=== PATIENT | female | born 1950 | race Caucasian/White ===

== ENCOUNTER 2018-04-20 19:47 | Emergency (ER) | payer MEDICARE, OTHER ==
[2018-04-20 20:04] VITALS: BP 164/94; PULSE 72; RESP 20; TEMP 98.4; O2SAT 98
[2018-04-20 20:28] LABS: SQUAMOUS EPITHIAL 1 /hpf (0-5); URINE BACTERIA MANY (<OCC); URINE BILIRUBIN NEGATIVE (NEGATIVE); URINE BLOOD 3+ (NEGATIVE); URINE CLARITY Hazy (Clear); URINE COLOR Yellow (YELLOW); URINE GLUCOSE (UA) NORMAL (Normal); URINE LEUKOCYTE ESTERASE 3+ Leu/uL (Negative); URINE PROTEIN 2+ mg/dL (NEGATIVE); URINE UROBILINOGEN NORMAL mg/dL (0.2-1.0); WBC CLUMPS MOD /hpf
--- NOTE | 2018-04-20 20:50 | C.PDOC ---
History Of Present Illness 67 year old female presents to ED complaining of dysuria associated with mid suprapubic pressure since yesterday. Patient reports she was recently treated UTI with Vantin that was completed 2 weeks ago. Patient states she felt better until yesterday. Denies back pain, fever, vomiting hematuria. Time Seen by Provider: 04/20/18 20:10 Chief Complaint (Nursing): Female Genitourinary History Per: Patient History/Exam Limitations: no limitations Onset/Duration Of Symptoms: Days Current Symptoms Are (Timing): Still Present Past Medical History Reviewed: Historical Data, Nursing Documentation, Vital Signs Vital Signs: Last Vital Signs Temp 98.4 F 04/20/18 19:58 Pulse 72 04/20/18 19:58 Resp 20 04/20/18 19:58 BP 164/94 H 04/20/18 19:58 Pulse Ox 98 04/20/18 21:25 - Medical History PMH: Arthritis, HTN Denies: Chronic Kidney Disease Surgical History: No Surg Hx Family History: States: No Known Family Hx - Social History Hx Alcohol Use: No Hx Substance Use: No Review Of Systems Except As Marked, All Systems Reviewed And Found Negative. Constitutional: Negative for: Fever Gastrointestinal: Positive for: Other (mid suprapubic pressure). Negative for: Vomiting Genitourinary: Positive for: Dysuria. Negative for: Hematuria Musculoskeletal: Negative for: Back Pain Physical Exam - Physical Exam Appears: Non-toxic, No Acute Distress Skin: Warm, Dry Head: Atraumatic, Normacephalic Eye(s): bilateral: Normal Inspection Gastrointestinal/Abdominal: Soft, No Tenderness Back: No CVA Tenderness Neurological/Psych: Oriented x3, Normal Speech, Normal Cognition ED Course And Treatment O2 Sat by Pulse Oximetry: 98 (RA) Pulse Ox Interpretation: Normal Progress Note: UA indicated UTI. Pyridium ordered. Urine culture was sent. Patient refusing RX for cipro- states it causes severe nausea. Pt also refused amoxicillin - states has taken same in the past for Uti without relief. Pt will be d/c on macrobid- first dose given. Pt remained stable showing no signs of distress.Advised PMD follwo up in 2 days. Disposition Counseled Patient/Family Regarding: Diagnosis, Need For Followup - Disposition Referrals: Kristen Waters [[employer]] - Disposition: HOME/ ROUTINE Disposition Time: 20:50 Condition: STABLE Additional Instructions: Increase PO fluids Take meds as directed Return to ER if worse Prescriptions: Nitrofurantoin Macrocrystals [Macrobid] 100 mg PO BID #14 cap Phenazopyridine HCl [Pyridium] 100 mg PO TID #6 tab Instructions: Urinary Tract Infection, Adult (DC) Forms: MOGL (Polish) - Clinical Impression Clinical Impression: UTI (urinary tract infection) - PA / BODY LINER / Resident Statement MD/DO has reviewed & agrees with the documentation as recorded. - Scribe Statement The provider has reviewed the documentation as recorded by the Darrynibe Ashutosh Rico All medical record entries made by the Kristin were at my direction and personally dictated by me. I have reviewed the chart and agree that the record accurately reflects my personal performance of the history, physical exam, medical decision making, and the department course for this patient. I have also personally directed, reviewed, and agree with the discharge instructions and disposition.
== END 2018-04-20 21:29 | disposition home or self-care (01) ==
LOC: C.ER 19:47
DX: N39.0 Urinary tract infection, site not specified (principal); I10 Essential (primary) hypertension

== ENCOUNTER 2018-04-23 07:38 | Inpatient (IN) | payer MEDICARE, OTHER ==
[2018-04-23 07:44] VITALS: BMI 29.0
[2018-04-23 09:12] LABS: BASO # 1.4 K/uL (0.0-0.2); LYMPH % 4.3 % (20.0-40.0); MEAN PLATELET VOLUME 10.8 fL (7.2-11.7)
[2018-04-23] MEDS: Sodium Chloride 0.9% 1,000 ML IV SCH (09:13)
[2018-04-23 09:18] LABS: BASO % 3.1 % (0.0-2.0); EOS # 1.1 K/uL (0.0-0.7); EOS % 2.5 % (0.0-4.0); HEMOGLOBIN 11.1 g/dL (11.0-16.0); MEAN CELL VOLUME 89.8 fL (81.0-99.0); MEAN CORPUSCULAR HEMOGLOBIN 28.9 pg (27.0-31.0); MEAN CORPUSCULAR HGB CONC 32.2 g/dL (33.0-37.0); MONO % 8.8 % (0.0-10.0); NEUT # 37.5 K/uL (1.8-7.0); NEUT % 81.3 % (50.0-75.0); NRBC % 0.1 % (0.0-2.0); RBC 3.86 Mil/uL (3.80-5.20); RED CELL DISTRIBUTION WIDTH 19.1 % (11.5-14.5)
[2018-04-23 09:19] LABS: PLATELET COUNT 120 K/uL (130-400)
[2018-04-23 09:23] LABS: ALBUMIN 2.7 g/dL (3.5-5.0); CALCIUM 6.2 mg/dl (8.6-10.4)
--- NOTE | 2018-04-23 10:03 | C.PDOC ---
History Of Present Illness 67 year old female, whose PMHx includes myelofibrosis and renal insufficiency, presents to the ED for evaluation of right flank pain which began last night. Patient reports she had nausea and several episodes of vomiting today. Patient states over the past month, patient was admitted at [facility] ([facility] for pyelonephritis and given antibiotics. Patient was evaluated in this ED on 04/20 for dysuria. Patient denies fever, chills, abdominal pain. Time Seen by Provider: 04/23/18 07:52 Chief Complaint (Nursing): Back Pain History Per: Patient History/Exam Limitations: no limitations Onset/Duration Of Symptoms: Hrs Current Symptoms Are (Timing): Still Present Quality Of Discomfort: "Pain" Additional History Per: Patient Past Medical History Reviewed: Historical Data, Nursing Documentation, Vital Signs Vital Signs: Last Vital Signs Temp 100.6 F H 04/25/18 00:00 Pulse 89 04/25/18 00:00 Resp 20 04/25/18 00:00 BP 108/63 04/25/18 00:00 Pulse Ox 97 04/25/18 09:40 - Medical History PMH: Arthritis, HTN Denies: Chronic Kidney Disease Surgical History: No Surg Hx Family History: States: Unknown Family Hx - Social History Hx Alcohol Use: No Hx Substance Use: No - Immunization History Hx Influenza Vaccination: No Hx Pneumococcal Vaccination: No Review Of Systems Constitutional: Negative for: Fever, Chills Cardiovascular: Negative for: Chest Pain, Light Headedness Respiratory: Negative for: Cough, Shortness of Breath Gastrointestinal: Positive for: Nausea, Vomiting. Negative for: Abdominal Pain Musculoskeletal: Positive for: Other (right flank pain ) Skin: Negative for: Rash Neurological: Negative for: Weakness, Numbness Physical Exam - Physical Exam Appears: Non-toxic, No Acute Distress Skin: Normal Color, Warm, Dry Head: Atraumatic, Normacephalic Eye(s): bilateral: Normal Inspection Oral Mucosa: Dry Neck: Supple Chest: Symmetrical, No Deformity, No Tenderness Cardiovascular: Rhythm Regular, No Murmur Respiratory: Normal Breath Sounds, No Rales, No Rhonchi, No Wheezing Gastrointestinal/Abdominal: Soft, No Tenderness, No Guarding, No Rebound Back: CVA Tenderness (right-sided ) Extremity: Normal ROM, Capillary Refill (less than 2 seconds ) Neurological/Psych: Oriented x3, Normal Speech, Normal Cognition ED Course And Treatment - Laboratory Results Result Diagrams: 04/25/18 08:02 04/25/18 06:53 O2 Sat by Pulse Oximetry: 97 (on RA) Pulse Ox Interpretation: Normal - CT Scan/US CT A/P Other Rad Studies (CT/US): Read By Radiologist, Radiology Report Reviewed CT/US Interpretation: PROCEDURE: CT Abdomen and Pelvis without intravenous contrast. HISTORY: right flank pain, recurrent uti. COMPARISON: None. TECHNIQUE: Helical CT of the abdomen and pelvis was performed without oral or intravenous contrast as per referring physician request. Contrast dose: None. Radiation dose: Total exam DLP = 856.39 mGy-cm. This CT exam was performed using one or more of the following dose reduction techniques: Automated exposure control, adjustment of the mA and/or kV according to patient size, and/ or use of iterative reconstruction technique. FINDINGS: LOWER THORAX: Cardiomegaly is identified. No pleural or pericardial effusion. Small hiatal hernia is apparent. LIVER: No focal mass is seen throughout the unenhanced liver. The carrie hepatis appears prominent. Further, extensive varices identified at the gastro panic ligament as well as the bilateral renal distribution in the upper anterior bowel mesentery in a pattern suspicious for hepatofugal blood flow. Clinically correlate further. Liver surface is not appear prominently nodular however and sclerosis is not clearly identified although it may be cryptogenic type. GALLBLADDER AND BILE DUCTS: A large calculus is identified calcified within the lumen measuring at least 2.9 cm with the gallbladder otherwise unremarkable appearing. PANCREAS: Unremarkable. No gross lesion or ductal dilatation. SPLEEN: Splenomegaly is identified up to 14.8 cm without obvious mass this may be a function of hepatofugal blood flow. ADRENALS: Unremarkable. No mass. KIDNEYS AND URETERS : The left kidney appears unremarkable unenhanced. The right kidney is hydronephrotic to [id number] severity with prominent perinephric reaction. Hydroureter appears [id number] severity as well, due to either a lucent calculus, expelled calculus or distal right ureteral stricture. No radiodense urolithiasis is identified bilaterally including within the urinary bladder. VASCULATURE: Atherosclerotic aorta. No aortic aneurysm. BOWEL: Unremarkable. No obstruction. No gross mural thickening. APPENDIX: Unremarkable. Normal appendix. PERITONEUM: Unremarkable. No free fluid. No free air. LYMPH NODES: Unremarkable. No enlarged lymph nodes. BLADDER: Unremarkable. REPRODUCTIVE: Unremarkable. BONES: No acute fracture. OTHER FINDINGS: None. IMPRESSION: 1. Right perinephric reaction is appreciated with mild to moderate right hydroureteronephrosis potentially on the basis of distal right ureteral stricture, lucent calculus or expelled calculus. No radiodense urolithiasis identified bilaterally including urinary bladder. Left kidney appears unremarkable. 2. Prominent carrie hepatis with extensive upper abdominal varices and splenomegaly suspicious for pattern blood flow. No gross pattern of hepatic cirrhosis. Cryptogenic cirrhosis is a possibility. Clinically correlate further. 3. Large calculus within the gallbladder with the gallbladder otherwise unremarkable appearing. Medical Decision Making Medical Decision Making: Impression: 67 year old female with right flank pain Plan: * bloodwork * urinalysis * CT A/P * Rocephin IVP * Tylenol PO * Zofran IVP * IV Fluids * reassess and disposition Progress: Bloodwork, urinalysis, CT Abdomen/Pelvis ordered and reviewed. Rocephin IVP, Tylenol PO, Zofran IVP, IV Fluids given. pt with recurrent uti and pyelo, recent admit to [facility] [place] and seen here in ed 3 days ago, on macrobid, with flank pain. ct shows inflammation right kidney. discussed with Dr Keyanna Gutiérrez, will admit to him per pt's pmd Dr Alber Mcbride. with requests for hem/onc (Olena Mcbride) and urology consults. pt started on rocephin based on urine culture results from ed visit 04/[address] Ria Gutiérrez Doctor Will See Patient In The: Hospital - Disposition Disposition: HOSPITALIZED Disposition Time: 11:54 Condition: GOOD - Clinical Impression Clinical Impression: Pyelonephritis due to Escherichia coli, Leucocytosis - PA / ASSISTANT DRAFTER / Resident Statement MD/DO has reviewed & agrees with the documentation as recorded. - Scribe Statement The provider has reviewed the documentation as recorded by the Scribe (Suzanne Gutiérrez) All medical record entries made by the Scribe were at my direction and personally dictated by me. I have reviewed the chart and agree that the record accurately reflects my personal performance of the history, physical exam, medical decision making, and the department course for this patient. I have also personally directed, reviewed, and agree with the discharge instructions and disposition.
[2018-04-23 10:04] LABS: ANISOCYTOSIS SLIGHT; BANDS 14 % (0-2); EOSINOPHIL 3 % (0-4); LYMPHOCYTE 6 % (20-40); MICROCYTOSIS SLIGHT; MONOCYTE 12 % (0-10); MYELOCYTE 3 % (0-0); NEUTROPHIL 62 % (50-75); NUCLEATED RED BLOOD CELL 1 % (0-0); PLATELET ESTIMATE SLIGHTLY DECREASED (NORMAL); POIKILOCYTOSIS SLIGHT; TOTAL CELLS COUNTED 100
[2018-04-23 10:05] LABS: HYPOCHROMIC SLIGHT; OVALOCYTES SLIGHT; POLYCHROMIC SLIGHT; TEARDROP CELLS SLIGHT
[2018-04-23 10:06] LABS: LARGE PLATELETS PRESENT
[2018-04-23 10:17] LABS: SQUAMOUS EPITHIAL 3 /hpf (0-5); URINE BACTERIA OCC (<OCC); URINE BILIRUBIN NEGATIVE (NEGATIVE); URINE BLOOD 3+ (NEGATIVE); URINE CLARITY Hazy (Clear); URINE COLOR Amber (YELLOW); URINE GLUCOSE (UA) NORMAL (Normal); URINE LEUKOCYTE ESTERASE 1+ Leu/uL (Negative); URINE PROTEIN 2+ mg/dL (NEGATIVE); URINE UROBILINOGEN NORMAL mg/dL (0.2-1.0)
[2018-04-23 10:23] LABS: VENOUS BLOOD GAS BASE EXCESS -6.1 mmol/L (0.0-2.0); VENOUS BLOOD GAS PCO2 42 mmHg (40-60); VENOUS BLOOD GAS PO2 30 mm/Hg (30-55); VENOUS BLOOD PH 7.29 (7.32-7.43)
[2018-04-23] MEDS ORDERED: cefTRIAXone IV 1 gm in Dextros 1 GM in Dextrose 5% In Water 50 ML IVPB STA (10:24)
[2018-04-23] MEDS ORDERED: cefTRIAXone 1 gm 1 GM/100 ML BAG IVPB ONE (10:49)
--- NOTE | 2018-04-23 10:50 | CT ---
Date of service: 04/23/2018 PROCEDURE: CT Abdomen and Pelvis without intravenous contrast HISTORY: right flank pain, recurrent uti COMPARISON: None. TECHNIQUE: Helical CT of the abdomen and pelvis was performed without oral or intravenous contrast as per referring physician request. Contrast dose: None Radiation dose: Total exam DLP = 856.39 mGy-cm. This CT exam was performed using one or more of the following dose reduction techniques: Automated exposure control, adjustment of the mA and/or kV according to patient size, and/or use of iterative reconstruction technique. FINDINGS: LOWER THORAX: Cardiomegaly is identified. No pleural or pericardial effusion. Small hiatal hernia is apparent. LIVER: No focal mass is seen throughout the unenhanced liver. The carrie hepatis appears prominent. Further, extensive varices identified at the gastro panic ligament as well as the bilateral renal distribution in the upper anterior bowel mesentery in a pattern suspicious for hepatofugal blood flow. Clinically correlate further. Liver surface is not appear prominently nodular however and sclerosis is not clearly identified although it may be cryptogenic type. GALLBLADDER AND BILE DUCTS: A large calculus is identified calcified within the lumen measuring at least 2.9 cm with the gallbladder otherwise unremarkable appearing. PANCREAS: Unremarkable. No gross lesion or ductal dilatation. SPLEEN: Splenomegaly is identified up to 14.8 cm without obvious mass this may be a function of hepatofugal blood flow. ADRENALS: Unremarkable. No mass. KIDNEYS AND URETERS: The left kidney appears unremarkable unenhanced. The right kidney is hydronephrotic to [id number] severity with prominent perinephric reaction. Hydroureter appears [id number] severity as well, due to either a lucent calculus, expelled calculus or distal right ureteral stricture. No radiodense urolithiasis is identified bilaterally including within the urinary bladder. VASCULATURE: Atherosclerotic aorta. No aortic aneurysm. BOWEL: Unremarkable. No obstruction. No gross mural thickening. APPENDIX: Unremarkable. Normal appendix. PERITONEUM: Unremarkable. No free fluid. No free air. LYMPH NODES: Unremarkable. No enlarged lymph nodes. BLADDER: Unremarkable. REPRODUCTIVE: Unremarkable. BONES: No acute fracture. OTHER FINDINGS: None. IMPRESSION: 1. Right perinephric reaction is appreciated with mild to moderate right hydroureteronephrosis potentially on the basis of distal right ureteral stricture, lucent calculus or expelled calculus. No radiodense urolithiasis identified bilaterally including urinary bladder. Left kidney appears unremarkable. 2. Prominent carrie hepatis with extensive upper abdominal varices and splenomegaly suspicious for pattern blood flow. No gross pattern of hepatic cirrhosis. Cryptogenic cirrhosis is a possibility. Clinically correlate further. 3. Large calculus within the gallbladder with the gallbladder otherwise unremarkable appearing.
--- NOTE | 2018-04-23 21:44 | CP.PCM.HP ---
History of Present Illness - History of Present Illness History of Present Illness: 67-year-old female with PMH of arthritis, HTN, renal insufficiency, myelofibrosis comes to ED with complaints of right flank pain since last night. Pain is associated with nausea and several episodes of vomiting today. She was admitted to [facility] [place] for pyelonephritis and given antibiotics over last month, was evaluated in ED on 04/20 for dysuria. Denies fever, chills, abdominal pain, nausea, vomiting. Past Patient History - Infectious Disease Hx of Infectious Diseases: None - Past Medical History & Family History Past Medical History?: Yes - Past Social History Smoking Status: Never Smoked - CARDIAC Hx Hypertension: Yes - PULMONARY Hx Respiratory Disorders: No - NEUROLOGICAL Hx Neurological Disorder: No - RENAL Hx Chronic Kidney Disease: No - ENDOCRINE/METABOLIC Hx Endocrine Disorders: No - HEMATOLOGICAL/ONCOLOGICAL Other/Comment: Myelofibrosis - INTEGUMENTARY Hx Dermatological Problems: No - MUSCULOSKELETAL/RHEUMATOLOGICAL Hx Arthritis: Yes - GASTROINTESTINAL Hx Gastrointestinal Disorders: No - GENITOURINARY/GYNECOLOGICAL Hx Genitourinary Disorders: No - PSYCHIATRIC Hx Substance Use: No - SURGICAL HISTORY Hx Surgeries: No - ANESTHESIA Hx Anesthesia: No Meds Allergies/Adverse Reactions: Allergies Allergy/AdvReac Type Severity Reaction Status Date / Time No Known Allergies Allergy Verified 04/23/18 07:41 Physical Exam - Constitutional Appears: Well - Head Exam Head Exam: ATRAUMATIC, NORMAL INSPECTION, NORMOCEPHALIC - Eye Exam Eye Exam: EOMI, Normal appearance, PERRL Pupil Exam: NORMAL ACCOMODATION, PERRL - ENT Exam ENT Exam: Mucous Membranes Moist, Normal Exam - Neck Exam Neck exam: Positive for: Normal Inspection - Respiratory Exam Respiratory Exam: Decreased Breath Sounds - Cardiovascular Exam Cardiovascular Exam: REGULAR RHYTHM, +S1, +S2 - GI/Abdominal Exam GI & Abdominal Exam: Diminished Bowel Sounds, Soft - Rectal Exam Rectal Exam: Deferred Results - Vital Signs Recent Vital Signs: Last Vital Signs Temp 97.9 F 04/23/18 16:00 Pulse 67 04/23/18 16:00 Resp 20 04/23/18 16:00 BP 148/79 04/23/18 16:00 Pulse Ox 98 04/23/18 20:26 - Labs Result Diagrams: 04/24/18 07:31 04/24/18 07:31 Labs: Laboratory Results - last 24 hr 04/23/18 04/23/18 04/23/18 09:06 09:06 10:03 WBC 46.0 H* RBC 3.86 Hgb 11.1 Hct 34.7 MCV 89.8 MCH 28.9 MCHC 32.2 L RDW 19.1 H Plt Count 120 L MPV 10.8 Neut % (Auto) 81.3 H Lymph % (Auto) 4.3 L Iron % (Auto) 8.8 Eos % (Auto) 2.5 Baso % (Auto) 3.1 H Neut # (Auto) 37.5 H Lymph # (Auto) 2.0 Iron # (Auto) 4.0 H Eos # (Auto) 1.1 H Baso # (Auto) 1.4 H Neutrophils % (Manual) 62 Band Neutrophils % 14 H* Lymphocytes % (Manual) 6 L Monocytes % (Manual) 12 H Eosinophils % (Manual) 3 Myelocytes % 3 H Nucleated RBC % 1 H Platelet Estimate Slightly decreased L Large Platelets Present Polychromasia Slight Hypochromasia (manual) Slight Poikilocytosis (manual Slight Anisocytosis (manual) Slight Microcytosis (manual) Slight Macrocytosis (manual) Slight Tear Drop Cells Slight Ovalocytes Slight Smear Path Review pO2 VBG pH VBG pCO2 VBG HCO3 VBG Total CO2 VBG O2 Sat (Calc) VBG Base Excess VBG Potassium Glucose Lactate Sodium 138 Potassium 3.6 Chloride 117 H Carbon Dioxide 15 L Anion Gap 10 BUN 36 H Creatinine 1.8 H Est GFR ( Amer) 34 Est GFR (Non-Af Amer) 28 Random Glucose 92 Calcium 6.2 L Total Bilirubin 0.4 AST 12 L ALT 22 Alkaline Phosphatase 33 L Total Protein 5.3 L Albumin 2.7 L Globulin 2.6 Albumin/Globulin Ratio 1.0 Lipase 128 Venous Blood Potassium Urine Color Mahnaz Urine Clarity Hazy Urine pH 5.0 Ur Specific [place] 1.009 Urine Protein 2+ H Urine Glucose (UA) Normal Urine Ketones Negative Urine Blood 3+ H Urine Nitrate Positive H Urine Bilirubin Negative Urine Urobilinogen Normal Ur Leukocyte Esterase 1+ H Urine WBC (Auto) 97 H Urine RBC (Auto) 104 H Ur Squamous Epith Cells 3 Urine Bacteria Occ H 04/23/18 10:20 WBC RBC Hgb Hct MCV MCH MCHC RDW Plt Count MPV Neut % (Auto) Lymph % (Auto) Iron % (Auto) Eos % (Auto) Baso % (Auto) Neut # (Auto) Lymph # (Auto) Iron # (Auto) Eos # (Auto) Baso # (Auto) Neutrophils % (Manual) Band Neutrophils % Lymphocytes % (Manual) Monocytes % (Manual) Eosinophils % (Manual) Myelocytes % Nucleated RBC % Platelet Estimate Large Platelets Polychromasia Hypochromasia (manual) Poikilocytosis (manual Anisocytosis (manual) Microcytosis (manual) Macrocytosis (manual) Tear Drop Cells Ovalocytes Smear Path Review pO2 30 VBG pH 7.29 L VBG pCO2 42 VBG HCO3 18.8 VBG Total CO2 21.5 L VBG O2 Sat (Calc) 56.4 VBG Base Excess -6.1 L VBG Potassium 5.0 Glucose 106 H Lactate 1.0 Sodium 138.0 Potassium Chloride 109.0 H Carbon Dioxide Anion Gap BUN Creatinine Est GFR ( Amer) Est GFR (Non-Af Amer) Random Glucose Calcium Total Bilirubin AST ALT Alkaline Phosphatase Total Protein Albumin Globulin Albumin/Globulin Ratio Lipase Venous Blood Potassium 5.0 Urine Color Urine Clarity Urine pH Ur Specific [place] Urine Protein Urine Glucose (UA) Urine Ketones Urine Blood Urine Nitrate Urine Bilirubin Urine Urobilinogen Ur Leukocyte Esterase Urine WBC (Auto) Urine RBC (Auto) Ur Squamous Epith Cells Urine Bacteria
--- NOTE | 2018-04-23 23:01 | CP.PCM.CON ---
History of Present Illness - History of Present Illness History of Present Illness: Chief complaint: Right flank pain HPI: 67-year-old female with a history of hypertension, myelofibrosis, chronic leukocytosis on treatment for myelofibrosis by oncologist came to the emergency room with right flank pain. Patient over the course of 6 weeks was complaining of frequent episodes of urinary tract infection, hospitalized one time. She was also taking multiple medications. 6 weeks ago patient was seen by oncologist, in the office patient had a urinary analysis, showing evidence of E. coli, and was given ciprofloxacin. At that time the organism was insensitive. As the symptoms did not improve patient went to the hospital, hospitalized at [facility], and she stayed there for 5 days, and IV antibiotic, at that time had a CAT scan of the abdomen and pelvis. Patient was sent home with p.o. antibiotic noted again patient had another episode of urinary infection, and was prescribed Macrodantin, with any resolution. Patient came to the emergency room with the sudden onset of worsening right flank pain, associate with the nausea and vomiting. In the emergency room patient was admitted because of the suspected pyelonephritis. Now patient is still having some pain in the right flank, received morphine, some improvement noted. No burning urination noted, no blood in the urine. Patient has no fever or chills. Past medical history: Myelofibrosis. Hypertension. Allergies no known drug allergy Personal history: Non-smoker nonalcoholic functional capacity is good Family history noncontributory Review of system: Patient has no headache, no visual symptoms no chest pain or shortness of breath , occasional shaking noted, right flank pain on and off noted, suprapubic pain also noted On examination: Vital signs are stable. Afebrile. But low-grade temperature noted. Chest good air entry bilaterally regular heart sound, abdomen nontender, but the right flank tenderness noted, and suprapubic minimal tenderness noted. Patient's labs reviewed Elevated WBC noted, associated with the bands CAT scan of the abdomen showing evidence of changes in the liver. Also there is a hydronephrosis mild to moderate. And hydroureter. Involving the right side. Peripheral fat stranding noted Assessment: 67-year-old female came to the emergency room with acute pyelonephritis likely, and urinary tract infection. Possible radiolucent stone obstructing the right hydroureter. Also possible stricture cannot be ruled out. Recurrent urinary tract infection, not resolved with the medications now. In my opinion patient may need intervention. Neurological, infectious disease evaluation called in. I also spoke to the oncologist. Will hold of the cancer treatment for now. Primaxin IV intravenous IV fluid and will follow the patient. I spoke to the patient's daughter in detail Past Patient History - Infectious Disease Hx of Infectious Diseases: None - Past Medical History & Family History Past Medical History?: Yes - Past Social History Smoking Status: Never Smoked - CARDIAC Hx Hypertension: Yes - PULMONARY Hx Respiratory Disorders: No - NEUROLOGICAL Hx Neurological Disorder: No - RENAL Hx Chronic Kidney Disease: No - ENDOCRINE/METABOLIC Hx Endocrine Disorders: No - HEMATOLOGICAL/ONCOLOGICAL Other/Comment: Myelofibrosis - INTEGUMENTARY Hx Dermatological Problems: No - MUSCULOSKELETAL/RHEUMATOLOGICAL Hx Arthritis: Yes - GASTROINTESTINAL Hx Gastrointestinal Disorders: No - GENITOURINARY/GYNECOLOGICAL Hx Genitourinary Disorders: No - PSYCHIATRIC Hx Substance Use: No - SURGICAL HISTORY Hx Surgeries: No - ANESTHESIA Hx Anesthesia: No Meds Allergies/Adverse Reactions: Allergies Allergy/AdvReac Type Severity Reaction Status Date / Time No Known Allergies Allergy Verified 04/23/18 07:41 - Medications Medications: Current Medications Atenolol (Tenormin) 100 mg PO DAILY NAN Famotidine (Pepcid) 20 mg IVP DAILY NAN Sodium Chloride (Sodium Chloride 0.9%) 1,000 mls @ 100 mls/hr IV .Q10H [facility] Last Admin: 04/23/18 09:13 Dose: 100 mls/hr Ceftriaxone Sodium 1 gm/ (Sodium Chloride) 100 mls @ 100 mls/hr IVPB DAILY NAN PRN Reason: Protocol Imipenem/Cilastatin Sodium 500 (mg/ Sodium Chloride) 100 mls @ 100 mls/hr IVPB Q8 NAN PRN Reason: Protocol Last Admin: 04/23/18 22:17 Dose: 100 mls/hr Morphine Sulfate (Morphine) 2 mg IVP Q6H PRN PRN Reason: Pain Last Admin: 04/23/18 17:32 Dose: 2 mg Pneumococcal Polyvalent Vaccine (Pneumovax 23 Vaccine) 0.5 ml IM .ONCE ONE Stop: 04/26/18 08:01 Results - Vital Signs Recent Vital Signs: Last Vital Signs Temp 97.9 F 04/23/18 16:00 Pulse 67 04/23/18 16:00 Resp 20 04/23/18 16:00 BP 148/79 04/23/18 16:00 Pulse Ox 98 04/23/18 20:26 - Labs Result Diagrams: 04/24/18 07:31 04/24/18 07:31 Labs: Laboratory Results - last 24 hr 04/23/18 04/23/18 04/23/18 09:06 09:06 10:03 WBC 46.0 H* RBC 3.86 Hgb 11.1 Hct 34.7 MCV 89.8 MCH 28.9 MCHC 32.2 L RDW 19.1 H Plt Count 120 L MPV 10.8 Neut % (Auto) 81.3 H Lymph % (Auto) 4.3 L [place] % (Auto) 8.8 Eos % (Auto) 2.5 Baso % (Auto) 3.1 H Neut # (Auto) 37.5 H Lymph # (Auto) 2.0 [place] # (Auto) 4.0 H Eos # (Auto) 1.1 H Baso # (Auto) 1.4 H Neutrophils % (Manual) 62 Band Neutrophils % 14 H* Lymphocytes % (Manual) 6 L Monocytes % (Manual) 12 H Eosinophils % (Manual) 3 Myelocytes % 3 H Nucleated RBC % 1 H Platelet Estimate Slightly decreased L Large Platelets Present Polychromasia Slight Hypochromasia (manual) Slight Poikilocytosis (manual Slight Anisocytosis (manual) Slight Microcytosis (manual) Slight Macrocytosis (manual) Slight Tear Drop Cells Slight Ovalocytes Slight Smear Path Review pO2 VBG pH VBG pCO2 VBG HCO3 VBG Total CO2 VBG O2 Sat (Calc) VBG Base Excess VBG Potassium Glucose Lactate Sodium 138 Potassium 3.6 Chloride 117 H Carbon Dioxide 15 L Anion Gap 10 BUN 36 H Creatinine 1.8 H Est GFR ( Amer) 34 Est GFR (Non-Af Amer) 28 Random Glucose 92 Calcium 6.2 L Total Bilirubin 0.4 AST 12 L ALT 22 Alkaline Phosphatase 33 L Total Protein 5.3 L Albumin 2.7 L Globulin 2.6 Albumin/Globulin Ratio 1.0 Lipase 128 Venous Blood Potassium Urine Color [place] Urine Clarity Hazy Urine pH 5.0 Ur Specific [place] 1.009 Urine Protein 2+ H Urine Glucose (UA) Normal Urine Ketones Negative Urine Blood 3+ H Urine Nitrate Positive H Urine Bilirubin Negative Urine Urobilinogen Normal Ur Leukocyte Esterase 1+ H Urine WBC (Auto) 97 H Urine RBC (Auto) 104 H Ur Squamous Epith Cells 3 Urine Bacteria Occ H 04/23/18 10:20 WBC RBC Hgb Hct MCV MCH MCHC RDW Plt Count MPV Neut % (Auto) Lymph % (Auto) [place] % (Auto) Eos % (Auto) Baso % (Auto) Neut # (Auto) Lymph # (Auto) [place] # (Auto) Eos # (Auto) Baso # (Auto) Neutrophils % (Manual) Band Neutrophils % Lymphocytes % (Manual) Monocytes % (Manual) Eosinophils % (Manual) Myelocytes % Nucleated RBC % Platelet Estimate Large Platelets Polychromasia Hypochromasia (manual) Poikilocytosis (manual Anisocytosis (manual) Microcytosis (manual) Macrocytosis (manual) Tear Drop Cells Ovalocytes Smear Path Review pO2 30 VBG pH 7.29 L VBG pCO2 42 VBG HCO3 18.8 VBG Total CO2 21.5 L VBG O2 Sat (Calc) 56.4 VBG Base Excess -6.1 L VBG Potassium 5.0 Glucose 106 H Lactate 1.0 Sodium 138.0 Potassium Chloride 109.0 H Carbon Dioxide Anion Gap BUN Creatinine Est GFR ( Amer) Est GFR (Non-Af Amer) Random Glucose Calcium Total Bilirubin AST ALT Alkaline Phosphatase Total Protein Albumin Globulin Albumin/Globulin Ratio Lipase Venous Blood Potassium 5.0 Urine Color Urine Clarity Urine pH Ur Specific [place] Urine Protein Urine Glucose (UA) Urine Ketones Urine Blood Urine Nitrate Urine Bilirubin Urine Urobilinogen Ur Leukocyte Esterase Urine WBC (Auto) Urine RBC (Auto) Ur Squamous Epith Cells Urine Bacteria
[2018-04-23 23:07] LABS: INR 1.3; PROTHROMBIN TIME 14.2 SECONDS (9.7-12.2)
[2018-04-24] MEDS: Sodium Chloride 0.9% 1,000 ML IV SCH ×2 (05:46→15:15)
[2018-04-24 07:43] LABS: EOS # 0.5 K/uL (0.0-0.7); EOS % 1.9 % (0.0-4.0); HEMOGLOBIN 10.1 g/dL (11.0-16.0); MEAN CORPUSCULAR HGB CONC 32.9 g/dL (33.0-37.0); WHITE BLOOD COUNT 27.6 K/uL (4.8-10.8)
[2018-04-24 07:53] LABS: BASO # 0.4 K/uL (0.0-0.2); BASO % 1.5 % (0.0-2.0); LYMPH # 0.9 K/uL (1.0-4.3); LYMPH % 3.3 % (20.0-40.0); MEAN CELL VOLUME 88.6 fL (81.0-99.0); MEAN CORPUSCULAR HEMOGLOBIN 29.2 pg (27.0-31.0); MEAN PLATELET VOLUME 11.4 fL (7.2-11.7); MONO # 2.4 K/uL (0.0-0.8); MONO % 8.5 % (0.0-10.0); NEUT # 23.4 K/uL (1.8-7.0); NEUT % 84.8 % (50.0-75.0); NRBC % 0.3 % (0.0-2.0); RBC 3.46 Mil/uL (3.80-5.20); RED CELL DISTRIBUTION WIDTH 18.3 % (11.5-14.5)
[2018-04-24 07:55] LABS: PLATELET COUNT 88 K/uL (130-400)
[2018-04-24 08:22] LABS: ALB/GLOB RATIO 1.2 (1.0-2.1); ALBUMIN 3.5 g/dL (3.5-5.0)
[2018-04-24 09:31] LABS: BANDS 4 % (0-2); LYMPHOCYTE 4 % (20-40); MONOCYTE 8 % (0-10); MYELOCYTE 4 % (0-0); NEUTROPHIL 80 % (50-75); NUCLEATED RED BLOOD CELL 1 % (0-0); TOTAL CELLS COUNTED 100
[2018-04-24 09:37] LABS: ANISOCYTOSIS SLIGHT; HYPOCHROMIC SLIGHT; PLATELET ESTIMATE DECREASED (NORMAL); POIKILOCYTOSIS SLIGHT
[2018-04-24 09:38] LABS: OVALOCYTES SLIGHT; TEARDROP CELLS SLIGHT
[2018-04-24 09:39] LABS: LARGE PLATELETS PRESENT
[2018-04-24] MEDS ORDERED: RUXOLITINIB PHOSPHATE 10 MG PO SCH (10:00)
--- NOTE | 2018-04-24 13:03 | CP.PCM.CON ---
History of Present Illness - History of Present Illness History of Present Illness: 67 year old female with a history of myelofibrosis on Jakafi and Hydrea, presenting with right flank/abdominal pain and admitted with pyelonephritis/ UTI. The patient was diagnosed with a UTI about 6 weeks ago and prescribed oral antibiotics which failed to improve her symptoms. She was instructed to go to the ER for further work up and inpatient IV antibiotic treatment. She underwent several days of antibiotics and was discharged on PO antibiotics. Shortly after completing her antibiotic course, she began having burning with urination which progressed to flank pain associated with N/V. A CT A/P showed right hydroureteronephrosis with possible ureteral stricture. Also noted, hepatosplenomegaly with upper abdominal varices. Past medical history: Myelofibrosis, recurrent UTI Past surgical history: Denies Family history: Denies hematologic and oncologic problems Social history: Denies tobacco, alcohol, and illicit drug use Allergies: NKA Review of systems: All remaining review of systems including HEENT, cardiovascular, respiratory, gastrointestinal, genitourinary, musculoskeletal, dermatologic, neurologic, and psychiatric are negative unless mentioned in the HPI. Past Patient History - Infectious Disease Hx of Infectious Diseases: None - Past Medical History & Family History Past Medical History?: Yes - Past Social History Smoking Status: Never Smoked - CARDIAC Hx Hypertension: Yes - PULMONARY Hx Respiratory Disorders: No - NEUROLOGICAL Hx Neurological Disorder: No - RENAL Hx Chronic Kidney Disease: No - ENDOCRINE/METABOLIC Hx Endocrine Disorders: No - HEMATOLOGICAL/ONCOLOGICAL Other/Comment: Myelofibrosis - INTEGUMENTARY Hx Dermatological Problems: No - MUSCULOSKELETAL/RHEUMATOLOGICAL Hx Arthritis: Yes - GASTROINTESTINAL Hx Gastrointestinal Disorders: No - GENITOURINARY/GYNECOLOGICAL Hx Genitourinary Disorders: No - PSYCHIATRIC Hx Substance Use: No - SURGICAL HISTORY Hx Surgeries: No - ANESTHESIA Hx Anesthesia: No Meds Allergies/Adverse Reactions: Allergies Allergy/AdvReac Type Severity Reaction Status Date / Time No Known Allergies Allergy Verified 04/23/18 07:41 - Medications Medications: Current Medications Atenolol (Tenormin) 100 mg PO DAILY [facility] Last Admin: 04/24/18 11:15 Dose: 100 mg Famotidine (Pepcid) 20 mg IVP DAILY NAN Last Admin: 04/24/18 11:14 Dose: 20 mg Sodium Chloride (Sodium Chloride 0.9%) 1,000 mls @ 100 mls/hr IV .Q10H NAN Last Admin: 04/24/18 05:46 Dose: Not Given Ceftriaxone Sodium 1 gm/ (Sodium Chloride) 100 mls @ 100 mls/hr IVPB DAILY NAN PRN Reason: Protocol Last Admin: 04/24/18 11:15 Dose: 100 mls/hr Imipenem/Cilastatin Sodium 500 (mg/ Sodium Chloride) 100 mls @ 100 mls/hr IVPB Q8 NAN PRN Reason: Protocol Last Admin: 04/24/18 05:45 Dose: 100 mls/hr Morphine Sulfate (Morphine) 2 mg IVP Q6H PRN PRN Reason: Pain Last Admin: 04/24/18 11:14 Dose: 2 mg Ondansetron HCl (Zofran Inj) 4 mg IVP Q6 PRN PRN Reason: Nausea/Vomiting Last Admin: 04/24/18 12:32 Dose: 4 mg Pneumococcal Polyvalent Vaccine (Pneumovax 23 Vaccine) 0.5 ml IM .ONCE ONE Stop: 04/26/18 08:01 Physical Exam - Head Exam Head Exam: ATRAUMATIC - Eye Exam Eye Exam: Normal appearance - ENT Exam ENT Exam: Mucous Membranes Dry - Respiratory Exam Respiratory Exam: NORMAL BREATHING PATTERN - Cardiovascular Exam Cardiovascular Exam: +S1, +S2 - GI/Abdominal Exam GI & Abdominal Exam: Normal Bowel Sounds Results - Vital Signs Recent Vital Signs: Last Vital Signs Temp 100.3 F H 04/24/18 08:31 Pulse 84 04/24/18 08:31 Resp 20 04/24/18 08:31 BP 129/70 04/24/18 08:31 Pulse Ox 95 04/24/18 08:31 - Labs Result Diagrams: 04/24/18 07:31 04/24/18 07:31 Labs: Laboratory Results - last 24 hr 04/23/18 04/23/18 04/24/18 09:06 22:59 07:31 WBC 27.6 H RBC 3.46 L Hgb 10.1 L Hct 30.7 L MCV 88.6 MCH 29.2 MCHC 32.9 L RDW 18.3 H Plt Count 88 L D MPV 11.4 Neut % (Auto) 84.8 H Lymph % (Auto) 3.3 L [place] % (Auto) 8.5 Eos % (Auto) 1.9 Baso % (Auto) 1.5 Neut # (Auto) 23.4 H Lymph # (Auto) 0.9 L [place] # (Auto) 2.4 H Eos # (Auto) 0.5 Baso # (Auto) 0.4 H Neutrophils % (Manual) 80 H Band Neutrophils % 4 H Lymphocytes % (Manual) 4 L Monocytes % (Manual) 8 Myelocytes % 4 H Nucleated RBC % 1 H Platelet Estimate Decreased L Large Platelets Present Hypochromasia (manual) Slight Poikilocytosis (manual Slight Anisocytosis (manual) Slight Macrocytosis (manual) Slight Tear Drop Cells Slight Ovalocytes Slight Smear Path Review PT 14.2 H INR 1.3 APTT 33 Sodium Potassium Chloride Carbon Dioxide Anion Gap BUN Creatinine Est GFR ( Amer) Est GFR (Non-Af Amer) Random Glucose Calcium Phosphorus Magnesium Total Bilirubin AST ALT Alkaline Phosphatase Total Protein Albumin Globulin Albumin/Globulin Ratio 04/24/18 07:31 WBC RBC Hgb Hct MCV MCH MCHC RDW Plt Count MPV Neut % (Auto) Lymph % (Auto) [place] % (Auto) Eos % (Auto) Baso % (Auto) Neut # (Auto) Lymph # (Auto) [place] # (Auto) Eos # (Auto) Baso # (Auto) Neutrophils % (Manual) Band Neutrophils % Lymphocytes % (Manual) Monocytes % (Manual) Myelocytes % Nucleated RBC % Platelet Estimate Large Platelets Hypochromasia (manual) Poikilocytosis (manual Anisocytosis (manual) Macrocytosis (manual) Tear Drop Cells Ovalocytes Smear Path Review PT INR APTT Sodium 139 Potassium 4.9 Chloride 111 H Carbon Dioxide 18 L Anion Gap 15 BUN 36 H Creatinine 2.0 H Est GFR ( Amer) 30 Est GFR (Non-Af Amer) 25 Random Glucose 111 H Calcium 8.0 L Phosphorus 3.7 Magnesium 1.6 Total Bilirubin 0.5 AST 11 L ALT 23 Alkaline Phosphatase 42 Total Protein 6.3 Albumin 3.5 D Globulin 2.9 Albumin/Globulin Ratio 1.2 Assessment & Plan (1) Leucocytosis Assessment and Plan: secondary to infection and myelofibrosis improving with antibiotics Status: Acute (2) Thrombocytopenia Assessment and Plan: element of splenic sequestration from splenomegaly ? 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 Status: Acute
--- NOTE | 2018-04-24 15:32 | CP.PCM.PN ---
Subjective - Date & Time of Evaluation Date of Evaluation: 04/24/18 Time of Evaluation: 08:30 - Subjective Subjective: clinically same Objective - Vital Signs/Intake and Output Vital Signs (last 24 hours): Temp Pulse Resp BP Pulse Ox 100.3 F H 84 20 129/70 95 04/24/18 08:31 04/24/18 08:31 04/24/18 08:31 04/24/18 08:31 04/24/18 12:00 - Medications Medications: Current Medications Atenolol (Tenormin) 100 mg PO DAILY [facility] Last Admin: 04/24/18 11:15 Dose: 100 mg Famotidine (Pepcid) 20 mg IVP DAILY [facility] Last Admin: 04/24/18 11:14 Dose: 20 mg Sodium Chloride (Sodium Chloride 0.9%) 1,000 mls @ 100 mls/hr IV .Q10H [facility] Last Admin: 04/24/18 05:46 Dose: Not Given Ceftriaxone Sodium 1 gm/ (Sodium Chloride) 100 mls @ 100 mls/hr IVPB DAILY [facility] PRN Reason: Protocol Last Admin: 04/24/18 11:15 Dose: 100 mls/hr Imipenem/Cilastatin Sodium 500 (mg/ Sodium Chloride) 100 mls @ 100 mls/hr IVPB Q8 NAN PRN Reason: Protocol Last Admin: 04/24/18 13:46 Dose: 100 mls/hr Morphine Sulfate (Morphine) 2 mg IVP Q6H PRN PRN Reason: Pain Last Admin: 04/24/18 11:14 Dose: 2 mg Ondansetron HCl (Zofran Inj) 4 mg IVP Q6 PRN PRN Reason: Nausea/Vomiting Last Admin: 04/24/18 12:32 Dose: 4 mg Pneumococcal Polyvalent Vaccine (Pneumovax 23 Vaccine) 0.5 ml IM .ONCE ONE Stop: 04/26/18 08:01 - Labs Labs: 04/24/18 07:31 04/24/18 07:31 PT 14.2 SECONDS (9.7-12.2) H 04/23/18 22:59 INR 1.3 04/23/18 22:59 APTT 33 SECONDS (21-34) 04/23/18 22:59
--- NOTE | 2018-04-24 15:51 | CARD ---
APPROVED REPORT Date of service: 04/24/2018 EXAM: Two-dimensional and M-mode echocardiogram with Doppler and color Doppler. Other Information Quality : GoodRhythm : INDICATION Infection:Rule out subacute bacterial endocarditis RISK FACTORS Hypertension 2D DIMENSIONS IVSd0.9 (0.7-1.1cm)LVDd4.8 (3.9-5.9cm) PWd0.9 (0.7-1.1cm)LVDs2.7 (2.5-4.0cm) FS (%) 42.9 %LVEF (%)73.9 (>50%) M-Mode DIMENSIONS Left Atrium (MM)4.63 (2.5-4.0cm)IVSd1.23 (0.7-1.1cm) Aortic Root3.37 (2.2-3.7cm)LVDd4.86 (4.0-5.6cm) Aortic Cusp Exc.2.32 (1.5-2.0cm)PWd0.90 (0.7-1.1cm) FS (%) 41 %LVDs2.85 (2.0-3.8cm) LVEF (%)72 (>50%) Mitral Valve MV E [id number]/sMV A Tgdneaty35.6cm/sE/A ratio1.0 TDI E/Lateral E'0.0E/Medial E'0.0 Tricuspid Valve TR Peak [id number]/sTR Peak [id number] LEFT VENTRICLE The left ventricle is normal size. There is normal left ventricular wall thickness. Left ventricle systolic function is normal. The Ejection Fraction is 65-70%. There is normal LV segmental wall motion. Transmitral Doppler flow pattern is Grade I-abnormal relaxation pattern. There is no ventricular septal defect visualized. RIGHT VENTRICLE The right ventricle is normal size. The right ventricular systolic function is normal. ATRIA The left atrium is mildly dilated. The right atrium size is normal. AORTIC VALVE The aortic valve is mildly sclerotic. The aortic valve is tri-cuspid. There is trace aortic regurgitation. There is no aortic valvular stenosis. MITRAL VALVE The mitral valve is normal in structure. There is no evidence of mitral valve prolapse. There is no mitral valve regurgitation noted. TRICUSPID VALVE The tricuspid valve is normal in structure. There is trace to mild tricuspid regurgitation. Right ventricular systolic pressure is estimated at 40-50 mmHg. There is moderate pulmonary hypertension. PULMONIC VALVE The pulmonary valve is normal in structure. There is trace pulmonic valvular regurgitation. GREAT VESSELS The aortic root is normal in size. The ascending aorta is normal in size. The IVC is normal in size and collapses >50% with inspiration. PERICARDIAL EFFUSION There is no pericardial effusion. <Conclusion> Left ventricle systolic function is normal. The Ejection Fraction is 65-70%. Transmitral Doppler flow pattern is Grade I-abnormal relaxation pattern. There is trace aortic regurgitation. There is moderate pulmonary hypertension.
--- NOTE | 2018-04-24 18:14 | CT ---
Date of service: 04/24/2018 PROCEDURE: CT Abdomen and Pelvis without intravenous contrast HISTORY: reevaluate the rt hydronephrosis COMPARISON: 04/23/2018. TECHNIQUE: CT scan of the abdomen and pelvis was performed without administration of intravenous contrast. Oral contrast was not administered. Coronal and sagittal reformatted images were obtained. . Radiation dose: Total exam DLP = 1036.63 mGy-cm. This CT exam was performed using one or more of the following dose reduction techniques: Automated exposure control, adjustment of the mA and/or kV according to patient size, and/or use of iterative reconstruction technique. FINDINGS: LOWER THORAX: Again seen is severe cardiomegaly. There is a small sliding hiatal hernia. Minimal dependent atelectasis in the lung bases. LIVER: The liver is markedly enlarged with right hepatic and caudate lobe hypertrophy. This left hepatic lobe is small in size. GALLBLADDER AND BILE DUCTS: There is a solitary large calcified gallstone. PANCREAS: Normal in size. No ductal dilatation. SPLEEN: Markedly enlarged spleen. ADRENALS: Normal in size. No discrete nodule. KIDNEYS AND URETERS: Both kidneys are normal in size. There is redemonstration of mild right hydronephrosis and mild diffuse dilatation of the right ureteral. The left kidney is normal in size without hydronephrosis or nephrolithiasis. VASCULATURE: No aortic aneurysm. There is redemonstration of an enlarged portal vein. The splenic vein is not visualized. There are extensive perisplenic, splenorenal, short gastric and esophageal varices. BOWEL: The small bowel loops are normal in caliber. The colon is normal in size. No bowel dilatation or wall thickening. No bowel obstruction. APPENDIX: Normal appendix. PERITONEUM: No free fluid. No free air. LYMPH NODES: No enlarged lymph nodes. BLADDER: The urinary bladder is partially distended. There is apparent moderate circumferential mural thickening of the bladder wall. There are also inflammatory changes in the periurethral fat the REPRODUCTIVE: The uterus is normal in size BONES: No acute fracture. There is diffuse bone demineralization and multilevel degenerative changes in the spine. OTHER FINDINGS: None. IMPRESSION: 1. 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 2. Persistent mild right hydronephrosis and mild diffuse dilatation of the right ureteral with surrounding inflammatory changes without evidence for obstructing stones. Pyelonephritis/distal ureteral stricture is a consideration. Apparent mild mural thickening of the urinary bladder wall could also be related to cystitis. Please correlate with urine analysis. 3. No other significant interval change.
--- NOTE | 2018-04-24 19:29 | CP.PCM.CON ---
History of Present Illness - History of Present Illness History of Present Illness: 67-year-old female with a history of hypertension, myelofibrosis, chronic leukocytosis on treatment for myelofibrosis by oncologist came to the emergency room with right flank pain. Was recently treated for UTI at [facility] and released on Macrobid Patient came to the emergency room with the sudden onset of worsening right flank pain, associate with the nausea and vomiting. In the emergency room patient was admitted because of the suspected pyelonephritis. Past medical history: Myelofibrosis. Hypertension. Allergies no known drug allergy SH Non-smoker nonalcoholic FH noncontributory Review of Systems - Review of Systems All systems: reviewed and no additional remarkable complaints except - Constitutional Constitutional: As Per HPI - EENT Eyes: absent: As Per HPI, Blind Spots, Blurred Vision, Change in Vision, Decreased Night Vision, Diplopia, Discharge, Dry Eye, Exophthalmos, Floaters, Irritation, Itchy Eyes, Loss of Peripheral Vision, Pain, Photophobia, Requires Corrective Lenses, Sees Flashes, Spots in Vision, Tunnel Vision, Other Visual Disturbances, Loss of Vision, Other Ears: absent: As Per HPI, Decreased Hearing, Ear Discharge, Ear Pain, Tinnitus, Abnormal Hearing, Disequilibrium, Dizziness, Other Nose/Mouth/Throat: absent: As Per HPI, Epistaxis, Nasal Congestion, Nasal Discharge, Nasal Obstruction, Nasal Trauma, Nose Pain, Post Nasal Drip, Sinus Pain, Sinus Pressure, Bleeding Gums, Change in Voice, Dental Pain, Dry Mouth, Dysphagia, Halitosis, Hoarsness, Lip Swelling, Mouth Lesions, Mouth Pain, Odynophagia, Sore Throat, Throat Swelling, Tongue Swelling, Facial Pain, Neck Pain, Neck Mass, Other - Breasts Breasts: absent: As Per HPI, Change in Shape, Mass, Pain, Nipple Discharge, Nipple Inversion, Skin Changes, Swelling, Other - Cardiovascular Cardiovascular: absent: As Per HPI, Acrocyanosis, Chest Pain, Chest Pain at Rest , Chest Pain with Activity, Claudication, Diaphoresis, Dyspnea, Dyspnea on Exertion, Edema, Irregular Heart Rhythm, Pain Radiating to Arm/Neck/Jaw, Leg Edema, Leg Ulcers, Lightheadedness, Orthopnea, Palpitations, Paroxysmal Nocturnal Dyspnea, Pedal Edema, Radiating Pain, Rapid Heart Rate, Slow Heart Rate, Syncope, Other - Respiratory Respiratory: absent: As Per HPI, Cough, Dyspnea, Hemoptysis, Dyspnea on Exertion , Wheezing, Snoring, Stridor, Pain on Inspiration, Chest Congestion, Excessive Mucous Production, Change in Mucous Color, Pain with Coughing, Other - Gastrointestinal Gastrointestinal: As Per HPI - Genitourinary Genitourinary: As Per HPI - Reproductive: Female Reproductive:Female: absent: As Per HPI, Amenorrhea, Amenorrhea/ Control, Currently Menstual, Cycle <21 Days, Cycle >35 Days, Cycle Variable, Menses 1-7 Days, Menses >/= 8 Days, Menses Variable, Cycle > 4 Weeks Between, No Menses for 6 Months, Heavy Menses, Light Menses, Normal Menses, Spotting Between Cycles , S/P Hysterectomy, Menopausal, Post Menopausal, Premenarche, Abnormal Vaginal Bleeding, Dysmenorrhea, Dyspareunia, Genital Lesions, Genital Pruritis, Pelvic Pain, Prolapse Symptoms, Sexual Dysfunction, Vaginal Discharge, Vaginal Dryness , Vaginal Odor, Vaginal Pruritis, Other - Menstruation Menstruation: absent: As Per HPI, Amenorrhea, Amenorrhea/ Control, Currently Menstual, Cycle <21 Days, Cycle >35 Days, Cycle Variable, Menses 1-7 Days, Menses >/= 8 Days, Menses Variable, Cycle > 4 Weeks Between, No Menses for 6 Months, Heavy Menses, Light Menses, Normal Menses, Spotting Between Cycles , S/P Hysterectomy, Menopausal, Post Menopausal, Premenarche, Abnormal Vaginal Bleeding, Dysmenorrhea, Other - Musculoskeletal Musculoskeletal: absent: As Per HPI, Abnormal Gait, Arthralgias, Atrophy, Back Pain, Deformity, Joint Swelling, Limited Range of Motion, Loss of Height, Muscle Cramps, Muscle Weakness, Myalgias, Neck Pain, Numbness, Radiating Pain into Limb, Stiffness, Tingling, Other - Integumentary Integumentary: absent: As Per HPI, Acne, Alopecia, Bleeding Lesions, Change in Hair, Change in Nails, Change in Pigmentation, Changing Lesions, Dry Skin, Erythema, Furuncle, Hirsutism, Lesions, New Lesions, Non-Healing Lesions, Photosensitivity, Pruritus, Rash, Skin Pain, Skin Ulcer, Sores, Striae, Swelling , Unusual Bruising, Wounds, Jaundice, Other - Neurological Neurological: absent: As Per HPI, Abnormal Gait, Abnormal Hearing, Abnormal Movements, Abnormal Speech, Behavioral Changes, Burning Sensations, Confusion, Convulsions, Disequilibrium, Dizziness, Numbness, Focal Weakness, Frequent Falls , Headaches, Lack of Coordination, Loss of Vision, Memory Loss, Paresthesias, Radicular Pain, Restless Legs, Sensory Deficit, Syncope, Tingling, Tremor, Vertigo, Weakness, Other Visual Disturbances, Other - Psychiatric Psychiatric: absent: As Per HPI, Abnormal Sleep Pattern, Anhedonia, Anxiety, Auditory Hallucinations, Behavioral Changes, Change in Appetite, Change in Libido, Confusion, Depression, Difficulty Concentrating, Hallucinations, Homicidal Ideation, Hopelessness, Irritability, Memory Loss, Mood Swings, Panic Attacks, Paranoia, Suicidal Ideation, Visual Hallucinations, Tactile Hallucinations, Other - Endocrine Endocrine: absent: As Per HPI, Change in Body Appearance, Change in Libido, Cold Intolorance, Deepening of Voice, Excessive Sweating, Fatigue, Flushing, Heat Intolorance, Increase in Ring/Shoe/Hat Size, Palpitations, Polydipsia, Polyphagia, Polyuria, Other - Hematologic/Lymphatic Hematologic: absent: As Per HPI, Easy Bleeding, Easy Bruising, Lymphadenopathy, Other Past Patient History - Infectious Disease Hx of Infectious Diseases: None - Past Medical History & Family History Past Medical History?: Yes - Past Social History Smoking Status: Never Smoked - CARDIAC Hx Hypertension: Yes - PULMONARY Hx Respiratory Disorders: No - NEUROLOGICAL Hx Neurological Disorder: No - RENAL Hx Chronic Kidney Disease: No - ENDOCRINE/METABOLIC Hx Endocrine Disorders: No - HEMATOLOGICAL/ONCOLOGICAL Other/Comment: Myelofibrosis - INTEGUMENTARY Hx Dermatological Problems: No - MUSCULOSKELETAL/RHEUMATOLOGICAL Hx Arthritis: Yes - GASTROINTESTINAL Hx Gastrointestinal Disorders: No - GENITOURINARY/GYNECOLOGICAL Hx Genitourinary Disorders: No - PSYCHIATRIC Hx Substance Use: No - SURGICAL HISTORY Hx Surgeries: No - ANESTHESIA Hx Anesthesia: No Meds Allergies/Adverse Reactions: Allergies Allergy/AdvReac Type Severity Reaction Status Date / Time No Known Allergies Allergy Verified 04/23/18 07:41 - Medications Medications: Current Medications Atenolol (Tenormin) 100 mg PO DAILY [facility] Last Admin: 04/24/18 11:15 Dose: 100 mg Famotidine (Pepcid) 20 mg IVP DAILY [facility] Last Admin: 04/24/18 11:14 Dose: 20 mg Sodium Chloride (Sodium Chloride 0.9%) 1,000 mls @ 100 mls/hr IV .Q10H NAN Last Admin: 04/24/18 05:46 Dose: Not Given Imipenem/Cilastatin Sodium 500 (mg/ Sodium Chloride) 100 mls @ 100 mls/hr IVPB Q8 NAN PRN Reason: Protocol Last Admin: 04/24/18 13:46 Dose: 100 mls/hr Morphine Sulfate (Morphine) 2 mg IVP Q6H PRN PRN Reason: Pain Last Admin: 04/24/18 17:18 Dose: 2 mg Ondansetron HCl (Zofran Inj) 4 mg IVP Q6 PRN PRN Reason: Nausea/Vomiting Last Admin: 04/24/18 12:32 Dose: 4 mg Pneumococcal Polyvalent Vaccine (Pneumovax 23 Vaccine) 0.5 ml IM .ONCE ONE Stop: 04/26/18 08:01 Physical Exam - Constitutional Appears: Non-toxic, Chronically Ill - Head Exam Head Exam: NORMOCEPHALIC - Eye Exam Eye Exam: absent: Scleral icterus - ENT Exam ENT Exam: Mucous Membranes Dry, Normal External Ear Exam - Neck Exam Neck exam: Negative for: Lymphadenopathy - Respiratory Exam Respiratory Exam: Decreased Breath Sounds - Cardiovascular Exam Cardiovascular Exam: REGULAR RHYTHM, +S1, +S2 - GI/Abdominal Exam GI & Abdominal Exam: Diminished Bowel Sounds, Soft. absent: Tenderness - Rectal Exam Rectal Exam: Deferred - Exam Exam: NORMAL INSPECTION - Extremities Exam Extremities exam: Positive for: pedal pulses present. Negative for: calf tenderness, pedal edema, tenderness - Back Exam Back exam: absent: CVA tenderness (L), CVA tenderness (R), paraspinal tenderness - Neurological Exam Neurological exam: Alert, CN II-XII Intact, Oriented x3, Reflexes Normal - Psychiatric Exam Psychiatric exam: Normal Affect, Normal Mood - Skin Skin Exam: Dry, Intact Results - Vital Signs Recent Vital Signs: Last Vital Signs Temp 100.7 F H 04/24/18 16:00 Pulse 83 04/24/18 16:00 Resp 20 04/24/18 16:00 BP 143/84 04/24/18 16:00 Pulse Ox 96 04/24/18 16:00 - Labs Result Diagrams: 04/24/18 07:31 04/24/18 07:31 Labs: Laboratory Results - last 24 hr 09/01/0304/24/18 04/24/18 22:59 07:31 07:31 WBC 27.6 H RBC 3.46 L Hgb 10.1 L Hct 30.7 L MCV 88.6 MCH 29.2 MCHC 32.9 L RDW 18.3 H Plt Count 88 L D MPV 11.4 Neut % (Auto) 84.8 H Lymph % (Auto) 3.3 L [place] % (Auto) 8.5 Eos % (Auto) 1.9 Baso % (Auto) 1.5 Neut # (Auto) 23.4 H Lymph # (Auto) 0.9 L [place] # (Auto) 2.4 H Eos # (Auto) 0.5 Baso # (Auto) 0.4 H Neutrophils % (Manual) 80 H Band Neutrophils % 4 H Lymphocytes % (Manual) 4 L Monocytes % (Manual) 8 Myelocytes % 4 H Nucleated RBC % 1 H Platelet Estimate Decreased L Large Platelets Present Hypochromasia (manual) Slight Poikilocytosis (manual Slight Anisocytosis (manual) Slight Macrocytosis (manual) Slight Tear Drop Cells Slight Ovalocytes Slight PT 14.2 H INR 1.3 APTT 33 Sodium 139 Potassium 4.9 Chloride 111 H Carbon Dioxide 18 L Anion Gap 15 BUN 36 H Creatinine 2.0 H Est GFR ( Amer) 30 Est GFR (Non-Af Amer) 25 Random Glucose 111 H Calcium 8.0 L Phosphorus 3.7 Magnesium 1.6 Total Bilirubin 0.5 AST 11 L ALT 23 Alkaline Phosphatase 42 Total Protein 6.3 Albumin 3.5 D Globulin 2.9 Albumin/Globulin Ratio 1.2 Assessment & Plan (1) Leucocytosis Status: Acute (2) Pyelonephritis due to Escherichia coli Status: Acute (3) UTI (urinary tract infection) Status: Acute - Assessment and Plan (Free Text) Assessment: failed out pt IV rx for Pyelo cultures from [facility] [place] not available cont merrem may need 3 weeks IV rx consider eval
--- NOTE | 2018-04-24 20:38 | CP.PCM.CON ---
History of Present Illness - History of Present Illness History of Present Illness: INFECTIOUS DISEASE CONSULTATION- REQUESTED BY DR EGAN LAST NIGHT EMPRICI ORDERS GIVEN VIA PMD JANY PATTERSON MD, FACP 3T [id number] 04/24/2018 CHART REVIEWED PT EXAMINED CASE DISCUSSED Chief complaint: Right flank pain HPI: 67-year-old female with a history of hypertension, myelofibrosis, chronic leukocytosis on treatment for myelofibrosis by oncologist, C/C: came to the emergency room with right flank pain. Patient over the course of 6 weeks was complaining of frequent episodes of urinary tract infection, hospitalized one time, AT [facility] [place]. She was also taking multiple medications. 6 weeks ago patient was seen by oncologist, in the office patient had a urinary analysis, showing evidence of E. coli, and was given ciprofloxacin. At that time the organism was insensitive. As the symptoms did not improve patient, THE PATIENT went to the hospital, AT [facility], WHERE she stayed there for 5 days, and IV antibioticS ADMINISTERED, at that time SHE had a CAT scan of the abdomen and pelvis. Patient was sent home with p.o. antibioticS AND again SHE NOTED THAT SHE had another episode of A urinary TRACT infection, and was prescribed Macrodantin; THE Patient came to the emergency room, HERE AT with the sudden onset of worsening right flank pain, associate with the nausea and vomiting. In the emergency room patient was admitted because of the suspected pyelonephritis. Now patient is still having some pain in the right flank, received morphine, WITH some improvement noted. No burning urination noted, no blood in the urine. Patient has no fever or chills. Past medical history: Myelofibrosis. Hypertension. Allergies no known drug allergy Personal history: Non-smoker, nonalcoholic, WITH A REASONABLE functional capacity. Family history noncontributory Review of system: Patient has no headache, no visual symptoms no chest pain or shortness of breath, occasional shaking noted, right flank pain on and off noted, suprapubic pain also noted On examination: Vital signs are stable. Afebrile. But low-grade temperature noted. Chest good air entry bilaterally regular heart sound, abdomen nontender, but the right flank tenderness noted, and suprapubic minimal tenderness noted. Patient's labs reviewed Elevated WBC noted, associated with the bands-47,00 WITH 14% BANDS OR SO! CAT scan of the abdomen showing evidence of changes in the liver. Also there is a hydronephrosis mild to moderate. And hydroureter. Involving the right side. Peripheral fat stranding noted Assessment: 67-year-old female came to the emergency room with acute pyelonephritis likely, and urinary tract infection. Possible radiolucent stone obstructing the right hydroureter. Also possible stricture cannot be ruled out. Recurrent urinary tract infection, not resolved with the medications now. In my opinion patient may need intervention. AN INFECTIOUS DISEASE CONSULTATION REQUESTED DUE TO EXTREME LEUKOCYTOSIS AND BANDEMIA, THAT FAILED PREVIOUS HOSPITALIZATION AND OUTPTATIENT TREATMENTS! Primaxin 500MG IV intravenous Q 8 HOURS FOR 24 HOURS GIVEN, PRESENTLY CHANGED TO 500MG IVPB Q 12HRS, IV fluidS and will follow the patient. Past Patient History - Infectious Disease Hx of Infectious Diseases: None - Past Medical History & Family History Past Medical History?: Yes - Past Social History Smoking Status: Never Smoked - CARDIAC Hx Hypertension: Yes - PULMONARY Hx Respiratory Disorders: No - NEUROLOGICAL Hx Neurological Disorder: No - RENAL Hx Chronic Kidney Disease: No - ENDOCRINE/METABOLIC Hx Endocrine Disorders: No - HEMATOLOGICAL/ONCOLOGICAL Other/Comment: Myelofibrosis - INTEGUMENTARY Hx Dermatological Problems: No - MUSCULOSKELETAL/RHEUMATOLOGICAL Hx Arthritis: Yes - GASTROINTESTINAL Hx Gastrointestinal Disorders: No - GENITOURINARY/GYNECOLOGICAL Hx Genitourinary Disorders: No - PSYCHIATRIC Hx Substance Use: No - SURGICAL HISTORY Hx Surgeries: No - ANESTHESIA Hx Anesthesia: No Meds Allergies/Adverse Reactions: Allergies Allergy/AdvReac Type Severity Reaction Status Date / Time No Known Allergies Allergy Verified 04/23/18 07:41 - Medications Medications: Current Medications Atenolol (Tenormin) 100 mg PO DAILY NAN Famotidine (Pepcid) 20 mg IVP DAILY [facility] Sodium Chloride (Sodium Chloride 0.9%) 1,000 mls @ 100 mls/hr IV .Q10H NAN Last Admin: 04/23/18 09:13 Dose: 100 mls/hr Ceftriaxone Sodium 1 gm/ (Sodium Chloride) 100 mls @ 100 mls/hr IVPB DAILY NAN PRN Reason: Protocol Imipenem/Cilastatin Sodium 500 (mg/ Sodium Chloride) 100 mls @ 100 mls/hr IVPB Q8 NAN PRN Reason: Protocol Last Admin: 04/23/18 22:17 Dose: 100 mls/hr Morphine Sulfate (Morphine) 2 mg IVP Q6H PRN PRN Reason: Pain Last Admin: 04/23/18 17:32 Dose: 2 mg Pneumococcal Polyvalent Vaccine (Pneumovax 23 Vaccine) 0.5 ml IM .ONCE ONE Stop: 04/26/18 08:01 Results - Vital Signs Recent Vital Signs: Last Vital Signs Temp 97.9 F 04/23/18 16:00 Pulse 67 04/23/18 16:00 Resp 20 04/23/18 16:00 BP 148/79 04/23/18 16:00 Pulse Ox 98 04/23/18 20:26 - Labs Result Diagrams: 04/24/18 07:31 04/24/18 07:31 Labs: Laboratory Results - last 24 hr 04/23/18 04/23/18 04/23/18 09:06 09:06 10:03 WBC 46.0 H* RBC 3.86 Hgb 11.1 Hct 34.7 MCV 89.8 MCH 28.9 MCHC 32.2 L RDW 19.1 H Plt Count 120 L MPV 10.8 Neut % (Auto) 81.3 H Lymph % (Auto) 4.3 L [place] % (Auto) 8.8 Eos % (Auto) 2.5 Baso % (Auto) 3.1 H Neut # (Auto) 37.5 H Lymph # (Auto) 2.0 [place] # (Auto) 4.0 H Eos # (Auto) 1.1 H Baso # (Auto) 1.4 H Neutrophils % (Manual) 62 Band Neutrophils % 14 H* Lymphocytes % (Manual) 6 L Monocytes % (Manual) 12 H Eosinophils % (Manual) 3 Myelocytes % 3 H Nucleated RBC % 1 H Platelet Estimate Slightly decreased L Large Platelets Present Polychromasia Slight Hypochromasia (manual) Slight Poikilocytosis (manual Slight Anisocytosis (manual) Slight Microcytosis (manual) Slight Macrocytosis (manual) Slight Tear Drop Cells Slight Ovalocytes Slight Smear Path Review pO2 VBG pH VBG pCO2 VBG HCO3 VBG Total CO2 VBG O2 Sat (Calc) VBG Base Excess VBG Potassium Glucose Lactate Sodium 138 Potassium 3.6 Chloride 117 H Carbon Dioxide 15 L Anion Gap 10 BUN 36 H Creatinine 1.8 H Est GFR ( Amer) 34 Est GFR (Non-Af Amer) 28 Random Glucose 92 Calcium 6.2 L Total Bilirubin 0.4 AST 12 L ALT 22 Alkaline Phosphatase 33 L Total Protein 5.3 L Albumin 2.7 L Globulin 2.6 Albumin/Globulin Ratio 1.0 Lipase 128 Venous Blood Potassium Urine Color [place] Urine Clarity Hazy Urine pH 5.0 Ur Specific [place] 1.009 Urine Protein 2+ H Urine Glucose (UA) Normal Urine Ketones Negative Urine Blood 3+ H Urine Nitrate Positive H Urine Bilirubin Negative Urine Urobilinogen Normal Ur Leukocyte Esterase 1+ H Urine WBC (Auto) 97 H Urine RBC (Auto) 104 H Ur Squamous Epith Cells 3 Urine Bacteria Occ H 04/23/18 10:20 WBC RBC Hgb Hct MCV MCH MCHC RDW Plt Count MPV Neut % (Auto) Lymph % (Auto) [place] % (Auto) Eos % (Auto) Baso % (Auto) Neut # (Auto) Lymph # (Auto) [place] # (Auto) Eos # (Auto) Baso # (Auto) Neutrophils % (Manual) Band Neutrophils % Lymphocytes % (Manual) Monocytes % (Manual) Eosinophils % (Manual) Myelocytes % Nucleated RBC % Platelet Estimate Large Platelets Polychromasia Hypochromasia (manual) Poikilocytosis (manual Anisocytosis (manual) Microcytosis (manual) Macrocytosis (manual) Tear Drop Cells Ovalocytes Smear Path Review pO2 30 VBG pH 7.29 L VBG pCO2 42 VBG HCO3 18.8 VBG Total CO2 21.5 L VBG O2 Sat (Calc) 56.4 VBG Base Excess -6.1 L VBG Potassium 5.0 Glucose 106 H Lactate 1.0 Sodium 138.0 Potassium Chloride 109.0 H Carbon Dioxide Anion Gap BUN Creatinine Est GFR ( Amer) Est GFR (Non-Af Amer) Random Glucose Calcium Total Bilirubin AST ALT Alkaline Phosphatase Total Protein Albumin Globulin Albumin/Globulin Ratio Lipase Venous Blood Potassium 5.0 Urine Color Urine Clarity Urine pH Ur Specific [place] Urine Protein Urine Glucose (UA) Urine Ketones Urine Blood Urine Nitrate Urine Bilirubin Urine Urobilinogen Ur Leukocyte Esterase Urine WBC (Auto) Urine RBC (Auto) Ur Squamous Epith Cells Urine Bacteria Past Patient History - Infectious Disease Hx of Infectious Diseases: None - Past Medical History & Family History Past Medical History?: Yes - Past Social History Smoking Status: Never Smoked - CARDIAC Hx Hypertension: Yes - PULMONARY Hx Respiratory Disorders: No - NEUROLOGICAL Hx Neurological Disorder: No - RENAL Hx Chronic Kidney Disease: No - ENDOCRINE/METABOLIC Hx Endocrine Disorders: No - HEMATOLOGICAL/ONCOLOGICAL Other/Comment: Myelofibrosis - INTEGUMENTARY Hx Dermatological Problems: No - MUSCULOSKELETAL/RHEUMATOLOGICAL Hx Arthritis: Yes - GASTROINTESTINAL Hx Gastrointestinal Disorders: No - GENITOURINARY/GYNECOLOGICAL Hx Genitourinary Disorders: No - PSYCHIATRIC Hx Substance Use: No - SURGICAL HISTORY Hx Surgeries: No - ANESTHESIA Hx Anesthesia: No Meds Allergies/Adverse Reactions: Allergies Allergy/AdvReac Type Severity Reaction Status Date / Time No Known Allergies Allergy Verified 04/23/18 07:41 - Medications Medications: Current Medications Atenolol (Tenormin) 100 mg PO DAILY [facility] Last Admin: 04/24/18 11:15 Dose: 100 mg Famotidine (Pepcid) 20 mg IVP DAILY [facility] Last Admin: 04/24/18 11:14 Dose: 20 mg Sodium Chloride (Sodium Chloride 0.9%) 1,000 mls @ 100 mls/hr IV .Q10H [facility] Last Admin: 04/24/18 05:46 Dose: Not Given Imipenem/Cilastatin Sodium 500 (mg/ Sodium Chloride) 100 mls @ 100 mls/hr IVPB Q12H NAN PRN Reason: Protocol Morphine Sulfate (Morphine) 2 mg IVP Q6H PRN PRN Reason: Pain Last Admin: 04/24/18 17:18 Dose: 2 mg Ondansetron HCl (Zofran Inj) 4 mg IVP Q6 PRN PRN Reason: Nausea/Vomiting Last Admin: 04/24/18 12:32 Dose: 4 mg Pneumococcal Polyvalent Vaccine (Pneumovax 23 Vaccine) 0.5 ml IM .ONCE ONE Stop: 04/26/18 08:01 Results - Vital Signs Recent Vital Signs: Last Vital Signs Temp 100.7 F H 04/24/18 16:00 Pulse 83 04/24/18 16:00 Resp 20 04/24/18 16:00 BP 143/84 04/24/18 16:00 Pulse Ox 96 04/24/18 16:00 - Labs Result Diagrams: 04/24/18 07:31 04/24/18 07:31 Labs: Laboratory Results - last 24 hr 04/23/18 04/24/18 04/24/18 22:59 07:31 07:31 WBC 27.6 H RBC 3.46 L Hgb 10.1 L Hct 30.7 L MCV 88.6 MCH 29.2 MCHC 32.9 L RDW 18.3 H Plt Count 88 L D MPV 11.4 Neut % (Auto) 84.8 H Lymph % (Auto) 3.3 L [place] % (Auto) 8.5 Eos % (Auto) 1.9 Baso % (Auto) 1.5 Neut # (Auto) 23.4 H Lymph # (Auto) 0.9 L [place] # (Auto) 2.4 H Eos # (Auto) 0.5 Baso # (Auto) 0.4 H Neutrophils % (Manual) 80 H Band Neutrophils % 4 H Lymphocytes % (Manual) 4 L Monocytes % (Manual) 8 Myelocytes % 4 H Nucleated RBC % 1 H Platelet Estimate Decreased L Large Platelets Present Hypochromasia (manual) Slight Poikilocytosis (manual Slight Anisocytosis (manual) Slight Macrocytosis (manual) Slight Tear Drop Cells Slight Ovalocytes Slight PT 14.2 H INR 1.3 APTT 33 Sodium 139 Potassium 4.9 Chloride 111 H Carbon Dioxide 18 L Anion Gap 15 BUN 36 H Creatinine 2.0 H Est GFR ( Amer) 30 Est GFR (Non-Af Amer) 25 Random Glucose 111 H Calcium 8.0 L Phosphorus 3.7 Magnesium 1.6 Total Bilirubin 0.5 AST 11 L ALT 23 Alkaline Phosphatase 42 Total Protein 6.3 Albumin 3.5 D Globulin 2.9 Albumin/Globulin Ratio 1.2
[2018-04-25 08:17] LABS: BASO # 0.2 K/uL (0.0-0.2); BASO % 0.9 % (0.0-2.0); EOS # 0.4 K/uL (0.0-0.7); EOS % 1.9 % (0.0-4.0); HEMOGLOBIN 8.9 g/dL (11.0-16.0); LYMPH # 0.5 K/uL (1.0-4.3); LYMPH % 2.4 % (20.0-40.0); MEAN CELL VOLUME 89.7 fL (81.0-99.0); MEAN CORPUSCULAR HEMOGLOBIN 29.4 pg (27.0-31.0); MEAN CORPUSCULAR HGB CONC 32.8 g/dL (33.0-37.0); MEAN PLATELET VOLUME 11.5 fL (7.2-11.7); MONO # 2.5 K/uL (0.0-0.8); MONO % 11.1 % (0.0-10.0); NEUT # 18.6 K/uL (1.8-7.0); NEUT % 83.7 % (50.0-75.0); NRBC % 0.1 % (0.0-2.0); RBC 3.02 Mil/uL (3.80-5.20); RED CELL DISTRIBUTION WIDTH 18.8 % (11.5-14.5); WHITE BLOOD COUNT 22.3 K/uL (4.8-10.8)
[2018-04-25 08:18] LABS: PLATELET COUNT 59 K/uL (130-400)
[2018-04-25 08:24] LABS: FOLATE 10.4 ng/mL
[2018-04-25 09:07] LABS: BANDS 4 % (0-2); EOSINOPHIL 2 % (0-4); LYMPHOCYTE 2 % (20-40); MONOCYTE 10 % (0-10); MYELOCYTE 3 % (0-0); NEUTROPHIL 79 % (50-75); NUCLEATED RED BLOOD CELL 1 % (0-0); TOTAL CELLS COUNTED 100
[2018-04-25 09:08] LABS: ANISOCYTOSIS SLIGHT; HYPOCHROMIC SLIGHT; OVALOCYTES SLIGHT; PLATELET ESTIMATE DECREASED (NORMAL); POLYCHROMIC SLIGHT; TEARDROP CELLS SLIGHT
--- NOTE | 2018-04-25 09:42 | CP.PCM.PN ---
Subjective - Date & Time of Evaluation Date of Evaluation: 04/25/18 Time of Evaluation: 08:30 - Subjective Subjective: clinically same Objective - Vital Signs/Intake and Output Vital Signs (last 24 hours): Temp Pulse Resp BP Pulse Ox 100.6 F H 89 20 108/63 97 04/25/18 00:00 04/25/18 00:00 04/25/18 00:00 04/25/18 00:00 04/25/18 09:40 Intake and Output: 04/25/18 04/25/18 06:59 18:59 Intake Total 1000 Balance 1000 - Medications Medications: Current Medications Atenolol (Tenormin) 100 mg PO DAILY [facility] Last Admin: 04/24/18 11:15 Dose: 100 mg Famotidine (Pepcid) 20 mg IVP DAILY [facility] Last Admin: 04/24/18 11:14 Dose: 20 mg Sodium Chloride (Sodium Chloride 0.9%) 1,000 mls @ 100 mls/hr IV .Q10H [facility] Last Admin: 04/24/18 15:15 Dose: Not Given Imipenem/Cilastatin Sodium 500 (mg/ Sodium Chloride) 100 mls @ 100 mls/hr IVPB Q12H NAN PRN Reason: Protocol Last Admin: 04/25/18 08:40 Dose: 100 mls/hr Morphine Sulfate (Morphine) 2 mg IVP Q6H PRN PRN Reason: Pain Last Admin: 04/24/18 17:18 Dose: 2 mg Ondansetron HCl (Zofran Inj) 4 mg IVP Q6 PRN PRN Reason: Nausea/Vomiting Last Admin: 04/24/18 12:32 Dose: 4 mg Pneumococcal Polyvalent Vaccine (Pneumovax 23 Vaccine) 0.5 ml IM .ONCE ONE Stop: 04/26/18 08:01 - Labs Labs: 04/25/18 08:02 PT 14.2 SECONDS (9.7-12.2) H 04/23/18 22:59 INR 1.3 04/23/18 22:59 APTT 33 SECONDS (21-34) 04/23/18 22:59 - Constitutional Appears: Well - Head Exam Head Exam: ATRAUMATIC, NORMAL INSPECTION, NORMOCEPHALIC - Eye Exam Eye Exam: EOMI, Normal appearance, PERRL Pupil Exam: NORMAL ACCOMODATION, PERRL - ENT Exam ENT Exam: Mucous Membranes Moist, Normal Exam - Neck Exam Neck Exam: Full ROM, Normal Inspection. absent: Lymphadenopathy - Respiratory Exam Respiratory Exam: Decreased Breath Sounds - Cardiovascular Exam Cardiovascular Exam: REGULAR RHYTHM, +S1, +S2 - GI/Abdominal Exam GI & Abdominal Exam: Soft, Diminished Bowel Sounds - Rectal Exam Rectal Exam: Deferred
[2018-04-25 09:43] LABS: ALBUMIN 2.8 g/dL (3.5-5.0); CALCIUM 7.4 mg/dl (8.6-10.4)
[2018-04-25] MEDS ORDERED: Propofol 10 mg/ml Inj (20 ML) ONE (13:12)
[2018-04-25] MEDS ORDERED: Midazolam 2 MG/2 ML VIAL ONE (13:13)
[2018-04-25] MEDS ORDERED: Lidocaine 2% Jelly (Uro-Jet) ONE (13:27)
[2018-04-25] MEDS ORDERED: Iohexol 240 (50 ml) ONE (13:27)
[2018-04-25] MEDS: Sodium Chloride 0.9% 1,000 ML IV SCH (14:21)
--- NOTE | 2018-04-25 14:23 | CP.PCM.CON ---
Past Patient History - Infectious Disease Hx of Infectious Diseases: None - Past Medical History & Family History Past Medical History?: Yes - Past Social History Smoking Status: Never Smoked - CARDIAC Hx Hypertension: Yes - PULMONARY Hx Respiratory Disorders: No - NEUROLOGICAL Hx Neurological Disorder: No - HEENT Hx HEENT Problems: No - RENAL Hx Chronic Kidney Disease: No - ENDOCRINE/METABOLIC Hx Endocrine Disorders: No - HEMATOLOGICAL/ONCOLOGICAL Other/Comment: Myelofibrosis - INTEGUMENTARY Hx Dermatological Problems: No - MUSCULOSKELETAL/RHEUMATOLOGICAL Hx Arthritis: Yes - GASTROINTESTINAL Hx Gastrointestinal Disorders: No - GENITOURINARY/GYNECOLOGICAL Hx Genitourinary Disorders: No - PSYCHIATRIC Hx Substance Use: No - SURGICAL HISTORY Hx Surgeries: No - ANESTHESIA Hx Anesthesia: No Meds Allergies/Adverse Reactions: Allergies Allergy/AdvReac Type Severity Reaction Status Date / Time No Known Allergies Allergy Verified 04/23/18 07:41 - Medications Medications: Current Medications Atenolol (Tenormin) 100 mg PO DAILY [facility] Last Admin: 04/25/18 11:02 Dose: 100 mg Famotidine (Pepcid) 20 mg IVP DAILY [facility] Last Admin: 04/25/18 11:02 Dose: 20 mg Sodium Chloride (Sodium Chloride 0.9%) 1,000 mls @ 100 mls/hr IV .Q10H [facility] Last Admin: 04/25/18 14:21 Dose: Not Given Imipenem/Cilastatin Sodium 500 (mg/ Sodium Chloride) 100 mls @ 100 mls/hr IVPB Q12H [facility] PRN Reason: Protocol Last Admin: 04/25/18 08:40 Dose: 100 mls/hr Morphine Sulfate (Morphine) 2 mg IVP Q6H PRN PRN Reason: Pain Last Admin: 04/24/18 17:18 Dose: 2 mg Ondansetron HCl (Zofran Inj) 4 mg IVP Q6 PRN PRN Reason: Nausea/Vomiting Last Admin: 04/24/18 12:32 Dose: 4 mg Pneumococcal Polyvalent Vaccine (Pneumovax 23 Vaccine) 0.5 ml IM .ONCE ONE Stop: 04/26/18 08:01 Results - Vital Signs Recent Vital Signs: Last Vital Signs Temp 100.6 F H 04/25/18 00:00 Pulse 89 04/25/18 00:00 Resp 20 04/25/18 00:00 BP 108/63 04/25/18 00:00 Pulse Ox 97 04/25/18 11:01 - Labs Result Diagrams: 04/25/18 08:02 04/25/18 06:53 Labs: Laboratory Results - last 24 hr 04/25/18 04/25/18 04/25/18 06:53 06:53 08:02 WBC 22.3 H RBC 3.02 L Hgb 8.9 L Hct 27.0 L MCV 89.7 MCH 29.4 MCHC 32.8 L RDW 18.8 H Plt Count 59 L D MPV 11.5 Neut % (Auto) 83.7 H Lymph % (Auto) 2.4 L Mcclain % (Auto) 11.1 H Eos % (Auto) 1.9 Baso % (Auto) 0.9 Neut # (Auto) 18.6 H Lymph # (Auto) 0.5 L Mcclain # (Auto) 2.5 H Eos # (Auto) 0.4 Baso # (Auto) 0.2 Neutrophils % (Manual) 79 H Band Neutrophils % 4 H Lymphocytes % (Manual) 2 L Monocytes % (Manual) 10 Eosinophils % (Manual) 2 Myelocytes % 3 H Nucleated RBC % 1 H Platelet Estimate Decreased L Polychromasia Slight Hypochromasia (manual) Slight Anisocytosis (manual) Slight Tear Drop Cells Slight Ovalocytes Slight Retic Count 1.9 H Sodium 141 Potassium 4.4 Chloride 112 H Carbon Dioxide 19 L Anion Gap 15 BUN 34 H Creatinine 2.1 H Est GFR ( Amer) 28 Est GFR (Non-Af Amer) 23 Random Glucose 104 Calcium 7.4 L Phosphorus 3.3 Magnesium 1.4 L Ferritin 228.0 Total Bilirubin 0.4 AST 13 L ALT 17 Alkaline Phosphatase 36 L Total Protein 5.6 L Albumin 2.8 L Globulin 2.7 Albumin/Globulin Ratio 1.0 Vitamin B12 562 Folate 10.4 Assessment & Plan - Assessment and Plan (Free Text) Assessment: IMP: UTI, recurrent Hydronephrosis Full note tbd YS - Date & Time Date: 04/25/18 Time: 13:05
--- NOTE | 2018-04-25 14:25 | PCM.SURG1 ---
Surgeon's Initial Post Op Note - Surgeon's Notes Surgeon: Mariela Irvin Car Bracer: none Type of Anesthesia: IV Sedation Pre-Operative Diagnosis: R Hydronephrosis. UTI Operative Findings: same, cystitis, abnormal bladder mucos Post-Operative Diagnosis: same Operation Performed: cysto, R trg pyelogram,. insertion of R ureteral stent. Bladdr bx and fulg. EUA Specimen/Specimens Removed: urine. bladder bx Estimated Blood Loss: EBL {In ML}: 0 Blood Products Given: N/A Post-Op Condition: Good Date of Surgery/Procedure: 04/25/18 Time of Surgery/Procedure: 14:25
[2018-04-25] MEDS ORDERED: Lactated Ringer's 1,000 ML IV SCH (14:30)
--- NOTE | 2018-04-25 14:37 | RAD ---
Date of service: 04/25/2018 HISTORY: RIGHT HYDRONEPHROSIS COMPARISON: No prior. 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 Normal abdominal bowel gas pattern. No hepatic or splenic enlargement. No masses are identified. Peripherally calcified gallstone seen in the right upper quadrant corresponding to a gallstone identified on CT examination of the previous day. BONES: Normal. OTHER FINDINGS: None. IMPRESSION: No active disease.
--- NOTE | 2018-04-25 14:38 | RAD ---
Date of service: 04/25/2018 PROCEDURE: Intraoperative fluoroscopy HISTORY: RIGHT HYDRONEPHROSIS COMPARISON: Not available TECHNIQUE: Intraoperative fluoroscopy was provided for retrograde pyelo ureteral atrophy and right ureteral stent insertion. Total time of fluoroscopy was 34.2 seconds. Cumulative dose was 1.44 mGy meters squared. FINDINGS: Multiple fluoroscopic spot films are submitted. IMPRESSION: Fluoroscopy provided.
[2018-04-25] MEDS ORDERED: HYDROmorphone 0.5 mg/0.5 ml ISec IVP PRN (14:40)
--- NOTE | 2018-04-25 19:16 | CP.PCM.PN ---
Subjective - Date & Time of Evaluation Date of Evaluation: 04/25/18 Time of Evaluation: 19:11 - Subjective Subjective: INFECTIOUS DISEASE PROGRESS NOTES JANY PATTERSON MD, FACP 3T [id number] 04/25/2018 CHART REVIEWED PT EXAMINED CASE DISCUSSED, SON IS PRESENT AGAIN, LIKE LAST NIGHT PRESENTLY S/P UROLOGICAL PROCEDURE-SEE BELOW: s Surgeon: Mariela Irvin Stock Analyst: none Type of Anesthesia: IV Sedation Pre-Operative Diagnosis: R Hydronephrosis. UTI Operative Findings: same, cystitis, abnormal bladder mucos Post-Operative Diagnosis: same Operation Performed: cysto, R trg pyelogram,. insertion of R ureteral stent. Bladdr bx and fulg. EUA Specimen/Specimens Removed: urine. bladder bx Estimated Blood Loss: EBL {In ML}: 0 Blood Products Given: N/A Post-Op Condition: Good Date of Surgery/Procedure: 04/25/18 Time of Surgery/Procedure: 14:25 PTS WBC IS DOWN TO 22,000 BUT WE MUST WATCH HER RENAL FUNCTION CAREFULLY. THIS WAS APPARENTLY ALREADY COMPROMISED BEFORE THIS ADMISSION. C/S ARE NOT BACK YET SO FAR ALL NEGATIVE, BUT HER ELEVATED WBC IS COMING DOWN TO HER MYLELOFIBROSIS BASELINE. CHECK HER LAP. LUNGS DECREASE BREATH SOUTHS BILATERALLY COR RR ABD SOFT PAIN HOPEFULLY WILL RESPOND TO TREATMENT PLAN. TO FOLLOW WITH SHUKLA NEEDED CAREFULYY. JANY PATTERSON MD, FACP Objective - Vital Signs/Intake and Output Vital Signs (last 24 hours): Temp Pulse Resp BP Pulse Ox 99.8 F H 81 21 122/53 L 96 04/25/18 15:15 04/25/18 15:15 04/25/18 15:15 04/25/18 15:15 04/25/18 15:15 Intake and Output: 04/25/18 04/26/18 18:59 06:59 Intake Total 800 Balance 800 - Medications Medications: Current Medications Atenolol (Tenormin) 100 mg PO DAILY [facility] Last Admin: 04/25/18 11:02 Dose: 100 mg Famotidine (Pepcid) 20 mg IVP DAILY [facility] Last Admin: 04/25/18 11:02 Dose: 20 mg Sodium Chloride (Sodium Chloride 0.9%) 1,000 mls @ 100 mls/hr IV .Q10H [facility] Last Admin: 04/25/18 14:21 Dose: Not Given Imipenem/Cilastatin Sodium 500 (mg/ Sodium Chloride) 100 mls @ 100 mls/hr IVPB Q12H [facility] PRN Reason: Protocol Last Admin: 04/25/18 08:40 Dose: 100 mls/hr Lactated Ringer's (Lactated Ringer's) 1,000 mls @ 100 mls/hr IV .Q10H [facility] Morphine Sulfate (Morphine) 2 mg IVP Q6H PRN PRN Reason: Pain Last Admin: 04/24/18 17:18 Dose: 2 mg Ondansetron HCl (Zofran Inj) 4 mg IVP Q6 PRN PRN Reason: Nausea/Vomiting Last Admin: 04/24/18 12:32 Dose: 4 mg Pneumococcal Polyvalent Vaccine (Pneumovax 23 Vaccine) 0.5 ml IM .ONCE ONE Stop: 04/26/18 08:01 - Labs Labs: 04/25/18 08:02 04/25/18 06:53 PT 14.2 SECONDS (9.7-12.2) H 04/23/18 22:59 INR 1.3 04/23/18 22:59 APTT 33 SECONDS (21-34) 04/23/18 22:59
[2018-04-25 20:30] LABS: BASO # 0.1 K/uL (0.0-0.2); BASO % 0.4 % (0.0-2.0); EOS # 0.2 K/uL (0.0-0.7); EOS % 0.8 % (0.0-4.0); HEMOGLOBIN 9.3 g/dL (11.0-16.0); LYMPH # 0.6 K/uL (1.0-4.3); LYMPH % 2.5 % (20.0-40.0); MEAN CELL VOLUME 89.1 fL (81.0-99.0); MEAN CORPUSCULAR HEMOGLOBIN 29.8 pg (27.0-31.0); MEAN CORPUSCULAR HGB CONC 33.5 g/dL (33.0-37.0); MONO # 3.2 K/uL (0.0-0.8); MONO % 13.7 % (0.0-10.0); NEUT # 19.1 K/uL (1.8-7.0); NEUT % 82.6 % (50.0-75.0); NRBC % 0.2 % (0.0-2.0); PLATELET COUNT 59 K/uL (130-400); RBC 3.13 Mil/uL (3.80-5.20); RED CELL DISTRIBUTION WIDTH 18.5 % (11.5-14.5); WHITE BLOOD COUNT 23.2 K/uL (4.8-10.8)
[2018-04-25 20:35] LABS: ALB/GLOB RATIO 1.2 (1.0-2.1); ALBUMIN 3.1 g/dL (3.5-5.0); CALCIUM 7.7 mg/dl (8.6-10.4)
[2018-04-25 21:53] LABS: ANISOCYTOSIS MODERATE; BANDS 6 % (0-2); EOSINOPHIL 1 % (0-4); HYPOCHROMIC SLIGHT; LYMPHOCYTE 1 % (20-40); MONOCYTE 9 % (0-10); MYELOCYTE 3 % (0-0); NEUTROPHIL 80 % (50-75); PLATELET ESTIMATE DECREASED (NORMAL); TOTAL CELLS COUNTED 100
[2018-04-25 21:54] LABS: OVALOCYTES SLIGHT
[2018-04-26] MEDS ORDERED: Pneumococcal 23-Valent Vaccine IM ONE (08:00)
--- NOTE | 2018-04-26 08:55 | CP.PCM.PN ---
Subjective - Date & Time of Evaluation Date of Evaluation: 04/26/18 Time of Evaluation: 08:55 - Subjective Subjective: Patient is morning feeling better. But she have a mild exertional dyspnea. Evening at 8:30 PM according to the nurses there was some discomfort in breathing. I spoke to the family. Patient was having increasing shortness of breath. X-ray repeat showing evidence of pulmonary edema. After that I discussed with the ICU team. I advised the patient to be transferred to the intensive care unit for close monitoring. Patient received intravenous Lasix,. I also spoke to the ham passer. I also spoke to the sustainable communities designer. Repeat sonogram also today showing evidence of portal venous congestion. And also possibility of the splenic vein enlargement, and possibility of questionable thrombus there. Splenomegaly. Liver cirrhotic changes. I spoke to the oncologist to, given the low platelet count, he wants to wait until tomorrow to decide whether to give anticoagulation. But the patient's daughter also very concerned about giving the heparin drip at this time. We'll continue to monitor Objective - Vital Signs/Intake and Output Vital Signs (last 24 hours): Temp Pulse Resp BP Pulse Ox 99 F 92 H 20 120/65 95 04/26/18 05:30 04/26/18 05:30 04/26/18 05:30 04/26/18 05:30 04/26/18 05:30 Intake and Output: 04/26/18 04/26/18 06:59 18:59 Intake Total 1860 Balance 1860 - Medications Medications: Current Medications Atenolol (Tenormin) 100 mg PO DAILY [facility] Last Admin: 04/25/18 11:02 Dose: 100 mg Famotidine (Pepcid) 20 mg IVP DAILY [facility] Last Admin: 04/25/18 11:02 Dose: 20 mg Imipenem/Cilastatin Sodium 500 (mg/ Sodium Chloride) 100 mls @ 100 mls/hr IVPB Q12H [facility] PRN Reason: Protocol Last Admin: 04/26/18 08:33 Dose: 100 mls/hr Lactated Ringer's (Lactated Ringer's) 1,000 mls @ 50 mls/hr IV .Q20H [facility] Morphine Sulfate (Morphine) 2 mg IVP Q6H PRN PRN Reason: Pain Last Admin: 04/26/18 02:20 Dose: 2 mg Ondansetron HCl (Zofran Inj) 4 mg IVP Q6 PRN PRN Reason: Nausea/Vomiting Last Admin: 04/24/18 12:32 Dose: 4 mg Pneumococcal Polyvalent Vaccine (Pneumovax 23 Vaccine) 0.5 ml IM .ONCE ONE Stop: 04/27/18 08:31 - Labs Labs: 04/25/18 20:12 04/25/18 20:12 PT 14.2 SECONDS (9.7-12.2) H 04/23/18 22:59 INR 1.3 04/23/18 22:59 APTT 33 SECONDS (21-34) 04/23/18 22:59
[2018-04-26 09:37] LABS: BASO # 0.2 K/uL (0.0-0.2); EOS # 0.3 K/uL (0.0-0.7); EOS % 1.2 % (0.0-4.0); HEMOGLOBIN 9.2 g/dL (11.0-16.0); LYMPH # 0.5 K/uL (1.0-4.3); LYMPH % 1.9 % (20.0-40.0); MEAN CELL VOLUME 89.2 fL (81.0-99.0); MEAN CORPUSCULAR HEMOGLOBIN 29.3 pg (27.0-31.0); MEAN CORPUSCULAR HGB CONC 32.9 g/dL (33.0-37.0); MEAN PLATELET VOLUME 11.1 fL (7.2-11.7); MONO % 12.7 % (0.0-10.0); NEUT # 19.8 K/uL (1.8-7.0); NEUT % 83.2 % (50.0-75.0); NRBC % 0.1 % (0.0-2.0); PLATELET COUNT 48 K/uL (130-400); RBC 3.15 Mil/uL (3.80-5.20); RED CELL DISTRIBUTION WIDTH 18.9 % (11.5-14.5); WHITE BLOOD COUNT 23.8 K/uL (4.8-10.8)
[2018-04-26 09:51] LABS: CALCIUM 7.9 mg/dl (8.6-10.4)
[2018-04-26 10:29] LABS: BANDS 2 % (0-2); EOSINOPHIL 1 % (0-4); LYMPHOCYTE 2 % (20-40); METAMYELOCYTE 2 % (0-0); MONOCYTE 13 % (0-10); MYELOCYTE 1 % (0-0); NEUTROPHIL 79 % (50-75); TOTAL CELLS COUNTED 100
[2018-04-26 10:30] LABS: PLATELET ESTIMATE DECREASED (NORMAL)
[2018-04-26 10:31] LABS: ANISOCYTOSIS MODERATE; HYPOCHROMIC SLIGHT; OVALOCYTES SLIGHT; POIKILOCYTOSIS SLIGHT; POLYCHROMIC SLIGHT
[2018-04-26 10:32] LABS: LARGE PLATELETS PRESENT; TEARDROP CELLS SLIGHT
--- NOTE | 2018-04-26 11:38 | RAD ---
Chest x-ray single frontal view History: Fever. Comparison: 04/25/2018 Findings: Diffuse increased interstitial lung markings. Enlarged ectatic aorta. Cardiomegaly. Degenerative changes spine and shoulders. Rounded nodular density projecting over the right mid lung zone may represent confluence of shadows of ribs and vessels and scapula. Impression: Diffuse increased interstitial lung markings. Enlarged ectatic aorta. Cardiomegaly. Degenerative changes spine and shoulders. Rounded nodular density projecting over the right mid lung zone may represent confluence of shadows of ribs and vessels and scapula.
--- NOTE | 2018-04-26 13:47 | US ---
Abdominal ultrasound History: Cholelithiasis. Comparison: CT scan dated 04/24/2018 Technique: Real-time sonography was performed through the abdomen. Findings: Liver: Enlarged liver measuring 24.7 centimeters. Nodular and cirrhotic contour. Increased echogenicity of the hepatic parenchymal cortex suggestive for hepatic parenchymal disease versus fatty infiltration. Clinical correlation. Gallbladder: Cholelithiasis. Prominent calculus measures to 3.1 centimeters. Gallbladder wall thickness measures 2.6 millimeters. Negative sonographic Hidalgo's sign. Limited visualization of the pancreas. Common bile duct measures 6 millimeters, upper limits of normal. Spleen is markedly enlarged measuring up to 20 centimeters length. Limited visualization of the aorta and IVC. Right kidney: 9.3 x 4.6 x 4.1 centimeters. Increased echogenicity of the renal parenchymal cortex suggestive for medical renal disease. No calculi or hydronephrosis. Left kidney: 9.4 x 4.0 x 4.1 centimeters. Increased echogenicity of the renal parenchymal cortex suggestive for medical renal disease. No calculi or hydronephrosis. Study limited secondary to large patient body habitus. Normal splenic vein not well delineated on this study. Prominent varices noted surrounding the splenic vein. This raises concern for possible splenic vein thrombosis. Clinical correlation. Dilated portal vein with increased velocity noted in the portal vein. Portal vein flow appears turbulent. Prominent varices are noted at the level of the carrie hepatis. Small right pleural effusion. Impression: Markedly limited study. Normal splenic vein not well delineated on this study. Prominent varices noted surrounding the splenic vein. Clinical correlation. Dilated portal vein with increased velocity noted in the portal vein. Portal vein flow appears turbulent. Prominent varices are noted at the level of the carrie hepatis. Clinical correlation. Enlarged liver measuring 24.7 centimeters. Nodular and cirrhotic contour. Increased echogenicity of the hepatic parenchymal cortex suggestive for hepatic parenchymal disease versus fatty infiltration. Clinical correlation. Cholelithiasis. Gallbladder wall thickness measures 2.6 millimeters. Negative sonographic Hdialgo's sign. Spleen is markedly enlarged measuring up to 20 centimeters length. Increased echogenicity of the bilateral renal parenchymal cortices suggestive for medical renal disease. Small right pleural effusion. Pancreas not well visualized.
[2018-04-26] MEDS: Lactated Ringer's 1,000 ML IV SCH ×2 (15:27)
[2018-04-26] MEDS ORDERED: Magnesium Sulfate 1 gm in D5W 1 GM/100 ML BAG IVPB SCH (22:30)
[2018-04-26] MEDS ORDERED: Albuterol 0.083% Inhal Sol (2.5 mg/3 mL) UD INH STA (23:09)
--- NOTE | 2018-04-26 23:12 | CP.PCM.PN ---
Subjective - Date & Time of Evaluation Date of Evaluation: 04/26/18 Time of Evaluation: 07:45 - Subjective Subjective: clinically same Objective - Vital Signs/Intake and Output Vital Signs (last 24 hours): Temp Pulse Resp BP Pulse Ox 98.6 F 79 20 129/75 94 L 04/26/18 08:00 04/26/18 08:00 04/26/18 08:00 04/26/18 22:22 04/26/18 08:00 - Medications Medications: Current Medications Acetaminophen (Tylenol 325mg Tab) 650 mg PO Q6 PRN PRN Reason: Pain, Mild (1-3) Last Admin: 04/26/18 17:01 Dose: 650 mg Albuterol Sulfate (Albuterol 0.083% Inhal Elsi (2.5 Mg/3 Ml) Ud) 2.5 mg INH STAT STA Stop: 04/26/18 23:10 Famotidine (Pepcid) 20 mg IVP DAILY [facility] Last Admin: 04/26/18 09:09 Dose: 20 mg Furosemide (Lasix) 80 mg PO STAT STA Stop: 04/26/18 23:09 Imipenem/Cilastatin Sodium 500 (mg/ Sodium Chloride) 100 mls @ 100 mls/hr IVPB Q12H [facility] PRN Reason: Protocol Last Admin: 04/26/18 20:09 Dose: 100 mls/hr Ondansetron HCl (Zofran Inj) 4 mg IVP Q6 PRN PRN Reason: Nausea/Vomiting Last Admin: 04/24/18 12:32 Dose: 4 mg Pneumococcal Polyvalent Vaccine (Pneumovax 23 Vaccine) 0.5 ml IM .ONCE ONE Stop: 04/27/18 08:31 - Labs Labs: 04/26/18 09:33 04/26/18 09:33 PT 14.2 SECONDS (9.7-12.2) H 04/23/18 22:59 INR 1.3 04/23/18 22:59 APTT 33 SECONDS (21-34) 04/23/18 22:59 - Constitutional Appears: Well - Head Exam Head Exam: ATRAUMATIC, NORMAL INSPECTION, NORMOCEPHALIC - Eye Exam Eye Exam: EOMI, Normal appearance, PERRL Pupil Exam: NORMAL ACCOMODATION, PERRL - ENT Exam ENT Exam: Mucous Membranes Moist, Normal Exam - Neck Exam Neck Exam: Full ROM, Normal Inspection. absent: Lymphadenopathy - Respiratory Exam Respiratory Exam: Decreased Breath Sounds - Cardiovascular Exam Cardiovascular Exam: REGULAR RHYTHM, +S1, +S2 - GI/Abdominal Exam GI & Abdominal Exam: Soft, Diminished Bowel Sounds - Rectal Exam Rectal Exam: Deferred
--- NOTE | 2018-04-26 23:21 | CP.PCM.CON ---
History of Present Illness - History of Present Illness History of Present Illness: Attending: Clif Gutiérrez MD Urology: Dr Irvin ID: Dr Jackson Reason for Consult: Critical care management Chief Complaint: Shortness of Breath The patient was seen and examined on the [facility] floor 365-B with her daughter present HPI: The hx was obtained from Dr Gale and after review of the medical records. This is a 67 years old female with hx of Arthritis, HTN and Myelofibrosis with chronic Leukocytosis. She was admitted on 04/23/18 with right flank pain and failed out patient/Inpatient treatment for Pyelonephritis. Here at [facility] CAT scan of the Abdomen and pelvis showed right hydroureternephrosis with ureteral stricture.The patient underwent Ureteral stent insertion done by Dr Irvin on 04/25/18. The patient now complaints of significant SOB, no Chest pain, palpitation,, nausea nor vomiting PMH: HTN; Arthritis; Myelofibrosis; Chronic Leukocytosis secondary to Myelofibrosis. PSH: Right Ureteral stent inserted SH: No illegal drug use; No alcohol; never smoked FH: State: No known family History Allergies: NKDA Medication: Reviewed Review of Systems - Review of Systems Systems not reviewed;Unavailable: Respiratory Distress Review of Systems: Review of systems is limited as the patient is in severe SOB. - Constitutional Constitutional: absent: Headache, Lethargy - EENT Eyes: Requires Corrective Lenses. absent: Blurred Vision, Diplopia, Floaters Ears: absent: Decreased Hearing, Tinnitus Nose/Mouth/Throat: absent: Epistaxis, Nasal Congestion, Nasal Discharge - Cardiovascular Cardiovascular: Dyspnea. absent: Chest Pain, Claudication, Edema, Leg Edema - Respiratory Respiratory: Dyspnea. absent: Cough, Wheezing, Stridor Additional comments: Use of Accessory muscles of respirtion. - Gastrointestinal Gastrointestinal: absent: Constipation, Diarrhea Additional comments: Abdominal discomfort at the Epigastrium - Genitourinary Genitourinary: Dysuria. absent: Urinary Frequency - Musculoskeletal Musculoskeletal: Arthralgias, Back Pain. absent: Muscle Weakness - Integumentary Integumentary: absent: Pruritus, Rash, Skin Ulcer, Sores, Striae, Swelling - Neurological Neurological: absent: Confusion, Dizziness, Focal Weakness, Headaches - Psychiatric Psychiatric: Change in Appetite. absent: Anxiety, Depression, Panic Attacks - Endocrine Endocrine: absent: Polydipsia, Polyphagia, Polyuria - Hematologic/Lymphatic Hematologic: absent: Easy Bleeding, Easy Bruising Past Patient History - Infectious Disease Hx of Infectious Diseases: None - Past Medical History & Family History Past Medical History?: Yes - Past Social History Smoking Status: Never Smoked Chewing Tobacco Use: No Cigar Use: No Drugs: Denies Home Situation {Lives}: With Family - CARDIAC Hx Cardiac Disorders: No Hx Hypertension: Yes - PULMONARY Hx Respiratory Disorders: No - NEUROLOGICAL Hx Neurological Disorder: No - HEENT Hx HEENT Problems: No - RENAL Hx Chronic Kidney Disease: No - ENDOCRINE/METABOLIC Hx Endocrine Disorders: No - HEMATOLOGICAL/ONCOLOGICAL Hx Blood Disorders: No Other/Comment: Myelofibrosis - INTEGUMENTARY Hx Dermatological Problems: No - MUSCULOSKELETAL/RHEUMATOLOGICAL Hx Arthritis: Yes - GASTROINTESTINAL Hx Gastrointestinal Disorders: No - GENITOURINARY/GYNECOLOGICAL Hx Genitourinary Disorders: No - PSYCHIATRIC Hx Substance Use: No - SURGICAL HISTORY Hx Surgeries: No - ANESTHESIA Hx Anesthesia: No Meds Allergies/Adverse Reactions: Allergies Allergy/AdvReac Type Severity Reaction Status Date / Time No Known Allergies Allergy Verified 04/23/18 07:41 - Medications Medications: Current Medications Acetaminophen (Tylenol 325mg Tab) 650 mg PO Q6 PRN PRN Reason: Pain, Mild (1-3) Last Admin: 04/26/18 17:01 Dose: 650 mg Famotidine (Pepcid) 20 mg IVP DAILY [facility] Last Admin: 04/26/18 09:09 Dose: 20 mg Imipenem/Cilastatin Sodium 500 (mg/ Sodium Chloride) 100 mls @ 100 mls/hr IVPB Q12H [facility] PRN Reason: Protocol Last Admin: 04/26/18 20:09 Dose: 100 mls/hr Ondansetron HCl (Zofran Inj) 4 mg IVP Q6 PRN PRN Reason: Nausea/Vomiting Last Admin: 04/24/18 12:32 Dose: 4 mg Pneumococcal Polyvalent Vaccine (Pneumovax 23 Vaccine) 0.5 ml IM .ONCE ONE Stop: 04/27/18 08:31 Physical Exam - Constitutional Appears: In Acute Distress - Head Exam Head Exam: ATRAUMATIC, NORMAL INSPECTION - Eye Exam Eye Exam: EOMI, Normal appearance Pupil Exam: NORMAL ACCOMODATION, PERRL - ENT Exam ENT Exam: Mucous Membranes Moist, Normal Exam, Normal External Ear Exam - Neck Exam Neck exam: Positive for: Full Rom. Negative for: Lymphadenopathy - Respiratory Exam Additional comments: Inspiratory rales in both lung tang 2/3 up, no wheezing nor rhonchi. - Cardiovascular Exam Cardiovascular Exam: REGULAR RHYTHM, RRR, +S1, +S2. absent: Gallop, Rubs, +S4 - GI/Abdominal Exam Additional comments: Soft, Obese, decreased bowel sounds, mild tenderness at the epigastrium. - Rectal Exam Rectal Exam: Deferred - Extremities Exam Extremities exam: Positive for: full ROM, normal inspection. Negative for: calf tenderness, pedal edema - Back Exam Back exam: NORMAL INSPECTION - Neurological Exam Neurological exam: Alert, CN II-XII Intact, Oriented x3, Reflexes Normal - Psychiatric Exam Psychiatric exam: Normal Affect, Normal Mood - Skin Skin Exam: Erythema, Intact, Normal Color Results - Vital Signs Recent Vital Signs: Last Vital Signs Temp 98.6 F 04/26/18 08:00 Pulse 79 04/26/18 08:00 Resp 20 04/26/18 08:00 BP 129/75 04/26/18 22:22 Pulse Ox 94 L 04/26/18 08:00 - Labs Result Diagrams: 04/26/18 09:33 04/26/18 09:33 Labs: Laboratory Results - last 24 hr 04/26/18 04/26/18 09:33 09:33 WBC 23.8 H RBC 3.15 L Hgb 9.2 L Hct 28.1 L MCV 89.2 MCH 29.3 MCHC 32.9 L RDW 18.9 H Plt Count 48 L MPV 11.1 Neut % (Auto) 83.2 H Lymph % (Auto) 1.9 L Boyd % (Auto) 12.7 H Eos % (Auto) 1.2 Baso % (Auto) 1.0 Neut # (Auto) 19.8 H Lymph # (Auto) 0.5 L Boyd # (Auto) 3.0 H Eos # (Auto) 0.3 Baso # (Auto) 0.2 Neutrophils % (Manual) 79 H Band Neutrophils % 2 Lymphocytes % (Manual) 2 L Monocytes % (Manual) 13 H Eosinophils % (Manual) 1 Metamyelocytes % 2 H Myelocytes % 1 H Platelet Estimate Decreased L Large Platelets Present Polychromasia Slight Hypochromasia (manual) Slight Poikilocytosis (manual Slight Anisocytosis (manual) Moderate Tear Drop Cells Slight Ovalocytes Slight Sodium 139 Potassium 4.1 Chloride 110 H Carbon Dioxide 19 L Anion Gap 15 BUN 35 H Creatinine 2.1 H Est GFR ( Amer) 28 Est GFR (Non-Af Amer) 23 Random Glucose 125 H Calcium 7.9 L Phosphorus 3.5 Magnesium 1.5 L Total Bilirubin 0.4 AST 10 L ALT 23 Alkaline Phosphatase 37 L Total Protein 5.8 L Albumin 3.0 L Globulin 2.8 Albumin/Globulin Ratio 1.0 - Impressions Impression: NSR 83/min No sign of ischemia - Imaging and Cardiology Chest x-ray Status: Image reviewed by me Additional comment: Bilateral diffuse interstitial infiltrate with Cardiomegaly ECHO Status: Report reviewed by me Additional comment: 04/23/18 Normal LV Function EF 65-70% Trace Aortic Regurg Moderate pulmonary HTN ABG on 3L Additional comment: 04/26/18 pH 7.37// Assessment & Plan - Assessment and Plan (Free Text) Assessment: #. Volume overload with pulmonary congestion #. Pyelonephritis #. Hydroureternephrosis #. Myelofibrosis with Leukocytosis #. Thrombocytoisi #. Renal Failure Plan: 67 years old female with hx of Arthritis, HTN and Myelofibrosis with chronic Leukocytosis, admitted on 04/23/18 with right flank pain and diagnosis of Pyelonephritis and failed outpatient treatment. Here at [facility] CAT scan of the Abdomen/ pelvis showed right hydroureternephrosis with ureteral stricture. She now complaints of severe SOB. #. Volume overload with Pulmonary Edema and SOB. This could be a Congestive Heart failure with preserved Ejection Fraction - ECHO showed EF of 65-70% - 20mg of Lasix was given - Give Added 80mg of Lasix IV and 40mg IV Daily - Will use Morphine for pain or Anxiety - Venti Mask Oxygen 40% - Hold IV Fluids - Follow: Pro BNP/Troponin/BMP/CBC/Magnesium #. Pyelonephritis - ID Dr Jackson is on consult - Continue Primaxin #. Hydroureternephrosis s/p Right Ureteral Stent Insertion(04/25/18) - Urology on consult with Dr Irvin #. Myelofibrosis with Leukocytosis and Thrombocytosis. - Dr Mcbride on consult for Heme/Onc - Jakafi and Hydrea on hold #. Renal Failure - Follow Renal labs Brennan Benedicto MD - Date & Time Date: 04/26/18 Time: 23:21
[2018-04-26 23:35] LABS: ABG ALLEN TEST POS; ARTERIAL BLOOD GAS HEMOGLOBIN 9.9 g/dL (11.7-17.4)
[2018-04-26 23:39] LABS: ARTERIAL BLOOD GAS O2 SAT 96.5 % (95-98); ARTERIAL BLOOD GAS PCO2 31 mm/Hg (35-45); ARTERIAL BLOOD GAS PH 7.37 (7.35-7.45); ARTERIAL BLOOD GAS PO2 67 mm/Hg (80-100); ARTERIAL BLOOD GAS TCO2 18.9 mmol/L (22-28)
[2018-04-27 01:42] LABS: BASO # 0.1 K/uL (0.0-0.2); BASO % 0.4 % (0.0-2.0); EOS # 0.5 K/uL (0.0-0.7); EOS % 1.7 % (0.0-4.0); HEMOGLOBIN 9.6 g/dL (11.0-16.0); LYMPH # 0.6 K/uL (1.0-4.3); LYMPH % 2.3 % (20.0-40.0); MEAN CELL VOLUME 88.8 fL (81.0-99.0); MEAN CORPUSCULAR HEMOGLOBIN 29.2 pg (27.0-31.0); MEAN CORPUSCULAR HGB CONC 32.8 g/dL (33.0-37.0); MEAN PLATELET VOLUME 12.7 fL (7.2-11.7); MONO # 3.3 K/uL (0.0-0.8); NEUT % 83.6 % (50.0-75.0); NRBC % 0.2 % (0.0-2.0); PLATELET COUNT 57 K/uL (130-400); RBC 3.28 Mil/uL (3.80-5.20); RED CELL DISTRIBUTION WIDTH 18.9 % (11.5-14.5); WHITE BLOOD COUNT 27.5 K/uL (4.8-10.8)
[2018-04-27 02:02] LABS: BLOOD UREA NITROGEN 39 mg/dL (7-17); CALCIUM 8.3 mg/dl (8.6-10.4); GFR NON-AFRICAN AMERICAN 20
[2018-04-27 02:04] LABS: B-TYPE NATRIURETIC PEPTIDE 15300 pg/mL (0-900)
[2018-04-27 03:53] LABS: BANDS 8 % (0-2); MONOCYTE 15 % (0-10); PLATELET ESTIMATE MARKEDLY DECREASED (NORMAL); TOTAL CELLS COUNTED 100
[2018-04-27 06:53] LABS: BASOPHIL 1 % (0-2); BLASTS 1 % (0-0); EOSINOPHIL 3 % (0-4); LYMPHOCYTE 2 % (20-40); METAMYELOCYTE 1 % (0-0); MYELOCYTE 6 % (0-0); NEUTROPHIL 61 % (50-75); REACTIVE LYMPHOCYTES 2 % (0-0)
--- NOTE | 2018-04-27 08:13 | RAD ---
Chest x-ray single frontal view History: Congestive heart failure. Comparison: 04/25/2018 Findings Moderate to severe venous congestion. Small right pleural effusion with adjacent consolidative changes at the right lung base. Enlarged ectatic aorta. Cardiomegaly. Degenerative changes in the spine and shoulders. Impression: Moderate to severe venous congestion. Small right pleural effusion with adjacent consolidative changes at the right lung base. Enlarged ectatic aorta. Cardiomegaly.
[2018-04-27] MEDS ORDERED: Pneumococcal 23-Valent Vaccine IM ONE (08:30)
--- NOTE | 2018-04-27 08:34 | RAD ---
Chest x-ray single frontal view History: Pulmonary edema. Comparison: 04/26/2018 Findings: Moderate venous congestion. Patchy bibasilar airspace opacities. Biapical pleural thickening with upper lobe granulomatous changes. Small right pleural effusion. Enlarged ectatic aorta. Cardiomegaly. Degenerative changes in the spine and shoulders. Impression: Moderate venous congestion. Patchy bibasilar airspace opacities. Biapical pleural thickening with upper lobe granulomatous changes. Small right pleural effusion. Enlarged ectatic aorta. Cardiomegaly. Degenerative changes in the spine and shoulders.
--- NOTE | 2018-04-27 08:50 | CP.PCM.PN ---
Subjective - Date & Time of Evaluation Date of Evaluation: 04/27/18 Time of Evaluation: 08:47 - Subjective Subjective: Patient seen and examined at bedside. Patient with h/o mylofibrosis and CKD stage III. patient feeling better. Objective - Vital Signs/Intake and Output Vital Signs (last 24 hours): Temp Pulse Resp BP Pulse Ox 98.3 F 77 19 129/70 98 04/27/18 01:00 04/27/18 06:30 04/27/18 06:30 04/27/18 06:30 04/27/18 06:30 Intake and Output: 04/27/18 04/27/18 06:59 18:59 Intake Total 650 Output Total 1100 Balance -450 - Medications Medications: Current Medications Acetaminophen (Tylenol 325mg Tab) 650 mg PO Q6 PRN PRN Reason: Pain, Mild (1-3) Last Admin: 04/26/18 17:01 Dose: 650 mg Famotidine (Pepcid) 20 mg PO DAILY [facility] Furosemide (Lasix) 40 mg IVP DAILY [facility] Imipenem/Cilastatin Sodium 500 (mg/ Sodium Chloride) 100 mls @ 100 mls/hr IVPB Q12H [facility]AN PRN Reason: Protocol Last Admin: 04/26/18 20:09 Dose: 100 mls/hr Ondansetron HCl (Zofran Inj) 4 mg IVP Q6 PRN PRN Reason: Nausea/Vomiting Last Admin: 04/24/18 12:32 Dose: 4 mg - Labs Labs: 04/27/18 01:39 04/27/18 01:39 PT 14.2 SECONDS (9.7-12.2) H 04/23/18 22:59 INR 1.3 04/23/18 22:59 APTT 33 SECONDS (21-34) 04/23/18 22:59 Assessment and Plan - Assessment and Plan (Free Text) Assessment: UTI: continue primaxin as per ID -CKD: avoid fluid overloaded states, keep euvolumic, consider early AV fistula -mylofibrosis: heme/onc eval -Chronic diastolic heart failure:control BP, not a candidate for ACEi 2nd renal failure, cardiology follow up. -DVT/PUD ppx -Patient remains hemodynamically stale. PAtient off pressors, on nasal canula and tolerating IV abx, avoid IVF as patient has CKD and at risk of fluid overloaded states. above management d/w daughter who is a nurse
--- NOTE | 2018-04-27 11:28 | CP.PCM.PN ---
Subjective - Date & Time of Evaluation Date of Evaluation: 04/27/18 Time of Evaluation: 13:45 - Subjective Subjective: clinically same Objective - Vital Signs/Intake and Output Vital Signs (last 24 hours): Temp Pulse Resp BP Pulse Ox 98.5 F 77 19 141/73 98 04/27/18 04:00 04/27/18 06:30 04/27/18 06:30 04/27/18 09:50 04/27/18 06:30 Intake and Output: 04/27/18 04/27/18 06:59 18:59 Intake Total 650 Output Total 1100 Balance -450 - Medications Medications: Current Medications Acetaminophen (Tylenol 325mg Tab) 650 mg PO Q6 PRN PRN Reason: Pain, Mild (1-3) Last Admin: 04/26/18 17:01 Dose: 650 mg Famotidine (Pepcid) 20 mg PO DAILY [facility] Last Admin: 04/27/18 09:50 Dose: 20 mg Furosemide (Lasix) 40 mg IVP DAILY [facility] Last Admin: 04/27/18 09:50 Dose: 40 mg Imipenem/Cilastatin Sodium 500 (mg/ Sodium Chloride) 100 mls @ 100 mls/hr IVPB Q12H [facility] PRN Reason: Protocol Last Admin: 04/27/18 09:49 Dose: 100 mls/hr Ondansetron HCl (Zofran Inj) 4 mg IVP Q6 PRN PRN Reason: Nausea/Vomiting Last Admin: 04/24/18 12:32 Dose: 4 mg - Labs Labs: 04/27/18 01:39 04/27/18 01:39 PT 14.2 SECONDS (9.7-12.2) H 04/23/18 22:59 INR 1.3 04/23/18 22:59 APTT 33 SECONDS (21-34) 04/23/18 22:59 - Constitutional Appears: Well - Head Exam Head Exam: ATRAUMATIC, NORMAL INSPECTION, NORMOCEPHALIC - Eye Exam Eye Exam: EOMI, Normal appearance, PERRL Pupil Exam: NORMAL ACCOMODATION, PERRL - ENT Exam ENT Exam: Mucous Membranes Moist, Normal Exam - Neck Exam Neck Exam: Full ROM, Normal Inspection. absent: Lymphadenopathy - Respiratory Exam Respiratory Exam: Decreased Breath Sounds - Cardiovascular Exam Cardiovascular Exam: REGULAR RHYTHM, +S1, +S2 - GI/Abdominal Exam GI & Abdominal Exam: Soft, Diminished Bowel Sounds - Rectal Exam Rectal Exam: Deferred
--- NOTE | 2018-04-27 14:10 | CP.PCM.CON ---
History of Present Illness - History of Present Illness History of Present Illness: cc; portal HTN HPI: Asked to provide GI consultation on this 67 year old woman with Myelofibrosis, admitted with pyelonephritis, found to be markedly thrombocytopenic and with evidence of splenomegaly, varices, splenic and portal vein thrombosis on sono and CT. Pt developed dyspnea last night and was moved to ICU. Currently denies dyspnea. Right ureter was stented by Dr Irvin on 04/25 for hydroureter. E Coli UTI was noted on admission. Pt notes abdominal swelling since ;last night. Denies abdominal pain or signs/symptoms of GI bleeding. Review of Systems - Constitutional Constitutional: absent: Chills, Fever - EENT Eyes: absent: Change in Vision Nose/Mouth/Throat: absent: Epistaxis - Cardiovascular Cardiovascular: Dyspnea. absent: Chest Pain - Respiratory Respiratory: Dyspnea - Gastrointestinal Gastrointestinal: absent: Abdominal Pain, Change in Bowel Habits, Hematochezia, Melena - Genitourinary Genitourinary: Dysuria - Musculoskeletal Musculoskeletal: absent: Back Pain - Integumentary Integumentary: absent: Rash, Jaundice - Neurological Neurological: absent: Syncope - Psychiatric Psychiatric: absent: Anxiety, Depression - Hematologic/Lymphatic Hematologic: absent: Easy Bleeding Past Patient History - Infectious Disease Hx of Infectious Diseases: None - Past Medical History & Family History Past Medical History?: Yes - Past Social History Smoking Status: Never Smoked Chewing Tobacco Use: No Cigar Use: No Alcohol: None Drugs: Denies Home Situation {Lives}: With Family - CARDIAC Hx Hypertension: Yes - PULMONARY Hx Respiratory Disorders: No - NEUROLOGICAL Hx Neurological Disorder: No - HEENT Hx HEENT Problems: No - RENAL Hx Chronic Kidney Disease: No - ENDOCRINE/METABOLIC Hx Endocrine Disorders: No - HEMATOLOGICAL/ONCOLOGICAL Hx Blood Disorders: Yes (Myelofibrosis) Other/Comment: Myelofibrosis - INTEGUMENTARY Hx Dermatological Problems: No - MUSCULOSKELETAL/RHEUMATOLOGICAL Hx Arthritis: Yes - GASTROINTESTINAL Hx Gastrointestinal Disorders: No - GENITOURINARY/GYNECOLOGICAL Hx Genitourinary Disorders: No Hx Urinary Tract Infection: Yes - PSYCHIATRIC Hx Substance Use: No - SURGICAL HISTORY Hx Surgeries: No Hx Eye Surgery: Yes (Glaucoma) - ANESTHESIA Hx Anesthesia: No Meds Allergies/Adverse Reactions: Allergies Allergy/AdvReac Type Severity Reaction Status Date / Time No Known Allergies Allergy Verified 04/23/18 07:41 - Medications Medications: Current Medications Acetaminophen (Tylenol 325mg Tab) 650 mg PO Q6 PRN PRN Reason: Pain, Mild (1-3) Last Admin: 04/26/18 17:01 Dose: 650 mg Famotidine (Pepcid) 20 mg PO DAILY [facility] Last Admin: 04/27/18 09:50 Dose: 20 mg Furosemide (Lasix) 40 mg IVP DAILY [facility] Last Admin: 04/27/18 09:50 Dose: 40 mg Imipenem/Cilastatin Sodium 500 (mg/ Sodium Chloride) 100 mls @ 100 mls/hr IVPB Q12H [facility] PRN Reason: Protocol Last Admin: 04/27/18 09:49 Dose: 100 mls/hr Ondansetron HCl (Zofran Inj) 4 mg IVP Q6 PRN PRN Reason: Nausea/Vomiting Last Admin: 04/24/18 12:32 Dose: 4 mg Physical Exam - Constitutional Appears: No Acute Distress - Head Exam Head Exam: NORMOCEPHALIC - Eye Exam Eye Exam: absent: Scleral icterus - Neck Exam Neck exam: Positive for: Normal Inspection - Respiratory Exam Respiratory Exam: NORMAL BREATHING PATTERN - Cardiovascular Exam Cardiovascular Exam: REGULAR RHYTHM. absent: Systolic Murmur - GI/Abdominal Exam GI & Abdominal Exam: Distended, Soft. absent: Guarding, Mass, Rebound, Tenderness - Rectal Exam Rectal Exam: Deferred - Back Exam Back exam: NORMAL INSPECTION - Neurological Exam Neurological exam: Alert, Oriented x3 - Psychiatric Exam Psychiatric exam: Normal Affect, Normal Mood Results - Vital Signs Recent Vital Signs: Last Vital Signs Temp 98.5 F 04/27/18 04:00 Pulse 77 04/27/18 06:30 Resp 19 04/27/18 06:30 BP 141/73 04/27/18 09:50 Pulse Ox 96 04/27/18 11:24 - Labs Result Diagrams: 04/27/18 01:39 04/27/18 01:39 Labs: Laboratory Results - last 24 hr 04/26/18 04/27/18 04/27/18 23:25 01:39 01:39 WBC 27.5 H RBC 3.28 L Hgb 9.6 L Hct 29.1 L MCV 88.8 MCH 29.2 MCHC 32.8 L RDW 18.9 H Plt Count 57 L MPV 12.7 H Neut % (Auto) 83.6 H Lymph % (Auto) 2.3 L [place] % (Auto) 12.0 H Eos % (Auto) 1.7 Baso % (Auto) 0.4 Neut # (Auto) 23.0 H Lymph # (Auto) 0.6 L [place] # (Auto) 3.3 H Eos # (Auto) 0.5 Baso # (Auto) 0.1 Neutrophils % (Manual) 61 Band Neutrophils % 8 H Lymphocytes % (Manual) 2 L Reactive Lymphs % 2 H Monocytes % (Manual) 15 H Eosinophils % (Manual) 3 Basophils % (Manual) 1 Metamyelocytes % 1 H Myelocytes % 6 H Blast Cells % 1 H Platelet Estimate Markedly decreased L Puncture Site Rradial pCO2 31 L pO2 67 L HCO3 20.0 L ABG pH 7.37 ABG Total CO2 18.9 L ABG O2 Saturation 96.5 ABG Base Excess -6.2 L ABG Hemoglobin 9.9 L ABG Carboxyhemoglobin 1.9 H POC ABG HHb (Measured) 5.1 H ABG Methemoglobin 1.1 Jey Test Pos A-a O2 Difference 122.0 Respiratory Index 1.8 Hgb O2 Saturation 91.9 L Liter Flow 3.0 FiO2 32.0 Sodium 141 Potassium 3.8 Chloride 109 H Carbon Dioxide 20 L Anion Gap 16 BUN 39 H Creatinine 2.4 H Est GFR ( Amer) 24 Est GFR (Non-Af Amer) 20 Random Glucose 116 H Calcium 8.3 L Magnesium 1.8 Troponin I < 0.0120 NT-Pro-B Natriuret Pep 43490 H - Imaging and Cardiology CT scan - abdomen Status: Report reviewed by me US - abdomen Status: Report reviewed by me Assessment & Plan (1) Hepatosplenomegaly Assessment and Plan: 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 Discussed with Dr Gale last night and advised Heparinization. Check sonogram for ascites. If Heparin does not improve clinical status, would recommend TIPSS (transfer to [facility]?) Status: Acute (2) Myelofibrosis Assessment and Plan: Managed by Dr Mcbride. Recent pathology on Bone Marrow does not show malignant transformation Status: Acute (3) Pyelonephritis due to Escherichia coli Assessment and Plan: Clinically stabilized with antibiotic and ureteral stenting Status: Acute (4) Thrombocytopenia Assessment and Plan: Secondary to splenomegaly Recommend anticoagulation Status: Acute - Date & Time Date: 04/27/18 Time: 14:19
--- NOTE | 2018-04-27 14:28 | US ---
Limited abdominal ultrasound History: Ascites. Comparison: Ultrasound dated 04/26/2018 Technique: Limited real-time sonography was performed through the abdomen. Findings: Study limited as the patient was in the ICU with limited mobility. Visualized IVC grossly preserved. Turbulent flow within the splenic vein without evidence of gross thrombus. Clinical correlation. Turbulent flow within the portal vein without gross thrombus. Patent flow in the hepatic veins. Right pleural effusion noted. Impression: Study limited as the patient was in the ICU with limited mobility. Turbulent flow within the splenic vein without evidence of gross thrombus. Clinical correlation. Turbulent flow within the portal vein without gross thrombus. Patent flow in the hepatic veins. Right pleural effusion noted.
--- NOTE | 2018-04-27 20:45 | CP.PCM.PN ---
Subjective - Date & Time of Evaluation Date of Evaluation: 04/24/18 Time of Evaluation: 20:45 - Subjective Subjective: Patient is still persistently having low-grade fever. I also spoke to the infectious disease. Currently an antibiotic. No abdominal pain, the pain is less than before. Patient is able to eat better. But she is feeling some cough wheezing Vital signs otherwise stable. Low-grade fever the. Chest good air entry regular heart sound nontender abdomen Patient is a 67-year-old female with a history of myelofibrosis. CAT scan revealing portal venous the irritation, unclear etiology. Liver cirrhotic changes noted. Splenomegaly present. Also right hydronephrosis mild. Pending urology evaluation and follow-up and will follow-up the patient. Currently an antibiotic Objective - Vital Signs/Intake and Output Vital Signs (last 24 hours): Temp Pulse Resp BP Pulse Ox 99.0 F 87 31 H 111/45 L 96 04/27/18 16:00 04/27/18 19:00 04/27/18 19:00 04/27/18 19:00 04/27/18 19:00 Intake and Output: 04/27/18 04/28/18 18:59 06:59 Intake Total 1000 250 Balance 1000 250 - Medications Medications: Current Medications Acetaminophen (Tylenol 325mg Tab) 650 mg PO Q6 PRN PRN Reason: Pain, Mild (1-3) Last Admin: 04/26/18 17:01 Dose: 650 mg Famotidine (Pepcid) 20 mg PO DAILY [facility] Last Admin: 04/27/18 09:50 Dose: 20 mg Furosemide (Lasix) 40 mg IVP DAILY [facility] Last Admin: 04/27/18 09:50 Dose: 40 mg Imipenem/Cilastatin Sodium 500 (mg/ Sodium Chloride) 100 mls @ 100 mls/hr IVPB Q12H [facility]AN PRN Reason: Protocol Last Admin: 04/27/18 09:49 Dose: 100 mls/hr Ondansetron HCl (Zofran Inj) 4 mg IVP Q6 PRN PRN Reason: Nausea/Vomiting Last Admin: 04/24/18 12:32 Dose: 4 mg Propranolol HCl (Inderal) 10 mg PO BID [facility] Last Admin: 04/27/18 17:08 Dose: 10 mg - Labs Labs: 04/27/18 01:39 04/27/18 01:39 PT 14.2 SECONDS (9.7-12.2) H 04/23/18 22:59 INR 1.3 04/23/18 22:59 APTT 33 SECONDS (21-34) 04/23/18 22:59
--- NOTE | 2018-04-27 20:45 | CP.PCM.PN ---
Subjective - Date & Time of Evaluation Date of Evaluation: 04/27/18 Time of Evaluation: 20:45 - Subjective Subjective: Patient last night diabetes to well. She is sitting up comfortably on nasal cannula 2 L, saturation 98%. Chest good air entry. No wheezing or rales noted, minimal cough present otherwise. Labs reviewed Elevated creatinine level noted. Platelet count still on the low side. Will discuss with riveter hand. Possibility of heparin drip possibly will start as soon as possible if okay by oncologist. Will discuss with them. Meanwhile will continue the current treatment Objective - Vital Signs/Intake and Output Vital Signs (last 24 hours): Temp Pulse Resp BP Pulse Ox 99.0 F 87 31 H 111/45 L 96 04/27/18 16:00 04/27/18 19:00 04/27/18 19:00 04/27/18 19:00 04/27/18 19:00 Intake and Output: 04/27/18 04/28/18 18:59 06:59 Intake Total 1000 250 Balance 1000 250 - Medications Medications: Current Medications Acetaminophen (Tylenol 325mg Tab) 650 mg PO Q6 PRN PRN Reason: Pain, Mild (1-3) Last Admin: 04/26/18 17:01 Dose: 650 mg Famotidine (Pepcid) 20 mg PO DAILY [facility] Last Admin: 04/27/18 09:50 Dose: 20 mg Furosemide (Lasix) 40 mg IVP DAILY [facility] Last Admin: 04/27/18 09:50 Dose: 40 mg Imipenem/Cilastatin Sodium 500 (mg/ Sodium Chloride) 100 mls @ 100 mls/hr IVPB Q12H [facility] PRN Reason: Protocol Last Admin: 04/27/18 09:49 Dose: 100 mls/hr Ondansetron HCl (Zofran Inj) 4 mg IVP Q6 PRN PRN Reason: Nausea/Vomiting Last Admin: 04/24/18 12:32 Dose: 4 mg Propranolol HCl (Inderal) 10 mg PO BID [facility] Last Admin: 04/27/18 17:08 Dose: 10 mg - Labs Labs: 04/27/18 01:39 04/27/18 01:39 PT 14.2 SECONDS (9.7-12.2) H 04/23/18 22:59 INR 1.3 04/23/18 22:59 APTT 33 SECONDS (21-34) 04/23/18 22:59
--- NOTE | 2018-04-27 20:45 | CP.PCM.PN ---
Subjective - Date & Time of Evaluation Date of Evaluation: 04/25/18 Time of Evaluation: 20:47 - Subjective Subjective: Today morning patient was feeling well. Eating better. But after discussion with the urologist and the patient's family with decided to go ahead and do the possible cystoscopy and stenting of the right urethral area. Patient also had abnormal bladder mucosa, biopsy was taken. Patient tolerated the procedure well. But suddenly patient developed high fever at night. Tylenol was given. Cultures were taken. Renal function still abnormal noted. On antibiotic. Spoke to the ID. We will continue to monitor. Repeat the sonogram tomorrow. Will follow-up the patient. Objective - Vital Signs/Intake and Output Vital Signs (last 24 hours): Temp Pulse Resp BP Pulse Ox 99.0 F 87 31 H 111/45 L 96 04/27/18 16:00 04/27/18 19:00 04/27/18 19:00 04/27/18 19:00 04/27/18 19:00 Intake and Output: 04/27/18 04/28/18 18:59 06:59 Intake Total 1000 250 Balance 1000 250 - Medications Medications: Current Medications Acetaminophen (Tylenol 325mg Tab) 650 mg PO Q6 PRN PRN Reason: Pain, Mild (1-3) Last Admin: 04/26/18 17:01 Dose: 650 mg Famotidine (Pepcid) 20 mg PO DAILY [facility] Last Admin: 04/27/18 09:50 Dose: 20 mg Furosemide (Lasix) 40 mg IVP DAILY [facility] Last Admin: 04/27/18 09:50 Dose: 40 mg Imipenem/Cilastatin Sodium 500 (mg/ Sodium Chloride) 100 mls @ 100 mls/hr IVPB Q12H [facility] PRN Reason: Protocol Last Admin: 04/27/18 09:49 Dose: 100 mls/hr Ondansetron HCl (Zofran Inj) 4 mg IVP Q6 PRN PRN Reason: Nausea/Vomiting Last Admin: 04/24/18 12:32 Dose: 4 mg Propranolol HCl (Inderal) 10 mg PO BID [facility] Last Admin: 04/27/18 17:08 Dose: 10 mg - Labs Labs: 04/27/18 01:39 04/27/18 01:39 PT 14.2 SECONDS (9.7-12.2) H 09/05/18 22:59 INR 1.3 04/23/18 22:59 APTT 33 SECONDS (21-34) 04/23/18 22:59
[2018-04-27] MEDS ORDERED: Heparin25000 units/250ml 1/2NS 25,000 UNITS/250 ML BAG IV PRN (22:13)
--- NOTE | 2018-04-27 22:28 | CON ---
DATE: 04/27/2018 UROLOGY CONSULTATION REQUESTED BY: Clif Gutiérrez MD and by Elena Gale MD. Urology consultation is filled by Dr. Flor Irvin. REASON FOR CONSULTATION: Urinary tract infection. Hydronephrosis. HISTORY OF PRESENT ILLNESS: The patient is a 67-year-old female admitted with urinary tract infection. The patient has had recurrent urinary tract infections over the past 6 weeks. The patient has had two previous hospitalizations at [facility]. The patient was treated with parenteral antibiotics and improved. Thereafter, she relapsed. The patient previously had symptoms of lower abdominal pain, dysuria and frequency. This episode which prompted her hospitalization at [facility] this week involved right flank pain. The patient has had severe right flank pain for the past several days. She had fever as well. She had marked leukocytosis. The patient was treated with parenteral antibiotics. She had persistent pain and fever yesterday. The patient was found to have right hydroureteronephrosis. There was no stone identified. The patient is in otherwise fair health. The patient has history of previous labor and delivery. No history of previous abdominal surgery. The patient has history of myelodysplastic disease with elevated white blood count. Her usual white blood count is approximately 20,000. During this admission went up to approximately 40,000. PHYSICAL EXAMINATION: GENERAL: The patient is well-developed, well-nourished female, appearing her stated age. The patient is awake and alert. VITAL SIGNS: Stable. Maximum temperature is 100.7. ABDOMEN: Soft, nontender, nondistended. No mass or organomegaly. BACK: No CVA tenderness. LABORATORY DATA: Reviewed. CAT scan is reviewed as well. IMPRESSION: 1. Right pyelonephritis. 2. Recurrent urinary tract infection. 3. Right hydronephrosis. RECOMMENDATIONS AND PLAN: I discussed the findings with the patient and with the daughter. Urine cultures pending. Continue antibiotic therapy. Plan for cystoscopy and stent insertion. Further therapy to follow according to the patient's clinical course as well as results of above. Nature of the procedure including risks, benefits, and alternatives have been explained to the patient as well. Thank you for recommending the patient for Urology consultation. [place] MD Albaro cc: MD Clif Ellis MD [facility] # [phone]
--- NOTE | 2018-04-27 22:31 | CP.PCM.PN ---
Subjective - Date & Time of Evaluation Date of Evaluation: 04/25/18 Time of Evaluation: 12:00 - Subjective Subjective: Feeling better. Objective - Vital Signs/Intake and Output Vital Signs (last 24 hours): Temp Pulse Resp BP Pulse Ox 99.0 F 87 31 H 111/45 L 96 04/27/18 16:00 04/27/18 19:00 04/27/18 19:00 04/27/18 19:00 04/27/18 19:00 Intake and Output: 04/27/18 04/28/18 18:59 06:59 Intake Total 1000 250 Balance 1000 250 - Medications Medications: Current Medications Acetaminophen (Tylenol 325mg Tab) 650 mg PO Q6 PRN PRN Reason: Pain, Mild (1-3) Last Admin: 04/27/18 20:55 Dose: 650 mg Famotidine (Pepcid) 20 mg PO DAILY [facility] Last Admin: 04/27/18 09:50 Dose: 20 mg Furosemide (Lasix) 40 mg IVP DAILY [facility] Last Admin: 04/27/18 09:50 Dose: 40 mg Imipenem/Cilastatin Sodium 500 (mg/ Sodium Chloride) 100 mls @ 100 mls/hr IVPB Q12H [facility] PRN Reason: Protocol Last Admin: 04/27/18 19:30 Dose: 100 mls/hr Heparin Sodium/Sodium Chloride (Heparin 83704 Units/250ml 1/2 Normal Saline) 25 ,000 units in 250 mls @ 13.463 mls/hr IV .[id number] PRN; Protocol; 18 UNITS/KG/HR PRN Reason: PROTOCOL Ondansetron HCl (Zofran Inj) 4 mg IVP Q6 PRN PRN Reason: Nausea/Vomiting Last Admin: 04/24/18 12:32 Dose: 4 mg Propranolol HCl (Inderal) 10 mg PO BID [facility] Last Admin: 04/27/18 17:08 Dose: 10 mg - Labs Labs: 04/27/18 01:39 04/27/18 01:39 PT 14.2 SECONDS (9.7-12.2) H 04/23/18 22:59 INR 1.3 04/23/18 22:59 APTT 33 SECONDS (21-34) 04/23/18 22:59 - Head Exam Head Exam: ATRAUMATIC - Eye Exam Eye Exam: Normal appearance - ENT Exam ENT Exam: Mucous Membranes Dry - Respiratory Exam Respiratory Exam: NORMAL BREATHING PATTERN - Cardiovascular Exam Cardiovascular Exam: +S1, +S2 - GI/Abdominal Exam GI & Abdominal Exam: Normal Bowel Sounds Assessment and Plan (1) Leucocytosis Assessment & Plan: improved with Abx WBC at baseline for pts myelofibrosis Status: Acute (2) Thrombocytopenia Assessment & Plan: suspect exacerbated by infection splenic sequestration slow to rebound due to myelofibrosis Status: Acute (3) Hepatosplenomegaly Assessment & Plan: secondary to myelofibrosis ? portal/splenic thrombus exacerbating Status: Acute (4) Anemia Assessment & Plan: myelofibrosis chronic disease Status: Acute (5) Myelofibrosis Status: Acute
--- NOTE | 2018-04-27 22:35 | CP.PCM.PN ---
Subjective - Date & Time of Evaluation Date of Evaluation: 04/26/18 Time of Evaluation: 22:50 - Subjective Subjective: Feels short of breath today.. Case discussed with Dr. Gale, to be monitored in ICU GI evaluation in AM regarding varices ? cirrhosis ? portal vein thrombus Objective - Vital Signs/Intake and Output Vital Signs (last 24 hours): Temp Pulse Resp BP Pulse Ox 99.0 F 87 31 H 111/45 L 96 04/27/18 16:00 04/27/18 19:00 04/27/18 19:00 04/27/18 19:00 04/27/18 19:00 Intake and Output: 04/27/18 04/28/18 18:59 06:59 Intake Total 1000 250 Balance 1000 250 - Medications Medications: Current Medications Acetaminophen (Tylenol 325mg Tab) 650 mg PO Q6 PRN PRN Reason: Pain, Mild (1-3) Last Admin: 04/27/18 20:55 Dose: 650 mg Famotidine (Pepcid) 20 mg PO DAILY [facility] Last Admin: 04/27/18 09:50 Dose: 20 mg Furosemide (Lasix) 40 mg IVP DAILY [facility] Last Admin: 04/27/18 09:50 Dose: 40 mg Imipenem/Cilastatin Sodium 500 (mg/ Sodium Chloride) 100 mls @ 100 mls/hr IVPB Q12H [facility] PRN Reason: Protocol Last Admin: 04/27/18 19:30 Dose: 100 mls/hr Heparin Sodium/Sodium Chloride (Heparin 54774 Units/250ml 1/2 Normal Saline) 25 ,000 units in 250 mls @ 13.463 mls/hr IV .[id number] PRN; Protocol; 18 UNITS/KG/HR PRN Reason: PROTOCOL Ondansetron HCl (Zofran Inj) 4 mg IVP Q6 PRN PRN Reason: Nausea/Vomiting Last Admin: 04/24/18 12:32 Dose: 4 mg Propranolol HCl (Inderal) 10 mg PO BID [facility] Last Admin: 04/27/18 17:08 Dose: 10 mg - Labs Labs: 04/27/18 01:39 04/27/18 01:39 PT 14.2 SECONDS (9.7-12.2) H 04/23/18 22:59 INR 1.3 04/23/18 22:59 APTT 33 SECONDS (21-34) 04/23/18 22:59 - Head Exam Head Exam: ATRAUMATIC - Eye Exam Eye Exam: Normal appearance - ENT Exam ENT Exam: Mucous Membranes Dry - Respiratory Exam Respiratory Exam: NORMAL BREATHING PATTERN - Cardiovascular Exam Cardiovascular Exam: +S1, +S2 - GI/Abdominal Exam GI & Abdominal Exam: Normal Bowel Sounds Assessment and Plan (1) Leucocytosis Assessment & Plan: improved with ABX at baseline for myelofibrosis Status: Acute (2) Thrombocytopenia Assessment & Plan: progressive likely infection related slow to rebound due to myelofibrosis element of splenic sequestration Status: Acute (3) Hepatosplenomegaly Assessment & Plan: myelofibrosis ? cirrhosis ? 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
--- NOTE | 2018-04-27 22:39 | CP.PCM.PN ---
Subjective - Date & Time of Evaluation Date of Evaluation: 04/27/18 Time of Evaluation: 22:00 - Subjective Subjective: Moved to ICU for closer monitoring Seen by GI, appreciate recs plt count improving, for anticoagulation consideration in AM Objective - Vital Signs/Intake and Output Vital Signs (last 24 hours): Temp Pulse Resp BP Pulse Ox 99.0 F 87 31 H 111/45 L 96 04/27/18 16:00 04/27/18 19:00 04/27/18 19:00 04/27/18 19:00 04/27/18 19:00 Intake and Output: 04/27/18 04/28/18 18:59 06:59 Intake Total 1000 250 Balance 1000 250 - Medications Medications: Current Medications Acetaminophen (Tylenol 325mg Tab) 650 mg PO Q6 PRN PRN Reason: Pain, Mild (1-3) Last Admin: 04/27/18 20:55 Dose: 650 mg Famotidine (Pepcid) 20 mg PO DAILY [facility] Last Admin: 04/27/18 09:50 Dose: 20 mg Furosemide (Lasix) 40 mg IVP DAILY [facility] Last Admin: 04/27/18 09:50 Dose: 40 mg Imipenem/Cilastatin Sodium 500 (mg/ Sodium Chloride) 100 mls @ 100 mls/hr IVPB Q12H [facility] PRN Reason: Protocol Last Admin: 04/27/18 19:30 Dose: 100 mls/hr Heparin Sodium/Sodium Chloride (Heparin 59417 Units/250ml 1/2 Normal Saline) 25 ,000 units in 250 mls @ 13.463 mls/hr IV .[id number] PRN; Protocol; 18 UNITS/KG/HR PRN Reason: PROTOCOL Ondansetron HCl (Zofran Inj) 4 mg IVP Q6 PRN PRN Reason: Nausea/Vomiting Last Admin: 04/24/18 12:32 Dose: 4 mg Propranolol HCl (Inderal) 10 mg PO BID [facility] Last Admin: 04/27/18 17:08 Dose: 10 mg - Labs Labs: 04/27/18 01:39 04/27/18 01:39 PT 14.2 SECONDS (9.7-12.2) H 04/23/18 22:59 INR 1.3 04/23/18 22:59 APTT 33 SECONDS (21-34) 04/23/18 22:59 - Head Exam Head Exam: ATRAUMATIC - Eye Exam Eye Exam: Normal appearance - ENT Exam ENT Exam: Mucous Membranes Dry - Respiratory Exam Respiratory Exam: NORMAL BREATHING PATTERN - Cardiovascular Exam Cardiovascular Exam: +S1, +S2 - GI/Abdominal Exam GI & Abdominal Exam: Normal Bowel Sounds Assessment and Plan (1) Leucocytosis Assessment & Plan: at baseline for myelofibrosis on antibiotics Status: Acute (2) Thrombocytopenia Assessment & Plan: improving sepsis related slow to improve due to myelofibrosis Status: Acute (3) Hepatosplenomegaly Assessment & Plan: myelofibrosis rule out cirrhosis, rule out splenic vein thrombus recommend anticoagulation in AM if plt count cont. to improve Status: Acute (4) Anemia Status: Acute (5) Myelofibrosis Assessment & Plan: outpatient Jakafi and Hydrea Status: Acute
--- NOTE | 2018-04-27 22:40 | OP ---
PROCEDURE DATE: 04/25/2018 PREOPERATIVE DIAGNOSES: 1. Right hydronephrosis. 2. Right pyelonephritis. POSTOPERATIVE DIAGNOSES: 1. Right hydronephrosis. 2. Right pyelonephritis. 3. Cystitis. PROCEDURES: 1. Cystoscopy. 2. Right retrograde pyelogram. 3. Insertion of right ureteral stent. 4. Bladder biopsy and fulguration. 5. Exam under anesthesia. OPERATING SURGEON: Flor Irvin MD DESCRIPTION OF PROCEDURE: Procedure was performed under video endoscopic control as well as under fluoroscopic control. The patient was placed in supine position. Genitalia were prepped and draped sterilely. The patient received sedation anesthesia as per the anesthesiologist. A 22-Indian cystoscope sheath was introduced with obturator. Urine was sent for bacteriologic examination. The bladder was inspected. There was noted to be diffuse [id number] cystitis. There were some focal areas of more hemorrhagic inflammation. There was marked inflammation of the trigone as well. On the right floor of the bladder, there was a great amount of inflammation with a polypoid mucosal area. There was some chronic inflammation and a white-yellow plaque and debris as well. There were no stones within the bladder. The left ureteral orifice was normal. The right ureteral orifice was more involved in this inflammatory process. Occlusive tip right retrograde ureteropyelogram was performed. Iodinated contrast dye was instilled via cone-tip catheter into right ureteral orifice. The right retrograde pyelogram demonstrated narrowing of the distal intramural ureter approximately 1 cm to 2 cm above the orifice. Thereafter, the ureter was noted to be moderately dilated. There was moderate dilation of the remainder of the mid and proximal ureter and there was moderate hydronephrosis. Hydronephrosis persisted on subsequent fluoroscopic views approximately 2 minutes later. A 0.035-inch guidewire was inserted into the right ureteral orifice, passed up to the level of the kidney. An open-ended catheter was inserted over the ureteral catheter. Full ureteral pyelogram was thus obtained, and confirmed the above findings. The guidewire was reinserted. The open-ended catheter was removed. A 6-Indian multi-length stent was inserted. Proper stent position was confirmed in the right kidney as well as in the bladder with fluoroscopy and with endoscopy respectively. The guidewire was removed. Stent was left in place. The area of the abnormal mucosa was biopsied using cold cup biopsy forceps. Fulguration was performed with Ball electrode and electrocautery. The bladder was reinspected with 70-degree lens to confirm the above findings. There was no other abnormality noted. The bladder was then drained. Cystoscope sheath removed. Exam under anesthesia was performed. The uterus was mobile. There was no adnexal mass. There was no abnormal pelvic mass fixation or induration. The patient tolerated the procedure without complication. [facility] MD Albaro cc: MD Clif Ellis MD
[2018-04-28 06:35] LABS: BASO # 0.1 K/uL (0.0-0.2); BASO % 0.5 % (0.0-2.0); EOS # 0.7 K/uL (0.0-0.7); EOS % 2.3 % (0.0-4.0); HEMOGLOBIN 9.9 g/dL (11.0-16.0); LYMPH # 0.6 K/uL (1.0-4.3); LYMPH % 1.9 % (20.0-40.0); MEAN CELL VOLUME 88.3 fL (81.0-99.0); MEAN CORPUSCULAR HEMOGLOBIN 29.3 pg (27.0-31.0); MEAN CORPUSCULAR HGB CONC 33.2 g/dL (33.0-37.0); MEAN PLATELET VOLUME 12.9 fL (7.2-11.7); MONO # 3.3 K/uL (0.0-0.8); MONO % 10.3 % (0.0-10.0); NEUT # 26.9 K/uL (1.8-7.0); NRBC % 0.1 % (0.0-2.0); PLATELET COUNT 64 K/uL (130-400); RBC 3.38 Mil/uL (3.80-5.20); RED CELL DISTRIBUTION WIDTH 18.7 % (11.5-14.5); WHITE BLOOD COUNT 31.7 K/uL (4.8-10.8)
[2018-04-28 06:53] LABS: ALBUMIN 2.9 g/dL (3.5-5.0); ALT/SGPT 27 U/L (9-52); AST/SGOT 22 U/L (14-36); BLOOD UREA NITROGEN 47 mg/dL (7-17); CALCIUM 8.1 mg/dl (8.6-10.4); GFR NON-AFRICAN AMERICAN 25
[2018-04-28 07:14] LABS: HEPATITIS B SURFACE AG Negative (NEGATIVE)
[2018-04-28 07:20] LABS: HEPATITIS B CORE AB NEGATIVE (NEGATIVE)
[2018-04-28 07:21] LABS: HEPATITIS A IGM NEGATIVE (NEGATIVE)
[2018-04-28 07:27] LABS: HEPATITIS B CORE AB NEGATIVE (NEGATIVE)
[2018-04-28 07:32] LABS: HEPATITIS C ANTIBODY NEGATIVE (NEGATIVE)
[2018-04-28 08:35] LABS: ANISOCYTOSIS MODERATE; BANDS 9 % (0-2); EOSINOPHIL 2 % (0-4); LYMPHOCYTE 1 % (20-40); METAMYELOCYTE 2 % (0-0); MONOCYTE 14 % (0-10); MYELOCYTE 1 % (0-0); NEUTROPHIL 71 % (50-75); NUCLEATED RED BLOOD CELL 1 % (0-0); PLATELET ESTIMATE DECREASED (NORMAL); TOTAL CELLS COUNTED 100
[2018-04-28 08:36] LABS: HYPOCHROMIC SLIGHT; LARGE PLATELETS PRESENT; OVALOCYTES SLIGHT; POIKILOCYTOSIS SLIGHT; POLYCHROMIC SLIGHT; TOXIC GRANULATION PRESENT
[2018-04-28 08:37] LABS: GIANT PLATELETS PRESENT
[2018-04-28] MEDS ORDERED: Digoxin 500 mcg/2ml (0.5 mg/2ml) Inj IVP ONE ×2 (12:15→13:15)
[2018-04-28 13:06] VITALS: PULSE 150
[2018-04-28] MEDS ORDERED: Digoxin 500 mcg/2ml (0.5 mg/2ml) Inj ONE (13:07)
[2018-04-28] MEDS ORDERED: Heparin25000 units/250ml 1/2NS 25,000 UNITS/250 ML BAG IV PRN (13:22)
--- NOTE | 2018-04-28 13:23 | CP.CCUPN ---
CCU Subjective - Physician Review Subjective (Free Text): 04/28/18 13:44 ICU Progress note Patient seen and examined at bedside. She initially stated she felt comfortable today, however later was found to be in Atrial fibrillation. She denies chest pain, feeling short of breath. She denies prior history of A fib. She began to complain of left upper back pain near her lateral left ribs. She denies flank pain bilaterally. 04/28/18 15:23 CCU Objective - Vital Signs / Intake & Output Vital Signs (Last 4 hours): Vital Signs BP 04/28/18 09:49 110/70 Intake and Output (Last 8hrs): Intake & Output 04/27/18 04/28/18 04/28/18 22:59 06:59 14:59 Intake Total 600 0 485 Balance 600 0 485 Weight 163 lb 9.6 oz Intake: Intake, IV Amount 100 0 5 Left FA 100 0 Right Forearm 5 Oral 500 0 480 Other: # Voids Urine, Voided 0 0 1 - Physical Exam Head: Positive for: Atraumatic, Normocephalic Extroacular Muscles: Positive for: EOMI Mouth: Positive for: Moist Mucous Membranes Respiratory/Chest: Positive for: Good Air Exchange, Rales (at bases bilaterally) . Negative for: Respiratory Distress Cardiovascular: Positive for: Irregular Rhythm, Tachycardic (Irregularly irregular with rate 140s) Abdomen: Negative for: Tenderness, Distention Back: Positive for: Other (Left sacral fullness noted, with no tenderness over area. ). Negative for: CVA Tenderness Upper Extremity: Positive for: NORMAL PULSES, Capillary Refill < 2s. Negative for: Edema Lower Extremity: Positive for: NORMAL PULSES. Negative for: Edema, CALF TENDERNESS Neurological: Positive for: GCS=15, CN II-XII Intact Skin: Positive for: Warm, Dry, Normal Color Psychiatric: Positive for: Alert, Oriented x 3 - Medications Active Medications: Active Medications Generic Name Dose Route Start Last Admin Trade Name Freq PRN Reason Stop Dose Admin Acetaminophen 650 mg 04/26/18 17:00 04/28/18 12:09 Tylenol 325mg Tab PO 650 mg Q6 PRN Administration Pain, Mild (1-3) Famotidine 20 mg 04/27/18 10:00 04/28/18 09:50 Pepcid PO 20 mg DAILY NAN Administration Imipenem/Cilastatin Sodium 500 100 mls @ 100 mls/hr 04/24/18 20:30 04/28/18 08:00 mg/ Sodium Chloride IVPB 100 mls/hr Q12H NAN Administration Protocol Diltiazem HCl 125 mg/ Dextrose 125 mls @ 5 mls/hr 04/28/18 12:15 04/28/18 12: 35 IV 5 mg/hr .Q24H NAN 5 mls/hr Protocol Administration 5 MG/HR Metoprolol Tartrate 2.5 mg 04/28/18 13:30 Lopressor IVP 04/28/18 13:31 ONCE ONE Ondansetron HCl 4 mg 04/24/18 12:19 04/24/18 12:32 Zofran Inj IVP 4 mg Q6 PRN Administration Nausea/Vomiting Propranolol HCl 10 mg 04/27/18 18:00 04/28/18 09:49 Inderal PO 10 mg BID NAN Administration - Patient Studies Lab Studies: Microbiology Studies 04/27/18 Unknown MRSA Culture (Admit) - Final Naris MRSA NOT DETECTED 04/23/18 10:03 Blood Culture - Final Blood NO GROWTH AFTER 5 DAYS Gram Stain - Final TEST NOT PERFORMED 04/23/18 10:03 Blood Culture - Final Blood NO GROWTH AFTER 5 DAYS Gram Stain - Final TEST NOT PERFORMED 04/25/18 21:53 Blood Culture - Preliminary Blood-Venous NO GROWTH AFTER 48 HOURS 04/25/18 20:00 Blood Culture - Preliminary Blood-Venous NO GROWTH AFTER 48 HOURS Lab Studies 04/28/18 04/28/18 04/28/18 Range/Units 06:19 06:18 06:18 WBC 31.7 H (4.8-10.8) K/uL RBC 3.38 L (3.80-5.20) Mil/uL Hgb 9.9 L (11.0-16.0) g/dL Hct 29.9 L (34.0-47.0) % MCV 88.3 (81.0-99.0) fL MCH 29.3 (27.0-31.0) pg MCHC 33.2 (33.0-37.0) g/dL RDW 18.7 H (11.5-14.5) % Plt Count 64 L (130-400) K/uL MPV 12.9 H (7.2-11.7) fL Neut % (Auto) 85.0 H (50.0-75.0) % Lymph % (Auto) 1.9 L (20.0-40.0) % Craig % (Auto) 10.3 H (0.0-10.0) % Eos % (Auto) 2.3 (0.0-4.0) % Baso % (Auto) 0.5 (0.0-2.0) % Neut # (Auto) 26.9 H (1.8-7.0) K/uL Lymph # (Auto) 0.6 L (1.0-4.3) K/uL Craig # (Auto) 3.3 H (0.0-0.8) K/uL Eos # (Auto) 0.7 (0.0-0.7) K/uL Baso # (Auto) 0.1 (0.0-0.2) K/uL Neutrophils % (Manual) 71 (50-75) % Band Neutrophils % 9 H (0-2) % Lymphocytes % (Manual) 1 L (20-40) % Monocytes % (Manual) 14 H (0-10) % Eosinophils % (Manual) 2 (0-4) % Metamyelocytes % 2 H (0-0) % Myelocytes % 1 H (0-0) % Nucleated RBC % 1 H (0-0) % Toxic Granulation Present Platelet Estimate Decreased L (NORMAL) Large Platelets Present Giant Platelets Present Polychromasia Slight Hypochromasia (manual) Slight Poikilocytosis (manual Slight Anisocytosis (manual) Moderate Ovalocytes Slight Sodium (132-148) mmol/L Potassium (3.6-5.2) mmol/L Chloride (98-107) mmol/L Carbon Dioxide (22-30) mmol/L Anion Gap (10-20) BUN (7-17) mg/dL Creatinine (0.7-1.2) mg/dL Est GFR ( Amer) Est GFR (Non-Af Amer) Random Glucose (65-105) mg/dL Lactic Acid (0.7-2.1) mmol/L Calcium (8.6-10.4) mg/dl Phosphorus (2.5-4.5) mg/dL Magnesium (1.6-2.3) mg/dL Total Bilirubin (0.2-1.3) mg/dL AST (14-36) U/L ALT (9-52) U/L Alkaline Phosphatase (38-126) U/L Total Protein (6.3-8.3) g/dL Albumin (3.5-5.0) g/dL Globulin (2.2-3.9) gm/dL Albumin/Globulin Ratio (1.0-2.1) Alpha Fetoprotein (0.0-7.5) ng/mL Hepatitis A IgM Ab Negative (NEGATIVE) Hep Bs Antigen Negative (NEGATIVE) Hep Bs Antibody Negative (NEGATIVE) Hep B Core IgM Ab Negative (NEGATIVE) Hepatitis C Antibody Negative (NEGATIVE) 04/28/18 04/28/18 04/28/18 Range/Units 06:18 06:18 06:16 WBC (4.8-10.8) K/uL RBC (3.80-5.20) Mil/uL Hgb (11.0-16.0) g/dL Hct (34.0-47.0) % MCV (81.0-99.0) fL MCH (27.0-31.0) pg MCHC (33.0-37.0) g/dL RDW (11.5-14.5) % Plt Count (130-400) K/uL MPV (7.2-11.7) fL Neut % (Auto) (50.0-75.0) % Lymph % (Auto) (20.0-40.0) % Craig % (Auto) (0.0-10.0) % Eos % (Auto) (0.0-4.0) % Baso % (Auto) (0.0-2.0) % Neut # (Auto) (1.8-7.0) K/uL Lymph # (Auto) (1.0-4.3) K/uL Craig # (Auto) (0.0-0.8) K/uL Eos # (Auto) (0.0-0.7) K/uL Baso # (Auto) (0.0-0.2) K/uL Neutrophils % (Manual) (50-75) % Band Neutrophils % (0-2) % Lymphocytes % (Manual) (20-40) % Monocytes % (Manual) (0-10) % Eosinophils % (Manual) (0-4) % Metamyelocytes % (0-0) % Myelocytes % (0-0) % Nucleated RBC % (0-0) % Toxic Granulation Platelet Estimate (NORMAL) Large Platelets Giant Platelets Polychromasia Hypochromasia (manual) Poikilocytosis (manual Anisocytosis (manual) Ovalocytes Sodium 141 (132-148) mmol/L Potassium 3.8 (3.6-5.2) mmol/L Chloride 107 (98-107) mmol/L Carbon Dioxide 23 (22-30) mmol/L Anion Gap 15 (10-20) BUN 47 H (7-17) mg/dL Creatinine 2.0 H (0.7-1.2) mg/dL Est GFR ( Amer) 30 Est GFR (Non-Af Amer) 25 Random Glucose 98 (65-105) mg/dL Lactic Acid 0.8 (0.7-2.1) mmol/L Calcium 8.1 L (8.6-10.4) mg/dl Phosphorus 2.8 (2.5-4.5) mg/dL Magnesium 1.7 (1.6-2.3) mg/dL Total Bilirubin 0.7 (0.2-1.3) mg/dL AST 22 (14-36) U/L ALT 27 (9-52) U/L Alkaline Phosphatase 35 L (38-126) U/L Total Protein 5.9 L (6.3-8.3) g/dL Albumin 2.9 L (3.5-5.0) g/dL Globulin 3.0 (2.2-3.9) gm/dL Albumin/Globulin Ratio 1.0 (1.0-2.1) Alpha Fetoprotein < 0.8 (0.0-7.5) ng/mL Hepatitis A IgM Ab (NEGATIVE) Hep Bs Antigen (NEGATIVE) Hep Bs Antibody (NEGATIVE) Hep B Core IgM Ab Negative (NEGATIVE) Hepatitis C Antibody (NEGATIVE) Laboratory Results - last 24 hr 04/28/18 04/28/18 04/28/18 06:16 06:18 06:18 WBC RBC Hgb Hct MCV MCH MCHC RDW Plt Count MPV Neut % (Auto) Lymph % (Auto) Craig % (Auto) Eos % (Auto) Baso % (Auto) Neut # (Auto) Lymph # (Auto) Craig # (Auto) Eos # (Auto) Baso # (Auto) Neutrophils % (Manual) Band Neutrophils % Lymphocytes % (Manual) Monocytes % (Manual) Eosinophils % (Manual) Metamyelocytes % Myelocytes % Nucleated RBC % Toxic Granulation Platelet Estimate Large Platelets Giant Platelets Polychromasia Hypochromasia (manual) Poikilocytosis (manual Anisocytosis (manual) Ovalocytes Sodium 141 Potassium 3.8 Chloride 107 Carbon Dioxide 23 Anion Gap 15 BUN 47 H Creatinine 2.0 H Est GFR ( Amer) 30 Est GFR (Non-Af Amer) 25 Random Glucose 98 Lactic Acid 0.8 Calcium 8.1 L Phosphorus 2.8 Magnesium 1.7 Total Bilirubin 0.7 AST 22 ALT 27 Alkaline Phosphatase 35 L Total Protein 5.9 L Albumin 2.9 L Globulin 3.0 Albumin/Globulin Ratio 1.0 Alpha Fetoprotein < 0.8 Hepatitis A IgM Ab Hep Bs Antigen Hep Bs Antibody Hep B Core IgM Ab Negative Hepatitis C Antibody 04/28/18 04/28/18 04/28/18 06:18 06:18 06:19 WBC 31.7 H RBC 3.38 L Hgb 9.9 L Hct 29.9 L MCV 88.3 MCH 29.3 MCHC 33.2 RDW 18.7 H Plt Count 64 L MPV 12.9 H Neut % (Auto) 85.0 H Lymph % (Auto) 1.9 L Craig % (Auto) 10.3 H Eos % (Auto) 2.3 Baso % (Auto) 0.5 Neut # (Auto) 26.9 H Lymph # (Auto) 0.6 L Craig # (Auto) 3.3 H Eos # (Auto) 0.7 Baso # (Auto) 0.1 Neutrophils % (Manual) 71 Band Neutrophils % 9 H Lymphocytes % (Manual) 1 L Monocytes % (Manual) 14 H Eosinophils % (Manual) 2 Metamyelocytes % 2 H Myelocytes % 1 H Nucleated RBC % 1 H Toxic Granulation Present Platelet Estimate Decreased L Large Platelets Present Giant Platelets Present Polychromasia Slight Hypochromasia (manual) Slight Poikilocytosis (manual Slight Anisocytosis (manual) Moderate Ovalocytes Slight Sodium Potassium Chloride Carbon Dioxide Anion Gap BUN Creatinine Est GFR ( Amer) Est GFR (Non-Af Amer) Random Glucose Lactic Acid Calcium Phosphorus Magnesium Total Bilirubin AST ALT Alkaline Phosphatase Total Protein Albumin Globulin Albumin/Globulin Ratio Alpha Fetoprotein Hepatitis A IgM Ab Negative Hep Bs Antigen Negative Hep Bs Antibody Negative Hep B Core IgM Ab Negative Hepatitis C Antibody Negative EKG/Cardiology Studies: Cardiology / EKG Studies 04/28/18 12:24 ELECTROCARDIOGRAM Stat Comment: Mode Of Transportation: Reason For Exam: AFIB Review of Systems - Constitutional Constitutional: absent: Fever, Chills - EENT Eyes: absent: Change in Vision - Cardiovascular Cardiovascular: absent: Chest Pain, Dyspnea, Palpitations - Respiratory Respiratory: absent: Cough, Dyspnea - Gastrointestinal Gastrointestinal: absent: Abdominal Pain, Bloating, Nausea, Vomiting - Musculoskeletal Musculoskeletal: Back Pain - Neurological Neurological: absent: Dizziness, Numbness Critical Care Progress Note - Nutrition Nutrition: Nutrition Category Date Time Status Regular Diet [DIET] Diets 04/25/18 Dinner Active Assessment/Plan - Assessment and Plan (Free Text) Assessment: 67 year old female with history of arthritis, HTN, myelofibrosis with chronic leukocytosis who was admitted for right flank pain following failed outpatient treatment of pyelonephritis. CT revealed right hydroureteronephrosis with ureteral stricture, and she is s/p ureteral stent insertion by Dr. Irvin on 04/25/18. Patient developed Atrial fibrillation today, nonsymptomatic currently. Plan: Neuro: Alert and oriented x3 Cardiovascular: Currently in Atrial fibrillation with rate in 130s, Cardiology Dr. Alex consulted, help appreciated On Cardizem drip Digoxin 0.25mg IV x2 given Cardizem 5mg IVPx1 given Lopressor 2.5mg IVPx2 given Started on Heparin drip NS @250cc/hr IV ECHO: Left ventricle systolic function is normal. EF 65-70%. Transmitral doppler flow pattern is Grade I-abnormal relaxation pattern. Trace aortic regurgitation. Moderate pulmonary HTN. VQ scan ordered. Pulmonary: VQ scan ordered Saturating well on RA GI: Hepatosplenomegaly with portal HTN and portosystemic varices CT abdomen: 1. Right perinephric reaction is appreciated with mild to moderate right hydroureteronephrosis potentially on the basis of distal right ureteral stricture, lucent calculus or expelled calculus. No radiodense urolithiasis identified bilaterally including urinary bladder. Left kidney appears unremarkable. 2. Prominent carrie hepatis with extensive upper abdominal varices and splenomegaly suspicious for pattern blood flow. No gross pattern of hepatic cirrhosis. Cryptogenic cirrhosis is a possibility. Clinically correlate further. 3. Large calculus within the gallbladder with the gallbladder otherwise unremarkable appearing. CT abdomen 1. 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 Persistent mild right hydronephrosis and mild diffuse dilatation of the right ureteral with surrounding inflammatory changes without evidence for obstructing stones. Pyelonephritis/distal ureteral stricture is a consideration. Apparent mild mural thickening of the urinary bladder wall could also be related to cystitis. Please correlate with urine analysis. 3. No other significant interval change. Abdomen US: Normal splenic vein not well delineated on this study. Prominent varices noted surrounding the splenic vein. Clinical correlation. Dilated portal vein with increased velocity noted in the portal vein. Portal vein flow appears turbulent. Prominent varices are noted at the level of the carrie hepatis. Clinical correlation. Enlarged liver measuring 24.7 centimeters. Nodular and cirrhotic contour. Increased echogenicity of the hepatic parenchymal cortex suggestive for hepatic parenchymal disease versus fatty infiltration. Clinical correlation. Cholelithiasis. Gallbladder wall thickness measures 2.6 millimeters. Negative sonographic Hidalgo's sign. Spleen is markedly enlarged measuring up to 20 centimeters length. Increased echogenicity of the bilateral renal parenchymal cortices suggestive for medical renal disease. Small right pleural effusion. Abdomen US limited: Turbulent flow within the splenic vein without evidence of gross thrombus. Clinical correlation. Turbulent flow within the portal vein without gross thrombus. Patent flow in the hepatic veins. Right pleural effusion noted.Pancreas not well visualized. Pepcid 20mg PO daily Propranolol 10mg PO BID Dr. Méndez consulted, help appreciated As per GI note, unclear if splenomegaly and portal HTN are from thrombi or from underlying cirrhosis. Recommended beta sanjuanita for variceal prophylaxis and work up for causes of chronic liver disease. Hep panel negative Renal s/p right ureteral stent with Dr. Irvin on 04/25/[address] Irvin consulted, help appreciated Strict I&Os BUN/Cr 47/2.0 Endo: maintain euglycemia Heme/Onc: Hx of myelofibrosis with chronic leukocytosis Dr. Mcbride consulted, help appreciated White count 31.4 H/H 9.9/29.9 Platelets 64 ID UA 1+ leuk esterase positive for nitrates Primaxin 500mg IV Dr. Jackson consulted, help appreciated Initial Blood Cultures negative, repeat blood cultures prelim negative Urine culture multiple species Nares MRSA not detected PPX: SCDs, Pepcid Case discussed with Dr. Gale.
[2018-04-28] MEDS ORDERED: Metoprolol 1 mg/ml Inj IVP ONE ×2 (13:30→15:06)
[2018-04-28] MEDS ORDERED: Sodium Chloride 0.9% 1,000 ML IV ONE (13:56)
[2018-04-28] MEDS ORDERED: Sodium Chloride 0.9% 250 ML IV ONE (14:01)
[2018-04-28 17:10] LABS: INR 1.5
[2018-04-28 17:17] LABS: CALCIUM 8.4 mg/dl (8.6-10.4)
--- NOTE | 2018-04-28 18:23 | CP.PCM.CON ---
<Kerri Smith E - Last Filed: 04/28/18 18:55> History of Present Illness - History of Present Illness History of Present Illness: Cardiology consult note ( Dr. Alex's service) CC: Cardiology consult for Atrial fibrillation, new onset HPI: Patient is a 67 year old female with past medical history hypertension, myelofibrosis, chronic leukocytosis on treatment for myelofibrosis currently on treatment with hematology and oncology, Rae Jalloh, who was admitted from right flank pain and found to have a R Hydronephrosis and now s/p R ureteral stent. Cardiology consult was placed for new onset of atrial fibrillation. Patient admits to chest pain, palpitations and mild shortness of breath. Patient denies any cardiac history. Hematology/ Oncology: Dr. Mcbride PMHx: hypertension, myelofibrosis, chronic leukocytosis PSHx: Denies FHx:Denies any cardiac history Medication: On chemotherapy with Dr. Mcbride Allergies: NKDA Social Hx: Denies tobacco, alcohol, and illicit drug use Review of Systems - Constitutional Constitutional: absent: Chills, Fever - EENT Eyes: absent: Blurred Vision, Change in Vision Ears: absent: Dizziness - Cardiovascular Cardiovascular: Chest Pain, Dyspnea, Irregular Heart Rhythm, Palpitations - Respiratory Respiratory: Dyspnea - Gastrointestinal Gastrointestinal: absent: Nausea, Vomiting - Neurological Neurological: absent: Dizziness Past Patient History - Infectious Disease Hx of Infectious Diseases: None - Past Medical History & Family History Past Medical History?: Yes - Past Social History Smoking Status: Never Smoked - CARDIAC Hx Hypertension: Yes - PULMONARY Hx Respiratory Disorders: No - NEUROLOGICAL Hx Neurological Disorder: No - HEENT Hx HEENT Problems: No - RENAL Hx Chronic Kidney Disease: No - ENDOCRINE/METABOLIC Hx Endocrine Disorders: No - HEMATOLOGICAL/ONCOLOGICAL Other/Comment: Myelofibrosis - INTEGUMENTARY Hx Dermatological Problems: No - MUSCULOSKELETAL/RHEUMATOLOGICAL Hx Arthritis: Yes - GASTROINTESTINAL Hx Gastrointestinal Disorders: No - GENITOURINARY/GYNECOLOGICAL Hx Genitourinary Disorders: No - PSYCHIATRIC Hx Substance Use: No - SURGICAL HISTORY Hx Surgeries: No - ANESTHESIA Hx Anesthesia: No Meds Allergies/Adverse Reactions: Allergies Allergy/AdvReac Type Severity Reaction Status Date / Time No Known Allergies Allergy Verified 04/23/18 07:41 - Medications Medications: Current Medications Acetaminophen (Tylenol 325mg Tab) 650 mg PO Q6 PRN PRN Reason: Pain, Mild (1-3) Last Admin: 04/28/18 12:09 Dose: 650 mg Famotidine (Pepcid) 20 mg PO DAILY [facility] Last Admin: 04/28/18 09:50 Dose: 20 mg Imipenem/Cilastatin Sodium 500 (mg/ Sodium Chloride) 100 mls @ 100 mls/hr IVPB Q12H NAN PRN Reason: Protocol Last Admin: 04/28/18 08:00 Dose: 100 mls/hr Diltiazem HCl 125 mg/ Dextrose 125 mls @ 5 mls/hr IV .Q24H NAN; 5 MG/HR PRN Reason: Protocol Last Admin: 04/28/18 12:35 Dose: 5 mg/hr, 5 mls/hr Heparin Sodium/Sodium Chloride (Heparin 97628 Units/250ml 1/2 Normal Saline) 25 ,000 units in 250 mls @ 4.452 mls/hr IV .Q24H PRN; Protocol; 6 UNITS/KG/HR PRN Reason: PROTOCOL Potassium Chloride (Potassium Chloride 20 Meq/100 Ml) 20 meq in 100 mls @ 50 mls/hr IVPB ONCE ONE Stop: 04/28/18 20:11 Potassium Chloride (Klor-Con 10) 10 meq PO BRK NAN Propranolol HCl (Inderal) 10 mg PO BID [facility] Last Admin: 04/28/18 09:49 Dose: 10 mg Physical Exam - Constitutional Appears: No Acute Distress - Head Exam Head Exam: ATRAUMATIC - Eye Exam Eye Exam: EOMI - ENT Exam ENT Exam: Mucous Membranes Moist - Respiratory Exam Respiratory Exam: NORMAL BREATHING PATTERN - Cardiovascular Exam Cardiovascular Exam: Tachycardia, Irregular Rhythm, +S1, +S2 - GI/Abdominal Exam GI & Abdominal Exam: Normal Bowel Sounds, Soft - Extremities Exam Extremities exam: Positive for: normal inspection. Negative for: calf tenderness, pedal edema - Neurological Exam Neurological exam: Alert, Oriented x3 Results - Vital Signs Recent Vital Signs: Last Vital Signs Temp 98.2 F 04/28/18 16:00 Pulse 81 04/28/18 04:00 Resp 22 04/28/18 04:00 BP 110/70 04/28/18 09:49 Pulse Ox 93 L 04/28/18 04:00 - Labs Result Diagrams: 04/28/18 06:19 04/28/18 16:55 Labs: Laboratory Results - last 24 hr 04/28/18 04/28/18 04/28/18 06:16 06:18 06:18 WBC RBC Hgb Hct MCV MCH MCHC RDW Plt Count MPV Neut % (Auto) Lymph % (Auto) [place] % (Auto) Eos % (Auto) Baso % (Auto) Neut # (Auto) Lymph # (Auto) [place] # (Auto) Eos # (Auto) Baso # (Auto) Neutrophils % (Manual) Band Neutrophils % Lymphocytes % (Manual) Monocytes % (Manual) Eosinophils % (Manual) Metamyelocytes % Myelocytes % Nucleated RBC % Toxic Granulation Platelet Estimate Large Platelets Giant Platelets Polychromasia Hypochromasia (manual) Poikilocytosis (manual Anisocytosis (manual) Ovalocytes PT INR APTT Sodium 141 Potassium 3.8 Chloride 107 Carbon Dioxide 23 Anion Gap 15 BUN 47 H Creatinine 2.0 H Est GFR ( Amer) 30 Est GFR (Non-Af Amer) 25 Random Glucose 98 Lactic Acid 0.8 Calcium 8.1 L Phosphorus 2.8 Magnesium 1.7 Total Bilirubin 0.7 AST 22 ALT 27 Alkaline Phosphatase 35 L Troponin I Total Protein 5.9 L Albumin 2.9 L Globulin 3.0 Albumin/Globulin Ratio 1.0 Alpha Fetoprotein TSH 3rd Generation TRACEY 6 Profile Negative Hepatitis A IgM Ab Hep Bs Antigen Hep Bs Antibody Hep B Core IgM Ab Negative Hepatitis C Antibody 04/28/18 04/28/18 04/28/18 06:18 06:18 06:18 WBC RBC Hgb Hct MCV MCH MCHC RDW Plt Count MPV Neut % (Auto) Lymph % (Auto) [place] % (Auto) Eos % (Auto) Baso % (Auto) Neut # (Auto) Lymph # (Auto) [place] # (Auto) Eos # (Auto) Baso # (Auto) Neutrophils % (Manual) Band Neutrophils % Lymphocytes % (Manual) Monocytes % (Manual) Eosinophils % (Manual) Metamyelocytes % Myelocytes % Nucleated RBC % Toxic Granulation Platelet Estimate Large Platelets Giant Platelets Polychromasia Hypochromasia (manual) Poikilocytosis (manual Anisocytosis (manual) Ovalocytes PT INR APTT Sodium Potassium Chloride Carbon Dioxide Anion Gap BUN Creatinine Est GFR ( Amer) Est GFR (Non-Af Amer) Random Glucose Lactic Acid Calcium Phosphorus Magnesium Total Bilirubin AST ALT Alkaline Phosphatase Troponin I Total Protein Albumin Globulin Albumin/Globulin Ratio Alpha Fetoprotein < 0.8 TSH 3rd Generation TRACEY 6 Profile Hepatitis A IgM Ab Negative Hep Bs Antigen Negative Hep Bs Antibody Negative Hep B Core IgM Ab Negative Hepatitis C Antibody Negative 04/28/18 04/28/18 04/28/18 06:19 16:55 16:55 WBC 31.7 H RBC 3.38 L Hgb 9.9 L Hct 29.9 L MCV 88.3 MCH 29.3 MCHC 33.2 RDW 18.7 H Plt Count 64 L MPV 12.9 H Neut % (Auto) 85.0 H Lymph % (Auto) 1.9 L [place] % (Auto) 10.3 H Eos % (Auto) 2.3 Baso % (Auto) 0.5 Neut # (Auto) 26.9 H Lymph # (Auto) 0.6 L [place] # (Auto) 3.3 H Eos # (Auto) 0.7 Baso # (Auto) 0.1 Neutrophils % (Manual) 71 Band Neutrophils % 9 H Lymphocytes % (Manual) 1 L Monocytes % (Manual) 14 H Eosinophils % (Manual) 2 Metamyelocytes % 2 H Myelocytes % 1 H Nucleated RBC % 1 H Toxic Granulation Present Platelet Estimate Decreased L Large Platelets Present Giant Platelets Present Polychromasia Slight Hypochromasia (manual) Slight Poikilocytosis (manual Slight Anisocytosis (manual) Moderate Ovalocytes Slight PT INR APTT Sodium 141 Potassium 3.5 L Chloride 106 Carbon Dioxide 23 Anion Gap 15 BUN 46 H Creatinine 2.0 H Est GFR ( Amer) 30 Est GFR (Non-Af Amer) 25 Random Glucose 98 Lactic Acid Calcium 8.4 L Phosphorus 2.4 L Magnesium 1.7 Total Bilirubin 0.6 AST 22 ALT 27 Alkaline Phosphatase 42 Troponin I 0.0360 Total Protein 5.8 L Albumin 3.0 L Globulin 2.9 Albumin/Globulin Ratio 1.0 Alpha Fetoprotein TSH 3rd Generation 0.53 TRACEY 6 Profile Hepatitis A IgM Ab Hep Bs Antigen Hep Bs Antibody Hep B Core IgM Ab Hepatitis C Antibody 04/28/18 16:55 WBC RBC Hgb Hct MCV MCH MCHC RDW Plt Count MPV Neut % (Auto) Lymph % (Auto) [place] % (Auto) Eos % (Auto) Baso % (Auto) Neut # (Auto) Lymph # (Auto) [place] # (Auto) Eos # (Auto) Baso # (Auto) Neutrophils % (Manual) Band Neutrophils % Lymphocytes % (Manual) Monocytes % (Manual) Eosinophils % (Manual) Metamyelocytes % Myelocytes % Nucleated RBC % Toxic Granulation Platelet Estimate Large Platelets Giant Platelets Polychromasia Hypochromasia (manual) Poikilocytosis (manual Anisocytosis (manual) Ovalocytes PT 16.0 H INR 1.5 APTT 30 Sodium Potassium Chloride Carbon Dioxide Anion Gap BUN Creatinine Est GFR ( Amer) Est GFR (Non-Af Amer) Random Glucose Lactic Acid Calcium Phosphorus Magnesium Total Bilirubin AST ALT Alkaline Phosphatase Troponin I Total Protein Albumin Globulin Albumin/Globulin Ratio Alpha Fetoprotein TSH 3rd Generation TRACEY 6 Profile Hepatitis A IgM Ab Hep Bs Antigen Hep Bs Antibody Hep B Core IgM Ab Hepatitis C Antibody Assessment & Plan (1) Atrial fibrillation, new onset Assessment and Plan: Patient is a 67 year old female with past medical history hypertension, myelofibrosis, chronic leukocytosis on treatment for myelofibrosis currently on treatment with hematology and oncology, Rae Jalloh, who was admitted from right flank pain and found to have a R Hydronephrosis and now s/p R ureteral stent. Cardiology consult was placed for new onset of atrial fibrillation with rapid ventricular response: 1. Rule out PE, F/u V/Q scan 2. NS @ 250mls bolus to correct hypotension to eliminate reflex tachycardia due to hypotension 3. Digoxin 0.25mg IV once X2 4. Heparin drip 5. If V/Q scan is negative for PE, plans for possible YANI and cardioversion Status: Acute (2) Elevated brain natriuretic peptide (BNP) level Assessment and Plan: BNP: 15,300 Echocardiogram (04/26/18): LV function is normal. EF (65-70%). Trace aortic regurgitation and moderate pulmonary hypertension Status: Acute (3) Hepatosplenomegaly Assessment and Plan: Abdominal/ Pelvis without contrast: . Prominent carrie hepatis with extensive upper abdominal varices and splenomegaly suspicious for pattern blood flow. No gross pattern of hepatic cirrhosis. Cryptogenic cirrhosis is a possibility. Clinically correlate further. As per GI, Dr. Méndez: it is not clear whether the splenomegaly and portal HTN are from thrombosi or perhaps from underlying cirrhosis. Will start on beta sanjuanita for variceal prophylaxis, and work up for causes of chronic liver disease. Medication for variceal ppx: * Propranolol 10mg PO BID Status: Acute (4) Hydronephrosis, right Assessment and Plan: Abdominal/ Pelvis without contrast: Right perinephric reaction is appreciated with mild to moderate right hydroureteronephrosis potentially on the basis of distal right ureteral stricture, lucent calculus or expelled calculus. No radiodense urolithiasis identified bilaterally including urinary bladder. Left kidney appears unremarkable. S/P ureteral stent (04/25/18) Status: Acute (5) Pyelonephritis due to Escherichia coli Assessment and Plan: Primaxin 500mg IV Q12H Status: Acute (6) Prophylactic measure Assessment and Plan: DVT: Heparin drip Cardiology consult for new onset of atrial fibrillation: if V/Q scan is negative , plans for possible YANI with cardioversion All plans and management discussed with Dr. Alex Status: Acute <Alber Alex - Last Filed: 04/28/18 21:32> Meds - Medications Medications: Current Medications Acetaminophen (Tylenol 325mg Tab) 650 mg PO Q6 PRN PRN Reason: Pain, Mild (1-3) Last Admin: 04/28/18 12:09 Dose: 650 mg Famotidine (Pepcid) 20 mg PO DAILY [facility] Last Admin: 04/28/18 09:50 Dose: 20 mg Imipenem/Cilastatin Sodium 500 (mg/ Sodium Chloride) 100 mls @ 100 mls/hr IVPB Q12H NAN PRN Reason: Protocol Last Admin: 04/28/18 20:30 Dose: 100 mls/hr Diltiazem HCl 125 mg/ Dextrose 125 mls @ 5 mls/hr IV .Q24H NAN; 5 MG/HR PRN Reason: Protocol Last Titration: 04/28/18 14:00 Dose: 7.5 mg/hr, 7.5 mls/hr Heparin Sodium/Sodium Chloride (Heparin 21364 Units/250ml 1/2 Normal Saline) 25 ,000 units in 250 mls @ 4.452 mls/hr IV .Q24H PRN; Protocol; 6 UNITS/KG/HR PRN Reason: PROTOCOL Last Admin: 04/28/18 17:00 Dose: 6 units/kg/hr, 4.452 mls/hr Potassium Chloride (Klor-Con 10) 10 meq PO BRK NAN Last Admin: 04/28/18 18:50 Dose: 10 meq Propranolol HCl (Inderal) 10 mg PO BID [facility] Last Admin: 04/28/18 18:50 Dose: 10 mg Results - Vital Signs Recent Vital Signs: Last Vital Signs Temp 96.6 F L 04/28/18 20:00 Pulse 89 04/28/18 20:00 Resp 26 H 04/28/18 20:00 BP 94/63 L 04/28/18 20:00 Pulse Ox 95 04/28/18 20:00 - Labs Result Diagrams: 04/28/18 06:19 04/28/18 16:55 Labs: Laboratory Results - last 24 hr 04/28/18 04/28/18 04/28/18 06:16 06:18 06:18 WBC RBC Hgb Hct MCV MCH MCHC RDW Plt Count MPV Neut % (Auto) Lymph % (Auto) [place] % (Auto) Eos % (Auto) Baso % (Auto) Neut # (Auto) Lymph # (Auto) [place] # (Auto) Eos # (Auto) Baso # (Auto) Neutrophils % (Manual) Band Neutrophils % Lymphocytes % (Manual) Monocytes % (Manual) Eosinophils % (Manual) Metamyelocytes % Myelocytes % Nucleated RBC % Toxic Granulation Platelet Estimate Large Platelets Giant Platelets Polychromasia Hypochromasia (manual) Poikilocytosis (manual Anisocytosis (manual) Ovalocytes PT INR APTT Sodium 141 Potassium 3.8 Chloride 107 Carbon Dioxide 23 Anion Gap 15 BUN 47 H Creatinine 2.0 H Est GFR ( Amer) 30 Est GFR (Non-Af Amer) 25 Random Glucose 98 Lactic Acid 0.8 Calcium 8.1 L Phosphorus 2.8 Magnesium 1.7 Total Bilirubin 0.7 AST 22 ALT 27 Alkaline Phosphatase 35 L Troponin I Total Protein 5.9 L Albumin 2.9 L Globulin 3.0 Albumin/Globulin Ratio 1.0 Alpha Fetoprotein TSH 3rd Generation TRACEY 6 Profile Negative Hepatitis A IgM Ab Hep Bs Antigen Hep Bs Antibody Hep B Core IgM Ab Negative Hepatitis C Antibody 04/28/18 04/28/18 04/28/18 06:18 06:18 06:18 WBC RBC Hgb Hct MCV MCH MCHC RDW Plt Count MPV Neut % (Auto) Lymph % (Auto) [place] % (Auto) Eos % (Auto) Baso % (Auto) Neut # (Auto) Lymph # (Auto) [place] # (Auto) Eos # (Auto) Baso # (Auto) Neutrophils % (Manual) Band Neutrophils % Lymphocytes % (Manual) Monocytes % (Manual) Eosinophils % (Manual) Metamyelocytes % Myelocytes % Nucleated RBC % Toxic Granulation Platelet Estimate Large Platelets Giant Platelets Polychromasia Hypochromasia (manual) Poikilocytosis (manual Anisocytosis (manual) Ovalocytes PT INR APTT Sodium Potassium Chloride Carbon Dioxide Anion Gap BUN Creatinine Est GFR ( Amer) Est GFR (Non-Af Amer) Random Glucose Lactic Acid Calcium Phosphorus Magnesium Total Bilirubin AST ALT Alkaline Phosphatase Troponin I Total Protein Albumin Globulin Albumin/Globulin Ratio Alpha Fetoprotein < 0.8 TSH 3rd Generation TRACEY 6 Profile Hepatitis A IgM Ab Negative Hep Bs Antigen Negative Hep Bs Antibody Negative Hep B Core IgM Ab Negative Hepatitis C Antibody Negative 04/28/18 04/28/18 04/28/18 06:19 16:55 16:55 WBC 31.7 H RBC 3.38 L Hgb 9.9 L Hct 29.9 L MCV 88.3 MCH 29.3 MCHC 33.2 RDW 18.7 H Plt Count 64 L MPV 12.9 H Neut % (Auto) 85.0 H Lymph % (Auto) 1.9 L [place] % (Auto) 10.3 H Eos % (Auto) 2.3 Baso % (Auto) 0.5 Neut # (Auto) 26.9 H Lymph # (Auto) 0.6 L [place] # (Auto) 3.3 H Eos # (Auto) 0.7 Baso # (Auto) 0.1 Neutrophils % (Manual) 71 Band Neutrophils % 9 H Lymphocytes % (Manual) 1 L Monocytes % (Manual) 14 H Eosinophils % (Manual) 2 Metamyelocytes % 2 H Myelocytes % 1 H Nucleated RBC % 1 H Toxic Granulation Present Platelet Estimate Decreased L Large Platelets Present Giant Platelets Present Polychromasia Slight Hypochromasia (manual) Slight Poikilocytosis (manual Slight Anisocytosis (manual) Moderate Ovalocytes Slight PT INR APTT Sodium 141 Potassium 3.5 L Chloride 106 Carbon Dioxide 23 Anion Gap 15 BUN 46 H Creatinine 2.0 H Est GFR ( Amer) 30 Est GFR (Non-Af Amer) 25 Random Glucose 98 Lactic Acid Calcium 8.4 L Phosphorus 2.4 L Magnesium 1.7 Total Bilirubin 0.6 AST 22 ALT 27 Alkaline Phosphatase 42 Troponin I 0.0360 Total Protein 5.8 L Albumin 3.0 L Globulin 2.9 Albumin/Globulin Ratio 1.0 Alpha Fetoprotein TSH 3rd Generation 0.53 TRACEY 6 Profile Hepatitis A IgM Ab Hep Bs Antigen Hep Bs Antibody Hep B Core IgM Ab Hepatitis C Antibody 04/28/18 16:55 WBC RBC Hgb Hct MCV MCH MCHC RDW Plt Count MPV Neut % (Auto) Lymph % (Auto) [place] % (Auto) Eos % (Auto) Baso % (Auto) Neut # (Auto) Lymph # (Auto) [place] # (Auto) Eos # (Auto) Baso # (Auto) Neutrophils % (Manual) Band Neutrophils % Lymphocytes % (Manual) Monocytes % (Manual) Eosinophils % (Manual) Metamyelocytes % Myelocytes % Nucleated RBC % Toxic Granulation Platelet Estimate Large Platelets Giant Platelets Polychromasia Hypochromasia (manual) Poikilocytosis (manual Anisocytosis (manual) Ovalocytes PT 16.0 H INR 1.5 APTT 30 Sodium Potassium Chloride Carbon Dioxide Anion Gap BUN Creatinine Est GFR ( Amer) Est GFR (Non-Af Amer) Random Glucose Lactic Acid Calcium Phosphorus Magnesium Total Bilirubin AST ALT Alkaline Phosphatase Troponin I Total Protein Albumin Globulin Albumin/Globulin Ratio Alpha Fetoprotein TSH 3rd Generation TRACEY 6 Profile Hepatitis A IgM Ab Hep Bs Antigen Hep Bs Antibody Hep B Core IgM Ab Hepatitis C Antibody Assessment & Plan - Assessment and Plan (Free Text) Assessment: Patient seen and evaluated personally by oh Plan of care d/w the resident and as documented
[2018-04-28] MEDS: Potassium Chloride 10 mEq ER Tab PO SCH (18:50)
--- NOTE | 2018-04-28 19:10 | CP.PCM.PN ---
Subjective - Date & Time of Evaluation Date of Evaluation: 04/28/18 Time of Evaluation: 12:45 - Subjective Subjective: clinically same Objective - Vital Signs/Intake and Output Vital Signs (last 24 hours): Temp Pulse Resp BP Pulse Ox 98.2 F 81 22 110/70 93 L 04/28/18 16:00 04/28/18 04:00 04/28/18 04:00 04/28/18 09:49 04/28/18 04:00 Intake and Output: 04/28/18 04/29/18 18:59 06:59 Intake Total 762.5 Balance 762.5 - Medications Medications: Current Medications Acetaminophen (Tylenol 325mg Tab) 650 mg PO Q6 PRN PRN Reason: Pain, Mild (1-3) Last Admin: 04/28/18 12:09 Dose: 650 mg Famotidine (Pepcid) 20 mg PO DAILY [facility] Last Admin: 04/28/18 09:50 Dose: 20 mg Imipenem/Cilastatin Sodium 500 (mg/ Sodium Chloride) 100 mls @ 100 mls/hr IVPB Q12H NAN PRN Reason: Protocol Last Admin: 04/28/18 08:00 Dose: 100 mls/hr Diltiazem HCl 125 mg/ Dextrose 125 mls @ 5 mls/hr IV .Q24H NAN; 5 MG/HR PRN Reason: Protocol Last Titration: 04/28/18 14:00 Dose: 7.5 mg/hr, 7.5 mls/hr Heparin Sodium/Sodium Chloride (Heparin 71813 Units/250ml 1/2 Normal Saline) 25 ,000 units in 250 mls @ 4.452 mls/hr IV .Q24H PRN; Protocol; 6 UNITS/KG/HR PRN Reason: PROTOCOL Last Admin: 04/28/18 17:00 Dose: 6 units/kg/hr, 4.452 mls/hr Potassium Chloride (Potassium Chloride 20 Meq/100 Ml) 20 meq in 100 mls @ 50 mls/hr IVPB ONCE ONE Stop: 04/28/18 20:11 Last Admin: 04/28/18 18:50 Dose: 50 mls/hr Potassium Chloride (Klor-Con 10) 10 meq PO BRK NAN Last Admin: 04/28/18 18:50 Dose: 10 meq Propranolol HCl (Inderal) 10 mg PO BID NAN Last Admin: 04/28/18 18:50 Dose: 10 mg - Labs Labs: 04/28/18 06:19 04/28/18 16:55 PT 16.0 SECONDS (9.7-12.2) H 04/28/18 16:55 INR 1.5 04/28/18 16:55 APTT 30 SECONDS (21-34) 04/28/18 16:55 - Constitutional Appears: Well - Head Exam Head Exam: ATRAUMATIC, NORMAL INSPECTION, NORMOCEPHALIC - Eye Exam Eye Exam: EOMI, Normal appearance, PERRL Pupil Exam: NORMAL ACCOMODATION, PERRL - ENT Exam ENT Exam: Mucous Membranes Moist, Normal Exam - Neck Exam Neck Exam: Full ROM, Normal Inspection. absent: Lymphadenopathy - Respiratory Exam Respiratory Exam: Decreased Breath Sounds - Cardiovascular Exam Cardiovascular Exam: REGULAR RHYTHM, +S1, +S2 - GI/Abdominal Exam GI & Abdominal Exam: Soft, Diminished Bowel Sounds - Rectal Exam Rectal Exam: Deferred
--- NOTE | 2018-04-28 22:12 | CP.PCM.PN ---
Subjective - Date & Time of Evaluation Date of Evaluation: 04/28/18 Time of Evaluation: 19:00 - Subjective Subjective: Had palpitations, noted to be in afib started on heparin drip Objective - Vital Signs/Intake and Output Vital Signs (last 24 hours): Temp Pulse Resp BP Pulse Ox 96.6 F L 89 26 H 94/63 L 95 04/28/18 20:00 04/28/18 20:00 04/28/18 20:00 04/28/18 20:00 04/28/18 20:00 Intake and Output: 04/28/18 04/29/18 18:59 06:59 Intake Total 1001.9 123.8 Output Total 250 250 Balance 751.9 -126.2 - Medications Medications: Current Medications Acetaminophen (Tylenol 325mg Tab) 650 mg PO Q6 PRN PRN Reason: Pain, Mild (1-3) Last Admin: 04/28/18 12:09 Dose: 650 mg Famotidine (Pepcid) 20 mg PO DAILY [facility] Last Admin: 04/28/18 09:50 Dose: 20 mg Imipenem/Cilastatin Sodium 500 (mg/ Sodium Chloride) 100 mls @ 100 mls/hr IVPB Q12H NAN PRN Reason: Protocol Last Admin: 04/28/18 20:30 Dose: 100 mls/hr Diltiazem HCl 125 mg/ Dextrose 125 mls @ 5 mls/hr IV .Q24H NAN; 5 MG/HR PRN Reason: Protocol Last Titration: 04/28/18 14:00 Dose: 7.5 mg/hr, 7.5 mls/hr Heparin Sodium/Sodium Chloride (Heparin 18981 Units/250ml 1/2 Normal Saline) 25 ,000 units in 250 mls @ 4.452 mls/hr IV .Q24H PRN; Protocol; 6 UNITS/KG/HR PRN Reason: PROTOCOL Last Admin: 04/28/18 17:00 Dose: 6 units/kg/hr, 4.452 mls/hr Potassium Chloride (Klor-Con 10) 10 meq PO BRK [facility] Last Admin: 04/28/18 18:50 Dose: 10 meq Propranolol HCl (Inderal) 10 mg PO BID [facility] Last Admin: 04/28/18 18:50 Dose: 10 mg - Labs Labs: 04/28/18 06:19 04/28/18 16:55 PT 16.0 SECONDS (9.7-12.2) H 04/28/18 16:55 INR 1.5 04/28/18 16:55 APTT 30 SECONDS (21-34) 04/28/18 16:55 - Head Exam Head Exam: ATRAUMATIC - Eye Exam Eye Exam: Normal appearance - ENT Exam ENT Exam: Mucous Membranes Dry - Respiratory Exam Respiratory Exam: NORMAL BREATHING PATTERN - Cardiovascular Exam Cardiovascular Exam: +S1, +S2 - GI/Abdominal Exam GI & Abdominal Exam: Normal Bowel Sounds Assessment and Plan (1) Leucocytosis Assessment & Plan: at baseline for myelofibrosis on antibiotics Status: Acute (2) Thrombocytopenia Assessment & Plan: improving sepsis related slow to improve due to myelofibrosis okay to use heparin drip Status: Acute (3) Hepatosplenomegaly Assessment & Plan: myelofibrosis rule out cirrhosis, rule out splenic vein thrombus on heparin drip Status: Acute (4) 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
[2018-04-29] MEDS ORDERED: Heparin25000 units/250ml 1/2NS 25,000 UNITS/250 ML BAG IV PRN (01:15)
[2018-04-29 07:13] LABS: BASO # 0.2 K/uL (0.0-0.2); BASO % 0.5 % (0.0-2.0); EOS # 0.9 K/uL (0.0-0.7); EOS % 2.4 % (0.0-4.0); HEMOGLOBIN 9.9 g/dL (11.0-16.0); LYMPH # 0.9 K/uL (1.0-4.3); LYMPH % 2.3 % (20.0-40.0); MEAN CELL VOLUME 89.6 fL (81.0-99.0); MEAN CORPUSCULAR HEMOGLOBIN 28.2 pg (27.0-31.0); MEAN CORPUSCULAR HGB CONC 31.5 g/dL (33.0-37.0); MEAN PLATELET VOLUME 13.3 fL (7.2-11.7); MONO # 4.2 K/uL (0.0-0.8); MONO % 11.2 % (0.0-10.0); NEUT # 31.7 K/uL (1.8-7.0); NEUT % 83.6 % (50.0-75.0); NRBC % 0.1 % (0.0-2.0); PLATELET COUNT 73 K/uL (130-400); RBC 3.53 Mil/uL (3.80-5.20); RED CELL DISTRIBUTION WIDTH 18.7 % (11.5-14.5)
[2018-04-29 07:20] LABS: WHITE BLOOD COUNT 37.9 K/uL (4.8-10.8)
[2018-04-29 08:15] LABS: ALBUMIN 2.8 g/dL (3.5-5.0); CALCIUM 8.3 mg/dl (8.6-10.4)
[2018-04-29 08:50] LABS: BANDS 7 % (0-2); EOSINOPHIL 4 % (0-4); LYMPHOCYTE 2 % (20-40); METAMYELOCYTE 6 % (0-0); MONOCYTE 12 % (0-10); MYELOCYTE 4 % (0-0); NEUTROPHIL 65 % (50-75); NUCLEATED RED BLOOD CELL 3 % (0-0); PLATELET ESTIMATE DECREASED (NORMAL); TOTAL CELLS COUNTED 100
[2018-04-29 08:51] LABS: ANISOCYTOSIS SLIGHT; HYPOCHROMIC SLIGHT
[2018-04-29 08:52] LABS: LARGE PLATELETS PRESENT; OVALOCYTES SLIGHT; POLYCHROMIC SLIGHT
[2018-04-29] MEDS: Potassium Chloride 10 mEq ER Tab PO SCH (08:52)
--- NOTE | 2018-04-29 11:29 | NM ---
Date of service: 04/28/2018 COMPARISON: April 28, 2018. Single-view chest TECHNIQUE: 6.0 mCi technetium 99-m Xe-133 Gas. 3.9 mCI technetium 99-m MAA administered intravenously. FINDINGS: VENTILATION COMPONENT: Mildly heterogeneous ventilation consistent with findings on concurrent chest x-ray. PERFUSION COMPONENT: Heterogeneous distribution of radionuclide. No geographic, segmental, lobar abnormalities apparent on the present examination. IMPRESSION: Low probability ventilation perfusion scan for pulmonary embolism. Concordant results (preliminary interpretation) provided by [facility]. Procedure Completed: 18:02 Preliminary ([facility]) Report: Dictated and Authenticated: 19:05. Final Interpretation: 11:22. April 29, 2018.
--- NOTE | 2018-04-29 13:02 | CP.PCM.PN ---
Subjective - Date & Time of Evaluation Date of Evaluation: 04/29/18 Time of Evaluation: 12:45 - Subjective Subjective: clinically same Objective - Vital Signs/Intake and Output Vital Signs (last 24 hours): Temp Pulse Resp BP Pulse Ox 97.9 F 98 H 22 93/50 L 95 04/29/18 08:00 04/29/18 11:00 04/29/18 11:00 04/29/18 12:02 04/29/18 11:00 Intake and Output: 04/29/18 04/29/18 06:59 18:59 Intake Total 490.3 406.4 Output Total 650 200 Balance -159.7 206.4 - Medications Medications: Current Medications Acetaminophen (Tylenol 325mg Tab) 650 mg PO Q6 PRN PRN Reason: Pain, Mild (1-3) Last Admin: 04/28/18 12:09 Dose: 650 mg Famotidine (Pepcid) 20 mg PO DAILY [facility] Last Admin: 04/29/18 09:00 Dose: 20 mg Furosemide (Lasix) 20 mg PO BID [facility] Last Admin: 04/29/18 12:02 Dose: 20 mg Imipenem/Cilastatin Sodium 500 (mg/ Sodium Chloride) 100 mls @ 100 mls/hr IVPB Q12H NAN PRN Reason: Protocol Last Admin: 04/29/18 08:48 Dose: 100 mls/hr Diltiazem HCl 125 mg/ Dextrose 125 mls @ 5 mls/hr IV .Q24H NAN; 5 MG/HR PRN Reason: Protocol Last Admin: 04/29/18 02:41 Dose: 7.5 mg/hr, 7.5 mls/hr Heparin Sodium/Sodium Chloride (Heparin 65978 Units/250ml 1/2 Normal Saline) 25 ,000 units in 250 mls @ 5.937 mls/hr IV .Q24H PRN; Protocol; 8 UNITS/KG/HR PRN Reason: PROTOCOL Last Admin: 04/29/18 01:20 Dose: 8 units/kg/hr, 5.937 mls/hr Potassium Chloride (Klor-Con 10) 10 meq PO BRK [facility] Last Admin: 04/29/18 08:52 Dose: 10 meq Propranolol HCl (Inderal) 10 mg PO BID [facility] Last Admin: 04/29/18 09:00 Dose: 10 mg - Labs Labs: 04/29/18 07:10 09/11/18 07:10 PT 16.0 SECONDS (9.7-12.2) H 04/28/18 16:55 INR 1.5 04/28/18 16:55 APTT 40 SECONDS (21-34) H 04/29/18 07:10 - Constitutional Appears: Well - Head Exam Head Exam: ATRAUMATIC, NORMAL INSPECTION, NORMOCEPHALIC - Eye Exam Eye Exam: EOMI, Normal appearance, PERRL Pupil Exam: NORMAL ACCOMODATION, PERRL - ENT Exam ENT Exam: Mucous Membranes Moist, Normal Exam - Neck Exam Neck Exam: Full ROM, Normal Inspection. absent: Lymphadenopathy - Respiratory Exam Respiratory Exam: Decreased Breath Sounds - Cardiovascular Exam Cardiovascular Exam: REGULAR RHYTHM, +S1, +S2 - GI/Abdominal Exam GI & Abdominal Exam: Soft, Diminished Bowel Sounds - Rectal Exam Rectal Exam: Deferred
--- NOTE | 2018-04-29 13:04 | RAD ---
HISTORY: PICC line insertion COMPARISON: Chest x-ray performed 04/27/18 TECHNIQUE: Chest, one view. FINDINGS: Distal tip of the right-sided PICC extends to the SVC. Examination limited by habitus. LUNGS: Moderate pulmonary venous congestion. Please note that chest x-ray has limited sensitivity for the detection of pulmonary masses. PLEURA: Trace fluid in the right fissure. No definite pneumothorax . CARDIOVASCULAR: Cardiomegaly. Ectatic aorta. OSSEOUS STRUCTURES: Degenerative changes. VISUALIZED UPPER ABDOMEN: Unremarkable. OTHER FINDINGS: None. IMPRESSION: Right-sided PICC. Moderate pulmonary venous congestion. Cardiomegaly. Ectatic aorta.
--- NOTE | 2018-04-29 13:04 | CP.PCM.PN ---
Subjective - Date & Time of Evaluation Date of Evaluation: 04/29/18 Time of Evaluation: 12:00 - Subjective Subjective: Feels tired. Objective - Vital Signs/Intake and Output Vital Signs (last 24 hours): Temp Pulse Resp BP Pulse Ox 97.9 F 98 H 22 93/50 L 95 04/29/18 08:00 04/29/18 11:00 04/29/18 11:00 04/29/18 12:02 04/29/18 11:00 Intake and Output: 04/29/18 04/29/18 06:59 18:59 Intake Total 490.3 406.4 Output Total 650 200 Balance -159.7 206.4 - Medications Medications: Current Medications Acetaminophen (Tylenol 325mg Tab) 650 mg PO Q6 PRN PRN Reason: Pain, Mild (1-3) Last Admin: 04/28/18 12:09 Dose: 650 mg Famotidine (Pepcid) 20 mg PO DAILY [facility] Last Admin: 04/29/18 09:00 Dose: 20 mg Furosemide (Lasix) 20 mg PO BID [facility] Last Admin: 04/29/18 12:02 Dose: 20 mg Imipenem/Cilastatin Sodium 500 (mg/ Sodium Chloride) 100 mls @ 100 mls/hr IVPB Q12H NAN PRN Reason: Protocol Last Admin: 04/29/18 08:48 Dose: 100 mls/hr Diltiazem HCl 125 mg/ Dextrose 125 mls @ 5 mls/hr IV .Q24H NAN; 5 MG/HR PRN Reason: Protocol Last Admin: 04/29/18 02:41 Dose: 7.5 mg/hr, 7.5 mls/hr Heparin Sodium/Sodium Chloride (Heparin 78793 Units/250ml 1/2 Normal Saline) 25 ,000 units in 250 mls @ 5.937 mls/hr IV .Q24H PRN; Protocol; 8 UNITS/KG/HR PRN Reason: PROTOCOL Last Admin: 04/29/18 01:20 Dose: 8 units/kg/hr, 5.937 mls/hr Potassium Chloride (Klor-Con 10) 10 meq PO BRK [facility] Last Admin: 04/29/18 08:52 Dose: 10 meq Propranolol HCl (Inderal) 10 mg PO BID [facility] Last Admin: 04/29/18 09:00 Dose: 10 mg - Labs Labs: 04/29/18 07:10 04/29/18 07:10 PT 16.0 SECONDS (9.7-12.2) H 04/28/18 16:55 INR 1.5 04/28/18 16:55 APTT 40 SECONDS (21-34) H 04/29/18 07:10 - Head Exam Head Exam: ATRAUMATIC - Eye Exam Eye Exam: Normal appearance - ENT Exam ENT Exam: Mucous Membranes Dry - Respiratory Exam Respiratory Exam: NORMAL BREATHING PATTERN - Cardiovascular Exam Cardiovascular Exam: +S1, +S2 - GI/Abdominal Exam GI & Abdominal Exam: Normal Bowel Sounds Assessment and Plan (1) Leucocytosis Assessment & Plan: at baseline for myelofibrosis on antibiotics Status: Acute (2) Thrombocytopenia Assessment & Plan: improving sepsis related slow to improve due to myelofibrosis okay to use heparin drip Status: Acute (3) Hepatosplenomegaly Assessment & Plan: myelofibrosis rule out cirrhosis, rule out splenic vein thrombus on heparin drip Status: Acute (4) 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
--- NOTE | 2018-04-29 15:03 | CP.CCUPN ---
<Sydni Arellano - Last Filed: 04/29/18 15:07> CCU Subjective - Physician Review Subjective (Free Text): ICU Progress note Patient seen and examined at bedside. She currently denies chest pain, shortness of breath, headache, dizziness, abdominal pain, nausea, vomiting, flank pain, leg pain. She continues to be in A fib intermittently. CCU Objective - Vital Signs / Intake & Output Vital Signs (Last 4 hours): Vital Signs Pulse Resp BP Pulse Ox 04/29/18 14:30 103 H 24 96 04/29/18 14:21 115 H 39 H 128/57 L 94 L 04/29/18 14:00 120 H 29 H 95 04/29/18 13:50 102 H 31 H 118/76 93 L 04/29/18 13:30 101 H 26 H 92 L 04/29/18 13:19 129 H 15 115/66 95 04/29/18 13:00 121 H 13 92 L 04/29/18 12:50 94 H 24 110/59 L 97 04/29/18 12:30 94 H 23 96 04/29/18 12:19 109 H 22 80/56 L 95 04/29/18 12:02 91 H 33 H 93/59 L 97 04/29/18 11:49 99 H 25 H 96/57 L 95 04/29/18 11:30 90 18 97 04/29/18 11:19 85 21 97 Intake and Output (Last 8hrs): Intake & Output 04/29/18 04/29/18 04/29/18 06:59 14:59 22:59 Intake Total 222.7 436.2 Output Total 200 200 Balance 22.7 236.2 Weight 166 lb 0.3 oz Intake: IV 120 Intake, IV Amount 102.7 216.2 R PICC 100 Right Forearm 42.7 56.2 Right PICC 60.0 60.0 Oral 220 Output: Urine 200 200 Urine, Voided 200 200 Other: # Voids Urine, Voided 1 # Bowel Movements 0 0 - Physical Exam Head: Positive for: Atraumatic, Normocephalic Extroacular Muscles: Positive for: EOMI Mouth: Positive for: Moist Mucous Membranes Respiratory/Chest: Positive for: Good Air Exchange, Rales (fine rales at bases bilaterally). Negative for: Respiratory Distress Cardiovascular: Positive for: Irregular Rhythm, Tachycardic (Irregularly irregular with rate fluctuating occasionally going up to 120s) Abdomen: Positive for: Other (Enlarged liver palpable). Negative for: Tenderness, Distention, Guarding Back: Positive for: Other. Negative for: CVA Tenderness Upper Extremity: Positive for: Edema (minimal bilateral lower extremity edema), NORMAL PULSES, Capillary Refill < 2s Lower Extremity: Positive for: NORMAL PULSES. Negative for: Edema, CALF TENDERNESS Neurological: Positive for: GCS=15, CN II-XII Intact Skin: Positive for: Warm, Dry, Normal Color Psychiatric: Positive for: Alert, Oriented x 3 - Medications Active Medications: Active Medications Generic Name Dose Route Start Last Admin Trade Name Freq PRN Reason Stop Dose Admin Acetaminophen 650 mg 04/26/18 17:00 04/28/18 12:09 Tylenol 325mg Tab PO 650 mg Q6 PRN Administration Pain, Mild (1-3) Famotidine 20 mg 04/27/18 10:00 04/29/18 09:00 Pepcid PO 20 mg DAILY NAN Administration Furosemide 20 mg 04/29/18 10:15 04/29/18 12:02 Lasix PO 20 mg BID NAN Administration Imipenem/Cilastatin Sodium 500 100 mls @ 100 mls/hr 04/24/18 20:30 04/29/18 08:48 mg/ Sodium Chloride IVPB 100 mls/hr Q12H NAN Administration Protocol Diltiazem HCl 125 mg/ Dextrose 125 mls @ 5 mls/hr 04/28/18 12:15 04/29/18 02: 41 IV 7.5 mg/hr .Q24H NAN 7.5 mls/hr Protocol Administration 5 MG/HR Heparin Sodium/Sodium Chloride 25,000 units in 250 mls @ 5.937 mls/hr 01:15 04/29/18 01:20 Heparin 37403 Units/250ml 1/2 Normal Saline IV 8 units/kg/hr .Q24H PRN 5.937 mls/hr PROTOCOL Administration Protocol 8 UNITS/KG/HR Potassium Chloride 10 meq 04/28/18 18:15 04/29/18 08:52 Klor-Con 10 PO 10 meq BRK NAN Administration Propranolol HCl 10 mg 04/27/18 18:00 04/29/18 09:00 Inderal PO 10 mg BID NAN Administration - Patient Studies Lab Studies: Microbiology Studies 04/25/18 21:53 Blood Culture - Preliminary Blood-Venous NO GROWTH AFTER 3 DAYS 04/25/18 20:00 Blood Culture - Preliminary Blood-Venous NO GROWTH AFTER 3 DAYS 04/27/18 Unknown MRSA Culture (Admit) - Final Naris MRSA NOT DETECTED Lab Studies 04/29/18 04/29/18 04/29/18 Range/Units 10:26 07:10 07:10 WBC (4.8-10.8) K/uL RBC (3.80-5.20) Mil/uL Hgb (11.0-16.0) g/dL Hct (34.0-47.0) % MCV (81.0-99.0) fL MCH (27.0-31.0) pg MCHC (33.0-37.0) g/dL RDW (11.5-14.5) % Plt Count (130-400) K/uL MPV (7.2-11.7) fL Neut % (Auto) (50.0-75.0) % Lymph % (Auto) (20.0-40.0) % Ford % (Auto) (0.0-10.0) % Eos % (Auto) (0.0-4.0) % Baso % (Auto) (0.0-2.0) % Neut # (Auto) (1.8-7.0) K/uL Lymph # (Auto) (1.0-4.3) K/uL Ford # (Auto) (0.0-0.8) K/uL Eos # (Auto) (0.0-0.7) K/uL Baso # (Auto) (0.0-0.2) K/uL Neutrophils % (Manual) (50-75) % Band Neutrophils % (0-2) % Lymphocytes % (Manual) (20-40) % Monocytes % (Manual) (0-10) % Eosinophils % (Manual) (0-4) % Metamyelocytes % (0-0) % Myelocytes % (0-0) % Nucleated RBC % (0-0) % Platelet Estimate (NORMAL) Large Platelets Polychromasia Hypochromasia (manual) Anisocytosis (manual) Ovalocytes PT (9.7-12.2) SECONDS INR APTT 40 H (21-34) SECONDS D-Dimer, Quantitative 431 H (0-243) ng/mlDDU Sodium 141 (132-148) mmol/L Potassium 3.7 (3.6-5.2) mmol/L Chloride 107 (98-107) mmol/L Carbon Dioxide 23 (22-30) mmol/L Anion Gap 14 (10-20) BUN 42 H (7-17) mg/dL Creatinine 2.2 H (0.7-1.2) mg/dL Est GFR ( Amer) 27 Est GFR (Non-Af Amer) 22 Random Glucose 104 (65-105) mg/dL Calcium 8.3 L (8.6-10.4) mg/dl Phosphorus 2.1 L (2.5-4.5) mg/dL Magnesium 1.7 (1.6-2.3) mg/dL Total Bilirubin 0.5 (0.2-1.3) mg/dL AST 9 L D (14-36) U/L ALT 26 (9-52) U/L Alkaline Phosphatase 44 (38-126) U/L Troponin I (0.00-0.120) ng/mL Total Protein 5.5 L (6.3-8.3) g/dL Albumin 2.8 L (3.5-5.0) g/dL Globulin 2.7 (2.2-3.9) gm/dL Albumin/Globulin Ratio 1.0 (1.0-2.1) TSH 3rd Generation (0.46-4.68) mIU/L TRACEY 6 Profile (NEGATIVE) Anti-Smooth Muscle Ab (Negative) 04/29/18 04/28/18 04/28/18 Range/Units 07:10 23:27 16:55 WBC 37.9 H* (4.8-10.8) K/uL RBC 3.53 L (3.80-5.20) Mil/uL Hgb 9.9 L (11.0-16.0) g/dL Hct 31.6 L (34.0-47.0) % MCV 89.6 (81.0-99.0) fL MCH 28.2 (27.0-31.0) pg MCHC 31.5 L (33.0-37.0) g/dL RDW 18.7 H (11.5-14.5) % Plt Count 73 L (130-400) K/uL MPV 13.3 H (7.2-11.7) fL Neut % (Auto) 83.6 H (50.0-75.0) % Lymph % (Auto) 2.3 L (20.0-40.0) % Ford % (Auto) 11.2 H (0.0-10.0) % Eos % (Auto) 2.4 (0.0-4.0) % Baso % (Auto) 0.5 (0.0-2.0) % Neut # (Auto) 31.7 H (1.8-7.0) K/uL Lymph # (Auto) 0.9 L (1.0-4.3) K/uL Ford # (Auto) 4.2 H (0.0-0.8) K/uL Eos # (Auto) 0.9 H (0.0-0.7) K/uL Baso # (Auto) 0.2 (0.0-0.2) K/uL Neutrophils % (Manual) 65 (50-75) % Band Neutrophils % 7 H (0-2) % Lymphocytes % (Manual) 2 L (20-40) % Monocytes % (Manual) 12 H (0-10) % Eosinophils % (Manual) 4 (0-4) % Metamyelocytes % 6 H (0-0) % Myelocytes % 4 H (0-0) % Nucleated RBC % 3 H (0-0) % Platelet Estimate Decreased L (NORMAL) Large Platelets Present Polychromasia Slight Hypochromasia (manual) Slight Anisocytosis (manual) Slight Ovalocytes Slight PT 16.0 H (9.7-12.2) SECONDS INR 1.5 APTT 37 H D 30 (21-34) SECONDS D-Dimer, Quantitative (0-243) ng/mlDDU Sodium (132-148) mmol/L Potassium (3.6-5.2) mmol/L Chloride (98-107) mmol/L Carbon Dioxide (22-30) mmol/L Anion Gap (10-20) BUN (7-17) mg/dL Creatinine (0.7-1.2) mg/dL Est GFR ( Amer) Est GFR (Non-Af Amer) Random Glucose (65-105) mg/dL Calcium (8.6-10.4) mg/dl Phosphorus (2.5-4.5) mg/dL Magnesium (1.6-2.3) mg/dL Total Bilirubin (0.2-1.3) mg/dL AST (14-36) U/L ALT (9-52) U/L Alkaline Phosphatase (38-126) U/L Troponin I (0.00-0.120) ng/mL Total Protein (6.3-8.3) g/dL Albumin (3.5-5.0) g/dL Globulin (2.2-3.9) gm/dL Albumin/Globulin Ratio (1.0-2.1) TSH 3rd Generation (0.46-4.68) mIU/L TRACEY 6 Profile (NEGATIVE) Anti-Smooth Muscle Ab (Negative) 04/28/18 04/28/18 04/28/18 Range/Units 16:55 16:55 06:18 WBC (4.8-10.8) K/uL RBC (3.80-5.20) Mil/uL Hgb (11.0-16.0) g/dL Hct (34.0-47.0) % MCV (81.0-99.0) fL MCH (27.0-31.0) pg MCHC (33.0-37.0) g/dL RDW (11.5-14.5) % Plt Count (130-400) K/uL MPV (7.2-11.7) fL Neut % (Auto) (50.0-75.0) % Lymph % (Auto) (20.0-40.0) % Ford % (Auto) (0.0-10.0) % Eos % (Auto) (0.0-4.0) % Baso % (Auto) (0.0-2.0) % Neut # (Auto) (1.8-7.0) K/uL Lymph # (Auto) (1.0-4.3) K/uL Ford # (Auto) (0.0-0.8) K/uL Eos # (Auto) (0.0-0.7) K/uL Baso # (Auto) (0.0-0.2) K/uL Neutrophils % (Manual) (50-75) % Band Neutrophils % (0-2) % Lymphocytes % (Manual) (20-40) % Monocytes % (Manual) (0-10) % Eosinophils % (Manual) (0-4) % Metamyelocytes % (0-0) % Myelocytes % (0-0) % Nucleated RBC % (0-0) % Platelet Estimate (NORMAL) Large Platelets Polychromasia Hypochromasia (manual) Anisocytosis (manual) Ovalocytes PT (9.7-12.2) SECONDS INR APTT (21-34) SECONDS D-Dimer, Quantitative (0-243) ng/mlDDU Sodium 141 (132-148) mmol/L Potassium 3.5 L (3.6-5.2) mmol/L Chloride 106 (98-107) mmol/L Carbon Dioxide 23 (22-30) mmol/L Anion Gap 15 (10-20) BUN 46 H (7-17) mg/dL Creatinine 2.0 H (0.7-1.2) mg/dL Est GFR ( Amer) 30 Est GFR (Non-Af Amer) 25 Random Glucose 98 (65-105) mg/dL Calcium 8.4 L (8.6-10.4) mg/dl Phosphorus 2.4 L (2.5-4.5) mg/dL Magnesium 1.7 (1.6-2.3) mg/dL Total Bilirubin 0.6 (0.2-1.3) mg/dL AST 22 (14-36) U/L ALT 27 (9-52) U/L Alkaline Phosphatase 42 (38-126) U/L Troponin I 0.0360 (0.00-0.120) ng/mL Total Protein 5.8 L (6.3-8.3) g/dL Albumin 3.0 L (3.5-5.0) g/dL Globulin 2.9 (2.2-3.9) gm/dL Albumin/Globulin Ratio 1.0 (1.0-2.1) TSH 3rd Generation 0.53 (0.46-4.68) mIU/L TRACEY 6 Profile (NEGATIVE) Anti-Smooth Muscle Ab Negative (Negative) 04/28/18 Range/Units 06:18 WBC (4.8-10.8) K/uL RBC (3.80-5.20) Mil/uL Hgb (11.0-16.0) g/dL Hct (34.0-47.0) % MCV (81.0-99.0) fL MCH (27.0-31.0) pg MCHC (33.0-37.0) g/dL RDW (11.5-14.5) % Plt Count (130-400) K/uL MPV (7.2-11.7) fL Neut % (Auto) (50.0-75.0) % Lymph % (Auto) (20.0-40.0) % Ford % (Auto) (0.0-10.0) % Eos % (Auto) (0.0-4.0) % Baso % (Auto) (0.0-2.0) % Neut # (Auto) (1.8-7.0) K/uL Lymph # (Auto) (1.0-4.3) K/uL Ford # (Auto) (0.0-0.8) K/uL Eos # (Auto) (0.0-0.7) K/uL Baso # (Auto) (0.0-0.2) K/uL Neutrophils % (Manual) (50-75) % Band Neutrophils % (0-2) % Lymphocytes % (Manual) (20-40) % Monocytes % (Manual) (0-10) % Eosinophils % (Manual) (0-4) % Metamyelocytes % (0-0) % Myelocytes % (0-0) % Nucleated RBC % (0-0) % Platelet Estimate (NORMAL) Large Platelets Polychromasia Hypochromasia (manual) Anisocytosis (manual) Ovalocytes PT (9.7-12.2) SECONDS INR APTT (21-34) SECONDS D-Dimer, Quantitative (0-243) ng/mlDDU Sodium (132-148) mmol/L Potassium (3.6-5.2) mmol/L Chloride (98-107) mmol/L Carbon Dioxide (22-30) mmol/L Anion Gap (10-20) BUN (7-17) mg/dL Creatinine (0.7-1.2) mg/dL Est GFR ( Amer) Est GFR (Non-Af Amer) Random Glucose (65-105) mg/dL Calcium (8.6-10.4) mg/dl Phosphorus (2.5-4.5) mg/dL Magnesium (1.6-2.3) mg/dL Total Bilirubin (0.2-1.3) mg/dL AST (14-36) U/L ALT (9-52) U/L Alkaline Phosphatase (38-126) U/L Troponin I (0.00-0.120) ng/mL Total Protein (6.3-8.3) g/dL Albumin (3.5-5.0) g/dL Globulin (2.2-3.9) gm/dL Albumin/Globulin Ratio (1.0-2.1) TSH 3rd Generation (0.46-4.68) mIU/L TRACEY 6 Profile Negative (NEGATIVE) Anti-Smooth Muscle Ab (Negative) Laboratory Results - last 24 hr 04/28/18 04/28/18 04/28/18 06:18 06:18 16:55 WBC RBC Hgb Hct MCV MCH MCHC RDW Plt Count MPV Neut % (Auto) Lymph % (Auto) Ford % (Auto) Eos % (Auto) Baso % (Auto) Neut # (Auto) Lymph # (Auto) Ford # (Auto) Eos # (Auto) Baso # (Auto) Neutrophils % (Manual) Band Neutrophils % Lymphocytes % (Manual) Monocytes % (Manual) Eosinophils % (Manual) Metamyelocytes % Myelocytes % Nucleated RBC % Platelet Estimate Large Platelets Polychromasia Hypochromasia (manual) Anisocytosis (manual) Ovalocytes PT INR APTT D-Dimer, Quantitative Sodium 141 Potassium 3.5 L Chloride 106 Carbon Dioxide 23 Anion Gap 15 BUN 46 H Creatinine 2.0 H Est GFR ( Amer) 30 Est GFR (Non-Af Amer) 25 Random Glucose 98 Calcium 8.4 L Phosphorus 2.4 L Magnesium 1.7 Total Bilirubin 0.6 AST 22 ALT 27 Alkaline Phosphatase 42 Troponin I Total Protein 5.8 L Albumin 3.0 L Globulin 2.9 Albumin/Globulin Ratio 1.0 TSH 3rd Generation 0.53 TRACEY 6 Profile Negative Anti-Smooth Muscle Ab Negative 04/28/18 04/28/18 04/28/18 16:55 16:55 23:27 WBC RBC Hgb Hct MCV MCH MCHC RDW Plt Count MPV Neut % (Auto) Lymph % (Auto) Ford % (Auto) Eos % (Auto) Baso % (Auto) Neut # (Auto) Lymph # (Auto) Ford # (Auto) Eos # (Auto) Baso # (Auto) Neutrophils % (Manual) Band Neutrophils % Lymphocytes % (Manual) Monocytes % (Manual) Eosinophils % (Manual) Metamyelocytes % Myelocytes % Nucleated RBC % Platelet Estimate Large Platelets Polychromasia Hypochromasia (manual) Anisocytosis (manual) Ovalocytes PT 16.0 H INR 1.5 APTT 30 37 H D D-Dimer, Quantitative Sodium Potassium Chloride Carbon Dioxide Anion Gap BUN Creatinine Est GFR ( Amer) Est GFR (Non-Af Amer) Random Glucose Calcium Phosphorus Magnesium Total Bilirubin AST ALT Alkaline Phosphatase Troponin I 0.0360 Total Protein Albumin Globulin Albumin/Globulin Ratio TSH 3rd Generation TRACEY 6 Profile Anti-Smooth Muscle Ab 04/29/18 04/29/18 04/29/18 07:10 07:10 07:10 WBC 37.9 H* RBC 3.53 L Hgb 9.9 L Hct 31.6 L MCV 89.6 MCH 28.2 MCHC 31.5 L RDW 18.7 H Plt Count 73 L MPV 13.3 H Neut % (Auto) 83.6 H Lymph % (Auto) 2.3 L Ford % (Auto) 11.2 H Eos % (Auto) 2.4 Baso % (Auto) 0.5 Neut # (Auto) 31.7 H Lymph # (Auto) 0.9 L Ford # (Auto) 4.2 H Eos # (Auto) 0.9 H Baso # (Auto) 0.2 Neutrophils % (Manual) 65 Band Neutrophils % 7 H Lymphocytes % (Manual) 2 L Monocytes % (Manual) 12 H Eosinophils % (Manual) 4 Metamyelocytes % 6 H Myelocytes % 4 H Nucleated RBC % 3 H Platelet Estimate Decreased L Large Platelets Present Polychromasia Slight Hypochromasia (manual) Slight Anisocytosis (manual) Slight Ovalocytes Slight PT INR APTT 40 H D-Dimer, Quantitative Sodium 141 Potassium 3.7 Chloride 107 Carbon Dioxide 23 Anion Gap 14 BUN 42 H Creatinine 2.2 H Est GFR ( Amer) 27 Est GFR (Non-Af Amer) 22 Random Glucose 104 Calcium 8.3 L Phosphorus 2.1 L Magnesium 1.7 Total Bilirubin 0.5 AST 9 L D ALT 26 Alkaline Phosphatase 44 Troponin I Total Protein 5.5 L Albumin 2.8 L Globulin 2.7 Albumin/Globulin Ratio 1.0 TSH 3rd Generation TRACEY 6 Profile Anti-Smooth Muscle Ab 04/29/18 10:26 WBC RBC Hgb Hct MCV MCH MCHC RDW Plt Count MPV Neut % (Auto) Lymph % (Auto) Ford % (Auto) Eos % (Auto) Baso % (Auto) Neut # (Auto) Lymph # (Auto) Ford # (Auto) Eos # (Auto) Baso # (Auto) Neutrophils % (Manual) Band Neutrophils % Lymphocytes % (Manual) Monocytes % (Manual) Eosinophils % (Manual) Metamyelocytes % Myelocytes % Nucleated RBC % Platelet Estimate Large Platelets Polychromasia Hypochromasia (manual) Anisocytosis (manual) Ovalocytes PT INR APTT D-Dimer, Quantitative 431 H Sodium Potassium Chloride Carbon Dioxide Anion Gap BUN Creatinine Est GFR ( Amer) Est GFR (Non-Af Amer) Random Glucose Calcium Phosphorus Magnesium Total Bilirubin AST ALT Alkaline Phosphatase Troponin I Total Protein Albumin Globulin Albumin/Globulin Ratio TSH 3rd Generation TRACEY 6 Profile Anti-Smooth Muscle Ab Review of Systems - Constitutional Constitutional: absent: Fever, Chills - EENT Eyes: absent: Change in Vision - Cardiovascular Cardiovascular: absent: Chest Pain, Dyspnea - Respiratory Respiratory: absent: Cough, Dyspnea - Gastrointestinal Gastrointestinal: absent: Abdominal Pain, Nausea, Vomiting - Musculoskeletal Musculoskeletal: absent: Back Pain - Neurological Neurological: absent: Confusion, Dizziness - Psychiatric Psychiatric: absent: Anxiety, Depression Critical Care Progress Note - Nutrition Nutrition: Nutrition Category Date Time Status NPO Diet [DIET] Diets 04/30/18 Breakfast Active Regular Diet [DIET] Diets 04/25/18 Dinner Active Assessment/Plan - Assessment and Plan (Free Text) Assessment: 67 year old female with history of arthritis, HTN, myelofibrosis with chronic leukocytosis who was admitted for right flank pain following failed outpatient treatment of pyelonephritis. CT revealed right hydroureteronephrosis with ureteral stricture, and she is s/p ureteral stent insertion by Dr. Irvin on 04/25/18. Patient developed Atrial fibrillation, nonsymptomatic currently. Plan: Neuro: Alert and oriented x3 Cardiovascular: Currently in Atrial fibrillation with rate fluctuating Cardiology Dr. Alex consulted, help appreciated On Cardizem drip Started on Heparin drip ECHO: Left ventricle systolic function is normal. EF 65-70%. Transmitral doppler flow pattern is Grade I-abnormal relaxation pattern. Trace aortic regurgitation. Moderate pulmonary HTN. VQ scan Low probability for pulmonary embolism. CHADsVASC score [address] Plan for YANI and cardioversion tomorrow, keep NPO after midnight Pulmonary: Saturating well on RA CXR: right sided PICC line, Moderate pulmonary venous congestion. Cardiomegaly. Ectatic aorta. Lasix 20mg PO BID ordered. GI: Hepatosplenomegaly with portal HTN and portosystemic varices CT abdomen: 1. Right perinephric reaction is appreciated with mild to moderate right hydroureteronephrosis potentially on the basis of distal right ureteral stricture, lucent calculus or expelled calculus. No radiodense urolithiasis identified bilaterally including urinary bladder. Left kidney appears unremarkable. 2. Prominent carrie hepatis with extensive upper abdominal varices and splenomegaly suspicious for pattern blood flow. No gross pattern of hepatic cirrhosis. Cryptogenic cirrhosis is a possibility. Clinically correlate further. 3. Large calculus within the gallbladder with the gallbladder otherwise unremarkable appearing. CT abdomen 1. 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 Persistent mild right hydronephrosis and mild diffuse dilatation of the right ureteral with surrounding inflammatory changes without evidence for obstructing stones. Pyelonephritis/distal ureteral stricture is a consideration. Apparent mild mural thickening of the urinary bladder wall could also be related to cystitis. Please correlate with urine analysis. 3. No other significant interval change. Abdomen US: Normal splenic vein not well delineated on this study. Prominent varices noted surrounding the splenic vein. Clinical correlation. Dilated portal vein with increased velocity noted in the portal vein. Portal vein flow appears turbulent. Prominent varices are noted at the level of the carrie hepatis. Clinical correlation. Enlarged liver measuring 24.7 centimeters. Nodular and cirrhotic contour. Increased echogenicity of the hepatic parenchymal cortex suggestive for hepatic parenchymal disease versus fatty infiltration. Clinical correlation. Cholelithiasis. Gallbladder wall thickness measures 2.6 millimeters. Negative sonographic Hidalgo's sign. Spleen is markedly enlarged measuring up to 20 centimeters length. Increased echogenicity of the bilateral renal parenchymal cortices suggestive for medical renal disease. Small right pleural effusion. Abdomen US limited: Turbulent flow within the splenic vein without evidence of gross thrombus. Clinical correlation. Turbulent flow within the portal vein without gross thrombus. Patent flow in the hepatic veins. Right pleural effusion noted.Pancreas not well visualized. Pepcid 20mg PO daily Propranolol 10mg PO BID Dr. Méndez consulted, help appreciated As per GI note, unclear if splenomegaly and portal HTN are from thrombi or from underlying cirrhosis. Recommended beta sanjuanita for variceal prophylaxis and work up for causes of chronic liver disease. Hep panel negative Renal s/p right ureteral stent with Dr. Irvin on 04/25/[address] Irvin consulted, help appreciated Strict I&Os BUN/Cr 42/2.2 Endo: maintain euglycemia Heme/Onc: Hx of myelofibrosis with chronic leukocytosis Dr. Mcbride consulted, help appreciated White count 37.9 H/H 9.9/31.6 Platelets 74 ID UA 1+ leuk esterase positive for nitrates Primaxin 500mg IV Dr. Jackson consulted, help appreciated Initial Blood Cultures negative, repeat blood cultures prelim negative Urine culture multiple species Nares MRSA not detected PPX: SCDs, Pepcid Case discussed with Dr. Serna <Enmanuel Serna S - Last Filed: 04/29/18 18:33> CCU Subjective - Physician Review Critical Care Time Spent (in minutes): 35 CCU Objective - Vital Signs / Intake & Output Vital Signs (Last 4 hours): Vital Signs Pulse Resp BP Pulse Ox 04/29/18 18:22 111/63 04/29/18 17:19 131 H 39 H 124/81 97 04/29/18 17:00 120 H 41 H 97 04/29/18 16:52 138 H 28 H 129/80 97 04/29/18 16:00 88 21 96 04/29/18 15:49 100 H 21 99/51 L 98 04/29/18 15:30 98 H 34 H 92 L 04/29/18 15:20 103 H 15 105/54 L 93 L 04/29/18 15:00 100 H 28 H 97 04/29/18 14:49 87 19 115/55 L 100 Intake and Output (Last 8hrs): Intake & Output 04/29/18 04/29/18 04/29/18 06:59 14:59 22:59 Intake Total 222.7 436.2 172.7 Output Total 200 200 300 Balance 22.7 236.2 -127.3 Weight 166 lb 0.3 oz Intake: IV 120 125 Intake, IV Amount 102.7 216.2 47.7 R PICC 100 Right Forearm 42.7 56.2 25.2 Right PICC 60.0 60.0 22.5 Oral 220 Output: Urine 200 200 300 Urine, Voided 200 200 300 Other: # Voids Urine, Voided 1 # Bowel Movements 0 0 - Medications Active Medications: Active Medications Generic Name Dose Route Start Last Admin Trade Name Freq PRN Reason Stop Dose Admin Acetaminophen 650 mg 04/26/18 17:00 04/28/18 12:09 Tylenol 325mg Tab PO 650 mg Q6 PRN Administration Pain, Mild (1-3) Famotidine 20 mg 04/27/18 10:00 04/29/18 09:00 Pepcid PO 20 mg DAILY NAN Administration Furosemide 20 mg 04/29/18 10:15 04/29/18 18:22 Lasix PO 20 mg BID NAN Administration Imipenem/Cilastatin Sodium 500 100 mls @ 100 mls/hr 04/24/18 20:30 04/29/18 08:48 mg/ Sodium Chloride IVPB 100 mls/hr Q12H NAN Administration Protocol Diltiazem HCl 125 mg/ Dextrose 125 mls @ 5 mls/hr 04/28/18 12:15 04/29/18 18: 31 IV 7.5 mg/hr .Q24H NAN 7.5 mls/hr Protocol Administration 5 MG/HR Heparin Sodium/Sodium Chloride 25,000 units in 250 mls @ 7.531 mls/hr 16:20 04/29/18 16:30 Heparin 12369 Units/250ml 1/2 Normal Saline IV 12 units/kg/hr .Q24H PRN 9.037 mls/hr ADJUST RATE PER PROTOCOL Administration Protocol 10 UNITS/KG/HR Potassium Chloride 10 meq 04/28/18 18:15 04/29/18 08:52 Klor-Con 10 PO 10 meq BRK NAN Administration Propranolol HCl 10 mg 04/27/18 18:00 04/29/18 18:22 Inderal PO 10 mg BID NAN Administration - Patient Studies Lab Studies: Microbiology Studies 04/25/18 21:53 Blood Culture - Preliminary Blood-Venous NO GROWTH AFTER 3 DAYS 04/25/18 20:00 Blood Culture - Preliminary Blood-Venous NO GROWTH AFTER 3 DAYS Lab Studies 09/11/18 09/11/18 09/11/18 Range/Units 15:26 10:26 07:10 WBC (4.8-10.8) K/uL RBC (3.80-5.20) Mil/uL Hgb (11.0-16.0) g/dL Hct (34.0-47.0) % MCV (81.0-99.0) fL MCH (27.0-31.0) pg MCHC (33.0-37.0) g/dL RDW (11.5-14.5) % Plt Count (130-400) K/uL MPV (7.2-11.7) fL Neut % (Auto) (50.0-75.0) % Lymph % (Auto) (20.0-40.0) % Ford % (Auto) (0.0-10.0) % Eos % (Auto) (0.0-4.0) % Baso % (Auto) (0.0-2.0) % Neut # (Auto) (1.8-7.0) K/uL Lymph # (Auto) (1.0-4.3) K/uL Ford # (Auto) (0.0-0.8) K/uL Eos # (Auto) (0.0-0.7) K/uL Baso # (Auto) (0.0-0.2) K/uL Neutrophils % (Manual) (50-75) % Band Neutrophils % (0-2) % Lymphocytes % (Manual) (20-40) % Monocytes % (Manual) (0-10) % Eosinophils % (Manual) (0-4) % Metamyelocytes % (0-0) % Myelocytes % (0-0) % Nucleated RBC % (0-0) % Platelet Estimate (NORMAL) Large Platelets Polychromasia Hypochromasia (manual) Anisocytosis (manual) Ovalocytes APTT 40 H 40 H (21-34) SECONDS D-Dimer, Quantitative 431 H (0-243) ng/mlDDU Sodium (132-148) mmol/L Potassium (3.6-5.2) mmol/L Chloride (98-107) mmol/L Carbon Dioxide (22-30) mmol/L Anion Gap (10-20) BUN (7-17) mg/dL Creatinine (0.7-1.2) mg/dL Est GFR ( Amer) Est GFR (Non-Af Amer) Random Glucose (65-105) mg/dL Calcium (8.6-10.4) mg/dl Phosphorus (2.5-4.5) mg/dL Magnesium (1.6-2.3) mg/dL Total Bilirubin (0.2-1.3) mg/dL AST (14-36) U/L ALT (9-52) U/L Alkaline Phosphatase (38-126) U/L Total Protein (6.3-8.3) g/dL Albumin (3.5-5.0) g/dL Globulin (2.2-3.9) gm/dL Albumin/Globulin Ratio (1.0-2.1) Anti-Smooth Muscle Ab (Negative) 04/29/18 04/29/18 04/28/18 Range/Units 07:10 07:10 23:27 WBC 37.9 H* (4.8-10.8) K/uL RBC 3.53 L (3.80-5.20) Mil/uL Hgb 9.9 L (11.0-16.0) g/dL Hct 31.6 L (34.0-47.0) % MCV 89.6 (81.0-99.0) fL MCH 28.2 (27.0-31.0) pg MCHC 31.5 L (33.0-37.0) g/dL RDW 18.7 H (11.5-14.5) % Plt Count 73 L (130-400) K/uL MPV 13.3 H (7.2-11.7) fL Neut % (Auto) 83.6 H (50.0-75.0) % Lymph % (Auto) 2.3 L (20.0-40.0) % Ford % (Auto) 11.2 H (0.0-10.0) % Eos % (Auto) 2.4 (0.0-4.0) % Baso % (Auto) 0.5 (0.0-2.0) % Neut # (Auto) 31.7 H (1.8-7.0) K/uL Lymph # (Auto) 0.9 L (1.0-4.3) K/uL Ford # (Auto) 4.2 H (0.0-0.8) K/uL Eos # (Auto) 0.9 H (0.0-0.7) K/uL Baso # (Auto) 0.2 (0.0-0.2) K/uL Neutrophils % (Manual) 65 (50-75) % Band Neutrophils % 7 H (0-2) % Lymphocytes % (Manual) 2 L (20-40) % Monocytes % (Manual) 12 H (0-10) % Eosinophils % (Manual) 4 (0-4) % Metamyelocytes % 6 H (0-0) % Myelocytes % 4 H (0-0) % Nucleated RBC % 3 H (0-0) % Platelet Estimate Decreased L (NORMAL) Large Platelets Present Polychromasia Slight Hypochromasia (manual) Slight Anisocytosis (manual) Slight Ovalocytes Slight APTT 37 H D (21-34) SECONDS D-Dimer, Quantitative (0-243) ng/mlDDU Sodium 141 (132-148) mmol/L Potassium 3.7 (3.6-5.2) mmol/L Chloride 107 (98-107) mmol/L Carbon Dioxide 23 (22-30) mmol/L Anion Gap 14 (10-20) BUN 42 H (7-17) mg/dL Creatinine 2.2 H (0.7-1.2) mg/dL Est GFR ( Amer) 27 Est GFR (Non-Af Amer) 22 Random Glucose 104 (65-105) mg/dL Calcium 8.3 L (8.6-10.4) mg/dl Phosphorus 2.1 L (2.5-4.5) mg/dL Magnesium 1.7 (1.6-2.3) mg/dL Total Bilirubin 0.5 (0.2-1.3) mg/dL AST 9 L D (14-36) U/L ALT 26 (9-52) U/L Alkaline Phosphatase 44 (38-126) U/L Total Protein 5.5 L (6.3-8.3) g/dL Albumin 2.8 L (3.5-5.0) g/dL Globulin 2.7 (2.2-3.9) gm/dL Albumin/Globulin Ratio 1.0 (1.0-2.1) Anti-Smooth Muscle Ab (Negative) 04/28/18 Range/Units 06:18 WBC (4.8-10.8) K/uL RBC (3.80-5.20) Mil/uL Hgb (11.0-16.0) g/dL Hct (34.0-47.0) % MCV (81.0-99.0) fL MCH (27.0-31.0) pg MCHC (33.0-37.0) g/dL RDW (11.5-14.5) % Plt Count (130-400) K/uL MPV (7.2-11.7) fL Neut % (Auto) (50.0-75.0) % Lymph % (Auto) (20.0-40.0) % Ford % (Auto) (0.0-10.0) % Eos % (Auto) (0.0-4.0) % Baso % (Auto) (0.0-2.0) % Neut # (Auto) (1.8-7.0) K/uL Lymph # (Auto) (1.0-4.3) K/uL Ford # (Auto) (0.0-0.8) K/uL Eos # (Auto) (0.0-0.7) K/uL Baso # (Auto) (0.0-0.2) K/uL Neutrophils % (Manual) (50-75) % Band Neutrophils % (0-2) % Lymphocytes % (Manual) (20-40) % Monocytes % (Manual) (0-10) % Eosinophils % (Manual) (0-4) % Metamyelocytes % (0-0) % Myelocytes % (0-0) % Nucleated RBC % (0-0) % Platelet Estimate (NORMAL) Large Platelets Polychromasia Hypochromasia (manual) Anisocytosis (manual) Ovalocytes APTT (21-34) SECONDS D-Dimer, Quantitative (0-243) ng/mlDDU Sodium (132-148) mmol/L Potassium (3.6-5.2) mmol/L Chloride (98-107) mmol/L Carbon Dioxide (22-30) mmol/L Anion Gap (10-20) BUN (7-17) mg/dL Creatinine (0.7-1.2) mg/dL Est GFR ( Amer) Est GFR (Non-Af Amer) Random Glucose (65-105) mg/dL Calcium (8.6-10.4) mg/dl Phosphorus (2.5-4.5) mg/dL Magnesium (1.6-2.3) mg/dL Total Bilirubin (0.2-1.3) mg/dL AST (14-36) U/L ALT (9-52) U/L Alkaline Phosphatase (38-126) U/L Total Protein (6.3-8.3) g/dL Albumin (3.5-5.0) g/dL Globulin (2.2-3.9) gm/dL Albumin/Globulin Ratio (1.0-2.1) Anti-Smooth Muscle Ab Negative (Negative) Laboratory Results - last 24 hr 04/28/18 04/28/18 04/29/18 06:18 23:27 07:10 WBC 37.9 H* RBC 3.53 L Hgb 9.9 L Hct 31.6 L MCV 89.6 MCH 28.2 MCHC 31.5 L RDW 18.7 H Plt Count 73 L MPV 13.3 H Neut % (Auto) 83.6 H Lymph % (Auto) 2.3 L Ford % (Auto) 11.2 H Eos % (Auto) 2.4 Baso % (Auto) 0.5 Neut # (Auto) 31.7 H Lymph # (Auto) 0.9 L Ford # (Auto) 4.2 H Eos # (Auto) 0.9 H Baso # (Auto) 0.2 Neutrophils % (Manual) 65 Band Neutrophils % 7 H Lymphocytes % (Manual) 2 L Monocytes % (Manual) 12 H Eosinophils % (Manual) 4 Metamyelocytes % 6 H Myelocytes % 4 H Nucleated RBC % 3 H Platelet Estimate Decreased L Large Platelets Present Polychromasia Slight Hypochromasia (manual) Slight Anisocytosis (manual) Slight Ovalocytes Slight APTT 37 H D D-Dimer, Quantitative Sodium Potassium Chloride Carbon Dioxide Anion Gap BUN Creatinine Est GFR ( Amer) Est GFR (Non-Af Amer) Random Glucose Calcium Phosphorus Magnesium Total Bilirubin AST ALT Alkaline Phosphatase Total Protein Albumin Globulin Albumin/Globulin Ratio Anti-Smooth Muscle Ab Negative 04/29/18 04/29/18 04/29/18 07:10 07:10 10:26 WBC RBC Hgb Hct MCV MCH MCHC RDW Plt Count MPV Neut % (Auto) Lymph % (Auto) Ford % (Auto) Eos % (Auto) Baso % (Auto) Neut # (Auto) Lymph # (Auto) Ford # (Auto) Eos # (Auto) Baso # (Auto) Neutrophils % (Manual) Band Neutrophils % Lymphocytes % (Manual) Monocytes % (Manual) Eosinophils % (Manual) Metamyelocytes % Myelocytes % Nucleated RBC % Platelet Estimate Large Platelets Polychromasia Hypochromasia (manual) Anisocytosis (manual) Ovalocytes APTT 40 H D-Dimer, Quantitative 431 H Sodium 141 Potassium 3.7 Chloride 107 Carbon Dioxide 23 Anion Gap 14 BUN 42 H Creatinine 2.2 H Est GFR ( Amer) 27 Est GFR (Non-Af Amer) 22 Random Glucose 104 Calcium 8.3 L Phosphorus 2.1 L Magnesium 1.7 Total Bilirubin 0.5 AST 9 L D ALT 26 Alkaline Phosphatase 44 Total Protein 5.5 L Albumin 2.8 L Globulin 2.7 Albumin/Globulin Ratio 1.0 Anti-Smooth Muscle Ab 04/29/18 15:26 WBC RBC Hgb Hct MCV MCH MCHC RDW Plt Count MPV Neut % (Auto) Lymph % (Auto) Ford % (Auto) Eos % (Auto) Baso % (Auto) Neut # (Auto) Lymph # (Auto) Ford # (Auto) Eos # (Auto) Baso # (Auto) Neutrophils % (Manual) Band Neutrophils % Lymphocytes % (Manual) Monocytes % (Manual) Eosinophils % (Manual) Metamyelocytes % Myelocytes % Nucleated RBC % Platelet Estimate Large Platelets Polychromasia Hypochromasia (manual) Anisocytosis (manual) Ovalocytes APTT 40 H D-Dimer, Quantitative Sodium Potassium Chloride Carbon Dioxide Anion Gap BUN Creatinine Est GFR ( Amer) Est GFR (Non-Af Amer) Random Glucose Calcium Phosphorus Magnesium Total Bilirubin AST ALT Alkaline Phosphatase Total Protein Albumin Globulin Albumin/Globulin Ratio Anti-Smooth Muscle Ab Critical Care Progress Note - Nutrition Nutrition: Nutrition Category Date Time Status NPO Diet [DIET] Diets 04/30/18 Breakfast Active Regular Diet [DIET] Diets 04/25/18 Dinner Active Attending/Attestation - Attestation I have personally seen and examined this patient.: Yes I have fully participated in the care of the patient.: Yes I have reviewed all pertinent clinical information: Yes Notes (Text): 04/29/18 18:32 patient seen and examined in the intensive care unit. On Cardizem drip for A. fib Possible cardioversion and YANI tomorrow Continue anticoagulation Continue antibiotics for pyelonephritis echocardiogramNormal ejection fraction VQ scan with low probability Discontinue IV fluid
[2018-04-29] MEDS: Heparin25000 units/250ml 1/2NS 25,000 UNITS/250 ML BAG IV PRN (16:30)
--- NOTE | 2018-04-29 19:21 | CP.PCM.PN ---
<Kerri Smith - Last Filed: 04/29/18 19:18> Subjective - Date & Time of Evaluation Date of Evaluation: 04/29/18 Time of Evaluation: 08:30 - Subjective Subjective: Cardiology progress note (Dr. Alex's service) Patient was seen and examined at bedside. Patient was resting comfortably in bed in no acute distress. Patient admits to shortness of breath but denies chest pain and palpitations. Objective - Vital Signs/Intake and Output Vital Signs (last 24 hours): Temp Pulse Resp BP Pulse Ox 97.9 F 89 12 123/72 97 04/29/18 08:00 04/29/18 18:30 04/29/18 18:30 04/29/18 18:23 04/29/18 18:30 Intake and Output: 04/29/18 04/30/18 18:59 06:59 Intake Total 617.8 Output Total 500 Balance 117.8 - Medications Medications: Current Medications Acetaminophen (Tylenol 325mg Tab) 650 mg PO Q6 PRN PRN Reason: Pain, Mild (1-3) Last Admin: 04/28/18 12:09 Dose: 650 mg Famotidine (Pepcid) 20 mg PO DAILY NAN Last Admin: 04/29/18 09:00 Dose: 20 mg Furosemide (Lasix) 20 mg PO BID NAN Last Admin: 04/29/18 18:22 Dose: 20 mg Imipenem/Cilastatin Sodium 500 (mg/ Sodium Chloride) 100 mls @ 100 mls/hr IVPB Q12H NAN PRN Reason: Protocol Last Admin: 04/29/18 08:48 Dose: 100 mls/hr Diltiazem HCl 125 mg/ Dextrose 125 mls @ 5 mls/hr IV .Q24H NAN; 5 MG/HR PRN Reason: Protocol Last Admin: 04/29/18 18:31 Dose: 7.5 mg/hr, 7.5 mls/hr Heparin Sodium/Sodium Chloride (Heparin 33766 Units/250ml 1/2 Normal Saline) 25 ,000 units in 250 mls @ 7.531 mls/hr IV .Q24H PRN; Protocol; 10 UNITS/KG/HR PRN Reason: ADJUST RATE PER PROTOCOL Last Admin: 04/29/18 16:30 Dose: 12 units/kg/hr, 9.037 mls/hr Potassium Chloride (Klor-Con 10) 10 meq PO BRK [facility] Last Admin: 04/29/18 08:52 Dose: 10 meq Propranolol HCl (Inderal) 10 mg PO BID [facility] Last Admin: 04/29/18 18:22 Dose: 10 mg - Labs Labs: 04/29/18 07:10 04/29/18 07:10 PT 16.0 SECONDS (9.7-12.2) H 04/28/18 16:55 INR 1.5 04/28/18 16:55 APTT 40 SECONDS (21-34) H 04/29/18 15:26 - Constitutional Appears: Well, No Acute Distress - Head Exam Head Exam: ATRAUMATIC - Eye Exam Eye Exam: EOMI, Normal appearance - ENT Exam ENT Exam: Mucous Membranes Moist - Respiratory Exam Respiratory Exam: NORMAL BREATHING PATTERN. absent: Prolonged Expiratory Phase , Rhonchi, Wheezes, Respiratory Distress - Cardiovascular Exam Cardiovascular Exam: Irregular Rhythm, +S1, +S2 - GI/Abdominal Exam GI & Abdominal Exam: Soft, Normal Bowel Sounds. absent: Firm, Guarding, Rigid, Tenderness - Extremities Exam Extremities Exam: Normal Inspection. absent: Calf Tenderness, Pedal Edema - Neurological Exam Neurological Exam: Alert, Awake, Oriented x3 - Psychiatric Exam Psychiatric exam: Normal Affect - Skin Skin Exam: Normal Color Assessment and Plan (1) Atrial fibrillation, new onset Assessment & Plan: Patient is a 67 year old female with past medical history hypertension, myelofibrosis, chronic leukocytosis on treatment for myelofibrosis currently on treatment with hematology and oncology, Rae Jalloh, who was admitted from right flank pain and found to have a R Hydronephrosis and now s/p R ureteral stent. Cardiology consult was placed for new onset of atrial fibrillation with rapid ventricular response: Labs: - TSH: 0.53, WNL 1. Rule out PE, V/Q scan negative, D-Dimer is elevated (431), continuation with heparin drip 2. Rate controlled on Cardizem drip 125mg at 5mg/hr 3. V/Q scan is negative for PE, plans for possible YANI and cardioversion tomorrow 04/30/18 Status: Acute (2) Elevated brain natriuretic peptide (BNP) level Assessment & Plan: BNP: 15,300 Chest X-ray (04/29/18): Right-sided PICC. Moderate pulmonary venous congestion. Cardiomegaly. Ectatic aorta. Echocardiogram (04/26/18): LV function is normal. EF (65-70%). Trace aortic regurgitation and moderate pulmonary hypertension Lasix 20mg IV BID; gentle diuresis in light of SOFIA Status: Acute (3) Hepatosplenomegaly Assessment & Plan: Abdominal/ Pelvis without contrast: . Prominent carrie hepatis with extensive upper abdominal varices and splenomegaly suspicious for pattern blood flow. No gross pattern of hepatic cirrhosis. Cryptogenic cirrhosis is a possibility. Clinically correlate further. As per GI, Dr. Méndez: it is not clear whether the splenomegaly and portal HTN are from thrombosi or perhaps from underlying cirrhosis. Will start on beta sanjuanita for variceal prophylaxis, and work up for causes of chronic liver disease. Medication for variceal ppx: * Propranolol 10mg PO BID Status: Acute (4) Hydronephrosis, right Assessment & Plan: Abdominal/ Pelvis without contrast: Right perinephric reaction is appreciated with mild to moderate right hydroureteronephrosis potentially on the basis of distal right ureteral stricture, lucent calculus or expelled calculus. No radiodense urolithiasis identified bilaterally including urinary bladder. Left kidney appears unremarkable. S/P ureteral stent (04/25/18) Status: Acute (5) Pyelonephritis due to Escherichia coli Assessment & Plan: Primaxin 500mg IV Q12H Status: Acute (6) Prophylactic measure Assessment & Plan: DVT: Heparin drip Plans for YANI and cardioversion tomorrow All plans and management discussed with Dr. Alex Status: Acute <Alber Alex - Last Filed: 04/29/18 22:17> Objective - Vital Signs/Intake and Output Vital Signs (last 24 hours): Temp Pulse Resp BP Pulse Ox 97.9 F 84 25 H 115/58 L 98 04/29/18 08:00 04/29/18 21:19 04/29/18 21:19 04/29/18 21:19 04/29/18 21:19 Intake and Output: 04/29/18 04/30/18 18:59 06:59 Intake Total 617.8 146.7 Output Total 500 200 Balance 117.8 -53.3 - Medications Medications: Current Medications Acetaminophen (Tylenol 325mg Tab) 650 mg PO Q6 PRN PRN Reason: Pain, Mild (1-3) Last Admin: 04/28/18 12:09 Dose: 650 mg Famotidine (Pepcid) 20 mg PO DAILY [facility] Last Admin: 04/29/18 09:00 Dose: 20 mg Furosemide (Lasix) 20 mg PO BID [facility] Last Admin: 04/29/18 18:22 Dose: 20 mg Imipenem/Cilastatin Sodium 500 (mg/ Sodium Chloride) 100 mls @ 100 mls/hr IVPB Q12H NAN PRN Reason: Protocol Last Admin: 04/29/18 20:43 Dose: 100 mls/hr Diltiazem HCl 125 mg/ Dextrose 125 mls @ 5 mls/hr IV .Q24H NAN; 5 MG/HR PRN Reason: Protocol Last Titration: 04/29/18 19:25 Dose: 5 mg/hr, 5 mls/hr Heparin Sodium/Sodium Chloride (Heparin 11209 Units/250ml 1/2 Normal Saline) 25 ,000 units in 250 mls @ 7.531 mls/hr IV .Q24H PRN; Protocol; 10 UNITS/KG/HR PRN Reason: ADJUST RATE PER PROTOCOL Last Admin: 04/29/18 16:30 Dose: 12 units/kg/hr, 9.037 mls/hr Potassium Chloride (Klor-Con 10) 10 meq PO BRK [facility] Last Admin: 04/29/18 08:52 Dose: 10 meq Propranolol HCl (Inderal) 10 mg PO BID [facility] Last Admin: 04/29/18 18:22 Dose: 10 mg - Labs Labs: 04/29/18 07:10 04/29/18 07:10 PT 16.0 SECONDS (9.7-12.2) H 04/28/18 16:55 INR 1.5 04/28/18 16:55 APTT 40 SECONDS (21-34) H 04/29/18 15:26 Assessment and Plan - Assessment and Plan (Free Text) Assessment: Patient seen and evaluated personally by nj Plan of care d/w the certified medical coding specialist and as documented
--- NOTE | 2018-04-29 20:46 | CP.PCM.PN ---
Subjective - Date & Time of Evaluation Date of Evaluation: 04/29/18 Time of Evaluation: 20:42 - Subjective Subjective: INFECTIOUS DISEASE PROGRESS NOTES JANY PATTERSON MD, FACP ICU #5 04/29/2018 CHART REVIEWED PT EXAMINED CASE DISCUSSED CLINICALLY BETTER ON CARDEZEM DRIP FOR HER ATRIAL FIBRILLATION, ON AND OFF. FOR POSSIBLE YANI AND CARDIOVERSION TOMORROW ALL C/S ARE NEGATIVE DO FAR, HER WBC IS UP BUT NO FEVER AND SHE IS AWAKE AND ALERT Head: Positive for: Atraumatic, Normocephalic Extroacular Muscles: Positive for: EOMI Mouth: Positive for: Moist Mucous Membranes Respiratory/Chest: Positive for: Good Air Exchange, Rales (fine rales at bases bilaterally). Negative for: Respiratory Distress Cardiovascular: Positive for: Irregular Rhythm, Tachycardic (Irregularly irregular with rate fluctuating occasionally going up to 120s) Abdomen: Positive for: Other (Enlarged liver palpable). Negative for: Tenderness, Distention, Guarding Back: Positive for: Other. Negative for: CVA Tenderness Upper Extremity: Positive for: Edema (minimal bilateral lower extremity edema), NORMAL PULSES, Capillary Refill < 2s Lower Extremity: Positive for: NORMAL PULSES. Negative for: Edema, CALF TENDERNESS Neurological: Positive for: GCS=15, CN II-XII Intact Skin: Positive for: Warm, Dry, Normal Color Psychiatric: Positive for: Alert, Oriented x 3 CONTINUE PRESENT MANAGEMENT FRO ID POINT OF VIEW CALL ME FROM ID POINT OF VIEW FOR ANY ID/MED ISSUES. JANY PATTERSON MD, FACP Objective - Vital Signs/Intake and Output Vital Signs (last 24 hours): Temp Pulse Resp BP Pulse Ox 97.9 F 85 29 H 99/69 L 98 04/29/18 08:00 04/29/18 19:19 04/29/18 19:19 04/29/18 19:19 04/29/18 19:19 Intake and Output: 04/29/18 04/30/18 18:59 06:59 Intake Total 617.8 18.9 Output Total 500 Balance 117.8 18.9 - Medications Medications: Current Medications Acetaminophen (Tylenol 325mg Tab) 650 mg PO Q6 PRN PRN Reason: Pain, Mild (1-3) Last Admin: 04/28/18 12:09 Dose: 650 mg Famotidine (Pepcid) 20 mg PO DAILY NAN Last Admin: 04/29/18 09:00 Dose: 20 mg Furosemide (Lasix) 20 mg PO BID NAN Last Admin: 04/29/18 18:22 Dose: 20 mg Imipenem/Cilastatin Sodium 500 (mg/ Sodium Chloride) 100 mls @ 100 mls/hr IVPB Q12H NAN PRN Reason: Protocol Last Admin: 04/29/18 08:48 Dose: 100 mls/hr Diltiazem HCl 125 mg/ Dextrose 125 mls @ 5 mls/hr IV .Q24H NAN; 5 MG/HR PRN Reason: Protocol Last Titration: 04/29/18 19:25 Dose: 5 mg/hr, 5 mls/hr Heparin Sodium/Sodium Chloride (Heparin 03864 Units/250ml 1/2 Normal Saline) 25 ,000 units in 250 mls @ 7.531 mls/hr IV .Q24H PRN; Protocol; 10 UNITS/KG/HR PRN Reason: ADJUST RATE PER PROTOCOL Last Admin: 04/29/18 16:30 Dose: 12 units/kg/hr, 9.037 mls/hr Potassium Chloride (Klor-Con 10) 10 meq PO BRK [facility] Last Admin: 04/29/18 08:52 Dose: 10 meq Propranolol HCl (Inderal) 10 mg PO BID [facility] Last Admin: 04/29/18 18:22 Dose: 10 mg - Labs Labs: 04/29/18 07:10 04/29/18 07:10 PT 16.0 SECONDS (9.7-12.2) H 04/28/18 16:55 INR 1.5 04/28/18 16:55 APTT 40 SECONDS (21-34) H 04/29/18 15:26
--- NOTE | 2018-04-29 21:44 | CP.PCM.PN ---
Subjective - Date & Time of Evaluation Date of Evaluation: 04/29/18 Time of Evaluation: 21:43 - Subjective Subjective: Yesterday patient developed atrial fibrillation, chest now patient becomes sinus rhythm. She is feeling comfortable. No pain. She is also eating better, regular bowel movements, she wanted to go home today. Currently patient is on Cardizem drip. Heparin drip. Discussed with the oncologist. We will change the Cardizem to p.o. Also anticoagulation as p.o. If patient is clinically stable. We will discuss with the infectious disease for possible antibiotic usage. Neurosurgical follow-up. Discharge plan depending upon the status of the patient tomorrow I spoke to the patient's son in detail. Condition was explained to him in detail. As there is overall worsening medical status patient son is very upset. But explained to him in detail about the current problems. Objective - Vital Signs/Intake and Output Vital Signs (last 24 hours): Temp Pulse Resp BP Pulse Ox 97.9 F 84 25 H 115/58 L 98 04/29/18 08:00 04/29/18 21:19 04/29/18 21:19 04/29/18 21:19 04/29/18 21:19 Intake and Output: 04/29/18 04/30/18 18:59 06:59 Intake Total 617.8 146.7 Output Total 500 200 Balance 117.8 -53.3 - Medications Medications: Current Medications Acetaminophen (Tylenol 325mg Tab) 650 mg PO Q6 PRN PRN Reason: Pain, Mild (1-3) Last Admin: 04/28/18 12:09 Dose: 650 mg Famotidine (Pepcid) 20 mg PO DAILY NAN Last Admin: 04/29/18 09:00 Dose: 20 mg Furosemide (Lasix) 20 mg PO BID NAN Last Admin: 04/29/18 18:22 Dose: 20 mg Imipenem/Cilastatin Sodium 500 (mg/ Sodium Chloride) 100 mls @ 100 mls/hr IVPB Q12H NAN PRN Reason: Protocol Last Admin: 04/29/18 20:43 Dose: 100 mls/hr Diltiazem HCl 125 mg/ Dextrose 125 mls @ 5 mls/hr IV .Q24H NAN; 5 MG/HR PRN Reason: Protocol Last Titration: 04/29/18 19:25 Dose: 5 mg/hr, 5 mls/hr Heparin Sodium/Sodium Chloride (Heparin 87722 Units/250ml 1/2 Normal Saline) 25 ,000 units in 250 mls @ 7.531 mls/hr IV .Q24H PRN; Protocol; 10 UNITS/KG/HR PRN Reason: ADJUST RATE PER PROTOCOL Last Admin: 04/29/18 16:30 Dose: 12 units/kg/hr, 9.037 mls/hr Potassium Chloride (Klor-Con 10) 10 meq PO BRK [facility] Last Admin: 04/29/18 08:52 Dose: 10 meq Propranolol HCl (Inderal) 10 mg PO BID [facility] Last Admin: 04/29/18 18:22 Dose: 10 mg - Labs Labs: 04/29/18 07:10 04/29/18 07:10 PT 16.0 SECONDS (9.7-12.2) H 04/28/18 16:55 INR 1.5 04/28/18 16:55 APTT 40 SECONDS (21-34) H 04/29/18 15:26
[2018-04-30 07:39] LABS: BASO # 0.1 K/uL (0.0-0.2); BASO % 0.3 % (0.0-2.0); EOS % 2.4 % (0.0-4.0); HEMOGLOBIN 9.5 g/dL (11.0-16.0); LYMPH % 4.6 % (20.0-40.0); MEAN CELL VOLUME 89.5 fL (81.0-99.0); MEAN CORPUSCULAR HEMOGLOBIN 28.5 pg (27.0-31.0); MEAN CORPUSCULAR HGB CONC 31.8 g/dL (33.0-37.0); MEAN PLATELET VOLUME 12.2 fL (7.2-11.7); MONO % 11.4 % (0.0-10.0); NEUT # 35.4 K/uL (1.8-7.0); NEUT % 81.3 % (50.0-75.0); NRBC % 1.2 % (0.0-2.0); PLATELET COUNT 82 K/uL (130-400); RBC 3.33 Mil/uL (3.80-5.20); RED CELL DISTRIBUTION WIDTH 18.7 % (11.5-14.5)
[2018-04-30 07:40] LABS: WHITE BLOOD COUNT 43.5 K/uL (4.8-10.8)
[2018-04-30] MEDS ORDERED: Midazolam 2 MG/2 ML VIAL ONE (07:49)
[2018-04-30] MEDS ORDERED: Etomidate 20 mg/10ml Inj IV ONE (07:49)
[2018-04-30] MEDS ORDERED: Propofol 10 mg/ml Inj (20 ML) ONE (07:56)
[2018-04-30 08:11] LABS: ALBUMIN 2.7 g/dL (3.5-5.0); CALCIUM 8.2 mg/dl (8.6-10.4)
[2018-04-30] MEDS: Potassium Chloride 10 mEq ER Tab PO SCH (08:18)
--- NOTE | 2018-04-30 08:35 | CP.CCUPN ---
CCU Subjective - Physician Review Subjective (Free Text): ICU Progress note Patient seen and examined at bedside. She currently denies chest pain, shortness of breath, headache, dizziness, abdominal pain, nausea, vomiting, flank pain, leg pain. Plan for YANI/Cardioversion cancelled for today. She offers no complaints today. She states she does not feel short of breath. 04/30/18 10:43 CCU Objective - Vital Signs / Intake & Output Vital Signs (Last 4 hours): Vital Signs Pulse Resp BP Pulse Ox 04/30/18 08:19 86 31 H 122/67 96 04/30/18 08:00 85 28 H 96 04/30/18 07:49 86 23 118/69 99 04/30/18 07:30 84 27 H 97 04/30/18 07:19 86 35 H 125/69 97 04/30/18 07:00 88 29 H 98 04/30/18 06:00 83 24 98 04/30/18 05:49 83 25 H 128/70 98 04/30/18 05:30 92 H 12 97 04/30/18 05:27 90 19 137/70 97 04/30/18 05:00 88 23 96 04/30/18 04:49 78 20 121/56 L 93 L Intake and Output (Last 8hrs): Intake & Output 04/29/18 04/30/18 04/30/18 22:59 06:59 14:59 Intake Total 342.2 342.2 15.4 Output Total 500 350 Balance -157.8 -7.8 15.4 Intake: IV 130 102 Intake, IV Amount 212.2 120.2 15.4 R PICC 100 Right Forearm 69.7 80.2 10.4 Right PICC 42.5 40 5 Oral 120 Output: Urine 500 350 Urine, Voided 500 350 Other: # Voids Urine, Voided 1 1 # Bowel Movements 1 - Physical Exam Head: Positive for: Atraumatic, Normocephalic Extroacular Muscles: Positive for: EOMI Mouth: Positive for: Moist Mucous Membranes Respiratory/Chest: Positive for: Good Air Exchange, Rales (fine rales at bases bilaterally). Negative for: Respiratory Distress Cardiovascular: Positive for: Regular Rate and Rhythm, Other (Not noted to be in A fib today, still on Cardizem drip) Abdomen: Positive for: Other (Enlarged liver palpable). Negative for: Tenderness, Distention, Guarding Back: Positive for: Other. Negative for: CVA Tenderness Upper Extremity: Positive for: NORMAL PULSES, Capillary Refill < 2s. Negative for: Edema Lower Extremity: Positive for: Edema (minimal bilateral lower extremity edema ) , NORMAL PULSES. Negative for: CALF TENDERNESS Neurological: Positive for: GCS=15, CN II-XII Intact Skin: Positive for: Warm, Dry, Normal Color Psychiatric: Positive for: Alert, Oriented x 3 - Medications Active Medications: Active Medications Generic Name Dose Route Start Last Admin Trade Name Freq PRN Reason Stop Dose Admin Acetaminophen 650 mg 04/26/18 17:00 04/28/18 12:09 Tylenol 325mg Tab PO 650 mg Q6 PRN Administration Pain, Mild (1-3) Famotidine 20 mg 04/27/18 10:00 04/29/18 09:00 Pepcid PO 20 mg DAILY NAN Administration Furosemide 20 mg 04/29/18 10:15 04/29/18 18:22 Lasix PO 20 mg BID NAN Administration Imipenem/Cilastatin Sodium 500 100 mls @ 100 mls/hr 04/24/18 20:30 04/30/18 08:19 mg/ Sodium Chloride IVPB 100 mls/hr Q12H NAN Administration Protocol Diltiazem HCl 125 mg/ Dextrose 125 mls @ 5 mls/hr 04/28/18 12:15 04/29/18 19: 25 IV 5 mg/hr .Q24H NAN 5 mls/hr Protocol Titration 5 MG/HR Heparin Sodium/Sodium Chloride 25,000 units in 250 mls @ 7.531 mls/hr 16:20 04/30/18 00:45 Heparin 32635 Units/250ml 1/2 Normal Saline IV 14 units/kg/hr .Q24H PRN 10.543 mls/hr ADJUST RATE PER PROTOCOL Titration Protocol 10 UNITS/KG/HR Potassium Chloride 10 meq 04/28/18 18:15 04/30/18 08:18 Klor-Con 10 PO 10 meq BRK NAN Administration Propranolol HCl 10 mg 04/27/18 18:00 04/29/18 18:22 Inderal PO 10 mg BID NAN Administration - Patient Studies Lab Studies: Microbiology Studies 04/25/18 21:53 Blood Culture - Preliminary Blood-Venous NO GROWTH AFTER 4 DAYS 04/25/18 20:00 Blood Culture - Preliminary Blood-Venous NO GROWTH AFTER 4 DAYS Lab Studies 04/30/18 04/30/18 04/30/18 Range/Units 07:24 07:24 07:24 WBC (4.8-10.8) K/uL RBC (3.80-5.20) Mil/uL Hgb (11.0-16.0) g/dL Hct (34.0-47.0) % MCV (81.0-99.0) fL MCH (27.0-31.0) pg MCHC (33.0-37.0) g/dL RDW (11.5-14.5) % Plt Count (130-400) K/uL MPV (7.2-11.7) fL Neut % (Auto) (50.0-75.0) % Lymph % (Auto) (20.0-40.0) % [place] % (Auto) (0.0-10.0) % Eos % (Auto) (0.0-4.0) % Baso % (Auto) (0.0-2.0) % Neut # (Auto) (1.8-7.0) K/uL Lymph # (Auto) (1.0-4.3) K/uL [place] # (Auto) (0.0-0.8) K/uL Eos # (Auto) (0.0-0.7) K/uL Baso # (Auto) (0.0-0.2) K/uL Neutrophils % (Manual) (50-75) % Band Neutrophils % (0-2) % Lymphocytes % (Manual) (20-40) % Monocytes % (Manual) (0-10) % Eosinophils % (Manual) (0-4) % Metamyelocytes % (0-0) % Myelocytes % (0-0) % Nucleated RBC % (0-0) % Platelet Estimate (NORMAL) Large Platelets Polychromasia Hypochromasia (manual) Anisocytosis (manual) Ovalocytes APTT 46 H (21-34) SECONDS D-Dimer, Quantitative (0-243) ng/mlDDU Sodium 140 (132-148) mmol/L Potassium 3.8 (3.6-5.2) mmol/L Chloride 107 (98-107) mmol/L Carbon Dioxide 23 (22-30) mmol/L Anion Gap 14 (10-20) BUN 42 H (7-17) mg/dL Creatinine 2.2 H (0.7-1.2) mg/dL Est GFR ( Amer) 27 Est GFR (Non-Af Amer) 22 Random Glucose 107 H (65-105) mg/dL Lactic Acid 0.7 (0.7-2.1) mmol/L Calcium 8.2 L (8.6-10.4) mg/dl Phosphorus 2.1 L (2.5-4.5) mg/dL Magnesium 1.7 (1.6-2.3) mg/dL Total Bilirubin 0.6 (0.2-1.3) mg/dL AST 15 (14-36) U/L ALT 23 (9-52) U/L Alkaline Phosphatase 49 (38-126) U/L NT-Pro-B Natriuret Pep 70430 H (0-900) pg/mL Total Protein 5.6 L (6.3-8.3) g/dL Albumin 2.7 L (3.5-5.0) g/dL Globulin 2.9 (2.2-3.9) gm/dL Albumin/Globulin Ratio 1.0 (1.0-2.1) Anti-Smooth Muscle Ab (Negative) 04/30/18 04/29/18 04/29/18 Range/Units 07:24 23:11 15:26 WBC 43.5 H* (4.8-10.8) K/uL RBC 3.33 L (3.80-5.20) Mil/uL Hgb 9.5 L (11.0-16.0) g/dL Hct 29.8 L (34.0-47.0) % MCV 89.5 (81.0-99.0) fL MCH 28.5 (27.0-31.0) pg MCHC 31.8 L (33.0-37.0) g/dL RDW 18.7 H (11.5-14.5) % Plt Count 82 L (130-400) K/uL MPV 12.2 H (7.2-11.7) fL Neut % (Auto) 81.3 H (50.0-75.0) % Lymph % (Auto) 4.6 L (20.0-40.0) % [place] % (Auto) 11.4 H (0.0-10.0) % Eos % (Auto) 2.4 (0.0-4.0) % Baso % (Auto) 0.3 (0.0-2.0) % Neut # (Auto) 35.4 H (1.8-7.0) K/uL Lymph # (Auto) 2.0 (1.0-4.3) K/uL [place] # (Auto) 5.0 H (0.0-0.8) K/uL Eos # (Auto) 1.0 H (0.0-0.7) K/uL Baso # (Auto) 0.1 (0.0-0.2) K/uL Neutrophils % (Manual) (50-75) % Band Neutrophils % (0-2) % Lymphocytes % (Manual) (20-40) % Monocytes % (Manual) (0-10) % Eosinophils % (Manual) (0-4) % Metamyelocytes % (0-0) % Myelocytes % (0-0) % Nucleated RBC % (0-0) % Platelet Estimate (NORMAL) Large Platelets Polychromasia Hypochromasia (manual) Anisocytosis (manual) Ovalocytes APTT 42 H 40 H (21-34) SECONDS D-Dimer, Quantitative (0-243) ng/mlDDU Sodium (132-148) mmol/L Potassium (3.6-5.2) mmol/L Chloride (98-107) mmol/L Carbon Dioxide (22-30) mmol/L Anion Gap (10-20) BUN (7-17) mg/dL Creatinine (0.7-1.2) mg/dL Est GFR ( Amer) Est GFR (Non-Af Amer) Random Glucose (65-105) mg/dL Lactic Acid (0.7-2.1) mmol/L Calcium (8.6-10.4) mg/dl Phosphorus (2.5-4.5) mg/dL Magnesium (1.6-2.3) mg/dL Total Bilirubin (0.2-1.3) mg/dL AST (14-36) U/L ALT (9-52) U/L Alkaline Phosphatase (38-126) U/L NT-Pro-B Natriuret Pep (0-900) pg/mL Total Protein (6.3-8.3) g/dL Albumin (3.5-5.0) g/dL Globulin (2.2-3.9) gm/dL Albumin/Globulin Ratio (1.0-2.1) Anti-Smooth Muscle Ab (Negative) 04/29/18 04/29/18 04/28/18 Range/Units 10:26 07:10 06:18 WBC (4.8-10.8) K/uL RBC (3.80-5.20) Mil/uL Hgb (11.0-16.0) g/dL Hct (34.0-47.0) % MCV (81.0-99.0) fL MCH (27.0-31.0) pg MCHC (33.0-37.0) g/dL RDW (11.5-14.5) % Plt Count (130-400) K/uL MPV (7.2-11.7) fL Neut % (Auto) (50.0-75.0) % Lymph % (Auto) (20.0-40.0) % [place] % (Auto) (0.0-10.0) % Eos % (Auto) (0.0-4.0) % Baso % (Auto) (0.0-2.0) % Neut # (Auto) (1.8-7.0) K/uL Lymph # (Auto) (1.0-4.3) K/uL [place] # (Auto) (0.0-0.8) K/uL Eos # (Auto) (0.0-0.7) K/uL Baso # (Auto) (0.0-0.2) K/uL Neutrophils % (Manual) 65 (50-75) % Band Neutrophils % 7 H (0-2) % Lymphocytes % (Manual) 2 L (20-40) % Monocytes % (Manual) 12 H (0-10) % Eosinophils % (Manual) 4 (0-4) % Metamyelocytes % 6 H (0-0) % Myelocytes % 4 H (0-0) % Nucleated RBC % 3 H (0-0) % Platelet Estimate Decreased L (NORMAL) Large Platelets Present Polychromasia Slight Hypochromasia (manual) Slight Anisocytosis (manual) Slight Ovalocytes Slight APTT (21-34) SECONDS D-Dimer, Quantitative 431 H (0-243) ng/mlDDU Sodium (132-148) mmol/L Potassium (3.6-5.2) mmol/L Chloride (98-107) mmol/L Carbon Dioxide (22-30) mmol/L Anion Gap (10-20) BUN (7-17) mg/dL Creatinine (0.7-1.2) mg/dL Est GFR ( Amer) Est GFR (Non-Af Amer) Random Glucose (65-105) mg/dL Lactic Acid (0.7-2.1) mmol/L Calcium (8.6-10.4) mg/dl Phosphorus (2.5-4.5) mg/dL Magnesium (1.6-2.3) mg/dL Total Bilirubin (0.2-1.3) mg/dL AST (14-36) U/L ALT (9-52) U/L Alkaline Phosphatase (38-126) U/L NT-Pro-B Natriuret Pep (0-900) pg/mL Total Protein (6.3-8.3) g/dL Albumin (3.5-5.0) g/dL Globulin (2.2-3.9) gm/dL Albumin/Globulin Ratio (1.0-2.1) Anti-Smooth Muscle Ab Negative (Negative) Laboratory Results - last 24 hr 04/28/18 04/29/18 04/29/18 06:18 07:10 10:26 WBC RBC Hgb Hct MCV MCH MCHC RDW Plt Count MPV Neut % (Auto) Lymph % (Auto) [place] % (Auto) Eos % (Auto) Baso % (Auto) Neut # (Auto) Lymph # (Auto) [place] # (Auto) Eos # (Auto) Baso # (Auto) Neutrophils % (Manual) 65 Band Neutrophils % 7 H Lymphocytes % (Manual) 2 L Monocytes % (Manual) 12 H Eosinophils % (Manual) 4 Metamyelocytes % 6 H Myelocytes % 4 H Nucleated RBC % 3 H Platelet Estimate Decreased L Large Platelets Present Polychromasia Slight Hypochromasia (manual) Slight Anisocytosis (manual) Slight Ovalocytes Slight APTT D-Dimer, Quantitative 431 H Sodium Potassium Chloride Carbon Dioxide Anion Gap BUN Creatinine Est GFR ( Amer) Est GFR (Non-Af Amer) Random Glucose Lactic Acid Calcium Phosphorus Magnesium Total Bilirubin AST ALT Alkaline Phosphatase NT-Pro-B Natriuret Pep Total Protein Albumin Globulin Albumin/Globulin Ratio Anti-Smooth Muscle Ab Negative 04/29/18 04/29/18 04/30/18 15:26 23:11 07:24 WBC 43.5 H* RBC 3.33 L Hgb 9.5 L Hct 29.8 L MCV 89.5 MCH 28.5 MCHC 31.8 L RDW 18.7 H Plt Count 82 L MPV 12.2 H Neut % (Auto) 81.3 H Lymph % (Auto) 4.6 L [place] % (Auto) 11.4 H Eos % (Auto) 2.4 Baso % (Auto) 0.3 Neut # (Auto) 35.4 H Lymph # (Auto) 2.0 [place] # (Auto) 5.0 H Eos # (Auto) 1.0 H Baso # (Auto) 0.1 Neutrophils % (Manual) Band Neutrophils % Lymphocytes % (Manual) Monocytes % (Manual) Eosinophils % (Manual) Metamyelocytes % Myelocytes % Nucleated RBC % Platelet Estimate Large Platelets Polychromasia Hypochromasia (manual) Anisocytosis (manual) Ovalocytes APTT 40 H 42 H D-Dimer, Quantitative Sodium Potassium Chloride Carbon Dioxide Anion Gap BUN Creatinine Est GFR ( Amer) Est GFR (Non-Af Amer) Random Glucose Lactic Acid Calcium Phosphorus Magnesium Total Bilirubin AST ALT Alkaline Phosphatase NT-Pro-B Natriuret Pep Total Protein Albumin Globulin Albumin/Globulin Ratio Anti-Smooth Muscle Ab 04/30/18 04/30/18 04/30/18 07:24 07:24 07:24 WBC RBC Hgb Hct MCV MCH MCHC RDW Plt Count MPV Neut % (Auto) Lymph % (Auto) [place] % (Auto) Eos % (Auto) Baso % (Auto) Neut # (Auto) Lymph # (Auto) [place] # (Auto) Eos # (Auto) Baso # (Auto) Neutrophils % (Manual) Band Neutrophils % Lymphocytes % (Manual) Monocytes % (Manual) Eosinophils % (Manual) Metamyelocytes % Myelocytes % Nucleated RBC % Platelet Estimate Large Platelets Polychromasia Hypochromasia (manual) Anisocytosis (manual) Ovalocytes APTT 46 H D-Dimer, Quantitative Sodium 140 Potassium 3.8 Chloride 107 Carbon Dioxide 23 Anion Gap 14 BUN 42 H Creatinine 2.2 H Est GFR ( Amer) 27 Est GFR (Non-Af Amer) 22 Random Glucose 107 H Lactic Acid 0.7 Calcium 8.2 L Phosphorus 2.1 L Magnesium 1.7 Total Bilirubin 0.6 AST 15 ALT 23 Alkaline Phosphatase 49 NT-Pro-B Natriuret Pep 87411 H Total Protein 5.6 L Albumin 2.7 L Globulin 2.9 Albumin/Globulin Ratio 1.0 Anti-Smooth Muscle Ab EKG/Cardiology Studies: Cardiology / EKG Studies 04/30/18 08:04 EKG [ELECTROCARDIOGRAM] Stat Comment: Mode Of Transportation: PORTABLE Reason For Exam: atrial fib Review of Systems - Constitutional Constitutional: absent: Fever, Chills - Cardiovascular Cardiovascular: absent: Chest Pain, Diaphoresis, Dyspnea - Respiratory Respiratory: absent: Cough, Dyspnea - Gastrointestinal Gastrointestinal: absent: Abdominal Pain, Nausea, Vomiting Critical Care Progress Note - Nutrition Nutrition: Nutrition Category Date Time Status Heart Healthy Diet [DIET] Diets 04/30/18 Breakfast Active Assessment/Plan - Assessment and Plan (Free Text) Assessment: 67 year old female with history of arthritis, HTN, myelofibrosis with chronic leukocytosis who was admitted for right flank pain following failed outpatient treatment of pyelonephritis. CT revealed right hydroureteronephrosis with ureteral stricture, and she is s/p ureteral stent insertion by Dr. Irvin on 04/25/18. Patient developed Atrial fibrillation, currently on Cardizem drip. Plan: Neuro: Alert and oriented x3 Cardiovascular: Currently in Sinus rhythm on Cardizem Cardiology Dr. Alex consulted, help appreciated On Cardizem drip Started on Cardizem PO 30QID On Heparin drip ECHO: Left ventricle systolic function is normal. EF 65-70%. Transmitral doppler flow pattern is Grade I-abnormal relaxation pattern. Trace aortic regurgitation. Moderate pulmonary HTN. VQ scan Low probability for pulmonary embolism. CHADsVASC score 3 Right PICC line in place Plan for YANI and cardioversion not today Venous dopplers ordered. proBNP 04574 Pulmonary: Saturating well on RA CXR: right sided PICC line, Moderate pulmonary venous congestion. Cardiomegaly. Ectatic aorta. Lasix 20mg PO BID ordered. GI: Hepatosplenomegaly with portal HTN and portosystemic varices CT abdomen: 1. Right perinephric reaction is appreciated with mild to moderate right hydroureteronephrosis potentially on the basis of distal right ureteral stricture, lucent calculus or expelled calculus. No radiodense urolithiasis identified bilaterally including urinary bladder. Left kidney appears unremarkable. 2. Prominent carrie hepatis with extensive upper abdominal varices and splenomegaly suspicious for pattern blood flow. No gross pattern of hepatic cirrhosis. Cryptogenic cirrhosis is a possibility. Clinically correlate further. 3. Large calculus within the gallbladder with the gallbladder otherwise unremarkable appearing. CT abdomen 1. 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 Persistent mild right hydronephrosis and mild diffuse dilatation of the right ureteral with surrounding inflammatory changes without evidence for obstructing stones. Pyelonephritis/distal ureteral stricture is a consideration. Apparent mild mural thickening of the urinary bladder wall could also be related to cystitis. Please correlate with urine analysis. 3. No other significant interval change. Abdomen US: Normal splenic vein not well delineated on this study. Prominent varices noted surrounding the splenic vein. Clinical correlation. Dilated portal vein with increased velocity noted in the portal vein. Portal vein flow appears turbulent. Prominent varices are noted at the level of the carrie hepatis. Clinical correlation. Enlarged liver measuring 24.7 centimeters. Nodular and cirrhotic contour. Increased echogenicity of the hepatic parenchymal cortex suggestive for hepatic parenchymal disease versus fatty infiltration. Clinical correlation. Cholelithiasis. Gallbladder wall thickness measures 2.6 millimeters. Negative sonographic Hidalgo's sign. Spleen is markedly enlarged measuring up to 20 centimeters length. Increased echogenicity of the bilateral renal parenchymal cortices suggestive for medical renal disease. Small right pleural effusion. Abdomen US limited: Turbulent flow within the splenic vein without evidence of gross thrombus. Clinical correlation. Turbulent flow within the portal vein without gross thrombus. Patent flow in the hepatic veins. Right pleural effusion noted.Pancreas not well visualized. Pepcid 20mg PO daily Propranolol 10mg PO BID Dr. Méndez consulted, help appreciated As per GI note, unclear if splenomegaly and portal HTN are from thrombi or from underlying cirrhosis. Recommended beta sanjuanita for variceal prophylaxis and work up for causes of chronic liver disease. Hep panel negative Renal s/p right ureteral stent with Dr. Irvin on 04/25/[address] Irvin consulted, help appreciated Strict I&Os BUN/Cr 42/2.2 Endo: maintain euglycemia Heme/Onc: Hx of myelofibrosis with chronic leukocytosis Dr. Mcbride consulted, help appreciated White count 43.5 with bands of 6 H/H 9.5/29.8 Platelets 82 ID UA 1+ leuk esterase positive for nitrates Primaxin 500mg IV Dr. Jackson consulted, help appreciated Initial Blood Cultures negative, repeat blood cultures prelim negative Urine culture multiple species Nares MRSA not detected PPX: SCDs, Pepcid Case discussed with Dr. Serna
[2018-04-30 09:05] LABS: ANISOCYTOSIS MODERATE; BANDS 6 % (0-2); EOSINOPHIL 1 % (0-4); HYPOCHROMIC SLIGHT; LYMPHOCYTE 3 % (20-40); METAMYELOCYTE 4 % (0-0); MONOCYTE 11 % (0-10); MYELOCYTE 4 % (0-0); NEUTROPHIL 71 % (50-75); NUCLEATED RED BLOOD CELL 2 % (0-0); OVALOCYTES SLIGHT; PLATELET ESTIMATE DECREASED (NORMAL); TOTAL CELLS COUNTED 100
--- NOTE | 2018-04-30 12:02 | CP.PCM.PN ---
Subjective - Date & Time of Evaluation Date of Evaluation: 04/30/18 Time of Evaluation: 12:00 - Subjective Subjective: In ICU, developed rapid Afib Denies abdominal pain or dyspnea WBC's rising, BNP markedly elevated. Cardiology following. 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 possibility of stopping Cardizem Objective - Vital Signs/Intake and Output Vital Signs (last 24 hours): Temp Pulse Resp BP Pulse Ox 98.6 F 84 21 115/53 L 96 04/30/18 08:00 04/30/18 11:30 04/30/18 11:30 04/30/18 11:20 04/30/18 11:30 Intake and Output: 04/30/18 04/30/18 06:59 18:59 Intake Total 502.8 387.4 Output Total 550 200 Balance -47.2 187.4 - Medications Medications: Current Medications Acetaminophen (Tylenol 325mg Tab) 650 mg PO Q6 PRN PRN Reason: Pain, Mild (1-3) Last Admin: 04/28/18 12:09 Dose: 650 mg Diltiazem HCl (Cardizem) 30 mg PO QID [facility] Last Admin: 04/30/18 11:16 Dose: 30 mg Famotidine (Pepcid) 20 mg PO DAILY [facility] Last Admin: 04/30/18 10:10 Dose: 20 mg Furosemide (Lasix) 20 mg PO BID [facility] Last Admin: 04/30/18 10:10 Dose: 20 mg Imipenem/Cilastatin Sodium 500 (mg/ Sodium Chloride) 100 mls @ 100 mls/hr IVPB Q12H NAN PRN Reason: Protocol Last Admin: 04/30/18 08:19 Dose: 100 mls/hr Diltiazem HCl 125 mg/ Dextrose 125 mls @ 5 mls/hr IV .Q24H NAN; 5 MG/HR PRN Reason: Protocol Last Titration: 04/29/18 19:25 Dose: 5 mg/hr, 5 mls/hr Heparin Sodium/Sodium Chloride (Heparin 53854 Units/250ml 1/2 Normal Saline) 25 ,000 units in 250 mls @ 7.531 mls/hr IV .Q24H PRN; Protocol; 10 UNITS/KG/HR PRN Reason: ADJUST RATE PER PROTOCOL Last Titration: 04/30/18 00:45 Dose: 14 units/kg/hr, 10.543 mls/hr Potassium Chloride (Klor-Con 10) 10 meq PO BRK NAN Last Admin: 04/30/18 08:18 Dose: 10 meq Propranolol HCl (Inderal) 10 mg PO BID NAN Last Admin: 04/30/18 10:10 Dose: 10 mg - Labs Labs: 04/30/18 07:24 04/30/18 07:24 PT 16.0 SECONDS (9.7-12.2) H 04/28/18 16:55 INR 1.5 04/28/18 16:55 APTT 46 SECONDS (21-34) H 04/30/18 07:24 - Constitutional Appears: No Acute Distress - Head Exam Head Exam: NORMOCEPHALIC - Eye Exam Eye Exam: absent: Scleral icterus - Respiratory Exam Respiratory Exam: NORMAL BREATHING PATTERN - Cardiovascular Exam Cardiovascular Exam: REGULAR RHYTHM - GI/Abdominal Exam GI & Abdominal Exam: Soft, Organomegaly. absent: Tenderness - Extremities Exam Extremities Exam: Normal Inspection. 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 Treatment is anticoagulation + NSBB for portal HTN Status: Acute (2) Myelofibrosis Status: Acute (3) Pyelonephritis due to Escherichia coli Status: Acute (4) Thrombocytopenia Status: Acute
--- NOTE | 2018-04-30 16:11 | VASCLAB ---
Date of service: 04/30/2018 PROCEDURE: Lower Extremity Venous Duplex Exam. HISTORY: Leg swelling PRIORS: None. TECHNIQUE: Bilateral common femoral, femoral, popliteal and posterior tibial, peroneal and great saphenous veins were evaluated. Flow was assessed with color Doppler, compressibility, assessment of phasic flow and augmentation response. Report prepared by BERE Rowley, RVT FINDINGS: RIGHT: 1. Common Femoral Vein: 1.1. Compressibility - Fully compressible: Thrombus - None : Flow - Phasic: Augmentation -Normal: Reflux - None. 2. Femoral Vein: 2.1. Compressibility - Fully compressible: Thrombus - None : Flow - Phasic: Augmentation -Normal: Reflux - None. 3. Popliteal Vein: 3.1. Compressibility - Fully compressible: Thrombus - None : Flow - Phasic: Augmentation -Normal: Reflux - None. 4. Posterior Tibial Vein: 4.1. Compressibility - Fully compressible: Thrombus - None: Flow - Phasic: Augmentation -Normal: Reflux - None. 5. Peroneal Vein: 5.1. Compressibility - Fully compressible: Thrombus - None: Flow - Phasic: Augmentation -Normal: Reflux - None. 6. Great Saphenous Vein: 6.1. Compressibility - Fully compressible: Thrombus - None: Flow - Phasic: Augmentation - Normal: Reflux - None. LEFT: 1. Common Femoral Vein: 1.1. Compressibility - Fully compressible: Thrombus - None: Flow - Phasic: Augmentation -Normal: Reflux - None. 2. Femoral Vein: 2.1. Compressibility - Fully compressible: Thrombus - None: Flow - Phasic: Augmentation -Normal: Reflux - None. 3. Popliteal Vein: 3.1. Compressibility - Fully compressible: Thrombus - None : Flow - Phasic: Augmentation -Normal: Reflux - None. 4. Posterior Tibial Vein: 4.1. Compressibility - Fully compressible: Thrombus - None: Flow - Phasic: Augmentation -Normal: Reflux - None. 5. Peroneal Vein: 5.1. Compressibility - Fully compressible: Thrombus - None: Flow - Phasic: Augmentation -Normal: Reflux - None. 6. Great Saphenous Vein: 6.1. Compressibility - Fully compressible: Thrombus - None: Flow - Phasic: Augmentation - Normal: Reflux - None. OTHER FINDINGS: LIDYA Winn notified about the findings. IMPRESSION: Right: Acute thrombosis of the right gastrocnemius vein with severe reduction of the venous return. Left: No evidence of deep or superficial vein thrombosis of the left lower extremity. Normal valve function noted of the left side.
--- NOTE | 2018-04-30 16:49 | CP.PCM.PN ---
<LuisFabiolacarin E - Last Filed: 04/30/18 17:08> Subjective - Date & Time of Evaluation Date of Evaluation: 04/30/18 Time of Evaluation: 16:35 - Subjective Subjective: Cardiology progress note (Dr. Alex's service) Patient was seen and examined at bedside. Patient was resting comfortably in bed in no acute distress. Patient denies any cardiac symptoms such as chest pain , palpitations, SOB, dizziness, lightheadedness. Objective - Vital Signs/Intake and Output Vital Signs (last 24 hours): Temp Pulse Resp BP Pulse Ox 98.3 F 74 35 H 96/50 L 98 04/30/18 15:56 04/30/18 16:00 04/30/18 16:00 04/30/18 15:49 04/30/18 16:00 Intake and Output: 04/30/18 04/30/18 06:59 18:59 Intake Total 502.8 634.4 Output Total 550 400 Balance -47.2 234.4 - Medications Medications: Current Medications Acetaminophen (Tylenol 325mg Tab) 650 mg PO Q6 PRN PRN Reason: Pain, Mild (1-3) Last Admin: 04/30/18 11:51 Dose: 650 mg Diltiazem HCl (Cardizem) 30 mg PO QID [facility] Last Admin: 04/30/18 14:14 Dose: 30 mg Famotidine (Pepcid) 20 mg PO DAILY [facility] Last Admin: 04/30/18 10:10 Dose: 20 mg Furosemide (Lasix) 20 mg PO BID [facility] Last Admin: 04/30/18 10:10 Dose: 20 mg Imipenem/Cilastatin Sodium 500 (mg/ Sodium Chloride) 100 mls @ 100 mls/hr IVPB Q12H NAN PRN Reason: Protocol Last Admin: 04/30/18 08:19 Dose: 100 mls/hr Diltiazem HCl 125 mg/ Dextrose 125 mls @ 5 mls/hr IV .Q24H NAN; 5 MG/HR PRN Reason: Protocol Last Admin: 04/30/18 11:30 Dose: Not Given Heparin Sodium/Sodium Chloride (Heparin 57288 Units/250ml 1/2 Normal Saline) 25 ,000 units in 250 mls @ 7.531 mls/hr IV .Q24H PRN; Protocol; 10 UNITS/KG/HR PRN Reason: ADJUST RATE PER PROTOCOL Last Titration: 04/30/18 00:45 Dose: 14 units/kg/hr, 10.543 mls/hr Potassium Chloride (Klor-Con 10) 10 meq PO BRK COUNT [facility]CLUDES [facility] Last Admin: 04/30/18 08:18 Dose: 10 meq Propranolol HCl (Inderal) 10 mg PO TID [facility] Last Admin: 04/30/18 14:14 Dose: 10 mg - Labs Labs: 04/30/18 07:24 04/30/18 07:24 PT 16.0 SECONDS (9.7-12.2) H 04/28/18 16:55 INR 1.5 04/28/18 16:55 APTT 56 SECONDS (21-34) H D 04/30/18 13:12 - Constitutional Appears: Well, No Acute Distress - Head Exam Head Exam: ATRAUMATIC, NORMAL INSPECTION - Eye Exam Eye Exam: EOMI, Normal appearance - ENT Exam ENT Exam: Mucous Membranes Moist - Respiratory Exam Respiratory Exam: Clear to Ausculation Bilateral, NORMAL BREATHING PATTERN. absent: Prolonged Expiratory Phase, Rhonchi, Wheezes, Respiratory Distress - Cardiovascular Exam Cardiovascular Exam: REGULAR RHYTHM, +S1, +S2 - GI/Abdominal Exam GI & Abdominal Exam: Soft, Normal Bowel Sounds. absent: Distended, Firm, Guarding, Rigid, Tenderness - Extremities Exam Extremities Exam: Normal Inspection. absent: Calf Tenderness, Pedal Edema - Neurological Exam Neurological Exam: Alert, Awake, Oriented x3 - Psychiatric Exam Psychiatric exam: Normal Affect - Skin Skin Exam: Normal Color Assessment and Plan (1) Atrial fibrillation, new onset Assessment & Plan: Patient is a 67 year old female with past medical history hypertension, myelofibrosis, chronic leukocytosis on treatment for myelofibrosis currently on treatment with hematology and oncology, Rae Jalloh, who was admitted from right flank pain and found to have a R Hydronephrosis and now s/p R ureteral stent. Cardiology consult was placed for new onset of atrial fibrillation with rapid ventricular response: Labs: - TSH: 0.53, WNL 1. Rule out PE, V/Q scan negative, D-Dimer is elevated (431), continuation with heparin drip - LE Venous doppler scan: Acute thrombosis of the right gastrocnemius with severe reduction of the venous return. No evidence of deep venous thrombosis in the left lower extremities 2. Rate controlled on Cardizem drip 125mg at 5mg/hr 3. V/Q scan is negative for PE, plans for possible YANI and cardioversion tomorrow 04/30/18 was cancelled due to conversion to NSR this am Status: Acute (2) DVT (deep venous thrombosis) Assessment & Plan: D-Dimer is elevated (431) LE Venous doppler scan: Acute thrombosis of the right gastrocnemius with severe reduction of the venous return. No evidence of deep venous thrombosis in the left lower extremities Medication: * Heparin drip Status: Acute (3) Elevated brain natriuretic peptide (BNP) level Assessment & Plan: BNP: 15,300 Chest X-ray (04/29/18): Right-sided PICC. Moderate pulmonary venous congestion. Cardiomegaly. Ectatic aorta. Echocardiogram (04/26/18): LV function is normal. EF (65-70%). Trace aortic regurgitation and moderate pulmonary hypertension Lasix 20mg PO BID; gentle diuresis in light of SOFIA Status: Acute (4) Hepatosplenomegaly Assessment & Plan: Abdominal/ Pelvis without contrast: . Prominent carrie hepatis with extensive upper abdominal varices and splenomegaly suspicious for pattern blood flow. No gross pattern of hepatic cirrhosis. Cryptogenic cirrhosis is a possibility. Clinically correlate further. As per GI, Dr. Méndez: it is not clear whether the splenomegaly and portal HTN are from thrombosi or perhaps from underlying cirrhosis. Will start on beta sanjuanita for variceal prophylaxis, and work up for causes of chronic liver disease. Medication for variceal ppx: * Propranolol 10mg PO BID Status: Acute (5) Hydronephrosis, right Assessment & Plan: Abdominal/ Pelvis without contrast: Right perinephric reaction is appreciated with mild to moderate right hydroureteronephrosis potentially on the basis of distal right ureteral stricture, lucent calculus or expelled calculus. No radiodense urolithiasis identified bilaterally including urinary bladder. Left kidney appears unremarkable. S/P ureteral stent (04/25/18) Status: Acute (6) Pyelonephritis due to Escherichia coli Assessment & Plan: Primaxin 500mg IV Q12H Status: Acute (7) Prophylactic measure Assessment & Plan: DVT: Heparin drip GI: Pepcid 20mg PO daily Plans for YANI and cardioversion today cancelled due to conversion to NSR this am Recommendation for anticoagulation, Eliquis 5mg PO BID for 6 weeks if it is approved by hematology and oncology in light of thrombocytopenia. Outpatient patient follow up with cardiology, Dr. Alex 4-6 weeks after discharge All plans and management discussed with Dr. Alex Status: Acute <Alber Alex - Last Filed: 04/30/18 22:48> Objective - Vital Signs/Intake and Output Vital Signs (last 24 hours): Temp Pulse Resp BP Pulse Ox 98.8 F 85 27 H 118/66 97 04/30/18 21:24 04/30/18 20:49 04/30/18 20:49 04/30/18 20:49 04/30/18 21:24 Intake and Output: 04/30/18 05/01/18 18:59 06:59 Intake Total 908.2 271.2 Output Total 600 250 Balance 308.2 21.2 - Medications Medications: Current Medications Acetaminophen (Tylenol 325mg Tab) 650 mg PO Q6 PRN PRN Reason: Pain, Mild (1-3) Last Admin: 04/30/18 11:51 Dose: 650 mg Diltiazem HCl (Cardizem) 30 mg PO QID COUNT [facility] Last Admin: 04/30/18 17:53 Dose: 30 mg Famotidine (Pepcid) 20 mg PO DAILY COUNT [facility]CLUD[facility] Last Admin: 04/30/18 10:10 Dose: 20 mg Furosemide (Lasix) 20 mg PO BID COUNT [facility] Last Admin: 04/30/18 17:53 Dose: 20 mg Imipenem/Cilastatin Sodium 500 (mg/ Sodium Chloride) 100 mls @ 100 mls/hr IVPB Q12H COUNT [facility] PRN Reason: Protocol Last Admin: 04/30/18 21:51 Dose: 100 mls/hr Heparin Sodium/Sodium Chloride (Heparin 69274 Units/250ml 1/2 Normal Saline) 25 ,000 units in 250 mls @ 7.531 mls/hr IV .Q24H PRN; Protocol; 10 UNITS/KG/HR PRN Reason: ADJUST RATE PER PROTOCOL Last Admin: 04/30/18 21:00 Dose: 14 units/kg/hr, 10.543 mls/hr Potassium Chloride (Klor-Con 10) 10 meq PO BRK COUNT [facility]CLUDES [facility] Last Admin: 04/30/18 08:18 Dose: 10 meq Propranolol HCl (Inderal) 10 mg PO TID COUNT [facility] Last Admin: 04/30/18 17:53 Dose: 10 mg - Labs Labs: 04/30/18 07:24 09/12/18 07:24 PT 16.0 SECONDS (9.7-12.2) H 04/28/18 16:55 INR 1.5 04/28/18 16:55 APTT 56 SECONDS (21-34) H D 04/30/18 13:12 Assessment and Plan - Assessment and Plan (Free Text) Assessment: Patient seen and evaluated personally by al Plan of care d/w the medical diagnostic radiographer and as documented
[2018-04-30] MEDS: Heparin25000 units/250ml 1/2NS 25,000 UNITS/250 ML BAG IV PRN (21:00)
--- NOTE | 2018-04-30 21:48 | CP.PCM.PN ---
Subjective - Date & Time of Evaluation Date of Evaluation: 04/30/18 Time of Evaluation: 11:45 - Subjective Subjective: clinically same Objective - Vital Signs/Intake and Output Vital Signs (last 24 hours): Temp Pulse Resp BP Pulse Ox 98.8 F 85 27 H 118/66 97 04/30/18 21:24 04/30/18 20:49 04/30/18 20:49 04/30/18 20:49 04/30/18 21:24 Intake and Output: 04/30/18 05/01/18 18:59 06:59 Intake Total 760.2 271.2 Output Total 600 250 Balance 160.2 21.2 - Medications Medications: Current Medications Acetaminophen (Tylenol 325mg Tab) 650 mg PO Q6 PRN PRN Reason: Pain, Mild (1-3) Last Admin: 04/30/18 11:51 Dose: 650 mg Diltiazem HCl (Cardizem) 30 mg PO QID [facility] Last Admin: 04/30/18 17:53 Dose: 30 mg Famotidine (Pepcid) 20 mg PO DAILY [facility] Last Admin: 04/30/18 10:10 Dose: 20 mg Furosemide (Lasix) 20 mg PO BID [facility] Last Admin: 04/30/18 17:53 Dose: 20 mg Imipenem/Cilastatin Sodium 500 (mg/ Sodium Chloride) 100 mls @ 100 mls/hr IVPB Q12H [facility] PRN Reason: Protocol Last Admin: 04/30/18 08:19 Dose: 100 mls/hr Heparin Sodium/Sodium Chloride (Heparin 41698 Units/250ml 1/2 Normal Saline) 25 ,000 units in 250 mls @ 7.531 mls/hr IV .Q24H PRN; Protocol; 10 UNITS/KG/HR PRN Reason: ADJUST RATE PER PROTOCOL Last Titration: 04/30/18 00:45 Dose: 14 units/kg/hr, 10.543 mls/hr Potassium Chloride (Klor-Con 10) 10 meq PO BRK [facility] Last Admin: 04/30/18 08:18 Dose: 10 meq Propranolol HCl (Inderal) 10 mg PO TID [facility] Last Admin: 04/30/18 17:53 Dose: 10 mg - Labs Labs: 04/30/18 07:24 04/30/18 07:24 PT 16.0 SECONDS (9.7-12.2) H 04/28/18 16:55 INR 1.5 04/28/18 16:55 APTT 56 SECONDS (21-34) H D 04/30/18 13:12
--- NOTE | 2018-04-30 23:57 | PCM.URO ---
Urology Progress Note - General General: Tolerating Diet (c/o low back pain) - Subjective Abdominal Pain: No Flank Pain: No Nausea: No Vomiting: No Voiding Well: Yes Dysuria: No Hematuria: No [place]: Yes Dsypnea: No Chest Pain: No Fever & Chills: No Other: Pt had A Fib - Objective Lab Studies: Reviewed (Azotemia, stble Leukocytosis - increased again) Lab Results Last 24 Hours: Laboratory Results - last 24 hr 04/30/18 04/30/18 04/30/18 07:24 07:24 07:24 WBC 43.5 H* RBC 3.33 L Hgb 9.5 L Hct 29.8 L MCV 89.5 MCH 28.5 MCHC 31.8 L RDW 18.7 H Plt Count 82 L MPV 12.2 H Neut % (Auto) 81.3 H Lymph % (Auto) 4.6 L [place] % (Auto) 11.4 H Eos % (Auto) 2.4 Baso % (Auto) 0.3 Neut # (Auto) 35.4 H Lymph # (Auto) 2.0 [place] # (Auto) 5.0 H Eos # (Auto) 1.0 H Baso # (Auto) 0.1 Neutrophils % (Manual) 71 Band Neutrophils % 6 H Lymphocytes % (Manual) 3 L Monocytes % (Manual) 11 H Eosinophils % (Manual) 1 Metamyelocytes % 4 H Myelocytes % 4 H Nucleated RBC % 2 H Platelet Estimate Decreased L Hypochromasia (manual) Slight Anisocytosis (manual) Moderate Ovalocytes Slight APTT Sodium 140 Potassium 3.8 Chloride 107 Carbon Dioxide 23 Anion Gap 14 BUN 42 H Creatinine 2.2 H Est GFR ( Amer) 27 Est GFR (Non-Af Amer) 22 Random Glucose 107 H Lactic Acid Calcium 8.2 L Phosphorus 2.1 L Magnesium 1.7 Total Bilirubin 0.6 AST 15 ALT 23 Alkaline Phosphatase 49 NT-Pro-B Natriuret Pep 84600 H Total Protein 5.6 L Albumin 2.7 L Globulin 2.9 Albumin/Globulin Ratio 1.0 Procalcitonin 0.75 H 04/30/18 04/30/18 04/30/18 07:24 07:24 13:12 WBC RBC Hgb Hct MCV MCH MCHC RDW Plt Count MPV Neut % (Auto) Lymph % (Auto) [place] % (Auto) Eos % (Auto) Baso % (Auto) Neut # (Auto) Lymph # (Auto) [place] # (Auto) Eos # (Auto) Baso # (Auto) Neutrophils % (Manual) Band Neutrophils % Lymphocytes % (Manual) Monocytes % (Manual) Eosinophils % (Manual) Metamyelocytes % Myelocytes % Nucleated RBC % Platelet Estimate Hypochromasia (manual) Anisocytosis (manual) Ovalocytes APTT 46 H 56 H D Sodium Potassium Chloride Carbon Dioxide Anion Gap BUN Creatinine Est GFR ( Amer) Est GFR (Non-Af Amer) Random Glucose Lactic Acid 0.7 Calcium Phosphorus Magnesium Total Bilirubin AST ALT Alkaline Phosphatase NT-Pro-B Natriuret Pep Total Protein Albumin Globulin Albumin/Globulin Ratio Procalcitonin Intake & Output: Intake & Output 04/30/18 04/30/18 05/01/18 06:59 18:59 06:59 Intake Total 502.8 908.2 422.0 Output Total 550 600 250 Balance -47.2 308.2 172.0 Intake: IV 107 148 Intake, IV Amount 275.8 290.2 152.0 R FA 100 R PICC 100 Right Forearm 115.8 135.2 52.0 Right PICC 60 55 100 Oral 120 470 270 Output: Urine 550 600 250 Urine, Voided 550 600 250 Other: # Voids Urine, Voided 1 1 1 # Bowel Movements 1 1 Vital Signs: Vital Signs - 24 hr 04/30/18 04/30/18 04/30/18 00:00 00:19 00:30 Temperature Pulse Rate 83 85 80 Respiratory 25 H 26 H 20 Rate Blood Pressure 117/61 O2 Sat by Pulse 98 98 96 Oximetry 04/30/18 04/30/18 04/30/18 00:49 01:00 01:19 Temperature Pulse Rate 80 78 82 Respiratory 20 18 21 Rate Blood Pressure 117/62 121/59 L O2 Sat by Pulse 97 99 94 L Oximetry 04/30/18 04/30/18 04/30/18 01:30 01:49 02:00 Temperature Pulse Rate 78 78 79 Respiratory 19 16 18 Rate Blood Pressure 118/52 L O2 Sat by Pulse 92 L 95 96 Oximetry 04/30/18 04/30/18 04/30/18 02:19 02:30 02:50 Temperature Pulse Rate 81 82 94 H Respiratory 20 20 22 Rate Blood Pressure 105/59 L 71/51 L O2 Sat by Pulse 93 L 93 L 93 L Oximetry 04/30/18 04/30/18 04/30/18 02:54 03:00 03:19 Temperature Pulse Rate 83 79 77 Respiratory 26 H 23 19 Rate Blood Pressure 132/70 109/63 O2 Sat by Pulse 94 L 97 97 Oximetry 04/30/18 04/30/18 04/30/18 03:30 03:49 04:00 Temperature Pulse Rate 77 81 79 Respiratory 18 21 21 Rate Blood Pressure 118/63 O2 Sat by Pulse 96 95 97 Oximetry 04/30/18 04/30/18 04/30/18 04:19 04:30 04:49 Temperature Pulse Rate 80 80 78 Respiratory 19 21 20 Rate Blood Pressure 129/64 121/56 L O2 Sat by Pulse 96 95 93 L Oximetry 04/30/18 04/30/18 04/30/18 05:00 05:27 05:30 Temperature Pulse Rate 88 90 92 H Respiratory 23 19 12 Rate Blood Pressure 137/70 O2 Sat by Pulse 96 97 97 Oximetry 04/30/18 04/30/18 04/30/18 05:49 06:00 07:00 Temperature Pulse Rate 83 83 88 Respiratory 25 H 24 29 H Rate Blood Pressure 128/70 O2 Sat by Pulse 98 98 98 Oximetry 04/30/18 04/30/18 04/30/18 07:19 07:30 07:49 Temperature Pulse Rate 86 84 86 Respiratory 35 H 27 H 23 Rate Blood Pressure 125/69 118/69 O2 Sat by Pulse 97 97 99 Oximetry 04/30/18 04/30/18 04/30/18 08:00 08:19 08:30 Temperature 98.6 F Pulse Rate 85 86 88 Respiratory 28 H 31 H 17 Rate Blood Pressure 122/67 O2 Sat by Pulse 98 96 97 Oximetry 04/30/18 04/30/18 04/30/18 08:49 09:00 09:19 Temperature Pulse Rate 80 82 89 Respiratory 20 23 19 Rate Blood Pressure 123/64 124/68 O2 Sat by Pulse 98 99 94 L Oximetry 04/30/18 04/30/18 04/30/18 09:30 09:49 10:00 Temperature Pulse Rate 91 H 89 90 Respiratory 27 H 35 H 13 Rate Blood Pressure 121/65 O2 Sat by Pulse 96 94 L 93 L Oximetry 04/30/18 04/30/18 04/30/18 10:10 10:19 10:30 Temperature Pulse Rate 89 88 Respiratory 22 33 H Rate Blood Pressure 121/65 113/59 L O2 Sat by Pulse 96 96 Oximetry 04/30/18 04/30/18 04/30/18 10:49 11:00 11:20 Temperature Pulse Rate 85 90 83 Respiratory 32 H 18 22 Rate Blood Pressure 124/71 115/53 L O2 Sat by Pulse 96 94 L 94 L Oximetry 04/30/18 04/30/18 04/30/18 11:30 11:49 12:00 Temperature 98.6 F Pulse Rate 84 85 82 Respiratory 21 22 18 Rate Blood Pressure 112/55 L O2 Sat by Pulse 96 91 L 95 Oximetry 04/30/18 04/30/18 04/30/18 12:20 12:30 12:49 Temperature Pulse Rate 81 79 80 Respiratory 29 H 33 H 14 Rate Blood Pressure 136/55 L 108/61 O2 Sat by Pulse 93 L 95 97 Oximetry 04/30/18 04/30/18 04/30/18 13:00 13:19 13:30 Temperature Pulse Rate 81 81 74 Respiratory 17 32 H 21 Rate Blood Pressure 117/63 O2 Sat by Pulse 97 96 98 Oximetry 04/30/18 04/30/18 04/30/18 13:49 14:00 14:19 Temperature Pulse Rate 80 77 74 Respiratory 17 18 17 Rate Blood Pressure 113/53 L 108/53 L O2 Sat by Pulse 97 96 96 Oximetry 04/30/18 04/30/18 04/30/18 14:30 14:49 15:00 Temperature Pulse Rate 83 78 76 Respiratory 19 16 26 H Rate Blood Pressure 115/61 O2 Sat by Pulse 95 97 96 Oximetry 04/30/18 04/30/18 04/30/18 15:19 15:30 15:49 Temperature Pulse Rate 76 76 77 Respiratory 17 27 H 17 Rate Blood Pressure 104/61 96/50 L O2 Sat by Pulse 98 97 99 Oximetry 04/30/18 04/30/18 04/30/18 15:56 16:00 16:19 Temperature 98.3 F Pulse Rate 74 74 Respiratory 35 H 24 Rate Blood Pressure 114/65 O2 Sat by Pulse 98 98 100 Oximetry 04/30/18 04/30/18 04/30/18 16:30 16:49 17:00 Temperature Pulse Rate 74 69 70 Respiratory 21 20 20 Rate Blood Pressure 122/61 O2 Sat by Pulse 99 99 98 Oximetry 04/30/18 04/30/18 04/30/18 17:19 17:30 17:49 Temperature Pulse Rate 72 73 83 Respiratory 18 20 37 H Rate Blood Pressure 124/59 L 136/76 O2 Sat by Pulse 99 98 Oximetry 04/30/18 04/30/18 04/30/18 17:53 18:00 18:19 Temperature Pulse Rate 81 82 Respiratory 29 H 12 Rate Blood Pressure 135/75 129/68 O2 Sat by Pulse 96 100 Oximetry 04/30/18 04/30/18 04/30/18 18:30 18:49 19:00 Temperature Pulse Rate 83 82 81 Respiratory 19 16 26 H Rate Blood Pressure 121/59 L O2 Sat by Pulse 100 92 L Oximetry 04/30/18 04/30/18 04/30/18 19:19 19:30 20:00 Temperature Pulse Rate 85 85 84 Respiratory 29 H 29 H 33 H Rate Blood Pressure 126/69 O2 Sat by Pulse 96 99 98 Oximetry 04/30/18 04/30/18 04/30/18 20:20 20:49 21:19 Temperature Pulse Rate 85 81 Respiratory 27 H 26 H Rate Blood Pressure 122/69 118/66 107/53 L O2 Sat by Pulse 93 L 94 L Oximetry 04/30/18 04/30/18 04/30/18 21:24 21:30 21:49 Temperature 98.8 F Pulse Rate 85 Respiratory 17 Rate Blood Pressure 97/41 L O2 Sat by Pulse 97 93 L Oximetry 04/30/18 04/30/18 04/30/18 22:00 22:20 22:49 Temperature Pulse Rate 86 Respiratory 19 Rate Blood Pressure 97/41 L 129/67 121/65 O2 Sat by Pulse 99 Oximetry 04/30/18 23:00 Temperature Pulse Rate 78 Respiratory 22 Rate Blood Pressure O2 Sat by Pulse 99 Oximetry - Physical Exam Abdominal Exam: Soft, Non-Tender, Non-Distended Back: No CVA Tenderness - Plan Intake & Output: Yes Additional Information: IMP: UTI, improved re: R flank Sx and R pyelonephritis. DVT. Poss pulm embolus. R Hydronephrosis, stable p cysto and stent insertion. Rec/p: Repeat and monitor urine culture. Continue antibiotics. Stent in place. On anticoagulation w heparin. Discussed w pt, family, and ICU staff. When overrall status imporved, pt will need ureteroscopy. YS - Date & Time of Note Date: 04/30/18 Time: 14:50
[2018-05-01 06:34] LABS: BASO # 0.7 K/uL (0.0-0.2); BASO % 1.4 % (0.0-2.0); EOS % 2.1 % (0.0-4.0); HEMOGLOBIN 9.5 g/dL (11.0-16.0); LYMPH # 2.4 K/uL (1.0-4.3); LYMPH % 4.9 % (20.0-40.0); MEAN CELL VOLUME 90.2 fL (81.0-99.0); MEAN CORPUSCULAR HEMOGLOBIN 28.3 pg (27.0-31.0); MEAN CORPUSCULAR HGB CONC 31.3 g/dL (33.0-37.0); MEAN PLATELET VOLUME 12.5 fL (7.2-11.7); MONO # 7.7 K/uL (0.0-0.8); MONO % 15.6 % (0.0-10.0); NEUT # 37.6 K/uL (1.8-7.0); NRBC % 0.8 % (0.0-2.0); PLATELET COUNT 103 K/uL (130-400); RBC 3.35 Mil/uL (3.80-5.20); RED CELL DISTRIBUTION WIDTH 19.1 % (11.5-14.5)
[2018-05-01 06:37] LABS: WHITE BLOOD COUNT 49.5 K/uL (4.8-10.8)
[2018-05-01 06:43] LABS: ALBUMIN 2.9 g/dL (3.5-5.0); CALCIUM 8.3 mg/dl (8.6-10.4)
[2018-05-01] MEDS ORDERED: Potassium & Sodium Phosphate PO ONE (08:00)
[2018-05-01] MEDS: Potassium Chloride 10 mEq ER Tab PO SCH (08:05)
[2018-05-01 08:43] LABS: BANDS 12 % (0-2); EOSINOPHIL 1 % (0-4); LYMPHOCYTE 2 % (20-40); METAMYELOCYTE 5 % (0-0); MONOCYTE 8 % (0-10); MYELOCYTE 11 % (0-0); NEUTROPHIL 59 % (50-75); NUCLEATED RED BLOOD CELL 1 % (0-0); PLASMACYTES 1 (0-0); REACTIVE LYMPHOCYTES 1 % (0-0); TOTAL CELLS COUNTED 100
[2018-05-01 08:44] LABS: ANISOCYTOSIS MODERATE; HYPOCHROMIC SLIGHT; PLATELET ESTIMATE SLIGHTLY DECREASED (NORMAL)
[2018-05-01 08:45] LABS: LARGE PLATELETS PRESENT; OVALOCYTES SLIGHT; TOXIC GRANULATION PRESENT
--- NOTE | 2018-05-01 10:36 | CP.PCM.PN ---
Subjective - Date & Time of Evaluation Date of Evaluation: 05/01/18 Time of Evaluation: 12:30 - Subjective Subjective: clinically same Objective - Vital Signs/Intake and Output Vital Signs (last 24 hours): Temp Pulse Resp BP Pulse Ox 98.8 F 90 22 129/65 98 04/30/18 21:24 05/01/18 08:02 05/01/18 08:02 05/01/18 09:07 05/01/18 08:02 Intake and Output: 05/01/18 05/01/18 06:59 18:59 Intake Total 494.8 381.6 Output Total 850 Balance -355.2 381.6 - Medications Medications: Current Medications Acetaminophen (Tylenol 325mg Tab) 650 mg PO Q6 PRN PRN Reason: Pain, Mild (1-3) Last Admin: 04/30/18 11:51 Dose: 650 mg Apixaban (Eliquis) 2.5 mg PO DAILY [facility] Diltiazem HCl (Cardizem) 30 mg PO QID [facility] Last Admin: 05/01/18 09:07 Dose: 30 mg Famotidine (Pepcid) 20 mg PO DAILY [facility] Last Admin: 05/01/18 09:07 Dose: 20 mg Furosemide (Lasix) 20 mg PO BID [facility] Last Admin: 05/01/18 09:07 Dose: 20 mg Imipenem/Cilastatin Sodium 500 (mg/ Sodium Chloride) 100 mls @ 100 mls/hr IVPB Q12H [facility] PRN Reason: Protocol Last Admin: 05/01/18 08:04 Dose: 100 mls/hr Heparin Sodium/Sodium Chloride (Heparin 94497 Units/250ml 1/2 Normal Saline) 25 ,000 units in 250 mls @ 7.531 mls/hr IV .Q24H PRN; Protocol; 10 UNITS/KG/HR PRN Reason: ADJUST RATE PER PROTOCOL Last Admin: 04/30/18 21:00 Dose: 14 units/kg/hr, 10.543 mls/hr Potassium Chloride (Klor-Con 10) 10 meq PO BRK [facility] Last Admin: 05/01/18 08:05 Dose: 10 meq Propranolol HCl (Inderal) 10 mg PO TID [facility] Last Admin: 05/01/18 09:07 Dose: 10 mg - Labs Labs: 05/01/18 06:22 05/01/18 06:17 PT 16.0 SECONDS (9.7-12.2) H 04/28/18 16:55 INR 1.5 04/28/18 16:55 APTT 51 SECONDS (21-34) H D 05/01/18 06:22
--- NOTE | 2018-05-01 11:37 | CP.PCM.PN ---
<LuisFabiolacarin E - Last Filed: 05/01/18 19:11> Subjective - Date & Time of Evaluation Date of Evaluation: 05/01/18 Time of Evaluation: 09:00 - Subjective Subjective: Cardiology progress note (Dr. Alex's service) Patient was seen and examined at bedside. Patient was resting comfortably in bed in no acute distress. Patient denies any cardiac symptoms such as chest pain , palpitations, SOB, dizziness, lightheadedness. Objective - Vital Signs/Intake and Output Vital Signs (last 24 hours): Temp Pulse Resp BP Pulse Ox 98.8 F 90 22 129/65 98 04/30/18 21:24 05/01/18 08:02 05/01/18 08:02 05/01/18 09:07 05/01/18 08:02 Intake and Output: 05/01/18 05/01/18 06:59 18:59 Intake Total 494.8 381.6 Output Total 850 Balance -355.2 381.6 - Medications Medications: Current Medications Acetaminophen (Tylenol 325mg Tab) 650 mg PO Q6 PRN PRN Reason: Pain, Mild (1-3) Last Admin: 04/30/18 11:51 Dose: 650 mg Apixaban (Eliquis) 10 mg PO Q12H [facility] Stop: 05/08/18 06:01 Diltiazem HCl (Cardizem) 30 mg PO QID [facility] Last Admin: 05/01/18 09:07 Dose: 30 mg Famotidine (Pepcid) 20 mg PO DAILY [facility] Last Admin: 05/01/18 09:07 Dose: 20 mg Furosemide (Lasix) 20 mg PO BID [facility] Last Admin: 05/01/18 09:07 Dose: 20 mg Imipenem/Cilastatin Sodium 500 (mg/ Sodium Chloride) 100 mls @ 100 mls/hr IVPB Q12H NAN PRN Reason: Protocol Last Admin: 05/01/18 08:04 Dose: 100 mls/hr Heparin Sodium/Sodium Chloride (Heparin 62064 Units/250ml 1/2 Normal Saline) 25 ,000 units in 250 mls @ 7.531 mls/hr IV .Q24H PRN; Protocol; 10 UNITS/KG/HR PRN Reason: ADJUST RATE PER PROTOCOL Stop: 05/01/18 16:00 Last Admin: 04/30/18 21:00 Dose: 14 units/kg/hr, 10.543 mls/hr Potassium Chloride (Klor-Con 10) 10 meq PO BRK [facility] Last Admin: 05/01/18 08:05 Dose: 10 meq Propranolol HCl (Inderal) 10 mg PO TID [facility] Last Admin: 05/01/18 09:07 Dose: 10 mg - Labs Labs: 05/01/18 06:22 05/01/18 06:17 PT 16.0 SECONDS (9.7-12.2) H 04/28/18 16:55 INR 1.5 04/28/18 16:55 APTT 51 SECONDS (21-34) H D 05/01/18 06:22 - Constitutional Appears: Well, No Acute Distress - Head Exam Head Exam: ATRAUMATIC, NORMAL INSPECTION - Eye Exam Eye Exam: EOMI, Normal appearance - ENT Exam ENT Exam: Mucous Membranes Moist - Respiratory Exam Respiratory Exam: Clear to Ausculation Bilateral, NORMAL BREATHING PATTERN. absent: Prolonged Expiratory Phase, Rhonchi, Wheezes - Cardiovascular Exam Cardiovascular Exam: REGULAR RHYTHM, +S1, +S2 - GI/Abdominal Exam GI & Abdominal Exam: Soft, Normal Bowel Sounds. absent: Firm, Guarding, Rigid, Tenderness - Extremities Exam Extremities Exam: Normal Inspection. absent: Calf Tenderness, Pedal Edema, Tenderness - Neurological Exam Neurological Exam: Alert, Awake, Oriented x3 - Psychiatric Exam Psychiatric exam: Normal Affect - Skin Skin Exam: Normal Color Assessment and Plan (1) Atrial fibrillation, new onset Assessment & Plan: Patient is a 67 year old female with past medical history hypertension, myelofibrosis, chronic leukocytosis on treatment for myelofibrosis currently on treatment with hematology and oncology, Rae Jalloh, who was admitted from right flank pain and found to have a R Hydronephrosis and now s/p R ureteral stent. Cardiology consult was placed for new onset of atrial fibrillation with rapid ventricular response: Labs: - TSH: 0.53, WNL 1. Rule out PE, V/Q scan negative, D-Dimer is elevated (431), continuation with heparin drip - LE Venous doppler scan: Acute thrombosis of the right gastrocnemius with severe reduction of the venous return. No evidence of deep venous thrombosis in the left lower extremities 2. Rate controlled on Cardizem drip 125mg at 5mg/hr -> Cardizem discontinued. Currently cardizem 30mg PO QID (discontinued as patient is already on propranolol 20mg PO TID 3. V/Q scan is negative for PE, plans for possible YANI and cardioversion tomorrow 04/30/18 was cancelled due to conversion to NSR this am Status: Acute (2) DVT (deep venous thrombosis) Assessment & Plan: D-Dimer is elevated (431) LE Venous doppler scan: Acute thrombosis of the right gastrocnemius with severe reduction of the venous return. No evidence of deep venous thrombosis in the left lower extremities Medication: * Heparin drip Status: Acute (3) Elevated brain natriuretic peptide (BNP) level Assessment & Plan: BNP: 15,300 Chest X-ray (04/29/18): Right-sided PICC. Moderate pulmonary venous congestion. Cardiomegaly. Ectatic aorta. Echocardiogram (04/26/18): LV function is normal. EF (65-70%). Trace aortic regurgitation and moderate pulmonary hypertension Lasix 20mg PO BID; gentle diuresis in light of SOFIA Status: Acute (4) Hepatosplenomegaly Assessment & Plan: Abdominal/ Pelvis without contrast: . Prominent carrie hepatis with extensive upper abdominal varices and splenomegaly suspicious for pattern blood flow. No gross pattern of hepatic cirrhosis. Cryptogenic cirrhosis is a possibility. Clinically correlate further. As per GI, Dr. Méndez: it is not clear whether the splenomegaly and portal HTN are from thrombosi or perhaps from underlying cirrhosis. Will start on beta sanjuanita for variceal prophylaxis, and work up for causes of chronic liver disease. Medication for variceal ppx: * Propranolol 10mg PO BID---> 20mg TID Status: Acute (5) Hydronephrosis, right Assessment & Plan: Abdominal/ Pelvis without contrast: Right perinephric reaction is appreciated with mild to moderate right hydroureteronephrosis potentially on the basis of distal right ureteral stricture, lucent calculus or expelled calculus. No radiodense urolithiasis identified bilaterally including urinary bladder. Left kidney appears unremarkable. S/P ureteral stent (04/25/18) Status: Acute (6) Pyelonephritis due to Escherichia coli Assessment & Plan: Primaxin 500mg IV Q12H Status: Acute (7) Prophylactic measure Assessment & Plan: DVT: Heparin drip GI: Pepcid 20mg PO daily Plans for YNAI and cardioversion today cancelled due to conversion to NSR this am Recommendation for anticoagulation, Eliquis 5mg PO BID for 6 weeks if it is approved by hematology and oncology in light of thrombocytopenia. Outpatient patient follow up with cardiology, Dr. Alex 4-6 weeks after discharge All plans and management discussed with Dr. Alex Status: Acute <Alber Alex - Last Filed: 05/02/18 00:00> Objective - Vital Signs/Intake and Output Vital Signs (last 24 hours): Temp Pulse Resp BP Pulse Ox 98.5 F 86 29 H 115/64 98 05/01/18 16:09 05/01/18 20:02 05/01/18 20:02 05/01/18 20:02 05/01/18 20:02 Intake and Output: 05/01/18 05/02/18 18:59 06:59 Intake Total 1155.2 110.4 Output Total 600 200 Balance 555.2 -89.6 - Medications Medications: Current Medications Acetaminophen (Tylenol 325mg Tab) 650 mg PO Q6 PRN PRN Reason: Pain, Mild (1-3) Last Admin: 04/30/18 11:51 Dose: 650 mg Apixaban (Eliquis) 10 mg PO Q12H [facility] Stop: 05/08/18 06:01 Last Admin: 05/01/18 17:45 Dose: 10 mg Famotidine (Pepcid) 20 mg PO DAILY [facility] Last Admin: 05/01/18 09:07 Dose: 20 mg Furosemide (Lasix) 20 mg PO BID [facility] Last Admin: 05/01/18 17:44 Dose: 20 mg Cefepime HCl 0.5 gm/ Sodium (Chloride) 50 mls @ 100 mls/hr IVPB Q24H [facility] Potassium Chloride (Klor-Con 10) 10 meq PO BRK [facility] Last Admin: 05/01/18 08:05 Dose: 10 meq Propranolol HCl (Inderal) 20 mg PO TID [facility] Last Admin: 05/01/18 20:29 Dose: 20 mg - Labs Labs: 05/01/18 06:22 05/01/18 06:17 PT 16.0 SECONDS (9.7-12.2) H 04/28/18 16:55 INR 1.5 04/28/18 16:55 APTT 51 SECONDS (21-34) H D 05/01/18 06:22 Assessment and Plan - Assessment and Plan (Free Text) Assessment: Patient seen and evaluated personally by me Plan of care d/w the medical staff services coordinator and as documented
--- NOTE | 2018-05-01 12:31 | CP.CCUPN ---
<Sydni Arellano - Last Filed: 05/01/18 15:03> CCU Subjective - Physician Review Subjective (Free Text): ICU Progress note Patient seen and examined at bedside. She currently denies chest pain, shortness of breath, headache, dizziness, abdominal pain, nausea, vomiting, flank pain, leg pain. She offers no complaints today. She states she does not feel short of breath. CCU Objective - Vital Signs / Intake & Output Vital Signs (Last 4 hours): Vital Signs Temp Pulse Resp BP Pulse Ox 05/01/18 12:02 82 28 H 135/63 98 05/01/18 12:00 83 32 H 98 05/01/18 11:50 98.5 F 100 05/01/18 11:02 82 35 H 122/70 99 05/01/18 11:00 76 20 100 05/01/18 10:00 84 29 H 97 05/01/18 09:07 129/65 05/01/18 09:02 92 H 15 129/66 97 05/01/18 09:00 91 H 24 99 Intake and Output (Last 8hrs): Intake & Output 04/30/18 05/01/18 05/01/18 22:59 06:59 14:59 Intake Total 588.2 113.2 552.4 Output Total 650 600 150 Balance -61.8 -486.8 402.4 Intake: Intake, IV Amount 198.2 83.2 162.4 Right Forearm 83.2 83.2 62.4 Right PICC 115 100 Oral 390 30 390 Output: Urine 650 600 150 Urine, Voided 650 600 150 Other: # Voids Urine, Voided 1 1 1 # Bowel Movements 1 0 - Physical Exam Head: Positive for: Atraumatic, Normocephalic Extroacular Muscles: Positive for: EOMI Mouth: Positive for: Moist Mucous Membranes Respiratory/Chest: Positive for: Decreased Breath Sounds. Negative for: Respiratory Distress Cardiovascular: Positive for: Regular Rate and Rhythm, Other Abdomen: Positive for: Other (Enlarged liver palpable). Negative for: Tenderness, Distention, Guarding Back: Negative for: CVA Tenderness Upper Extremity: Positive for: NORMAL PULSES, Capillary Refill < 2s. Negative for: Edema Lower Extremity: Positive for: Edema (minimal bilateral lower extremity edema ) , NORMAL PULSES. Negative for: CALF TENDERNESS Neurological: Positive for: GCS=15, CN II-XII Intact Skin: Positive for: Warm, Dry, Normal Color, Other (Possible mild jaundice) Psychiatric: Positive for: Alert, Oriented x 3 - Medications Active Medications: Active Medications Generic Name Dose Route Start Last Admin Trade Name Freq PRN Reason Stop Dose Admin Acetaminophen 650 mg 04/26/18 17:00 04/30/18 11:51 Tylenol 325mg Tab PO 650 mg Q6 PRN Administration Pain, Mild (1-3) Apixaban 10 mg 05/01/18 18:00 Eliquis PO 05/08/18 06:01 Q12H NAN Diltiazem HCl 30 mg 04/30/18 11:15 05/01/18 09:07 Cardizem PO 30 mg QID NAN Administration Famotidine 20 mg 04/27/18 10:00 05/01/18 09:07 Pepcid PO 20 mg DAILY NAN Administration Furosemide 20 mg 04/29/18 10:15 05/01/18 09:07 Lasix PO 20 mg BID NAN Administration Imipenem/Cilastatin Sodium 500 100 mls @ 100 mls/hr 04/24/18 20:30 05/01/18 08:04 mg/ Sodium Chloride IVPB 100 mls/hr Q12H NAN Administration Protocol Heparin Sodium/Sodium Chloride 25,000 units in 250 mls @ 7.531 mls/hr 16:20 04/30/18 21:00 Heparin 53641 Units/250ml 1/2 Normal Saline IV 05/01/18 16:00 14 units/kg/ hr .Q24H PRN 10.543 mls/hr ADJUST RATE PER PROTOCOL Administration Protocol 10 UNITS/KG/HR Potassium Chloride 10 meq 04/28/18 18:15 05/01/18 08:05 Klor-Con 10 PO 10 meq BRK NAN Administration Propranolol HCl 10 mg 04/30/18 14:00 05/01/18 09:07 Inderal PO 10 mg TID NAN Administration - Patient Studies Lab Studies: Microbiology Studies 04/25/18 21:53 Blood Culture - Final Blood-Venous NO GROWTH AFTER 5 DAYS Gram Stain - Final TEST NOT PERFORMED 04/25/18 20:00 Blood Culture - Final Blood-Venous NO GROWTH AFTER 5 DAYS Gram Stain - Final TEST NOT PERFORMED Lab Studies 05/01/18 05/01/18 05/01/18 Range/Units 06:22 06:22 06:17 WBC 49.5 H* (4.8-10.8) K/uL RBC 3.35 L (3.80-5.20) Mil/uL Hgb 9.5 L (11.0-16.0) g/dL Hct 30.2 L (34.0-47.0) % MCV 90.2 (81.0-99.0) fL MCH 28.3 (27.0-31.0) pg MCHC 31.3 L (33.0-37.0) g/dL RDW 19.1 H (11.5-14.5) % Plt Count 103 L D (130-400) K/uL MPV 12.5 H (7.2-11.7) fL Neut % (Auto) 76.0 H (50.0-75.0) % Lymph % (Auto) 4.9 L (20.0-40.0) % [place] % (Auto) 15.6 H (0.0-10.0) % Eos % (Auto) 2.1 (0.0-4.0) % Baso % (Auto) 1.4 (0.0-2.0) % Neut # (Auto) 37.6 H (1.8-7.0) K/uL Lymph # (Auto) 2.4 (1.0-4.3) K/uL [place] # (Auto) 7.7 H (0.0-0.8) K/uL Eos # (Auto) 1.0 H (0.0-0.7) K/uL Baso # (Auto) 0.7 H (0.0-0.2) K/uL Neutrophils % (Manual) 59 (50-75) % Band Neutrophils % 12 H* (0-2) % Lymphocytes % (Manual) 2 L (20-40) % Reactive Lymphs % 1 H (0-0) % Monocytes % (Manual) 8 (0-10) % Eosinophils % (Manual) 1 (0-4) % Metamyelocytes % 5 H (0-0) % Myelocytes % 11 H (0-0) % Plasma Cell % (Manual) 1 H (0-0) Nucleated RBC % 1 H (0-0) % Toxic Granulation Present Platelet Estimate Slightly decreased L (NORMAL) Large Platelets Present Hypochromasia (manual) Slight Anisocytosis (manual) Moderate Ovalocytes Slight APTT 51 H D (21-34) SECONDS Sodium 139 (132-148) mmol/L Potassium 3.9 (3.6-5.2) mmol/L Chloride 106 (98-107) mmol/L Carbon Dioxide 25 (22-30) mmol/L Anion Gap 13 (10-20) BUN 43 H (7-17) mg/dL Creatinine 2.2 H (0.7-1.2) mg/dL Est GFR ( Amer) 27 Est GFR (Non-Af Amer) 22 Random Glucose 77 (65-105) mg/dL Calcium 8.3 L (8.6-10.4) mg/dl Phosphorus 2.0 L (2.5-4.5) mg/dL Magnesium 1.8 (1.6-2.3) mg/dL Total Bilirubin 0.6 (0.2-1.3) mg/dL AST 23 (14-36) U/L ALT 18 (9-52) U/L Alkaline Phosphatase 59 (38-126) U/L Total Protein 5.7 L (6.3-8.3) g/dL Albumin 2.9 L (3.5-5.0) g/dL Globulin 2.8 (2.2-3.9) gm/dL Albumin/Globulin Ratio 1.0 (1.0-2.1) 04/30/18 Range/Units 13:12 WBC (4.8-10.8) K/uL RBC (3.80-5.20) Mil/uL Hgb (11.0-16.0) g/dL Hct (34.0-47.0) % MCV (81.0-99.0) fL MCH (27.0-31.0) pg MCHC (33.0-37.0) g/dL RDW (11.5-14.5) % Plt Count (130-400) K/uL MPV (7.2-11.7) fL Neut % (Auto) (50.0-75.0) % Lymph % (Auto) (20.0-40.0) % [place] % (Auto) (0.0-10.0) % Eos % (Auto) (0.0-4.0) % Baso % (Auto) (0.0-2.0) % Neut # (Auto) (1.8-7.0) K/uL Lymph # (Auto) (1.0-4.3) K/uL [place] # (Auto) (0.0-0.8) K/uL Eos # (Auto) (0.0-0.7) K/uL Baso # (Auto) (0.0-0.2) K/uL Neutrophils % (Manual) (50-75) % Band Neutrophils % (0-2) % Lymphocytes % (Manual) (20-40) % Reactive Lymphs % (0-0) % Monocytes % (Manual) (0-10) % Eosinophils % (Manual) (0-4) % Metamyelocytes % (0-0) % Myelocytes % (0-0) % Plasma Cell % (Manual) (0-0) Nucleated RBC % (0-0) % Toxic Granulation Platelet Estimate (NORMAL) Large Platelets Hypochromasia (manual) Anisocytosis (manual) Ovalocytes APTT 56 H D (21-34) SECONDS Sodium (132-148) mmol/L Potassium (3.6-5.2) mmol/L Chloride (98-107) mmol/L Carbon Dioxide (22-30) mmol/L Anion Gap (10-20) BUN (7-17) mg/dL Creatinine (0.7-1.2) mg/dL Est GFR ( Amer) Est GFR (Non-Af Amer) Random Glucose (65-105) mg/dL Calcium (8.6-10.4) mg/dl Phosphorus (2.5-4.5) mg/dL Magnesium (1.6-2.3) mg/dL Total Bilirubin (0.2-1.3) mg/dL AST (14-36) U/L ALT (9-52) U/L Alkaline Phosphatase (38-126) U/L Total Protein (6.3-8.3) g/dL Albumin (3.5-5.0) g/dL Globulin (2.2-3.9) gm/dL Albumin/Globulin Ratio (1.0-2.1) Laboratory Results - last 24 hr 04/30/18 05/01/18 05/01/18 13:12 06:17 06:22 WBC 49.5 H* RBC 3.35 L Hgb 9.5 L Hct 30.2 L MCV 90.2 MCH 28.3 MCHC 31.3 L RDW 19.1 H Plt Count 103 L D MPV 12.5 H Neut % (Auto) 76.0 H Lymph % (Auto) 4.9 L [place] % (Auto) 15.6 H Eos % (Auto) 2.1 Baso % (Auto) 1.4 Neut # (Auto) 37.6 H Lymph # (Auto) 2.4 [place] # (Auto) 7.7 H Eos # (Auto) 1.0 H Baso # (Auto) 0.7 H Neutrophils % (Manual) 59 Band Neutrophils % 12 H* Lymphocytes % (Manual) 2 L Reactive Lymphs % 1 H Monocytes % (Manual) 8 Eosinophils % (Manual) 1 Metamyelocytes % 5 H Myelocytes % 11 H Plasma Cell % (Manual) 1 H Nucleated RBC % 1 H Toxic Granulation Present Platelet Estimate Slightly decreased L Large Platelets Present Hypochromasia (manual) Slight Anisocytosis (manual) Moderate Ovalocytes Slight APTT 56 H D Sodium 139 Potassium 3.9 Chloride 106 Carbon Dioxide 25 Anion Gap 13 BUN 43 H Creatinine 2.2 H Est GFR ( Amer) 27 Est GFR (Non-Af Amer) 22 Random Glucose 77 Calcium 8.3 L Phosphorus 2.0 L Magnesium 1.8 Total Bilirubin 0.6 AST 23 ALT 18 Alkaline Phosphatase 59 Total Protein 5.7 L Albumin 2.9 L Globulin 2.8 Albumin/Globulin Ratio 1.0 05/01/18 06:22 WBC RBC Hgb Hct MCV MCH MCHC RDW Plt Count MPV Neut % (Auto) Lymph % (Auto) [place] % (Auto) Eos % (Auto) Baso % (Auto) Neut # (Auto) Lymph # (Auto) [place] # (Auto) Eos # (Auto) Baso # (Auto) Neutrophils % (Manual) Band Neutrophils % Lymphocytes % (Manual) Reactive Lymphs % Monocytes % (Manual) Eosinophils % (Manual) Metamyelocytes % Myelocytes % Plasma Cell % (Manual) Nucleated RBC % Toxic Granulation Platelet Estimate Large Platelets Hypochromasia (manual) Anisocytosis (manual) Ovalocytes APTT 51 H D Sodium Potassium Chloride Carbon Dioxide Anion Gap BUN Creatinine Est GFR ( Amer) Est GFR (Non-Af Amer) Random Glucose Calcium Phosphorus Magnesium Total Bilirubin AST ALT Alkaline Phosphatase Total Protein Albumin Globulin Albumin/Globulin Ratio Review of Systems - Constitutional Constitutional: absent: Fever, Chills - Cardiovascular Cardiovascular: absent: Chest Pain, Dyspnea - Respiratory Respiratory: absent: Cough, Dyspnea - Gastrointestinal Gastrointestinal: absent: Abdominal Pain, Nausea, Vomiting - Genitourinary Genitourinary: absent: Dysuria - Musculoskeletal Musculoskeletal: absent: Back Pain Critical Care Progress Note - Nutrition Nutrition: Nutrition Category Date Time Status Heart Healthy Diet [DIET] Diets 04/30/18 Breakfast Active Assessment/Plan - Assessment and Plan (Free Text) Assessment: 67 year old female with history of arthritis, HTN, myelofibrosis with chronic leukocytosis who was admitted for right flank pain following failed outpatient treatment of pyelonephritis. CT revealed right hydroureteronephrosis with ureteral stricture, and she is s/p ureteral stent insertion by Dr. Irvin on 04/25/18. Patient developed Atrial fibrillation, currently on PO Cardizem. RLE DVT, on Heparin drip currently. Plan: Neuro: Alert and oriented x3 Cardiovascular: Currently in Sinus rhythm Cardiology Dr. Alex consulted, help appreciated On Cardizem PO 30QID On Heparin drip, will discontinue drip after Eliquis 10mg BID is started. ECHO: Left ventricle systolic function is normal. EF 65-70%. Transmitral doppler flow pattern is Grade I-abnormal relaxation pattern. Trace aortic regurgitation. Moderate pulmonary HTN. Dopplers: Acute thrombosis of right gastrocnemius vein with severe reduction of venous return. VQ scan Low probability for pulmonary embolism. Right PICC line in place proBNP 12130 Pulmonary: 96% on NC CXR: Improving CHF Lasix 20mg PO BID ordered. GI: Hepatosplenomegaly with portal HTN and portosystemic varices CT abdomen: 1. Right perinephric reaction is appreciated with mild to moderate right hydroureteronephrosis potentially on the basis of distal right ureteral stricture, lucent calculus or expelled calculus. No radiodense urolithiasis identified bilaterally including urinary bladder. Left kidney appears unremarkable. 2. Prominent carrie hepatis with extensive upper abdominal varices and splenomegaly suspicious for pattern blood flow. No gross pattern of hepatic cirrhosis. Cryptogenic cirrhosis is a possibility. Clinically correlate further. 3. Large calculus within the gallbladder with the gallbladder otherwise unremarkable appearing. CT abdomen 1. 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 Persistent mild right hydronephrosis and mild diffuse dilatation of the right ureteral with surrounding inflammatory changes without evidence for obstructing stones. Pyelonephritis/distal ureteral stricture is a consideration. Apparent mild mural thickening of the urinary bladder wall could also be related to cystitis. Please correlate with urine analysis. 3. No other significant interval change. Abdomen US: Normal splenic vein not well delineated on this study. Prominent varices noted surrounding the splenic vein. Clinical correlation. Dilated portal vein with increased velocity noted in the portal vein. Portal vein flow appears turbulent. Prominent varices are noted at the level of the carrie hepatis. Clinical correlation. Enlarged liver measuring 24.7 centimeters. Nodular and cirrhotic contour. Increased echogenicity of the hepatic parenchymal cortex suggestive for hepatic parenchymal disease versus fatty infiltration. Clinical correlation. Cholelithiasis. Gallbladder wall thickness measures 2.6 millimeters. Negative sonographic Hidalgo's sign. Spleen is markedly enlarged measuring up to 20 centimeters length. Increased echogenicity of the bilateral renal parenchymal cortices suggestive for medical renal disease. Small right pleural effusion. Abdomen US limited: Turbulent flow within the splenic vein without evidence of gross thrombus. Clinical correlation. Turbulent flow within the portal vein without gross thrombus. Patent flow in the hepatic veins. Right pleural effusion noted.Pancreas not well visualized. Pepcid 20mg PO daily Propranolol 10mg PO TID Dr. Méndez consulted, help appreciated antismooth muscle negative TRACEY 6 profile negative Hep panel negative CT chest/abdomen/pelvis: Cardiomegaly. Small pericardial effusion. Mild edema/ infection. Small bilateral pleural effusions. Bibasilar compressive consolidations.Hepatomegaly with enlargement of the right hepatic and caudate lobe. The left hepatic lobe is comparatively small in size. Splenomegaly. Ill- defined indeterminate 1.5 x 2.0 cm low-density lesion in the posterior aspect of the spleen. Solitary large calcified gallstone. Right sided ureteral stent. Mild right-sided hydronephrosis. Diminutive right kidney. Extensive perisplenic , splenorenal, short gastric common esophageal varices. Enlarged portal vein inadequately assessed due to lack of IV contrast. Sub cm mesenteric and retroperitoneal lymph nodes, nonspecific. Diverticulosis without CT evidence of acute diverticulitis. Mild wall thickening of the left colon; correlate clinically for possibility of colitis. Additional findings as above Renal s/p right ureteral stent with Dr. Irvin on 04/25/[address] Irvin consulted, help appreciated Strict I&Os BUN/Cr 43/2.2 Endo: maintain euglycemia Heme/Onc: Hx of myelofibrosis with chronic leukocytosis Dr. Mcbride consulted, help appreciated White count 49.5 H/H 9.5/30.2 Platelets 82 ID White count elevated at 49.5 with bands of 12 UA 1+ leuk esterase positive for nitrates Primaxin 500mg IV Dr. Jackson consulted, help appreciated Initial Blood Cultures negative, repeat blood cultures negative Urine culture multiple species Nares MRSA not detected PPX: SCDs, Pepcid Case discussed with Dr. Fragoso <Terrance Fragoso - Last Filed: 05/01/18 16:05> CCU Objective - Vital Signs / Intake & Output Vital Signs (Last 4 hours): Vital Signs Temp Pulse Resp BP Pulse Ox 05/01/18 15:02 86 14 113/70 96 05/01/18 15:00 85 31 H 98 05/01/18 14:02 83 20 113/66 100 05/01/18 14:00 84 21 100 05/01/18 13:03 87 28 H 113/63 05/01/18 13:00 86 27 H 05/01/18 12:02 82 28 H 135/63 98 05/01/18 12:00 83 32 H 98 05/01/18 11:50 98.5 F 100 Intake and Output (Last 8hrs): Intake & Output 05/01/18 05/01/18 05/01/18 06:59 14:59 22:59 Intake Total 113.2 843.6 60.4 Output Total 600 300 200 Balance -486.8 543.6 -139.6 Intake: Intake, IV Amount 83.2 193.6 10.4 Right Forearm 83.2 93.6 10.4 Right PICC 100 Oral 30 650 50 Output: Urine 600 300 200 Urine, Voided 600 300 200 Other: # Voids Urine, Voided 1 0 1 # Bowel Movements 0 0 - Medications Active Medications: Active Medications Generic Name Dose Route Start Last Admin Trade Name Freq PRN Reason Stop Dose Admin Acetaminophen 650 mg 04/26/18 17:00 04/30/18 11:51 Tylenol 325mg Tab PO 650 mg Q6 PRN Administration Pain, Mild (1-3) Apixaban 10 mg 05/01/18 18:00 Eliquis PO 05/08/18 06:01 Q12H NAN Diltiazem HCl 30 mg 04/30/18 11:15 05/01/18 13:38 Cardizem PO 30 mg QID NAN Administration Famotidine 20 mg 04/27/18 10:00 05/01/18 09:07 Pepcid PO 20 mg DAILY NAN Administration Furosemide 20 mg 04/29/18 10:15 05/01/18 09:07 Lasix PO 20 mg BID NAN Administration Imipenem/Cilastatin Sodium 500 100 mls @ 100 mls/hr 04/24/18 20:30 05/01/18 08:04 mg/ Sodium Chloride IVPB 100 mls/hr Q12H NAN Administration Protocol Heparin Sodium/Sodium Chloride 25,000 units in 250 mls @ 7.531 mls/hr 16:20 04/30/18 21:00 Heparin 16366 Units/250ml 1/2 Normal Saline IV 05/01/18 16:00 14 units/kg/ hr .Q24H PRN 10.543 mls/hr ADJUST RATE PER PROTOCOL Administration Protocol 10 UNITS/KG/HR Potassium Chloride 10 meq 04/28/18 18:15 05/01/18 08:05 Klor-Con 10 PO 10 meq BRK NAN Administration Propranolol HCl 10 mg 04/30/18 14:00 05/01/18 13:38 Inderal PO 10 mg TID NAN Administration - Patient Studies Lab Studies: Microbiology Studies 04/25/18 21:53 Blood Culture - Final Blood-Venous NO GROWTH AFTER 5 DAYS Gram Stain - Final TEST NOT PERFORMED 04/25/18 20:00 Blood Culture - Final Blood-Venous NO GROWTH AFTER 5 DAYS Gram Stain - Final TEST NOT PERFORMED Lab Studies 05/01/18 05/01/18 05/01/18 Range/Units 06:22 06:22 06:17 WBC 49.5 H* (4.8-10.8) K/uL RBC 3.35 L (3.80-5.20) Mil/uL Hgb 9.5 L (11.0-16.0) g/dL Hct 30.2 L (34.0-47.0) % MCV 90.2 (81.0-99.0) fL MCH 28.3 (27.0-31.0) pg MCHC 31.3 L (33.0-37.0) g/dL RDW 19.1 H (11.5-14.5) % Plt Count 103 L D (130-400) K/uL MPV 12.5 H (7.2-11.7) fL Neut % (Auto) 76.0 H (50.0-75.0) % Lymph % (Auto) 4.9 L (20.0-40.0) % [place] % (Auto) 15.6 H (0.0-10.0) % Eos % (Auto) 2.1 (0.0-4.0) % Baso % (Auto) 1.4 (0.0-2.0) % Neut # (Auto) 37.6 H (1.8-7.0) K/uL Lymph # (Auto) 2.4 (1.0-4.3) K/uL [place] # (Auto) 7.7 H (0.0-0.8) K/uL Eos # (Auto) 1.0 H (0.0-0.7) K/uL Baso # (Auto) 0.7 H (0.0-0.2) K/uL Neutrophils % (Manual) 59 (50-75) % Band Neutrophils % 12 H* (0-2) % Lymphocytes % (Manual) 2 L (20-40) % Reactive Lymphs % 1 H (0-0) % Monocytes % (Manual) 8 (0-10) % Eosinophils % (Manual) 1 (0-4) % Metamyelocytes % 5 H (0-0) % Myelocytes % 11 H (0-0) % Plasma Cell % (Manual) 1 H (0-0) Nucleated RBC % 1 H (0-0) % Toxic Granulation Present Platelet Estimate Slightly decreased L (NORMAL) Large Platelets Present Hypochromasia (manual) Slight Anisocytosis (manual) Moderate Ovalocytes Slight APTT 51 H D (21-34) SECONDS Sodium 139 (132-148) mmol/L Potassium 3.9 (3.6-5.2) mmol/L Chloride 106 (98-107) mmol/L Carbon Dioxide 25 (22-30) mmol/L Anion Gap 13 (10-20) BUN 43 H (7-17) mg/dL Creatinine 2.2 H (0.7-1.2) mg/dL Est GFR ( Amer) 27 Est GFR (Non-Af Amer) 22 Random Glucose 77 (65-105) mg/dL Calcium 8.3 L (8.6-10.4) mg/dl Phosphorus 2.0 L (2.5-4.5) mg/dL Magnesium 1.8 (1.6-2.3) mg/dL Total Bilirubin 0.6 (0.2-1.3) mg/dL AST 23 (14-36) U/L ALT 18 (9-52) U/L Alkaline Phosphatase 59 (38-126) U/L Total Protein 5.7 L (6.3-8.3) g/dL Albumin 2.9 L (3.5-5.0) g/dL Globulin 2.8 (2.2-3.9) gm/dL Albumin/Globulin Ratio 1.0 (1.0-2.1) Laboratory Results - last 24 hr 05/01/18 05/01/18 05/01/18 06:17 06:22 06:22 WBC 49.5 H* RBC 3.35 L Hgb 9.5 L Hct 30.2 L MCV 90.2 MCH 28.3 MCHC 31.3 L RDW 19.1 H Plt Count 103 L D MPV 12.5 H Neut % (Auto) 76.0 H Lymph % (Auto) 4.9 L [place] % (Auto) 15.6 H Eos % (Auto) 2.1 Baso % (Auto) 1.4 Neut # (Auto) 37.6 H Lymph # (Auto) 2.4 [place] # (Auto) 7.7 H Eos # (Auto) 1.0 H Baso # (Auto) 0.7 H Neutrophils % (Manual) 59 Band Neutrophils % 12 H* Lymphocytes % (Manual) 2 L Reactive Lymphs % 1 H Monocytes % (Manual) 8 Eosinophils % (Manual) 1 Metamyelocytes % 5 H Myelocytes % 11 H Plasma Cell % (Manual) 1 H Nucleated RBC % 1 H Toxic Granulation Present Platelet Estimate Slightly decreased L Large Platelets Present Hypochromasia (manual) Slight Anisocytosis (manual) Moderate Ovalocytes Slight APTT 51 H D Sodium 139 Potassium 3.9 Chloride 106 Carbon Dioxide 25 Anion Gap 13 BUN 43 H Creatinine 2.2 H Est GFR ( Amer) 27 Est GFR (Non-Af Amer) 22 Random Glucose 77 Calcium 8.3 L Phosphorus 2.0 L Magnesium 1.8 Total Bilirubin 0.6 AST 23 ALT 18 Alkaline Phosphatase 59 Total Protein 5.7 L Albumin 2.9 L Globulin 2.8 Albumin/Globulin Ratio 1.0 Critical Care Progress Note - Nutrition Nutrition: Nutrition Category Date Time Status Heart Healthy Diet [DIET] Diets 04/30/18 Breakfast Active Attending/Attestation - Attestation I have personally seen and examined this patient.: Yes I have fully participated in the care of the patient.: Yes I have reviewed all pertinent clinical information: Yes Notes (Text): 05/01/18 15:33 I have seen and examined the patient. Medical records, lab studies, and imaging were reviewed by me and a management plan was formulated on multidisciplinary rounds with resident Dr. Arellano. I agree with their documented assessment and plan. Patient has myelofibrosis (MF) with hepatosplenomegaly. P/w sepsis secondary to pyelonephritis, continue Primaxin. WBC still rising, most likely secondary to MF. Spoke with Hem/Onc who doesn't currently believe this is acute leukemia. BM biopsy would be definitive, but patient has been in these numbers previously with biopsy negative (several times). Critical Care Time 35 minutes. Multi-disciplinary rounds were performed with house staff, nursing, speech therapy, respiratory therapy, pharmacy and nutrition with integrated input from the primary team/attending and other consulting services. The documented time is cumulative and includes review of patient data/exams/labs/chart review and examination of the patient on rounds and throughout the day; time is exclusive of any procedures or teaching time.
--- NOTE | 2018-05-01 13:41 | CP.PCM.PN ---
Subjective - Date & Time of Evaluation Date of Evaluation: 05/01/18 Time of Evaluation: 13:15 - Subjective Subjective: f/u varices, pVT. Son at bedside. Reports feeling better No CP, SOB, HILL, cough, RB, melena, SZ, cough Objective - Vital Signs/Intake and Output Vital Signs (last 24 hours): Temp Pulse Resp BP Pulse Ox 98.5 F 82 28 H 135/63 98 05/01/18 11:50 05/01/18 12:02 05/01/18 12:02 05/01/18 12:02 05/01/18 12:02 Intake and Output: 05/01/18 05/01/18 06:59 18:59 Intake Total 494.8 722.8 Output Total 850 300 Balance -355.2 422.8 - Medications Medications: Current Medications Acetaminophen (Tylenol 325mg Tab) 650 mg PO Q6 PRN PRN Reason: Pain, Mild (1-3) Last Admin: 04/30/18 11:51 Dose: 650 mg Apixaban (Eliquis) 10 mg PO Q12H [facility] Stop: 05/08/18 06:01 Diltiazem HCl (Cardizem) 30 mg PO QID [facility] Last Admin: 05/01/18 13:38 Dose: 30 mg Famotidine (Pepcid) 20 mg PO DAILY [facility] Last Admin: 05/01/18 09:07 Dose: 20 mg Furosemide (Lasix) 20 mg PO BID [facility] Last Admin: 05/01/18 09:07 Dose: 20 mg Imipenem/Cilastatin Sodium 500 (mg/ Sodium Chloride) 100 mls @ 100 mls/hr IVPB Q12H [facility] PRN Reason: Protocol Last Admin: 05/01/18 08:04 Dose: 100 mls/hr Heparin Sodium/Sodium Chloride (Heparin 17748 Units/250ml 1/2 Normal Saline) 25 ,000 units in 250 mls @ 7.531 mls/hr IV .Q24H PRN; Protocol; 10 UNITS/KG/HR PRN Reason: ADJUST RATE PER PROTOCOL Stop: 05/01/18 16:00 Last Admin: 04/30/18 21:00 Dose: 14 units/kg/hr, 10.543 mls/hr Potassium Chloride (Klor-Con 10) 10 meq PO BRK [facility] Last Admin: 05/01/18 08:05 Dose: 10 meq Propranolol HCl (Inderal) 10 mg PO TID NAN Last Admin: 05/01/18 13:38 Dose: 10 mg - Labs Labs: 05/01/18 06:22 05/01/18 06:17 PT 16.0 SECONDS (9.7-12.2) H 04/28/18 16:55 INR 1.5 04/28/18 16:55 APTT 51 SECONDS (21-34) H D 05/01/18 06:22 - Constitutional Appears: Non-toxic - Respiratory Exam Respiratory Exam: Clear to Ausculation Bilateral - Cardiovascular Exam Cardiovascular Exam: RRR - GI/Abdominal Exam GI & Abdominal Exam: Soft, Normal Bowel Sounds. absent: Tenderness - Neurological Exam Neurological Exam: Alert, Awake Assessment and Plan (1) Portal vein thrombosis Assessment & Plan: On heparin. Myelofibrosis Status: Acute (2) Anemia Status: Acute (3) Hepatosplenomegaly Status: Acute (4) Leucocytosis Status: Acute (5) Myelofibrosis Status: Acute (6) Thrombocytopenia Status: Acute
--- NOTE | 2018-05-01 13:59 | CT ---
Date of service: 05/01/18 CT chest, abdomen, and pelvis without IV contrast Indication: Possible infiltrates Technique: Contiguous axial images of the chest, abdomen, and pelvis without oral or IV contrast. Coronal and Sagittal reformats generated and reviewed. This CT exam was performed using 1 or more of the following dose reduction techniques: Automated exposure control, adjustment of the MAA and/or kV according to patient size, and/or use of iterative reconstruction technique. Radiation dose: Total exam DLP = 1485.96 MGy-cm. Comparison: Chest x-ray performed 05/01/18, abdominal limited ultrasound performed 04/27/18, CT abdomen and pelvis without contrast performed 04/24/18 Findings: Visualized portions of the inferior thyroid gland appears heterogeneous. The mediastinal and hilar vascular structures appear within normal limits. Cardiomegaly. Small pericardial effusion. Azygos lobe, anatomic variant. Mild edema/infection. Small bilateral pleural effusions. Bibasilar compressive consolidations. No pneumothorax. Hepatomegaly with enlargement of the right hepatic and caudate lobe. The left hepatic lobe is comparatively small in size. Splenomegaly. Ill-defined 1.5 x 2.0 cm low-density lesion in the posterior aspect of the spleen (series 6, image 72). Solitary large calcified gallstone. Right sided ureteral stent. Mild right-sided hydronephrosis. Diminutive right kidney. The left kidney appears unremarkable without hydronephrosis or obstructing calculus. Pancreatic atrophy. The adrenal glands are not well visualized. Extensive perisplenic, splenorenal, short gastric common esophageal varices. Enlarged portal vein inadequately assessed due to lack of IV contrast. Sub cm mesenteric and retroperitoneal lymph nodes, nonspecific. The stomach is nondistended.Lack of oral contrast limits evaluation for bowel pathology. The bowel loops appear within normal limits of caliber without evidence of intestinal obstruction. Diverticulosis without CT evidence of acute diverticulitis. Mild wall thickening of the left colon; correlate clinically for possibility of colitis. There is no definite free air. Uterus is present. The urinary bladder appears unremarkable. Small pelvic free fluid. Degenerative changes of the spine. Osseous demineralization. Impression: Cardiomegaly. Small pericardial effusion. Mild edema/infection. Small bilateral pleural effusions. Bibasilar compressive consolidations. Hepatomegaly with enlargement of the right hepatic and caudate lobe. The left hepatic lobe is comparatively small in size. Splenomegaly. Ill-defined indeterminate 1.5 x 2.0 cm low-density lesion in the posterior aspect of the spleen. Solitary large calcified gallstone. Right sided ureteral stent. Mild right-sided hydronephrosis. Diminutive right kidney. Extensive perisplenic, splenorenal, short gastric common esophageal varices. Enlarged portal vein inadequately assessed due to lack of IV contrast. Sub cm mesenteric and retroperitoneal lymph nodes, nonspecific. Diverticulosis without CT evidence of acute diverticulitis. Mild wall thickening of the left colon; correlate clinically for possibility of colitis. Additional findings as above.
--- NOTE | 2018-05-01 15:09 | RAD ---
Date of service: 05/01/2018 HISTORY: CHF. COMPARISON: 04/28/2018. FINDINGS: LUNGS: Improving pulmonary vascular congestion. No discrete infiltrates. PLEURA: Small right pleural effusion. CARDIOVASCULAR: Cardiomegaly/improving CHF. PICC line in satisfactory position unchanged. OSSEOUS STRUCTURES: No significant abnormalities. VISUALIZED UPPER ABDOMEN: Normal. OTHER FINDINGS: None. IMPRESSION: Improving CHF.
[2018-05-01 19:25] LABS: SQUAMOUS EPITHIAL 3 /hpf (0-5); URINE BACTERIA RARE (<OCC); URINE BILIRUBIN NEGATIVE (NEGATIVE); URINE BLOOD 1+ (NEGATIVE); URINE CLARITY Hazy (Clear); URINE COLOR Yellow (YELLOW); URINE GLUCOSE (UA) 1+ mg/dL (Normal); URINE LEUKOCYTE ESTERASE 3+ Leu/uL (Negative); URINE PROTEIN 2+ mg/dL (NEGATIVE)
--- NOTE | 2018-05-01 20:03 | CP.PCM.PN ---
Subjective - Date & Time of Evaluation Date of Evaluation: 05/01/18 Time of Evaluation: 19:56 - Subjective Subjective: INFECTIOUS DISEASE PROGRESS NOTES JANY PATTERSON MD, FACP ICU #5 CHART REVIEWED PT EXAMINED CASE DISCUSSED CASE DISCUSSED WITH PT, SON, DR Dhillon, DR Hill AND DR PAUL, CLINICALLY PT LOOKS BETTER THAN ON ADMISSION, AFEBRILE, BREATHING BETTER, HEART RATE CONTROLLED HERE WBC HAS INCREASED WITH BANDS ON ROUTINE SCAN-HAVE RECOMMENDED REPEAT BLOOD C/S X 2 1 HOURS APART, UNRINALYSIS AND URINE C/S, CBC C MANUAL DIFF NOT MACHINE READ, CMP, WILL DESCALATE PRIMAXIN TO MAXIPIME 1GM OD. TO CHECK URINE FOR AFB SMEAR AND C/S. - Physical Exam Head: Positive for: Atraumatic, Normocephalic Extroacular Muscles: Positive for: EOMI Mouth: Positive for: Moist Mucous Membranes Respiratory/Chest: Positive for: Decreased Breath Sounds. Negative for: Respiratory Distress Cardiovascular: Positive for: Regular Rate and Rhythm, Other Abdomen: Positive for: Other (Enlarged liver palpable). Negative for: Tenderness, Distention, Guarding Back: Negative for: CVA Tenderness Upper Extremity: Positive for: NORMAL PULSES, Capillary Refill < 2s. Negative for: Edema Lower Extremity: Positive for: Edema (minimal bilateral lower extremity edema ), NORMAL PULSES. Negative for: CALF TENDERNESS Neurological: Positive for: GCS=15, CN II-XII Intact Skin: Positive for: Warm, Dry, Normal Color, Other (Possible mild jaundice) Psychiatric: Positive for: Alert, Oriented x 3 QUESTION OF PORTAL VEIN FIBROSIS NOTED-ON HEPARIN LIKE DRUGS. CLINICALLY STABLE, BUT HER DIFF AND URINE TESTS ARE PROBLEMATICALLY. JANY PATTERSON MD, FACP Objective - Vital Signs/Intake and Output Vital Signs (last 24 hours): Temp Pulse Resp BP Pulse Ox 98.5 F 88 36 H 115/67 93 L 05/01/18 16:09 05/01/18 19:02 05/01/18 19:02 05/01/18 19:02 05/01/18 19:02 Intake and Output: 05/01/18 05/02/18 18:59 06:59 Intake Total 1155.2 100 Output Total 600 Balance 555.2 100 - Medications Medications: Current Medications Acetaminophen (Tylenol 325mg Tab) 650 mg PO Q6 PRN PRN Reason: Pain, Mild (1-3) Last Admin: 04/30/18 11:51 Dose: 650 mg Apixaban (Eliquis) 10 mg PO Q12H [facility] Stop: 05/08/18 06:01 Last Admin: 05/01/18 17:45 Dose: 10 mg Famotidine (Pepcid) 20 mg PO DAILY [facility] Last Admin: 05/01/18 09:07 Dose: 20 mg Furosemide (Lasix) 20 mg PO BID [facility] Last Admin: 05/01/18 17:44 Dose: 20 mg Imipenem/Cilastatin Sodium 500 (mg/ Sodium Chloride) 100 mls @ 100 mls/hr IVPB Q12H [facility] PRN Reason: Protocol Last Admin: 05/01/18 08:04 Dose: 100 mls/hr Potassium Chloride (Klor-Con 10) 10 meq PO BRK [facility] Last Admin: 05/01/18 08:05 Dose: 10 meq Propranolol HCl (Inderal) 20 mg PO TID NAN - Labs Labs: 05/01/18 06:22 05/01/18 06:17 PT 16.0 SECONDS (9.7-12.2) H 04/28/18 16:55 INR 1.5 04/28/18 16:55 APTT 51 SECONDS (21-34) H D 05/01/18 06:22
[2018-05-01] MEDS ORDERED: Cefepime IV 1 gm in Dextrose 1 GM/50 ML BAG IVPB STA (20:04)
--- NOTE | 2018-05-01 20:28 | CP.PCM.PN ---
Subjective - Date & Time of Evaluation Date of Evaluation: 05/01/18 Time of Evaluation: 20:28 - Subjective Subjective: Today patient feeling much better. Her oxygen saturation in room air is 94%. No feeling of weakness and tiredness present. Vital signs are stable. Chest good air entry regular heart sound nontender abdominal pedal edema Patient is currently on heparin drip. Elevated WBC noted. Discussed with the oncologist. Possibly the white count elevation related to her myelodysplasia. We will continue to monitor. According to oncologist will start the medication for the myelodysplasia once the infection is under control. Objective - Vital Signs/Intake and Output Vital Signs (last 24 hours): Temp Pulse Resp BP Pulse Ox 98.5 F 88 36 H 115/67 93 L 05/01/18 16:09 05/01/18 19:02 05/01/18 19:02 05/01/18 19:02 05/01/18 19:02 Intake and Output: 05/01/18 05/02/18 18:59 06:59 Intake Total 1155.2 100 Output Total 600 Balance 555.2 100 - Medications Medications: Current Medications Acetaminophen (Tylenol 325mg Tab) 650 mg PO Q6 PRN PRN Reason: Pain, Mild (1-3) Last Admin: 04/30/18 11:51 Dose: 650 mg Apixaban (Eliquis) 10 mg PO Q12H [facility] Stop: 05/08/18 06:01 Last Admin: 05/01/18 17:45 Dose: 10 mg Famotidine (Pepcid) 20 mg PO DAILY [facility] Last Admin: 05/01/18 09:07 Dose: 20 mg Furosemide (Lasix) 20 mg PO BID [facility] Last Admin: 05/01/18 17:44 Dose: 20 mg Cefepime HCl (Maxipime Iv 1 Gm Premix) 1 gm in 50 mls @ 100 mls/hr IVPB STAT STA PRN Reason: Protocol Stop: 05/01/18 20:33 Last Admin: 05/01/18 20:18 Dose: 100 mls/hr Cefepime HCl 0.5 gm/ Sodium (Chloride) 50 mls @ 100 mls/hr IVPB Q24H [facility] Potassium Chloride (Klor-Con 10) 10 meq PO BRK [facility] Last Admin: 05/01/18 08:05 Dose: 10 meq Propranolol HCl (Inderal) 20 mg PO TID NAN - Labs Labs: 05/01/18 06:22 05/01/18 06:17 PT 16.0 SECONDS (9.7-12.2) H 04/28/18 16:55 INR 1.5 04/28/18 16:55 APTT 51 SECONDS (21-34) H D 05/01/18 06:22
--- NOTE | 2018-05-02 00:15 | CP.PCM.PN ---
Subjective - Date & Time of Evaluation Date of Evaluation: 04/30/18 Time of Evaluation: 12:00 - Subjective Subjective: Feeling better Objective - Vital Signs/Intake and Output Vital Signs (last 24 hours): Temp Pulse Resp BP Pulse Ox 98.5 F 86 29 H 115/64 98 05/01/18 16:09 05/01/18 20:02 05/01/18 20:02 05/01/18 20:02 05/01/18 20:02 Intake and Output: 05/01/18 05/02/18 18:59 06:59 Intake Total 1155.2 110.4 Output Total 600 200 Balance 555.2 -89.6 - Medications Medications: Current Medications Acetaminophen (Tylenol 325mg Tab) 650 mg PO Q6 PRN PRN Reason: Pain, Mild (1-3) Last Admin: 04/30/18 11:51 Dose: 650 mg Apixaban (Eliquis) 10 mg PO Q12H [facility] Stop: 05/08/18 06:01 Last Admin: 05/01/18 17:45 Dose: 10 mg Famotidine (Pepcid) 20 mg PO DAILY [facility] Last Admin: 05/01/18 09:07 Dose: 20 mg Furosemide (Lasix) 20 mg PO BID [facility] Last Admin: 05/01/18 17:44 Dose: 20 mg Cefepime HCl 0.5 gm/ Sodium (Chloride) 50 mls @ 100 mls/hr IVPB Q24H [facility] Potassium Chloride (Klor-Con 10) 10 meq PO BRK [facility] Last Admin: 05/01/18 08:05 Dose: 10 meq Propranolol HCl (Inderal) 20 mg PO TID [facility] Last Admin: 05/01/18 20:29 Dose: 20 mg - Labs Labs: 05/01/18 06:22 05/01/18 06:17 PT 16.0 SECONDS (9.7-12.2) H 04/28/18 16:55 INR 1.5 04/28/18 16:55 APTT 51 SECONDS (21-34) H D 05/01/18 06:22 - Head Exam Head Exam: ATRAUMATIC - Eye Exam Eye Exam: Normal appearance - ENT Exam ENT Exam: Mucous Membranes Dry - Respiratory Exam Respiratory Exam: NORMAL BREATHING PATTERN - Cardiovascular Exam Cardiovascular Exam: +S1, +S2 - GI/Abdominal Exam GI & Abdominal Exam: Normal Bowel Sounds Assessment and Plan (1) Leucocytosis Assessment & Plan: secondary to myelofibrosis on antibiotics Status: Acute (2) Thrombocytopenia Assessment & Plan: improving Status: Acute (3) Hepatosplenomegaly Assessment & Plan: secondary to myelofibrosis Status: Acute (4) Anemia Assessment & Plan: chronic disease myelofibrosis Status: Acute (5) Myelofibrosis Assessment & Plan: outpatient Jakafi and hydrea Status: Acute
--- NOTE | 2018-05-02 00:18 | CP.PCM.PN ---
Subjective - Date & Time of Evaluation Date of Evaluation: 05/01/18 Time of Evaluation: 20:00 - Subjective Subjective: Feeling better Objective - Vital Signs/Intake and Output Vital Signs (last 24 hours): Temp Pulse Resp BP Pulse Ox 98.5 F 86 29 H 115/64 98 05/01/18 16:09 05/01/18 20:02 05/01/18 20:02 05/01/18 20:02 05/01/18 20:02 Intake and Output: 05/01/18 05/02/18 18:59 06:59 Intake Total 1155.2 110.4 Output Total 600 200 Balance 555.2 -89.6 - Medications Medications: Current Medications Acetaminophen (Tylenol 325mg Tab) 650 mg PO Q6 PRN PRN Reason: Pain, Mild (1-3) Last Admin: 04/30/18 11:51 Dose: 650 mg Apixaban (Eliquis) 10 mg PO Q12H [facility] Stop: 05/08/18 06:01 Last Admin: 05/01/18 17:45 Dose: 10 mg Famotidine (Pepcid) 20 mg PO DAILY [facility] Last Admin: 05/01/18 09:07 Dose: 20 mg Furosemide (Lasix) 20 mg PO BID [facility] Last Admin: 05/01/18 17:44 Dose: 20 mg Cefepime HCl 0.5 gm/ Sodium (Chloride) 50 mls @ 100 mls/hr IVPB Q24H [facility] Potassium Chloride (Klor-Con 10) 10 meq PO BRK [facility] Last Admin: 05/01/18 08:05 Dose: 10 meq Propranolol HCl (Inderal) 20 mg PO TID [facility] Last Admin: 05/01/18 20:29 Dose: 20 mg - Labs Labs: 05/01/18 06:22 05/01/18 06:17 PT 16.0 SECONDS (9.7-12.2) H 04/28/18 16:55 INR 1.5 04/28/18 16:55 APTT 51 SECONDS (21-34) H D 05/01/18 06:22 - Head Exam Head Exam: ATRAUMATIC - Eye Exam Eye Exam: Normal appearance - ENT Exam ENT Exam: Mucous Membranes Dry - Respiratory Exam Respiratory Exam: NORMAL BREATHING PATTERN - Cardiovascular Exam Cardiovascular Exam: +S1, +S2 - GI/Abdominal Exam GI & Abdominal Exam: Normal Bowel Sounds Assessment and Plan (1) Leucocytosis Assessment & Plan: on antibiotics myelofibrosis Status: Acute (2) Thrombocytopenia Assessment & Plan: improving Status: Acute (3) Hepatosplenomegaly Assessment & Plan: secondary to myelofibrosis Status: Acute (4) 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
[2018-05-02 06:23] LABS: BASO # 0.9 K/uL (0.0-0.2); BASO % 1.4 % (0.0-2.0); EOS # 1.3 K/uL (0.0-0.7); EOS % 2.1 % (0.0-4.0); HEMOGLOBIN 9.8 g/dL (11.0-16.0); LYMPH # 2.8 K/uL (1.0-4.3); LYMPH % 4.6 % (20.0-40.0); MEAN CELL VOLUME 88.9 fL (81.0-99.0); MEAN CORPUSCULAR HEMOGLOBIN 28.6 pg (27.0-31.0); MEAN CORPUSCULAR HGB CONC 32.1 g/dL (33.0-37.0); MEAN PLATELET VOLUME 11.9 fL (7.2-11.7); MONO # 9.1 K/uL (0.0-0.8); MONO % 14.8 % (0.0-10.0); NEUT # 47.6 K/uL (1.8-7.0); NEUT % 77.1 % (50.0-75.0); NRBC % 0.6 % (0.0-2.0); PLATELET COUNT 93 K/uL (130-400); RBC 3.45 Mil/uL (3.80-5.20); RED CELL DISTRIBUTION WIDTH 18.9 % (11.5-14.5)
[2018-05-02 06:37] LABS: WHITE BLOOD COUNT 61.7 K/uL (4.8-10.8)
[2018-05-02 06:49] LABS: ALB/GLOB RATIO 1.1 (1.0-2.1); CALCIUM 8.4 mg/dl (8.6-10.4)
[2018-05-02] MEDS: Potassium Chloride 10 mEq ER Tab PO SCH (08:11)
--- NOTE | 2018-05-02 08:23 | CP.PCM.PN ---
Subjective - Date & Time of Evaluation Date of Evaluation: 05/02/18 Time of Evaluation: 08:00 - Subjective Subjective: f/u PV thrombosis, liver disease Feels better. Denies SZ< RB, melena, constip, diarrhea, HILL, hemoptysis Objective - Vital Signs/Intake and Output Vital Signs (last 24 hours): Temp Pulse Resp BP Pulse Ox 98.5 F 83 22 120/69 100 05/01/18 16:09 05/02/18 08:02 05/02/18 08:02 05/02/18 08:02 05/02/18 08:02 Intake and Output: 05/02/18 05/02/18 06:59 18:59 Intake Total 280.4 0 Output Total 200 Balance 80.4 0 - Medications Medications: Current Medications Acetaminophen (Tylenol 325mg Tab) 650 mg PO Q6 PRN PRN Reason: Pain, Mild (1-3) Last Admin: 04/30/18 11:51 Dose: 650 mg Apixaban (Eliquis) 10 mg PO Q12H [facility] Stop: 05/08/18 06:01 Last Admin: 05/02/18 06:41 Dose: 10 mg Famotidine (Pepcid) 20 mg PO DAILY [facility] Last Admin: 05/01/18 09:07 Dose: 20 mg Furosemide (Lasix) 20 mg PO BID [facility] Last Admin: 05/01/18 17:44 Dose: 20 mg Cefepime HCl 0.5 gm/ Sodium (Chloride) 50 mls @ 100 mls/hr IVPB Q24H [facility] Potassium Chloride (Klor-Con 10) 10 meq PO BRK [facility] Last Admin: 05/02/18 08:11 Dose: 10 meq Propranolol HCl (Inderal) 20 mg PO TID [facility] Last Admin: 05/01/18 20:29 Dose: 20 mg - Labs Labs: 05/02/18 06:12 05/02/18 06:12 PT 16.0 SECONDS (9.7-12.2) H 04/28/18 16:55 INR 1.5 04/28/18 16:55 APTT 51 SECONDS (21-34) H D 05/01/18 06:22 - Constitutional Appears: Non-toxic - Respiratory Exam Respiratory Exam: Clear to Ausculation Bilateral - Cardiovascular Exam Cardiovascular Exam: RRR - GI/Abdominal Exam GI & Abdominal Exam: Soft, Normal Bowel Sounds. 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
[2018-05-02 08:26] LABS: BANDS 16 % (0-2); EOSINOPHIL 1 % (0-4); LYMPHOCYTE 6 % (20-40); METAMYELOCYTE 2 % (0-0); MONOCYTE 13 % (0-10); MYELOCYTE 5 % (0-0); NEUTROPHIL 56 % (50-75); NUCLEATED RED BLOOD CELL 1 % (0-0); REACTIVE LYMPHOCYTES 1 % (0-0); TOTAL CELLS COUNTED 100
[2018-05-02 08:27] LABS: ANISOCYTOSIS SLIGHT; HYPOCHROMIC SLIGHT; PLATELET ESTIMATE DECREASED (NORMAL); POIKILOCYTOSIS SLIGHT
[2018-05-02 08:28] LABS: LARGE PLATELETS PRESENT; MICROCYTOSIS SLIGHT; POLYCHROMIC SLIGHT
--- NOTE | 2018-05-02 08:44 | CP.CCUPN ---
Addendum entered and electronically signed by Sydni Arellano 05/02/18 15:58: Patient may resume medications for myelofibrosis after treatment for sepsis is complete. Patient will need additional week of antibiotics for a total of 2 weeks antibiotic treatment. Original Note: <Sydni Arellano. - Last Filed: 05/02/18 13:54> CCU Subjective - Physician Review Subjective (Free Text): ICU Progress note Patient seen and examined at bedside. She currently denies chest pain, shortness of breath, headache, dizziness, abdominal pain, nausea, vomiting, flank pain, leg pain. She offers no complaints today. She denies dysuria, urinary urgency or frequency. 05/02/18 08:58 CCU Objective - Vital Signs / Intake & Output Vital Signs (Last 4 hours): Vital Signs Pulse Resp BP Pulse Ox 05/02/18 08:02 83 22 120/69 100 05/02/18 08:00 84 26 H 99 05/02/18 07:02 81 28 H 132/68 97 05/02/18 07:00 81 25 H 97 05/02/18 06:03 77 19 118/56 L 98 05/02/18 06:00 75 19 99 05/02/18 05:02 111/57 L Intake and Output (Last 8hrs): Intake & Output 05/01/18 05/02/18 05/02/18 22:59 06:59 14:59 Intake Total 592.0 0 0 Output Total 500 Balance 92.0 0 0 Intake: Intake, IV Amount 102.0 0 0 Right Forearm 52.0 0 Right PICC 50 0 0 Oral 490 Output: Urine 500 Urine, Voided 500 Other: # Voids Urine, Voided 1 1 # Bowel Movements 0 - Physical Exam Head: Positive for: Atraumatic, Normocephalic Extroacular Muscles: Positive for: EOMI Mouth: Positive for: Moist Mucous Membranes Respiratory/Chest: Positive for: Decreased Breath Sounds. Negative for: Respiratory Distress Cardiovascular: Positive for: Regular Rate and Rhythm, Normal S1, S2 Abdomen: Positive for: Other (Enlarged liver palpable). Negative for: Tenderness, Distention, Guarding Back: Negative for: CVA Tenderness Upper Extremity: Positive for: NORMAL PULSES, Capillary Refill < 2s. Negative for: Edema Lower Extremity: Positive for: Edema (minimal bilateral lower extremity edema ) , NORMAL PULSES. Negative for: CALF TENDERNESS Neurological: Positive for: GCS=15, CN II-XII Intact Skin: Positive for: Warm, Dry, Normal Color Psychiatric: Positive for: Alert, Oriented x 3 - Medications Active Medications: Active Medications Generic Name Dose Route Start Last Admin Trade Name Freq PRN Reason Stop Dose Admin Acetaminophen 650 mg 04/26/18 17:00 04/30/18 11:51 Tylenol 325mg Tab PO 650 mg Q6 PRN Administration Pain, Mild (1-3) Apixaban 10 mg 05/01/18 18:00 05/02/18 06:41 Eliquis PO 05/08/18 06:01 10 mg Q12H NAN Administration Famotidine 20 mg 04/27/18 10:00 05/01/18 09:07 Pepcid PO 20 mg DAILY NAN Administration Furosemide 20 mg 04/29/18 10:15 05/01/18 17:44 Lasix PO 20 mg BID NAN Administration Cefepime HCl 0.5 gm/ Sodium 50 mls @ 100 mls/hr 05/02/18 20:00 Chloride IVPB Q24H NAN Potassium Chloride 10 meq 04/28/18 18:15 05/02/18 08:11 Klor-Con 10 PO 10 meq BRK NAN Administration Propranolol HCl 20 mg 05/01/18 19:15 05/01/18 20:29 Inderal PO 20 mg TID NAN Administration - Patient Studies Lab Studies: Lab Studies 05/02/18 05/02/18 05/01/18 Range/Units 06:12 06:12 19:17 WBC 61.7 H* (4.8-10.8) K/uL RBC 3.45 L (3.80-5.20) Mil/uL Hgb 9.8 L (11.0-16.0) g/dL Hct 30.7 L (34.0-47.0) % MCV 88.9 (81.0-99.0) fL MCH 28.6 (27.0-31.0) pg MCHC 32.1 L (33.0-37.0) g/dL RDW 18.9 H (11.5-14.5) % Plt Count 93 L (130-400) K/uL MPV 11.9 H (7.2-11.7) fL Neut % (Auto) 77.1 H (50.0-75.0) % Lymph % (Auto) 4.6 L (20.0-40.0) % Braxton % (Auto) 14.8 H (0.0-10.0) % Eos % (Auto) 2.1 (0.0-4.0) % Baso % (Auto) 1.4 (0.0-2.0) % Neut # (Auto) 47.6 H (1.8-7.0) K/uL Lymph # (Auto) 2.8 (1.0-4.3) K/uL Braxton # (Auto) 9.1 H (0.0-0.8) K/uL Eos # (Auto) 1.3 H (0.0-0.7) K/uL Baso # (Auto) 0.9 H (0.0-0.2) K/uL Neutrophils % (Manual) 56 (50-75) % Band Neutrophils % 16 H* (0-2) % Lymphocytes % (Manual) 6 L (20-40) % Reactive Lymphs % 1 H (0-0) % Monocytes % (Manual) 13 H (0-10) % Eosinophils % (Manual) 1 (0-4) % Metamyelocytes % 2 H (0-0) % Myelocytes % 5 H (0-0) % Plasma Cell % (Manual) (0-0) Nucleated RBC % 1 H (0-0) % Toxic Granulation Platelet Estimate Decreased L (NORMAL) Large Platelets Present Polychromasia Slight Hypochromasia (manual) Slight Poikilocytosis (manual Slight Anisocytosis (manual) Slight Microcytosis (manual) Slight Ovalocytes Sodium 138 (132-148) mmol/L Potassium 3.7 (3.6-5.2) mmol/L Chloride 105 (98-107) mmol/L Carbon Dioxide 26 (22-30) mmol/L Anion Gap 11 (10-20) BUN 40 H (7-17) mg/dL Creatinine 2.2 H (0.7-1.2) mg/dL Est GFR ( Amer) 27 Est GFR (Non-Af Amer) 22 Random Glucose 95 (65-105) mg/dL Calcium 8.4 L (8.6-10.4) mg/dl Phosphorus 2.0 L (2.5-4.5) mg/dL Magnesium 1.8 (1.6-2.3) mg/dL Total Bilirubin 1.4 H (0.2-1.3) mg/dL AST 17 (14-36) U/L ALT 29 (9-52) U/L Alkaline Phosphatase 58 (38-126) U/L Troponin I (0.00-0.120) ng/mL Total Protein 5.7 L (6.3-8.3) g/dL Albumin 3.0 L (3.5-5.0) g/dL Globulin 2.8 (2.2-3.9) gm/dL Albumin/Globulin Ratio 1.1 (1.0-2.1) Urine Color Yellow (YELLOW) Urine Clarity Hazy (Clear) Urine pH 5.0 (5.0-8.0) Ur Specific Reeder 1.012 (1.003-1.030) Urine Protein 2+ H (NEGATIVE) mg/dL Urine Glucose (UA) 1+ (Normal) mg/dL Urine Ketones Trace (NEGATIVE) mg/dL Urine Blood 1+ H (NEGATIVE) Urine Nitrate Negative (NEGATIVE) Urine Bilirubin Negative (NEGATIVE) Urine Urobilinogen 4.0 H (0.2-1.0) mg/dL Ur Leukocyte Esterase 3+ H (Negative) Leo/uL Urine WBC (Auto) 41 H (0-5) /hpf Urine RBC (Auto) 13 H (0-3) /hpf Ur Squamous Epith Cells 3 (0-5) /hpf Urine Bacteria Rare (<OCC) Hyaline Casts 3-5 H (0-2) /lpf 05/01/18 05/01/18 Range/Units 16:55 06:22 WBC (4.8-10.8) K/uL RBC (3.80-5.20) Mil/uL Hgb (11.0-16.0) g/dL Hct (34.0-47.0) % MCV (81.0-99.0) fL MCH (27.0-31.0) pg MCHC (33.0-37.0) g/dL RDW (11.5-14.5) % Plt Count (130-400) K/uL MPV (7.2-11.7) fL Neut % (Auto) (50.0-75.0) % Lymph % (Auto) (20.0-40.0) % Braxton % (Auto) (0.0-10.0) % Eos % (Auto) (0.0-4.0) % Baso % (Auto) (0.0-2.0) % Neut # (Auto) (1.8-7.0) K/uL Lymph # (Auto) (1.0-4.3) K/uL Braxton # (Auto) (0.0-0.8) K/uL Eos # (Auto) (0.0-0.7) K/uL Baso # (Auto) (0.0-0.2) K/uL Neutrophils % (Manual) 59 (50-75) % Band Neutrophils % 12 H* (0-2) % Lymphocytes % (Manual) 2 L (20-40) % Reactive Lymphs % 1 H (0-0) % Monocytes % (Manual) 8 (0-10) % Eosinophils % (Manual) 1 (0-4) % Metamyelocytes % 5 H (0-0) % Myelocytes % 11 H (0-0) % Plasma Cell % (Manual) 1 H (0-0) Nucleated RBC % 1 H (0-0) % Toxic Granulation Present Platelet Estimate Slightly decreased L (NORMAL) Large Platelets Present Polychromasia Hypochromasia (manual) Slight Poikilocytosis (manual Anisocytosis (manual) Moderate Microcytosis (manual) Ovalocytes Slight Sodium (132-148) mmol/L Potassium (3.6-5.2) mmol/L Chloride (98-107) mmol/L Carbon Dioxide (22-30) mmol/L Anion Gap (10-20) BUN (7-17) mg/dL Creatinine (0.7-1.2) mg/dL Est GFR ( Amer) Est GFR (Non-Af Amer) Random Glucose (65-105) mg/dL Calcium (8.6-10.4) mg/dl Phosphorus (2.5-4.5) mg/dL Magnesium (1.6-2.3) mg/dL Total Bilirubin (0.2-1.3) mg/dL AST (14-36) U/L ALT (9-52) U/L Alkaline Phosphatase (38-126) U/L Troponin I < 0.0120 (0.00-0.120) ng/mL Total Protein (6.3-8.3) g/dL Albumin (3.5-5.0) g/dL Globulin (2.2-3.9) gm/dL Albumin/Globulin Ratio (1.0-2.1) Urine Color (YELLOW) Urine Clarity (Clear) Urine pH (5.0-8.0) Ur Specific Reeder (1.003-1.030) Urine Protein (NEGATIVE) mg/dL Urine Glucose (UA) (Normal) mg/dL Urine Ketones (NEGATIVE) mg/dL Urine Blood (NEGATIVE) Urine Nitrate (NEGATIVE) Urine Bilirubin (NEGATIVE) Urine Urobilinogen (0.2-1.0) mg/dL Ur Leukocyte Esterase (Negative) Leo/uL Urine WBC (Auto) (0-5) /hpf Urine RBC (Auto) (0-3) /hpf Ur Squamous Epith Cells (0-5) /hpf Urine Bacteria (<OCC) Hyaline Casts (0-2) /lpf Laboratory Results - last 24 hr 05/01/18 05/01/18 05/01/18 06:22 16:55 19:17 WBC RBC Hgb Hct MCV MCH MCHC RDW Plt Count MPV Neut % (Auto) Lymph % (Auto) Braxton % (Auto) Eos % (Auto) Baso % (Auto) Neut # (Auto) Lymph # (Auto) Braxton # (Auto) Eos # (Auto) Baso # (Auto) Neutrophils % (Manual) 59 Band Neutrophils % 12 H* Lymphocytes % (Manual) 2 L Reactive Lymphs % 1 H Monocytes % (Manual) 8 Eosinophils % (Manual) 1 Metamyelocytes % 5 H Myelocytes % 11 H Plasma Cell % (Manual) 1 H Nucleated RBC % 1 H Toxic Granulation Present Platelet Estimate Slightly decreased L Large Platelets Present Polychromasia Hypochromasia (manual) Slight Poikilocytosis (manual Anisocytosis (manual) Moderate Microcytosis (manual) Ovalocytes Slight Sodium Potassium Chloride Carbon Dioxide Anion Gap BUN Creatinine Est GFR ( Amer) Est GFR (Non-Af Amer) Random Glucose Calcium Phosphorus Magnesium Total Bilirubin AST ALT Alkaline Phosphatase Troponin I < 0.0120 Total Protein Albumin Globulin Albumin/Globulin Ratio Urine Color Yellow Urine Clarity Hazy Urine pH 5.0 Ur Specific Reeder 1.012 Urine Protein 2+ H Urine Glucose (UA) 1+ Urine Ketones Trace Urine Blood 1+ H Urine Nitrate Negative Urine Bilirubin Negative Urine Urobilinogen 4.0 H Ur Leukocyte Esterase 3+ H Urine WBC (Auto) 41 H Urine RBC (Auto) 13 H Ur Squamous Epith Cells 3 Urine Bacteria Rare Hyaline Casts 3-5 H 05/02/18 05/02/18 06:12 06:12 WBC 61.7 H* RBC 3.45 L Hgb 9.8 L Hct 30.7 L MCV 88.9 MCH 28.6 MCHC 32.1 L RDW 18.9 H Plt Count 93 L MPV 11.9 H Neut % (Auto) 77.1 H Lymph % (Auto) 4.6 L Braxton % (Auto) 14.8 H Eos % (Auto) 2.1 Baso % (Auto) 1.4 Neut # (Auto) 47.6 H Lymph # (Auto) 2.8 Braxton # (Auto) 9.1 H Eos # (Auto) 1.3 H Baso # (Auto) 0.9 H Neutrophils % (Manual) 56 Band Neutrophils % 16 H* Lymphocytes % (Manual) 6 L Reactive Lymphs % 1 H Monocytes % (Manual) 13 H Eosinophils % (Manual) 1 Metamyelocytes % 2 H Myelocytes % 5 H Plasma Cell % (Manual) Nucleated RBC % 1 H Toxic Granulation Platelet Estimate Decreased L Large Platelets Present Polychromasia Slight Hypochromasia (manual) Slight Poikilocytosis (manual Slight Anisocytosis (manual) Slight Microcytosis (manual) Slight Ovalocytes Sodium 138 Potassium 3.7 Chloride 105 Carbon Dioxide 26 Anion Gap 11 BUN 40 H Creatinine 2.2 H Est GFR ( Amer) 27 Est GFR (Non-Af Amer) 22 Random Glucose 95 Calcium 8.4 L Phosphorus 2.0 L Magnesium 1.8 Total Bilirubin 1.4 H AST 17 ALT 29 Alkaline Phosphatase 58 Troponin I Total Protein 5.7 L Albumin 3.0 L Globulin 2.8 Albumin/Globulin Ratio 1.1 Urine Color Urine Clarity Urine pH Ur Specific Reeder Urine Protein Urine Glucose (UA) Urine Ketones Urine Blood Urine Nitrate Urine Bilirubin Urine Urobilinogen Ur Leukocyte Esterase Urine WBC (Auto) Urine RBC (Auto) Ur Squamous Epith Cells Urine Bacteria Hyaline Casts Review of Systems - Constitutional Constitutional: absent: Fever, Chills - Cardiovascular Cardiovascular: absent: Chest Pain, Dyspnea - Respiratory Respiratory: absent: Cough, Dyspnea - Gastrointestinal Gastrointestinal: absent: Abdominal Pain, Nausea, Vomiting - Genitourinary Genitourinary: absent: Dysuria, Urinary Incontinence - Musculoskeletal Musculoskeletal: absent: Back Pain - Neurological Neurological: absent: Confusion Critical Care Progress Note - Nutrition Nutrition: Nutrition Category Date Time Status Heart Healthy Diet [DIET] Diets 04/30/18 Breakfast Active Assessment/Plan - Assessment and Plan (Free Text) Assessment: 67 year old female with history of arthritis, HTN, myelofibrosis with chronic leukocytosis who was admitted for right flank pain following failed outpatient treatment of pyelonephritis. CT revealed right hydroureteronephrosis with ureteral stricture, and she is s/p ureteral stent insertion by Dr. Irvin on 04/25/18. Patient developed Atrial fibrillation, currently on PO Cardizem. RLE DVT, on Eliquis. Plan: Neuro: Alert and oriented x3 Cardiovascular: Currently in Sinus rhythm Cardiology Dr. Alex consulted, help appreciated Eliquis 2.5mg BID ECHO: Left ventricle systolic function is normal. EF 65-70%. Transmitral doppler flow pattern is Grade I-abnormal relaxation pattern. Trace aortic regurgitation. Moderate pulmonary HTN. Dopplers: Acute thrombosis of right gastrocnemius vein with severe reduction of venous return. VQ scan Low probability for pulmonary embolism. Right PICC line in place proBNP [id number] Troponins <0.0120 Pulmonary: 96% on NC CXR: Improving CHF Lasix 20mg PO BID ordered. GI: Hepatosplenomegaly with portal HTN and portosystemic varices CT abdomen: 1. Right perinephric reaction is appreciated with mild to moderate right hydroureteronephrosis potentially on the basis of distal right ureteral stricture, lucent calculus or expelled calculus. No radiodense urolithiasis identified bilaterally including urinary bladder. Left kidney appears unremarkable. 2. Prominent carrie hepatis with extensive upper abdominal varices and splenomegaly suspicious for pattern blood flow. No gross pattern of hepatic cirrhosis. Cryptogenic cirrhosis is a possibility. Clinically correlate further. 3. Large calculus within the gallbladder with the gallbladder otherwise unremarkable appearing. CT abdomen 1. 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 Persistent mild right hydronephrosis and mild diffuse dilatation of the right ureteral with surrounding inflammatory changes without evidence for obstructing stones. Pyelonephritis/distal ureteral stricture is a consideration. Apparent mild mural thickening of the urinary bladder wall could also be related to cystitis. Please correlate with urine analysis. 3. No other significant interval change. Abdomen US: Normal splenic vein not well delineated on this study. Prominent varices noted surrounding the splenic vein. Clinical correlation. Dilated portal vein with increased velocity noted in the portal vein. Portal vein flow appears turbulent. Prominent varices are noted at the level of the carrie hepatis. Clinical correlation. Enlarged liver measuring 24.7 centimeters. Nodular and cirrhotic contour. Increased echogenicity of the hepatic parenchymal cortex suggestive for hepatic parenchymal disease versus fatty infiltration. Clinical correlation. Cholelithiasis. Gallbladder wall thickness measures 2.6 millimeters. Negative sonographic Hidalgo's sign. Spleen is markedly enlarged measuring up to 20 centimeters length. Increased echogenicity of the bilateral renal parenchymal cortices suggestive for medical renal disease. Small right pleural effusion. Abdomen US limited: Turbulent flow within the splenic vein without evidence of gross thrombus. Clinical correlation. Turbulent flow within the portal vein without gross thrombus. Patent flow in the hepatic veins. Right pleural effusion noted.Pancreas not well visualized. Pepcid 20mg PO daily Propranolol 20mg PO TID Dr. Méndez consulted, help appreciated antismooth muscle negative TRACEY 6 profile negative Hep panel negative CT chest/abdomen/pelvis: Cardiomegaly. Small pericardial effusion. Mild edema/ infection. Small bilateral pleural effusions. Bibasilar compressive consolidations.Hepatomegaly with enlargement of the right hepatic and caudate lobe. The left hepatic lobe is comparatively small in size. Splenomegaly. Ill- defined indeterminate 1.5 x 2.0 cm low-density lesion in the posterior aspect of the spleen. Solitary large calcified gallstone. Right sided ureteral stent. Mild right-sided hydronephrosis. Diminutive right kidney. Extensive perisplenic , splenorenal, short gastric common esophageal varices. Enlarged portal vein inadequately assessed due to lack of IV contrast. Sub cm mesenteric and retroperitoneal lymph nodes, nonspecific. Diverticulosis without CT evidence of acute diverticulitis. Mild wall thickening of the left colon; correlate clinically for possibility of colitis. Additional findings as above Renal s/p right ureteral stent with Dr. Irvin on 04/25/[address] Irvin consulted, help appreciated Strict I&Os BUN/Cr 40/2.2 Endo: maintain euglycemia Heme/Onc: Hx of myelofibrosis with chronic leukocytosis Dr. Mcbride consulted, help appreciated White count 61.7 H/H 9.8/30.7 Platelets 93 ID White count elevated at 61.7 Procalcitonin 0.75 UA 1+ leuk esterase positive for nitrates , repeat UA 3+ LE, neg for nitrates Cefepime 0.5mg IV Dr. Jackson consulted, help appreciated Initial Blood Cultures negative, repeat blood cultures negative Urine culture multiple species Repeat cultures pending Nares MRSA not detected PPX: SCDs, Pepcid Case discussed with Dr. Fragoso <Terrance Fragoso - Last Filed: 05/02/18 16:58> CCU Objective - Vital Signs / Intake & Output Vital Signs (Last 4 hours): Vital Signs Pulse Resp BP Pulse Ox 05/02/18 16:02 81 24 114/52 L 95 05/02/18 16:00 78 25 H 94 L 05/02/18 15:02 82 21 128/67 96 05/02/18 15:00 82 30 H 97 05/02/18 14:02 83 33 H 115/62 94 L 05/02/18 14:00 83 20 97 05/02/18 13:31 83 26 H 116/65 95 05/02/18 13:26 83 21 86/55 L 94 L 05/02/18 13:00 82 16 93 L Intake and Output (Last 8hrs): Intake & Output 05/02/18 05/02/18 05/02/18 06:59 14:59 22:59 Intake Total 0 0 Balance 0 0 Intake: Intake, IV Amount 0 0 Right Forearm 0 Right PICC 0 0 Other: # Voids Urine, Voided 1 - Medications Active Medications: Active Medications Generic Name Dose Route Start Last Admin Trade Name Freq PRN Reason Stop Dose Admin Acetaminophen 650 mg 04/26/18 17:00 04/30/18 11:51 Tylenol 325mg Tab PO 650 mg Q6 PRN Administration Pain, Mild (1-3) Apixaban 2.5 mg 05/02/18 10:00 05/02/18 11:00 Eliquis PO 2.5 mg Q12 NAN Administration Famotidine 20 mg 04/27/18 10:00 05/02/18 09:04 Pepcid PO 20 mg DAILY NAN Administration Furosemide 20 mg 04/29/18 10:15 05/02/18 09:05 Lasix PO 20 mg BID NAN Administration Cefepime HCl 0.5 gm/ Sodium 50 mls @ 100 mls/hr 05/02/18 20:00 Chloride IVPB Q24H [facility] Potassium Chloride 10 meq 04/28/18 18:15 05/02/18 08:11 Klor-Con 10 PO 10 meq BRK NAN Administration Propranolol HCl 20 mg 05/01/18 19:15 05/02/18 13:37 Inderal PO 20 mg TID NAN Administration - Patient Studies Lab Studies: Lab Studies 05/02/18 05/02/18 05/02/18 Range/Units 06:12 06:12 06:12 WBC 61.7 H* (4.8-10.8) K/uL RBC 3.45 L (3.80-5.20) Mil/uL Hgb 9.8 L (11.0-16.0) g/dL Hct 30.7 L (34.0-47.0) % MCV 88.9 (81.0-99.0) fL MCH 28.6 (27.0-31.0) pg MCHC 32.1 L (33.0-37.0) g/dL RDW 18.9 H (11.5-14.5) % Plt Count 93 L (130-400) K/uL MPV 11.9 H (7.2-11.7) fL Neut % (Auto) 77.1 H (50.0-75.0) % Lymph % (Auto) 4.6 L (20.0-40.0) % Braxton % (Auto) 14.8 H (0.0-10.0) % Eos % (Auto) 2.1 (0.0-4.0) % Baso % (Auto) 1.4 (0.0-2.0) % Neut # (Auto) 47.6 H (1.8-7.0) K/uL Lymph # (Auto) 2.8 (1.0-4.3) K/uL Braxton # (Auto) 9.1 H (0.0-0.8) K/uL Eos # (Auto) 1.3 H (0.0-0.7) K/uL Baso # (Auto) 0.9 H (0.0-0.2) K/uL Neutrophils % (Manual) 56 (50-75) % Band Neutrophils % 16 H* (0-2) % Lymphocytes % (Manual) 6 L (20-40) % Reactive Lymphs % 1 H (0-0) % Monocytes % (Manual) 13 H (0-10) % Eosinophils % (Manual) 1 (0-4) % Metamyelocytes % 2 H (0-0) % Myelocytes % 5 H (0-0) % Nucleated RBC % 1 H (0-0) % Platelet Estimate Decreased L (NORMAL) Large Platelets Present Polychromasia Slight Hypochromasia (manual) Slight Poikilocytosis (manual Slight Anisocytosis (manual) Slight Microcytosis (manual) Slight LAP Score 163 (20-180) Sodium 138 (132-148) mmol/L Potassium 3.7 (3.6-5.2) mmol/L Chloride 105 (98-107) mmol/L Carbon Dioxide 26 (22-30) mmol/L Anion Gap 11 (10-20) BUN 40 H (7-17) mg/dL Creatinine 2.2 H (0.7-1.2) mg/dL Est GFR ( Amer) 27 Est GFR (Non-Af Amer) 22 Random Glucose 95 (65-105) mg/dL Calcium 8.4 L (8.6-10.4) mg/dl Phosphorus 2.0 L (2.5-4.5) mg/dL Magnesium 1.8 (1.6-2.3) mg/dL Total Bilirubin 1.4 H (0.2-1.3) mg/dL AST 17 (14-36) U/L ALT 29 (9-52) U/L Alkaline Phosphatase 58 (38-126) U/L Troponin I (0.00-0.120) ng/mL Total Protein 5.7 L (6.3-8.3) g/dL Albumin 3.0 L (3.5-5.0) g/dL Globulin 2.8 (2.2-3.9) gm/dL Albumin/Globulin Ratio 1.1 (1.0-2.1) Procalcitonin 1.26 H (0.19-0.49) NG/ML Urine Color (YELLOW) Urine Clarity (Clear) Urine pH (5.0-8.0) Ur Specific Reeder (1.003-1.030) Urine Protein (NEGATIVE) mg/dL Urine Glucose (UA) (Normal) mg/dL Urine Ketones (NEGATIVE) mg/dL Urine Blood (NEGATIVE) Urine Nitrate (NEGATIVE) Urine Bilirubin (NEGATIVE) Urine Urobilinogen (0.2-1.0) mg/dL Ur Leukocyte Esterase (Negative) Leo/uL Urine WBC (Auto) (0-5) /hpf Urine RBC (Auto) (0-3) /hpf Ur Squamous Epith Cells (0-5) /hpf Urine Bacteria (<OCC) Hyaline Casts (0-2) /lpf 05/01/18 05/01/18 Range/Units 19:17 16:55 WBC (4.8-10.8) K/uL RBC (3.80-5.20) Mil/uL Hgb (11.0-16.0) g/dL Hct (34.0-47.0) % MCV (81.0-99.0) fL MCH (27.0-31.0) pg MCHC (33.0-37.0) g/dL RDW (11.5-14.5) % Plt Count (130-400) K/uL MPV (7.2-11.7) fL Neut % (Auto) (50.0-75.0) % Lymph % (Auto) (20.0-40.0) % Braxton % (Auto) (0.0-10.0) % Eos % (Auto) (0.0-4.0) % Baso % (Auto) (0.0-2.0) % Neut # (Auto) (1.8-7.0) K/uL Lymph # (Auto) (1.0-4.3) K/uL Braxton # (Auto) (0.0-0.8) K/uL Eos # (Auto) (0.0-0.7) K/uL Baso # (Auto) (0.0-0.2) K/uL Neutrophils % (Manual) (50-75) % Band Neutrophils % (0-2) % Lymphocytes % (Manual) (20-40) % Reactive Lymphs % (0-0) % Monocytes % (Manual) (0-10) % Eosinophils % (Manual) (0-4) % Metamyelocytes % (0-0) % Myelocytes % (0-0) % Nucleated RBC % (0-0) % Platelet Estimate (NORMAL) Large Platelets Polychromasia Hypochromasia (manual) Poikilocytosis (manual Anisocytosis (manual) Microcytosis (manual) LAP Score (20-180) Sodium (132-148) mmol/L Potassium (3.6-5.2) mmol/L Chloride (98-107) mmol/L Carbon Dioxide (22-30) mmol/L Anion Gap (10-20) BUN (7-17) mg/dL Creatinine (0.7-1.2) mg/dL Est GFR ( Amer) Est GFR (Non-Af Amer) Random Glucose (65-105) mg/dL Calcium (8.6-10.4) mg/dl Phosphorus (2.5-4.5) mg/dL Magnesium (1.6-2.3) mg/dL Total Bilirubin (0.2-1.3) mg/dL AST (14-36) U/L ALT (9-52) U/L Alkaline Phosphatase (38-126) U/L Troponin I < 0.0120 (0.00-0.120) ng/mL Total Protein (6.3-8.3) g/dL Albumin (3.5-5.0) g/dL Globulin (2.2-3.9) gm/dL Albumin/Globulin Ratio (1.0-2.1) Procalcitonin (0.19-0.49) NG/ML Urine Color Yellow (YELLOW) Urine Clarity Hazy (Clear) Urine pH 5.0 (5.0-8.0) Ur Specific Reeder 1.012 (1.003-1.030) Urine Protein 2+ H (NEGATIVE) mg/dL Urine Glucose (UA) 1+ (Normal) mg/dL Urine Ketones Trace (NEGATIVE) mg/dL Urine Blood 1+ H (NEGATIVE) Urine Nitrate Negative (NEGATIVE) Urine Bilirubin Negative (NEGATIVE) Urine Urobilinogen 4.0 H (0.2-1.0) mg/dL Ur Leukocyte Esterase 3+ H (Negative) Leo/uL Urine WBC (Auto) 41 H (0-5) /hpf Urine RBC (Auto) 13 H (0-3) /hpf Ur Squamous Epith Cells 3 (0-5) /hpf Urine Bacteria Rare (<OCC) Hyaline Casts 3-5 H (0-2) /lpf Laboratory Results - last 24 hr 05/01/18 05/01/18 05/02/18 16:55 19:17 06:12 WBC 61.7 H* RBC 3.45 L Hgb 9.8 L Hct 30.7 L MCV 88.9 MCH 28.6 MCHC 32.1 L RDW 18.9 H Plt Count 93 L MPV 11.9 H Neut % (Auto) 77.1 H Lymph % (Auto) 4.6 L Braxton % (Auto) 14.8 H Eos % (Auto) 2.1 Baso % (Auto) 1.4 Neut # (Auto) 47.6 H Lymph # (Auto) 2.8 Braxton # (Auto) 9.1 H Eos # (Auto) 1.3 H Baso # (Auto) 0.9 H Neutrophils % (Manual) 56 Band Neutrophils % 16 H* Lymphocytes % (Manual) 6 L Reactive Lymphs % 1 H Monocytes % (Manual) 13 H Eosinophils % (Manual) 1 Metamyelocytes % 2 H Myelocytes % 5 H Nucleated RBC % 1 H Platelet Estimate Decreased L Large Platelets Present Polychromasia Slight Hypochromasia (manual) Slight Poikilocytosis (manual Slight Anisocytosis (manual) Slight Microcytosis (manual) Slight LAP Score 163 Sodium Potassium Chloride Carbon Dioxide Anion Gap BUN Creatinine Est GFR ( Amer) Est GFR (Non-Af Amer) Random Glucose Calcium Phosphorus Magnesium Total Bilirubin AST ALT Alkaline Phosphatase Troponin I < 0.0120 Total Protein Albumin Globulin Albumin/Globulin Ratio Procalcitonin Urine Color Yellow Urine Clarity Hazy Urine pH 5.0 Ur Specific Reeder 1.012 Urine Protein 2+ H Urine Glucose (UA) 1+ Urine Ketones Trace Urine Blood 1+ H Urine Nitrate Negative Urine Bilirubin Negative Urine Urobilinogen 4.0 H Ur Leukocyte Esterase 3+ H Urine WBC (Auto) 41 H Urine RBC (Auto) 13 H Ur Squamous Epith Cells 3 Urine Bacteria Rare Hyaline Casts 3-5 H 05/02/18 05/02/18 06:12 06:12 WBC RBC Hgb Hct MCV MCH MCHC RDW Plt Count MPV Neut % (Auto) Lymph % (Auto) Braxton % (Auto) Eos % (Auto) Baso % (Auto) Neut # (Auto) Lymph # (Auto) Braxton # (Auto) Eos # (Auto) Baso # (Auto) Neutrophils % (Manual) Band Neutrophils % Lymphocytes % (Manual) Reactive Lymphs % Monocytes % (Manual) Eosinophils % (Manual) Metamyelocytes % Myelocytes % Nucleated RBC % Platelet Estimate Large Platelets Polychromasia Hypochromasia (manual) Poikilocytosis (manual Anisocytosis (manual) Microcytosis (manual) LAP Score Sodium 138 Potassium 3.7 Chloride 105 Carbon Dioxide 26 Anion Gap 11 BUN 40 H Creatinine 2.2 H Est GFR ( Amer) 27 Est GFR (Non-Af Amer) 22 Random Glucose 95 Calcium 8.4 L Phosphorus 2.0 L Magnesium 1.8 Total Bilirubin 1.4 H AST 17 ALT 29 Alkaline Phosphatase 58 Troponin I Total Protein 5.7 L Albumin 3.0 L Globulin 2.8 Albumin/Globulin Ratio 1.1 Procalcitonin 1.26 H Urine Color Urine Clarity Urine pH Ur Specific Reeder Urine Protein Urine Glucose (UA) Urine Ketones Urine Blood Urine Nitrate Urine Bilirubin Urine Urobilinogen Ur Leukocyte Esterase Urine WBC (Auto) Urine RBC (Auto) Ur Squamous Epith Cells Urine Bacteria Hyaline Casts Critical Care Progress Note - Nutrition Nutrition: Nutrition Category Date Time Status Heart Healthy Diet [DIET] Diets 04/30/18 Breakfast Active Attending/Attestation - Attestation I have personally seen and examined this patient.: Yes I have fully participated in the care of the patient.: Yes I have reviewed all pertinent clinical information: Yes Notes (Text): 05/02/18 16:14 I have seen and examined the patient. Medical records, lab studies, and imaging were reviewed by me and a management plan was formulated on multidisciplinary rounds with resident Dr. Arellano. I agree with their documented assessment and plan. Patient is doing better clinically. Treatment for pyelonephritis for two weeks , approximately 1 week left. WBC climbing, but within range for this patient with known myelofibrosis c/b recent sepsis. Stable for downgrade to the floors. Critical Care Time 35 minutes. Multi-disciplinary rounds were performed with house staff, nursing, speech therapy, respiratory therapy, pharmacy and nutrition with integrated input from the primary team/attending and other consulting services. The documented time is cumulative and includes review of patient data/exams/labs/chart review and examination of the patient on rounds and throughout the day; time is exclusive of any procedures or teaching time.
--- NOTE | 2018-05-02 09:44 | CP.PCM.PN ---
Subjective - Date & Time of Evaluation Date of Evaluation: 05/02/18 Time of Evaluation: 09:44 - Subjective Subjective: Patient is sitting up comfortably now. Had saturation is 94% in room air. No abdominal pain. Leg swelling is negative. The heparin drip is off, currently patient started on Eliquis On examination: Patient is not in any distress. Could chest bilateral air entry Regular heart sound No pedal edema Labs reviewed increasing WBC noted. We will discuss with the oncologist about that, and possibly resume her medication after discussion with him. Meanwhile awaiting for culture report. Infection specialist opinion pending If cultures are negative patient possibly can be discharged with her medications. Will discuss with current team Objective - Vital Signs/Intake and Output Vital Signs (last 24 hours): Temp Pulse Resp BP Pulse Ox 98.5 F 83 22 116/69 100 05/01/18 16:09 05/02/18 08:02 05/02/18 08:02 05/02/18 09:05 05/02/18 08:02 Intake and Output: 05/02/18 05/02/18 06:59 18:59 Intake Total 280.4 0 Output Total 200 Balance 80.4 0 - Medications Medications: Current Medications Acetaminophen (Tylenol 325mg Tab) 650 mg PO Q6 PRN PRN Reason: Pain, Mild (1-3) Last Admin: 04/30/18 11:51 Dose: 650 mg Apixaban (Eliquis) 2.5 mg PO Q12 [facility] Famotidine (Pepcid) 20 mg PO DAILY [facility] Last Admin: 05/02/18 09:04 Dose: 20 mg Furosemide (Lasix) 20 mg PO BID [facility] Last Admin: 05/02/18 09:05 Dose: 20 mg Cefepime HCl 0.5 gm/ Sodium (Chloride) 50 mls @ 100 mls/hr IVPB Q24H [facility] Potassium Chloride (Klor-Con 10) 10 meq PO BRK [facility] Last Admin: 05/02/18 08:11 Dose: 10 meq Propranolol HCl (Inderal) 20 mg PO TID [facility] Last Admin: 05/01/18 20:29 Dose: 20 mg - Labs Labs: 05/02/18 06:12 05/02/18 06:12 PT 16.0 SECONDS (9.7-12.2) H 04/28/18 16:55 INR 1.5 04/28/18 16:55 APTT 51 SECONDS (21-34) H D 05/01/18 06:22
--- NOTE | 2018-05-02 15:53 | CP.PCM.PN ---
Subjective - Date & Time of Evaluation Date of Evaluation: 05/02/18 Time of Evaluation: 13:15 - Subjective Subjective: clinically same Objective - Vital Signs/Intake and Output Vital Signs (last 24 hours): Temp Pulse Resp BP Pulse Ox 98.5 F 83 22 116/69 100 05/01/18 16:09 05/02/18 08:02 05/02/18 08:02 05/02/18 09:05 05/02/18 08:02 Intake and Output: 05/02/18 05/02/18 06:59 18:59 Intake Total 280.4 0 Output Total 200 Balance 80.4 0 - Medications Medications: Current Medications Acetaminophen (Tylenol 325mg Tab) 650 mg PO Q6 PRN PRN Reason: Pain, Mild (1-3) Last Admin: 04/30/18 11:51 Dose: 650 mg Apixaban (Eliquis) 2.5 mg PO Q12 [facility] Last Admin: 05/02/18 11:00 Dose: 2.5 mg Famotidine (Pepcid) 20 mg PO DAILY [facility] Last Admin: 05/02/18 09:04 Dose: 20 mg Furosemide (Lasix) 20 mg PO BID [facility] Last Admin: 05/02/18 09:05 Dose: 20 mg Cefepime HCl 0.5 gm/ Sodium (Chloride) 50 mls @ 100 mls/hr IVPB Q24H [facility] Potassium Chloride (Klor-Con 10) 10 meq PO BRK [facility] Last Admin: 05/02/18 08:11 Dose: 10 meq Propranolol HCl (Inderal) 20 mg PO TID [facility] Last Admin: 05/02/18 13:37 Dose: 20 mg - Labs Labs: 05/02/18 06:12 05/02/18 06:12 PT 16.0 SECONDS (9.7-12.2) H 04/28/18 16:55 INR 1.5 04/28/18 16:55 APTT 51 SECONDS (21-34) H D 05/01/18 06:22
--- NOTE | 2018-05-02 17:08 | PCM.URO ---
Urology Progress Note - General General: No Complaints, Tolerating Diet - Subjective Flank Pain: No Nausea: No Voiding Well: Yes Dysuria: No Hematuria: No Dsypnea: No Chest Pain: No Fever & Chills: No - Objective Lab Studies: Reviewed Lab Results Last 24 Hours: Laboratory Results - last 24 hr 05/01/18 05/01/18 05/02/18 16:55 19:17 06:12 WBC 61.7 H* RBC 3.45 L Hgb 9.8 L Hct 30.7 L MCV 88.9 MCH 28.6 MCHC 32.1 L RDW 18.9 H Plt Count 93 L MPV 11.9 H Neut % (Auto) 77.1 H Lymph % (Auto) 4.6 L Crisp % (Auto) 14.8 H Eos % (Auto) 2.1 Baso % (Auto) 1.4 Neut # (Auto) 47.6 H Lymph # (Auto) 2.8 Crisp # (Auto) 9.1 H Eos # (Auto) 1.3 H Baso # (Auto) 0.9 H Neutrophils % (Manual) 56 Band Neutrophils % 16 H* Lymphocytes % (Manual) 6 L Reactive Lymphs % 1 H Monocytes % (Manual) 13 H Eosinophils % (Manual) 1 Metamyelocytes % 2 H Myelocytes % 5 H Nucleated RBC % 1 H Platelet Estimate Decreased L Large Platelets Present Polychromasia Slight Hypochromasia (manual) Slight Poikilocytosis (manual Slight Anisocytosis (manual) Slight Microcytosis (manual) Slight LAP Score 163 Sodium Potassium Chloride Carbon Dioxide Anion Gap BUN Creatinine Est GFR ( Amer) Est GFR (Non-Af Amer) Random Glucose Calcium Phosphorus Magnesium Total Bilirubin AST ALT Alkaline Phosphatase Troponin I < 0.0120 Total Protein Albumin Globulin Albumin/Globulin Ratio Procalcitonin Urine Color Yellow Urine Clarity Hazy Urine pH 5.0 Ur Specific Naylor 1.012 Urine Protein 2+ H Urine Glucose (UA) 1+ Urine Ketones Trace Urine Blood 1+ H Urine Nitrate Negative Urine Bilirubin Negative Urine Urobilinogen 4.0 H Ur Leukocyte Esterase 3+ H Urine WBC (Auto) 41 H Urine RBC (Auto) 13 H Ur Squamous Epith Cells 3 Urine Bacteria Rare Hyaline Casts 3-5 H 05/02/18 05/02/18 06:12 06:12 WBC RBC Hgb Hct MCV MCH MCHC RDW Plt Count MPV Neut % (Auto) Lymph % (Auto) Crisp % (Auto) Eos % (Auto) Baso % (Auto) Neut # (Auto) Lymph # (Auto) Crisp # (Auto) Eos # (Auto) Baso # (Auto) Neutrophils % (Manual) Band Neutrophils % Lymphocytes % (Manual) Reactive Lymphs % Monocytes % (Manual) Eosinophils % (Manual) Metamyelocytes % Myelocytes % Nucleated RBC % Platelet Estimate Large Platelets Polychromasia Hypochromasia (manual) Poikilocytosis (manual Anisocytosis (manual) Microcytosis (manual) LAP Score Sodium 138 Potassium 3.7 Chloride 105 Carbon Dioxide 26 Anion Gap 11 BUN 40 H Creatinine 2.2 H Est GFR ( Amer) 27 Est GFR (Non-Af Amer) 22 Random Glucose 95 Calcium 8.4 L Phosphorus 2.0 L Magnesium 1.8 Total Bilirubin 1.4 H AST 17 ALT 29 Alkaline Phosphatase 58 Troponin I Total Protein 5.7 L Albumin 3.0 L Globulin 2.8 Albumin/Globulin Ratio 1.1 Procalcitonin 1.26 H Urine Color Urine Clarity Urine pH Ur Specific Naylor Urine Protein Urine Glucose (UA) Urine Ketones Urine Blood Urine Nitrate Urine Bilirubin Urine Urobilinogen Ur Leukocyte Esterase Urine WBC (Auto) Urine RBC (Auto) Ur Squamous Epith Cells Urine Bacteria Hyaline Casts Intake & Output: Intake & Output 05/01/18 05/02/18 05/02/18 18:59 06:59 18:59 Intake Total 1155.2 280.4 500 Output Total 600 200 3 Balance 555.2 80.4 497 Intake: Intake, IV Amount 235.2 60.4 0 Right Forearm 135.2 10.4 Right PICC 100 50 0 Oral 920 220 500 Output: Urine 600 200 2 Urine, Voided 600 200 2 Stool 1 Other: # Voids Urine, Voided 0 1 # Bowel Movements 0 Vital Signs: Vital Signs - 24 hr 05/01/18 05/01/18 05/01/18 17:44 18:00 18:02 Temperature Pulse Rate 86 86 Respiratory 30 H 31 H Rate Blood Pressure 100/56 L 116/62 O2 Sat by Pulse 98 97 Oximetry 05/01/18 05/01/18 05/01/18 19:00 19:02 20:00 Temperature Pulse Rate 90 88 84 Respiratory 36 H 30 H Rate Blood Pressure 115/67 O2 Sat by Pulse 93 L 99 Oximetry 05/01/18 05/01/18 05/01/18 20:02 22:02 23:00 Temperature Pulse Rate 86 79 81 Respiratory 29 H 21 32 H Rate Blood Pressure 115/64 115/53 L O2 Sat by Pulse 98 98 97 Oximetry 05/01/18 05/02/18 05/02/18 23:02 00:02 01:00 Temperature Pulse Rate 78 79 Respiratory 21 18 Rate Blood Pressure 122/68 112/52 L O2 Sat by Pulse 99 100 Oximetry 05/02/18 05/02/18 05/02/18 01:02 02:00 02:02 Temperature Pulse Rate 80 78 78 Respiratory 18 19 19 Rate Blood Pressure 115/56 L 104/58 L O2 Sat by Pulse 100 99 100 Oximetry 05/02/18 05/02/18 05/02/18 03:00 03:02 04:02 Temperature Pulse Rate 81 78 79 Respiratory 25 H 21 21 Rate Blood Pressure 96/60 L 106/61 O2 Sat by Pulse 100 100 97 Oximetry 05/02/18 05/02/18 05/02/18 05:02 06:00 06:03 Temperature Pulse Rate 75 77 Respiratory 19 19 Rate Blood Pressure 111/57 L 118/56 L O2 Sat by Pulse 99 98 Oximetry 05/02/18 05/02/18 05/02/18 07:00 07:02 08:00 Temperature 97.9 F Pulse Rate 81 81 84 Respiratory 25 H 28 H 26 H Rate Blood Pressure 132/68 132/68 O2 Sat by Pulse 97 97 99 Oximetry 05/02/18 05/02/18 05/02/18 08:02 09:00 09:02 Temperature Pulse Rate 83 87 87 Respiratory 22 30 H 21 Rate Blood Pressure 120/69 123/62 O2 Sat by Pulse 100 92 L 98 Oximetry 05/02/18 05/02/18 05/02/18 09:05 09:06 10:00 Temperature Pulse Rate 85 79 Respiratory 26 H 21 Rate Blood Pressure 116/69 116/69 O2 Sat by Pulse 96 93 L Oximetry 05/02/18 05/02/18 05/02/18 10:02 11:12 12:00 Temperature 98.6 F Pulse Rate 78 77 82 Respiratory 21 16 Rate Blood Pressure 103/46 L 114/68 O2 Sat by Pulse 92 L 95 Oximetry 05/02/18 05/02/18 05/02/18 12:02 13:00 13:26 Temperature Pulse Rate 82 82 83 Respiratory 13 16 21 Rate Blood Pressure 114/68 86/55 L O2 Sat by Pulse 97 93 L 94 L Oximetry 05/02/18 05/02/18 05/02/18 13:31 14:00 14:02 Temperature Pulse Rate 83 83 83 Respiratory 26 H 20 33 H Rate Blood Pressure 116/65 115/62 O2 Sat by Pulse 95 97 94 L Oximetry 05/02/18 05/02/18 05/02/18 15:00 15:02 16:00 Temperature 99 F Pulse Rate 82 82 78 Respiratory 30 H 21 25 H Rate Blood Pressure 128/67 128/67 O2 Sat by Pulse 97 96 94 L Oximetry 05/02/18 16:02 Temperature Pulse Rate 81 Respiratory 24 Rate Blood Pressure 114/52 L O2 Sat by Pulse 95 Oximetry - Physical Exam Abdominal Exam: Soft, Non-Tender, Non-Distended Back: No CVA Tenderness Extremities: Normal: Bilateral - Plan Intake & Output: Yes Additional Information: IMP: improved clinically overall. UTI. Hydronephrosis. Rec/P: stent in place. antibiotic rx. Pt will require rtg pyelogram and ureterosopy. Discussed w pt. YS - Date & Time of Note Date: 05/02/18 Time: 10:55
--- NOTE | 2018-05-02 19:29 | CP.PCM.PN ---
Subjective - Date & Time of Evaluation Date of Evaluation: 05/02/18 Time of Evaluation: 19:24 - Subjective Subjective: INFECTIOUS DISEASE ICU PROGRESS NOTES JANY PATTERSON MD, FACP 05/02/2018 CHART REVIEWED PT EXAMINED CASE DISCUSSED CLINCIALLY LOOKS GREAT-AFEBRILE WITHOUT ANY MAJOR PAINS WHATSOEVER! LUNGS CLEARING COR RR ABD SOFT EXT NO RASH LAP NICE AND LOW MORE CONSISTENT WITH NO BACTERIAL INFECTION PROCALCITONIN IS NOT THAT SIGNIFICANT IN A PT WITH A CHRONIC INFLAMMATORY PROCESS LIKE MALIGNANCY. REPEAT C/S NEGATIVE CONSIDER D/C'ING AB SOON AND OBSERVING THE PT ACCORDINGLY. CONSIDER RESTARTING HER MYLEODYSPLASIA MEDS SOON. JANY PATTERSON MD, FACP Objective - Vital Signs/Intake and Output Vital Signs (last 24 hours): Temp Pulse Resp BP Pulse Ox 99 F 85 19 126/65 95 05/02/18 16:00 05/02/18 17:00 05/02/18 17:00 05/02/18 17:39 05/02/18 17:00 Intake and Output: 05/02/18 05/03/18 18:59 06:59 Intake Total 600 Output Total 3 Balance 597 - Medications Medications: Current Medications Acetaminophen (Tylenol 325mg Tab) 650 mg PO Q6 PRN PRN Reason: Pain, Mild (1-3) Last Admin: 04/30/18 11:51 Dose: 650 mg Apixaban (Eliquis) 2.5 mg PO Q12 [facility] Last Admin: 05/02/18 11:00 Dose: 2.5 mg Famotidine (Pepcid) 20 mg PO DAILY [facility] Last Admin: 05/02/18 09:04 Dose: 20 mg Furosemide (Lasix) 20 mg PO BID [facility] Last Admin: 05/02/18 17:39 Dose: 20 mg Cefepime HCl 0.5 gm/ Sodium (Chloride) 50 mls @ 100 mls/hr IVPB Q24H [facility] Potassium Chloride (Klor-Con 10) 10 meq PO BRK [facility] Last Admin: 05/02/18 08:11 Dose: 10 meq Propranolol HCl (Inderal) 20 mg PO TID [facility] Last Admin: 05/02/18 17:39 Dose: 20 mg - Labs Labs: 05/02/18 06:12 05/02/18 06:12 PT 16.0 SECONDS (9.7-12.2) H 04/28/18 16:55 INR 1.5 04/28/18 16:55 APTT 51 SECONDS (21-34) H D 05/01/18 06:22
--- NOTE | 2018-05-02 23:25 | CP.PCM.PN ---
Subjective - Date & Time of Evaluation Date of Evaluation: 05/02/18 Time of Evaluation: 15:30 - Subjective Subjective: Patient seen and evaluated Denies chest pain and dyspnea Improved breathing Objective - Vital Signs/Intake and Output Vital Signs (last 24 hours): Temp Pulse Resp BP Pulse Ox 98.7 F 86 18 130/71 96 05/02/18 20:00 05/02/18 20:00 05/02/18 20:00 05/02/18 20:00 05/02/18 20:00 Intake and Output: 05/02/18 05/03/18 18:59 06:59 Intake Total 600 Output Total 4 Balance 596 - Medications Medications: Current Medications Acetaminophen (Tylenol 325mg Tab) 650 mg PO Q6 PRN PRN Reason: Pain, Mild (1-3) Last Admin: 04/30/18 11:51 Dose: 650 mg Apixaban (Eliquis) 2.5 mg PO Q12 [facility] Last Admin: 05/02/18 21:45 Dose: 2.5 mg Famotidine (Pepcid) 20 mg PO DAILY [facility] Last Admin: 05/02/18 09:04 Dose: 20 mg Furosemide (Lasix) 20 mg PO BID [facility] Last Admin: 05/02/18 17:39 Dose: 20 mg Cefepime HCl 0.5 gm/ Sodium (Chloride) 50 mls @ 100 mls/hr IVPB Q24H [facility] Last Admin: 05/02/18 20:03 Dose: 100 mls/hr Potassium Chloride (Klor-Con 10) 10 meq PO BRK [facility] Last Admin: 05/02/18 08:11 Dose: 10 meq Propranolol HCl (Inderal) 20 mg PO TID [facility] Last Admin: 05/02/18 17:39 Dose: 20 mg - Labs Labs: 05/02/18 06:12 05/02/18 06:12 PT 16.0 SECONDS (9.7-12.2) H 04/28/18 16:55 INR 1.5 04/28/18 16:55 APTT 51 SECONDS (21-34) H D 05/01/18 06:22
[2018-05-03 06:33] LABS: BASO # 0.9 K/uL (0.0-0.2); BASO % 1.2 % (0.0-2.0); EOS # 1.6 K/uL (0.0-0.7); EOS % 2.3 % (0.0-4.0); HEMOGLOBIN 10.3 g/dL (11.0-16.0); LYMPH # 2.1 K/uL (1.0-4.3); MEAN CELL VOLUME 89.6 fL (81.0-99.0); MEAN CORPUSCULAR HEMOGLOBIN 28.1 pg (27.0-31.0); MEAN CORPUSCULAR HGB CONC 31.3 g/dL (33.0-37.0); MEAN PLATELET VOLUME 11.8 fL (7.2-11.7); MONO # 9.9 K/uL (0.0-0.8); MONO % 14.3 % (0.0-10.0); NEUT # 55.2 K/uL (1.8-7.0); NEUT % 79.2 % (50.0-75.0); NRBC % 1.2 % (0.0-2.0); PLATELET COUNT 83 K/uL (130-400); RBC 3.67 Mil/uL (3.80-5.20); RED CELL DISTRIBUTION WIDTH 19.1 % (11.5-14.5)
[2018-05-03 06:44] LABS: ALB/GLOB RATIO 1.1 (1.0-2.1); CALCIUM 8.4 mg/dl (8.6-10.4)
[2018-05-03 06:47] LABS: WHITE BLOOD COUNT 69.8 K/uL (4.8-10.8)
[2018-05-03] MEDS: Potassium Chloride 10 mEq ER Tab PO SCH (09:00)
[2018-05-03 09:01] LABS: BANDS 15 % (0-2); EOSINOPHIL 1 % (0-4); LYMPHOCYTE 3 % (20-40); METAMYELOCYTE 3 % (0-0); MONOCYTE 12 % (0-10); MYELOCYTE 16 % (0-0); NEUTROPHIL 48 % (50-75); NUCLEATED RED BLOOD CELL 3 % (0-0); PROMYELOCYTE 2 % (0-0); TOTAL CELLS COUNTED 100
[2018-05-03 09:02] LABS: ANISOCYTOSIS SLIGHT; POIKILOCYTOSIS SLIGHT
[2018-05-03 09:03] LABS: HYPOCHROMIC SLIGHT; PLATELET ESTIMATE DECREASED (NORMAL); POLYCHROMIC SLIGHT
[2018-05-03 09:05] LABS: MICROCYTOSIS SLIGHT; TEARDROP CELLS SLIGHT
[2018-05-03 09:06] LABS: LARGE PLATELETS PRESENT
--- NOTE | 2018-05-03 09:19 | CP.PCM.PN ---
Subjective - Date & Time of Evaluation Date of Evaluation: 05/03/18 Time of Evaluation: 08:00 - Subjective Subjective: f/u cirrhosis Reprots feeling better. Denies CP, abdom pain, fever, chills, HILL, cough, hemoptysis, SZ Objective - Vital Signs/Intake and Output Vital Signs (last 24 hours): Temp Pulse Resp BP Pulse Ox 98.1 F 79 18 110/53 L 96 05/03/18 00:00 05/03/18 00:00 05/03/18 00:00 05/03/18 00:00 05/03/18 00:00 Intake and Output: 05/03/18 05/03/18 06:59 18:59 Intake Total 100 Output Total 800 Balance -700 - Medications Medications: Current Medications Acetaminophen (Tylenol 325mg Tab) 650 mg PO Q6 PRN PRN Reason: Pain, Mild (1-3) Last Admin: 04/30/18 11:51 Dose: 650 mg Apixaban (Eliquis) 2.5 mg PO Q12 [facility] Last Admin: 05/02/18 21:45 Dose: 2.5 mg Famotidine (Pepcid) 20 mg PO DAILY [facility] Last Admin: 05/02/18 09:04 Dose: 20 mg Furosemide (Lasix) 20 mg PO BID [facility] Last Admin: 05/02/18 17:39 Dose: 20 mg Cefepime HCl 0.5 gm/ Sodium (Chloride) 50 mls @ 100 mls/hr IVPB Q24H [facility] Last Admin: 05/02/18 20:03 Dose: 100 mls/hr Potassium Chloride (Klor-Con 10) 10 meq PO BRK [facility] Last Admin: 05/02/18 08:11 Dose: 10 meq Propranolol HCl (Inderal) 20 mg PO TID [facility] Last Admin: 05/02/18 17:39 Dose: 20 mg - Labs Labs: 05/03/18 06:28 05/03/18 06:28 PT 16.0 SECONDS (9.7-12.2) H 04/28/18 16:55 INR 1.5 04/28/18 16:55 APTT 51 SECONDS (21-34) H D 05/01/18 06:22 - Constitutional Appears: Well - Respiratory Exam Respiratory Exam: Rales - Cardiovascular Exam Cardiovascular Exam: RRR - GI/Abdominal Exam GI & Abdominal Exam: Soft, Normal Bowel Sounds. 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
--- NOTE | 2018-05-03 16:16 | CP.PCM.PN ---
Subjective - Date & Time of Evaluation Date of Evaluation: 05/03/18 Time of Evaluation: 13:15 - Subjective Subjective: clinically same Objective - Vital Signs/Intake and Output Vital Signs (last 24 hours): Temp Pulse Resp BP Pulse Ox 98.1 F 79 18 122/70 96 05/03/18 00:00 05/03/18 08:00 05/03/18 00:00 05/03/18 09:54 05/03/18 00:00 Intake and Output: 05/03/18 05/03/18 06:59 18:59 Intake Total 100 Output Total 800 Balance -700 - Medications Medications: Current Medications Acetaminophen (Tylenol 325mg Tab) 650 mg PO Q6 PRN PRN Reason: Pain, Mild (1-3) Last Admin: 04/30/18 11:51 Dose: 650 mg Apixaban (Eliquis) 2.5 mg PO Q12 [facility] Last Admin: 05/03/18 09:55 Dose: 2.5 mg Famotidine (Pepcid) 20 mg PO DAILY [facility] Last Admin: 05/03/18 10:01 Dose: 20 mg Cefepime HCl 0.5 gm/ Sodium (Chloride) 50 mls @ 100 mls/hr IVPB Q24H [facility] Last Admin: 05/02/18 20:03 Dose: 100 mls/hr Potassium Chloride (Klor-Con 10) 10 meq PO BRK [facility] Last Admin: 05/03/18 09:00 Dose: 10 meq Propranolol HCl (Inderal) 20 mg PO TID [facility] Last Admin: 05/03/18 09:54 Dose: 20 mg - Labs Labs: 05/03/18 06:28 05/03/18 06:28 PT 16.0 SECONDS (9.7-12.2) H 04/28/18 16:55 INR 1.5 04/28/18 16:55 APTT 51 SECONDS (21-34) H D 05/01/18 06:22 - Constitutional Appears: Well - Head Exam Head Exam: ATRAUMATIC, NORMAL INSPECTION, NORMOCEPHALIC - Eye Exam Eye Exam: EOMI, Normal appearance, PERRL Pupil Exam: NORMAL ACCOMODATION, PERRL - ENT Exam ENT Exam: Mucous Membranes Moist, Normal Exam - Neck Exam Neck Exam: Full ROM, Normal Inspection. absent: Lymphadenopathy - Respiratory Exam Respiratory Exam: Decreased Breath Sounds - Cardiovascular Exam Cardiovascular Exam: REGULAR RHYTHM, +S1, +S2 - GI/Abdominal Exam GI & Abdominal Exam: Soft, Diminished Bowel Sounds - Rectal Exam Rectal Exam: Deferred
--- NOTE | 2018-05-03 23:09 | CP.PCM.PN ---
Subjective - Date & Time of Evaluation Date of Evaluation: 05/03/18 Time of Evaluation: 11:30 - Subjective Subjective: Patient seen and evaluated denies chest pain and dyspnea Now in NSR Objective - Vital Signs/Intake and Output Vital Signs (last 24 hours): Temp Pulse Resp BP Pulse Ox 98.7 F 84 18 122/70 100 05/03/18 20:00 05/03/18 20:00 05/03/18 00:00 05/03/18 09:54 05/03/18 12:00 - Medications Medications: Current Medications Acetaminophen (Tylenol 325mg Tab) 650 mg PO Q6 PRN PRN Reason: Pain, Mild (1-3) Last Admin: 04/30/18 11:51 Dose: 650 mg Apixaban (Eliquis) 2.5 mg PO Q12 [facility] Last Admin: 05/03/18 21:48 Dose: 2.5 mg Famotidine (Pepcid) 20 mg PO DAILY [facility] Last Admin: 05/03/18 10:01 Dose: 20 mg Cefepime HCl 0.5 gm/ Sodium (Chloride) 50 mls @ 100 mls/hr IVPB Q24H [facility] Last Admin: 05/03/18 19:38 Dose: Not Given Potassium Chloride (Klor-Con 10) 10 meq PO BRK [facility] Last Admin: 05/03/18 09:00 Dose: 10 meq Propranolol HCl (Inderal) 20 mg PO TID [facility] Last Admin: 05/03/18 18:09 Dose: 20 mg - Labs Labs: 05/03/18 06:28 05/03/18 06:28 PT 16.0 SECONDS (9.7-12.2) H 04/28/18 16:55 INR 1.5 04/28/18 16:55 APTT 51 SECONDS (21-34) H D 05/01/18 06:22
--- NOTE | 2018-05-04 08:22 | CARD ---
APPROVED REPORT Date of service: 04/30/2018 EKG Measurement Heart [id number] <Conclusion> Normal sinus rhythm Nonspecific ST and T wave abnormality Abnormal ECG
[2018-05-04] MEDS: Potassium Chloride 10 mEq ER Tab PO SCH (09:10)
--- NOTE | 2018-05-04 10:36 | CP.PCM.PN ---
Subjective - Date & Time of Evaluation Date of Evaluation: 05/04/18 Time of Evaluation: 10:15 - Subjective Subjective: f/u cirrhosis Reports abdom pain today- RUQ, mod. Dec appetite Denies constip, diarrhea, fever, chills, SOB, RB, melena, myalgia Objective - Vital Signs/Intake and Output Vital Signs (last 24 hours): Temp Pulse Resp BP Pulse Ox 97.8 F 78 23 121/66 93 L 05/04/18 04:00 05/04/18 04:00 05/04/18 04:00 05/04/18 04:00 05/04/18 04:00 Intake and Output: 05/04/18 05/04/18 06:59 18:59 Intake Total 100 Output Total 700 Balance -600 - Medications Medications: Current Medications Acetaminophen (Tylenol 325mg Tab) 650 mg PO Q6 PRN PRN Reason: Pain, Mild (1-3) Last Admin: 05/04/18 09:10 Dose: 650 mg Apixaban (Eliquis) 2.5 mg PO Q12 [facility] Last Admin: 05/04/18 09:10 Dose: 2.5 mg Famotidine (Pepcid) 20 mg PO DAILY [facility] Last Admin: 05/04/18 09:21 Dose: 20 mg Cefepime HCl 0.5 gm/ Sodium (Chloride) 50 mls @ 100 mls/hr IVPB Q24H [facility] Last Admin: 05/03/18 19:38 Dose: Not Given Potassium Chloride (Klor-Con 10) 10 meq PO BRK [facility] Last Admin: 05/04/18 09:10 Dose: 10 meq Propranolol HCl (Inderal) 20 mg PO TID [facility] Last Admin: 05/04/18 09:09 Dose: 20 mg - Labs Labs: 05/03/18 06:28 05/03/18 06:28 PT 16.0 SECONDS (9.7-12.2) H 04/28/18 16:55 INR 1.5 04/28/18 16:55 APTT 51 SECONDS (21-34) H D 05/01/18 06:22 - Respiratory Exam Respiratory Exam: Clear to Ausculation Bilateral - Cardiovascular Exam Cardiovascular Exam: RRR - GI/Abdominal Exam GI & Abdominal Exam: Soft, Tenderness, Normal Bowel Sounds. absent: Guarding, Mass, Rebound Additional comments: Mild epig tenderness - Extremities Exam Extremities Exam: absent: Calf Tenderness - Neurological Exam Neurological Exam: Alert, Awake, Oriented x3 Assessment and Plan (1) Portal vein thrombosis Status: Acute (2) Anemia Status: Acute (3) Hepatosplenomegaly Status: Acute (4) Leucocytosis Status: Acute (5) Myelofibrosis Status: Acute (6) Thrombocytopenia Status: Acute (7) Varices of other sites Status: Acute (8) CHF (congestive heart failure) Status: Acute (9) Pyelonephritis Status: Acute (10) Abdominal pain Assessment & Plan: Consider gastritis. Patient has portal vein thrombosis. On Eliquis. Consider heparin. Check sono today Discussed with DR Gale Status: Acute
--- NOTE | 2018-05-04 12:57 | US ---
Date of service: 05/04/2018 HISTORY: portal vein thrombosis, RUQ pain COMPARISON: Correlations made to CT scan of the chest, abdomen and pelvis dated 05/01/2018. TECHNIQUE: Sonographic evaluation of the abdomen. FINDINGS: LIVER: Measures 24.4 cm. Normal echogenicity of the liver parenchyma. No mass. No intrahepatic bile duct dilatation. Hepatofugal flow in main and left portal veins. Small volume perihepatic ascites. GALLBLADDER: Cholelithiasis without gallbladder wall thickening/edema or pericholecystic fluid. Sonographic Hidalgo's sign was not elicited. COMMON BILE DUCT: Measures 4 mm. No stones. No dilatation. PANCREAS: Unremarkable as visualized. No mass. No ductal dilatation. RIGHT KIDNEY: Measures 9.0 x 3.5 x 4.2cm. Normal echogenicity. No calculus, mass, or hydronephrosis. LEFT KIDNEY: Measures 9.2 x 3.4 x 4.7cm. Normal echogenicity. No calculus, mass, or hydronephrosis. SPLEEN: Enlarged measuring 20.3 cm. Heterogeneous intrasplenic mass measuring 6.8 x 3.7 x 5.8 cm. Hypoechoic intrasplenic mass measuring 1.9 x 1.7 x 1.7 cm. Echogenic intrasplenic mass measuring 0.9 x 0.7 x 0.8 cm. AORTA: No aneurysmal dilatation. IVC: Unremarkable. OTHER FINDINGS: None. IMPRESSION: Hepatosplenomegaly with turbulent hepatofugal flow in the patent main and left portal veins compatible with portal hypertension. Small volume perihepatic ascites. Nonspecific intrasplenic masses as above described. Cholelithiasis without sonographic evidence for acute cholecystitis.
[2018-05-04] MEDS ORDERED: Aluminum Hydroxide/Magnesium Hydroxide Susp (30 mL) PO ONE (13:33)
--- NOTE | 2018-05-04 14:07 | CP.PCM.PN ---
Subjective - Date & Time of Evaluation Date of Evaluation: 05/04/18 Time of Evaluation: 14:06 Objective - Vital Signs/Intake and Output Vital Signs (last 24 hours): Temp Pulse Resp BP Pulse Ox 97.8 F 86 23 121/66 93 L 05/04/18 04:00 05/04/18 08:00 05/04/18 04:00 05/04/18 04:00 05/04/18 04:00 Intake and Output: 05/04/18 05/04/18 06:59 18:59 Intake Total 100 Output Total 700 Balance -600 - Medications Medications: Current Medications Acetaminophen (Tylenol 325mg Tab) 650 mg PO Q6 PRN PRN Reason: Pain, Mild (1-3) Last Admin: 05/04/18 09:10 Dose: 650 mg Apixaban (Eliquis) 2.5 mg PO Q12 [facility] Last Admin: 05/04/18 09:10 Dose: 2.5 mg Famotidine (Pepcid) 20 mg PO DAILY [facility] Last Admin: 05/04/18 09:21 Dose: 20 mg Cefepime HCl 0.5 gm/ Sodium (Chloride) 50 mls @ 100 mls/hr IVPB Q24H [facility] Last Admin: 05/03/18 19:38 Dose: Not Given Potassium Chloride (Klor-Con 10) 10 meq PO BRK [facility] Last Admin: 05/04/18 09:10 Dose: 10 meq Propranolol HCl (Inderal) 20 mg PO TID [facility] Last Admin: 05/04/18 09:09 Dose: 20 mg - Labs Labs: 05/03/18 06:28 05/03/18 06:28 PT 16.0 SECONDS (9.7-12.2) H 04/28/18 16:55 INR 1.5 04/28/18 16:55 APTT 51 SECONDS (21-34) H D 05/01/18 06:22
--- NOTE | 2018-05-04 14:23 | CP.PCM.PN ---
Subjective - Date & Time of Evaluation Date of Evaluation: 05/04/18 Time of Evaluation: 14:30 - Subjective Subjective: clinically same Objective - Vital Signs/Intake and Output Vital Signs (last 24 hours): Temp Pulse Resp BP Pulse Ox 97.8 F 86 23 121/66 93 L 05/04/18 04:00 05/04/18 08:00 05/04/18 04:00 05/04/18 04:00 05/04/18 04:00 Intake and Output: 05/04/18 05/04/18 06:59 18:59 Intake Total 100 Output Total 700 Balance -600 - Medications Medications: Current Medications Acetaminophen (Tylenol 325mg Tab) 650 mg PO Q6 PRN PRN Reason: Pain, Mild (1-3) Last Admin: 05/04/18 09:10 Dose: 650 mg Apixaban (Eliquis) 2.5 mg PO Q12 [facility] Last Admin: 05/04/18 09:10 Dose: 2.5 mg Famotidine (Pepcid) 20 mg PO DAILY [facility] Last Admin: 05/04/18 09:21 Dose: 20 mg Cefepime HCl 0.5 gm/ Sodium (Chloride) 50 mls @ 100 mls/hr IVPB Q24H [facility] Last Admin: 05/03/18 19:38 Dose: Not Given Potassium Chloride (Klor-Con 10) 10 meq PO BRK [facility] Last Admin: 05/04/18 09:10 Dose: 10 meq Propranolol HCl (Inderal) 20 mg PO TID [facility] Last Admin: 05/04/18 09:09 Dose: 20 mg - Labs Labs: 05/03/18 06:28 05/03/18 06:28 PT 16.0 SECONDS (9.7-12.2) H 04/28/18 16:55 INR 1.5 04/28/18 16:55 APTT 51 SECONDS (21-34) H D 05/01/18 06:22 - Constitutional Appears: Well - Head Exam Head Exam: ATRAUMATIC, NORMAL INSPECTION, NORMOCEPHALIC - Eye Exam Eye Exam: EOMI, Normal appearance, PERRL Pupil Exam: NORMAL ACCOMODATION, PERRL - ENT Exam ENT Exam: Mucous Membranes Moist, Normal Exam - Neck Exam Neck Exam: Full ROM, Normal Inspection. absent: Lymphadenopathy - Respiratory Exam Respiratory Exam: Decreased Breath Sounds - Cardiovascular Exam Cardiovascular Exam: REGULAR RHYTHM, +S1, +S2 - Rectal Exam Rectal Exam: Deferred Assessment and Plan - Assessment and Plan (Free Text) Plan: IV patient with WBC count went up all the way to 103 and needs to start the medicine for myelofibrosis and discussed with the family who is bedside at length also patient's onset E prime but Narinder will not start the patient in the medicine is 70 by me stop Continue same Patient's creatinine is getting worse on Patient encouraged to eat A very caring family all the time there and discussed with the family
[2018-05-04 14:31] LABS: BASO # 0.8 K/uL (0.0-0.2); BASO % 0.8 % (0.0-2.0); EOS # 1.4 K/uL (0.0-0.7); EOS % 1.4 % (0.0-4.0); HEMOGLOBIN 8.6 g/dL (11.0-16.0); LYMPH # 2.5 K/uL (1.0-4.3); LYMPH % 2.5 % (20.0-40.0); MEAN CELL VOLUME 90.3 fL (81.0-99.0); MEAN CORPUSCULAR HEMOGLOBIN 27.1 pg (27.0-31.0); MEAN PLATELET VOLUME 14.1 fL (7.2-11.7); MONO # 12.7 K/uL (0.0-0.8); MONO % 12.3 % (0.0-10.0); NEUT # 85.9 K/uL (1.8-7.0); NRBC % 0.5 % (0.0-2.0); RBC 3.17 Mil/uL (3.80-5.20); RED CELL DISTRIBUTION WIDTH 19.2 % (11.5-14.5)
[2018-05-04 14:38] LABS: PLATELET COUNT 79 K/uL (130-400); WHITE BLOOD COUNT 103.4 K/uL (4.8-10.8)
[2018-05-04 14:52] LABS: ALBUMIN 2.7 g/dL (3.5-5.0)
[2018-05-04] MEDS: Sodium Chloride 0.9% 1,000 ML IV SCH (15:21)
[2018-05-04 15:47] LABS: BANDS 11 % (0-2); BASOPHIL 1 % (0-2); EOSINOPHIL 1 % (0-4); METAMYELOCYTE 6 % (0-0); MONOCYTE 15 % (0-10); MYELOCYTE 11 % (0-0); NEUTROPHIL 47 % (50-75); REACTIVE LYMPHOCYTES 3 % (0-0); TOTAL CELLS COUNTED 100
[2018-05-04 15:48] LABS: LYMPHOCYTE 3 % (20-40); PLATELET ESTIMATE DECREASED (NORMAL); PROMYELOCYTE 2 % (0-0)
[2018-05-04 15:49] LABS: ANISOCYTOSIS SLIGHT; LARGE PLATELETS PRESENT
[2018-05-04 15:50] LABS: NUCLEATED RED BLOOD CELL 7 % (0-0); POIKILOCYTOSIS SLIGHT; POLYCHROMIC SLIGHT
[2018-05-04 15:52] LABS: OVALOCYTES SLIGHT; TEARDROP CELLS SLIGHT
--- NOTE | 2018-05-04 18:56 | CP.PCM.PN ---
Subjective - Date & Time of Evaluation Date of Evaluation: 05/02/18 Time of Evaluation: 13:00 - Subjective Subjective: Feeling better Objective - Vital Signs/Intake and Output Vital Signs (last 24 hours): Temp Pulse Resp BP Pulse Ox 97.6 F 86 23 121/66 99 05/04/18 12:00 05/04/18 08:00 05/04/18 04:00 05/04/18 04:00 05/04/18 12:00 Intake and Output: 05/04/18 05/04/18 06:59 18:59 Intake Total 100 330 Output Total 700 Balance -600 330 - Medications Medications: Current Medications Acetaminophen (Tylenol 325mg Tab) 650 mg PO Q6 PRN PRN Reason: Pain, Mild (1-3) Last Admin: 05/04/18 18:38 Dose: 650 mg Apixaban (Eliquis) 2.5 mg PO Q12 [facility] Last Admin: 05/04/18 09:10 Dose: 2.5 mg Famotidine (Pepcid) 20 mg PO DAILY [facility] Last Admin: 05/04/18 09:21 Dose: 20 mg Hydroxyurea (Hydrea) 500 mg PO BID [facility] Last Admin: 05/04/18 18:34 Dose: 500 mg Cefepime HCl 0.5 gm/ Sodium (Chloride) 50 mls @ 100 mls/hr IVPB Q24H [facility] Last Admin: 05/03/18 19:38 Dose: Not Given Sodium Chloride (Sodium Chloride 0.9%) 1,000 mls @ 50 mls/hr IV .Q20H [facility] Last Admin: 05/04/18 15:21 Dose: 50 mls/hr Potassium Chloride (Klor-Con 10) 10 meq PO BRK [facility] Last Admin: 05/04/18 09:10 Dose: 10 meq Propranolol HCl (Inderal) 20 mg PO TID [facility] Last Admin: 05/04/18 18:35 Dose: 20 mg - Labs Labs: 05/04/18 14:27 05/04/18 14:27 PT 16.0 SECONDS (9.7-12.2) H 04/28/18 16:55 INR 1.5 04/28/18 16:55 APTT 51 SECONDS (21-34) H D 05/01/18 06:22 - Head Exam Head Exam: ATRAUMATIC - Eye Exam Eye Exam: Normal appearance - ENT Exam ENT Exam: Mucous Membranes Dry - Respiratory Exam Respiratory Exam: NORMAL BREATHING PATTERN - Cardiovascular Exam Cardiovascular Exam: +S1, +S2 - GI/Abdominal Exam GI & Abdominal Exam: Normal Bowel Sounds Assessment and Plan (1) Leucocytosis Assessment & Plan: secondary to myelofibrosis Status: Acute (2) Thrombocytopenia Assessment & Plan: improving Status: Acute (3) Hepatosplenomegaly Assessment & Plan: secondary to myelofibrosis Status: Acute (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
--- NOTE | 2018-05-04 19:00 | CP.PCM.PN ---
Subjective - Date & Time of Evaluation Date of Evaluation: 05/03/18 Time of Evaluation: 19:00 - Subjective Subjective: Feeling better To restart Jakafi and Hydrea Objective - Vital Signs/Intake and Output Vital Signs (last 24 hours): Temp Pulse Resp BP Pulse Ox 97.6 F 86 23 121/66 99 05/04/18 12:00 05/04/18 08:00 05/04/18 04:00 05/04/18 04:00 05/04/18 12:00 Intake and Output: 05/04/18 05/04/18 06:59 18:59 Intake Total 100 330 Output Total 700 Balance -600 330 - Medications Medications: Current Medications Acetaminophen (Tylenol 325mg Tab) 650 mg PO Q6 PRN PRN Reason: Pain, Mild (1-3) Last Admin: 05/04/18 18:38 Dose: 650 mg Apixaban (Eliquis) 2.5 mg PO Q12 [facility] Last Admin: 05/04/18 09:10 Dose: 2.5 mg Famotidine (Pepcid) 20 mg PO DAILY [facility] Last Admin: 05/04/18 09:21 Dose: 20 mg Hydroxyurea (Hydrea) 500 mg PO BID [facility] Last Admin: 05/04/18 18:34 Dose: 500 mg Cefepime HCl 0.5 gm/ Sodium (Chloride) 50 mls @ 100 mls/hr IVPB Q24H [facility] Last Admin: 05/03/18 19:38 Dose: Not Given Sodium Chloride (Sodium Chloride 0.9%) 1,000 mls @ 50 mls/hr IV .Q20H [facility] Last Admin: 05/04/18 15:21 Dose: 50 mls/hr Potassium Chloride (Klor-Con 10) 10 meq PO BRK [facility] Last Admin: 05/04/18 09:10 Dose: 10 meq Propranolol HCl (Inderal) 20 mg PO TID [facility] Last Admin: 05/04/18 18:35 Dose: 20 mg - Labs Labs: 05/04/18 14:27 05/04/18 14:27 PT 16.0 SECONDS (9.7-12.2) H 04/28/18 16:55 INR 1.5 04/28/18 16:55 APTT 51 SECONDS (21-34) H D 05/01/18 06:22 - Head Exam Head Exam: ATRAUMATIC - Eye Exam Eye Exam: Normal appearance - ENT Exam ENT Exam: Mucous Membranes Dry - Respiratory Exam Respiratory Exam: NORMAL BREATHING PATTERN - Cardiovascular Exam Cardiovascular Exam: +S1, +S2 - GI/Abdominal Exam GI & Abdominal Exam: Normal Bowel Sounds Assessment and Plan (1) Leucocytosis Assessment & Plan: risisng to restart Jakafi and Hydrea now that antibiotics stopped Status: Acute (2) Thrombocytopenia Assessment & Plan: improved secondary to myelofibrosis Status: Acute (3) Hepatosplenomegaly Assessment & Plan: secondary to myelofibrosis Status: Acute (4) Anemia Assessment & Plan: anemia of chronic disease Status: Acute (5) Myelofibrosis Assessment & Plan: to resume Jakafi and hydroxyurea Status: Acute
[2018-05-04] MEDS ORDERED: Tramadol 25 mg PO STA (20:13)
--- NOTE | 2018-05-04 20:44 | CP.PCM.PN ---
Subjective - Date & Time of Evaluation Date of Evaluation: 05/04/18 Time of Evaluation: 08:30 - Subjective Subjective: Patient with new cardiac events remains in sinus rhythm WBC count rising No fever or chills Objective - Vital Signs/Intake and Output Vital Signs (last 24 hours): Temp Pulse Resp BP Pulse Ox 98.3 F 86 23 121/66 99 05/04/18 19:38 05/04/18 08:00 05/04/18 04:00 05/04/18 04:00 05/04/18 12:00 Intake and Output: 05/04/18 05/05/18 18:59 06:59 Intake Total 330 Balance 330 - Medications Medications: Current Medications Acetaminophen (Tylenol 325mg Tab) 650 mg PO Q6 PRN PRN Reason: Pain, Mild (1-3) Last Admin: 05/04/18 18:38 Dose: 650 mg Apixaban (Eliquis) 2.5 mg PO Q12 [facility] Last Admin: 05/04/18 09:10 Dose: 2.5 mg Famotidine (Pepcid) 20 mg PO DAILY [facility] Last Admin: 05/04/18 09:21 Dose: 20 mg Hydroxyurea (Hydrea) 500 mg PO BID [facility] Last Admin: 05/04/18 18:34 Dose: 500 mg Sodium Chloride (Sodium Chloride 0.9%) 1,000 mls @ 50 mls/hr IV .Q20H [facility] Last Admin: 05/04/18 15:21 Dose: 50 mls/hr Potassium Chloride (Klor-Con 10) 10 meq PO BRK [facility] Last Admin: 05/04/18 09:10 Dose: 10 meq Propranolol HCl (Inderal) 20 mg PO TID [facility] Last Admin: 05/04/18 18:35 Dose: 20 mg - Labs Labs: 05/04/18 14:27 05/04/18 14:27 PT 16.0 SECONDS (9.7-12.2) H 04/28/18 16:55 INR 1.5 04/28/18 16:55 APTT 51 SECONDS (21-34) H D 05/01/18 06:22
[2018-05-05 06:16] LABS: BASO # 1.4 K/uL (0.0-0.2); BASO % 1.3 % (0.0-2.0); EOS # 1.4 K/uL (0.0-0.7); EOS % 1.3 % (0.0-4.0); HEMOGLOBIN 7.8 g/dL (11.0-16.0); LYMPH # 5.2 K/uL (1.0-4.3); MEAN CELL VOLUME 90.9 fL (81.0-99.0); MEAN CORPUSCULAR HEMOGLOBIN 27.1 pg (27.0-31.0); MEAN CORPUSCULAR HGB CONC 29.8 g/dL (33.0-37.0); MEAN PLATELET VOLUME 11.2 fL (7.2-11.7); MONO # 13.1 K/uL (0.0-0.8); MONO % 12.5 % (0.0-10.0); NEUT # 84.3 K/uL (1.8-7.0); NEUT % 79.9 % (50.0-75.0); NRBC % 1.6 % (0.0-2.0); PLATELET COUNT 68 K/uL (130-400); RBC 2.89 Mil/uL (3.80-5.20); RED CELL DISTRIBUTION WIDTH 19.7 % (11.5-14.5)
[2018-05-05 06:23] LABS: WHITE BLOOD COUNT 105.4 K/uL (4.8-10.8)
[2018-05-05 06:41] LABS: ALB/GLOB RATIO 0.9 (1.0-2.1); ALBUMIN 2.6 g/dL (3.5-5.0); CALCIUM 7.5 mg/dl (8.6-10.4)
[2018-05-05 08:33] LABS: BANDS 12 % (0-2); LYMPHOCYTE 4 % (20-40); METAMYELOCYTE 6 % (0-0); MONOCYTE 9 % (0-10); MYELOCYTE 10 % (0-0); NEUTROPHIL 59 % (50-75); NUCLEATED RED BLOOD CELL 1 % (0-0); PLATELET ESTIMATE DECREASED (NORMAL); TOTAL CELLS COUNTED 100
[2018-05-05 08:34] LABS: ANISOCYTOSIS MODERATE
[2018-05-05 08:35] LABS: HYPOCHROMIC SLIGHT; LARGE PLATELETS PRESENT; OVALOCYTES SLIGHT
[2018-05-05] MEDS: Potassium Chloride 10 mEq ER Tab PO SCH (08:50)
--- NOTE | 2018-05-05 09:38 | PCM.URO ---
Urology Progress Note - General General: Tolerating Diet - Subjective Abdominal Pain: Yes Flank Pain: No Nausea: No Vomiting: No Voiding Well: Yes Hematuria: No Stone Passed: No Chest Pain: No Fever & Chills: No - Objective Lab Studies: Reviewed (candiduria leukocytosis) Lab Results Last 24 Hours: Laboratory Results - last 24 hr 05/04/18 05/04/18 05/04/18 14:27 14:27 16:35 WBC 103.4 H* RBC 3.17 L Hgb 8.6 L Hct 28.6 L MCV 90.3 MCH 27.1 MCHC 30.0 L RDW 19.2 H Plt Count 79 L MPV 14.1 H Neut % (Auto) 83.0 H Lymph % (Auto) 2.5 L Leslie % (Auto) 12.3 H Eos % (Auto) 1.4 Baso % (Auto) 0.8 Neut # (Auto) 85.9 H Lymph # (Auto) 2.5 Leslie # (Auto) 12.7 H Eos # (Auto) 1.4 H Baso # (Auto) 0.8 H Neutrophils % (Manual) 47 L Band Neutrophils % 11 H* Lymphocytes % (Manual) 3 L Reactive Lymphs % 3 H Monocytes % (Manual) 15 H Eosinophils % (Manual) 1 Basophils % (Manual) 1 Metamyelocytes % 6 H Myelocytes % 11 H Promyelocytes % 2 H Nucleated RBC % 7 H Platelet Estimate Decreased L Large Platelets Present Polychromasia Slight Hypochromasia (manual) Poikilocytosis (manual Slight Anisocytosis (manual) Slight Tear Drop Cells Slight Ovalocytes Slight Sodium 137 Potassium 4.3 Chloride 105 Carbon Dioxide 22 Anion Gap 14 BUN 45 H Creatinine 2.5 H Est GFR ( Amer) 23 Est GFR (Non-Af Amer) 19 Random Glucose 126 H Lactic Acid Calcium 8.0 L Phosphorus 3.9 Magnesium 2.0 Total Bilirubin 0.8 AST 17 ALT 20 Alkaline Phosphatase 54 NT-Pro-B Natriuret Pep Total Protein 5.6 L Albumin 2.7 L Globulin 2.8 Albumin/Globulin Ratio 1.0 Procalcitonin 2.23 H 05/04/18 05/04/18 05/05/18 16:35 16:35 06:07 WBC 105.4 H* RBC 2.89 L Hgb 7.8 L Hct 26.2 L MCV 90.9 MCH 27.1 MCHC 29.8 L RDW 19.7 H Plt Count 68 L MPV 11.2 Neut % (Auto) 79.9 H Lymph % (Auto) 5.0 L Leslie % (Auto) 12.5 H Eos % (Auto) 1.3 Baso % (Auto) 1.3 Neut # (Auto) 84.3 H Lymph # (Auto) 5.2 H Leslie # (Auto) 13.1 H Eos # (Auto) 1.4 H Baso # (Auto) 1.4 H Neutrophils % (Manual) 59 Band Neutrophils % 12 H* Lymphocytes % (Manual) 4 L Reactive Lymphs % Monocytes % (Manual) 9 Eosinophils % (Manual) Basophils % (Manual) Metamyelocytes % 6 H Myelocytes % 10 H Promyelocytes % Nucleated RBC % 1 H Platelet Estimate Decreased L Large Platelets Present Polychromasia Hypochromasia (manual) Slight Poikilocytosis (manual Anisocytosis (manual) Moderate Tear Drop Cells Ovalocytes Slight Sodium Potassium Chloride Carbon Dioxide Anion Gap BUN Creatinine Est GFR ( Amer) Est GFR (Non-Af Amer) Random Glucose Lactic Acid 1.2 Calcium Phosphorus Magnesium Total Bilirubin AST ALT Alkaline Phosphatase NT-Pro-B Natriuret Pep 5470 H Total Protein Albumin Globulin Albumin/Globulin Ratio Procalcitonin 05/05/18 06:07 WBC RBC Hgb Hct MCV MCH MCHC RDW Plt Count MPV Neut % (Auto) Lymph % (Auto) Leslie % (Auto) Eos % (Auto) Baso % (Auto) Neut # (Auto) Lymph # (Auto) Leslie # (Auto) Eos # (Auto) Baso # (Auto) Neutrophils % (Manual) Band Neutrophils % Lymphocytes % (Manual) Reactive Lymphs % Monocytes % (Manual) Eosinophils % (Manual) Basophils % (Manual) Metamyelocytes % Myelocytes % Promyelocytes % Nucleated RBC % Platelet Estimate Large Platelets Polychromasia Hypochromasia (manual) Poikilocytosis (manual Anisocytosis (manual) Tear Drop Cells Ovalocytes Sodium 139 Potassium 4.4 Chloride 107 Carbon Dioxide 20 L Anion Gap 17 BUN 51 H Creatinine 2.9 H Est GFR ( Amer) 20 Est GFR (Non-Af Amer) 16 Random Glucose 106 H Lactic Acid Calcium 7.5 L Phosphorus Magnesium Total Bilirubin 0.5 AST 16 ALT 23 Alkaline Phosphatase 59 NT-Pro-B Natriuret Pep Total Protein 5.4 L Albumin 2.6 L Globulin 2.8 Albumin/Globulin Ratio 0.9 L Procalcitonin Intake & Output: Intake & Output 05/04/18 05/05/18 05/05/18 18:59 06:59 18:59 Intake Total 330 800 Balance 330 800 Intake: Intake, IV Amount 50 600 Right Forearm 50 600 Oral 280 200 Other: # Voids Urine, Voided 1 3 # Bowel Movements 2 Vital Signs: Vital Signs - 24 hr 05/04/18 05/04/18 05/04/18 12:00 19:38 20:00 Temperature 97.6 F 98.3 F 98.3 F Pulse Rate 83 Respiratory 21 Rate Blood Pressure 102/57 L O2 Sat by Pulse 99 95 Oximetry 05/05/18 05/05/18 05/05/18 00:00 04:00 08:00 Temperature 98.3 F 97.2 F L 98.5 F Pulse Rate 76 71 77 Respiratory 19 20 18 Rate Blood Pressure 101/50 L 114/71 112/63 O2 Sat by Pulse 99 99 97 Oximetry - Physical Exam Abdominal Exam: Soft, Non-Distended. absent: Non-Tender Back: No CVA Tenderness Urine Color: Clear, Yellow Extremities: Lower Extremity Edema: Bilateral - Plan Additional Information: IMP: uti, candiduria. R hydronephrosis. Abd pain. Discussed w ICU staff. Rec: Heme/Onc evaluation and Rx. Rx for uti - Date & Time of Note Date: 05/05/18 Time: 08:25
[2018-05-05 09:55] LABS: SQUAMOUS EPITHIAL 4 /hpf (0-5); URINE BACTERIA OCC (<OCC); URINE BILIRUBIN NEGATIVE (NEGATIVE); URINE BLOOD 2+ (NEGATIVE); URINE CLARITY Hazy (Clear); URINE COLOR Yellow (YELLOW); URINE GLUCOSE (UA) NORMAL (Normal); URINE LEUKOCYTE ESTERASE 3+ Leu/uL (Negative); URINE PROTEIN 2+ mg/dL (NEGATIVE); URINE URIC ACID CRYSTALS MOD /hpf (<OCC); URINE UROBILINOGEN NORMAL mg/dL (0.2-1.0)
[2018-05-05] MEDS: Sodium Chloride 0.9% 1,000 ML IV SCH (11:55)
--- NOTE | 2018-05-05 14:35 | CP.PCM.PN ---
Subjective - Date & Time of Evaluation Date of Evaluation: 05/05/18 Time of Evaluation: 14:33 - Subjective Subjective: f/u portal HTN In ICU Marked leukocytosis. Denies dyspnea or abdominal pain On Eliquis, anemic, without overt bleeding signs Objective - Vital Signs/Intake and Output Vital Signs (last 24 hours): Temp Pulse Resp BP Pulse Ox 98.5 F 81 18 112/63 97 05/05/18 08:00 05/05/18 08:00 05/05/18 08:00 05/05/18 08:00 05/05/18 08:00 Intake and Output: 05/05/18 05/05/18 06:59 18:59 Intake Total 800 Balance 800 - Medications Medications: Current Medications Acetaminophen (Tylenol 325mg Tab) 650 mg PO Q6 PRN PRN Reason: Pain, Mild (1-3) Last Admin: 05/04/18 18:38 Dose: 650 mg Apixaban (Eliquis) 2.5 mg PO Q12 [facility] Last Admin: 05/05/18 10:16 Dose: 2.5 mg Famotidine (Pepcid) 20 mg PO DAILY [facility] Last Admin: 05/05/18 10:17 Dose: 20 mg Hydroxyurea (Hydrea) 500 mg PO BID [facility] Last Admin: 05/05/18 10:16 Dose: 500 mg Sodium Chloride (Sodium Chloride 0.9%) 1,000 mls @ 50 mls/hr IV .Q20H [facility] Last Admin: 05/05/18 11:55 Dose: 50 mls/hr Potassium Chloride (Klor-Con 10) 10 meq PO BRK [facility] Last Admin: 05/05/18 08:50 Dose: 10 meq Propranolol HCl (Inderal) 20 mg PO TID [facility] Last Admin: 05/05/18 10:15 Dose: 20 mg - Labs Labs: 05/05/18 06:07 05/05/18 06:07 PT 16.0 SECONDS (9.7-12.2) H 04/28/18 16:55 INR 1.5 04/28/18 16:55 APTT 51 SECONDS (21-34) H D 05/01/18 06:22 - Constitutional Appears: No Acute Distress, Chronically Ill - Head Exam Head Exam: NORMOCEPHALIC - Eye Exam Eye Exam: absent: Scleral icterus - Neck Exam Neck Exam: Normal Inspection - Respiratory Exam Respiratory Exam: Rales (bilat rales at bases) - Cardiovascular Exam Cardiovascular Exam: REGULAR RHYTHM. absent: Murmur - GI/Abdominal Exam GI & Abdominal Exam: Soft. absent: Tenderness, Mass, Organomegaly - Extremities Exam Extremities Exam: Pedal Edema - Back Exam Back Exam: absent: CVA tenderness (L), CVA tenderness (R), tenderness - Neurological Exam Neurological Exam: Alert, Awake, Oriented x3 - Psychiatric Exam Psychiatric exam: Normal Affect, Normal Mood - Skin Skin Exam: Normal Color Assessment and Plan (1) Hepatosplenomegaly Assessment & Plan: Pulmonary Hypertension Management D/W Dr Gale Portal HTN- on beta blockers. Varices. BP borderline Status: Acute (2) Myelofibrosis Assessment & Plan: Marked increase in leukocytosis. Ocean [employer]ologist aware and following Status: Acute (3) Pyelonephritis due to Escherichia coli Status: Acute (4) Thrombocytopenia Status: Acute (5) Anemia Assessment & Plan: Hgb dropping. Perhaps secondary to meds. No overt signs of GI or other bleeding. Pt being anticoagulated Check stool OB Status: Acute
--- NOTE | 2018-05-05 15:35 | CP.PCM.PN ---
Subjective - Date & Time of Evaluation Date of Evaluation: 05/05/18 Time of Evaluation: 14:15 - Subjective Subjective: clinically same Objective - Vital Signs/Intake and Output Vital Signs (last 24 hours): Temp Pulse Resp BP Pulse Ox 98.1 F 81 20 112/63 97 05/05/18 12:00 05/05/18 08:00 05/05/18 12:00 05/05/18 08:00 05/05/18 12:00 Intake and Output: 05/05/18 05/05/18 06:59 18:59 Intake Total 800 Balance 800 - Medications Medications: Current Medications Acetaminophen (Tylenol 325mg Tab) 650 mg PO Q6 PRN PRN Reason: Pain, Mild (1-3) Last Admin: 05/04/18 18:38 Dose: 650 mg Apixaban (Eliquis) 2.5 mg PO Q12 [facility] Last Admin: 05/05/18 10:16 Dose: 2.5 mg Famotidine (Pepcid) 20 mg PO DAILY [facility] Last Admin: 05/05/18 10:17 Dose: 20 mg Hydroxyurea (Hydrea) 500 mg PO BID [facility] Last Admin: 05/05/18 10:16 Dose: 500 mg Potassium Chloride (Klor-Con 10) 10 meq PO BRK [facility] Last Admin: 05/05/18 08:50 Dose: 10 meq Propranolol HCl (Inderal) 20 mg PO TID [facility] Last Admin: 05/05/18 14:28 Dose: Not Given - Labs Labs: 05/05/18 06:07 05/05/18 06:07 PT 16.0 SECONDS (9.7-12.2) H 04/28/18 16:55 INR 1.5 04/28/18 16:55 APTT 51 SECONDS (21-34) H D 05/01/18 06:22 - Constitutional Appears: Well - Head Exam Head Exam: ATRAUMATIC, NORMAL INSPECTION, NORMOCEPHALIC - Eye Exam Eye Exam: EOMI, Normal appearance, PERRL Pupil Exam: NORMAL ACCOMODATION, PERRL - ENT Exam ENT Exam: Mucous Membranes Moist, Normal Exam - Neck Exam Neck Exam: Full ROM, Normal Inspection. absent: Lymphadenopathy - Respiratory Exam Respiratory Exam: Decreased Breath Sounds - Cardiovascular Exam Cardiovascular Exam: REGULAR RHYTHM, +S1, +S2 - GI/Abdominal Exam GI & Abdominal Exam: Soft, Diminished Bowel Sounds - Rectal Exam Rectal Exam: Deferred
--- NOTE | 2018-05-05 16:14 | CP.PCM.PN ---
<DickinsonFabiola reynacarin E - Last Filed: 05/05/18 16:10> Subjective - Date & Time of Evaluation Date of Evaluation: 05/05/18 Time of Evaluation: 10:45 - Subjective Subjective: Cardiology progress note (Dr. Alex's service) Patient was seen and examined at bedside. Patient was resting comfortably in bed in no acute distress. Patient denies any cardiac symptoms such as chest pain , palpitations, SOB, dizziness, lightheadedness. Objective - Vital Signs/Intake and Output Vital Signs (last 24 hours): Temp Pulse Resp BP Pulse Ox 98.1 F 81 20 112/63 97 05/05/18 12:00 05/05/18 08:00 05/05/18 12:00 05/05/18 08:00 05/05/18 12:00 Intake and Output: 05/05/18 05/05/18 06:59 18:59 Intake Total 800 Balance 800 - Medications Medications: Current Medications Acetaminophen (Tylenol 325mg Tab) 650 mg PO Q6 PRN PRN Reason: Pain, Mild (1-3) Last Admin: 05/04/18 18:38 Dose: 650 mg Apixaban (Eliquis) 2.5 mg PO Q12 [facility] Last Admin: 05/05/18 10:16 Dose: 2.5 mg Famotidine (Pepcid) 20 mg PO DAILY [facility] Last Admin: 05/05/18 10:17 Dose: 20 mg Hydroxyurea (Hydrea) 500 mg PO BID [facility] Last Admin: 05/05/18 10:16 Dose: 500 mg Potassium Chloride (Klor-Con 10) 10 meq PO BRK [facility] Last Admin: 05/05/18 08:50 Dose: 10 meq Propranolol HCl (Inderal) 20 mg PO TID [facility] Last Admin: 05/05/18 14:28 Dose: Not Given - Labs Labs: 05/05/18 06:07 05/05/18 06:07 PT 16.0 SECONDS (9.7-12.2) H 04/28/18 16:55 INR 1.5 04/28/18 16:55 APTT 51 SECONDS (21-34) H D 05/01/18 06:22 - Constitutional Appears: Non-toxic, No Acute Distress - Head Exam Head Exam: ATRAUMATIC - Eye Exam Eye Exam: EOMI - ENT Exam ENT Exam: Mucous Membranes Moist - Respiratory Exam Respiratory Exam: Rales, NORMAL BREATHING PATTERN - Cardiovascular Exam Cardiovascular Exam: REGULAR RHYTHM, +S1, +S2 - GI/Abdominal Exam GI & Abdominal Exam: Soft, Normal Bowel Sounds. absent: Firm, Guarding, Rigid, Tenderness - Extremities Exam Extremities Exam: Pedal Edema - Neurological Exam Neurological Exam: Alert, Awake, Oriented x3 - Psychiatric Exam Psychiatric exam: Normal Affect - Skin Skin Exam: Normal Color Assessment and Plan (1) Atrial fibrillation, new onset Assessment & Plan: Patient is a 67 year old female with past medical history hypertension, myelofibrosis, chronic leukocytosis on treatment for myelofibrosis currently on treatment with hematology and oncology, Rae Jalloh, who was admitted from right flank pain and found to have a R Hydronephrosis and now s/p R ureteral stent. Cardiology consult was placed for new onset of atrial fibrillation with rapid ventricular response: Labs: - TSH: 0.53, WNL 1. Rule out PE, V/Q scan negative, D-Dimer is elevated (431), continuation with heparin drip - LE Venous doppler scan: Acute thrombosis of the right gastrocnemius with severe reduction of the venous return. No evidence of deep venous thrombosis in the left lower extremities 2. Rate controlled on Cardizem drip 125mg at 5mg/hr -> Cardizem discontinued. Currently cardizem 30mg PO QID (discontinued as patient is already on propranolol 20mg PO TID 3. V/Q scan is negative for PE, plans for possible YANI and cardioversion tomorrow 04/30/18 was cancelled due to conversion to NSR this am 4. YANI and cardioversion 04/30/18 was cancelled due to conversion to NSR 5. Eliquis 2.5mg PO BID Status: Acute (2) DVT (deep venous thrombosis) Assessment & Plan: D-Dimer is elevated (431) LE Venous doppler scan: Acute thrombosis of the right gastrocnemius with severe reduction of the venous return. No evidence of deep venous thrombosis in the left lower extremities Medication: * Heparin drip (Discontinued) * Eliquis 2.5mg PO BID Status: Acute (3) Myelofibrosis Assessment & Plan: Elevated WBC Hematoloy/Oncology, Dr. Mcbride on board Status: Acute (4) Elevated brain natriuretic peptide (BNP) level Assessment & Plan: BNP: 15,300, Trending down Chest X-ray (04/29/18): Right-sided PICC. Moderate pulmonary venous congestion. Cardiomegaly. Ectatic aorta. Echocardiogram (04/26/18): LV function is normal. EF (65-70%). Trace aortic regurgitation and moderate pulmonary hypertension Lasix 20mg PO BID; gentle diuresis in light of SOFIA: D/C due to worsening SOFIA Status: Acute (5) Hepatosplenomegaly Assessment & Plan: Abdominal/ Pelvis without contrast: . Prominent carrie hepatis with extensive upper abdominal varices and splenomegaly suspicious for pattern blood flow. No gross pattern of hepatic cirrhosis. Cryptogenic cirrhosis is a possibility. Clinically correlate further. As per GI, Dr. Méndez: it is not clear whether the splenomegaly and portal HTN are from thrombosi or perhaps from underlying cirrhosis. Will start on beta sanjuanita for variceal prophylaxis, and work up for causes of chronic liver disease. Medication for variceal ppx: * Propranolol 10mg PO BID---> 20mg TID Status: Acute (6) Hydronephrosis, right Assessment & Plan: Abdominal/ Pelvis without contrast: Right perinephric reaction is appreciated with mild to moderate right hydroureteronephrosis potentially on the basis of distal right ureteral stricture, lucent calculus or expelled calculus. No radiodense urolithiasis identified bilaterally including urinary bladder. Left kidney appears unremarkable. S/P ureteral stent (04/25/18) Status: Acute (7) Prophylactic measure Assessment & Plan: DVT: Eliquis 2.5mg PO BID GI: Pepcid 20mg PO daily Outpatient patient follow up with cardiology, Dr. Alex 4-6 weeks after discharge All plans and management discussed with Dr. Alex Status: Acute <Alber Alex - Last Filed: 05/06/18 06:13> Objective - Vital Signs/Intake and Output Vital Signs (last 24 hours): Temp Pulse Resp BP Pulse Ox 98.2 F 76 22 110/63 93 L 05/06/18 04:03 05/05/18 20:00 05/05/18 17:23 05/05/18 17:23 05/05/18 17:23 Intake and Output: 05/05/18 05/06/18 18:59 06:59 Intake Total 785 Output Total 122 Balance 663 - Medications Medications: Current Medications Acetaminophen (Tylenol 325mg Tab) 650 mg PO Q6 PRN PRN Reason: Pain, Mild (1-3) Last Admin: 05/06/18 04:03 Dose: 650 mg Apixaban (Eliquis) 2.5 mg PO Q12 [facility] Last Admin: 05/05/18 21:18 Dose: 2.5 mg Famotidine (Pepcid) 20 mg PO DAILY [facility] Last Admin: 05/05/18 10:17 Dose: 20 mg Fluconazole (Diflucan) 100 mg PO DAILY [facility] PRN Reason: Protocol Hydroxyurea (Hydrea) 500 mg PO BID [facility] Last Admin: 05/05/18 17:23 Dose: 500 mg Potassium Chloride (Klor-Con 10) 10 meq PO BRK [facility] Last Admin: 05/05/18 08:50 Dose: 10 meq Propranolol HCl (Inderal) 20 mg PO TID [facility] Last Admin: 05/05/18 17:23 Dose: 20 mg - Labs Labs: 05/05/18 21:35 05/05/18 06:07 PT 16.0 SECONDS (9.7-12.2) H 04/28/18 16:55 INR 1.5 04/28/18 16:55 APTT 51 SECONDS (21-34) H D 05/01/18 06:22 Assessment and Plan - Assessment and Plan (Free Text) Assessment: Patient seen and evaluated personally by mo Plan of care d/w the medical nurse and as documented
[2018-05-05 21:44] LABS: BASO # 1.1 K/uL (0.0-0.2); BASO % 1.3 % (0.0-2.0); EOS # 1.5 K/uL (0.0-0.7); EOS % 1.7 % (0.0-4.0); HEMOGLOBIN 7.5 g/dL (11.0-16.0); LYMPH # 4.8 K/uL (1.0-4.3); LYMPH % 5.3 % (20.0-40.0); MEAN CELL VOLUME 88.7 fL (81.0-99.0); MEAN CORPUSCULAR HEMOGLOBIN 27.3 pg (27.0-31.0); MEAN CORPUSCULAR HGB CONC 30.7 g/dL (33.0-37.0); MEAN PLATELET VOLUME 11.6 fL (7.2-11.7); NEUT # 74.1 K/uL (1.8-7.0); NEUT % 81.7 % (50.0-75.0); NRBC % 0.2 % (0.0-2.0); PLATELET COUNT 88 K/uL (130-400); RBC 2.74 Mil/uL (3.80-5.20); RED CELL DISTRIBUTION WIDTH 19.5 % (11.5-14.5)
[2018-05-05 21:47] LABS: WHITE BLOOD COUNT 90.6 K/uL (4.8-10.8)
[2018-05-05 23:14] LABS: LYMPHOCYTE 6 % (20-40); METAMYELOCYTE 8 % (0-0); NUCLEATED RED BLOOD CELL 2 % (0-0)
[2018-05-05 23:15] LABS: MYELOCYTE 11 % (0-0); NEUTROPHIL 53 % (50-75); TOTAL CELLS COUNTED 100
[2018-05-05 23:17] LABS: BANDS 13 % (0-2); EOSINOPHIL 3 % (0-4); MONOCYTE 6 % (0-10); PLATELET ESTIMATE DECREASED (NORMAL)
[2018-05-05 23:19] LABS: MICROCYTOSIS SLIGHT
[2018-05-05 23:20] LABS: OVALOCYTES SLIGHT; SPHEROCYTES SLIGHT
--- NOTE | 2018-05-06 00:02 | CP.PCM.PN ---
Subjective - Date & Time of Evaluation Date of Evaluation: 05/05/18 Time of Evaluation: 18:00 - Subjective Subjective: INFECTIOUS DISEASE PROGRESS NOTE JANY PATTERSON MD, FACP ICU #5 05/05/2018 CHART REVIEWED PT EXAMINED CASE DISCUSSED WITH DR EGAN ET AL CLINICALLY RESOLVING LOWER ABD/PELVIC DISCOMFORT, NO N,V,D,C AFEBRILE LUNGS STABLE COR REGULAR EXT NO SIGNS OF EMBOLIC PHENOMENON WBC'S OVER 100,000 URINE C/S SOME FUNGAL ELEMENTS DOUBT OVER INFECTION-NO SIGNS OF C DIFF STARTED PO DIFLUCAN SATURDAY PM AND 2ND DOSE ON SATURDAY 2ND TO RENAL FUNCTION ALSO NOW RESTARTED CHEMIO VIA HEME/ONCO OBSERVE CLOSELY JANY PATTERSON MD, FACP Objective - Vital Signs/Intake and Output Vital Signs (last 24 hours): Temp Pulse Resp BP Pulse Ox 98.4 F 79 22 110/63 93 L 05/05/18 21:35 05/05/18 17:23 05/05/18 17:23 05/05/18 17:23 05/05/18 17:23 Intake and Output: 05/05/18 05/06/18 18:59 06:59 Intake Total 785 Output Total 122 Balance 663 - Medications Medications: Current Medications Acetaminophen (Tylenol 325mg Tab) 650 mg PO Q6 PRN PRN Reason: Pain, Mild (1-3) Last Admin: 05/05/18 21:35 Dose: 650 mg Apixaban (Eliquis) 2.5 mg PO Q12 [facility] Last Admin: 05/05/18 21:18 Dose: 2.5 mg Famotidine (Pepcid) 20 mg PO DAILY [facility] Last Admin: 05/05/18 10:17 Dose: 20 mg Fluconazole (Diflucan) 100 mg PO DAILY [facility] PRN Reason: Protocol Hydroxyurea (Hydrea) 500 mg PO BID [facility] Last Admin: 05/05/18 17:23 Dose: 500 mg Potassium Chloride (Klor-Con 10) 10 meq PO BRK [facility] Last Admin: 05/05/18 08:50 Dose: 10 meq Propranolol HCl (Inderal) 20 mg PO TID [facility] Last Admin: 05/05/18 17:23 Dose: 20 mg - Labs Labs: 05/05/18 21:35 05/05/18 06:07 PT 16.0 SECONDS (9.7-12.2) H 04/28/18 16:55 INR 1.5 04/28/18 16:55 APTT 51 SECONDS (21-34) H D 05/01/18 06:22
[2018-05-06] MEDS: Potassium Chloride 10 mEq ER Tab PO SCH (09:39)
--- NOTE | 2018-05-06 10:04 | CT ---
Date of service: 05/06/2018 PROCEDURE: CT Abdomen and Pelvis without intravenous contrast HISTORY: Abdominal pain. Relevant medical history: Myelofibrosis. COMPARISON: 05/01/2018. CT abdomen and pelvis TECHNIQUE: Unenhanced study. Neither oral nor intravenous contrast administered. Radiation dose: Total exam DLP = 1076.34 mGy-cm. This CT exam was performed using one or more of the following dose reduction techniques: Automated exposure control, adjustment of the mA and/or kV according to patient size, and/or use of iterative reconstruction technique. FINDINGS: LOWER THORAX: Unremarkable. LIVER: Hepatomegaly. GALLBLADDER AND BILE DUCTS: Cholelithiasis without CT evidence of acute cholecystitis. PANCREAS: Unremarkable. No gross lesion or ductal dilatation. SPLEEN: Markedly enlarged spleen. There is now abnormal increased attenuation within the spleen medially and the overall findings suggest laceration or injury to the spleen. This new anatomic area of interest in the medial spleen on the coronal images measures 3.8 x 11 cm. In addition, there is upper abdominal and pelvic ascites which is new compared to the prior study with Hounsfield unit values as high as 40. ADRENALS: Unremarkable. No mass. KIDNEYS AND URETERS: Stable position of stent in the right kidney ureter and urinary bladder. VASCULATURE: Unremarkable. No aortic aneurysm. BOWEL: Unremarkable. No obstruction. No gross mural thickening. APPENDIX: Unremarkable. Normal appendix. PERITONEUM: New fluid in the abdomen and pelvis. Mean Hounsfield unit values in the pelvis for this fluid 33 highly suggestive of hemorrhage. LYMPH NODES: Unremarkable. No enlarged lymph nodes. BLADDER: Unremarkable. REPRODUCTIVE: Unremarkable. BONES: No acute fracture. OTHER FINDINGS: None. IMPRESSION: Findings suggestive of injury/trauma or acute hemorrhagic process emanating from to the spleen with new abdominal and pelvic ascites which is likely hemorrhagic. Additional benign and/or incidental findings described above. The study is otherwise unchanged. Critical results protocol: 1. A preliminary verbal report was provided to the nurse involved in the care and management of this patient at 09:44. 2. An additional follow-up verbal report provided to the industrial relations officer, Dr. Serna at 09:56. 3. The study was completed at 08:50.
--- NOTE | 2018-05-06 11:28 | CP.CCUPN ---
<Mani Melo - Last Filed: 05/06/18 13:43> CCU Subjective - Physician Review Subjective (Free Text): Critical care progress note: Pt seen and examined at bedside. Patient was complaining of some abdominal pain and CT abdomen showing acute hemorrhagic process emanating from the spleen. Will observe the patient closely in the ICU. 12 Point ROS performed and neg other than stated above. CCU Objective - Vital Signs / Intake & Output Vital Signs (Last 4 hours): Vital Signs Temp Pulse Pulse Ox 05/06/18 08:00 98 F 81 100 Intake and Output (Last 8hrs): Intake & Output 05/05/18 05/06/18 05/06/18 22:59 06:59 14:59 Intake Total 150 100 Output Total 350 Balance 150 -250 Intake: Oral 150 100 Output: Urine 350 Urine, Voided 350 Other: # Voids Urine, Voided 3 - Physical Exam Head: Positive for: Atraumatic, Normocephalic Extroacular Muscles: Positive for: EOMI Mouth: Positive for: Moist Mucous Membranes Respiratory/Chest: Positive for: Decreased Breath Sounds. Negative for: Respiratory Distress Cardiovascular: Positive for: Regular Rate and Rhythm, Normal S1, S2 Abdomen: Positive for: Tenderness (L sided ), Normal Bowel Sounds, Other ( Enlarged liver palpable). Negative for: Distention, Peritoneal Signs, Guarding Back: Negative for: CVA Tenderness Upper Extremity: Positive for: NORMAL PULSES, Capillary Refill < 2s. Negative for: Cyanosis, Edema Lower Extremity: Positive for: Edema (minimal bilateral lower extremity edema ) , NORMAL PULSES. Negative for: CALF TENDERNESS Neurological: Positive for: GCS=15, CN II-XII Intact Skin: Positive for: Warm, Dry, Normal Color Psychiatric: Positive for: Alert, Oriented x 3 - Medications Active Medications: Active Medications Generic Name Dose Route Start Last Admin Trade Name Freq PRN Reason Stop Dose Admin Acetaminophen 650 mg 04/26/18 17:00 05/06/18 04:03 Tylenol 325mg Tab PO 650 mg Q6 PRN Administration Pain, Mild (1-3) Apixaban 2.5 mg 05/02/18 10:00 05/06/18 09:39 Eliquis PO 2.5 mg Q12 NAN Administration Famotidine 20 mg 04/27/18 10:05/06/18 09:39 Pepcid PO 20 mg DAILY NAN Administration Fluconazole 100 mg 05/07/18 10:00 Diflucan PO DAILY [facility] Protocol Hydroxyurea 500 mg 05/04/18 18:00 05/06/18 09:39 Hydrea PO 500 mg BID NAN Administration Potassium Chloride 10 meq 04/28/18 18:15 05/06/18 09:39 Klor-Con 10 PO 10 meq BRK NAN Administration Propranolol HCl 20 mg 05/01/18 19:15 05/06/18 09:40 Inderal PO 20 mg TID NAN Administration - Patient Studies Lab Studies: Microbiology Studies 05/01/18 18:21 Blood Culture - Preliminary Blood-Venous NO GROWTH AFTER 4 DAYS 05/01/18 16:55 Blood Culture - Preliminary Blood-Venous NO GROWTH AFTER 4 DAYS Lab Studies 05/06/18 05/05/18 Range/Units 10:31 21:35 WBC 90.6 H* (4.8-10.8) K/uL RBC 2.74 L (3.80-5.20) Mil/uL Hgb 7.5 L (11.0-16.0) g/dL Hct 24.3 L (34.0-47.0) % MCV 88.7 D (81.0-99.0) fL MCH 27.3 (27.0-31.0) pg MCHC 30.7 L (33.0-37.0) g/dL RDW 19.5 H (11.5-14.5) % Plt Count 88 L D (130-400) K/uL MPV 11.6 (7.2-11.7) fL Neut % (Auto) 81.7 H (50.0-75.0) % Lymph % (Auto) 5.3 L (20.0-40.0) % [place] % (Auto) 10.0 (0.0-10.0) % Eos % (Auto) 1.7 (0.0-4.0) % Baso % (Auto) 1.3 (0.0-2.0) % Neut # (Auto) 74.1 H (1.8-7.0) K/uL Lymph # (Auto) 4.8 H (1.0-4.3) K/uL [place] # (Auto) 9.0 H (0.0-0.8) K/uL Eos # (Auto) 1.5 H (0.0-0.7) K/uL Baso # (Auto) 1.1 H (0.0-0.2) K/uL Neutrophils % (Manual) 53 (50-75) % Band Neutrophils % 13 H* (0-2) % Lymphocytes % (Manual) 6 L (20-40) % Monocytes % (Manual) 6 (0-10) % Eosinophils % (Manual) 3 (0-4) % Metamyelocytes % 8 H (0-0) % Myelocytes % 11 H (0-0) % Nucleated RBC % 2 H (0-0) % Platelet Estimate Decreased L (NORMAL) Microcytosis (manual) Slight Spherocytes Slight Ovalocytes Slight Blood Type A POSITIVE Blood Type Confirm A POSITIVE Antibody Screen Negative Laboratory Results - last 24 hr 05/05/18 05/06/18 21:35 10:31 WBC 90.6 H* RBC 2.74 L Hgb 7.5 L Hct 24.3 L MCV 88.7 D MCH 27.3 MCHC 30.7 L RDW 19.5 H Plt Count 88 L D MPV 11.6 Neut % (Auto) 81.7 H Lymph % (Auto) 5.3 L [place] % (Auto) 10.0 Eos % (Auto) 1.7 Baso % (Auto) 1.3 Neut # (Auto) 74.1 H Lymph # (Auto) 4.8 H [place] # (Auto) 9.0 H Eos # (Auto) 1.5 H Baso # (Auto) 1.1 H Neutrophils % (Manual) 53 Band Neutrophils % 13 H* Lymphocytes % (Manual) 6 L Monocytes % (Manual) 6 Eosinophils % (Manual) 3 Metamyelocytes % 8 H Myelocytes % 11 H Nucleated RBC % 2 H Platelet Estimate Decreased L Microcytosis (manual) Slight Spherocytes Slight Ovalocytes Slight Blood Type A POSITIVE Blood Type Confirm A POSITIVE Antibody Screen Negative Critical Care Progress Note - Nutrition Nutrition: Nutrition Category Date Time Status Heart Healthy Diet [DIET] Diets 04/30/18 Breakfast Active Assessment/Plan - Assessment and Plan (Free Text) Assessment: 67 year old female with history of arthritis, HTN, myelofibrosis with chronic leukocytosis who was admitted for right flank pain following failed outpatient treatment of pyelonephritis. CT revealed right hydroureteronephrosis with ureteral stricture, and she is s/p ureteral stent insertion by Dr. Irvin on 04/25/18. Patient developed Atrial fibrillation, currently on PO Cardizem. RLE DVT, on Eliquis. CT abdomen showing acute hemorrhagic process emanating from the spleen. Will observe the patient closely in the ICU. Neuro: - AAO x 3 Pulm: - Nasal cannula as tolerated - Maintain SPO2 > 92 % CV: - Currently hemodynamically stable - Maintain MAP > 65 - F/u Cardiology consult and recs - Cont Inderal GI: - GI ppx - CT abdomen showed acute hemorrhagic process emanating from the spleen - F/u GI consult and recs - Surgery consulted for recs Renal: - Monitor I and O - Replete electrolytes as needed - F/u urology consult and recs Heme: - Plan to transfuse 2 Units of PRBC - Hold eliquis - Plan to transfuse 2 FFPs - Monitor H/H - Hx of myelofibrosis - F/u heme/onc consult and recs - Cont Hydrea ID: - Afebrile and Wbc of 90k (hx of myelofibrosis) - F/u ID consult and recs - Cont Fluconazole Endo: - Maintain euglycemia Case and plan was reviewed and discussed with Dr Serna. <Enmanuel Serna S - Last Filed: 05/06/18 18:11> CCU Subjective - Physician Review Critical Care Time Spent (in minutes): 60 CCU Objective - Vital Signs / Intake & Output Vital Signs (Last 4 hours): Vital Signs Temp Pulse Resp BP Pulse Ox 05/06/18 18:01 97.4 F L 80 25 H 137/67 05/06/18 18:00 97.4 F L 82 26 H 96 05/06/18 17:59 81 27 H 137/67 97 05/06/18 17:56 97.4 F L 100 05/06/18 17:45 87 14 97 05/06/18 17:30 84 28 H 97 05/06/18 17:29 84 24 141/75 96 05/06/18 17:15 84 23 100 05/06/18 17:07 89 31 H 137/67 98 05/06/18 17:00 83 17 96 05/06/18 16:56 97.6 F 100 05/06/18 16:45 79 20 96 05/06/18 16:30 80 21 161/74 H 97 05/06/18 16:15 77 29 H 98 05/06/18 16:00 97.4 F L 81 8 L 97 05/06/18 15:56 97.4 F L 100 05/06/18 15:48 77 29 H 144/71 100 05/06/18 15:45 77 33 H 99 05/06/18 15:33 80 30 H 146/68 99 05/06/18 15:30 82 18 96 05/06/18 15:26 97.4 F L 100 05/06/18 15:18 79 22 149/73 97 05/06/18 15:15 97.6 F 79 32 H 98 05/06/18 15:03 79 31 H 147/76 99 05/06/18 15:00 78 16 96 05/06/18 14:56 97.9 F 98 05/06/18 14:48 80 16 153/78 H 93 L 05/06/18 14:45 77 15 99 05/06/18 14:41 98.6 F 96 05/06/18 14:33 77 13 142/78 96 05/06/18 14:30 76 11 L 98 05/06/18 14:26 98.1 F 97 05/06/18 14:21 78 22 150/73 96 05/06/18 14:18 81 24 145/76 96 05/06/18 14:15 82 25 H 92 L 05/06/18 14:11 79 97 Intake and Output (Last 8hrs): Intake & Output 05/06/18 05/06/18 05/06/18 06:59 14:59 22:59 Intake Total 100 390 325 Output Total 350 201 700 Balance -250 189 -375 Intake: Intake, IV Amount 50 50 Right PICC 50 50 Oral 100 60 Blood Product 280 275 Red Blood Cells Cpd As1 0 Lr Unit [id number] Output: Urine 350 200 700 Urine, Voided 350 200 700 Emesis 1 0 Other: # Voids Urine, Voided 3 # Bowel Movements 0 0 - Medications Active Medications: Active Medications Generic Name Dose Route Start Last Admin Trade Name Freq PRN Reason Stop Dose Admin Acetaminophen 650 mg 04/26/18 17:00 05/06/18 04:03 Tylenol 325mg Tab PO 650 mg Q6 PRN Administration Pain, Mild (1-3) Apixaban 2.5 mg 05/02/18 10:00 05/06/18 09:39 Eliquis PO 2.5 mg Q12 NAN Administration Famotidine 20 mg 04/27/18 10:00 05/06/18 09:39 Pepcid PO 20 mg DAILY NAN Administration Fluconazole 100 mg 05/07/18 10:00 Diflucan PO DAILY [facility] Protocol Hydroxyurea 500 mg 05/04/18 18:00 05/06/18 09:39 Hydrea PO 500 mg BID NAN Administration Ondansetron HCl 4 mg 05/06/18 12:00 05/06/18 12:25 Zofran Inj IVP 4 mg Q6H PRN Administration Nausea/Vomiting Potassium Chloride 10 meq 04/28/18 18:15 05/06/18 09:39 Klor-Con 10 PO 10 meq BRK NAN Administration Propranolol HCl 20 mg 05/01/18 19:15 05/06/18 14:10 Inderal PO Not Given TID NAN - Patient Studies Lab Studies: Microbiology Studies 05/01/18 16:55 Blood Culture - Final Blood-Venous NO GROWTH AFTER 5 DAYS Gram Stain - Final TEST NOT PERFORMED 05/01/18 18:21 Blood Culture - Preliminary Blood-Venous NO GROWTH AFTER 4 DAYS Lab Studies 05/06/18 05/06/18 05/06/18 Range/Units 12:09 11:29 11:29 WBC 91.0 H* (4.8-10.8) K/uL RBC 2.76 L (3.80-5.20) Mil/uL Hgb 7.5 L (11.0-16.0) g/dL Hct 25.0 L (34.0-47.0) % MCV 90.6 (81.0-99.0) fL MCH 27.1 (27.0-31.0) pg MCHC 29.9 L (33.0-37.0) g/dL RDW 19.8 H (11.5-14.5) % Plt Count 85 L (130-400) K/uL MPV 12.0 H (7.2-11.7) fL Neut % (Auto) 83.9 H (50.0-75.0) % Lymph % (Auto) 5.0 L (20.0-40.0) % [place] % (Auto) 8.7 (0.0-10.0) % Eos % (Auto) 1.4 (0.0-4.0) % Baso % (Auto) 1.0 (0.0-2.0) % Neut # (Auto) 76.3 H (1.8-7.0) K/uL Lymph # (Auto) 4.6 H (1.0-4.3) K/uL [place] # (Auto) 7.9 H (0.0-0.8) K/uL Eos # (Auto) 1.3 H (0.0-0.7) K/uL Baso # (Auto) 0.9 H (0.0-0.2) K/uL Neutrophils % (Manual) 69 (50-75) % Band Neutrophils % 9 H (0-2) % Lymphocytes % (Manual) 4 L (20-40) % Monocytes % (Manual) 7 (0-10) % Eosinophils % (Manual) 3 (0-4) % Metamyelocytes % 5 H (0-0) % Myelocytes % 3 H (0-0) % Nucleated RBC % (0-0) % Platelet Estimate Decreased L (NORMAL) Large Platelets Present Polychromasia Slight Hypochromasia (manual) Slight Anisocytosis (manual) Moderate Microcytosis (manual) Spherocytes Ovalocytes Slight PT 16.9 H (9.7-12.2) SECONDS INR 1.5 APTT 32 (21-34) SECONDS Sodium 137 (132-148) mmol/L Potassium 4.8 (3.6-5.2) mmol/L Chloride 109 H (98-107) mmol/L Carbon Dioxide 21 L (22-30) mmol/L Anion Gap 13 (10-20) BUN 58 H (7-17) mg/dL Creatinine 2.6 H (0.7-1.2) mg/dL Est GFR ( Amer) 22 Est GFR (Non-Af Amer) 18 Random Glucose 97 (65-105) mg/dL Calcium 6.8 L (8.6-10.4) mg/dl Phosphorus 6.8 H (2.5-4.5) mg/dL Magnesium 2.2 (1.6-2.3) mg/dL Total Bilirubin 0.5 (0.2-1.3) mg/dL AST 15 (14-36) U/L ALT 18 (9-52) U/L Alkaline Phosphatase 48 (38-126) U/L Total Protein 5.3 L (6.3-8.3) g/dL Albumin 2.4 L (3.5-5.0) g/dL Globulin 2.9 (2.2-3.9) gm/dL Albumin/Globulin Ratio 0.8 L (1.0-2.1) Blood Type Blood Type Confirm Antibody Screen 05/06/18 05/05/18 Range/Units 10:31 21:35 WBC 90.6 H* (4.8-10.8) K/uL RBC 2.74 L (3.80-5.20) Mil/uL Hgb 7.5 L (11.0-16.0) g/dL Hct 24.3 L (34.0-47.0) % MCV 88.7 D (81.0-99.0) fL MCH 27.3 (27.0-31.0) pg MCHC 30.7 L (33.0-37.0) g/dL RDW 19.5 H (11.5-14.5) % Plt Count 88 L D (130-400) K/uL MPV 11.6 (7.2-11.7) fL Neut % (Auto) 81.7 H (50.0-75.0) % Lymph % (Auto) 5.3 L (20.0-40.0) % [place] % (Auto) 10.0 (0.0-10.0) % Eos % (Auto) 1.7 (0.0-4.0) % Baso % (Auto) 1.3 (0.0-2.0) % Neut # (Auto) 74.1 H (1.8-7.0) K/uL Lymph # (Auto) 4.8 H (1.0-4.3) K/uL [place] # (Auto) 9.0 H (0.0-0.8) K/uL Eos # (Auto) 1.5 H (0.0-0.7) K/uL Baso # (Auto) 1.1 H (0.0-0.2) K/uL Neutrophils % (Manual) 53 (50-75) % Band Neutrophils % 13 H* (0-2) % Lymphocytes % (Manual) 6 L (20-40) % Monocytes % (Manual) 6 (0-10) % Eosinophils % (Manual) 3 (0-4) % Metamyelocytes % 8 H (0-0) % Myelocytes % 11 H (0-0) % Nucleated RBC % 2 H (0-0) % Platelet Estimate Decreased L (NORMAL) Large Platelets Polychromasia Hypochromasia (manual) Anisocytosis (manual) Microcytosis (manual) Slight Spherocytes Slight Ovalocytes Slight PT (9.7-12.2) SECONDS INR APTT (21-34) SECONDS Sodium (132-148) mmol/L Potassium (3.6-5.2) mmol/L Chloride (98-107) mmol/L Carbon Dioxide (22-30) mmol/L Anion Gap (10-20) BUN (7-17) mg/dL Creatinine (0.7-1.2) mg/dL Est GFR ( Amer) Est GFR (Non-Af Amer) Random Glucose (65-105) mg/dL Calcium (8.6-10.4) mg/dl Phosphorus (2.5-4.5) mg/dL Magnesium (1.6-2.3) mg/dL Total Bilirubin (0.2-1.3) mg/dL AST (14-36) U/L ALT (9-52) U/L Alkaline Phosphatase (38-126) U/L Total Protein (6.3-8.3) g/dL Albumin (3.5-5.0) g/dL Globulin (2.2-3.9) gm/dL Albumin/Globulin Ratio (1.0-2.1) Blood Type A POSITIVE Blood Type Confirm A POSITIVE Antibody Screen Negative Laboratory Results - last 24 hr 05/05/18 05/06/18 05/06/18 21:35 10:31 11:29 WBC 90.6 H* 91.0 H* RBC 2.74 L 2.76 L Hgb 7.5 L 7.5 L Hct 24.3 L 25.0 L MCV 88.7 D 90.6 MCH 27.3 27.1 MCHC 30.7 L 29.9 L RDW 19.5 H 19.8 H Plt Count 88 L D 85 L MPV 11.6 12.0 H Neut % (Auto) 81.7 H 83.9 H Lymph % (Auto) 5.3 L 5.0 L [place] % (Auto) 10.0 8.7 Eos % (Auto) 1.7 1.4 Baso % (Auto) 1.3 1.0 Neut # (Auto) 74.1 H 76.3 H Lymph # (Auto) 4.8 H 4.6 H [place] # (Auto) 9.0 H 7.9 H Eos # (Auto) 1.5 H 1.3 H Baso # (Auto) 1.1 H 0.9 H Neutrophils % (Manual) 53 69 Band Neutrophils % 13 H* 9 H Lymphocytes % (Manual) 6 L 4 L Monocytes % (Manual) 6 7 Eosinophils % (Manual) 3 3 Metamyelocytes % 8 H 5 H Myelocytes % 11 H 3 H Nucleated RBC % 2 H Platelet Estimate Decreased L Decreased L Large Platelets Present Polychromasia Slight Hypochromasia (manual) Slight Anisocytosis (manual) Moderate Microcytosis (manual) Slight Spherocytes Slight Ovalocytes Slight Slight PT INR APTT Sodium Potassium Chloride Carbon Dioxide Anion Gap BUN Creatinine Est GFR ( Amer) Est GFR (Non-Af Amer) Random Glucose Calcium Phosphorus Magnesium Total Bilirubin AST ALT Alkaline Phosphatase Total Protein Albumin Globulin Albumin/Globulin Ratio Blood Type A POSITIVE Blood Type Confirm A POSITIVE Antibody Screen Negative 05/06/18 05/06/18 11:29 12:09 WBC RBC Hgb Hct MCV MCH MCHC RDW Plt Count MPV Neut % (Auto) Lymph % (Auto) [place] % (Auto) Eos % (Auto) Baso % (Auto) Neut # (Auto) Lymph # (Auto) [place] # (Auto) Eos # (Auto) Baso # (Auto) Neutrophils % (Manual) Band Neutrophils % Lymphocytes % (Manual) Monocytes % (Manual) Eosinophils % (Manual) Metamyelocytes % Myelocytes % Nucleated RBC % Platelet Estimate Large Platelets Polychromasia Hypochromasia (manual) Anisocytosis (manual) Microcytosis (manual) Spherocytes Ovalocytes PT 16.9 H INR 1.5 APTT 32 Sodium 137 Potassium 4.8 Chloride 109 H Carbon Dioxide 21 L Anion Gap 13 BUN 58 H Creatinine 2.6 H Est GFR ( Amer) 22 Est GFR (Non-Af Amer) 18 Random Glucose 97 Calcium 6.8 L Phosphorus 6.8 H Magnesium 2.2 Total Bilirubin 0.5 AST 15 ALT 18 Alkaline Phosphatase 48 Total Protein 5.3 L Albumin 2.4 L Globulin 2.9 Albumin/Globulin Ratio 0.8 L Blood Type Blood Type Confirm Antibody Screen Critical Care Progress Note - Nutrition Nutrition: Nutrition Category Date Time Status Heart Healthy Diet [DIET] Diets 04/30/18 Breakfast Active Attending/Attestation - Attestation I have personally seen and examined this patient.: Yes I have fully participated in the care of the patient.: Yes I have reviewed all pertinent clinical information: Yes Notes (Text): 05/06/18 18:09 patient seen and examined in the intensive care unit. Patient was complaining of some abdominal pain and CT abdomen showing acute hemorrhagic process emanating from the spleen. status post embolization of splenic artery by IR. Transfusions FFP and packed RBCs Bone marrow biopsy by hematology tomorrow Continue to monitor in ICU Anticoagulation on hold
[2018-05-06 11:37] LABS: BASO # 0.9 K/uL (0.0-0.2); EOS # 1.3 K/uL (0.0-0.7); EOS % 1.4 % (0.0-4.0); HEMOGLOBIN 7.5 g/dL (11.0-16.0); LYMPH # 4.6 K/uL (1.0-4.3); MEAN CELL VOLUME 90.6 fL (81.0-99.0); MEAN CORPUSCULAR HEMOGLOBIN 27.1 pg (27.0-31.0); MEAN CORPUSCULAR HGB CONC 29.9 g/dL (33.0-37.0); MONO # 7.9 K/uL (0.0-0.8); MONO % 8.7 % (0.0-10.0); NEUT # 76.3 K/uL (1.8-7.0); NEUT % 83.9 % (50.0-75.0); NRBC % 0.2 % (0.0-2.0); PLATELET COUNT 85 K/uL (130-400); RBC 2.76 Mil/uL (3.80-5.20); RED CELL DISTRIBUTION WIDTH 19.8 % (11.5-14.5)
[2018-05-06 11:50] LABS: ALB/GLOB RATIO 0.8 (1.0-2.1); ALBUMIN 2.4 g/dL (3.5-5.0); CALCIUM 6.8 mg/dl (8.6-10.4)
[2018-05-06 12:26] LABS: INR 1.5; PROTHROMBIN TIME 16.9 SECONDS (9.7-12.2)
[2018-05-06 13:09] LABS: BANDS 9 % (0-2); EOSINOPHIL 3 % (0-4); LYMPHOCYTE 4 % (20-40); METAMYELOCYTE 5 % (0-0); MONOCYTE 7 % (0-10); MYELOCYTE 3 % (0-0); NEUTROPHIL 69 % (50-75); TOTAL CELLS COUNTED 100
[2018-05-06 13:10] LABS: ANISOCYTOSIS MODERATE; HYPOCHROMIC SLIGHT; PLATELET ESTIMATE DECREASED (NORMAL); POLYCHROMIC SLIGHT
[2018-05-06 13:11] LABS: LARGE PLATELETS PRESENT; OVALOCYTES SLIGHT
[2018-05-06] MEDS ORDERED: Iodixanol 320 MG/ML 200 ML BOTTLE IV ONE (13:14)
[2018-05-06] MEDS ORDERED: Lidocaine Hydrochloride 5 ML INJ ONE ×2 (13:19→13:20)
--- NOTE | 2018-05-06 14:14 | PCM.SURG1 ---
Surgeon's Initial Post Op Note - Surgeon's Notes Surgeon: Richmond Horne MD Utility Specialist: NONE Type of Anesthesia: Local Pre-Operative Diagnosis: Splenic bleed Operative Findings: ANgiogram showed no active bleed from spleen. The findings were discussed with patient and her family along with the intensivisit. The spleen was then embolized after all parties were in agreement. Embozene particles 700-900 microns were used until stasis achieved. Post-Operative Diagnosis: Splenic bleed Operation Performed: SPlenic artery embolization Specimen/Specimens Removed: none Estimated Blood Loss: EBL {In ML}: 5 Blood Products Given: N/A Drains Used: No Drains Post-Op Condition: Fair Date of Surgery/Procedure: 05/06/18 Time of Surgery/Procedure: 14:05
--- NOTE | 2018-05-06 15:42 | CP.PCM.PN ---
<Kerir Smith E - Last Filed: 05/06/18 15:38> Subjective - Date & Time of Evaluation Date of Evaluation: 05/06/18 Time of Evaluation: 10:10 - Subjective Subjective: Cardiology progress note (Dr. Alex's service) Patient was seen and examined at bedside. Patient was resting comfortably in bed in no acute distress. Patient denies any cardiac symptoms such as chest pain , palpitations, SOB, dizziness, lightheadedness. However, patient does admit to LUQ abdominal pain. Objective - Vital Signs/Intake and Output Vital Signs (last 24 hours): Temp Pulse Resp BP Pulse Ox 97.4 F L 78 22 150/73 100 05/06/18 15:26 05/06/18 14:21 05/06/18 14:21 05/06/18 14:21 05/06/18 15:26 Intake and Output: 05/06/18 05/06/18 06:59 18:59 Intake Total 100 280 Output Total 350 201 Balance -250 79 - Medications Medications: Current Medications Acetaminophen (Tylenol 325mg Tab) 650 mg PO Q6 PRN PRN Reason: Pain, Mild (1-3) Last Admin: 05/06/18 04:03 Dose: 650 mg Apixaban (Eliquis) 2.5 mg PO Q12 [facility] Last Admin: 05/06/18 09:39 Dose: 2.5 mg Famotidine (Pepcid) 20 mg PO DAILY [facility] Last Admin: 05/06/18 09:39 Dose: 20 mg Fluconazole (Diflucan) 100 mg PO DAILY [facility] PRN Reason: Protocol Hydroxyurea (Hydrea) 500 mg PO BID [facility] Last Admin: 05/06/18 09:39 Dose: 500 mg Ondansetron HCl (Zofran Inj) 4 mg IVP Q6H PRN PRN Reason: Nausea/Vomiting Last Admin: 05/06/18 12:25 Dose: 4 mg Potassium Chloride (Klor-Con 10) 10 meq PO BRK [facility] Last Admin: 05/06/18 09:39 Dose: 10 meq Propranolol HCl (Inderal) 20 mg PO TID [facility] Last Admin: 05/06/18 09:40 Dose: 20 mg - Labs Labs: 05/06/18 11:29 05/06/18 11:29 PT 16.9 SECONDS (9.7-12.2) H 05/06/18 12:09 INR 1.5 05/06/18 12:09 APTT 32 SECONDS (21-34) 05/06/18 12:09 - Constitutional Appears: Non-toxic - Head Exam Head Exam: ATRAUMATIC - Eye Exam Eye Exam: EOMI - Respiratory Exam Respiratory Exam: NORMAL BREATHING PATTERN. absent: Rales, Rhonchi, Wheezes - Cardiovascular Exam Cardiovascular Exam: REGULAR RHYTHM, +S1, +S2 - GI/Abdominal Exam GI & Abdominal Exam: Tenderness, Normal Bowel Sounds Additional comments: LUQ discomfort on palpation - Extremities Exam Additional comments: +1 B/L pitting edema - Psychiatric Exam Psychiatric exam: Anxious - Skin Skin Exam: Normal Color Assessment and Plan (1) Atrial fibrillation, new onset Assessment & Plan: Patient is a 67 year old female with past medical history hypertension, myelofibrosis, chronic leukocytosis on treatment for myelofibrosis currently on treatment with hematology and oncology, Rae Jalloh, who was admitted from right flank pain and found to have a R Hydronephrosis and now s/p R ureteral stent. Cardiology consult was placed for new onset of atrial fibrillation with rapid ventricular response: Labs: - TSH: 0.53, WNL 1. Rule out PE, V/Q scan negative, D-Dimer is elevated (431), continuation with heparin drip - LE Venous doppler scan: Acute thrombosis of the right gastrocnemius with severe reduction of the venous return. No evidence of deep venous thrombosis in the left lower extremities 2. Rate controlled on Cardizem drip 125mg at 5mg/hr -> Cardizem discontinued. Currently cardizem 30mg PO QID (discontinued as patient is already on propranolol 20mg PO TID 3. V/Q scan is negative for PE, plans for possible YANI and cardioversion tomorrow 04/30/18 was cancelled due to conversion to NSR this am 4. YANI and cardioversion 04/30/18 was cancelled due to conversion to NSR 5. Eliquis 2.5mg PO BID, stopped due to possible splenic bleed on abdominal CT ( Findings suggestive of injury/trauma or acute hemorrhagic process emanating from to the spleen with new abdominal and pelvic ascites which is likely hemorrhagic.) Status: Acute (2) Splenic hemorrhage Assessment & Plan: Abdomen/Pelvis CT: Findings suggestive of injury/trauma or acute hemorrhagic process emanating from to the spleen with new abdominal and pelvic ascites which is likely hemorrhagic. IR consult, Dr. Horne on board * Angiogram showed no active bleed from spleen. Splenic artery embolization done Anemia possibly secondary to splenic hemorrhage: * 7.5/25.0 * Transfusion as needed Status: Acute (3) DVT (deep venous thrombosis) Assessment & Plan: D-Dimer is elevated (431) LE Venous doppler scan: Acute thrombosis of the right gastrocnemius with severe reduction of the venous return. No evidence of deep venous thrombosis in the left lower extremities Medication: * Heparin drip (Discontinued) * Eliquis 2.5mg PO BID (discontinued due to abdominal CT findings suggestive of injury/trauma or acute hemorrhagic process emanating from to the spleen with new abdominal and pelvic ascites which is likely hemorrhagic.) Status: Acute (4) Myelofibrosis Assessment & Plan: Elevated WBC Hematoloy/Oncology, Dr. Mcbride on board Status: Acute (5) Hepatosplenomegaly Assessment & Plan: Abdominal/ Pelvis without contrast: . Prominent carrie hepatis with extensive upper abdominal varices and splenomegaly suspicious for pattern blood flow. No gross pattern of hepatic cirrhosis. Cryptogenic cirrhosis is a possibility. Clinically correlate further. As per GI, Dr. Méndez: it is not clear whether the splenomegaly and portal HTN are from thrombosi or perhaps from underlying cirrhosis. Will start on beta sanjuanita for variceal prophylaxis, and work up for causes of chronic liver disease. Medication for variceal ppx: * Propranolol 10mg PO BID---> 20mg TID Status: Acute (6) Elevated brain natriuretic peptide (BNP) level Assessment & Plan: BNP: 15,300, Trending down Chest X-ray (04/29/18): Right-sided PICC. Moderate pulmonary venous congestion. Cardiomegaly. Ectatic aorta. Echocardiogram (04/26/18): LV function is normal. EF (65-70%). Trace aortic regurgitation and moderate pulmonary hypertension Lasix 20mg PO BID; gentle diuresis in light of SOFIA: D/C due to worsening SOFIA Status: Acute (7) Hydronephrosis, right Assessment & Plan: Abdominal/ Pelvis without contrast: Right perinephric reaction is appreciated with mild to moderate right hydroureteronephrosis potentially on the basis of distal right ureteral stricture, lucent calculus or expelled calculus. No radiodense urolithiasis identified bilaterally including urinary bladder. Left kidney appears unremarkable. S/P ureteral stent (04/25/18) Status: Acute (8) Prophylactic measure Assessment & Plan: DVT: Eliquis 2.5mg PO BID, consideration to be held due to anemia and splenic hemorrhage GI: Pepcid 20mg PO daily All plans and management discussed with Dr. Alex Status: Acute <Alber Alex - Last Filed: 05/06/18 23:07> Objective - Vital Signs/Intake and Output Vital Signs (last 24 hours): Temp Pulse Resp BP Pulse Ox 98.2 F 71 16 140/64 96 05/06/18 22:57 05/06/18 22:57 05/06/18 22:57 05/06/18 22:57 05/06/18 22:22 Intake and Output: 05/06/18 05/07/18 18:59 06:59 Intake Total 840 1200 Output Total 1101 400 Balance -261 800 - Medications Medications: Current Medications Acetaminophen (Tylenol 325mg Tab) 650 mg PO Q6 PRN PRN Reason: Pain, Mild (1-3) Last Admin: 05/06/18 04:03 Dose: 650 mg Apixaban (Eliquis) 2.5 mg PO Q12 [facility] Last Admin: 05/06/18 22:01 Dose: Not Given Famotidine (Pepcid) 20 mg PO DAILY [facility] Last Admin: 05/06/18 09:39 Dose: 20 mg Fluconazole (Diflucan) 100 mg PO DAILY [facility] PRN Reason: Protocol Hydroxyurea (Hydrea) 500 mg PO BID [facility] Last Admin: 05/06/18 18:40 Dose: 500 mg Sodium Chloride (Sodium Chloride 0.9%) 1,000 mls @ 250 mls/hr IV .Q4H ONE Stop: 05/07/18 00:22 Last Admin: 05/06/18 20:36 Dose: 250 mls/hr Ondansetron HCl (Zofran Inj) 4 mg IVP Q6H PRN PRN Reason: Nausea/Vomiting Last Admin: 05/06/18 18:43 Dose: 4 mg Potassium Chloride (Klor-Con 10) 10 meq PO BRK [facility] Last Admin: 05/06/18 09:39 Dose: 10 meq Propranolol HCl (Inderal) 20 mg PO TID [facility] Last Admin: 05/06/18 18:40 Dose: 20 mg - Labs Labs: 05/06/18 11:29 05/06/18 11:29 PT 16.9 SECONDS (9.7-12.2) H 05/06/18 12:09 INR 1.5 05/06/18 12:09 APTT 32 SECONDS (21-34) 05/06/18 12:09 Assessment and Plan - Assessment and Plan (Free Text) Assessment: Patient seen and evaluated personally by wa Plan of care d/w the medical management trainer and as documented
--- NOTE | 2018-05-06 17:13 | CP.PCM.PN ---
Subjective - Date & Time of Evaluation Date of Evaluation: 05/06/18 Time of Evaluation: 13:30 - Subjective Subjective: clinically same Objective - Vital Signs/Intake and Output Vital Signs (last 24 hours): Temp Pulse Resp BP Pulse Ox 97.4 F L 80 21 161/74 H 97 05/06/18 16:00 05/06/18 16:30 05/06/18 16:30 05/06/18 16:30 05/06/18 16:30 Intake and Output: 05/06/18 05/06/18 06:59 18:59 Intake Total 100 595 Output Total 350 651 Balance -250 -56 - Medications Medications: Current Medications Acetaminophen (Tylenol 325mg Tab) 650 mg PO Q6 PRN PRN Reason: Pain, Mild (1-3) Last Admin: 05/06/18 04:03 Dose: 650 mg Apixaban (Eliquis) 2.5 mg PO Q12 [facility] Last Admin: 05/06/18 09:39 Dose: 2.5 mg Famotidine (Pepcid) 20 mg PO DAILY [facility] Last Admin: 05/06/18 09:39 Dose: 20 mg Fluconazole (Diflucan) 100 mg PO DAILY [facility] PRN Reason: Protocol Hydroxyurea (Hydrea) 500 mg PO BID [facility] Last Admin: 05/06/18 09:39 Dose: 500 mg Ondansetron HCl (Zofran Inj) 4 mg IVP Q6H PRN PRN Reason: Nausea/Vomiting Last Admin: 05/06/18 12:25 Dose: 4 mg Potassium Chloride (Klor-Con 10) 10 meq PO BRK [facility] Last Admin: 05/06/18 09:39 Dose: 10 meq Propranolol HCl (Inderal) 20 mg PO TID [facility] Last Admin: 05/06/18 14:10 Dose: Not Given - Labs Labs: 05/06/18 11:29 05/06/18 11:29 PT 16.9 SECONDS (9.7-12.2) H 05/06/18 12:09 INR 1.5 05/06/18 12:09 APTT 32 SECONDS (21-34) 05/06/18 12:09 - Constitutional Appears: Well - Head Exam Head Exam: ATRAUMATIC, NORMAL INSPECTION, NORMOCEPHALIC - Eye Exam Eye Exam: EOMI, Normal appearance, PERRL Pupil Exam: NORMAL ACCOMODATION, PERRL - ENT Exam ENT Exam: Mucous Membranes Moist, Normal Exam - Neck Exam Neck Exam: Full ROM, Normal Inspection. absent: Lymphadenopathy - Respiratory Exam Respiratory Exam: Decreased Breath Sounds - Cardiovascular Exam Cardiovascular Exam: REGULAR RHYTHM, +S1, +S2 - GI/Abdominal Exam GI & Abdominal Exam: Soft, Diminished Bowel Sounds - Rectal Exam Rectal Exam: Deferred
--- NOTE | 2018-05-06 18:49 | CP.PCM.PN ---
Subjective - Date & Time of Evaluation Date of Evaluation: 05/06/18 Time of Evaluation: 18:41 - Subjective Subjective: INFECTIOUS DISEASE ICU #5 PROGRESS NOTES JANY PATTERSON MD, FACP 05/06/2018 SANDOVAL REVIEWED PT EXAMINED CASE DISCUSSED REVIEWED WITH FAMILY, RN'S AND MOLECULAR GENETIC PATHOLOGIST DR BRANDON WITH EMBOLIZATION OF SPLENIC BED THIS PT ONCE STABLE WILL NEED TO BE TREATED LIKE A FUNCTIONAL SPENICECTOMIZED PATIENT. ESPECIALLY WITH GRAM + PREVENTION OF BACTEREMIA. SHE WILL NEED THE NECESSARY VACCINATIONS FOR STREP PNEUMONIA( ALL 3 THROUGH TIME AND HEMOPHILUS INFLUENZA VACCINE AND FINALLY THE MENINGOCOCCUS B VACCINATION, PLUS THE INFLUENZA VACCINE) WE DISCUSSED BEING AWARE OF GRAM + BACTEREMIA AND HOME TREATMENT UNTIL SHE GETS TO A HOSPITAL. WILL REVIEW AND GIVE THE FAMILY THE NECESSARY HOME INFORMATION SHE WILL NEED= THE FAMILY, JOSIE AND HER BROTHER ARE PRESENT. Assessment and Plan (1) Atrial fibrillation, new onset Assessment & Plan: Patient is a 67 year old female with past medical history hypertension, myelofibrosis, chronic leukocytosis on treatment for myelofibrosis currently on treatment with hematology and oncology, Rae Jalloh, who was admitted from right flank pain and found to have a R Hydronephrosis and now s/p R ureteral stent. Cardiology consult was placed for new onset of atrial fibrillation with rapid ventricular response: Labs: - TSH: 0.53, WNL 1. Rule out PE, V/Q scan negative, D-Dimer is elevated (431), continuation with heparin drip - LE Venous doppler scan: Acute thrombosis of the right gastrocnemius with severe reduction of the venous return. No evidence of deep venous thrombosis in the left lower extremities 2. Rate controlled on Cardizem drip 125mg at 5mg/hr -> Cardizem discontinued. Currently cardizem 30mg PO QID (discontinued as patient is already on propranolol 20mg PO TID 3. V/Q scan is negative for PE, plans for possible YANI and cardioversion tomorrow 04/30/18 was cancelled due to conversion to NSR janie am 4. YANI and cardioversion 04/30/18 was cancelled due to conversion to NSR 5. Eliquis 2.5mg PO BID, stopped due to possible splenic bleed on abdominal CT ( Findings suggestive of injury/trauma or acute hemorrhagic process emanating from to the spleen with new abdominal and pelvic ascites which is likely hemorrhagic.) Status: Acute (2) Splenic hemorrhage Assessment & Plan: Abdomen/Pelvis CT: Findings suggestive of injury/trauma or acute hemorrhagic process emanating from to the spleen with new abdominal and pelvic ascites which is likely hemorrhagic. IR consult, Dr. Horne on board * Angiogram showed no active bleed from spleen. Splenic artery embolization done Anemia possibly secondary to splenic hemorrhage: * 7.5/25.0 * Transfusion as needed Status: Acute (3) DVT (deep venous thrombosis) Assessment & Plan: D-Dimer is elevated (431) LE Venous doppler scan: Acute thrombosis of the right gastrocnemius with severe reduction of the venous return. No evidence of deep venous thrombosis in the left lower extremities Medication: * Heparin drip (Discontinued) * Eliquis 2.5mg PO BID (discontinued due to abdominal CT findings suggestive of injury/trauma or acute hemorrhagic process emanating from to the spleen with new abdominal and pelvic ascites which is likely hemorrhagic.) Status: Acute (4) Myelofibrosis Assessment & Plan: Elevated WBC Hematoloy/Oncology, Dr. Mcbride on board Status: Acute (5) Hepatosplenomegaly Assessment & Plan: Abdominal/ Pelvis without contrast: . Prominent carrie hepatis with extensive upper abdominal varices and splenomegaly suspicious for pattern blood flow. No gross pattern of hepatic cirrhosis. Cryptogenic cirrhosis is a possibility. Clinically correlate further. As per GI, Dr. Méndez: it is not clear whether the splenomegaly and portal HTN are from thrombosi or perhaps from underlying cirrhosis. Will start on beta sanjuanita for variceal prophylaxis, and work up for causes of chronic liver disease. Medication for variceal ppx: * Propranolol 10mg PO BID---> 20mg TID Status: Acute (6) Elevated brain natriuretic peptide (BNP) level Assessment & Plan: BNP: 15,300, Trending down Chest X-ray (04/29/18): Right-sided PICC. Moderate pulmonary venous congestion. Cardiomegaly. Ectatic aorta. Echocardiogram (04/26/18): LV function is normal. EF (65-70%). Trace aortic regurgitation and moderate pulmonary hypertension Lasix 20mg PO BID; gentle diuresis in light of SOFIA: D/C due to worsening SOFIA Status: Acute (7) Hydronephrosis, right Assessment & Plan: Abdominal/ Pelvis without contrast: Right perinephric reaction is appreciated with mild to moderate right hydroureteronephrosis potentially on the basis of distal right ureteral stricture, lucent calculus or expelled calculus. No radiodense urolithiasis identified bilaterally including urinary bladder. Left kidney appears unremarkable. S/P ureteral stent (04/25/18) Status: Acute (8) Prophylactic measure Assessment & Plan: DVT: Eliquis 2.5mg PO BID, consideration to be held due to anemia and splenic hemorrhage GI: Pepcid 20mg PO daily JANY PATTERSON MD, FACP INFECTIOUS DISEASE SPECIALIST. Objective - Vital Signs/Intake and Output Vital Signs (last 24 hours): Temp Pulse Resp BP Pulse Ox 98.1 F 89 23 137/67 100 05/06/18 18:31 05/06/18 18:31 05/06/18 18:31 05/06/18 18:31 05/06/18 18:00 Intake and Output: 05/06/18 05/06/18 06:59 18:59 Intake Total 100 715 Output Total 350 901 Balance -250 -186 - Medications Medications: Current Medications Acetaminophen (Tylenol 325mg Tab) 650 mg PO Q6 PRN PRN Reason: Pain, Mild (1-3) Last Admin: 05/06/18 04:03 Dose: 650 mg Apixaban (Eliquis) 2.5 mg PO Q12 [facility] Last Admin: 05/06/18 09:39 Dose: 2.5 mg Famotidine (Pepcid) 20 mg PO DAILY [facility] Last Admin: 05/06/18 09:39 Dose: 20 mg Fluconazole (Diflucan) 100 mg PO DAILY [facility] PRN Reason: Protocol Hydroxyurea (Hydrea) 500 mg PO BID [facility] Last Admin: 05/06/18 18:40 Dose: 500 mg Ondansetron HCl (Zofran Inj) 4 mg IVP Q6H PRN PRN Reason: Nausea/Vomiting Last Admin: 05/06/18 12:25 Dose: 4 mg Potassium Chloride (Klor-Con 10) 10 meq PO BRK [facility] Last Admin: 05/06/18 09:39 Dose: 10 meq Propranolol HCl (Inderal) 20 mg PO TID [facility] Last Admin: 05/06/18 18:40 Dose: 20 mg - Labs Labs: 05/06/18 11:29 05/06/18 11:29 PT 16.9 SECONDS (9.7-12.2) H 05/06/18 12:09 INR 1.5 05/06/18 12:09 APTT 32 SECONDS (21-34) 05/06/18 12:09
[2018-05-06] MEDS ORDERED: Sodium Chloride 0.9% 1,000 ML IV ONE (20:23)
[2018-05-07 06:40] LABS: BASO # 0.7 K/uL (0.0-0.2); BASO % 0.9 % (0.0-2.0); EOS % 1.4 % (0.0-4.0); HEMOGLOBIN 9.1 g/dL (11.0-16.0); LYMPH # 3.5 K/uL (1.0-4.3); LYMPH % 4.7 % (20.0-40.0); MEAN CELL VOLUME 88.4 fL (81.0-99.0); MEAN CORPUSCULAR HEMOGLOBIN 27.6 pg (27.0-31.0); MEAN CORPUSCULAR HGB CONC 31.2 g/dL (33.0-37.0); MEAN PLATELET VOLUME 12.8 fL (7.2-11.7); MONO # 7.1 K/uL (0.0-0.8); MONO % 9.5 % (0.0-10.0); NEUT # 62.5 K/uL (1.8-7.0); NEUT % 83.5 % (50.0-75.0); NRBC % 1.6 % (0.0-2.0); PLATELET COUNT 80 K/uL (130-400); RBC 3.28 Mil/uL (3.80-5.20); RED CELL DISTRIBUTION WIDTH 17.7 % (11.5-14.5)
[2018-05-07 06:45] LABS: WHITE BLOOD COUNT 74.8 K/uL (4.8-10.8)
[2018-05-07 07:02] LABS: ALB/GLOB RATIO 0.9 (1.0-2.1); ALBUMIN 2.7 g/dL (3.5-5.0); CALCIUM 7.1 mg/dl (8.6-10.4)
[2018-05-07] MEDS: Potassium Chloride 10 mEq ER Tab PO SCH (08:31)
[2018-05-07 08:49] LABS: ANISOCYTOSIS SLIGHT; BANDS 9 % (0-2); LYMPHOCYTE 3 % (20-40); METAMYELOCYTE 4 % (0-0); MONOCYTE 14 % (0-10); MYELOCYTE 3 % (0-0); NEUTROPHIL 67 % (50-75); PLATELET ESTIMATE DECREASED (NORMAL); TOTAL CELLS COUNTED 100
[2018-05-07 08:50] LABS: HYPOCHROMIC SLIGHT; OVALOCYTES SLIGHT; POLYCHROMIC SLIGHT; TEARDROP CELLS SLIGHT
[2018-05-07] MEDS: Enoxaparin 30 mg Syringe SC SCH (09:26)
--- NOTE | 2018-05-07 12:28 | CP.CCUPN ---
<Sydni Arellano - Last Filed: 05/07/18 15:12> CCU Subjective - Physician Review Subjective (Free Text): ICU Progress note Patient seen and examined at bedside. Patient states that she no longer has left lower quadrant pain, however patient complains of persistent nausea. She currently denies chest pain, shortness of breath, headache, dizziness, vomiting , flank pain, leg pain. She offers no complaints today. She denies dysuria, urinary urgency or frequency. Daughter present at bedside. 05/07/18 15:03 CCU Objective - Vital Signs / Intake & Output Vital Signs (Last 4 hours): Vital Signs Pulse Resp BP Pulse Ox 05/07/18 11:15 72 26 H 96 05/07/18 11:00 63 21 149/68 97 05/07/18 10:45 63 22 98 05/07/18 10:00 69 16 146/69 99 05/07/18 09:45 66 22 96 05/07/18 09:30 77 17 97 05/07/18 09:15 69 25 H 98 05/07/18 09:00 72 14 133/66 94 L 05/07/18 08:45 61 24 100 05/07/18 08:30 60 22 100 Intake and Output (Last 8hrs): Intake & Output 05/06/18 05/07/18 05/07/18 22:59 06:59 14:59 Intake Total 1650 1220 100 Output Total 1300 500 400 Balance 350 720 -300 Weight 180 lb 12.465 oz Intake: Intake, IV Amount 550 500 Right PICC 550 500 Oral 0 50 100 Blood Product 1050 650 Red Blood Cells Cpd As1 325 Lr Unit [id number] Red Blood Cells Cpd As1 0 325 Lr Unit [id number] Other 50 20 Red Blood Cells Cpd As1 50 Lr Unit [id number] Red Blood Cells Cpd As1 20 Lr Unit [id number] Output: Urine 1100 500 400 Urine, Voided 1100 500 400 Emesis 200 Other: # Bowel Movements 0 - Physical Exam Head: Positive for: Atraumatic, Normocephalic Pupils: Positive for: PERRL Extroacular Muscles: Positive for: EOMI Mouth: Positive for: Moist Mucous Membranes Respiratory/Chest: Positive for: Decreased Breath Sounds. Negative for: Respiratory Distress Cardiovascular: Positive for: Regular Rate and Rhythm, Normal S1, S2 Abdomen: Positive for: Tenderness (L sided ), Normal Bowel Sounds, Other ( Enlarged liver palpable). Negative for: Distention, Peritoneal Signs, Guarding Back: Negative for: CVA Tenderness Upper Extremity: Positive for: NORMAL PULSES, Capillary Refill < 2s. Negative for: Cyanosis, Edema Lower Extremity: Positive for: NORMAL PULSES. Negative for: Edema, CALF TENDERNESS Neurological: Positive for: GCS=15, CN II-XII Intact Skin: Positive for: Warm, Dry, Normal Color Psychiatric: Positive for: Alert, Oriented x 3 - Medications Active Medications: Active Medications Generic Name Dose Route Start Last Admin Trade Name Freq PRN Reason Stop Dose Admin Acetaminophen 650 mg 04/26/18 17:00 05/07/18 00:26 Tylenol 325mg Tab PO 650 mg Q6 PRN Administration Pain, Mild (1-3) Enoxaparin Sodium 30 mg 05/07/18 10:00 05/07/18 09:26 Lovenox SC 30 mg DAILY NAN Administration Famotidine 20 mg 04/27/18 10:00 05/07/18 09:27 Pepcid PO 20 mg DAILY NAN Administration Fluconazole 100 mg 05/07/18 10:00 05/07/18 09:50 Diflucan PO 100 mg DAILY NAN Administration Protocol Hydroxyurea 500 mg 05/04/18 18:00 05/07/18 09:26 Hydrea PO 500 mg BID NAN Administration Ondansetron HCl 4 mg 05/06/18 12:00 05/07/18 03:25 Zofran Inj IVP 4 mg Q6H PRN Administration Nausea/Vomiting Potassium Chloride 10 meq 04/28/18 18:15 05/07/18 08:31 Klor-Con 10 PO Not Given BRK NAN Propranolol HCl 20 mg 05/01/18 19:15 05/07/18 09:26 Inderal PO 20 mg TID NAN Administration - Patient Studies Lab Studies: Microbiology Studies 05/01/18 18:21 Blood Culture - Final Blood-Venous NO GROWTH AFTER 5 DAYS Gram Stain - Final TEST NOT PERFORMED 05/01/18 16:55 Blood Culture - Final Blood-Venous NO GROWTH AFTER 5 DAYS Gram Stain - Final TEST NOT PERFORMED Lab Studies 05/07/18 05/07/18 05/06/18 Range/Units 06:33 06:33 11:29 WBC 74.8 H* (4.8-10.8) K/uL RBC 3.28 L (3.80-5.20) Mil/uL Hgb 9.1 L (11.0-16.0) g/dL Hct 29.0 L (34.0-47.0) % MCV 88.4 D (81.0-99.0) fL MCH 27.6 (27.0-31.0) pg MCHC 31.2 L (33.0-37.0) g/dL RDW 17.7 H (11.5-14.5) % Plt Count 80 L (130-400) K/uL MPV 12.8 H (7.2-11.7) fL Neut % (Auto) 83.5 H (50.0-75.0) % Lymph % (Auto) 4.7 L (20.0-40.0) % Mathews % (Auto) 9.5 (0.0-10.0) % Eos % (Auto) 1.4 (0.0-4.0) % Baso % (Auto) 0.9 (0.0-2.0) % Neut # (Auto) 62.5 H (1.8-7.0) K/uL Lymph # (Auto) 3.5 (1.0-4.3) K/uL Mathews # (Auto) 7.1 H (0.0-0.8) K/uL Eos # (Auto) 1.0 H (0.0-0.7) K/uL Baso # (Auto) 0.7 H (0.0-0.2) K/uL Neutrophils % (Manual) 67 69 (50-75) % Band Neutrophils % 9 H 9 H (0-2) % Lymphocytes % (Manual) 3 L 4 L (20-40) % Monocytes % (Manual) 14 H 7 (0-10) % Eosinophils % (Manual) 3 (0-4) % Metamyelocytes % 4 H 5 H (0-0) % Myelocytes % 3 H 3 H (0-0) % Platelet Estimate Decreased L Decreased L (NORMAL) Large Platelets Present Polychromasia Slight Slight Hypochromasia (manual) Slight Slight Anisocytosis (manual) Slight Moderate Tear Drop Cells Slight Ovalocytes Slight Slight Sodium 139 (132-148) mmol/L Potassium 5.0 (3.6-5.2) mmol/L Chloride 110 H (98-107) mmol/L Carbon Dioxide 21 L (22-30) mmol/L Anion Gap 14 (10-20) BUN 51 H (7-17) mg/dL Creatinine 2.1 H (0.7-1.2) mg/dL Est GFR ( Amer) 28 Est GFR (Non-Af Amer) 23 Random Glucose 100 (65-105) mg/dL Calcium 7.1 L (8.6-10.4) mg/dl Phosphorus 6.7 H (2.5-4.5) mg/dL Magnesium 2.1 (1.6-2.3) mg/dL Total Bilirubin 0.6 (0.2-1.3) mg/dL AST 29 (14-36) U/L ALT 26 (9-52) U/L Alkaline Phosphatase 62 (38-126) U/L Total Protein 5.7 L (6.3-8.3) g/dL Albumin 2.7 L (3.5-5.0) g/dL Globulin 3.1 (2.2-3.9) gm/dL Albumin/Globulin Ratio 0.9 L (1.0-2.1) Blood Type Blood Type Confirm Antibody Screen 05/06/18 Range/Units 10:31 WBC (4.8-10.8) K/uL RBC (3.80-5.20) Mil/uL Hgb (11.0-16.0) g/dL Hct (34.0-47.0) % MCV (81.0-99.0) fL MCH (27.0-31.0) pg MCHC (33.0-37.0) g/dL RDW (11.5-14.5) % Plt Count (130-400) K/uL MPV (7.2-11.7) fL Neut % (Auto) (50.0-75.0) % Lymph % (Auto) (20.0-40.0) % Mathews % (Auto) (0.0-10.0) % Eos % (Auto) (0.0-4.0) % Baso % (Auto) (0.0-2.0) % Neut # (Auto) (1.8-7.0) K/uL Lymph # (Auto) (1.0-4.3) K/uL Mathews # (Auto) (0.0-0.8) K/uL Eos # (Auto) (0.0-0.7) K/uL Baso # (Auto) (0.0-0.2) K/uL Neutrophils % (Manual) (50-75) % Band Neutrophils % (0-2) % Lymphocytes % (Manual) (20-40) % Monocytes % (Manual) (0-10) % Eosinophils % (Manual) (0-4) % Metamyelocytes % (0-0) % Myelocytes % (0-0) % Platelet Estimate (NORMAL) Large Platelets Polychromasia Hypochromasia (manual) Anisocytosis (manual) Tear Drop Cells Ovalocytes Sodium (132-148) mmol/L Potassium (3.6-5.2) mmol/L Chloride (98-107) mmol/L Carbon Dioxide (22-30) mmol/L Anion Gap (10-20) BUN (7-17) mg/dL Creatinine (0.7-1.2) mg/dL Est GFR ( Amer) Est GFR (Non-Af Amer) Random Glucose (65-105) mg/dL Calcium (8.6-10.4) mg/dl Phosphorus (2.5-4.5) mg/dL Magnesium (1.6-2.3) mg/dL Total Bilirubin (0.2-1.3) mg/dL AST (14-36) U/L ALT (9-52) U/L Alkaline Phosphatase (38-126) U/L Total Protein (6.3-8.3) g/dL Albumin (3.5-5.0) g/dL Globulin (2.2-3.9) gm/dL Albumin/Globulin Ratio (1.0-2.1) Blood Type A POSITIVE Blood Type Confirm A POSITIVE Antibody Screen Negative Laboratory Results - last 24 hr 05/06/18 05/06/18 05/07/18 10:31 11:29 06:33 WBC 74.8 H* RBC 3.28 L Hgb 9.1 L Hct 29.0 L MCV 88.4 D MCH 27.6 MCHC 31.2 L RDW 17.7 H Plt Count 80 L MPV 12.8 H Neut % (Auto) 83.5 H Lymph % (Auto) 4.7 L Mathews % (Auto) 9.5 Eos % (Auto) 1.4 Baso % (Auto) 0.9 Neut # (Auto) 62.5 H Lymph # (Auto) 3.5 Mathews # (Auto) 7.1 H Eos # (Auto) 1.0 H Baso # (Auto) 0.7 H Neutrophils % (Manual) 69 67 Band Neutrophils % 9 H 9 H Lymphocytes % (Manual) 4 L 3 L Monocytes % (Manual) 7 14 H Eosinophils % (Manual) 3 Metamyelocytes % 5 H 4 H Myelocytes % 3 H 3 H Platelet Estimate Decreased L Decreased L Large Platelets Present Polychromasia Slight Slight Hypochromasia (manual) Slight Slight Anisocytosis (manual) Moderate Slight Tear Drop Cells Slight Ovalocytes Slight Slight Sodium Potassium Chloride Carbon Dioxide Anion Gap BUN Creatinine Est GFR ( Amer) Est GFR (Non-Af Amer) Random Glucose Calcium Phosphorus Magnesium Total Bilirubin AST ALT Alkaline Phosphatase Total Protein Albumin Globulin Albumin/Globulin Ratio Blood Type A POSITIVE Blood Type Confirm A POSITIVE Antibody Screen Negative 05/07/18 06:33 WBC RBC Hgb Hct MCV MCH MCHC RDW Plt Count MPV Neut % (Auto) Lymph % (Auto) Mathews % (Auto) Eos % (Auto) Baso % (Auto) Neut # (Auto) Lymph # (Auto) Mathews # (Auto) Eos # (Auto) Baso # (Auto) Neutrophils % (Manual) Band Neutrophils % Lymphocytes % (Manual) Monocytes % (Manual) Eosinophils % (Manual) Metamyelocytes % Myelocytes % Platelet Estimate Large Platelets Polychromasia Hypochromasia (manual) Anisocytosis (manual) Tear Drop Cells Ovalocytes Sodium 139 Potassium 5.0 Chloride 110 H Carbon Dioxide 21 L Anion Gap 14 BUN 51 H Creatinine 2.1 H Est GFR ( Amer) 28 Est GFR (Non-Af Amer) 23 Random Glucose 100 Calcium 7.1 L Phosphorus 6.7 H Magnesium 2.1 Total Bilirubin 0.6 AST 29 ALT 26 Alkaline Phosphatase 62 Total Protein 5.7 L Albumin 2.7 L Globulin 3.1 Albumin/Globulin Ratio 0.9 L Blood Type Blood Type Confirm Antibody Screen Critical Care Progress Note - Nutrition Nutrition: Nutrition Category Date Time Status Heart Healthy Diet [DIET] Diets 04/30/18 Breakfast Active Assessment/Plan - Assessment and Plan (Free Text) Assessment: 67 year old female with history of arthritis, HTN, myelofibrosis with chronic leukocytosis who was admitted for right flank pain following failed outpatient treatment of pyelonephritis. CT revealed right hydroureteronephrosis with ureteral stricture, and she is s/p ureteral stent insertion by Dr. Irvin on 04/25/18. Patient developed Atrial fibrillation, currently on PO Cardizem. RLE DVT, on Eliquis. Patient complains of left lower quadrant pain. CT abdomen showing acute hemorrhagic process emanating from the spleen. Will observe the patient closely in the ICU. Plan: Neuro: AAO x 3 Pulm: Nasal cannula as tolerated Maintain SPO2 > 92 % CV: Currently hemodynamically stable Maintain MAP > [address] Alex consulted, help appreciated Eliquis held ECHO Left ventricle systolic function is normal. EF 65-70%. Transmitral doppler flow pattern is Grade I-abnormal relaxation pattern. Trace aortic regurgitation. Moderate pulmonary HTN Dopplers: Acute thrombosis of right gastrocnemius vein with severe reduction of venous return. VQ scan Low probability for pulmonary embolism. F/u Arterial doppler of right femoral access site to r/o pseudoaneurysm. GI: Pepcid 20mg PO daily Continue Inderal 20mg TID Hepatosplenomegaly with portal HTN and portosystemic varices CT abdomen: 1. Right perinephric reaction is appreciated with mild to moderate right hydroureteronephrosis potentially on the basis of distal right ureteral stricture, lucent calculus or expelled calculus. No radiodense urolithiasis identified bilaterally including urinary bladder. Left kidney appears unremarkable. 2. Prominent carrie hepatis with extensive upper abdominal varices and splenomegaly suspicious for pattern blood flow. No gross pattern of hepatic cirrhosis. Cryptogenic cirrhosis is a possibility. Clinically correlate further. 3. Large calculus within the gallbladder with the gallbladder otherwise unremarkable appearing. CT abdomen 1. 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 Persistent mild right hydronephrosis and mild diffuse dilatation of the right ureteral with surrounding inflammatory changes without evidence for obstructing stones. Pyelonephritis/distal ureteral stricture is a consideration. Apparent mild mural thickening of the urinary bladder wall could also be related to cystitis. Please correlate with urine analysis. 3. No other significant interval change. Abdomen US: Normal splenic vein not well delineated on this study. Prominent varices noted surrounding the splenic vein. Clinical correlation. Dilated portal vein with increased velocity noted in the portal vein. Portal vein flow appears turbulent. Prominent varices are noted at the level of the carrie hepatis. Clinical correlation. Enlarged liver measuring 24.7 centimeters. Nodular and cirrhotic contour. Increased echogenicity of the hepatic parenchymal cortex suggestive for hepatic parenchymal disease versus fatty infiltration. Clinical correlation. Cholelithiasis. Gallbladder wall thickness measures 2.6 millimeters. Negative sonographic Hidalgo's sign. Spleen is markedly enlarged measuring up to 20 centimeters length. Increased echogenicity of the bilateral renal parenchymal cortices suggestive for medical renal disease. Small right pleural effusion. Abdomen US limited: Turbulent flow within the splenic vein without evidence of gross thrombus. Clinical correlation. Turbulent flow within the portal vein without gross thrombus. Patent flow in the hepatic veins. Right pleural effusion noted.Pancreas not well visualized. Dr. Méndez consulted, help appreciated antismooth muscle negative TRACEY 6 profile negative Hep panel negative 05/06 CT abdomen showed acute hemorrhagic process emanating from the spleen S/p embolization of splenic artery by IR Dr. Horne Arterial doppler ordered to r/o pseudoaneurysm Renal: Monitor I and O Replete electrolytes as needed Urology Dr Flor Irvin consulted Heme: Hx of myelofibrosis with chronic leukocytosis Dr. Mcbride consulted, help appreciated Transfused 2 Units of PRBC Eliquis held H/H Continue Hydrea 500mg BID ID: Afebrile and Wbc of 74.[address] Jackson consulted, help appreciated Cont Fluconazole 100mg PO Urine culture + yeast Endo: Maintain euglycemia PPX: Lovenox, Pepcid Case discussed with Dr. Serna <Enmanuel Serna S - Last Filed: 05/07/18 17:55> CCU Subjective - Physician Review Critical Care Time Spent (in minutes): 30 CCU Objective - Vital Signs / Intake & Output Vital Signs (Last 4 hours): Vital Signs Temp Pulse Resp BP Pulse Ox 05/07/18 17:01 75 32 H 165/58 H 99 05/07/18 17:00 76 31 H 05/07/18 16:45 78 16 96 05/07/18 16:30 73 26 H 100 05/07/18 16:15 64 23 100 05/07/18 16:00 98.3 F 73 11 L 161/66 H 96 05/07/18 15:59 75 14 95 05/07/18 15:45 69 31 H 96 05/07/18 15:30 74 24 99 05/07/18 15:15 62 24 100 05/07/18 15:00 63 25 H 151/61 H 100 05/07/18 14:45 71 26 H 94 L 05/07/18 14:00 71 18 160/75 H 99 Intake and Output (Last 8hrs): Intake & Output 05/07/18 05/07/18 05/07/18 06:59 14:59 22:59 Intake Total 1220 210 300 Output Total 500 705 125 Balance 720 -495 175 Weight 180 lb 12.465 oz Intake: Intake, IV Amount 500 Right PICC 500 Oral 50 210 300 Blood Product 650 Red Blood Cells Cpd As1 325 Lr Unit [id number] Other 20 Red Blood Cells Cpd As1 20 Lr Unit [id number] Output: Urine 500 675 125 Urine, Voided 500 675 125 Emesis 30 - Medications Active Medications: Active Medications Generic Name Dose Route Start Last Admin Trade Name Freq PRN Reason Stop Dose Admin Acetaminophen 650 mg 04/26/18 17:00 05/07/18 00:26 Tylenol 325mg Tab PO 650 mg Q6 PRN Administration Pain, Mild (1-3) Enoxaparin Sodium 30 mg 05/07/18 10:00 05/07/18 09:26 Lovenox SC 30 mg DAILY NAN Administration Famotidine 20 mg 04/27/18 10:00 05/07/18 09:27 Pepcid PO 20 mg DAILY NAN Administration Fluconazole 100 mg 05/07/18 10:00 05/07/18 09:50 Diflucan PO 100 mg DAILY NAN Administration Protocol Hydroxyurea 500 mg 05/04/18 18:00 05/07/18 09:26 Hydrea PO 500 mg BID NAN Administration Ondansetron HCl 4 mg 05/06/18 12:00 05/07/18 14:18 Zofran Inj IVP 4 mg Q6H PRN Administration Nausea/Vomiting Potassium Chloride 10 meq 04/28/18 18:15 05/07/18 08:31 Klor-Con 10 PO Not Given BRK NAN Propranolol HCl 20 mg 05/01/18 19:15 05/07/18 14:12 Inderal PO 20 mg TID NAN Administration - Patient Studies Lab Studies: Microbiology Studies 05/01/18 18:21 Blood Culture - Final Blood-Venous NO GROWTH AFTER 5 DAYS Gram Stain - Final TEST NOT PERFORMED 05/01/18 16:55 Blood Culture - Final Blood-Venous NO GROWTH AFTER 5 DAYS Gram Stain - Final TEST NOT PERFORMED Lab Studies 05/07/18 05/07/18 05/06/18 Range/Units 06:33 06:33 10:31 WBC 74.8 H* (4.8-10.8) K/uL RBC 3.28 L (3.80-5.20) Mil/uL Hgb 9.1 L (11.0-16.0) g/dL Hct 29.0 L (34.0-47.0) % MCV 88.4 D (81.0-99.0) fL MCH 27.6 (27.0-31.0) pg MCHC 31.2 L (33.0-37.0) g/dL RDW 17.7 H (11.5-14.5) % Plt Count 80 L (130-400) K/uL MPV 12.8 H (7.2-11.7) fL Neut % (Auto) 83.5 H (50.0-75.0) % Lymph % (Auto) 4.7 L (20.0-40.0) % Mathews % (Auto) 9.5 (0.0-10.0) % Eos % (Auto) 1.4 (0.0-4.0) % Baso % (Auto) 0.9 (0.0-2.0) % Neut # (Auto) 62.5 H (1.8-7.0) K/uL Lymph # (Auto) 3.5 (1.0-4.3) K/uL Mathews # (Auto) 7.1 H (0.0-0.8) K/uL Eos # (Auto) 1.0 H (0.0-0.7) K/uL Baso # (Auto) 0.7 H (0.0-0.2) K/uL Neutrophils % (Manual) 67 (50-75) % Band Neutrophils % 9 H (0-2) % Lymphocytes % (Manual) 3 L (20-40) % Monocytes % (Manual) 14 H (0-10) % Metamyelocytes % 4 H (0-0) % Myelocytes % 3 H (0-0) % Platelet Estimate Decreased L (NORMAL) Polychromasia Slight Hypochromasia (manual) Slight Anisocytosis (manual) Slight Tear Drop Cells Slight Ovalocytes Slight Sodium 139 (132-148) mmol/L Potassium 5.0 (3.6-5.2) mmol/L Chloride 110 H (98-107) mmol/L Carbon Dioxide 21 L (22-30) mmol/L Anion Gap 14 (10-20) BUN 51 H (7-17) mg/dL Creatinine 2.1 H (0.7-1.2) mg/dL Est GFR ( Amer) 28 Est GFR (Non-Af Amer) 23 Random Glucose 100 (65-105) mg/dL Calcium 7.1 L (8.6-10.4) mg/dl Phosphorus 6.7 H (2.5-4.5) mg/dL Magnesium 2.1 (1.6-2.3) mg/dL Total Bilirubin 0.6 (0.2-1.3) mg/dL AST 29 (14-36) U/L ALT 26 (9-52) U/L Alkaline Phosphatase 62 (38-126) U/L Total Protein 5.7 L (6.3-8.3) g/dL Albumin 2.7 L (3.5-5.0) g/dL Globulin 3.1 (2.2-3.9) gm/dL Albumin/Globulin Ratio 0.9 L (1.0-2.1) Blood Type A POSITIVE Blood Type Confirm A POSITIVE Antibody Screen Negative Laboratory Results - last 24 hr 05/06/18 05/07/18 05/07/18 10:31 06:33 06:33 WBC 74.8 H* RBC 3.28 L Hgb 9.1 L Hct 29.0 L MCV 88.4 D MCH 27.6 MCHC 31.2 L RDW 17.7 H Plt Count 80 L MPV 12.8 H Neut % (Auto) 83.5 H Lymph % (Auto) 4.7 L Mathews % (Auto) 9.5 Eos % (Auto) 1.4 Baso % (Auto) 0.9 Neut # (Auto) 62.5 H Lymph # (Auto) 3.5 Mathews # (Auto) 7.1 H Eos # (Auto) 1.0 H Baso # (Auto) 0.7 H Neutrophils % (Manual) 67 Band Neutrophils % 9 H Lymphocytes % (Manual) 3 L Monocytes % (Manual) 14 H Metamyelocytes % 4 H Myelocytes % 3 H Platelet Estimate Decreased L Polychromasia Slight Hypochromasia (manual) Slight Anisocytosis (manual) Slight Tear Drop Cells Slight Ovalocytes Slight Sodium 139 Potassium 5.0 Chloride 110 H Carbon Dioxide 21 L Anion Gap 14 BUN 51 H Creatinine 2.1 H Est GFR ( Amer) 28 Est GFR (Non-Af Amer) 23 Random Glucose 100 Calcium 7.1 L Phosphorus 6.7 H Magnesium 2.1 Total Bilirubin 0.6 AST 29 ALT 26 Alkaline Phosphatase 62 Total Protein 5.7 L Albumin 2.7 L Globulin 3.1 Albumin/Globulin Ratio 0.9 L Blood Type A POSITIVE Blood Type Confirm A POSITIVE Antibody Screen Negative Critical Care Progress Note - Nutrition Nutrition: Nutrition Category Date Time Status Heart Healthy Diet [DIET] Diets 04/30/18 Breakfast Active Attending/Attestation - Attestation I have personally seen and examined this patient.: Yes I have fully participated in the care of the patient.: Yes I have reviewed all pertinent clinical information: Yes Notes (Text): 05/07/18 17:54 patient seen and examined in the intensive care Status post embolization of splenic artery Complaining of nausea Status post transfusion of packed RBCs Continue present treatment Possible bone marrow biopsy
--- NOTE | 2018-05-07 12:46 | CP.PCM.CON ---
History of Present Illness - History of Present Illness History of Present Illness: Vascular surgery consult note for Dr. Marielle Mahoney, PGY-2 Pt S & E at bedside at 0920 67F w/PMH sig for arthritis, HTN, renal insufficiency, myelofibrosis consulted for splenic rupture on CT abdomen. Pt admitted to hospital for R flank pain x 1 day with several episodes of emesis on Apr 23, 2018. Pt had continued abdominal pain over course of hospitalization with CT abdomen done on 05/06 with findings suggestive of injury/trauma or acute hemorrhagic process emenating from spleen with new abdominal and pelvic ascites, likely hemorrhagic. Pt was taken for IR embolization of splenic artery as per family/patient wishes. Today, pt continues to c/o RUQ abdominal pain and nausea. Per nursing, pt has been nauseous overnight, requiring medication. Denies F & C, appetite, other complaints. PMH: arthritis, HTN, renal insufficiency, myelofibrosis PSH: Denies All: NKDA SH: Denies ETOH, tobacco or ilicit drug use FH: Non contributory Review of Systems - Review of Systems All systems: reviewed and no additional remarkable complaints except - Constitutional Constitutional: absent: Chills, Fever - EENT Eyes: absent: Change in Vision Nose/Mouth/Throat: absent: Sore Throat - Cardiovascular Cardiovascular: absent: Chest Pain - Gastrointestinal Gastrointestinal: Abdominal Pain, Nausea. absent: Constipation, Diarrhea, Vomiting - Genitourinary Genitourinary: absent: Change in Urinary Stream - Musculoskeletal Musculoskeletal: absent: Back Pain Past Patient History - Infectious Disease Hx of Infectious Diseases: None - Past Medical History & Family History Past Medical History?: Yes - Past Social History Smoking Status: Never Smoked - CARDIAC Hx Hypertension: Yes - PULMONARY Hx Respiratory Disorders: No - NEUROLOGICAL Hx Neurological Disorder: No - HEENT Hx HEENT Problems: No - RENAL Hx Chronic Kidney Disease: No - ENDOCRINE/METABOLIC Hx Endocrine Disorders: No - HEMATOLOGICAL/ONCOLOGICAL Other/Comment: Myelofibrosis - INTEGUMENTARY Hx Dermatological Problems: No - MUSCULOSKELETAL/RHEUMATOLOGICAL Hx Arthritis: Yes - GASTROINTESTINAL Hx Gastrointestinal Disorders: No - GENITOURINARY/GYNECOLOGICAL Hx Genitourinary Disorders: No - PSYCHIATRIC Hx Substance Use: No - SURGICAL HISTORY Hx Surgeries: No - ANESTHESIA Hx Anesthesia: No Meds Allergies/Adverse Reactions: Allergies Allergy/AdvReac Type Severity Reaction Status Date / Time No Known Allergies Allergy Verified 04/23/18 07:41 - Medications Medications: Current Medications Acetaminophen (Tylenol 325mg Tab) 650 mg PO Q6 PRN PRN Reason: Pain, Mild (1-3) Last Admin: 05/07/18 00:26 Dose: 650 mg Enoxaparin Sodium (Lovenox) 30 mg SC DAILY [facility] Last Admin: 05/07/18 09:26 Dose: 30 mg Famotidine (Pepcid) 20 mg PO DAILY [facility] Last Admin: 05/07/18 09:27 Dose: 20 mg Fluconazole (Diflucan) 100 mg PO DAILY [facility] PRN Reason: Protocol Last Admin: 05/07/18 09:50 Dose: 100 mg Hydroxyurea (Hydrea) 500 mg PO BID [facility] Last Admin: 05/07/18 09:26 Dose: 500 mg Ondansetron HCl (Zofran Inj) 4 mg IVP Q6H PRN PRN Reason: Nausea/Vomiting Last Admin: 05/07/18 03:25 Dose: 4 mg Potassium Chloride (Klor-Con 10) 10 meq PO BRK [facility] Last Admin: 05/07/18 08:31 Dose: Not Given Propranolol HCl (Inderal) 20 mg PO TID [facility] Last Admin: 05/07/18 09:26 Dose: 20 mg Physical Exam - Constitutional Appears: Non-toxic, No Acute Distress - Head Exam Head Exam: ATRAUMATIC, NORMAL INSPECTION, NORMOCEPHALIC - Eye Exam Eye Exam: EOMI, Normal appearance - ENT Exam ENT Exam: Mucous Membranes Moist, Normal Exam - Neck Exam Neck exam: Positive for: Full Rom, Normal Inspection - Respiratory Exam Respiratory Exam: NORMAL BREATHING PATTERN - Cardiovascular Exam Cardiovascular Exam: REGULAR RHYTHM, +S1, +S2 - GI/Abdominal Exam GI & Abdominal Exam: Soft, Tenderness (RUQ). absent: Distended (obese), Firm, Guarding, Hernia - Extremities Exam Extremities exam: Positive for: normal inspection - Neurological Exam Neurological exam: Alert, CN II-XII Intact, Oriented x3 - Psychiatric Exam Psychiatric exam: Normal Affect, Normal Mood - Skin Skin Exam: Dry, Intact, Normal Color, Warm Results - Vital Signs Recent Vital Signs: Last Vital Signs Temp 98.2 F 05/07/18 08:00 Pulse 72 05/07/18 11:15 Resp 26 H 05/07/18 11:15 BP 149/68 05/07/18 11:00 Pulse Ox 96 05/07/18 11:15 - Labs Result Diagrams: 05/07/18 06:33 05/07/18 06:33 Labs: Laboratory Results - last 24 hr 05/06/18 05/06/18 05/07/18 10:31 11:29 06:33 WBC 74.8 H* RBC 3.28 L Hgb 9.1 L Hct 29.0 L MCV 88.4 D MCH 27.6 MCHC 31.2 L RDW 17.7 H Plt Count 80 L MPV 12.8 H Neut % (Auto) 83.5 H Lymph % (Auto) 4.7 L [place] % (Auto) 9.5 Eos % (Auto) 1.4 Baso % (Auto) 0.9 Neut # (Auto) 62.5 H Lymph # (Auto) 3.5 [place] # (Auto) 7.1 H Eos # (Auto) 1.0 H Baso # (Auto) 0.7 H Neutrophils % (Manual) 69 67 Band Neutrophils % 9 H 9 H Lymphocytes % (Manual) 4 L 3 L Monocytes % (Manual) 7 14 H Eosinophils % (Manual) 3 Metamyelocytes % 5 H 4 H Myelocytes % 3 H 3 H Platelet Estimate Decreased L Decreased L Large Platelets Present Polychromasia Slight Slight Hypochromasia (manual) Slight Slight Anisocytosis (manual) Moderate Slight Tear Drop Cells Slight Ovalocytes Slight Slight Sodium Potassium Chloride Carbon Dioxide Anion Gap BUN Creatinine Est GFR ( Amer) Est GFR (Non-Af Amer) Random Glucose Calcium Phosphorus Magnesium Total Bilirubin AST ALT Alkaline Phosphatase Total Protein Albumin Globulin Albumin/Globulin Ratio Blood Type A POSITIVE Blood Type Confirm A POSITIVE Antibody Screen Negative 05/07/18 06:33 WBC RBC Hgb Hct MCV MCH MCHC RDW Plt Count MPV Neut % (Auto) Lymph % (Auto) [place] % (Auto) Eos % (Auto) Baso % (Auto) Neut # (Auto) Lymph # (Auto) [place] # (Auto) Eos # (Auto) Baso # (Auto) Neutrophils % (Manual) Band Neutrophils % Lymphocytes % (Manual) Monocytes % (Manual) Eosinophils % (Manual) Metamyelocytes % Myelocytes % Platelet Estimate Large Platelets Polychromasia Hypochromasia (manual) Anisocytosis (manual) Tear Drop Cells Ovalocytes Sodium 139 Potassium 5.0 Chloride 110 H Carbon Dioxide 21 L Anion Gap 14 BUN 51 H Creatinine 2.1 H Est GFR ( Amer) 28 Est GFR (Non-Af Amer) 23 Random Glucose 100 Calcium 7.1 L Phosphorus 6.7 H Magnesium 2.1 Total Bilirubin 0.6 AST 29 ALT 26 Alkaline Phosphatase 62 Total Protein 5.7 L Albumin 2.7 L Globulin 3.1 Albumin/Globulin Ratio 0.9 L Blood Type Blood Type Confirm Antibody Screen Assessment & Plan - Assessment and Plan (Free Text) Assessment: 67F w/splenic hemorrhage s/p IR embolization with Hgb 9.1 from 7.5 Plan: Pain control No vascular surgical intervention pt stabilized with IR embolization thank you for this consult DW Dr. James Mahoney, PGY-2 - Date & Time Date: 05/07/18 Time: 09:30
--- NOTE | 2018-05-07 14:05 | CP.PCM.PN ---
<LuisFabiolacarin E - Last Filed: 05/07/18 17:56> Subjective - Date & Time of Evaluation Date of Evaluation: 05/07/18 Time of Evaluation: 09:45 - Subjective Subjective: Cardiology progress note (Dr. Alex's service) Patient was seen and examined at bedside. Patient was resting comfortably in bed in no acute distress. Patient denies any cardiac symptoms such as chest pain , palpitations, SOB, dizziness, lightheadedness. Furthermore, patient denies any abdominal pain, nausea, vomiting. Patient denies ay acute issues or new complaints. Objective - Vital Signs/Intake and Output Vital Signs (last 24 hours): Temp Pulse Resp BP Pulse Ox 98.2 F 72 26 H 149/68 96 05/07/18 08:00 05/07/18 11:15 05/07/18 11:15 05/07/18 11:00 05/07/18 11:15 Intake and Output: 05/07/18 05/07/18 06:59 18:59 Intake Total 2420 100 Output Total 900 400 Balance 1520 -300 - Medications Medications: Current Medications Acetaminophen (Tylenol 325mg Tab) 650 mg PO Q6 PRN PRN Reason: Pain, Mild (1-3) Last Admin: 05/07/18 00:26 Dose: 650 mg Enoxaparin Sodium (Lovenox) 30 mg SC DAILY [facility] Last Admin: 05/07/18 09:26 Dose: 30 mg Famotidine (Pepcid) 20 mg PO DAILY [facility] Last Admin: 05/07/18 09:27 Dose: 20 mg Fluconazole (Diflucan) 100 mg PO DAILY [facility] PRN Reason: Protocol Last Admin: 05/07/18 09:50 Dose: 100 mg Hydroxyurea (Hydrea) 500 mg PO BID [facility] Last Admin: 05/07/18 09:26 Dose: 500 mg Ondansetron HCl (Zofran Inj) 4 mg IVP Q6H PRN PRN Reason: Nausea/Vomiting Last Admin: 05/07/18 03:25 Dose: 4 mg Potassium Chloride (Klor-Con 10) 10 meq PO BRK [facility] Last Admin: 05/07/18 08:31 Dose: Not Given Propranolol HCl (Inderal) 20 mg PO TID [facility] Last Admin: 05/07/18 09:26 Dose: 20 mg - Labs Labs: 05/07/18 06:33 05/07/18 06:33 PT 16.9 SECONDS (9.7-12.2) H 05/06/18 12:09 INR 1.5 05/06/18 12:09 APTT 32 SECONDS (21-34) 05/06/18 12:09 - Constitutional Appears: Well, No Acute Distress - Head Exam Head Exam: ATRAUMATIC, NORMAL INSPECTION - Eye Exam Eye Exam: EOMI - ENT Exam ENT Exam: Mucous Membranes Moist - Respiratory Exam Respiratory Exam: NORMAL BREATHING PATTERN - Cardiovascular Exam Cardiovascular Exam: REGULAR RHYTHM, +S1, +S2 - GI/Abdominal Exam GI & Abdominal Exam: Soft, Normal Bowel Sounds, Organomegaly - Extremities Exam Extremities Exam: absent: Pedal Edema - Neurological Exam Neurological Exam: Alert, Awake, Oriented x3 Assessment and Plan (1) Atrial fibrillation, new onset Assessment & Plan: Patient is a 67 year old female with past medical history hypertension, myelofibrosis, chronic leukocytosis on treatment for myelofibrosis currently on treatment with hematology and oncology, Rae Jalloh, who was admitted from right flank pain and found to have a R Hydronephrosis and now s/p R ureteral stent. Cardiology consult was placed for new onset of atrial fibrillation with rapid ventricular response: Labs: - TSH: 0.53, WNL 1. Rule out PE, V/Q scan negative, D-Dimer is elevated (431), continuation with heparin drip - LE Venous doppler scan: Acute thrombosis of the right gastrocnemius with severe reduction of the venous return. No evidence of deep venous thrombosis in the left lower extremities 2. Rate controlled on Cardizem drip 125mg at 5mg/hr -> Cardizem discontinued. Currently cardizem 30mg PO QID (discontinued as patient is already on propranolol 20mg PO TID 3. V/Q scan is negative for PE, plans for possible YANI and cardioversion tomorrow 04/30/18 was cancelled due to conversion to NSR this am 4. YANI and cardioversion 04/30/18 was cancelled due to conversion to NSR 5. Eliquis 2.5mg PO BID, stopped due to possible splenic bleed on abdominal CT ( Findings suggestive of injury/trauma or acute hemorrhagic process emanating from to the spleen with new abdominal and pelvic ascites which is likely hemorrhagic.) Status: Acute (2) Splenic hemorrhage Assessment & Plan: Abdomen/Pelvis CT: Findings suggestive of injury/trauma or acute hemorrhagic process emanating from to the spleen with new abdominal and pelvic ascites which is likely hemorrhagic. IR consult, Dr. Horen on board * Angiogram showed no active bleed from spleen. Splenic artery embolization done Anemia possibly secondary to splenic hemorrhage: * 7.5/25.0 * Transfusion as needed Status: Acute (3) DVT (deep venous thrombosis) Assessment & Plan: D-Dimer is elevated (431) LE Venous doppler scan: Acute thrombosis of the right gastrocnemius with severe reduction of the venous return. No evidence of deep venous thrombosis in the left lower extremities Medication: * Heparin drip (Discontinued) * Eliquis 2.5mg PO BID (discontinued due to abdominal CT findings suggestive of injury/trauma or acute hemorrhagic process emanating from to the spleen with new abdominal and pelvic ascites which is likely hemorrhagic.) Status: Acute (4) Myelofibrosis Assessment & Plan: Elevated WBC Hematoloy/Oncology, Dr. Mcbride on board -Management as per hematology/Oncology Status: Acute (5) Hepatosplenomegaly Assessment & Plan: Abdominal/ Pelvis without contrast: . Prominent carrie hepatis with extensive upper abdominal varices and splenomegaly suspicious for pattern blood flow. No gross pattern of hepatic cirrhosis. Cryptogenic cirrhosis is a possibility. Clinically correlate further. As per GI, Dr. Méndez: it is not clear whether the splenomegaly and portal HTN are from thrombosi or perhaps from underlying cirrhosis. Will start on beta sanjuanita for variceal prophylaxis, and work up for causes of chronic liver disease. Medication for variceal ppx: * Propranolol 10mg PO BID---> 20mg TID Status: Acute (6) Elevated brain natriuretic peptide (BNP) level Assessment & Plan: BNP: 15,300, Trending down Chest X-ray (04/29/18): Right-sided PICC. Moderate pulmonary venous congestion. Cardiomegaly. Ectatic aorta. Echocardiogram (04/26/18): LV function is normal. EF (65-70%). Trace aortic regurgitation and moderate pulmonary hypertension Lasix 20mg PO BID; gentle diuresis in light of SOFIA: D/C due to worsening SOFIA Status: Acute (7) Hydronephrosis, right Assessment & Plan: Abdominal/ Pelvis without contrast: Right perinephric reaction is appreciated with mild to moderate right hydroureteronephrosis potentially on the basis of distal right ureteral stricture, lucent calculus or expelled calculus. No radiodense urolithiasis identified bilaterally including urinary bladder. Left kidney appears unremarkable. S/P ureteral stent (04/25/18) Status: Acute (8) Prophylactic measure Assessment & Plan: DVT: Eliquis 2.5mg PO BID, consideration due to splenic hemorrhage, s/p splenic artery embolization. Lovenox 30mg SC daily GI: Pepcid 20mg PO daily All plans and management discussed with Dr. Alex Status: Acute <Alber Alex - Last Filed: 05/07/18 20:32> Objective - Vital Signs/Intake and Output Vital Signs (last 24 hours): Temp Pulse Resp BP Pulse Ox 98.3 F 74 27 H 155/80 H 95 05/07/18 16:00 05/07/18 20:00 05/07/18 20:00 05/07/18 19:56 05/07/18 20:00 Intake and Output: 05/07/18 05/08/18 18:59 06:59 Intake Total 660 Output Total 830 150 Balance -170 -150 - Medications Medications: Current Medications Acetaminophen (Tylenol 325mg Tab) 650 mg PO Q6 PRN PRN Reason: Pain, Mild (1-3) Last Admin: 05/07/18 20:25 Dose: 650 mg Enoxaparin Sodium (Lovenox) 30 mg SC DAILY [facility] Last Admin: 05/07/18 09:26 Dose: 30 mg Famotidine (Pepcid) 20 mg PO DAILY [facility] Last Admin: 05/07/18 09:27 Dose: 20 mg Fluconazole (Diflucan) 100 mg PO DAILY [facility] PRN Reason: Protocol Last Admin: 05/07/18 09:50 Dose: 100 mg Home Med (Home Med) 1 unit PO BID [facility] Hydroxyurea (Hydrea) 500 mg PO BID [facility] Last Admin: 05/07/18 17:58 Dose: 500 mg Ondansetron HCl (Zofran Inj) 4 mg IVP Q6H PRN PRN Reason: Nausea/Vomiting Last Admin: 05/07/18 14:18 Dose: 4 mg Potassium Chloride (Klor-Con 10) 10 meq PO BRK [facility] Last Admin: 05/07/18 08:31 Dose: Not Given Propranolol HCl (Inderal) 20 mg PO TID [facility] Last Admin: 05/07/18 17:57 Dose: 20 mg - Labs Labs: 05/07/18 06:33 05/07/18 06:33 PT 16.9 SECONDS (9.7-12.2) H 05/06/18 12:09 INR 1.5 05/06/18 12:09 APTT 32 SECONDS (21-34) 05/06/18 12:09 Assessment and Plan - Assessment and Plan (Free Text) Assessment: Patient seen and evaluated personally by sc Plan of care d/w the medical program specialist and as docuemented
--- NOTE | 2018-05-07 21:56 | CP.PCM.PN ---
Subjective - Date & Time of Evaluation Date of Evaluation: 05/07/18 Time of Evaluation: 11:45 - Subjective Subjective: clinically same Objective - Vital Signs/Intake and Output Vital Signs (last 24 hours): Temp Pulse Resp BP Pulse Ox 98.2 F 74 27 H 155/80 H 95 05/07/18 20:00 05/07/18 20:00 05/07/18 20:00 05/07/18 19:56 05/07/18 20:00 Intake and Output: 05/07/18 05/08/18 18:59 06:59 Intake Total 660 Output Total 830 250 Balance -170 -250 - Medications Medications: Current Medications Acetaminophen (Tylenol 325mg Tab) 650 mg PO Q6 PRN PRN Reason: Pain, Mild (1-3) Last Admin: 05/07/18 20:25 Dose: 650 mg Enoxaparin Sodium (Lovenox) 30 mg SC DAILY [facility] Last Admin: 05/07/18 09:26 Dose: 30 mg Famotidine (Pepcid) 20 mg PO DAILY [facility] Last Admin: 05/07/18 09:27 Dose: 20 mg Fluconazole (Diflucan) 100 mg PO DAILY [facility] PRN Reason: Protocol Last Admin: 05/07/18 09:50 Dose: 100 mg Home Med (Home Med) 1 unit PO BID [facility] Hydroxyurea (Hydrea) 500 mg PO BID [facility] Last Admin: 05/07/18 17:58 Dose: 500 mg Ondansetron HCl (Zofran Inj) 4 mg IVP Q6H PRN PRN Reason: Nausea/Vomiting Last Admin: 05/07/18 14:18 Dose: 4 mg Potassium Chloride (Klor-Con 10) 10 meq PO BRK [facility] Last Admin: 05/07/18 08:31 Dose: Not Given Propranolol HCl (Inderal) 20 mg PO TID [facility] Last Admin: 05/07/18 17:57 Dose: 20 mg - Labs Labs: 05/07/18 06:33 05/07/18 06:33 PT 16.9 SECONDS (9.7-12.2) H 05/06/18 12:09 INR 1.5 05/06/18 12:09 APTT 32 SECONDS (21-34) 05/06/18 12:09
--- NOTE | 2018-05-08 00:01 | CP.PCM.PN ---
Subjective - Date & Time of Evaluation Date of Evaluation: 05/04/18 Time of Evaluation: 20:00 - Subjective Subjective: Has abdominal pain. Objective - Vital Signs/Intake and Output Vital Signs (last 24 hours): Temp Pulse Resp BP Pulse Ox 98.2 F 74 27 H 155/80 H 95 05/07/18 20:00 05/07/18 20:00 05/07/18 20:00 05/07/18 19:56 05/07/18 20:00 Intake and Output: 05/07/18 05/08/18 18:59 06:59 Intake Total 660 Output Total 830 250 Balance -170 -250 - Medications Medications: Current Medications Acetaminophen (Tylenol 325mg Tab) 650 mg PO Q6 PRN PRN Reason: Pain, Mild (1-3) Last Admin: 05/07/18 20:25 Dose: 650 mg Enoxaparin Sodium (Lovenox) 30 mg SC DAILY [facility] Last Admin: 05/07/18 09:26 Dose: 30 mg Famotidine (Pepcid) 20 mg PO DAILY [facility] Last Admin: 05/07/18 09:27 Dose: 20 mg Fluconazole (Diflucan) 100 mg PO DAILY [facility] PRN Reason: Protocol Last Admin: 05/07/18 09:50 Dose: 100 mg Home Med (Home Med) 1 unit PO BID [facility] Hydroxyurea (Hydrea) 500 mg PO BID [facility] Last Admin: 05/07/18 17:58 Dose: 500 mg Ondansetron HCl (Zofran Inj) 4 mg IVP Q6H PRN PRN Reason: Nausea/Vomiting Last Admin: 05/07/18 14:18 Dose: 4 mg Potassium Chloride (Klor-Con 10) 10 meq PO BRK [facility] Last Admin: 05/07/18 08:31 Dose: Not Given Propranolol HCl (Inderal) 20 mg PO TID [facility] Last Admin: 05/07/18 17:57 Dose: 20 mg - Labs Labs: 05/07/18 06:33 05/07/18 06:33 PT 16.9 SECONDS (9.7-12.2) H 05/06/18 12:09 INR 1.5 05/06/18 12:09 APTT 32 SECONDS (21-34) 05/06/18 12:09 - Head Exam Head Exam: ATRAUMATIC - Eye Exam Eye Exam: Normal appearance - ENT Exam ENT Exam: Mucous Membranes Dry - Respiratory Exam Respiratory Exam: NORMAL BREATHING PATTERN - Cardiovascular Exam Cardiovascular Exam: +S1, +S2 - GI/Abdominal Exam GI & Abdominal Exam: Normal Bowel Sounds Assessment and Plan (1) Leucocytosis Assessment & Plan: risisng restarted Jakafi and Hydrea Status: Acute (2) Thrombocytopenia Assessment & Plan: secondary to myelofibrosis Status: Acute (3) Hepatosplenomegaly Assessment & Plan: secondary to myelofibrosis Status: Acute (4) Anemia Assessment & Plan: secondary to myelofibrosis chronic disease Status: Acute (5) DVT (deep venous thrombosis) Assessment & Plan: provoked on anticoagulation Status: Acute (6) Myelofibrosis Assessment & Plan: Jakafi and hydrea Status: Acute
--- NOTE | 2018-05-08 00:03 | CP.PCM.PN ---
Subjective - Date & Time of Evaluation Date of Evaluation: 05/05/18 Time of Evaluation: 19:00 - Subjective Subjective: Has abdominal pain, WBC rising For bone marrow biopsy in AM to rule out transformation of myelofibrosis to acute leukemia Objective - Vital Signs/Intake and Output Vital Signs (last 24 hours): Temp Pulse Resp BP Pulse Ox 98.2 F 74 27 H 155/80 H 95 05/07/18 20:00 05/07/18 20:00 05/07/18 20:00 05/07/18 19:56 05/07/18 20:00 Intake and Output: 05/07/18 05/08/18 18:59 06:59 Intake Total 660 Output Total 830 250 Balance -170 -250 - Medications Medications: Current Medications Acetaminophen (Tylenol 325mg Tab) 650 mg PO Q6 PRN PRN Reason: Pain, Mild (1-3) Last Admin: 05/07/18 20:25 Dose: 650 mg Enoxaparin Sodium (Lovenox) 30 mg SC DAILY [facility] Last Admin: 05/07/18 09:26 Dose: 30 mg Famotidine (Pepcid) 20 mg PO DAILY [facility] Last Admin: 05/07/18 09:27 Dose: 20 mg Fluconazole (Diflucan) 100 mg PO DAILY [facility] PRN Reason: Protocol Last Admin: 05/07/18 09:50 Dose: 100 mg Home Med (Home Med) 1 unit PO BID [facility] Hydroxyurea (Hydrea) 500 mg PO BID [facility] Last Admin: 05/07/18 17:58 Dose: 500 mg Ondansetron HCl (Zofran Inj) 4 mg IVP Q6H PRN PRN Reason: Nausea/Vomiting Last Admin: 05/07/18 14:18 Dose: 4 mg Potassium Chloride (Klor-Con 10) 10 meq PO BRK [facility] Last Admin: 05/07/18 08:31 Dose: Not Given Propranolol HCl (Inderal) 20 mg PO TID [facility] Last Admin: 05/07/18 17:57 Dose: 20 mg - Labs Labs: 05/07/18 06:33 05/07/18 06:33 PT 16.9 SECONDS (9.7-12.2) H 05/06/18 12:09 INR 1.5 05/06/18 12:09 APTT 32 SECONDS (21-34) 05/06/18 12:09 - Head Exam Head Exam: ATRAUMATIC - Eye Exam Eye Exam: Normal appearance - ENT Exam ENT Exam: Mucous Membranes Dry - Respiratory Exam Respiratory Exam: NORMAL BREATHING PATTERN - Cardiovascular Exam Cardiovascular Exam: +S1, +S2 - GI/Abdominal Exam GI & Abdominal Exam: Normal Bowel Sounds Assessment and Plan (1) Leucocytosis Status: Acute (2) Thrombocytopenia Status: Acute (3) Hepatosplenomegaly Status: Acute (4) Anemia Status: Acute (5) DVT (deep venous thrombosis) Status: Acute (6) Myelofibrosis Status: Acute
--- NOTE | 2018-05-08 00:04 | CP.PCM.PN ---
Subjective - Date & Time of Evaluation Date of Evaluation: 05/06/18 Time of Evaluation: 12:00 - Subjective Subjective: Splenic hemorrhage noted s/p IR embolization likely cause of rising WBC cont. Jakafi and Hydrea anticoagulation stopped Objective - Vital Signs/Intake and Output Vital Signs (last 24 hours): Temp Pulse Resp BP Pulse Ox 98.2 F 74 27 H 155/80 H 95 05/07/18 20:00 05/07/18 20:00 05/07/18 20:00 05/07/18 19:56 05/07/18 20:00 Intake and Output: 05/07/18 05/08/18 18:59 06:59 Intake Total 660 Output Total 830 250 Balance -170 -250 - Medications Medications: Current Medications Acetaminophen (Tylenol 325mg Tab) 650 mg PO Q6 PRN PRN Reason: Pain, Mild (1-3) Last Admin: 05/07/18 20:25 Dose: 650 mg Enoxaparin Sodium (Lovenox) 30 mg SC DAILY [facility] Last Admin: 05/07/18 09:26 Dose: 30 mg Famotidine (Pepcid) 20 mg PO DAILY [facility] Last Admin: 05/07/18 09:27 Dose: 20 mg Fluconazole (Diflucan) 100 mg PO DAILY [facility] PRN Reason: Protocol Last Admin: 05/07/18 09:50 Dose: 100 mg Home Med (Home Med) 1 unit PO BID [facility] Hydroxyurea (Hydrea) 500 mg PO BID [facility] Last Admin: 05/07/18 17:58 Dose: 500 mg Ondansetron HCl (Zofran Inj) 4 mg IVP Q6H PRN PRN Reason: Nausea/Vomiting Last Admin: 05/07/18 14:18 Dose: 4 mg Potassium Chloride (Klor-Con 10) 10 meq PO BRK [facility] Last Admin: 05/07/18 08:31 Dose: Not Given Propranolol HCl (Inderal) 20 mg PO TID [facility] Last Admin: 05/07/18 17:57 Dose: 20 mg - Labs Labs: 05/07/18 06:33 05/07/18 06:33 PT 16.9 SECONDS (9.7-12.2) H 05/06/18 12:09 INR 1.5 05/06/18 12:09 APTT 32 SECONDS (21-34) 05/06/18 12:09 - Head Exam Head Exam: ATRAUMATIC - Eye Exam Eye Exam: Normal appearance - ENT Exam ENT Exam: Mucous Membranes Dry - Respiratory Exam Respiratory Exam: NORMAL BREATHING PATTERN - Cardiovascular Exam Cardiovascular Exam: +S1, +S2 - GI/Abdominal Exam GI & Abdominal Exam: Normal Bowel Sounds Assessment and Plan (1) Leucocytosis Status: Acute (2) Thrombocytopenia Status: Acute (3) Hepatosplenomegaly Status: Acute (4) Anemia Status: Acute (5) DVT (deep venous thrombosis) Status: Acute (6) Myelofibrosis Status: Acute
--- NOTE | 2018-05-08 00:06 | CP.PCM.PN ---
Subjective - Date & Time of Evaluation Date of Evaluation: 05/07/18 Time of Evaluation: 20:00 - Subjective Subjective: Feeling better, family at bedside Jakafi and Hydrea WBC improving prophylactic anticoagulation Objective - Vital Signs/Intake and Output Vital Signs (last 24 hours): Temp Pulse Resp BP Pulse Ox 98.2 F 74 27 H 155/80 H 95 05/07/18 20:00 05/07/18 20:00 05/07/18 20:00 05/07/18 19:56 05/07/18 20:00 Intake and Output: 05/07/18 05/08/18 18:59 06:59 Intake Total 660 Output Total 830 250 Balance -170 -250 - Medications Medications: Current Medications Acetaminophen (Tylenol 325mg Tab) 650 mg PO Q6 PRN PRN Reason: Pain, Mild (1-3) Last Admin: 05/07/18 20:25 Dose: 650 mg Enoxaparin Sodium (Lovenox) 30 mg SC DAILY [facility] Last Admin: 05/07/18 09:26 Dose: 30 mg Famotidine (Pepcid) 20 mg PO DAILY [facility] Last Admin: 05/07/18 09:27 Dose: 20 mg Fluconazole (Diflucan) 100 mg PO DAILY [facility] PRN Reason: Protocol Last Admin: 05/07/18 09:50 Dose: 100 mg Home Med (Home Med) 1 unit PO BID [facility] Hydroxyurea (Hydrea) 500 mg PO BID [facility] Last Admin: 05/07/18 17:58 Dose: 500 mg Ondansetron HCl (Zofran Inj) 4 mg IVP Q6H PRN PRN Reason: Nausea/Vomiting Last Admin: 05/07/18 14:18 Dose: 4 mg Potassium Chloride (Klor-Con 10) 10 meq PO BRK [facility] Last Admin: 05/07/18 08:31 Dose: Not Given Propranolol HCl (Inderal) 20 mg PO TID [facility] Last Admin: 05/07/18 17:57 Dose: 20 mg - Labs Labs: 05/07/18 06:33 05/07/18 06:33 PT 16.9 SECONDS (9.7-12.2) H 05/06/18 12:09 INR 1.5 05/06/18 12:09 APTT 32 SECONDS (21-34) 05/06/18 12:09 - Head Exam Head Exam: ATRAUMATIC - Eye Exam Eye Exam: Normal appearance - ENT Exam ENT Exam: Mucous Membranes Dry - Respiratory Exam Respiratory Exam: NORMAL BREATHING PATTERN - Cardiovascular Exam Cardiovascular Exam: +S1, +S2 - GI/Abdominal Exam GI & Abdominal Exam: Normal Bowel Sounds Assessment and Plan (1) Leucocytosis Status: Acute (2) Thrombocytopenia Status: Acute (3) Hepatosplenomegaly Status: Acute (4) Anemia Status: Acute (5) DVT (deep venous thrombosis) Status: Acute (6) Myelofibrosis Status: Acute
[2018-05-08 06:31] LABS: BASO # 0.2 K/uL (0.0-0.2); BASO % 0.4 % (0.0-2.0); EOS # 0.7 K/uL (0.0-0.7); EOS % 1.1 % (0.0-4.0); HEMOGLOBIN 9.1 g/dL (11.0-16.0); LYMPH # 2.9 K/uL (1.0-4.3); LYMPH % 4.6 % (20.0-40.0); MEAN CELL VOLUME 89.8 fL (81.0-99.0); MEAN CORPUSCULAR HEMOGLOBIN 28.3 pg (27.0-31.0); MEAN CORPUSCULAR HGB CONC 31.5 g/dL (33.0-37.0); MEAN PLATELET VOLUME 12.8 fL (7.2-11.7); MONO # 5.9 K/uL (0.0-0.8); MONO % 9.5 % (0.0-10.0); NEUT # 52.1 K/uL (1.8-7.0); NEUT % 84.4 % (50.0-75.0); NRBC % 3.6 % (0.0-2.0); PLATELET COUNT 81 K/uL (130-400); RED CELL DISTRIBUTION WIDTH 18.5 % (11.5-14.5)
[2018-05-08 06:40] LABS: WHITE BLOOD COUNT 61.7 K/uL (4.8-10.8)
[2018-05-08 06:54] LABS: ALBUMIN 2.7 g/dL (3.5-5.0); CALCIUM 7.2 mg/dl (8.6-10.4)
[2018-05-08 08:29] LABS: ANISOCYTOSIS MODERATE; BANDS 11 % (0-2); LYMPHOCYTE 3 % (20-40); METAMYELOCYTE 4 % (0-0); MONOCYTE 6 % (0-10); MYELOCYTE 2 % (0-0); NEUTROPHIL 74 % (50-75); NUCLEATED RED BLOOD CELL 4 % (0-0); PLATELET ESTIMATE DECREASED (NORMAL); TOTAL CELLS COUNTED 100
[2018-05-08 08:30] LABS: GIANT PLATELETS PRESENT; HYPOCHROMIC SLIGHT; LARGE PLATELETS PRESENT; OVALOCYTES SLIGHT; POIKILOCYTOSIS SLIGHT
[2018-05-08] MEDS: Potassium Chloride 10 mEq ER Tab PO SCH (08:30)
[2018-05-08 08:31] LABS: POLYCHROMIC SLIGHT
[2018-05-08] MEDS: Enoxaparin 30 mg Syringe SC SCH (09:32)
[2018-05-08] MEDS ORDERED: Home Med 1 UNIT PO SCH (10:00)
--- NOTE | 2018-05-08 10:33 | CP.PCM.PN ---
Subjective - Date & Time of Evaluation Date of Evaluation: 05/08/18 Time of Evaluation: 08:00 - Subjective Subjective: f/u abdom pain. Has had some abdom ronaldo since yest in mid upper abdomen. Denies Rb, melena, fever, chills, SZ, HILL, LOC, SOB Objective - Vital Signs/Intake and Output Vital Signs (last 24 hours): Temp Pulse Resp BP Pulse Ox 98.5 F 74 13 151/75 H 94 L 05/08/18 04:00 05/08/18 05:00 05/08/18 05:00 05/08/18 04:57 05/08/18 05:00 Intake and Output: 05/08/18 05/08/18 06:59 18:59 Intake Total 100 Output Total 925 Balance -825 - Medications Medications: Current Medications Acetaminophen (Tylenol 325mg Tab) 650 mg PO Q6 PRN PRN Reason: Pain, Mild (1-3) Last Admin: 05/08/18 02:35 Dose: 650 mg Enoxaparin Sodium (Lovenox) 30 mg SC DAILY [facility] Last Admin: 05/08/18 09:32 Dose: 30 mg Famotidine (Pepcid) 20 mg PO DAILY [facility] Last Admin: 05/08/18 09:28 Dose: 20 mg Fluconazole (Diflucan) 100 mg PO DAILY [facility] PRN Reason: Protocol Last Admin: 05/08/18 09:49 Dose: 100 mg Home Med (Home Med) 1 unit PO BID [facility] Hydroxyurea (Hydrea) 500 mg PO BID [facility] Last Admin: 05/08/18 09:27 Dose: 500 mg Morphine Sulfate (Morphine) 2 mg IV Q4H PRN PRN Reason: Pain, moderate (4-7) Last Admin: 05/08/18 09:55 Dose: 2 mg Ondansetron HCl (Zofran Inj) 4 mg IVP Q6H PRN PRN Reason: Nausea/Vomiting Last Admin: 05/07/18 14:18 Dose: 4 mg Potassium Chloride (Klor-Con 10) 10 meq PO BRK [facility] Last Admin: 05/08/18 08:30 Dose: 10 meq Propranolol HCl (Inderal) 20 mg PO TID [facility] Last Admin: 05/08/18 09:27 Dose: 20 mg - Labs Labs: 05/08/18 06:17 05/08/18 06:17 PT 16.9 SECONDS (9.7-12.2) H 05/06/18 12:09 INR 1.5 05/06/18 12:09 APTT 32 SECONDS (21-34) 05/06/18 12:09 - Constitutional Appears: Non-toxic - Respiratory Exam Respiratory Exam: Clear to Ausculation Bilateral - GI/Abdominal Exam GI & Abdominal Exam: Soft, Normal Bowel Sounds. 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
--- NOTE | 2018-05-08 11:21 | CP.CCUPN ---
<Mani Melo - Last Filed: 05/08/18 15:42> CCU Subjective - Physician Review Subjective (Free Text): Critical care progress note: Pt seen and examined at bedside. No acute events overnight. Patient complains of some L sided abdominal pain, no n/v/d. No other complaints. 12 Point ROS performed and neg other than stated above. CCU Objective - Vital Signs / Intake & Output Intake and Output (Last 8hrs): Intake & Output 05/07/18 05/08/18 05/08/18 22:59 06:59 14:59 Intake Total 400 100 Output Total 575 475 Balance -175 -375 Weight 181 lb Intake: Oral 400 100 Output: Urine 575 475 Urine, Voided 575 475 Other: # Voids Urine, Voided 1 # Bowel Movements 1 - Physical Exam Head: Positive for: Atraumatic, Normocephalic Pupils: Positive for: PERRL Extroacular Muscles: Positive for: EOMI Mouth: Positive for: Moist Mucous Membranes Respiratory/Chest: Positive for: Decreased Breath Sounds. Negative for: Respiratory Distress Cardiovascular: Positive for: Regular Rate and Rhythm, Normal S1, S2 Abdomen: Positive for: Tenderness (L sided ), Normal Bowel Sounds, Other ( Enlarged liver palpable). Negative for: Distention, Peritoneal Signs, Guarding Back: Negative for: CVA Tenderness Upper Extremity: Positive for: NORMAL PULSES, Capillary Refill < 2s. Negative for: Cyanosis, Edema Lower Extremity: Positive for: NORMAL PULSES. Negative for: Edema, CALF TENDERNESS Neurological: Positive for: GCS=15, CN II-XII Intact Skin: Positive for: Warm, Dry, Normal Color Psychiatric: Positive for: Alert, Oriented x 3 - Medications Active Medications: Active Medications Generic Name Dose Route Start Last Admin Trade Name Freq PRN Reason Stop Dose Admin Acetaminophen 650 mg 04/26/18 17:00 05/08/18 02:35 Tylenol 325mg Tab PO 650 mg Q6 PRN Administration Pain, Mild (1-3) Enoxaparin Sodium 30 mg 05/07/18 10:00 05/08/18 09:32 Lovenox SC 30 mg DAILY [facility] Administration Famotidine 20 mg 04/27/18 10:00 05/08/18 09:28 Pepcid PO 20 mg DAILY [facility] Administration Fluconazole 100 mg 05/07/18 10:05/08/18 09:49 Diflucan PO 100 mg DAILY [facility] Administration Protocol Home Med 1 unit 05/08/18 10:00 Home Med PO BID [facility] Hydroxyurea 500 mg 05/04/18 18:00 05/08/18 09:27 Hydrea PO 500 mg BID [facility] Administration Morphine Sulfate 2 mg 05/08/18 00:36 05/08/18 09:55 Morphine IV 2 mg Q4H PRN Administration Pain, moderate (4-7) Ondansetron HCl 4 mg 05/06/18 12:00 05/07/18 14:18 Zofran Inj IVP 4 mg Q6H PRN Administration Nausea/Vomiting Potassium Chloride 10 meq 04/28/18 18:15 05/08/18 08:30 Klor-Con 10 PO 10 meq BRK [facility] Administration Propranolol HCl 20 mg 05/01/18 19:15 05/08/18 09:27 Inderal PO 20 mg TID [facility] Administration - Patient Studies Lab Studies: Lab Studies 05/08/18 05/08/18 05/05/18 Range/Units 06:17 06:17 14:39 WBC 61.7 H* (4.8-10.8) K/uL RBC 3.20 L (3.80-5.20) Mil/uL Hgb 9.1 L (11.0-16.0) g/dL Hct 28.7 L (34.0-47.0) % MCV 89.8 (81.0-99.0) fL MCH 28.3 (27.0-31.0) pg MCHC 31.5 L (33.0-37.0) g/dL RDW 18.5 H (11.5-14.5) % Plt Count 81 L (130-400) K/uL MPV 12.8 H (7.2-11.7) fL Neut % (Auto) 84.4 H (50.0-75.0) % Lymph % (Auto) 4.6 L (20.0-40.0) % [place] % (Auto) 9.5 (0.0-10.0) % Eos % (Auto) 1.1 (0.0-4.0) % Baso % (Auto) 0.4 (0.0-2.0) % Neut # (Auto) 52.1 H (1.8-7.0) K/uL Lymph # (Auto) 2.9 (1.0-4.3) K/uL [place] # (Auto) 5.9 H (0.0-0.8) K/uL Eos # (Auto) 0.7 (0.0-0.7) K/uL Baso # (Auto) 0.2 (0.0-0.2) K/uL Neutrophils % (Manual) 74 (50-75) % Band Neutrophils % 11 H* (0-2) % Lymphocytes % (Manual) 3 L (20-40) % Monocytes % (Manual) 6 (0-10) % Metamyelocytes % 4 H (0-0) % Myelocytes % 2 H (0-0) % Nucleated RBC % 4 H (0-0) % Platelet Estimate Decreased L (NORMAL) Large Platelets Present Giant Platelets Present Polychromasia Slight Hypochromasia (manual) Slight Poikilocytosis (manual Slight Anisocytosis (manual) Moderate Ovalocytes Slight Sodium 137 (132-148) mmol/L Potassium 5.0 (3.6-5.2) mmol/L Chloride 106 (98-107) mmol/L Carbon Dioxide 22 (22-30) mmol/L Anion Gap 14 (10-20) BUN 50 H (7-17) mg/dL Creatinine 2.0 H (0.7-1.2) mg/dL Est GFR ( Amer) 30 Est GFR (Non-Af Amer) 25 Random Glucose 103 (65-105) mg/dL Calcium 7.2 L (8.6-10.4) mg/dl Phosphorus 6.0 H (2.5-4.5) mg/dL Magnesium 2.0 (1.6-2.3) mg/dL Total Bilirubin 0.7 (0.2-1.3) mg/dL AST 26 (14-36) U/L ALT 27 (9-52) U/L Alkaline Phosphatase 88 (38-126) U/L Total Protein 5.5 L (6.3-8.3) g/dL Albumin 2.7 L (3.5-5.0) g/dL Globulin 2.8 (2.2-3.9) gm/dL Albumin/Globulin Ratio 1.0 (1.0-2.1) Stool Occult Blood Negative (NEGATIVE) Laboratory Results - last 24 hr 05/05/18 05/08/18 05/08/18 14:39 06:17 06:17 WBC 61.7 H* RBC 3.20 L Hgb 9.1 L Hct 28.7 L MCV 89.8 MCH 28.3 MCHC 31.5 L RDW 18.5 H Plt Count 81 L MPV 12.8 H Neut % (Auto) 84.4 H Lymph % (Auto) 4.[address] [place] % (Auto) 9.5 Eos % (Auto) 1.1 Baso % (Auto) 0.4 Neut # (Auto) 52.1 H Lymph # (Auto) 2.9 [place] # (Auto) 5.9 H Eos # (Auto) 0.7 Baso # (Auto) 0.2 Neutrophils % (Manual) 74 Band Neutrophils % 11 H* Lymphocytes % (Manual) 3 L Monocytes % (Manual) 6 Metamyelocytes % 4 H Myelocytes % 2 H Nucleated RBC % 4 H Platelet Estimate Decreased L Large Platelets Present Giant Platelets Present Polychromasia Slight Hypochromasia (manual) Slight Poikilocytosis (manual Slight Anisocytosis (manual) Moderate Ovalocytes Slight Sodium 137 Potassium 5.0 Chloride 106 Carbon Dioxide 22 Anion Gap 14 BUN 50 H Creatinine 2.0 H Est GFR ( Amer) 30 Est GFR (Non-Af Amer) 25 Random Glucose 103 Calcium 7.2 L Phosphorus 6.0 H Magnesium 2.0 Total Bilirubin 0.7 AST 26 ALT 27 Alkaline Phosphatase 88 Total Protein 5.5 L Albumin 2.7 L Globulin 2.8 Albumin/Globulin Ratio 1.0 Stool Occult Blood Negative Review of Systems - Review of Systems All systems: reviewed and no additional remarkable complaints except Critical Care Progress Note - Nutrition Nutrition: Nutrition Category Date Time Status Heart Healthy Diet [DIET] Diets 04/30/18 Breakfast Active Assessment/Plan - Assessment and Plan (Free Text) Assessment: 67 year old female with history of arthritis, HTN, myelofibrosis with chronic leukocytosis who was admitted for right flank pain following failed outpatient treatment of pyelonephritis. CT revealed right hydroureteronephrosis with ureteral stricture, and she is s/p ureteral stent insertion by Dr. Irvin on 04/25/18. Patient developed Atrial fibrillation, currently on PO Cardizem. RLE DVT, on Eliquis. Patient complains of left lower quadrant pain. CT abdomen showing acute hemorrhagic process emanating from the spleen s/p IR embolectomy of splenic a POD 2. Neuro: AAO x 3 Pain control Pulm: Nasal cannula as tolerated Maintain SPO2 > 92 % CV: Currently hemodynamically stable Cardiology Dr. Alex consulted, help appreciated Eliquis held 2/2 acute hemorrhagic process emanating from the spleen ECHO Left ventricle systolic function is normal. EF 65-70%. Moderate pulmonary HTN Dopplers: Acute thrombosis of right gastrocnemius vein with severe reduction of venous return. off of eliquis 2/2 acute hemorrhagic process emanating from the spleen VQ scan Low probability for pulmonary embolism. F/u Arterial doppler of right femoral access site to r/o pseudoaneurysm. GI: Pepcid 20mg PO daily Continue Inderal 20mg TID 05/06 CT abdomen showed acute hemorrhagic process emanating from the spleen S/p embolization of splenic artery by IR Dr. Horne Arterial doppler ordered to r/o pseudoaneurysm Renal: Monitor I and O Replete electrolytes as needed Urology Dr Flor Irvin consulted Heme: Hx of myelofibrosis with chronic leukocytosis Dr. Mcbride consulted, help appreciated Transfused 2 Units of PRBC Eliquis held due to spleenic hemorrhage Hb 9.1 Continue Hydrea 500mg BID ID: Afebrile and Wbc dec to 61.[address] Jackson consulted, help appreciated Cont Fluconazole 100mg PO Urine culture + yeast Endo: Maintain euglycemia PPX: Lovenox, Pepcid Case and plan was revewed and discussed with Dr Ling. <Main Ling - Last Filed: 05/08/18 20:38> CCU Objective - Vital Signs / Intake & Output Vital Signs (Last 4 hours): Vital Signs Pulse Resp BP Pulse Ox 05/08/18 18:57 80 36 H 135/78 93 L 05/08/18 17:57 85 32 H 138/77 87 L 05/08/18 16:57 83 33 H 148/72 97 Intake and Output (Last 8hrs): Intake & Output 05/08/18 05/08/18 05/08/18 06:59 14:59 22:59 Intake Total 100 450 300 Output Total 475 1100 450 Balance -375 -650 -150 Weight 181 lb Intake: Oral 100 450 300 Output: Urine 475 1100 450 Urine, Voided 475 1100 450 - Medications Active Medications: Active Medications Generic Name Dose Route Start Last Admin Trade Name Freq PRN Reason Stop Dose Admin Acetaminophen 650 mg 04/26/18 17:00 05/08/18 02:35 Tylenol 325mg Tab PO 650 mg Q6 PRN Administration Pain, Mild (1-3) Enoxaparin Sodium 30 mg 05/07/18 10:00 05/08/18 09:32 Lovenox SC 30 mg DAILY [facility] Administration Famotidine 20 mg 04/27/18 10:00 05/08/18 09:28 Pepcid PO 20 mg DAILY [facility] Administration Fluconazole 100 mg 05/07/18 10:00 05/08/18 09:49 Diflucan PO 100 mg DAILY [facility] Administration Protocol Hydroxyurea 500 mg 05/04/18 18:00 05/08/18 17:37 Hydrea PO 500 mg BID [facility] Administration Morphine Sulfate 2 mg 05/08/18 00:36 05/08/18 09:55 Morphine IV 2 mg Q4H PRN Administration Pain, moderate (4-7) Ondansetron HCl 4 mg 05/06/18 12:00 05/07/18 14:18 Zofran Inj IVP 4 mg Q6H PRN Administration Nausea/Vomiting Potassium Chloride 10 meq 04/28/18 18:15 05/08/18 08:30 Klor-Con 10 PO 10 meq BRK [facility] Administration Propranolol HCl 20 mg 05/01/18 19:15 05/08/18 17:37 Inderal PO 20 mg TID [facility] Administration - Patient Studies Lab Studies: Lab Studies 05/08/18 05/08/18 05/05/18 Range/Units 06:17 06:17 14:39 WBC 61.7 H* (4.8-10.8) K/uL RBC 3.20 L (3.80-5.20) Mil/uL Hgb 9.1 L (11.0-16.0) g/dL Hct 28.7 L (34.0-47.0) % MCV 89.8 (81.0-99.0) fL MCH 28.3 (27.0-31.0) pg MCHC 31.5 L (33.0-37.0) g/dL RDW 18.5 H (11.5-14.5) % Plt Count 81 L (130-400) K/uL MPV 12.8 H (7.2-11.7) fL Neut % (Auto) 84.4 H (50.0-75.0) % Lymph % (Auto) 4.6 L (20.0-40.0) % [place] % (Auto) 9.5 (0.0-10.0) % Eos % (Auto) 1.1 (0.0-4.0) % Baso % (Auto) 0.4 (0.0-2.0) % Neut # (Auto) 52.1 H (1.8-7.0) K/uL Lymph # (Auto) 2.9 (1.0-4.3) K/uL [place] # (Auto) 5.9 H (0.0-0.8) K/uL Eos # (Auto) 0.7 (0.0-0.7) K/uL Baso # (Auto) 0.2 (0.0-0.2) K/uL Neutrophils % (Manual) 74 (50-75) % Band Neutrophils % 11 H* (0-2) % Lymphocytes % (Manual) 3 L (20-40) % Monocytes % (Manual) 6 (0-10) % Metamyelocytes % 4 H (0-0) % Myelocytes % 2 H (0-0) % Nucleated RBC % 4 H (0-0) % Platelet Estimate Decreased L (NORMAL) Large Platelets Present Giant Platelets Present Polychromasia Slight Hypochromasia (manual) Slight Poikilocytosis (manual Slight Anisocytosis (manual) Moderate Ovalocytes Slight Sodium 137 (132-148) mmol/L Potassium 5.0 (3.6-5.2) mmol/L Chloride 106 (98-107) mmol/L Carbon Dioxide 22 (22-30) mmol/L Anion Gap 14 (10-20) BUN 50 H (7-17) mg/dL Creatinine 2.0 H (0.7-1.2) mg/dL Est GFR ( Amer) 30 Est GFR (Non-Af Amer) 25 Random Glucose 103 (65-105) mg/dL Calcium 7.2 L (8.6-10.4) mg/dl Phosphorus 6.0 H (2.5-4.5) mg/dL Magnesium 2.0 (1.6-2.3) mg/dL Total Bilirubin 0.7 (0.2-1.3) mg/dL AST 26 (14-36) U/L ALT 27 (9-52) U/L Alkaline Phosphatase 88 (38-126) U/L Total Protein 5.5 L (6.3-8.3) g/dL Albumin 2.7 L (3.5-5.0) g/dL Globulin 2.8 (2.2-3.9) gm/dL Albumin/Globulin Ratio 1.0 (1.0-2.1) Stool Occult Blood Negative (NEGATIVE) Laboratory Results - last 24 hr 05/05/18 05/08/18 05/08/18 14:39 06:17 06:17 WBC 61.7 H* RBC 3.20 L Hgb 9.1 L Hct 28.7 L MCV 89.8 MCH 28.3 MCHC 31.5 L RDW 18.5 H Plt Count 81 L MPV 12.8 H Neut % (Auto) 84.4 H Lymph % (Auto) 4.[address] [place] % (Auto) 9.5 Eos % (Auto) 1.1 Baso % (Auto) 0.4 Neut # (Auto) 52.1 H Lymph # (Auto) 2.9 [place] # (Auto) 5.9 H Eos # (Auto) 0.7 Baso # (Auto) 0.2 Neutrophils % (Manual) 74 Band Neutrophils % 11 H* Lymphocytes % (Manual) 3 L Monocytes % (Manual) 6 Metamyelocytes % 4 H Myelocytes % 2 H Nucleated RBC % 4 H Platelet Estimate Decreased L Large Platelets Present Giant Platelets Present Polychromasia Slight Hypochromasia (manual) Slight Poikilocytosis (manual Slight Anisocytosis (manual) Moderate Ovalocytes Slight Sodium 137 Potassium 5.0 Chloride 106 Carbon Dioxide 22 Anion Gap 14 BUN 50 H Creatinine 2.0 H Est GFR ( Amer) 30 Est GFR (Non-Af Amer) 25 Random Glucose 103 Calcium 7.2 L Phosphorus 6.0 H Magnesium 2.0 Total Bilirubin 0.7 AST 26 ALT 27 Alkaline Phosphatase 88 Total Protein 5.5 L Albumin 2.7 L Globulin 2.8 Albumin/Globulin Ratio 1.0 Stool Occult Blood Negative Critical Care Progress Note - Nutrition Nutrition: Nutrition Category Date Time Status Heart Healthy Diet [DIET] Diets 04/30/18 Breakfast Active Attending/Attestation - Attestation I have personally seen and examined this patient.: Yes I have fully participated in the care of the patient.: Yes I have reviewed all pertinent clinical information: Yes Notes (Text): 05/08/18 20:38 The patient was Seen/interviewed and examined by me at the bedside during ICU round, Medical records reviewed and Management issues were discussed and formulated with the house staff. Events reviewed I have reviewed all the relevant clinical, laboratory, hemodynamic, radiographic data and medications Pain issues, skin care, head of the bed elevation, glycemic control were addressed. I concur with resident's assessment and plan of care as transcribed in Dr. Melo note.
--- NOTE | 2018-05-08 15:31 | CP.PCM.PN ---
Subjective - Date & Time of Evaluation Date of Evaluation: 05/08/18 Time of Evaluation: 10:05 - Subjective Subjective: Cardiology progress note (Dr. Pickering covering Dr. Alex's service) Patient was seen and examined at bedside. Patient was resting comfortably in bed in no acute distress. Patient denies any cardiac symptoms such as chest pain , palpitations, SOB, dizziness, lightheadedness but still admits to left upper quadrant discomfort. Objective - Vital Signs/Intake and Output Vital Signs (last 24 hours): Temp Pulse Resp BP Pulse Ox 97.8 F 82 31 H 135/69 88 L 05/08/18 12:00 05/08/18 12:57 05/08/18 12:57 05/08/18 12:57 05/08/18 12:57 Intake and Output: 05/08/18 05/08/18 06:59 18:59 Intake Total 100 450 Output Total 925 1000 Balance -825 -550 - Medications Medications: Current Medications Acetaminophen (Tylenol 325mg Tab) 650 mg PO Q6 PRN PRN Reason: Pain, Mild (1-3) Last Admin: 05/08/18 02:35 Dose: 650 mg Enoxaparin Sodium (Lovenox) 30 mg SC DAILY [facility] Last Admin: 05/08/18 09:32 Dose: 30 mg Famotidine (Pepcid) 20 mg PO DAILY [facility] Last Admin: 05/08/18 09:28 Dose: 20 mg Fluconazole (Diflucan) 100 mg PO DAILY [facility] PRN Reason: Protocol Last Admin: 05/08/18 09:49 Dose: 100 mg Hydroxyurea (Hydrea) 500 mg PO BID [facility] Last Admin: 05/08/18 09:27 Dose: 500 mg Morphine Sulfate (Morphine) 2 mg IV Q4H PRN PRN Reason: Pain, moderate (4-7) Last Admin: 05/08/18 09:55 Dose: 2 mg Ondansetron HCl (Zofran Inj) 4 mg IVP Q6H PRN PRN Reason: Nausea/Vomiting Last Admin: 05/07/18 14:18 Dose: 4 mg Potassium Chloride (Klor-Con 10) 10 meq PO BRK [facility] Last Admin: 05/08/18 08:30 Dose: 10 meq Propranolol HCl (Inderal) 20 mg PO TID [facility] Last Admin: 05/08/18 09:27 Dose: 20 mg - Labs Labs: 05/08/18 06:17 05/08/18 06:17 PT 16.9 SECONDS (9.7-12.2) H 05/06/18 12:09 INR 1.5 05/06/18 12:09 APTT 32 SECONDS (21-34) 05/06/18 12:09 - Constitutional Appears: No Acute Distress - Head Exam Head Exam: ATRAUMATIC - Eye Exam Eye Exam: EOMI - ENT Exam ENT Exam: Mucous Membranes Moist - Respiratory Exam Respiratory Exam: NORMAL BREATHING PATTERN - Cardiovascular Exam Cardiovascular Exam: REGULAR RHYTHM, +S1, +S2 - GI/Abdominal Exam GI & Abdominal Exam: Soft, Normal Bowel Sounds. absent: Distended, Firm, Guarding, Rigid, Tenderness - Extremities Exam Extremities Exam: absent: Calf Tenderness, Pedal Edema - Neurological Exam Neurological Exam: Alert, Awake, Oriented x3 - Psychiatric Exam Psychiatric exam: Flat Affect Assessment and Plan (1) Atrial fibrillation, new onset Assessment & Plan: Patient is a 67 year old female with past medical history hypertension, myelofibrosis, chronic leukocytosis on treatment for myelofibrosis currently on treatment with hematology and oncology, Rae Jalloh, who was admitted from right flank pain and found to have a R Hydronephrosis and now s/p R ureteral stent. Cardiology consult was placed for new onset of atrial fibrillation with rapid ventricular response: Labs: - TSH: 0.53, WNL 1. Rule out PE, V/Q scan negative, D-Dimer is elevated (431), continuation with heparin drip - LE Venous doppler scan: Acute thrombosis of the right gastrocnemius with severe reduction of the venous return. No evidence of deep venous thrombosis in the left lower extremities 2. Rate controlled on Cardizem drip 125mg at 5mg/hr -> Cardizem discontinued. Currently cardizem 30mg PO QID (discontinued as patient is already on propranolol 20mg PO TID 3. V/Q scan is negative for PE, plans for possible YANI and cardioversion tomorrow 04/30/18 was cancelled due to conversion to NSR this am 4. YANI and cardioversion 04/30/18 was cancelled due to conversion to NSR 5. Eliquis 2.5mg PO BID, stopped due to possible splenic bleed on abdominal CT ( Findings suggestive of injury/trauma or acute hemorrhagic process emanating from to the spleen with new abdominal and pelvic ascites which is likely hemorrhagic.) Status: Acute (2) Splenic hemorrhage Assessment & Plan: Abdomen/Pelvis CT: Findings suggestive of injury/trauma or acute hemorrhagic process emanating from to the spleen with new abdominal and pelvic ascites which is likely hemorrhagic. IR consult, Dr. Horne on board * Angiogram showed no active bleed from spleen. Splenic artery embolization done (05/06/18) Anemia possibly secondary to splenic hemorrhage: * 7.5/25.0 * Transfusion as needed Status: Acute (3) DVT (deep venous thrombosis) Assessment & Plan: D-Dimer is elevated (431) LE Venous doppler scan: Acute thrombosis of the right gastrocnemius with severe reduction of the venous return. No evidence of deep venous thrombosis in the left lower extremities Medication: * Heparin drip (Discontinued) * Eliquis 2.5mg PO BID (discontinued due to abdominal CT findings suggestive of injury/trauma or acute hemorrhagic process emanating from to the spleen with new abdominal and pelvic ascites which is likely hemorrhagic.) Status: Acute (4) Myelofibrosis Assessment & Plan: Elevated WBC Hematoloy/Oncology, Dr. Mcbride on board -Management as per hematology/Oncology Status: Acute (5) Hepatosplenomegaly Assessment & Plan: Abdominal/ Pelvis without contrast: . Prominent carrie hepatis with extensive upper abdominal varices and splenomegaly suspicious for pattern blood flow. No gross pattern of hepatic cirrhosis. Cryptogenic cirrhosis is a possibility. Clinically correlate further. As per GI, Dr. Méndez: it is not clear whether the splenomegaly and portal HTN are from thrombosi or perhaps from underlying cirrhosis. Will start on beta sanjuanita for variceal prophylaxis, and work up for causes of chronic liver disease. Medication for variceal ppx: * Propranolol 10mg PO BID---> 20mg TID Status: Acute (6) Elevated brain natriuretic peptide (BNP) level Assessment & Plan: BNP: 15,300, Trending down Chest X-ray (04/29/18): Right-sided PICC. Moderate pulmonary venous congestion. Cardiomegaly. Ectatic aorta. Echocardiogram (04/26/18): LV function is normal. EF (65-70%). Trace aortic regurgitation and moderate pulmonary hypertension Lasix 20mg PO BID; gentle diuresis in light of SOFIA: D/C due to worsening SOFIA Status: Acute (7) Hydronephrosis, right Assessment & Plan: Abdominal/ Pelvis without contrast: Right perinephric reaction is appreciated with mild to moderate right hydroureteronephrosis potentially on the basis of distal right ureteral stricture, lucent calculus or expelled calculus. No radiodense urolithiasis identified bilaterally including urinary bladder. Left kidney appears unremarkable. S/P ureteral stent (04/25/18) Status: Acute (8) Prophylactic measure Assessment & Plan: Assessment & Plan: DVT: Eliquis 2.5mg PO BID, consideration due to splenic hemorrhage, s/p splenic artery embolization. Lovenox 30mg SC daily GI: Pepcid 20mg PO daily No further cardiology intervention at this time Will continue to follow hospital course Status: Acute
--- NOTE | 2018-05-08 16:05 | VASCLAB ---
Date of service: 05/08/2018 PROCEDURE: Right Groin Duplex Scan HISTORY: r/o pseudoaneurysm at site of right femoral COMPARISON: None available. TECHNIQUE: Grayscale and duplex Doppler evaluation of the right common femoral, proximal femoral and profunda femoral arteries. Report prepared by BERE Rowley, RVT FINDINGS: RIGHT LOWER EXTREMITY: * Common Femoral Artery: Peak Systolic Velocity - 119: Doppler Waveform: Triphasic. * Profunda Femoral Artery: Peak Systolic Velocity - 85: Doppler Waveform: Triphasic. * Femoral Artery: Proximal Segment: Peak Systolic Velocity - 113: Doppler Waveform: Triphasic. OTHER FINDINGS: Patent right common femoral vein. IMPRESSION: No evidence of pseudoaneurysm, hematoma or venous thrombosis in the right groin.
--- NOTE | 2018-05-08 16:14 | CP.PCM.PN ---
Subjective - Date & Time of Evaluation Date of Evaluation: 05/08/18 Time of Evaluation: 12:45 - Subjective Subjective: clinically same Objective - Vital Signs/Intake and Output Vital Signs (last 24 hours): Temp Pulse Resp BP Pulse Ox 97.8 F 82 31 H 135/69 88 L 05/08/18 12:00 05/08/18 12:57 05/08/18 12:57 05/08/18 12:57 05/08/18 12:57 Intake and Output: 05/08/18 05/08/18 06:59 18:59 Intake Total 100 450 Output Total 925 1000 Balance -825 -550 - Medications Medications: Current Medications Acetaminophen (Tylenol 325mg Tab) 650 mg PO Q6 PRN PRN Reason: Pain, Mild (1-3) Last Admin: 05/08/18 02:35 Dose: 650 mg Enoxaparin Sodium (Lovenox) 30 mg SC DAILY [facility] Last Admin: 05/08/18 09:32 Dose: 30 mg Famotidine (Pepcid) 20 mg PO DAILY [facility] Last Admin: 05/08/18 09:28 Dose: 20 mg Fluconazole (Diflucan) 100 mg PO DAILY [facility] PRN Reason: Protocol Last Admin: 05/08/18 09:49 Dose: 100 mg Hydroxyurea (Hydrea) 500 mg PO BID [facility] Last Admin: 05/08/18 09:27 Dose: 500 mg Morphine Sulfate (Morphine) 2 mg IV Q4H PRN PRN Reason: Pain, moderate (4-7) Last Admin: 05/08/18 09:55 Dose: 2 mg Ondansetron HCl (Zofran Inj) 4 mg IVP Q6H PRN PRN Reason: Nausea/Vomiting Last Admin: 05/07/18 14:18 Dose: 4 mg Potassium Chloride (Klor-Con 10) 10 meq PO BRK [facility] Last Admin: 05/08/18 08:30 Dose: 10 meq Propranolol HCl (Inderal) 20 mg PO TID [facility] Last Admin: 05/08/18 09:27 Dose: 20 mg - Labs Labs: 05/08/18 06:17 05/08/18 06:17 PT 16.9 SECONDS (9.7-12.2) H 05/06/18 12:09 INR 1.5 05/06/18 12:09 APTT 32 SECONDS (21-34) 05/06/18 12:09
--- NOTE | 2018-05-08 20:51 | CP.PCM.PN ---
Subjective - Date & Time of Evaluation Date of Evaluation: 05/08/18 Time of Evaluation: 20:51 Objective - Vital Signs/Intake and Output Vital Signs (last 24 hours): Temp Pulse Resp BP Pulse Ox 98.8 F 80 36 H 135/78 93 L 05/08/18 16:00 05/08/18 18:57 05/08/18 18:57 05/08/18 18:57 05/08/18 18:57 Intake and Output: 05/08/18 05/09/18 18:59 06:59 Intake Total 750 0 Output Total 1550 Balance -800 0 - Medications Medications: Current Medications Acetaminophen (Tylenol 325mg Tab) 650 mg PO Q6 PRN PRN Reason: Pain, Mild (1-3) Last Admin: 05/08/18 02:35 Dose: 650 mg Enoxaparin Sodium (Lovenox) 30 mg SC DAILY [facility] Last Admin: 05/08/18 09:32 Dose: 30 mg Famotidine (Pepcid) 20 mg PO DAILY [facility] Last Admin: 05/08/18 09:28 Dose: 20 mg Fluconazole (Diflucan) 100 mg PO DAILY [facility] PRN Reason: Protocol Last Admin: 05/08/18 09:49 Dose: 100 mg Hydroxyurea (Hydrea) 500 mg PO BID [facility] Last Admin: 05/08/18 17:37 Dose: 500 mg Morphine Sulfate (Morphine) 2 mg IV Q4H PRN PRN Reason: Pain, moderate (4-7) Last Admin: 05/08/18 09:55 Dose: 2 mg Ondansetron HCl (Zofran Inj) 4 mg IVP Q6H PRN PRN Reason: Nausea/Vomiting Last Admin: 05/07/18 14:18 Dose: 4 mg Potassium Chloride (Klor-Con 10) 10 meq PO BRK [facility] Last Admin: 05/08/18 08:30 Dose: 10 meq Propranolol HCl (Inderal) 20 mg PO TID [facility] Last Admin: 05/08/18 17:37 Dose: 20 mg - Labs Labs: 05/08/18 06:17 05/08/18 06:17 PT 16.9 SECONDS (9.7-12.2) H 05/06/18 12:09 INR 1.5 05/06/18 12:09 APTT 32 SECONDS (21-34) 05/06/18 12:09
[2018-05-09 06:32] LABS: BASO # 0.2 K/uL (0.0-0.2); BASO % 0.3 % (0.0-2.0); EOS # 0.2 K/uL (0.0-0.7); EOS % 0.3 % (0.0-4.0); HEMOGLOBIN 9.6 g/dL (11.0-16.0); LYMPH # 2.1 K/uL (1.0-4.3); LYMPH % 3.9 % (20.0-40.0); MEAN CELL VOLUME 89.3 fL (81.0-99.0); MEAN CORPUSCULAR HEMOGLOBIN 28.3 pg (27.0-31.0); MEAN CORPUSCULAR HGB CONC 31.7 g/dL (33.0-37.0); MEAN PLATELET VOLUME 12.6 fL (7.2-11.7); MONO # 3.7 K/uL (0.0-0.8); NEUT # 47.3 K/uL (1.8-7.0); NEUT % 88.5 % (50.0-75.0); NRBC % 9.1 % (0.0-2.0); PLATELET COUNT 69 K/uL (130-400); RBC 3.41 Mil/uL (3.80-5.20); RED CELL DISTRIBUTION WIDTH 18.6 % (11.5-14.5)
[2018-05-09 06:44] LABS: WHITE BLOOD COUNT 53.4 K/uL (4.8-10.8)
[2018-05-09 06:53] LABS: ALB/GLOB RATIO 0.9 (1.0-2.1); ALBUMIN 2.6 g/dL (3.5-5.0); CALCIUM 7.2 mg/dl (8.6-10.4)
[2018-05-09] MEDS: Potassium Chloride 10 mEq ER Tab PO SCH (08:00)
[2018-05-09 08:28] LABS: ANISOCYTOSIS SLIGHT; BANDS 2 % (0-2); LYMPHOCYTE 1 % (20-40); METAMYELOCYTE 2 % (0-0); MONOCYTE 3 % (0-10); MYELOCYTE 3 % (0-0); NEUTROPHIL 89 % (50-75); NUCLEATED RED BLOOD CELL 18 % (0-0); PLATELET ESTIMATE DECREASED (NORMAL); TOTAL CELLS COUNTED 100
[2018-05-09 08:29] LABS: OVALOCYTES SLIGHT; POLYCHROMIC SLIGHT
--- NOTE | 2018-05-09 09:34 | CP.PCM.PN ---
Subjective - Date & Time of Evaluation Date of Evaluation: 05/08/18 Time of Evaluation: 18:00 - Subjective Subjective: Feeling better, left upper quadrant pain. Objective - Vital Signs/Intake and Output Vital Signs (last 24 hours): Temp Pulse Resp BP Pulse Ox 98.8 F 97 H 19 145/70 97 05/09/18 03:59 05/09/18 06:00 05/09/18 06:00 05/09/18 05:57 05/09/18 06:00 Intake and Output: 05/09/18 05/09/18 06:59 18:59 Intake Total 150 Output Total 700 Balance -550 - Medications Medications: Current Medications Acetaminophen (Tylenol 325mg Tab) 650 mg PO Q6 PRN PRN Reason: Pain, Mild (1-3) Last Admin: 05/08/18 02:35 Dose: 650 mg Enoxaparin Sodium (Lovenox) 30 mg SC DAILY [facility] Last Admin: 05/08/18 09:32 Dose: 30 mg Famotidine (Pepcid) 20 mg PO DAILY [facility] Last Admin: 05/08/18 09:28 Dose: 20 mg Fluconazole (Diflucan) 100 mg PO DAILY [facility] PRN Reason: Protocol Last Admin: 05/08/18 09:49 Dose: 100 mg Hydroxyurea (Hydrea) 500 mg PO BID [facility] Last Admin: 05/08/18 17:37 Dose: 500 mg Morphine Sulfate (Morphine) 2 mg IV Q4H PRN PRN Reason: Pain, moderate (4-7) Last Admin: 05/09/18 00:30 Dose: 2 mg Ondansetron HCl (Zofran Inj) 4 mg IVP Q6H PRN PRN Reason: Nausea/Vomiting Last Admin: 05/07/18 14:18 Dose: 4 mg Potassium Chloride (Klor-Con 10) 10 meq PO BRK [facility] Last Admin: 05/08/18 08:30 Dose: 10 meq Propranolol HCl (Inderal) 20 mg PO TID [facility] Last Admin: 05/08/18 17:37 Dose: 20 mg - Labs Labs: 05/09/18 06:23 05/09/18 06:23 PT 16.9 SECONDS (9.7-12.2) H 05/06/18 12:09 INR 1.5 05/06/18 12:09 APTT 32 SECONDS (21-34) 05/06/18 12:09 - Head Exam Head Exam: ATRAUMATIC - Eye Exam Eye Exam: Normal appearance - ENT Exam ENT Exam: Mucous Membranes Dry - Respiratory Exam Respiratory Exam: NORMAL BREATHING PATTERN - Cardiovascular Exam Cardiovascular Exam: +S1, +S2 - GI/Abdominal Exam GI & Abdominal Exam: Normal Bowel Sounds Assessment and Plan (1) Leucocytosis Assessment & Plan: secondary to myelofibrosis improving Status: Acute (2) Thrombocytopenia Assessment & Plan: secondary to myelofibrosis Status: Acute (3) Hepatosplenomegaly Assessment & Plan: secondary to myelofibrosis s/p splenic emoblization for splenic hemorrhage Status: Acute (4) Anemia Assessment & Plan: chronic disease myelofibrosis Status: Acute (5) DVT (deep venous thrombosis) Assessment & Plan: recent splenic hemorrhage s/p embolization on prophylactic anticoagulation Status: Acute (6) Myelofibrosis Assessment & Plan: on Jakafi and hydrea Status: Acute
[2018-05-09] MEDS ORDERED: Sod Polystyrene Sulf 15 gm/60 ml Susp PO ONE (09:49)
--- NOTE | 2018-05-09 09:49 | CP.CCUPN ---
<Mani Melo - Last Filed: 05/09/18 09:52> CCU Subjective - Physician Review Subjective (Free Text): Critical care progress note: Pt seen and examined at bedside. No acute events overnight. Patient complains of abdominal pain worse on the L side. No other complaints. 12 Point ROS performed and neg other than stated above. CCU Objective - Vital Signs / Intake & Output Vital Signs (Last 4 hours): Vital Signs Pulse Resp BP Pulse Ox 05/09/18 06:00 97 H 19 97 05/09/18 05:57 145/70 Intake and Output (Last 8hrs): Intake & Output 05/08/18 05/09/18 05/09/18 22:59 06:59 14:59 Intake Total 350 100 Output Total 650 500 Balance -300 -400 Weight 180 lb 8 oz Intake: Oral 350 100 Output: Urine 650 500 Urine, Voided 650 500 - Physical Exam Head: Positive for: Atraumatic, Normocephalic Pupils: Positive for: PERRL Extroacular Muscles: Positive for: EOMI Mouth: Positive for: Moist Mucous Membranes Respiratory/Chest: Positive for: Decreased Breath Sounds. Negative for: Respiratory Distress Cardiovascular: Positive for: Regular Rate and Rhythm, Normal S1, S2 Abdomen: Positive for: Tenderness (L sided ), Normal Bowel Sounds, Other ( Enlarged liver palpable). Negative for: Distention, Peritoneal Signs, Guarding Back: Negative for: CVA Tenderness Upper Extremity: Positive for: NORMAL PULSES, Capillary Refill < 2s. Negative for: Cyanosis, Edema Lower Extremity: Positive for: NORMAL PULSES. Negative for: Edema, CALF TENDERNESS Neurological: Positive for: GCS=15, CN II-XII Intact Skin: Positive for: Warm, Dry, Normal Color Psychiatric: Positive for: Alert, Oriented x 3 - Medications Active Medications: Active Medications Generic Name Dose Route Start Last Admin Trade Name Freq PRN Reason Stop Dose Admin Acetaminophen 650 mg 04/26/18 17:00 05/08/18 02:35 Tylenol 325mg Tab PO 650 mg Q6 PRN Administration Pain, Mild (1-3) Enoxaparin Sodium 30 mg 05/07/18 10:00 05/08/18 09:32 Lovenox SC 30 mg DAILY NAN Administration Famotidine 20 mg 04/27/18 10:00 05/08/18 09:28 Pepcid PO 20 mg DAILY NAN Administration Fluconazole 100 mg 05/07/18 10:00 05/08/18 09:49 Diflucan PO 100 mg DAILY NAN Administration Protocol Hydroxyurea 500 mg 05/04/18 18:00 05/08/18 17:37 Hydrea PO 500 mg BID NAN Administration Morphine Sulfate 2 mg 05/08/18 00:36 05/09/18 00:30 Morphine IV 2 mg Q4H PRN Administration Pain, moderate (4-7) Ondansetron HCl 4 mg 05/06/18 12:00 05/07/18 14:18 Zofran Inj IVP 4 mg Q6H PRN Administration Nausea/Vomiting Potassium Chloride 10 meq 04/28/18 18:15 05/08/18 08:30 Klor-Con 10 PO 10 meq BRK NAN Administration Propranolol HCl 20 mg 05/01/18 19:15 05/08/18 17:37 Inderal PO 20 mg TID NAN Administration - Patient Studies Lab Studies: Lab Studies 05/09/18 05/09/18 Range/Units 06:23 06:23 WBC 53.4 H* (4.8-10.8) K/uL RBC 3.41 L (3.80-5.20) Mil/uL Hgb 9.6 L (11.0-16.0) g/dL Hct 30.4 L (34.0-47.0) % MCV 89.3 (81.0-99.0) fL MCH 28.3 (27.0-31.0) pg MCHC 31.7 L (33.0-37.0) g/dL RDW 18.6 H (11.5-14.5) % Plt Count 69 L (130-400) K/uL MPV 12.6 H (7.2-11.7) fL Neut % (Auto) 88.5 H (50.0-75.0) % Lymph % (Auto) 3.9 L (20.0-40.0) % Towner % (Auto) 7.0 (0.0-10.0) % Eos % (Auto) 0.3 (0.0-4.0) % Baso % (Auto) 0.3 (0.0-2.0) % Neut # (Auto) 47.3 H (1.8-7.0) K/uL Lymph # (Auto) 2.1 (1.0-4.3) K/uL Towner # (Auto) 3.7 H (0.0-0.8) K/uL Eos # (Auto) 0.2 (0.0-0.7) K/uL Baso # (Auto) 0.2 (0.0-0.2) K/uL Neutrophils % (Manual) 89 H (50-75) % Band Neutrophils % 2 (0-2) % Lymphocytes % (Manual) 1 L (20-40) % Monocytes % (Manual) 3 (0-10) % Metamyelocytes % 2 H (0-0) % Myelocytes % 3 H (0-0) % Nucleated RBC % 18 H (0-0) % Platelet Estimate Decreased L (NORMAL) Polychromasia Slight Anisocytosis (manual) Slight Ovalocytes Slight Sodium 133 (132-148) mmol/L Potassium 5.6 H (3.6-5.2) mmol/L Chloride 106 (98-107) mmol/L Carbon Dioxide 19 L (22-30) mmol/L Anion Gap 14 (10-20) BUN 56 H (7-17) mg/dL Creatinine 1.9 H (0.7-1.2) mg/dL Est GFR ( Amer) 32 Est GFR (Non-Af Amer) 26 Random Glucose 91 (65-105) mg/dL Calcium 7.2 L (8.6-10.4) mg/dl Phosphorus 4.9 H (2.5-4.5) mg/dL Magnesium 1.9 (1.6-2.3) mg/dL Total Bilirubin 1.1 (0.2-1.3) mg/dL AST 25 (14-36) U/L ALT 13 (9-52) U/L Alkaline Phosphatase 119 (38-126) U/L Total Protein 5.5 L (6.3-8.3) g/dL Albumin 2.6 L (3.5-5.0) g/dL Globulin 3.0 (2.2-3.9) gm/dL Albumin/Globulin Ratio 0.9 L (1.0-2.1) Laboratory Results - last 24 hr 05/09/18 05/09/18 06:23 06:23 WBC 53.4 H* RBC 3.41 L Hgb 9.6 L Hct 30.4 L MCV 89.3 MCH 28.3 MCHC 31.7 L RDW 18.6 H Plt Count 69 L MPV 12.6 H Neut % (Auto) 88.5 H Lymph % (Auto) 3.9 L Towner % (Auto) 7.0 Eos % (Auto) 0.3 Baso % (Auto) 0.3 Neut # (Auto) 47.3 H Lymph # (Auto) 2.1 Towner # (Auto) 3.7 H Eos # (Auto) 0.2 Baso # (Auto) 0.2 Neutrophils % (Manual) 89 H Band Neutrophils % 2 Lymphocytes % (Manual) 1 L Monocytes % (Manual) 3 Metamyelocytes % 2 H Myelocytes % 3 H Nucleated RBC % 18 H Platelet Estimate Decreased L Polychromasia Slight Anisocytosis (manual) Slight Ovalocytes Slight Sodium 133 Potassium 5.6 H Chloride 106 Carbon Dioxide 19 L Anion Gap 14 BUN 56 H Creatinine 1.9 H Est GFR ( Amer) 32 Est GFR (Non-Af Amer) 26 Random Glucose 91 Calcium 7.2 L Phosphorus 4.9 H Magnesium 1.9 Total Bilirubin 1.1 AST 25 ALT 13 Alkaline Phosphatase 119 Total Protein 5.5 L Albumin 2.6 L Globulin 3.0 Albumin/Globulin Ratio 0.9 L Review of Systems - Review of Systems All systems: reviewed and no additional remarkable complaints except Critical Care Progress Note - Nutrition Nutrition: Nutrition Category Date Time Status Heart Healthy Diet [DIET] Diets 04/30/18 Breakfast Active Assessment/Plan - Assessment and Plan (Free Text) Assessment: 67 year old female with history of arthritis, HTN, myelofibrosis with chronic leukocytosis who was admitted for right flank pain following failed outpatient treatment of pyelonephritis. CT revealed right hydroureteronephrosis with ureteral stricture, and she is s/p ureteral stent insertion by Dr. Irvin on 04/25/18. Patient developed Atrial fibrillation, currently on PO Cardizem. RLE DVT, on Eliquis. Patient complains of left lower quadrant pain. CT abdomen showing acute hemorrhagic process emanating from the spleen s/p IR embolectomy of splenic a POD 3. Neuro: AAO x 3 Pain control Pulm: Nasal cannula as tolerated Maintain SPO2 > 92 % CV: Currently hemodynamically stable Cardiology Dr. Alex consulted, help appreciated Eliquis held 2/2 acute hemorrhagic process emanating from the spleen ECHO Left ventricle systolic function is normal. EF 65-70%. Moderate pulmonary HTN Dopplers: Acute thrombosis of right gastrocnemius vein with severe reduction of venous return. Off of eliquis 2/2 acute hemorrhagic process emanating from the spleen GI: Pepcid 20mg PO daily Continue Inderal 20mg TID 05/06 CT abdomen showed acute hemorrhagic process emanating from the spleen Arterial doppler ordered to r/o pseudoaneurysm Renal: Elevated K of 5.6 Kayexelate 15mg x 1 Monitor I and O Replete electrolytes as needed Urology Dr Flor Irvin consulted Heme: Hx of myelofibrosis with chronic leukocytosis Dr. Mcbride consulted, help appreciated Eliquis held due to splenic hemorrhage Hb 9.6 Hydrea 500mg BID ID: Afebrile and Wbc dec to 53.[address] Jackson consulted, help appreciated Cont Fluconazole 100mg PO Urine culture + yeast Endo: Maintain euglycemia PPX: Lovenox, Pepcid Case and plan was reviewed and discussed in detail with Dr Gutiérrez. <Pennie Gutiérrez - Last Filed: 05/09/18 14:59> CCU Objective - Vital Signs / Intake & Output Vital Signs (Last 4 hours): Vital Signs Pulse Resp BP Pulse Ox 05/09/18 13:31 87 38 H 128/71 05/09/18 12:57 91 H 35 H 120/67 05/09/18 11:57 83 35 H 114/70 91 L 05/09/18 10:57 88 19 118/71 91 L Intake and Output (Last 8hrs): Intake & Output 05/08/18 05/09/18 05/09/18 22:59 06:59 14:59 Intake Total 350 100 Output Total 650 500 650 Balance -300 -400 -650 Weight 180 lb 8 oz Intake: Oral 350 100 Output: Urine 650 500 650 Urine, Voided 650 500 650 Other: # Voids Urine, Voided 1 # Bowel Movements 1 - Medications Active Medications: Active Medications Generic Name Dose Route Start Last Admin Trade Name Freq PRN Reason Stop Dose Admin Acetaminophen 650 mg 04/26/18 17:00 05/08/18 02:35 Tylenol 325mg Tab PO 650 mg Q6 PRN Administration Pain, Mild (1-3) Enoxaparin Sodium 30 mg 05/07/18 10:00 05/09/18 10:17 Lovenox SC 30 mg DAILY NAN Administration Famotidine 20 mg 04/27/18 10:00 05/09/18 10:17 Pepcid PO 20 mg DAILY NAN Administration Fluconazole 100 mg 05/07/18 10:00 05/09/18 10:27 Diflucan PO 100 mg DAILY NAN Administration Protocol Hydroxyurea 500 mg 05/04/18 18:00 05/09/18 10:20 Hydrea PO 500 mg BID NAN Administration Morphine Sulfate 2 mg 05/08/18 00:36 05/09/18 00:30 Morphine IV 2 mg Q4H PRN Administration Pain, moderate (4-7) Ondansetron HCl 4 mg 05/06/18 12:00 05/07/18 14:18 Zofran Inj IVP 4 mg Q6H PRN Administration Nausea/Vomiting Potassium Chloride 10 meq 04/28/18 18:15 05/09/18 08:00 Klor-Con 10 PO Not Given BRK NAN Propranolol HCl 20 mg 05/01/18 19:15 05/09/18 13:07 Inderal PO 20 mg TID NAN Administration - Patient Studies Lab Studies: Lab Studies 05/09/18 05/09/18 Range/Units 06:23 06:23 WBC 53.4 H* (4.8-10.8) K/uL RBC 3.41 L (3.80-5.20) Mil/uL Hgb 9.6 L (11.0-16.0) g/dL Hct 30.4 L (34.0-47.0) % MCV 89.3 (81.0-99.0) fL MCH 28.3 (27.0-31.0) pg MCHC 31.7 L (33.0-37.0) g/dL RDW 18.6 H (11.5-14.5) % Plt Count 69 L (130-400) K/uL MPV 12.6 H (7.2-11.7) fL Neut % (Auto) 88.5 H (50.0-75.0) % Lymph % (Auto) 3.9 L (20.0-40.0) % Towner % (Auto) 7.0 (0.0-10.0) % Eos % (Auto) 0.3 (0.0-4.0) % Baso % (Auto) 0.3 (0.0-2.0) % Neut # (Auto) 47.3 H (1.8-7.0) K/uL Lymph # (Auto) 2.1 (1.0-4.3) K/uL Towner # (Auto) 3.7 H (0.0-0.8) K/uL Eos # (Auto) 0.2 (0.0-0.7) K/uL Baso # (Auto) 0.2 (0.0-0.2) K/uL Neutrophils % (Manual) 89 H (50-75) % Band Neutrophils % 2 (0-2) % Lymphocytes % (Manual) 1 L (20-40) % Monocytes % (Manual) 3 (0-10) % Metamyelocytes % 2 H (0-0) % Myelocytes % 3 H (0-0) % Nucleated RBC % 18 H (0-0) % Platelet Estimate Decreased L (NORMAL) Polychromasia Slight Anisocytosis (manual) Slight Ovalocytes Slight Sodium 133 (132-148) mmol/L Potassium 5.6 H (3.6-5.2) mmol/L Chloride 106 (98-107) mmol/L Carbon Dioxide 19 L (22-30) mmol/L Anion Gap 14 (10-20) BUN 56 H (7-17) mg/dL Creatinine 1.9 H (0.7-1.2) mg/dL Est GFR ( Amer) 32 Est GFR (Non-Af Amer) 26 Random Glucose 91 (65-105) mg/dL Calcium 7.2 L (8.6-10.4) mg/dl Phosphorus 4.9 H (2.5-4.5) mg/dL Magnesium 1.9 (1.6-2.3) mg/dL Total Bilirubin 1.1 (0.2-1.3) mg/dL AST 25 (14-36) U/L ALT 13 (9-52) U/L Alkaline Phosphatase 119 (38-126) U/L Total Protein 5.5 L (6.3-8.3) g/dL Albumin 2.6 L (3.5-5.0) g/dL Globulin 3.0 (2.2-3.9) gm/dL Albumin/Globulin Ratio 0.9 L (1.0-2.1) Laboratory Results - last 24 hr 05/09/18 05/09/18 06:23 06:23 WBC 53.4 H* RBC 3.41 L Hgb 9.6 L Hct 30.4 L MCV 89.3 MCH 28.3 MCHC 31.7 L RDW 18.6 H Plt Count 69 L MPV 12.6 H Neut % (Auto) 88.5 H Lymph % (Auto) 3.9 L Towner % (Auto) 7.0 Eos % (Auto) 0.3 Baso % (Auto) 0.3 Neut # (Auto) 47.3 H Lymph # (Auto) 2.1 Towner # (Auto) 3.7 H Eos # (Auto) 0.2 Baso # (Auto) 0.2 Neutrophils % (Manual) 89 H Band Neutrophils % 2 Lymphocytes % (Manual) 1 L Monocytes % (Manual) 3 Metamyelocytes % 2 H Myelocytes % 3 H Nucleated RBC % 18 H Platelet Estimate Decreased L Polychromasia Slight Anisocytosis (manual) Slight Ovalocytes Slight Sodium 133 Potassium 5.6 H Chloride 106 Carbon Dioxide 19 L Anion Gap 14 BUN 56 H Creatinine 1.9 H Est GFR ( Amer) 32 Est GFR (Non-Af Amer) 26 Random Glucose 91 Calcium 7.2 L Phosphorus 4.9 H Magnesium 1.9 Total Bilirubin 1.1 AST 25 ALT 13 Alkaline Phosphatase 119 Total Protein 5.5 L Albumin 2.6 L Globulin 3.0 Albumin/Globulin Ratio 0.9 L Critical Care Progress Note - Nutrition Nutrition: Nutrition Category Date Time Status Heart Healthy Diet [DIET] Diets 04/30/18 Breakfast Active Assessment/Plan - Assessment and Plan (Free Text) Assessment: Patient seen and examined at bedside. Above resident documents my clinical management. -Patient has underlying renal failure CKD stage II -III and at risk of HD dependent -continue management as per renal, heme.onc and -Patient cannot tolerated Full dose anticoagulation -Patient remains clnically stable -contineu to monito -PT/OT -discharge managment as per patient's Daughter who is a nurse at [facility] - Date & Time Date: 05/09/18 Time: 14:58
[2018-05-09] MEDS: Enoxaparin 30 mg Syringe SC SCH (10:17)
--- NOTE | 2018-05-09 12:22 | CP.PCM.PN ---
Subjective - Date & Time of Evaluation Date of Evaluation: 05/09/18 Time of Evaluation: 11:15 - Subjective Subjective: clinically same Objective - Vital Signs/Intake and Output Vital Signs (last 24 hours): Temp Pulse Resp BP Pulse Ox 98.8 F 97 H 19 145/70 97 05/09/18 03:59 05/09/18 06:00 05/09/18 06:00 05/09/18 05:57 05/09/18 06:00 Intake and Output: 05/09/18 05/09/18 06:59 18:59 Intake Total 150 Output Total 700 Balance -550 - Medications Medications: Current Medications Acetaminophen (Tylenol 325mg Tab) 650 mg PO Q6 PRN PRN Reason: Pain, Mild (1-3) Last Admin: 05/08/18 02:35 Dose: 650 mg Enoxaparin Sodium (Lovenox) 30 mg SC DAILY [facility] Last Admin: 05/09/18 10:17 Dose: 30 mg Famotidine (Pepcid) 20 mg PO DAILY [facility] Last Admin: 05/09/18 10:17 Dose: 20 mg Fluconazole (Diflucan) 100 mg PO DAILY [facility] PRN Reason: Protocol Last Admin: 05/09/18 10:27 Dose: 100 mg Hydroxyurea (Hydrea) 500 mg PO BID [facility] Last Admin: 05/09/18 10:20 Dose: 500 mg Morphine Sulfate (Morphine) 2 mg IV Q4H PRN PRN Reason: Pain, moderate (4-7) Last Admin: 05/09/18 00:30 Dose: 2 mg Ondansetron HCl (Zofran Inj) 4 mg IVP Q6H PRN PRN Reason: Nausea/Vomiting Last Admin: 05/07/18 14:18 Dose: 4 mg Potassium Chloride (Klor-Con 10) 10 meq PO BRK [facility] Last Admin: 05/09/18 08:00 Dose: Not Given Propranolol HCl (Inderal) 20 mg PO TID [facility] Last Admin: 05/09/18 10:19 Dose: 20 mg - Labs Labs: 05/09/18 06:23 05/09/18 06:23 PT 16.9 SECONDS (9.7-12.2) H 05/06/18 12:09 INR 1.5 05/06/18 12:09 APTT 32 SECONDS (21-34) 05/06/18 12:09
--- NOTE | 2018-05-09 17:31 | PCM.URO ---
Urology Progress Note - Subjective Abdominal Pain: Yes (less) Flank Pain: No Nausea: No Vomiting: No Voiding Well: Yes Dysuria: No Hematuria: No Good Stream: Yes Dsypnea: No Chest Pain: No Fever & Chills: No - Objective Lab Studies: Reviewed Lab Results Last 24 Hours: Laboratory Results - last 24 hr 05/09/18 05/09/18 06:23 06:23 WBC 53.4 H* RBC 3.41 L Hgb 9.6 L Hct 30.4 L MCV 89.3 MCH 28.3 MCHC 31.7 L RDW 18.6 H Plt Count 69 L MPV 12.6 H Neut % (Auto) 88.5 H Lymph % (Auto) 3.9 L [place] % (Auto) 7.0 Eos % (Auto) 0.3 Baso % (Auto) 0.3 Neut # (Auto) 47.3 H Lymph # (Auto) 2.1 [place] # (Auto) 3.7 H Eos # (Auto) 0.2 Baso # (Auto) 0.2 Neutrophils % (Manual) 89 H Band Neutrophils % 2 Lymphocytes % (Manual) 1 L Monocytes % (Manual) 3 Metamyelocytes % 2 H Myelocytes % 3 H Nucleated RBC % 18 H Platelet Estimate Decreased L Polychromasia Slight Anisocytosis (manual) Slight Ovalocytes Slight Sodium 133 Potassium 5.6 H Chloride 106 Carbon Dioxide 19 L Anion Gap 14 BUN 56 H Creatinine 1.9 H Est GFR ( Amer) 32 Est GFR (Non-Af Amer) 26 Random Glucose 91 Calcium 7.2 L Phosphorus 4.9 H Magnesium 1.9 Total Bilirubin 1.1 AST 25 ALT 13 Alkaline Phosphatase 119 Total Protein 5.5 L Albumin 2.6 L Globulin 3.0 Albumin/Globulin Ratio 0.9 L Intake & Output: Intake & Output 05/08/18 05/09/18 05/09/18 18:59 06:59 18:59 Intake Total 750 150 350 Output Total 1550 700 650 Balance -800 -550 -300 Weight 180 lb 8 oz Intake: Oral 750 150 350 Output: Urine 1550 700 650 Urine, Voided 1550 700 650 Other: # Voids Urine, Voided 1 # Bowel Movements 1 Vital Signs: Vital Signs - 24 hr 05/08/18 05/08/18 05/08/18 17:57 18:57 19:57 Temperature Pulse Rate 85 80 Respiratory 32 H 36 H Rate Blood Pressure 138/77 135/78 152/73 H O2 Sat by Pulse 87 L 93 L Oximetry 05/08/18 05/08/18 05/08/18 20:00 20:57 21:00 Temperature 99.3 F Pulse Rate 78 80 Respiratory 22 23 Rate Blood Pressure 137/74 O2 Sat by Pulse 87 L 97 Oximetry 05/08/18 05/08/18 05/08/18 21:58 22:00 23:00 Temperature Pulse Rate 82 85 Respiratory 34 H 37 H Rate Blood Pressure 141/74 137/64 O2 Sat by Pulse 96 93 L Oximetry 05/08/18 05/09/18 05/09/18 23:57 00:00 00:57 Temperature 99 F Pulse Rate 84 Respiratory 22 Rate Blood Pressure 150/78 138/74 O2 Sat by Pulse 96 Oximetry 05/09/18 05/09/18 05/09/18 01:00 01:57 02:00 Temperature Pulse Rate 81 84 Respiratory 21 29 H Rate Blood Pressure 141/75 O2 Sat by Pulse 97 93 L Oximetry 05/09/18 05/09/18 05/09/18 02:57 03:00 03:57 Temperature Pulse Rate 77 Respiratory 24 Rate Blood Pressure 140/77 149/73 O2 Sat by Pulse 95 Oximetry 05/09/18 05/09/18 05/09/18 03:59 04:00 05:00 Temperature 98.8 F Pulse Rate 87 88 Respiratory 44 H 18 Rate Blood Pressure O2 Sat by Pulse 93 L 95 Oximetry 05/09/18 05/09/18 05/09/18 05:57 06:00 06:57 Temperature Pulse Rate 97 H 88 Respiratory 19 25 H Rate Blood Pressure 145/70 128/72 O2 Sat by Pulse 97 97 Oximetry 05/09/18 05/09/18 05/09/18 07:57 08:00 09:00 Temperature 98.8 F Pulse Rate 98 H 94 H Respiratory 33 H 34 H Rate Blood Pressure 122/68 O2 Sat by Pulse 99 96 Oximetry 05/09/18 05/09/18 05/09/18 10:57 11:57 12:00 Temperature 98.7 F Pulse Rate 88 83 Respiratory 19 35 H Rate Blood Pressure 118/71 114/70 O2 Sat by Pulse 91 L 91 L 99 Oximetry 05/09/18 05/09/18 05/09/18 12:57 13:31 14:57 Temperature Pulse Rate 91 H 87 87 Respiratory 35 H 38 H 25 H Rate Blood Pressure 120/67 128/71 125/69 O2 Sat by Pulse 70 L Oximetry 05/09/18 05/09/18 15:57 16:00 Temperature 99.1 F Pulse Rate 90 Respiratory 32 H Rate Blood Pressure 124/71 O2 Sat by Pulse 91 L 99 Oximetry - Physical Exam Abdominal Exam: Soft. absent: Non-Tender, Non-Distended Back: No CVA Tenderness Urine Color: Yellow - Plan Additional Information: IMP: UTI, NOW FUNGAL. LEUKOCYTOSIS, MYELOPLASTIC DISORDER. R HYDRONEPHROSIS. REC/P: PER ICU CARE. ANTIBIOTIC RX PER ID. HEME/ONC RX, NOTED. PT WILL NEED CYSTO,URETEROSCOPY - Date & Time of Note Date: 05/09/18 Time: 14:40
[2018-05-10 06:33] LABS: BASO # 0.3 K/uL (0.0-0.2); BASO % 0.7 % (0.0-2.0); EOS # 0.3 K/uL (0.0-0.7); EOS % 0.7 % (0.0-4.0); HEMOGLOBIN 9.5 g/dL (11.0-16.0); LYMPH # 2.1 K/uL (1.0-4.3); LYMPH % 4.4 % (20.0-40.0); MEAN CELL VOLUME 89.7 fL (81.0-99.0); MEAN CORPUSCULAR HEMOGLOBIN 28.2 pg (27.0-31.0); MEAN CORPUSCULAR HGB CONC 31.4 g/dL (33.0-37.0); MEAN PLATELET VOLUME 12.9 fL (7.2-11.7); MONO # 2.5 K/uL (0.0-0.8); MONO % 5.3 % (0.0-10.0); NEUT # 42.7 K/uL (1.8-7.0); NEUT % 88.9 % (50.0-75.0); NRBC % 15.5 % (0.0-2.0); PLATELET COUNT 61 K/uL (130-400); RBC 3.38 Mil/uL (3.80-5.20); RED CELL DISTRIBUTION WIDTH 18.2 % (11.5-14.5)
[2018-05-10 06:55] LABS: ALB/GLOB RATIO 0.9 (1.0-2.1); ALBUMIN 2.7 g/dL (3.5-5.0); CALCIUM 7.5 mg/dl (8.6-10.4)
[2018-05-10 08:41] LABS: BANDS 1 % (0-2); LYMPHOCYTE 1 % (20-40); METAMYELOCYTE 2 % (0-0); MONOCYTE 5 % (0-10); NEUTROPHIL 91 % (50-75); NUCLEATED RED BLOOD CELL 16 % (0-0); TOTAL CELLS COUNTED 100
[2018-05-10 08:42] LABS: GIANT PLATELETS PRESENT; HYPOCHROMIC SLIGHT; LARGE PLATELETS PRESENT; PLATELET ESTIMATE DECREASED (NORMAL); POLYCHROMIC SLIGHT
[2018-05-10 08:43] LABS: TOXIC GRANULATION PRESENT
[2018-05-10 08:45] LABS: ANISOCYTOSIS MODERATE
[2018-05-10] MEDS: Enoxaparin 30 mg Syringe SC SCH (09:18)
[2018-05-10] MEDS: Potassium Chloride 10 mEq ER Tab PO SCH (09:19)
[2018-05-10] MEDS ORDERED: Sodium Bicarbonate (8.4%) 50 Meq Syringe ONE (10:26)
--- NOTE | 2018-05-10 20:16 | CP.PCM.PN ---
Subjective - Date & Time of Evaluation Date of Evaluation: 05/10/18 Time of Evaluation: 10:00 - Subjective Subjective: clinically same Objective - Vital Signs/Intake and Output Vital Signs (last 24 hours): Temp Pulse Resp BP Pulse Ox 99.9 F H 89 25 H 108/53 L 96 05/10/18 16:00 05/10/18 19:00 05/10/18 19:00 05/10/18 18:58 05/10/18 19:00 Intake and Output: 05/10/18 05/11/18 18:59 06:59 Intake Total 1120 50 Output Total 550 Balance 570 50 - Medications Medications: Current Medications Acetaminophen (Tylenol 325mg Tab) 650 mg PO Q6 PRN PRN Reason: Pain, Mild (1-3) Last Admin: 05/08/18 02:35 Dose: 650 mg Enoxaparin Sodium (Lovenox) 30 mg SC DAILY [facility] Last Admin: 05/10/18 09:18 Dose: 30 mg Famotidine (Pepcid) 20 mg PO DAILY [facility] Last Admin: 05/10/18 09:19 Dose: 20 mg Fluconazole (Diflucan) 100 mg PO DAILY [facility] PRN Reason: Protocol Last Admin: 05/10/18 09:18 Dose: 100 mg Hydroxyurea (Hydrea) 500 mg PO BID [facility] Last Admin: 05/10/18 17:47 Dose: 500 mg Sodium Bicarbonate 75 meq/ (Sodium Chloride) 1,075 mls @ 50 mls/hr IV .[id number] [facility] Last Admin: 05/10/18 10:42 Dose: 50 mls/hr Morphine Sulfate (Morphine) 2 mg IV Q4H PRN PRN Reason: Pain, moderate (4-7) Last Admin: 05/09/18 00:30 Dose: 2 mg Ondansetron HCl (Zofran Inj) 4 mg IVP Q6H PRN PRN Reason: Nausea/Vomiting Last Admin: 05/07/18 14:18 Dose: 4 mg Potassium Chloride (Klor-Con 10) 10 meq PO BRK [facility] Last Admin: 05/10/18 09:19 Dose: Not Given Propranolol HCl (Inderal) 20 mg PO TID [facility] Last Admin: 05/10/18 17:47 Dose: 20 mg - Labs Labs: 05/10/18 06:26 09/22/18 06:26 PT 16.9 SECONDS (9.7-12.2) H 05/06/18 12:09 INR 1.5 05/06/18 12:09 APTT 32 SECONDS (21-34) 05/06/18 12:09
[2018-05-10] MEDS: JAKAFI 10 MG PO SCH (21:16)
[2018-05-11 07:00] LABS: URINE BACTERIA MANY (<OCC); URINE BILIRUBIN NEGATIVE (NEGATIVE); URINE BLOOD 3+ (NEGATIVE); URINE CLARITY Turbid (Clear); URINE COLOR Amber (YELLOW); URINE GLUCOSE (UA) NORMAL (Normal); URINE LEUKOCYTE ESTERASE 3+ Leu/uL (Negative); URINE PROTEIN 2+ mg/dL (NEGATIVE); WBC CLUMPS MANY /hpf
[2018-05-11 08:00] LABS: EOS # 0.1 K/uL (0.0-0.7); HEMOGLOBIN 8.7 g/dL (11.0-16.0); MEAN PLATELET VOLUME 13.4 fL (7.2-11.7)
[2018-05-11 08:05] LABS: BASO # 0.1 K/uL (0.0-0.2); BASO % 0.3 % (0.0-2.0); EOS % 0.4 % (0.0-4.0); LYMPH # 1.6 K/uL (1.0-4.3); LYMPH % 4.5 % (20.0-40.0); MEAN CELL VOLUME 89.9 fL (81.0-99.0); MEAN CORPUSCULAR HEMOGLOBIN 28.6 pg (27.0-31.0); MEAN CORPUSCULAR HGB CONC 31.8 g/dL (33.0-37.0); MONO % 5.5 % (0.0-10.0); NEUT % 89.3 % (50.0-75.0); PLATELET COUNT 53 K/uL (130-400); RBC 3.03 Mil/uL (3.80-5.20); RED CELL DISTRIBUTION WIDTH 18.8 % (11.5-14.5); WHITE BLOOD COUNT 35.9 K/uL (4.8-10.8)
[2018-05-11 08:21] LABS: ALB/GLOB RATIO 0.8 (1.0-2.1); ALBUMIN 2.3 g/dL (3.5-5.0); CALCIUM 7.2 mg/dl (8.6-10.4)
[2018-05-11 09:04] LABS: BANDS 3 % (0-2); LYMPHOCYTE 3 % (20-40); MONOCYTE 4 % (0-10); NEUTROPHIL 90 % (50-75); NUCLEATED RED BLOOD CELL 21 % (0-0); PLATELET ESTIMATE DECREASED (NORMAL); TOTAL CELLS COUNTED 100
[2018-05-11 09:05] LABS: GIANT PLATELETS PRESENT; HYPOCHROMIC SLIGHT; POLYCHROMIC SLIGHT
[2018-05-11 09:06] LABS: ANISOCYTOSIS MODERATE; LARGE PLATELETS PRESENT; OVALOCYTES SLIGHT; POIKILOCYTOSIS SLIGHT; SCHISTOCYTES SLIGHT
[2018-05-11 09:07] LABS: TEARDROP CELLS SLIGHT
[2018-05-11] MEDS: Enoxaparin 30 mg Syringe SC SCH (09:31)
[2018-05-11] MEDS: JAKAFI 10 MG PO SCH ×2 (09:31→18:41)
[2018-05-11] MEDS ORDERED: Cefepime IV 1 gm in Dextrose 1 GM/50 ML BAG IVPB STA (09:50)
[2018-05-11] MEDS: Potassium Chloride 10 mEq ER Tab PO SCH (09:51)
[2018-05-11] MEDS: Dextrose 5%/0.45% NS 1,000 ML IV SCH (10:00)
--- NOTE | 2018-05-11 10:24 | CP.CCUPN ---
<Mani Melo - Last Filed: 05/11/18 10:30> CCU Subjective - Physician Review Subjective (Free Text): Critical care progress note: Pt seen and examined at bedside. No acute events overnight. No complaints at this time. 12 Point ROS performed and neg other than stated above. CCU Objective - Vital Signs / Intake & Output Vital Signs (Last 4 hours): Vital Signs Temp Pulse Resp BP Pulse Ox 05/11/18 09:02 89 05/11/18 08:03 83 31 H 113/60 100 05/11/18 08:00 98.5 F 77 21 98 05/11/18 07:00 84 31 H 96 Intake and Output (Last 8hrs): Intake & Output 05/10/18 05/11/18 05/11/18 22:59 06:59 14:59 Intake Total 530 Output Total 350 Balance 180 Weight 176 lb 14.4 oz Intake: Intake, IV Amount 250 Right PICC 250 Oral 280 Output: Urine 350 Urine, Voided 350 Other: # Voids Urine, Voided 1 # Bowel Movements 1 1 - Physical Exam Head: Positive for: Atraumatic, Normocephalic Pupils: Positive for: PERRL Extroacular Muscles: Positive for: EOMI Mouth: Positive for: Moist Mucous Membranes Respiratory/Chest: Positive for: Decreased Breath Sounds. Negative for: Respiratory Distress Cardiovascular: Positive for: Regular Rate and Rhythm, Normal S1, S2 Abdomen: Positive for: Tenderness (L sided ), Normal Bowel Sounds, Other ( Enlarged liver palpable). Negative for: Distention, Peritoneal Signs, Guarding Back: Negative for: CVA Tenderness Upper Extremity: Positive for: NORMAL PULSES, Capillary Refill < 2s. Negative for: Cyanosis, Edema Lower Extremity: Positive for: NORMAL PULSES. Negative for: Edema, CALF TENDERNESS Neurological: Positive for: GCS=15, CN II-XII Intact Skin: Positive for: Warm, Dry, Normal Color Psychiatric: Positive for: Alert, Oriented x 3 - Medications Active Medications: Active Medications Generic Name Dose Route Start Last Admin Trade Name Freq PRN Reason Stop Dose Admin Acetaminophen 650 mg 04/26/18 17:00 05/08/18 02:35 Tylenol 325mg Tab PO 650 mg Q6 PRN Administration Pain, Mild (1-3) Enoxaparin Sodium 30 mg 05/07/18 10:00 05/11/18 09:31 Lovenox SC 30 mg DAILY NAN Administration Famotidine 20 mg 04/27/18 10:00 05/11/18 09:32 Pepcid PO 20 mg DAILY NAN Administration Fluconazole 100 mg 05/07/18 10:00 05/11/18 09:35 Diflucan PO 100 mg DAILY NAN Administration Protocol Home Med 1 tab 05/10/18 20:30 05/11/18 09:31 Patient's Own Medication PO 1 tab BID NAN Administration Hydroxyurea 500 mg 05/04/18 18:00 05/11/18 09:31 Hydrea PO 500 mg BID NAN Administration Dextrose/Sodium Chloride 1,000 mls @ 60 mls/hr 05/11/18 10:00 Dextrose 5%/0.45% Ns 1000 Ml IV .[id number] NAN Morphine Sulfate 2 mg 05/08/18 00:36 05/09/18 00:30 Morphine IV 2 mg Q4H PRN Administration Pain, moderate (4-7) Ondansetron HCl 4 mg 05/06/18 12:00 05/07/18 14:18 Zofran Inj IVP 4 mg Q6H PRN Administration Nausea/Vomiting Propranolol HCl 20 mg 05/01/18 19:15 05/11/18 09:31 Inderal PO 20 mg TID NAN Administration - Patient Studies Lab Studies: Lab Studies 05/11/18 05/11/18 05/11/18 Range/Units 07:56 07:56 06:52 WBC 35.9 H (4.8-10.8) K/uL RBC 3.03 L (3.80-5.20) Mil/uL Hgb 8.7 L (11.0-16.0) g/dL Hct 27.2 L (34.0-47.0) % MCV 89.9 (81.0-99.0) fL MCH 28.6 (27.0-31.0) pg MCHC 31.8 L (33.0-37.0) g/dL RDW 18.8 H (11.5-14.5) % Plt Count 53 L (130-400) K/uL MPV 13.4 H (7.2-11.7) fL Neut % (Auto) 89.3 H (50.0-75.0) % Lymph % (Auto) 4.5 L (20.0-40.0) % [place] % (Auto) 5.5 (0.0-10.0) % Eos % (Auto) 0.4 (0.0-4.0) % Baso % (Auto) 0.3 (0.0-2.0) % Neut # (Auto) 32.0 H (1.8-7.0) K/uL Lymph # (Auto) 1.6 (1.0-4.3) K/uL [place] # (Auto) 2.0 H (0.0-0.8) K/uL Eos # (Auto) 0.1 (0.0-0.7) K/uL Baso # (Auto) 0.1 (0.0-0.2) K/uL Neutrophils % (Manual) 90 H (50-75) % Band Neutrophils % 3 H (0-2) % Lymphocytes % (Manual) 3 L (20-40) % Monocytes % (Manual) 4 (0-10) % Nucleated RBC % 21 H (0-0) % Platelet Estimate Decreased L (NORMAL) Large Platelets Present Giant Platelets Present Polychromasia Slight Hypochromasia (manual) Slight Poikilocytosis (manual Slight Basophilic Stippling Slight Anisocytosis (manual) Moderate Tear Drop Cells Slight Ovalocytes Slight Schistocytes Slight Sodium 129 L (132-148) mmol/L Potassium 5.0 (3.6-5.2) mmol/L Chloride 100 (98-107) mmol/L Carbon Dioxide 22 (22-30) mmol/L Anion Gap 13 (10-20) BUN 82 H (7-17) mg/dL Creatinine 2.4 H (0.7-1.2) mg/dL Est GFR ( Amer) 24 Est GFR (Non-Af Amer) 20 Random Glucose 98 (65-105) mg/dL Calcium 7.2 L (8.6-10.4) mg/dl Total Bilirubin 0.8 (0.2-1.3) mg/dL AST 21 (14-36) U/L ALT 28 (9-52) U/L Alkaline Phosphatase 125 (38-126) U/L Total Protein 5.1 L (6.3-8.3) g/dL Albumin 2.3 L (3.5-5.0) g/dL Globulin 2.8 (2.2-3.9) gm/dL Albumin/Globulin Ratio 0.8 L (1.0-2.1) Urine Color Mahnaz (YELLOW) Urine Clarity Turbid (Clear) Urine pH 6.0 (5.0-8.0) Ur Specific [place] 1.011 (1.003-1.030) Urine Protein 2+ H (NEGATIVE) mg/dL Urine Glucose (UA) Normal (Normal) mg/dL Urine Ketones Negative (NEGATIVE) mg/dL Urine Blood 3+ H (NEGATIVE) Urine Nitrate Negative (NEGATIVE) Urine Bilirubin Negative (NEGATIVE) Urine Urobilinogen 2.0 H (0.2-1.0) mg/dL Ur Leukocyte Esterase 3+ H (Negative) Leo/uL Urine WBC (Auto) 2155 H (0-5) /hpf Urine RBC (Auto) 154 H (0-3) /hpf Urine WBC Clumps (Auto) Many H (NONE) /hpf Urine Bacteria Many H (<OCC) Laboratory Results - last 24 hr 05/11/18 05/11/18 05/11/18 06:52 07:56 07:56 WBC 35.9 H RBC 3.03 L Hgb 8.7 L Hct 27.2 L MCV 89.9 MCH 28.6 MCHC 31.8 L RDW 18.8 H Plt Count 53 L MPV 13.4 H Neut % (Auto) 89.3 H Lymph % (Auto) 4.5 L [place] % (Auto) 5.5 Eos % (Auto) 0.4 Baso % (Auto) 0.3 Neut # (Auto) 32.0 H Lymph # (Auto) 1.6 [place] # (Auto) 2.0 H Eos # (Auto) 0.1 Baso # (Auto) 0.1 Neutrophils % (Manual) 90 H Band Neutrophils % 3 H Lymphocytes % (Manual) 3 L Monocytes % (Manual) 4 Nucleated RBC % 21 H Platelet Estimate Decreased L Large Platelets Present Giant Platelets Present Polychromasia Slight Hypochromasia (manual) Slight Poikilocytosis (manual Slight Basophilic Stippling Slight Anisocytosis (manual) Moderate Tear Drop Cells Slight Ovalocytes Slight Schistocytes Slight Sodium 129 L Potassium 5.0 Chloride 100 Carbon Dioxide 22 Anion Gap 13 BUN 82 H Creatinine 2.4 H Est GFR ( Amer) 24 Est GFR (Non-Af Amer) 20 Random Glucose 98 Calcium 7.2 L Total Bilirubin 0.8 AST 21 ALT 28 Alkaline Phosphatase 125 Total Protein 5.1 L Albumin 2.3 L Globulin 2.8 Albumin/Globulin Ratio 0.8 L Urine Color Mahnaz Urine Clarity Turbid Urine pH 6.0 Ur Specific [place] 1.011 Urine Protein 2+ H Urine Glucose (UA) Normal Urine Ketones Negative Urine Blood 3+ H Urine Nitrate Negative Urine Bilirubin Negative Urine Urobilinogen 2.0 H Ur Leukocyte Esterase 3+ H Urine WBC (Auto) 2155 H Urine RBC (Auto) 154 H Urine WBC Clumps (Auto) Many H Urine Bacteria Many H Critical Care Progress Note - Nutrition Nutrition: Nutrition Category Date Time Status Heart Healthy Diet [DIET] Diets 04/30/18 Breakfast Active Assessment/Plan - Assessment and Plan (Free Text) Assessment: 67 year old female with history of arthritis, HTN, myelofibrosis with chronic leukocytosis who was admitted for right flank pain following failed outpatient treatment of pyelonephritis. CT revealed right hydroureteronephrosis with ureteral stricture, and she is s/p ureteral stent insertion by Dr. Irvin on 04/25/18. Patient developed Atrial fibrillation, currently on PO Cardizem. RLE DVT, on Eliquis. Patient complains of left lower quadrant pain. CT abdomen showing acute hemorrhagic process emanating from the spleen s/p IR embolectomy of splenic. Neuro: AAO x 3 Pain control Pulm: Nasal cannula as tolerated Maintain SPO2 > 92 % CV: Currently hemodynamically stable Cardiology Dr. Alex consulted, help appreciated Eliquis held 2/2 acute hemorrhagic process emanating from the spleen ECHO Left ventricle systolic function is normal. EF 65-70%. Moderate pulmonary HTN Dopplers: Acute thrombosis of right gastrocnemius vein with severe reduction of venous return. Off of eliquis 2/2 acute hemorrhagic process emanating from the spleen GI: Pepcid 20mg PO daily Continue Inderal 20mg TID 05/06 CT abdomen showed acute hemorrhagic process emanating from the spleen Arterial doppler ordered to r/o pseudoaneurysm Renal: Bernard with worsening Cr 2.4 this am UTI, F/u urine cultures Started on Cefepime x 1 Monitor I and O Replete electrolytes as needed Urology Dr Flor Irvin consulted Heme: Hx of myelofibrosis with chronic leukocytosis Dr. Mcbride consulted, help appreciated Eliquis held due to splenic hemorrhage Hb 8.7 Hydrea 500mg BID ID: Afebrile and Wbc dec to 35.9 +UA, F/u urine cultures Started on Cefepime x [address] Jackson consulted, help appreciated Cont Fluconazole 100mg PO Urine culture + yeast F/u septic work up Endo: Maintain euglycemia PPX: Lovenox, Pepcid Case and plan was reviewed and discussed in detail with Dr Serna. <Enmanuel Serna S - Last Filed: 05/11/18 11:48> CCU Subjective - Physician Review Critical Care Time Spent (in minutes): 30 CCU Objective - Vital Signs / Intake & Output Vital Signs (Last 4 hours): Vital Signs Temp Pulse Resp BP Pulse Ox 05/11/18 11:00 83 33 H 92 L 05/11/18 10:03 118/53 L 05/11/18 10:00 91 H 22 99 05/11/18 09:42 113/59 L 05/11/18 09:02 89 05/11/18 08:03 83 31 H 113/60 100 05/11/18 08:00 98.5 F 77 21 98 Intake and Output (Last 8hrs): Intake & Output 05/10/18 05/11/18 05/11/18 22:59 06:59 14:59 Intake Total 530 410 Output Total 350 Balance 180 410 Weight 176 lb 14.4 oz Intake: Intake, IV Amount 250 170 Right PICC 250 170 Oral 280 240 Output: Urine 350 Urine, Voided 350 Other: # Voids Urine, Voided 1 1 # Bowel Movements 1 1 - Medications Active Medications: Active Medications Generic Name Dose Route Start Last Admin Trade Name Vishnuq PRN Reason Stop Dose Admin Acetaminophen 650 mg 04/26/18 17:00 05/08/18 02:35 Tylenol 325mg Tab PO 650 mg Q6 PRN Administration Pain, Mild (1-3) Enoxaparin Sodium 30 mg 05/07/18 10:00 05/11/18 09:31 Lovenox SC 30 mg DAILY NAN Administration Famotidine 20 mg 04/27/18 10:00 05/11/18 09:32 Pepcid PO 20 mg DAILY NAN Administration Fluconazole 100 mg 05/07/18 10:00 05/11/18 09:35 Diflucan PO 100 mg DAILY NAN Administration Protocol Home Med 1 tab 05/10/18 20:30 05/11/18 09:31 Patient's Own Medication PO 1 tab BID NAN Administration Hydroxyurea 500 mg 05/04/18 18:00 05/11/18 09:31 Hydrea PO 500 mg BID NAN Administration Dextrose/Sodium Chloride 1,000 mls @ 60 mls/hr 05/11/18 10:00 05/11/18 10:00 Dextrose 5%/0.45% Ns 1000 Ml IV 60 mls/hr .[id number] NAN Administration Morphine Sulfate 2 mg 05/08/18 00:36 05/09/18 00:30 Morphine IV 2 mg Q4H PRN Administration Pain, moderate (4-7) Ondansetron HCl 4 mg 05/06/18 12:00 05/07/18 14:18 Zofran Inj IVP 4 mg Q6H PRN Administration Nausea/Vomiting Propranolol HCl 20 mg 05/01/18 19:15 05/11/18 09:31 Inderal PO 20 mg TID NAN Administration - Patient Studies Lab Studies: Lab Studies 05/11/18 05/11/18 05/11/18 Range/Units 07:56 07:56 06:52 WBC 35.9 H (4.8-10.8) K/uL RBC 3.03 L (3.80-5.20) Mil/uL Hgb 8.7 L (11.0-16.0) g/dL Hct 27.2 L (34.0-47.0) % MCV 89.9 (81.0-99.0) fL MCH 28.6 (27.0-31.0) pg MCHC 31.8 L (33.0-37.0) g/dL RDW 18.8 H (11.5-14.5) % Plt Count 53 L (130-400) K/uL MPV 13.4 H (7.2-11.7) fL Neut % (Auto) 89.3 H (50.0-75.0) % Lymph % (Auto) 4.5 L (20.0-40.0) % [place] % (Auto) 5.5 (0.0-10.0) % Eos % (Auto) 0.4 (0.0-4.0) % Baso % (Auto) 0.3 (0.0-2.0) % Neut # (Auto) 32.0 H (1.8-7.0) K/uL Lymph # (Auto) 1.6 (1.0-4.3) K/uL [place] # (Auto) 2.0 H (0.0-0.8) K/uL Eos # (Auto) 0.1 (0.0-0.7) K/uL Baso # (Auto) 0.1 (0.0-0.2) K/uL Neutrophils % (Manual) 90 H (50-75) % Band Neutrophils % 3 H (0-2) % Lymphocytes % (Manual) 3 L (20-40) % Monocytes % (Manual) 4 (0-10) % Nucleated RBC % 21 H (0-0) % Platelet Estimate Decreased L (NORMAL) Large Platelets Present Giant Platelets Present Polychromasia Slight Hypochromasia (manual) Slight Poikilocytosis (manual Slight Basophilic Stippling Slight Anisocytosis (manual) Moderate Tear Drop Cells Slight Ovalocytes Slight Schistocytes Slight Sodium 129 L (132-148) mmol/L Potassium 5.0 (3.6-5.2) mmol/L Chloride 100 (98-107) mmol/L Carbon Dioxide 22 (22-30) mmol/L Anion Gap 13 (10-20) BUN 82 H (7-17) mg/dL Creatinine 2.4 H (0.7-1.2) mg/dL Est GFR ( Amer) 24 Est GFR (Non-Af Amer) 20 Random Glucose 98 (65-105) mg/dL Calcium 7.2 L (8.6-10.4) mg/dl Total Bilirubin 0.8 (0.2-1.3) mg/dL AST 21 (14-36) U/L ALT 28 (9-52) U/L Alkaline Phosphatase 125 (38-126) U/L Total Protein 5.1 L (6.3-8.3) g/dL Albumin 2.3 L (3.5-5.0) g/dL Globulin 2.8 (2.2-3.9) gm/dL Albumin/Globulin Ratio 0.8 L (1.0-2.1) Urine Color Mahnaz (YELLOW) Urine Clarity Turbid (Clear) Urine pH 6.0 (5.0-8.0) Ur Specific [place] 1.011 (1.003-1.030) Urine Protein 2+ H (NEGATIVE) mg/dL Urine Glucose (UA) Normal (Normal) mg/dL Urine Ketones Negative (NEGATIVE) mg/dL Urine Blood 3+ H (NEGATIVE) Urine Nitrate Negative (NEGATIVE) Urine Bilirubin Negative (NEGATIVE) Urine Urobilinogen 2.0 H (0.2-1.0) mg/dL Ur Leukocyte Esterase 3+ H (Negative) Leo/uL Urine WBC (Auto) 2155 H (0-5) /hpf Urine RBC (Auto) 154 H (0-3) /hpf Urine WBC Clumps (Auto) Many H (NONE) /hpf Urine Bacteria Many H (<OCC) Laboratory Results - last 24 hr 05/11/18 05/11/18 05/11/18 06:52 07:56 07:56 WBC 35.9 H RBC 3.03 L Hgb 8.7 L Hct 27.2 L MCV 89.9 MCH 28.6 MCHC 31.8 L RDW 18.8 H Plt Count 53 L MPV 13.4 H Neut % (Auto) 89.3 H Lymph % (Auto) 4.5 L [place] % (Auto) 5.5 Eos % (Auto) 0.4 Baso % (Auto) 0.3 Neut # (Auto) 32.0 H Lymph # (Auto) 1.6 [place] # (Auto) 2.0 H Eos # (Auto) 0.1 Baso # (Auto) 0.1 Neutrophils % (Manual) 90 H Band Neutrophils % 3 H Lymphocytes % (Manual) 3 L Monocytes % (Manual) 4 Nucleated RBC % 21 H Platelet Estimate Decreased L Large Platelets Present Giant Platelets Present Polychromasia Slight Hypochromasia (manual) Slight Poikilocytosis (manual Slight Basophilic Stippling Slight Anisocytosis (manual) Moderate Tear Drop Cells Slight Ovalocytes Slight Schistocytes Slight Sodium 129 L Potassium 5.0 Chloride 100 Carbon Dioxide 22 Anion Gap 13 BUN 82 H Creatinine 2.4 H Est GFR ( Amer) 24 Est GFR (Non-Af Amer) 20 Random Glucose 98 Calcium 7.2 L Total Bilirubin 0.8 AST 21 ALT 28 Alkaline Phosphatase 125 Total Protein 5.1 L Albumin 2.3 L Globulin 2.8 Albumin/Globulin Ratio 0.8 L Urine Color [place] Urine Clarity Turbid Urine pH 6.0 Ur Specific [place] 1.011 Urine Protein 2+ H Urine Glucose (UA) Normal Urine Ketones Negative Urine Blood 3+ H Urine Nitrate Negative Urine Bilirubin Negative Urine Urobilinogen 2.0 H Ur Leukocyte Esterase 3+ H Urine WBC (Auto) 2155 H Urine RBC (Auto) 154 H Urine WBC Clumps (Auto) Many H Urine Bacteria Many H Critical Care Progress Note - Nutrition Nutrition: Nutrition Category Date Time Status Heart Healthy Diet [DIET] Diets 04/30/18 Breakfast Active Attending/Attestation - Attestation I have personally seen and examined this patient.: Yes I have fully participated in the care of the patient.: Yes I have reviewed all pertinent clinical information: Yes Notes (Text): 05/11/18 11:48 Patient seen and examined Continue with ICU observation Discontinue bicarbonate drip Start IV fluids Continue IV antibiotics Infectious disease follow-up Urine for culture and sensitivity
--- NOTE | 2018-05-11 18:11 | CP.PCM.PN ---
Subjective - Date & Time of Evaluation Date of Evaluation: 05/11/18 Time of Evaluation: 10:00 - Subjective Subjective: clinically same Objective - Vital Signs/Intake and Output Vital Signs (last 24 hours): Temp Pulse Resp BP Pulse Ox 98.6 F 79 33 H 125/62 97 05/11/18 16:00 05/11/18 15:17 05/11/18 15:17 05/11/18 16:03 05/11/18 15:17 Intake and Output: 05/11/18 05/11/18 06:59 18:59 Intake Total 150 1130 Output Total 150 200 Balance 0 930 - Medications Medications: Current Medications Acetaminophen (Tylenol 325mg Tab) 650 mg PO Q6 PRN PRN Reason: Pain, Mild (1-3) Last Admin: 05/08/18 02:35 Dose: 650 mg Enoxaparin Sodium (Lovenox) 30 mg SC DAILY [facility] Last Admin: 05/11/18 09:31 Dose: 30 mg Famotidine (Pepcid) 20 mg PO DAILY [facility] Last Admin: 05/11/18 09:32 Dose: 20 mg Home Med (Patient's Own Medication) 1 tab PO BID [facility] Last Admin: 05/11/18 09:31 Dose: 1 tab Hydroxyurea (Hydrea) 500 mg PO BID [facility] Last Admin: 05/11/18 09:31 Dose: 500 mg Dextrose/Sodium Chloride (Dextrose 5%/0.45% Ns 1000 Ml) 1,000 mls @ 60 mls/hr IV .[id number] [facility] Last Admin: 05/11/18 10:00 Dose: 60 mls/hr Morphine Sulfate (Morphine) 2 mg IV Q4H PRN PRN Reason: Pain, moderate (4-7) Last Admin: 05/09/18 00:30 Dose: 2 mg Ondansetron HCl (Zofran Inj) 4 mg IVP Q6H PRN PRN Reason: Nausea/Vomiting Last Admin: 05/07/18 14:18 Dose: 4 mg Propranolol HCl (Inderal) 20 mg PO TID [facility] Last Admin: 05/11/18 15:50 Dose: 20 mg - Labs Labs: 05/11/18 07:56 05/11/18 07:56 PT 16.9 SECONDS (9.7-12.2) H 05/06/18 12:09 INR 1.5 05/06/18 12:09 APTT 32 SECONDS (21-34) 05/06/18 12:09
[2018-05-12] MEDS: Dextrose 5%/0.45% NS 1,000 ML IV SCH ×2 (02:16→18:23)
[2018-05-12 06:41] LABS: EOS # 0.2 K/uL (0.0-0.7); HEMOGLOBIN 6.8 g/dL (11.0-16.0); NEUT % 88.7 % (50.0-75.0)
[2018-05-12 06:58] LABS: BASO # 0.1 K/uL (0.0-0.2); BASO % 0.3 % (0.0-2.0); EOS % 0.8 % (0.0-4.0); LYMPH % 5.2 % (20.0-40.0); MEAN CELL VOLUME 91.3 fL (81.0-99.0); MEAN CORPUSCULAR HEMOGLOBIN 28.2 pg (27.0-31.0); MEAN CORPUSCULAR HGB CONC 30.9 g/dL (33.0-37.0); MEAN PLATELET VOLUME 15.3 fL (7.2-11.7); NEUT # 17.1 K/uL (1.8-7.0); NRBC % 19.5 % (0.0-2.0); PLATELET COUNT 55 K/uL (130-400); RBC 2.42 Mil/uL (3.80-5.20); RED CELL DISTRIBUTION WIDTH 19.7 % (11.5-14.5); WHITE BLOOD COUNT 19.3 K/uL (4.8-10.8)
[2018-05-12 07:04] LABS: ALB/GLOB RATIO 0.8 (1.0-2.1); ALBUMIN 2.3 g/dL (3.5-5.0); CALCIUM 7.3 mg/dl (8.6-10.4)
[2018-05-12 08:00] LABS: EOSINOPHIL 1 % (0-4); LYMPHOCYTE 2 % (20-40); MONOCYTE 5 % (0-10); NEUTROPHIL 92 % (50-75); NUCLEATED RED BLOOD CELL 18 % (0-0); TOTAL CELLS COUNTED 100
[2018-05-12 08:01] LABS: ANISOCYTOSIS SLIGHT; HYPOCHROMIC MODERATE; OVALOCYTES SLIGHT; PLATELET ESTIMATE DECREASED (NORMAL); POIKILOCYTOSIS SLIGHT; POLYCHROMIC SLIGHT; TARGET CELLS SLIGHT
[2018-05-12 08:02] LABS: GIANT PLATELETS PRESENT; LARGE PLATELETS PRESENT; MICROCYTOSIS SLIGHT
[2018-05-12] MEDS: JAKAFI 10 MG PO SCH ×2 (10:07→18:22)
[2018-05-12 10:09] LABS: BASO # 0.1 K/uL (0.0-0.2); BASO % 0.5 % (0.0-2.0); EOS # 0.2 K/uL (0.0-0.7); EOS % 0.8 % (0.0-4.0); HEMOGLOBIN 8.6 g/dL (11.0-16.0); LYMPH # 1.6 K/uL (1.0-4.3); LYMPH % 6.9 % (20.0-40.0); MEAN CELL VOLUME 90.3 fL (81.0-99.0); MEAN CORPUSCULAR HEMOGLOBIN 28.8 pg (27.0-31.0); MEAN CORPUSCULAR HGB CONC 31.9 g/dL (33.0-37.0); MEAN PLATELET VOLUME 13.5 fL (7.2-11.7); MONO % 4.3 % (0.0-10.0); NEUT # 20.8 K/uL (1.8-7.0); NEUT % 87.5 % (50.0-75.0); NRBC % 12.4 % (0.0-2.0); RBC 2.98 Mil/uL (3.80-5.20); RED CELL DISTRIBUTION WIDTH 19.2 % (11.5-14.5); WHITE BLOOD COUNT 23.8 K/uL (4.8-10.8)
--- NOTE | 2018-05-12 10:16 | CP.PCM.PN ---
Subjective - Date & Time of Evaluation Date of Evaluation: 05/12/18 Time of Evaluation: 10:13 - Subjective Subjective: In ICU D/W RN- Hgb dropped to 6, being repeated. No melena, hematochezia or change in hemodynamics LUQ pain continues Objective - Vital Signs/Intake and Output Vital Signs (last 24 hours): Temp Pulse Resp BP Pulse Ox 98.2 F 79 26 H 128/64 98 05/12/18 08:00 05/12/18 10:00 05/12/18 10:00 05/12/18 09:54 05/12/18 10:00 Intake and Output: 05/12/18 05/12/18 06:59 18:59 Intake Total 1280 280 Output Total 1200 400 Balance 80 -120 - Medications Medications: Current Medications Acetaminophen (Tylenol 325mg Tab) 650 mg PO Q6 PRN PRN Reason: Pain, Mild (1-3) Last Admin: 05/08/18 02:35 Dose: 650 mg Enoxaparin Sodium (Lovenox) 30 mg SC DAILY [facility] Last Admin: 05/11/18 09:31 Dose: 30 mg Famotidine (Pepcid) 20 mg PO DAILY [facility] Last Admin: 05/12/18 10:07 Dose: 20 mg Home Med (Patient's Own Medication) 1 tab PO BID [facility] Last Admin: 05/12/18 10:07 Dose: 1 tab Hydroxyurea (Hydrea) 500 mg PO BID [facility] Last Admin: 05/12/18 10:06 Dose: 500 mg Dextrose/Sodium Chloride (Dextrose 5%/0.45% Ns 1000 Ml) 1,000 mls @ 60 mls/hr IV .[id number] [facility] Last Admin: 05/12/18 02:16 Dose: 60 mls/hr Morphine Sulfate (Morphine) 2 mg IV Q4H PRN PRN Reason: Pain, moderate (4-7) Last Admin: 05/12/18 00:07 Dose: 2 mg Ondansetron HCl (Zofran Inj) 4 mg IVP Q6H PRN PRN Reason: Nausea/Vomiting Last Admin: 05/07/18 14:18 Dose: 4 mg Propranolol HCl (Inderal) 20 mg PO TID [facility] Last Admin: 05/12/18 10:07 Dose: 20 mg - Labs Labs: 05/12/18 10:06 05/12/18 06:29 PT 16.9 SECONDS (9.7-12.2) H 05/06/18 12:09 INR 1.5 05/06/18 12:09 APTT 32 SECONDS (21-34) 05/06/18 12:09 - Constitutional Appears: No Acute Distress - Head Exam Head Exam: NORMOCEPHALIC - Cardiovascular Exam Cardiovascular Exam: REGULAR RHYTHM - GI/Abdominal Exam GI & Abdominal Exam: Soft, Tenderness. absent: Distended, Guarding, Organomegaly Assessment and Plan (1) Hepatosplenomegaly Status: Acute (2) Myelofibrosis Status: Acute (3) Pyelonephritis due to Escherichia coli Status: Acute (4) Thrombocytopenia Status: Acute (5) Anemia Assessment & Plan: Stool OB negative If repeat Hgb confirmed, would confer with district adviser on further management Status: Acute
[2018-05-12] MEDS: Enoxaparin 30 mg Syringe SC SCH (11:24)
--- NOTE | 2018-05-12 13:10 | CP.PCM.PN ---
Subjective - Date & Time of Evaluation Date of Evaluation: 05/12/18 Time of Evaluation: 10:00 - Subjective Subjective: Resident Progress Note for Dr. Gale Patient examined at bedside. No acute events overnight. Patient is still having some left sided abdominal pain. [facility] Denies fevers, chills, chest pain, shortness of breath. Objective - Vital Signs/Intake and Output Vital Signs (last 24 hours): Temp Pulse Resp BP Pulse Ox 98 F 77 36 H 112/61 97 05/12/18 12:00 05/12/18 12:00 05/12/18 12:00 05/12/18 11:54 05/12/18 12:00 Intake and Output: 05/12/18 05/12/18 06:59 18:59 Intake Total 1280 660 Output Total 1200 600 Balance 80 60 - Medications Medications: Current Medications Acetaminophen (Tylenol 325mg Tab) 650 mg PO Q6 PRN PRN Reason: Pain, Mild (1-3) Last Admin: 05/08/18 02:35 Dose: 650 mg Enoxaparin Sodium (Lovenox) 30 mg SC DAILY [facility] Last Admin: 05/12/18 11:24 Dose: 30 mg Famotidine (Pepcid) 20 mg PO DAILY [facility] Last Admin: 05/12/18 10:07 Dose: 20 mg Home Med (Patient's Own Medication) 1 tab PO BID [facility] Last Admin: 05/12/18 10:07 Dose: 1 tab Hydroxyurea (Hydrea) 500 mg PO BID [facility] Last Admin: 05/12/18 10:06 Dose: 500 mg Dextrose/Sodium Chloride (Dextrose 5%/0.45% Ns 1000 Ml) 1,000 mls @ 60 mls/hr IV .[id number] [facility] Last Admin: 05/12/18 02:16 Dose: 60 mls/hr Morphine Sulfate (Morphine) 2 mg IV Q4H PRN PRN Reason: Pain, moderate (4-7) Last Admin: 05/12/18 00:07 Dose: 2 mg Ondansetron HCl (Zofran Inj) 4 mg IVP Q6H PRN PRN Reason: Nausea/Vomiting Last Admin: 05/07/18 14:18 Dose: 4 mg Propranolol HCl (Inderal) 20 mg PO TID [facility] Last Admin: 05/12/18 10:07 Dose: 20 mg - Labs Labs: 05/12/18 10:06 05/12/18 06:29 PT 16.9 SECONDS (9.7-12.2) H 05/06/18 12:09 INR 1.5 05/06/18 12:09 APTT 32 SECONDS (21-34) 05/06/18 12:09 - Constitutional Appears: No Acute Distress - Head Exam Head Exam: ATRAUMATIC, NORMOCEPHALIC - Eye Exam Eye Exam: EOMI, Normal appearance - ENT Exam ENT Exam: Mucous Membranes Moist - Neck Exam Neck Exam: Normal Inspection - Respiratory Exam Respiratory Exam: Decreased Breath Sounds, NORMAL BREATHING PATTERN - Cardiovascular Exam Cardiovascular Exam: REGULAR RHYTHM, +S1, +S2 - GI/Abdominal Exam GI & Abdominal Exam: Soft, Tenderness (in left upper quadrant ), Normal Bowel Sounds - Extremities Exam Extremities Exam: Normal Inspection - Neurological Exam Neurological Exam: Alert, Awake, Oriented x3 - Skin Skin Exam: Dry, Intact
--- NOTE | 2018-05-12 13:41 | CP.CCUPN ---
CCU Subjective - Physician Review Subjective (Free Text): 05/12/18 13:16 Resident Progress Note for Dr. Gale Patient examined at bedside. No acute events overnight. Patient is still having some left sided abdominal pain. Patient is awaiting transfer to [facility]. Denies fevers, chills, chest pain, shortness of breath. Critical Care Time Spent (in minutes): 35 CCU Objective - Vital Signs / Intake & Output Vital Signs (Last 4 hours): Vital Signs Temp Pulse Resp BP Pulse Ox 05/12/18 12:00 98 F 77 36 H 97 05/12/18 11:54 77 34 H 112/61 96 05/12/18 11:00 75 31 H 99 05/12/18 10:54 73 22 119/62 100 05/12/18 10:00 79 26 H 98 05/12/18 09:54 80 29 H 128/64 98 Intake and Output (Last 8hrs): Intake & Output 05/11/18 05/12/18 05/12/18 22:59 06:59 14:59 Intake Total 860 900 660 Output Total 100 1200 600 Balance 760 -300 60 Weight 176 lb Intake: Intake, IV Amount 480 480 360 Right PICC 480 480 360 Oral 380 420 300 Output: Urine 100 1200 600 Urine, Voided 100 1200 600 Other: # Voids Urine, Voided 1 # Bowel Movements 1 0 - Physical Exam Head: Positive for: Atraumatic, Normocephalic Pupils: Positive for: PERRL Extroacular Muscles: Positive for: EOMI Conjunctiva: Positive for: Normal Mouth: Positive for: Moist Mucous Membranes Respiratory/Chest: Positive for: Decreased Breath Sounds. Negative for: Respiratory Distress, Accessory Muscle Use Cardiovascular: Positive for: Regular Rate and Rhythm, Normal S1, S2 Abdomen: Positive for: Tenderness (left upper quadrant), Normal Bowel Sounds, Other (Enlarged liver palpable). Negative for: Distention, Peritoneal Signs, Guarding Back: Negative for: CVA Tenderness Upper Extremity: Positive for: NORMAL PULSES, Capillary Refill < 2s. Negative for: Edema Lower Extremity: Positive for: NORMAL PULSES. Negative for: Edema, CALF TENDERNESS Neurological: Positive for: GCS=15, CN II-XII Intact Skin: Positive for: Warm, Dry, Normal Color Psychiatric: Positive for: Alert, Oriented x 3 - Medications Active Medications: Active Medications Generic Name Dose Route Start Last Admin Trade Name Freq PRN Reason Stop Dose Admin Acetaminophen 650 mg 04/26/18 17:00 05/08/18 02:35 Tylenol 325mg Tab PO 650 mg Q6 PRN Administration Pain, Mild (1-3) Enoxaparin Sodium 30 mg 05/07/18 10:00 05/12/18 11:24 Lovenox SC 30 mg DAILY NAN Administration Famotidine 20 mg 04/27/18 10:00 05/12/18 10:07 Pepcid PO 20 mg DAILY NAN Administration Home Med 1 tab 05/10/18 20:30 05/12/18 10:07 Patient's Own Medication PO 1 tab BID NAN Administration Hydroxyurea 500 mg 05/04/18 18:00 05/12/18 10:06 Hydrea PO 500 mg BID NAN Administration Dextrose/Sodium Chloride 1,000 mls @ 60 mls/hr 05/11/18 10:00 05/12/18 02:16 Dextrose 5%/0.45% Ns 1000 Ml IV 60 mls/hr .[id number] NAN Administration Morphine Sulfate 2 mg 05/08/18 00:36 05/12/18 00:07 Morphine IV 2 mg Q4H PRN Administration Pain, moderate (4-7) Ondansetron HCl 4 mg 05/06/18 12:00 05/07/18 14:18 Zofran Inj IVP 4 mg Q6H PRN Administration Nausea/Vomiting Propranolol HCl 20 mg 05/01/18 19:15 05/12/18 10:07 Inderal PO 20 mg TID NAN Administration - Patient Studies Lab Studies: Lab Studies 05/12/18 05/12/18 05/12/18 Range/Units 10:06 10:06 06:29 WBC 23.8 H (4.8-10.8) K/uL RBC 2.98 L (3.80-5.20) Mil/uL Hgb 8.6 L (11.0-16.0) g/dL Hct 26.9 L (34.0-47.0) % MCV 90.3 (81.0-99.0) fL MCH 28.8 (27.0-31.0) pg MCHC 31.9 L (33.0-37.0) g/dL RDW 19.2 H (11.5-14.5) % Plt Count 51 L (130-400) K/uL MPV 13.5 H (7.2-11.7) fL Neut % (Auto) 87.5 H (50.0-75.0) % Lymph % (Auto) 6.9 L (20.0-40.0) % [place] % (Auto) 4.3 (0.0-10.0) % Eos % (Auto) 0.8 (0.0-4.0) % Baso % (Auto) 0.5 (0.0-2.0) % Neut # (Auto) 20.8 H (1.8-7.0) K/uL Lymph # (Auto) 1.6 (1.0-4.3) K/uL [place] # (Auto) 1.0 H (0.0-0.8) K/uL Eos # (Auto) 0.2 (0.0-0.7) K/uL Baso # (Auto) 0.1 (0.0-0.2) K/uL Neutrophils % (Manual) (50-75) % Lymphocytes % (Manual) (20-40) % Monocytes % (Manual) (0-10) % Eosinophils % (Manual) (0-4) % Nucleated RBC % (0-0) % Platelet Estimate (NORMAL) Large Platelets Giant Platelets Polychromasia Hypochromasia (manual) Poikilocytosis (manual Basophilic Stippling Anisocytosis (manual) Microcytosis (manual) Target Cells Ovalocytes Sodium 131 L (132-148) mmol/L Potassium 5.6 H (3.6-5.2) mmol/L Chloride 101 (98-107) mmol/L Carbon Dioxide 20 L (22-30) mmol/L Anion Gap 15 (10-20) BUN 88 H (7-17) mg/dL Creatinine 2.4 H (0.7-1.2) mg/dL Est GFR ( Amer) 24 Est GFR (Non-Af Amer) 20 Random Glucose 88 (65-105) mg/dL Calcium 7.3 L (8.6-10.4) mg/dl Total Bilirubin 0.6 (0.2-1.3) mg/dL AST 39 H D (14-36) U/L ALT 42 (9-52) U/L Alkaline Phosphatase 183 H D (38-126) U/L Total Protein 5.1 L (6.3-8.3) g/dL Albumin 2.3 L (3.5-5.0) g/dL Globulin 2.8 (2.2-3.9) gm/dL Albumin/Globulin Ratio 0.8 L (1.0-2.1) Procalcitonin (0.19-0.49) NG/ML Blood Type A POSITIVE Antibody Screen Negative 05/12/18 05/11/18 Range/Units 06:29 11:18 WBC 19.3 H (4.8-10.8) K/uL RBC 2.42 L (3.80-5.20) Mil/uL Hgb 6.8 L (11.0-16.0) g/dL Hct 22.1 L (34.0-47.0) % MCV 91.3 (81.0-99.0) fL MCH 28.2 (27.0-31.0) pg MCHC 30.9 L (33.0-37.0) g/dL RDW 19.7 H (11.5-14.5) % Plt Count 55 L (130-400) K/uL MPV 15.3 H (7.2-11.7) fL Neut % (Auto) 88.7 H (50.0-75.0) % Lymph % (Auto) 5.2 L (20.0-40.0) % [place] % (Auto) 5.0 (0.0-10.0) % Eos % (Auto) 0.8 (0.0-4.0) % Baso % (Auto) 0.3 (0.0-2.0) % Neut # (Auto) 17.1 H (1.8-7.0) K/uL Lymph # (Auto) 1.0 (1.0-4.3) K/uL [place] # (Auto) 1.0 H (0.0-0.8) K/uL Eos # (Auto) 0.2 (0.0-0.7) K/uL Baso # (Auto) 0.1 (0.0-0.2) K/uL Neutrophils % (Manual) 92 H (50-75) % Lymphocytes % (Manual) 2 L (20-40) % Monocytes % (Manual) 5 (0-10) % Eosinophils % (Manual) 1 (0-4) % Nucleated RBC % 18 H (0-0) % Platelet Estimate Decreased L (NORMAL) Large Platelets Present Giant Platelets Present Polychromasia Slight Hypochromasia (manual) Moderate Poikilocytosis (manual Slight Basophilic Stippling Slight Anisocytosis (manual) Slight Microcytosis (manual) Slight Target Cells Slight Ovalocytes Slight Sodium (132-148) mmol/L Potassium (3.6-5.2) mmol/L Chloride (98-107) mmol/L Carbon Dioxide (22-30) mmol/L Anion Gap (10-20) BUN (7-17) mg/dL Creatinine (0.7-1.2) mg/dL Est GFR ( Amer) Est GFR (Non-Af Amer) Random Glucose (65-105) mg/dL Calcium (8.6-10.4) mg/dl Total Bilirubin (0.2-1.3) mg/dL AST (14-36) U/L ALT (9-52) U/L Alkaline Phosphatase (38-126) U/L Total Protein (6.3-8.3) g/dL Albumin (3.5-5.0) g/dL Globulin (2.2-3.9) gm/dL Albumin/Globulin Ratio (1.0-2.1) Procalcitonin 2.73 H (0.19-0.49) NG/ML Blood Type Antibody Screen Laboratory Results - last 24 hr 05/11/18 05/12/18 05/12/18 11:18 06:29 06:29 WBC 19.3 H RBC 2.42 L Hgb 6.8 L Hct 22.1 L MCV 91.3 MCH 28.2 MCHC 30.9 L RDW 19.7 H Plt Count 55 L MPV 15.3 H Neut % (Auto) 88.7 H Lymph % (Auto) 5.2 L [place] % (Auto) 5.0 Eos % (Auto) 0.8 Baso % (Auto) 0.3 Neut # (Auto) 17.1 H Lymph # (Auto) 1.0 [place] # (Auto) 1.0 H Eos # (Auto) 0.2 Baso # (Auto) 0.1 Neutrophils % (Manual) 92 H Lymphocytes % (Manual) 2 L Monocytes % (Manual) 5 Eosinophils % (Manual) 1 Nucleated RBC % 18 H Platelet Estimate Decreased L Large Platelets Present Giant Platelets Present Polychromasia Slight Hypochromasia (manual) Moderate Poikilocytosis (manual Slight Basophilic Stippling Slight Anisocytosis (manual) Slight Microcytosis (manual) Slight Target Cells Slight Ovalocytes Slight Sodium 131 L Potassium 5.6 H Chloride 101 Carbon Dioxide 20 L Anion Gap 15 BUN 88 H Creatinine 2.4 H Est GFR ( Amer) 24 Est GFR (Non-Af Amer) 20 Random Glucose 88 Calcium 7.3 L Total Bilirubin 0.6 AST 39 H D ALT 42 Alkaline Phosphatase 183 H D Total Protein 5.1 L Albumin 2.3 L Globulin 2.8 Albumin/Globulin Ratio 0.8 L Procalcitonin 2.73 H Blood Type Antibody Screen 05/12/18 05/12/18 10:06 10:06 WBC 23.8 H RBC 2.98 L Hgb 8.6 L Hct 26.9 L MCV 90.3 MCH 28.8 MCHC 31.9 L RDW 19.2 H Plt Count 51 L MPV 13.5 H Neut % (Auto) 87.5 H Lymph % (Auto) 6.9 L [place] % (Auto) 4.3 Eos % (Auto) 0.8 Baso % (Auto) 0.5 Neut # (Auto) 20.8 H Lymph # (Auto) 1.6 [place] # (Auto) 1.0 H Eos # (Auto) 0.2 Baso # (Auto) 0.1 Neutrophils % (Manual) Lymphocytes % (Manual) Monocytes % (Manual) Eosinophils % (Manual) Nucleated RBC % Platelet Estimate Large Platelets Giant Platelets Polychromasia Hypochromasia (manual) Poikilocytosis (manual Basophilic Stippling Anisocytosis (manual) Microcytosis (manual) Target Cells Ovalocytes Sodium Potassium Chloride Carbon Dioxide Anion Gap BUN Creatinine Est GFR ( Amer) Est GFR (Non-Af Amer) Random Glucose Calcium Total Bilirubin AST ALT Alkaline Phosphatase Total Protein Albumin Globulin Albumin/Globulin Ratio Procalcitonin Blood Type A POSITIVE Antibody Screen Negative Review of Systems - Review of Systems All systems: reviewed and no additional remarkable complaints except Critical Care Progress Note - Nutrition Nutrition: Nutrition Category Date Time Status Heart Healthy Diet [DIET] Diets 04/30/18 Breakfast Active Assessment/Plan - Assessment and Plan (Free Text) Plan: 67 year old female with past medical history of arthritis, HTN, myelofibrosis with chronic leukocytosis who was admitted for right flank pain following failed outpatient treatment of pyelonephritis. CT revealed right hydroureteronephrosis with ureteral stricture, and she is s/p ureteral stent insertion by Dr. Irvin on 04/25/18. Patient developed atrial fibrillation, currently on PO Cardizem. RLE DVT, on Eliquis. CT abdomen showing acute hemorrhagic process emanating from the spleen s/p IR splenic artery embolization . Neuro: - AAO x3 - Pain control Pulm: - Nasal cannula as tolerated - Maintain SPO2 > 92 % CV: - Currently hemodynamically stable - Cardiology Dr. Alex consulted. Recs appreciated. - Eliquis held 09/20 acute hemorrhagic process emanating from the spleen - ECHO shows normal left ventricle systolic function. EF 65-70%. Moderate pulmonary HTN. - Dopplers shows acute thrombosis of right gastrocnemius vein with severe reduction of venous return. GI: - Pepcid 20mg PO daily - Continue Inderal 20mg TID - 05/06 CT abdomen showed acute hemorrhagic process emanating from the spleen - s/p IR splenic artery embolization Renal: - SOFIA with worsening Cr 2.4 this am - Urine culture shows yeast species - Monitor I and O - Replete electrolytes as needed - Urology Dr Flor Irvin consulted. Recs appreciated. Heme: - Hx of myelofibrosis with chronic leukocytosis - Dr. Mcbride consulted. Recs appreciated. - Eliquis held due to splenic hemorrhage - Hb 8.6 - Hydrea 500mg PO BID ID: - Afebrile and leukocytosis trending down - Urine culture shows yeast species - Cefepime 1 gm givne - ID Dr. Jackson consulted. Recs appreciated. - Fluconazole 100mg PO daily (05/07-05/11) Endo: - Maintain euglycemia PPX: Lovenox, Pepcid Case and plan was reviewed and discussed with Dr. Gale - Date & Time Date: 05/12/18 Time: 08:00
--- NOTE | 2018-05-12 18:31 | CP.PCM.PN ---
Subjective - Date & Time of Evaluation Date of Evaluation: 05/12/18 Time of Evaluation: 18:23 - Subjective Subjective: INFECTIOUS DISEASE ICU#5 PROGRESS NOTES JANY PATTERSON MD, FACP ICU #5 05/12/2018 CHART REVIEWED PT EXAMINED CASE DISCUSSED QUESTION OF REPEAT URINALYSIS DONE DEMONSTRATING LEUKOCYTES IN HER URINE(STENTED) I ASKED DR MILLER TO REPEAT BOTH URINALYSIS AND C/S TODAY, ABOUT 15 MINUTES AGO, HER URINE C/S DEMONSTRATED BOTH GRAM NEG'S AND GRAM +, MORE THAN 100,000 CFU. PATIENT HAS ALREADY RECEIVED A DOSE OF CEFEPIME AND WILL GIVE ZYVOX TO R/O RESISTANT ENTEROCOCCUS INFECTION. WATCH MAJOR INTERACTIONS, PREFER TO AVOID RENAL TOXIC DRUGS. TO RECHECK TOMORROW. LUNGS DECREASED BREATH SOUNDS COR NOTED ABD LEFT SIDED PAIN DOES LOOK WEAK AND TIRED. JANY PATTERSON MD, FACP CALL ME FOR ANY ID ISSUES. Objective - Vital Signs/Intake and Output Vital Signs (last 24 hours): Temp Pulse Resp BP Pulse Ox 99 F 74 17 86/37 L 98 05/12/18 16:00 05/12/18 18:00 05/12/18 18:00 05/12/18 17:54 05/12/18 18:00 Intake and Output: 05/12/18 05/12/18 06:59 18:59 Intake Total 1280 1060 Output Total 1200 850 Balance 80 210 - Medications Medications: Current Medications Acetaminophen (Tylenol 325mg Tab) 650 mg PO Q6 PRN PRN Reason: Pain, Mild (1-3) Last Admin: 05/12/18 14:16 Dose: 650 mg Enoxaparin Sodium (Lovenox) 30 mg SC DAILY [facility] Last Admin: 05/12/18 11:24 Dose: 30 mg Famotidine (Pepcid) 20 mg PO DAILY [facility] Last Admin: 05/12/18 10:07 Dose: 20 mg Home Med (Patient's Own Medication) 1 tab PO BID [facility] Last Admin: 05/12/18 18:22 Dose: 1 tab Hydroxyurea (Hydrea) 500 mg PO BID [facility] Last Admin: 05/12/18 18:21 Dose: 500 mg Dextrose/Sodium Chloride (Dextrose 5%/0.45% Ns 1000 Ml) 1,000 mls @ 60 mls/hr IV .[id number] [facility] Last Admin: 05/12/18 02:16 Dose: 60 mls/hr Linezolid (Zyvox) 600 mg PO Q12H NAN Linezolid (Zyvox) 600 mg PO BID NAN PRN Reason: Protocol Morphine Sulfate (Morphine) 2 mg IV Q4H PRN PRN Reason: Pain, moderate (4-7) Last Admin: 05/12/18 00:07 Dose: 2 mg Ondansetron HCl (Zofran Inj) 4 mg IVP Q6H PRN PRN Reason: Nausea/Vomiting Last Admin: 05/07/18 14:18 Dose: 4 mg Propranolol HCl (Inderal) 20 mg PO TID [facility] Last Admin: 05/12/18 18:05 Dose: Not Given - Labs Labs: 05/12/18 10:06 05/12/18 06:29 PT 16.9 SECONDS (9.7-12.2) H 05/06/18 12:09 INR 1.5 05/06/18 12:09 APTT 32 SECONDS (21-34) 05/06/18 12:09
--- NOTE | 2018-05-12 22:44 | CP.PCM.PN ---
Subjective - Date & Time of Evaluation Date of Evaluation: 05/12/18 Time of Evaluation: 11:50 - Subjective Subjective: clinically same Objective - Vital Signs/Intake and Output Vital Signs (last 24 hours): Temp Pulse Resp BP Pulse Ox 97.9 F 79 24 148/75 97 05/12/18 20:00 05/12/18 22:00 05/12/18 22:00 05/12/18 21:54 05/12/18 22:00 Intake and Output: 05/12/18 05/13/18 18:59 06:59 Intake Total 1270 60 Output Total 900 0 Balance 370 60 - Medications Medications: Current Medications Acetaminophen (Tylenol 325mg Tab) 650 mg PO Q6 PRN PRN Reason: Pain, Mild (1-3) Last Admin: 05/12/18 14:16 Dose: 650 mg Enoxaparin Sodium (Lovenox) 30 mg SC DAILY [facility] Last Admin: 05/12/18 11:24 Dose: 30 mg Famotidine (Pepcid) 20 mg PO DAILY [facility] Last Admin: 05/12/18 10:07 Dose: 20 mg Home Med (Patient's Own Medication) 1 tab PO BID [facility] Last Admin: 05/12/18 18:22 Dose: 1 tab Hydroxyurea (Hydrea) 500 mg PO BID [facility] Last Admin: 05/12/18 18:21 Dose: 500 mg Dextrose/Sodium Chloride (Dextrose 5%/0.45% Ns 1000 Ml) 1,000 mls @ 60 mls/hr IV .[id number] [facility] Last Admin: 05/12/18 18:23 Dose: 60 mls/hr Linezolid (Zyvox) 600 mg PO BID [facility] PRN Reason: Protocol Last Admin: 05/12/18 18:36 Dose: 600 mg Morphine Sulfate (Morphine) 2 mg IV Q4H PRN PRN Reason: Pain, moderate (4-7) Last Admin: 05/12/18 00:07 Dose: 2 mg Ondansetron HCl (Zofran Inj) 4 mg IVP Q6H PRN PRN Reason: Nausea/Vomiting Last Admin: 05/07/18 14:18 Dose: 4 mg Propranolol HCl (Inderal) 20 mg PO TID [facility] Last Admin: 05/12/18 18:05 Dose: Not Given - Labs Labs: 05/12/18 10:06 05/12/18 06:29 PT 16.9 SECONDS (9.7-12.2) H 05/06/18 12:09 INR 1.5 05/06/18 12:09 APTT 32 SECONDS (21-34) 05/06/18 12:09 - Constitutional Appears: Non-toxic - Head Exam Head Exam: NORMOCEPHALIC - Eye Exam Eye Exam: Normal appearance - ENT Exam ENT Exam: Mucous Membranes Moist - Neck Exam Neck Exam: Normal Inspection - Respiratory Exam Respiratory Exam: Decreased Breath Sounds - Cardiovascular Exam Cardiovascular Exam: +S1, +S2 - GI/Abdominal Exam GI & Abdominal Exam: Diminished Bowel Sounds - Rectal Exam Rectal Exam: Deferred
--- NOTE | 2018-05-13 00:02 | CP.PCM.PN ---
Subjective - Date & Time of Evaluation Date of Evaluation: 05/09/18 Time of Evaluation: 19:00 - Subjective Subjective: Has some left upper quadrant pain, family at bedside. Objective - Vital Signs/Intake and Output Vital Signs (last 24 hours): Temp Pulse Resp BP Pulse Ox 97.9 F 76 24 149/76 100 05/12/18 20:00 05/12/18 23:00 05/12/18 23:00 05/12/18 22:54 05/12/18 23:00 Intake and Output: 05/12/18 05/13/18 18:59 06:59 Intake Total 1270 60 Output Total 900 0 Balance 370 60 - Medications Medications: Current Medications Acetaminophen (Tylenol 325mg Tab) 650 mg PO Q6 PRN PRN Reason: Pain, Mild (1-3) Last Admin: 05/12/18 14:16 Dose: 650 mg Enoxaparin Sodium (Lovenox) 30 mg SC DAILY [facility] Last Admin: 05/12/18 11:24 Dose: 30 mg Famotidine (Pepcid) 20 mg PO DAILY [facility] Last Admin: 05/12/18 10:07 Dose: 20 mg Home Med (Patient's Own Medication) 1 tab PO BID [facility] Last Admin: 05/12/18 18:22 Dose: 1 tab Hydroxyurea (Hydrea) 500 mg PO BID [facility] Last Admin: 05/12/18 18:21 Dose: 500 mg Dextrose/Sodium Chloride (Dextrose 5%/0.45% Ns 1000 Ml) 1,000 mls @ 60 mls/hr IV .[id number] [facility] Last Admin: 05/12/18 18:23 Dose: 60 mls/hr Linezolid (Zyvox) 600 mg PO BID [facility] PRN Reason: Protocol Last Admin: 05/12/18 18:36 Dose: 600 mg Morphine Sulfate (Morphine) 2 mg IV Q4H PRN PRN Reason: Pain, moderate (4-7) Last Admin: 05/12/18 00:07 Dose: 2 mg Ondansetron HCl (Zofran Inj) 4 mg IVP Q6H PRN PRN Reason: Nausea/Vomiting Last Admin: 05/07/18 14:18 Dose: 4 mg Propranolol HCl (Inderal) 20 mg PO TID [facility] Last Admin: 05/12/18 18:05 Dose: Not Given - Labs Labs: 05/12/18 10:06 05/12/18 06:29 PT 16.9 SECONDS (9.7-12.2) H 05/06/18 12:09 INR 1.5 05/06/18 12:09 APTT 32 SECONDS (21-34) 05/06/18 12:09 - Head Exam Head Exam: ATRAUMATIC - Eye Exam Eye Exam: Normal appearance - ENT Exam ENT Exam: Mucous Membranes Dry - Respiratory Exam Respiratory Exam: NORMAL BREATHING PATTERN - Cardiovascular Exam Cardiovascular Exam: +S1, +S2 - GI/Abdominal Exam GI & Abdominal Exam: Normal Bowel Sounds Assessment and Plan (1) Leucocytosis Assessment & Plan: secondary to myelofibrosis improving Status: Acute (2) Thrombocytopenia Assessment & Plan: secondary to myelofibrosis Status: Acute (3) Hepatosplenomegaly Assessment & Plan: secondary to myelofibrosis s/p splenic emoblization for splenic hemorrhage Status: Acute (4) Anemia Assessment & Plan: chronic disease myelofibrosis Status: Acute (5) DVT (deep venous thrombosis) Assessment & Plan: recent splenic hemorrhage s/p embolization on prophylactic anticoagulation Status: Acute (6) Myelofibrosis Assessment & Plan: on Jakafi and hydrea Status: Acute
--- NOTE | 2018-05-13 00:04 | CP.PCM.PN ---
Subjective - Date & Time of Evaluation Date of Evaluation: 05/10/18 Time of Evaluation: 17:00 - Subjective Subjective: Feeling better Objective - Vital Signs/Intake and Output Vital Signs (last 24 hours): Temp Pulse Resp BP Pulse Ox 97.9 F 76 24 149/76 100 05/12/18 20:00 05/12/18 23:00 05/12/18 23:00 05/12/18 22:54 05/12/18 23:00 Intake and Output: 05/12/18 05/13/18 18:59 06:59 Intake Total 1270 240 Output Total 900 100 Balance 370 140 - Medications Medications: Current Medications Acetaminophen (Tylenol 325mg Tab) 650 mg PO Q6 PRN PRN Reason: Pain, Mild (1-3) Last Admin: 05/12/18 14:16 Dose: 650 mg Enoxaparin Sodium (Lovenox) 30 mg SC DAILY [facility] Last Admin: 05/12/18 11:24 Dose: 30 mg Famotidine (Pepcid) 20 mg PO DAILY [facility] Last Admin: 05/12/18 10:07 Dose: 20 mg Home Med (Patient's Own Medication) 1 tab PO BID [facility] Last Admin: 05/12/18 18:22 Dose: 1 tab Hydroxyurea (Hydrea) 500 mg PO BID [facility] Last Admin: 05/12/18 18:21 Dose: 500 mg Dextrose/Sodium Chloride (Dextrose 5%/0.45% Ns 1000 Ml) 1,000 mls @ 60 mls/hr IV .[id number] [facility] Last Admin: 05/12/18 18:23 Dose: 60 mls/hr Linezolid (Zyvox) 600 mg PO BID [facility] PRN Reason: Protocol Last Admin: 05/12/18 18:36 Dose: 600 mg Morphine Sulfate (Morphine) 2 mg IV Q4H PRN PRN Reason: Pain, moderate (4-7) Last Admin: 05/12/18 00:07 Dose: 2 mg Ondansetron HCl (Zofran Inj) 4 mg IVP Q6H PRN PRN Reason: Nausea/Vomiting Last Admin: 05/07/18 14:18 Dose: 4 mg Propranolol HCl (Inderal) 20 mg PO TID [facility] Last Admin: 05/12/18 18:05 Dose: Not Given - Labs Labs: 05/12/18 10:06 05/12/18 06:29 PT 16.9 SECONDS (9.7-12.2) H 05/06/18 12:09 INR 1.5 05/06/18 12:09 APTT 32 SECONDS (21-34) 05/06/18 12:09 - Head Exam Head Exam: ATRAUMATIC - Eye Exam Eye Exam: Normal appearance - ENT Exam ENT Exam: Mucous Membranes Dry - Respiratory Exam Respiratory Exam: NORMAL BREATHING PATTERN - Cardiovascular Exam Cardiovascular Exam: +S1, +S2 - GI/Abdominal Exam GI & Abdominal Exam: Normal Bowel Sounds Assessment and Plan (1) Leucocytosis Assessment & Plan: secondary to myelofibrosis improving Status: Acute (2) Thrombocytopenia Assessment & Plan: secondary to myelofibrosis Status: Acute (3) Hepatosplenomegaly Assessment & Plan: secondary to myelofibrosis s/p splenic emoblization for splenic hemorrhage Status: Acute (4) Anemia Assessment & Plan: chronic disease myelofibrosis Status: Acute (5) DVT (deep venous thrombosis) Assessment & Plan: recent splenic hemorrhage s/p embolization on prophylactic anticoagulation Status: Acute (6) Myelofibrosis Assessment & Plan: on Jakafi and hydrea Status: Acute
--- NOTE | 2018-05-13 00:06 | CP.PCM.PN ---
Subjective - Date & Time of Evaluation Date of Evaluation: 05/12/18 Time of Evaluation: 20:00 - Subjective Subjective: Has some right upper quadrant pain, feels tired. Objective - Vital Signs/Intake and Output Vital Signs (last 24 hours): Temp Pulse Resp BP Pulse Ox 97.9 F 76 24 149/76 100 05/12/18 20:00 05/12/18 23:00 05/12/18 23:00 05/12/18 22:54 05/12/18 23:00 Intake and Output: 05/12/18 05/13/18 18:59 06:59 Intake Total 1270 240 Output Total 900 100 Balance 370 140 - Medications Medications: Current Medications Acetaminophen (Tylenol 325mg Tab) 650 mg PO Q6 PRN PRN Reason: Pain, Mild (1-3) Last Admin: 05/12/18 14:16 Dose: 650 mg Enoxaparin Sodium (Lovenox) 30 mg SC DAILY [facility] Last Admin: 05/12/18 11:24 Dose: 30 mg Famotidine (Pepcid) 20 mg PO DAILY [facility] Last Admin: 05/12/18 10:07 Dose: 20 mg Home Med (Patient's Own Medication) 1 tab PO BID [facility] Last Admin: 05/12/18 18:22 Dose: 1 tab Hydroxyurea (Hydrea) 500 mg PO BID [facility] Last Admin: 05/12/18 18:21 Dose: 500 mg Dextrose/Sodium Chloride (Dextrose 5%/0.45% Ns 1000 Ml) 1,000 mls @ 60 mls/hr IV .[id number] [facility] Last Admin: 05/12/18 18:23 Dose: 60 mls/hr Linezolid (Zyvox) 600 mg PO BID [facility] PRN Reason: Protocol Last Admin: 05/12/18 18:36 Dose: 600 mg Morphine Sulfate (Morphine) 2 mg IV Q4H PRN PRN Reason: Pain, moderate (4-7) Last Admin: 05/12/18 00:07 Dose: 2 mg Ondansetron HCl (Zofran Inj) 4 mg IVP Q6H PRN PRN Reason: Nausea/Vomiting Last Admin: 05/07/18 14:18 Dose: 4 mg Propranolol HCl (Inderal) 20 mg PO TID [facility] Last Admin: 05/12/18 18:05 Dose: Not Given - Labs Labs: 05/12/18 10:06 05/12/18 06:29 PT 16.9 SECONDS (9.7-12.2) H 05/06/18 12:09 INR 1.5 05/06/18 12:09 APTT 32 SECONDS (21-34) 05/06/18 12:09 - Head Exam Head Exam: ATRAUMATIC - Eye Exam Eye Exam: Normal appearance - ENT Exam ENT Exam: Mucous Membranes Dry - Respiratory Exam Respiratory Exam: NORMAL BREATHING PATTERN - Cardiovascular Exam Cardiovascular Exam: +S1, +S2 - GI/Abdominal Exam GI & Abdominal Exam: Normal Bowel Sounds Assessment and Plan (1) Leucocytosis Assessment & Plan: secondary to myelofibrosis improving Status: Acute (2) Thrombocytopenia Assessment & Plan: secondary to myelofibrosis Status: Acute (3) Hepatosplenomegaly Assessment & Plan: secondary to myelofibrosis s/p splenic emoblization for splenic hemorrhage Status: Acute (4) Anemia Assessment & Plan: chronic disease myelofibrosis Status: Acute (5) DVT (deep venous thrombosis) Assessment & Plan: recent splenic hemorrhage s/p embolization on prophylactic anticoagulation Status: Acute (6) Myelofibrosis Assessment & Plan: on Jakafi and hydrea Status: Acute
[2018-05-13 06:42] LABS: ALB/GLOB RATIO 0.8 (1.0-2.1); ALBUMIN 2.3 g/dL (3.5-5.0); CALCIUM 7.3 mg/dl (8.6-10.4)
[2018-05-13 06:47] LABS: BASO # 0.2 K/uL (0.0-0.2); EOS # 0.2 K/uL (0.0-0.7); EOS % 1.1 % (0.0-4.0); HEMOGLOBIN 8.7 g/dL (11.0-16.0); LYMPH # 1.1 K/uL (1.0-4.3); LYMPH % 5.6 % (20.0-40.0); MEAN CELL VOLUME 91.1 fL (81.0-99.0); MEAN CORPUSCULAR HGB CONC 31.9 g/dL (33.0-37.0); MEAN PLATELET VOLUME 13.6 fL (7.2-11.7); MONO # 1.1 K/uL (0.0-0.8); MONO % 5.7 % (0.0-10.0); NEUT # 16.7 K/uL (1.8-7.0); NEUT % 86.6 % (50.0-75.0); PLATELET COUNT 57 K/uL (130-400); RBC 3.01 Mil/uL (3.80-5.20); WHITE BLOOD COUNT 19.2 K/uL (4.8-10.8)
[2018-05-13 09:47] LABS: ANISOCYTOSIS SLIGHT; BANDS 1 % (0-2); EOSINOPHIL 1 % (0-4); LYMPHOCYTE 5 % (20-40); MICROCYTOSIS SLIGHT; MONOCYTE 6 % (0-10); NEUTROPHIL 87 % (50-75); NUCLEATED RED BLOOD CELL 16 % (0-0); PLATELET ESTIMATE DECREASED (NORMAL); POIKILOCYTOSIS SLIGHT; TOTAL CELLS COUNTED 100
[2018-05-13 09:48] LABS: BURR CELLS SLIGHT; HYPOCHROMIC SLIGHT; OVALOCYTES SLIGHT; POLYCHROMIC SLIGHT; TARGET CELLS SLIGHT; TEARDROP CELLS SLIGHT
[2018-05-13 09:49] LABS: GIANT PLATELETS PRESENT; LARGE PLATELETS PRESENT
[2018-05-13] MEDS: JAKAFI 10 MG PO SCH (09:58)
[2018-05-13] MEDS: Enoxaparin 30 mg Syringe SC SCH (09:58)
--- NOTE | 2018-05-13 10:52 | CP.CCUPN ---
CCU Subjective - Physician Review Subjective (Free Text): Resident Progress Note for Dr. Gale Patient examined at bedside. No acute events overnight. Patient complains of left sided abdominal pain, unchanged from yesterday. Patient is awaiting transfer to transitional care unit. Denies fevers, chills, chest pain, shortness of breath. Critical Care Time Spent (in minutes): 35 CCU Objective - Vital Signs / Intake & Output Vital Signs (Last 4 hours): Vital Signs Temp Pulse Resp BP Pulse Ox 05/13/18 09:00 97.9 F 71 19 95 05/13/18 08:54 75 24 124/70 94 L 05/13/18 06:54 74 16 98 Intake and Output (Last 8hrs): Intake & Output 05/12/18 05/13/18 05/13/18 22:59 06:59 14:59 Intake Total 880 730 180 Output Total 450 450 0 Balance 430 280 180 Weight 190 lb 1.6 oz Intake: Intake, IV Amount 480 480 180 Right PICC 480 480 180 Oral 400 250 0 Output: Urine 450 450 0 Urine, Voided 450 450 0 Other: # Voids Urine, Voided 1 1 # Bowel Movements 0 0 0 - Physical Exam Head: Positive for: Atraumatic, Normocephalic Pupils: Positive for: PERRL Extroacular Muscles: Positive for: EOMI Conjunctiva: Positive for: Normal Mouth: Positive for: Moist Mucous Membranes Respiratory/Chest: Positive for: Good Air Exchange, Decreased Breath Sounds. Negative for: Respiratory Distress, Accessory Muscle Use Cardiovascular: Positive for: Regular Rate and Rhythm, Normal S1, S2 Abdomen: Positive for: Tenderness (left upper quadrant), Normal Bowel Sounds, Other (Enlarged liver palpable). Negative for: Distention, Peritoneal Signs, Guarding Back: Negative for: CVA Tenderness Upper Extremity: Positive for: NORMAL PULSES, Capillary Refill < 2s. Negative for: Edema Lower Extremity: Positive for: NORMAL PULSES. Negative for: Edema, CALF TENDERNESS Neurological: Positive for: GCS=15, CN II-XII Intact Skin: Positive for: Warm, Dry, Normal Color Psychiatric: Positive for: Alert, Oriented x 3 - Medications Active Medications: Active Medications Generic Name Dose Route Start Last Admin Trade Name Freq PRN Reason Stop Dose Admin Acetaminophen 650 mg 04/26/18 17:00 05/13/18 03:30 Tylenol 325mg Tab PO 650 mg Q6 PRN Administration Pain, Mild (1-3) Enoxaparin Sodium 30 mg 05/07/18 10:00 05/13/18 09:58 Lovenox SC 30 mg DAILY NAN Administration Famotidine 20 mg 04/27/18 10:00 05/13/18 09:59 Pepcid PO 20 mg DAILY NAN Administration Home Med 1 tab 05/10/18 20:30 05/13/18 09:58 Patient's Own Medication PO 1 tab BID NAN Administration Hydroxyurea 500 mg 05/04/18 18:00 05/13/18 09:58 Hydrea PO 500 mg BID NAN Administration Dextrose/Sodium Chloride 1,000 mls @ 60 mls/hr 05/11/18 10:00 05/12/18 18:23 Dextrose 5%/0.45% Ns 1000 Ml IV 60 mls/hr .[id number] NAN Administration Linezolid 600 mg 05/12/18 18:30 05/13/18 09:59 Zyvox PO 600 mg BID NAN Administration Protocol Morphine Sulfate 2 mg 05/08/18 00:36 05/12/18 00:07 Morphine IV 2 mg Q4H PRN Administration Pain, moderate (4-7) Ondansetron HCl 4 mg 05/06/18 12:00 05/07/18 14:18 Zofran Inj IVP 4 mg Q6H PRN Administration Nausea/Vomiting Propranolol HCl 20 mg 05/01/18 19:15 05/13/18 09:58 Inderal PO 20 mg TID NAN Administration - Patient Studies Lab Studies: Microbiology Studies 05/11/18 11:18 Urine Culture - Preliminary Urine Klebsiella Pneumoniae Ssp Pneu Enterococcus Faecalis Lab Studies 05/13/18 05/13/18 Range/Units 06:10 06:10 WBC 19.2 H (4.8-10.8) K/uL RBC 3.01 L (3.80-5.20) Mil/uL Hgb 8.7 L (11.0-16.0) g/dL Hct 27.5 L (34.0-47.0) % MCV 91.1 (81.0-99.0) fL MCH 29.0 (27.0-31.0) pg MCHC 31.9 L (33.0-37.0) g/dL RDW 19.0 H (11.5-14.5) % Plt Count 57 L (130-400) K/uL MPV 13.6 H (7.2-11.7) fL Neut % (Auto) 86.6 H (50.0-75.0) % Lymph % (Auto) 5.6 L (20.0-40.0) % [place] % (Auto) 5.7 (0.0-10.0) % Eos % (Auto) 1.1 (0.0-4.0) % Baso % (Auto) 1.0 (0.0-2.0) % Neut # (Auto) 16.7 H (1.8-7.0) K/uL Lymph # (Auto) 1.1 (1.0-4.3) K/uL [place] # (Auto) 1.1 H (0.0-0.8) K/uL Eos # (Auto) 0.2 (0.0-0.7) K/uL Baso # (Auto) 0.2 (0.0-0.2) K/uL Neutrophils % (Manual) 87 H (50-75) % Band Neutrophils % 1 (0-2) % Lymphocytes % (Manual) 5 L (20-40) % Monocytes % (Manual) 6 (0-10) % Eosinophils % (Manual) 1 (0-4) % Nucleated RBC % 16 H (0-0) % Platelet Estimate Decreased L (NORMAL) Large Platelets Present Giant Platelets Present Polychromasia Slight Hypochromasia (manual) Slight Poikilocytosis (manual Slight Anisocytosis (manual) Slight Microcytosis (manual) Slight Macrocytosis (manual) Slight Target Cells Slight Tear Drop Cells Slight Ovalocytes Slight [place] Cells Slight Sodium 130 L (132-148) mmol/L Potassium 5.1 (3.6-5.2) mmol/L Chloride 101 (98-107) mmol/L Carbon Dioxide 20 L (22-30) mmol/L Anion Gap 14 (10-20) BUN 87 H (7-17) mg/dL Creatinine 2.1 H (0.7-1.2) mg/dL Est GFR ( Amer) 28 Est GFR (Non-Af Amer) 23 Random Glucose 106 H (65-105) mg/dL Calcium 7.3 L (8.6-10.4) mg/dl Phosphorus 6.2 H (2.5-4.5) mg/dL Magnesium 2.0 (1.6-2.3) mg/dL Total Bilirubin 0.7 (0.2-1.3) mg/dL AST 40 H (14-36) U/L ALT 52 D (9-52) U/L Alkaline Phosphatase 151 H (38-126) U/L Total Protein 5.2 L (6.3-8.3) g/dL Albumin 2.3 L (3.5-5.0) g/dL Globulin 2.8 (2.2-3.9) gm/dL Albumin/Globulin Ratio 0.8 L (1.0-2.1) Laboratory Results - last 24 hr 05/13/18 05/13/18 06:10 06:10 WBC 19.2 H RBC 3.01 L Hgb 8.7 L Hct 27.5 L MCV 91.1 MCH 29.0 MCHC 31.9 L RDW 19.0 H Plt Count 57 L MPV 13.6 H Neut % (Auto) 86.6 H Lymph % (Auto) 5.6 L [place] % (Auto) 5.7 Eos % (Auto) 1.1 Baso % (Auto) 1.0 Neut # (Auto) 16.7 H Lymph # (Auto) 1.1 [place] # (Auto) 1.1 H Eos # (Auto) 0.2 Baso # (Auto) 0.2 Neutrophils % (Manual) 87 H Band Neutrophils % 1 Lymphocytes % (Manual) 5 L Monocytes % (Manual) 6 Eosinophils % (Manual) 1 Nucleated RBC % 16 H Platelet Estimate Decreased L Large Platelets Present Giant Platelets Present Polychromasia Slight Hypochromasia (manual) Slight Poikilocytosis (manual Slight Anisocytosis (manual) Slight Microcytosis (manual) Slight Macrocytosis (manual) Slight Target Cells Slight Tear Drop Cells Slight Ovalocytes Slight [place] Cells Slight Sodium 130 L Potassium 5.1 Chloride 101 Carbon Dioxide 20 L Anion Gap 14 BUN 87 H Creatinine 2.1 H Est GFR ( Amer) 28 Est GFR (Non-Af Amer) 23 Random Glucose 106 H Calcium 7.3 L Phosphorus 6.2 H Magnesium 2.0 Total Bilirubin 0.7 AST 40 H ALT 52 D Alkaline Phosphatase 151 H Total Protein 5.2 L Albumin 2.3 L Globulin 2.8 Albumin/Globulin Ratio 0.8 L Review of Systems - Review of Systems All systems: reviewed and no additional remarkable complaints except Critical Care Progress Note - Nutrition Nutrition: Nutrition Category Date Time Status Heart Healthy Diet [DIET] Diets 04/30/18 Breakfast Active Assessment/Plan - Date & Time Date: 05/13/18 Time: 09:30
[2018-05-13] MEDS: Dextrose 5%/0.45% NS 1,000 ML IV SCH (12:00)
[2018-05-13 12:23] VITALS: O2SAT 96
[2018-05-13 13:09] VITALS: PULSE 94; RESP 18; TEMP 99.3
[2018-05-13 14:11] VITALS: BP 124/71
--- NOTE | 2018-05-13 18:00 | CP.PCM.PN ---
Subjective - Date & Time of Evaluation Date of Evaluation: 05/13/18 Time of Evaluation: 17:55 - Subjective Subjective: INFECTIOUS DISEASE PROGRESS NOTES JANY PATTERSON MD, FACP ICU#5 05/13/2018 CHART REVIEWED CASE DISCUSSED WITH RN JUANA PT DISCHARGED EARLIER WITHOUT DIRECT INTERACTIVE DISCUSSION PTS URINE C/S FINALLY MADE AVAILABLE DEMONSTRATING OVER 100,000 CFU OF KLEBSIELLA PNEUMONIA, NO SENSITIVITES AND ALSO ENTEROCOCCUS SENSITIVE TO MANY DRUGS. TEXT SENT TO DR BENSON CONCERNING HOME TREATMENT OF HER URINE SPECIES, WOULD FOLLOW CAREFULLY AND MONITOR HER RENAL STATUS. PLEASE FEEL FREE TO CALL ME ACCORDINGLY FROM THE ID PO[facility] OF [place]. JANY PATTERSON MD, FACP Objective - Vital Signs/Intake and Output Vital Signs (last 24 hours): Temp Pulse Resp BP Pulse Ox 99.3 F 94 H 18 124/71 96 05/13/18 13:00 05/13/18 13:00 05/13/18 13:00 05/13/18 13:54 05/13/18 12:00 Intake and Output: 05/13/18 05/13/18 06:59 18:59 Intake Total 1220 720 Output Total 700 150 Balance 520 570 - Labs Labs: 05/13/18 06:10 05/13/18 06:10 PT 16.9 SECONDS (9.7-12.2) H 05/06/18 12:09 INR 1.5 05/06/18 12:09 APTT 32 SECONDS (21-34) 05/06/18 12:09
--- NOTE | 2018-05-17 15:28 | CARD ---
APPROVED REPORT Date of service: 04/26/2018 EKG Measurement Heart [id number] <Conclusion> Normal sinus rhythm Normal ECG
--- NOTE | 2018-05-17 15:28 | CARD ---
APPROVED REPORT Date of service: 04/28/2018 EKG Measurement Heart [id number] <Conclusion> Atrial fibrillation with premature ventricular or aberrantly conducted complexes ST & T wave abnormality, consider anterolateral ischemia Abnormal ECG
== END 2018-05-13 15:56 | disposition home or self-care (01) | DRG 853 ==
LOC: C.ER 07:38 → C.9E 11:55 → C.3T 12:37 → OBSVTOIN 04-24 17:23 → C.3T 04-26 14:12 → C.9I 04-27 00:10
PROVIDERS: ADMIT Internal Medicine Nephrology; ATTEND Internal Medicine Nephrology
PROC: 0T5B8ZZ Destruction of Bladder, Via Natural or Artificial Opening Endoscopic (ICD-10-PCS; 2018-04-25)
PROC: BT1DZZZ Fluoroscopy of Right Kidney, Ureter and Bladder (ICD-10-PCS; 2018-04-25)
PROC: 0T768DZ Dilation of Right Ureter with Intraluminal Device, Via Natural or Artificial Opening Endoscopic (ICD-10-PCS; principal; 2018-04-25 12:30)
PROC: 02HV33Z Insertion of Infusion Device into Superior Vena Cava, Percutaneous Approach (ICD-10-PCS; 2018-04-28)
PROC: 04L43DZ Occlusion of Splenic Artery with Intraluminal Device, Percutaneous Approach (ICD-10-PCS; 2018-05-06)
PROC: 30233N1 Transfusion of Nonautologous Red Blood Cells into Peripheral Vein, Percutaneous Approach (ICD-10-PCS; 2018-05-07)
DX: A41.9 Sepsis, unspecified organism (principal); I81 Portal vein thrombosis; I50.33 Acute on chronic diastolic (congestive) heart failure; D75.81 Myelofibrosis; N10 Acute pyelonephritis; I82.501 Chronic embolism and thrombosis of unspecified deep veins of right lower extremity; K76.6 Portal hypertension; I47.2 Ventricular tachycardia; I13.0 Hypertensive heart and chronic kidney disease with heart failure and stage 1 through stage 4 chronic kidney disease, or unspecified chronic kidney disease; N13.6 Pyonephrosis; N17.9 Acute kidney failure, unspecified; R65.20 Severe sepsis without septic shock; B96.20 Unspecified Escherichia coli [E. coli] as the cause of diseases classified elsewhere; Z79.01 Long term (current) use of anticoagulants; N18.3 Chronic kidney disease, stage 3 (moderate); K74.60 Unspecified cirrhosis of liver; I27.20 Pulmonary hypertension, unspecified; I48.91 Unspecified atrial fibrillation; D73.5 Infarction of spleen; E11.22 Type 2 diabetes mellitus with diabetic chronic kidney disease; D69.6 Thrombocytopenia, unspecified

== ENCOUNTER 2018-05-14 20:40 | Inpatient (IN) | payer OTHER, MEDICARE ==
[2018-05-14 20:40] VITALS: BMI 29.0
[2018-05-14] MEDS ORDERED: Sodium Chloride 0.9% 1,000 ML IV ONE (21:06)
[2018-05-14] MEDS ORDERED: Sodium Chloride 0.9% 1,000 ML ONE (21:19)
[2018-05-14 21:23] LABS: BASO # 0.1 K/uL (0.0-0.2); BASO % 0.9 % (0.0-2.0); EOS # 0.1 K/uL (0.0-0.7); EOS % 0.6 % (0.0-4.0); HEMOGLOBIN 10.3 g/dL (11.0-16.0); LYMPH # 1.6 K/uL (1.0-4.3); MEAN CORPUSCULAR HEMOGLOBIN 29.3 pg (27.0-31.0); MEAN CORPUSCULAR HGB CONC 32.9 g/dL (33.0-37.0); MONO # 1.2 K/uL (0.0-0.8); MONO % 7.5 % (0.0-10.0); NEUT # 12.8 K/uL (1.8-7.0); RBC 3.53 Mil/uL (3.80-5.20); RED CELL DISTRIBUTION WIDTH 18.7 % (11.5-14.5); WHITE BLOOD COUNT 15.8 K/uL (4.8-10.8)
--- NOTE | 2018-05-14 21:29 | C.PDOC ---
History Of Present Illness 67 y/o female with a PMHx of myelofibrosis, brought in by family after spiking a fever of 103 tonight. Patient was recently hospitalized for 3 weeks with urinary stricture, urosepsis and renal insufficiency, had a stent placed, and was just discharged home yesterday. Her urine culture grew Enterococcus and Klebsiella the latter of which is sensitive to just amikacin, tobramycin, and tigecycline. Since going home, patient reports not feeling well and complains of generalized weakness and has fever to 103.. Otherwise no nausea, vomiting, diarrhea, chest pain, SOB, abdominal pain, dizziness, headache, or other complaints. Time Seen by Provider: 05/14/18 20:55 Chief Complaint (Nursing): Fever History Per: Patient, Family (daughter at bedside) History/Exam Limitations: no limitations Onset/Duration Of Symptoms: Hrs Current Symptoms Are (Timing): Still Present Associated Symptoms: Fever Past Medical History Reviewed: Historical Data, Nursing Documentation, Vital Signs Vital Signs: Last Vital Signs Temp 103.1 F H 05/14/18 21:12 Pulse 113 H 05/14/18 20:51 Resp 46 H 05/14/18 20:51 BP 157/80 H 05/14/18 20:51 Pulse Ox 95 05/14/18 20:51 - Medical History PMH: Arthritis, HTN Denies: Chronic Kidney Disease Family History: States: Unknown Family Hx - Social History Hx Alcohol Use: No Hx Substance Use: No - Immunization History Hx Influenza Vaccination: No Hx Pneumococcal Vaccination: No Review Of Systems Constitutional: Positive for: Fever, Weakness (generalized) Eyes: Negative for: Vision Change Cardiovascular: Negative for: Chest Pain Respiratory: Negative for: Cough, Shortness of Breath Gastrointestinal: Negative for: Nausea, Vomiting, Abdominal Pain, Diarrhea Neurological: Negative for: Numbness, Incoordination, Change in Speech, Altered Mental Status, Headache, Dizziness Physical Exam - Physical Exam Appears: Non-toxic, No Acute Distress Skin: Normal Color, Warm (to touch) Head: Atraumatic, Normacephalic Eye(s): bilateral: Normal Inspection, PERRL, EOMI Oral Mucosa: Moist Neck: Normal ROM, Supple Chest: Symmetrical Cardiovascular: Rhythm Regular (but tachycardic) Respiratory: Normal Breath Sounds, No Rales, No Rhonchi, No Wheezing Gastrointestinal/Abdominal: Bowel Sounds (positive), Soft, No Tenderness, No Distention Extremity: Bilateral: Atraumatic, Normal Color And Temperature, Normal ROM Pulses: Left Dorsalis Pedis: Normal, Right Dorsalis Pedis: Normal Neurological/Psych: Oriented x3, Normal Speech ED Course And Treatment - Laboratory Results Result Diagrams: 05/14/18 21:19 05/14/18 21:19 Lab Interpretation: Abnormal (WBC 15.8, BUN 80, Cr 2.1, HCO3 20, lactate 0.8) O2 Sat by Pulse Oximetry: 95 (RA) Pulse Ox Interpretation: Normal - Physician Consult Information Outcome Of Conversation: Case discussed with Dr Jackson, Dr Gutiérrez, and Dr Dykes. Patient is immunocompromised and will be readmitted to ICU for IV antibiotics. Medical Decision Making Medical Decision Making: Initial Impression: 67 y/o female with fever and recurrent UTIs, PMHx of myelofibrosis Initial Plan: --VBG --Blood work --Blood cultures --IV fluids --Tylenol 650 mg PO --Amoxicillin 500 mg PO Case discussed with ID Dr. Jackson, made aware of U Cx results, and requests Tygacil be given. Spoke with Dr. Keyanna Gutiérrez, who accepts patient for admission. Hem/onc consult (Dr. Olena Mcbride) ordered. Disposition - Disposition Disposition: HOSPITALIZED Disposition Time: 22:01 Condition: FAIR - POA Present On Arrival: None - Clinical Impression Clinical Impression: Pyelonephritis, Renal insufficiency - Scribe Statement The provider has reviewed the documentation as recorded by the Scribe (Val Landa) Provider Attestation: All medical record entries made by the Scribe were at my direction and personally dictated by me. I have reviewed the chart and agree that the record accurately reflects my personal performance of the history, physical exam, medical decision making, and the department course for this patient. I have also personally directed, reviewed, and agree with the discharge instructions and disposition.
[2018-05-14 21:37] LABS: VENOUS BLOOD GAS BASE EXCESS -4.5 mmol/L (0.0-2.0); VENOUS BLOOD GAS PCO2 30 mmHg (40-60); VENOUS BLOOD GAS PO2 32 mm/Hg (30-55); VENOUS BLOOD PH 7.41 (7.32-7.43)
[2018-05-14 22:03] LABS: NRBC % 5.3 % (0.0-2.0)
--- NOTE | 2018-05-14 22:19 | CP.PCM.CON ---
History of Present Illness - History of Present Illness History of Present Illness: 67 y/o female with a PMHx of myelofibrosis, HTN,renal insufficiency brought in by family after spiking a fever of 103 tonight.. Her urine culture from 05/11/18 grew Enterococcus faecalis and Klebsiella pneumoniae,started on amoxicillin and tigecycline in ER as recommended by Infectious disease specialist Since going home, patient reports not feeling well and complains of generalized weakness. Otherwise no nausea, vomiting, diarrhea, chest pain, SOB, abdominal pain, dizziness, headache, or other complaints. patient with HTN,myelofibrosis admitted early april with right flank pain,right hydronephrosis and Ureteral stricture s/p stent,hospital course complicated by atrial fibrillation ,right lower extremity DVT on anticoagulant developed Splenic hemorrhage s/p splenic artery embolization Patient was recently hospitalized for 3 weeks and discharged home yesterday Review of Systems - Review of Systems Systems not reviewed;Unavailable: Unstable Vital Signs, Language Barrier - Constitutional Constitutional: Fever, Weakness - EENT Eyes: absent: Pain Ears: absent: Dizziness Nose/Mouth/Throat: absent: Sore Throat - Cardiovascular Cardiovascular: Pedal Edema. absent: Chest Pain, Dyspnea - Respiratory Respiratory: absent: Cough, Dyspnea - Gastrointestinal Gastrointestinal: absent: Nausea, Vomiting - Genitourinary Genitourinary: absent: Dysuria - Musculoskeletal Musculoskeletal: Arthralgias. absent: Neck Pain - Integumentary Integumentary: absent: Bleeding Lesions - Neurological Neurological: absent: Confusion Past Patient History - Infectious Disease Hx of Infectious Diseases: None - Past Medical History & Family History Past Medical History?: Yes - Past Social History Smoking Status: Never Smoked Home Situation {Lives}: With Family - CARDIAC Hx Hypertension: Yes - PULMONARY Hx Respiratory Disorders: No - NEUROLOGICAL Hx Neurological Disorder: No - HEENT Hx HEENT Problems: No - RENAL Hx Chronic Kidney Disease: No - ENDOCRINE/METABOLIC Hx Endocrine Disorders: No - HEMATOLOGICAL/ONCOLOGICAL Other/Comment: Myelofibrosis - INTEGUMENTARY Hx Dermatological Problems: No - MUSCULOSKELETAL/RHEUMATOLOGICAL Hx Arthritis: Yes - GASTROINTESTINAL Hx Gastrointestinal Disorders: No - GENITOURINARY/GYNECOLOGICAL Hx Genitourinary Disorders: No Hx Bladder Stone: Yes Other/Comment: urethral strictor, - PSYCHIATRIC Hx Substance Use: No - SURGICAL HISTORY Hx Surgeries: No Other/Comment: embolization of spleen/ - ANESTHESIA Hx Anesthesia: No Meds Allergies/Adverse Reactions: Allergies Allergy/AdvReac Type Severity Reaction Status Date / Time ciprofloxacin [From Cipro] AdvReac Verified 05/14/18 20:54 - Medications Medications: Current Medications Tigecycline 100 mg/ Sodium (Chloride) 100 mls @ 100 mls/hr IVPB ONCE ONE Stop: 05/14/18 22:59 Last Admin: 05/14/18 21:41 Dose: 100 mls/hr Physical Exam - Constitutional Appears: Non-toxic, No Acute Distress - Head Exam Head Exam: ATRAUMATIC, NORMAL INSPECTION - Eye Exam Eye Exam: EOMI, PERRL - ENT Exam ENT Exam: Mucous Membranes Moist - Neck Exam Neck exam: Positive for: Normal Inspection - Respiratory Exam Respiratory Exam: Clear to Auscultation Bilateral, NORMAL BREATHING PATTERN - Cardiovascular Exam Cardiovascular Exam: Tachycardia. absent: JVD - GI/Abdominal Exam GI & Abdominal Exam: Normal Bowel Sounds, Soft. absent: Tenderness - Extremities Exam Extremities exam: Positive for: pedal edema, pedal pulses present - Neurological Exam Neurological exam: Alert, Oriented x3 - Skin Skin Exam: Normal Color Results - Vital Signs Recent Vital Signs: Last Vital Signs Temp 103.1 F H 05/14/18 21:12 Pulse 113 H 05/14/18 20:51 Resp 46 H 05/14/18 20:51 BP 157/80 H 05/14/18 20:51 Pulse Ox 95 05/14/18 22:02 - Labs Result Diagrams: 05/14/18 21:19 05/14/18 21:19 Labs: Laboratory Results - last 24 hr 05/14/18 05/14/18 05/14/18 21:19 21:19 21:19 WBC 15.8 H RBC 3.53 L Hgb 10.3 L Hct 31.4 L MCV 89.0 D MCH 29.3 MCHC 32.9 L RDW 18.7 H Plt Count 106 L D MPV 13.0 H Neut % (Auto) 81.0 H Lymph % (Auto) 10.0 L [place] % (Auto) 7.5 Eos % (Auto) 0.6 Baso % (Auto) 0.9 Neut # (Auto) 12.8 H Lymph # (Auto) 1.6 [place] # (Auto) 1.2 H Eos # (Auto) 0.1 Baso # (Auto) 0.1 pO2 VBG pH VBG pCO2 VBG HCO3 VBG Total CO2 VBG O2 Sat (Calc) VBG Base Excess VBG Potassium Glucose Lactate Sodium 132 Potassium 5.1 Chloride 101 Carbon Dioxide 20 L Anion Gap 17 BUN 80 H Creatinine 2.1 H Est GFR ( Amer) 28 Est GFR (Non-Af Amer) 23 Random Glucose 123 H Lactic Acid 0.8 Calcium 8.0 L Total Bilirubin 0.8 AST 32 ALT 43 Alkaline Phosphatase 160 H Total Protein 6.1 L Albumin 3.0 L D Globulin 3.1 Albumin/Globulin Ratio 1.0 Venous Blood Potassium 05/14/18 21:29 WBC RBC Hgb Hct MCV MCH MCHC RDW Plt Count MPV Neut % (Auto) Lymph % (Auto) [place] % (Auto) Eos % (Auto) Baso % (Auto) Neut # (Auto) Lymph # (Auto) [place] # (Auto) Eos # (Auto) Baso # (Auto) pO2 32 VBG pH 7.41 VBG pCO2 30 L VBG HCO3 20.5 VBG Total CO2 19.9 L VBG O2 Sat (Calc) 64.6 VBG Base Excess -4.5 L VBG Potassium 5.2 Glucose 130 H Lactate 1.9 Sodium 135.0 Potassium Chloride 108.0 H Carbon Dioxide Anion Gap BUN Creatinine Est GFR ( Amer) Est GFR (Non-Af Amer) Random Glucose Lactic Acid Calcium Total Bilirubin AST ALT Alkaline Phosphatase Total Protein Albumin Globulin Albumin/Globulin Ratio Venous Blood Potassium 5.2 - Imaging and Cardiology Chest x-ray Additional comment: pending Assessment & Plan - Assessment and Plan (Free Text) Assessment: 67 y/o female with a PMHx of myelofibrosis, HTN,renal insufficiency admitted with Fever and UTI, urine culture from 05/11/18 grew Enterococcus faecalis and Klebsiella pneumoniae 1.Cardiac h/o HTN /atrial fibrillation anticoagulation stopped following splenic hemorrhage f/u with Cardiology 2.ID Enterococcus faecalis and Klebsiella pneumoniae UTI on amoxicillin and tigecycline as recommended bi ID ID f/u Blood cultures 3.Heme/Onc Myelofibrosis,anemia,thrombocytopenia leucocytosis improved on ruxolitinib and hydroxyurea DVT hematology f/u 4.GI splenic hemorrhage s/p emboliztion GI prophylaxis 5.Renal- CRI/UTI on antibiotics f/u Cr 6.Endocrine Glycemic control 7.Neuro AAOx3 8.Pulmonary O2 via NC
[2018-05-15 06:12] LABS: BASO # 0.2 K/uL (0.0-0.2); BASO % 0.9 % (0.0-2.0); EOS % 0.1 % (0.0-4.0); HEMOGLOBIN 9.8 g/dL (11.0-16.0); LYMPH # 1.6 K/uL (1.0-4.3); LYMPH % 9.1 % (20.0-40.0); MEAN CELL VOLUME 88.9 fL (81.0-99.0); MEAN CORPUSCULAR HEMOGLOBIN 28.7 pg (27.0-31.0); MEAN CORPUSCULAR HGB CONC 32.3 g/dL (33.0-37.0); MEAN PLATELET VOLUME 12.7 fL (7.2-11.7); MONO # 2.3 K/uL (0.0-0.8); MONO % 13.3 % (0.0-10.0); NEUT # 13.4 K/uL (1.8-7.0); NEUT % 76.6 % (50.0-75.0); NRBC % 4.3 % (0.0-2.0); PLATELET COUNT 91 K/uL (130-400); RBC 3.41 Mil/uL (3.80-5.20); RED CELL DISTRIBUTION WIDTH 18.8 % (11.5-14.5); WHITE BLOOD COUNT 17.4 K/uL (4.8-10.8)
[2018-05-15 06:20] LABS: ALB/GLOB RATIO 0.9 (1.0-2.1); ALBUMIN 2.5 g/dL (3.5-5.0); CALCIUM 7.6 mg/dl (8.6-10.4)
--- NOTE | 2018-05-15 08:16 | RAD ---
Date of service: 05/14/2018 HISTORY: admission COMPARISON: 05/01/2018 FINDINGS: LUNGS: Current lung volumes less now than before. Bibasilar subsegmental compressive atelectasis inferred. PLEURA: Interval increased bilateral pleural effusions. No pneumothorax seen CARDIOVASCULAR: Cardiomegaly-similar. Prior pulmonary venous congestion similar to slightly increased. Right PICC line removed. OSSEOUS STRUCTURES: No significant abnormalities. VISUALIZED UPPER ABDOMEN: Normal. OTHER FINDINGS: None. IMPRESSION: Interval increased pleural effusions both small. Slightly larger than left. Cardiomegaly and pulmonary venous congestion-an element of chronic CHF inferred. Right PICC line removed
[2018-05-15 08:43] LABS: LYMPHOCYTE 6 % (20-40); MONOCYTE 15 % (0-10); NEUTROPHIL 79 % (50-75); NUCLEATED RED BLOOD CELL 5 % (0-0); PLATELET ESTIMATE DECREASED (NORMAL); TOTAL CELLS COUNTED 100
[2018-05-15 08:44] LABS: ANISOCYTOSIS SLIGHT; HYPOCHROMIC SLIGHT; POIKILOCYTOSIS SLIGHT
[2018-05-15 08:45] LABS: BURR CELLS SLIGHT; GIANT PLATELETS PRESENT; LARGE PLATELETS PRESENT; OVALOCYTES SLIGHT
[2018-05-15 08:46] LABS: MICROCYTOSIS SLIGHT; TEARDROP CELLS SLIGHT
[2018-05-15 08:47] LABS: TARGET CELLS SLIGHT
[2018-05-15] MEDS: Enoxaparin 30 mg Syringe SC SCH (10:00)
--- NOTE | 2018-05-15 10:15 | RAD ---
Date of service: 05/15/2018 HISTORY: SOB COMPARISON: Comparison made with prior CT scan chest abdomen pelvis 05/01/2018. FINDINGS: LUNGS: Mild bibasilar atelectasis and/or infiltrates and small effusions PLEURA: As above. No pneumothorax apparent. CARDIOVASCULAR: Heart is enlarged. Tiny pericardial effusion not seen on this exam as compared to high-resolution CT chest. OSSEOUS STRUCTURES: No significant abnormalities. VISUALIZED UPPER ABDOMEN: Normal. OTHER FINDINGS: None. IMPRESSION: Mild bibasilar atelectasis and or infiltrates and small effusions. Cardiomegaly.
--- NOTE | 2018-05-15 14:46 | CP.CCUPN ---
<Haley Meza L - Last Filed: 05/15/18 15:15> CCU Subjective - Physician Review Subjective (Free Text): Resident Critical Care Progress Note Patient examined resting upright in chair. Admits to feeling fevers and chills. Also states she has some abdominal pain, unchanged from previous admission. Critical Care Time Spent (in minutes): 35 CCU Objective - Vital Signs / Intake & Output Vital Signs (Last 4 hours): Vital Signs Temp Pulse Resp BP Pulse Ox 05/15/18 12:18 112 H 38 H 108/64 99 05/15/18 12:00 98.0 F 05/15/18 11:18 108 H 23 109/68 99 Intake and Output (Last 8hrs): Intake & Output 05/14/18 05/15/18 05/15/18 22:59 06:59 14:59 Intake Total 460 400 Output Total 0 700 Balance 460 -300 Weight 185 lb 183 lb 14.4 oz Intake: Intake, IV Amount 100 0 Left Antecubital 100 Left wrist 0 0 Right Wrist 0 0 Oral 360 400 Output: Urine 700 Urine, Voided 700 Emesis 0 0 Other: Voiding Method Bedpan # Voids Urine, Voided 1 0 # Bowel Movements 0 0 - Physical Exam Head: Positive for: Atraumatic, Normocephalic Pupils: Positive for: PERRL Extroacular Muscles: Positive for: EOMI Conjunctiva: Positive for: Normal Ears: Positive for: Normal Mouth: Positive for: Moist Mucous Membranes Nose (External): Positive for: Atraumatic Neck: Positive for: Normal Range of Motion Respiratory/Chest: Positive for: Good Air Exchange, Rhonchi. Negative for: Respiratory Distress Cardiovascular: Positive for: Regular Rate and Rhythm, Normal S1, S2 Abdomen: Positive for: Tenderness (mild tenderness in LUQ). Negative for: Distention, Peritoneal Signs, Rebound Upper Extremity: Positive for: Normal Inspection. Negative for: Cyanosis, Edema Lower Extremity: Positive for: Normal Inspection. Negative for: Edema, CALF TENDERNESS Neurological: Positive for: GCS=15, CN II-XII Intact, Speech Normal Skin: Positive for: Warm, Dry, Normal Color Psychiatric: Positive for: Alert, Oriented x 3 - Medications Active Medications: Active Medications Generic Name Dose Route Start Last Admin Trade Name Freq PRN Reason Stop Dose Admin Acetaminophen 650 mg 05/15/18 08:56 Tylenol 325mg Tab PO Q6 PRN Fever >100.4 F Albuterol/Ipratropium 3 ml 05/15/18 12:00 Duoneb 3 Mg/0.5 Mg (3 Ml) Ud INH RQ6 NAN Amoxicillin 500 mg 05/15/18 09:00 05/15/18 09:58 Amoxil 500 Mg Cap PO 500 mg Q12H NAN Administration Protocol Enoxaparin Sodium 30 mg 05/15/18 10:00 05/15/18 10:00 Lovenox SC 30 mg DAILY NAN Administration Famotidine 20 mg 05/15/18 10:00 05/15/18 09:58 Pepcid PO 20 mg DAILY NAN Administration Hydroxyurea 500 mg 05/15/18 10:00 05/15/18 10:00 Hydrea PO 500 mg BID NAN Administration - Patient Studies Lab Studies: Microbiology Studies 05/14/18 21:45 Blood Culture - Preliminary Blood Gram Negative Sy Gram Stain - Final Lab Studies 05/15/18 05/15/18 05/14/18 Range/Units 05:45 05:45 21:29 WBC 17.4 H (4.8-10.8) K/uL RBC 3.41 L (3.80-5.20) Mil/uL Hgb 9.8 L (11.0-16.0) g/dL Hct 30.3 L (34.0-47.0) % MCV 88.9 (81.0-99.0) fL MCH 28.7 (27.0-31.0) pg MCHC 32.3 L (33.0-37.0) g/dL RDW 18.8 H (11.5-14.5) % Plt Count 91 L (130-400) K/uL MPV 12.7 H (7.2-11.7) fL Neut % (Auto) 76.6 H (50.0-75.0) % Lymph % (Auto) 9.1 L (20.0-40.0) % [place] % (Auto) 13.3 H (0.0-10.0) % Eos % (Auto) 0.1 (0.0-4.0) % Baso % (Auto) 0.9 (0.0-2.0) % Neut # (Auto) 13.4 H (1.8-7.0) K/uL Lymph # (Auto) 1.6 (1.0-4.3) K/uL [place] # (Auto) 2.3 H (0.0-0.8) K/uL Eos # (Auto) 0.0 (0.0-0.7) K/uL Baso # (Auto) 0.2 (0.0-0.2) K/uL Neutrophils % (Manual) 79 H (50-75) % Lymphocytes % (Manual) 6 L (20-40) % Monocytes % (Manual) 15 H (0-10) % Nucleated RBC % 5 H (0-0) % Platelet Estimate Decreased L (NORMAL) Large Platelets Present Giant Platelets Present Hypochromasia (manual) Slight Poikilocytosis (manual Slight Anisocytosis (manual) Slight Microcytosis (manual) Slight Macrocytosis (manual) Slight Target Cells Slight Tear Drop Cells Slight Ovalocytes Slight [place] Cells Slight pO2 32 (30-55) mm/Hg VBG pH 7.41 (7.32-7.43) VBG pCO2 30 L (40-60) mmHg VBG HCO3 20.5 mmol/L VBG Total CO2 19.9 L (22-28) mmol/L VBG O2 Sat (Calc) 64.6 (40-65) % VBG Base Excess -4.5 L (0.0-2.0) mmol/L VBG Potassium 5.2 (3.6-5.2) mmol/L Glucose 130 H (65-105) mg/dl Lactate 1.9 (0.7-2.1) mmol/L Sodium 134 135.0 (132-148) mmol/L Potassium 4.8 (3.6-5.2) mmol/L Chloride 105 108.0 H (98-107) mmol/L Carbon Dioxide 19 L (22-30) mmol/L Anion Gap 14 (10-20) BUN 81 H (7-17) mg/dL Creatinine 2.0 H (0.7-1.2) mg/dL Est GFR ( Amer) 30 Est GFR (Non-Af Amer) 25 Random Glucose 129 H (65-105) mg/dL Lactic Acid (0.7-2.1) mmol/L Calcium 7.6 L (8.6-10.4) mg/dl Phosphorus 5.7 H (2.5-4.5) mg/dL Magnesium 1.8 (1.6-2.3) mg/dL Total Bilirubin 0.9 (0.2-1.3) mg/dL AST 27 (14-36) U/L ALT 44 (9-52) U/L Alkaline Phosphatase 132 H (38-126) U/L Total Protein 5.3 L (6.3-8.3) g/dL Albumin 2.5 L (3.5-5.0) g/dL Globulin 2.8 (2.2-3.9) gm/dL Albumin/Globulin Ratio 0.9 L (1.0-2.1) Venous Blood Potassium 5.2 (3.6-5.2) mmol/L 05/14/18 05/14/18 05/14/18 Range/Units 21:19 21:19 21:19 WBC 15.8 H (4.8-10.8) K/uL RBC 3.53 L (3.80-5.20) Mil/uL Hgb 10.3 L (11.0-16.0) g/dL Hct 31.4 L (34.0-47.0) % MCV 89.0 D (81.0-99.0) fL MCH 29.3 (27.0-31.0) pg MCHC 32.9 L (33.0-37.0) g/dL RDW 18.7 H (11.5-14.5) % Plt Count 106 L D (130-400) K/uL MPV 13.0 H (7.2-11.7) fL Neut % (Auto) 81.0 H (50.0-75.0) % Lymph % (Auto) 10.0 L (20.0-40.0) % [place] % (Auto) 7.5 (0.0-10.0) % Eos % (Auto) 0.6 (0.0-4.0) % Baso % (Auto) 0.9 (0.0-2.0) % Neut # (Auto) 12.8 H (1.8-7.0) K/uL Lymph # (Auto) 1.6 (1.0-4.3) K/uL [place] # (Auto) 1.2 H (0.0-0.8) K/uL Eos # (Auto) 0.1 (0.0-0.7) K/uL Baso # (Auto) 0.1 (0.0-0.2) K/uL Neutrophils % (Manual) (50-75) % Lymphocytes % (Manual) (20-40) % Monocytes % (Manual) (0-10) % Nucleated RBC % (0-0) % Platelet Estimate (NORMAL) Large Platelets Giant Platelets Hypochromasia (manual) Poikilocytosis (manual Anisocytosis (manual) Microcytosis (manual) Macrocytosis (manual) Target Cells Tear Drop Cells Ovalocytes Fatmata Cells pO2 (30-55) mm/Hg VBG pH (7.32-7.43) VBG pCO2 (40-60) mmHg VBG HCO3 mmol/L VBG Total CO2 (22-28) mmol/L VBG O2 Sat (Calc) (40-65) % VBG Base Excess (0.0-2.0) mmol/L VBG Potassium (3.6-5.2) mmol/L Glucose (65-105) mg/dl Lactate (0.7-2.1) mmol/L Sodium 132 (132-148) mmol/L Potassium 5.1 (3.6-5.2) mmol/L Chloride 101 (98-107) mmol/L Carbon Dioxide 20 L (22-30) mmol/L Anion Gap 17 (10-20) BUN 80 H (7-17) mg/dL Creatinine 2.1 H (0.7-1.2) mg/dL Est GFR ( Amer) 28 Est GFR (Non-Af Amer) 23 Random Glucose 123 H (65-105) mg/dL Lactic Acid 0.8 (0.7-2.1) mmol/L Calcium 8.0 L (8.6-10.4) mg/dl Phosphorus (2.5-4.5) mg/dL Magnesium (1.6-2.3) mg/dL Total Bilirubin 0.8 (0.2-1.3) mg/dL AST 32 (14-36) U/L ALT 43 (9-52) U/L Alkaline Phosphatase 160 H (38-126) U/L Total Protein 6.1 L (6.3-8.3) g/dL Albumin 3.0 L D (3.5-5.0) g/dL Globulin 3.1 (2.2-3.9) gm/dL Albumin/Globulin Ratio 1.0 (1.0-2.1) Venous Blood Potassium (3.6-5.2) mmol/L Laboratory Results - last 24 hr 05/14/18 05/14/18 05/14/18 21:19 21:19 21:19 WBC 15.8 H RBC 3.53 L Hgb 10.3 L Hct 31.4 L MCV 89.0 D MCH 29.3 MCHC 32.9 L RDW 18.7 H Plt Count 106 L D MPV 13.0 H Neut % (Auto) 81.0 H Lymph % (Auto) 10.0 L [place] % (Auto) 7.5 Eos % (Auto) 0.6 Baso % (Auto) 0.9 Neut # (Auto) 12.8 H Lymph # (Auto) 1.6 [place] # (Auto) 1.2 H Eos # (Auto) 0.1 Baso # (Auto) 0.1 Neutrophils % (Manual) Lymphocytes % (Manual) Monocytes % (Manual) Nucleated RBC % Platelet Estimate Large Platelets Giant Platelets Hypochromasia (manual) Poikilocytosis (manual Anisocytosis (manual) Microcytosis (manual) Macrocytosis (manual) Target Cells Tear Drop Cells Ovalocytes [place] Cells pO2 VBG pH VBG pCO2 VBG HCO3 VBG Total CO2 VBG O2 Sat (Calc) VBG Base Excess VBG Potassium Glucose Lactate Sodium 132 Potassium 5.1 Chloride 101 Carbon Dioxide 20 L Anion Gap 17 BUN 80 H Creatinine 2.1 H Est GFR ( Amer) 28 Est GFR (Non-Af Amer) 23 Random Glucose 123 H Lactic Acid 0.8 Calcium 8.0 L Phosphorus Magnesium Total Bilirubin 0.8 AST 32 ALT 43 Alkaline Phosphatase 160 H Total Protein 6.1 L Albumin 3.0 L D Globulin 3.1 Albumin/Globulin Ratio 1.0 Venous Blood Potassium 05/14/18 05/15/18 05/15/18 21:29 05:45 05:45 WBC 17.4 H RBC 3.41 L Hgb 9.8 L Hct 30.3 L MCV 88.9 MCH 28.7 MCHC 32.3 L RDW 18.8 H Plt Count 91 L MPV 12.7 H Neut % (Auto) 76.6 H Lymph % (Auto) 9.1 L [place] % (Auto) 13.3 H Eos % (Auto) 0.1 Baso % (Auto) 0.9 Neut # (Auto) 13.4 H Lymph # (Auto) 1.6 [place] # (Auto) 2.3 H Eos # (Auto) 0.0 Baso # (Auto) 0.2 Neutrophils % (Manual) 79 H Lymphocytes % (Manual) 6 L Monocytes % (Manual) 15 H Nucleated RBC % 5 H Platelet Estimate Decreased L Large Platelets Present Giant Platelets Present Hypochromasia (manual) Slight Poikilocytosis (manual Slight Anisocytosis (manual) Slight Microcytosis (manual) Slight Macrocytosis (manual) Slight Target Cells Slight Tear Drop Cells Slight Ovalocytes Slight Fatmata Cells Slight pO2 32 VBG pH 7.41 VBG pCO2 30 L VBG HCO3 20.5 VBG Total CO2 19.9 L VBG O2 Sat (Calc) 64.6 VBG Base Excess -4.5 L VBG Potassium 5.2 Glucose 130 H Lactate 1.9 Sodium 135.0 134 Potassium 4.8 Chloride 108.0 H 105 Carbon Dioxide 19 L Anion Gap 14 BUN 81 H Creatinine 2.0 H Est GFR ( Amer) 30 Est GFR (Non-Af Amer) 25 Random Glucose 129 H Lactic Acid Calcium 7.6 L Phosphorus 5.7 H Magnesium 1.8 Total Bilirubin 0.9 AST 27 ALT 44 Alkaline Phosphatase 132 H Total Protein 5.3 L Albumin 2.5 L Globulin 2.8 Albumin/Globulin Ratio 0.9 L Venous Blood Potassium 5.2 EKG/Cardiology Studies: Cardiology / EKG Studies 05/14/18 22:07 EKG [ELECTROCARDIOGRAM] Stat Comment: Mode Of Transportation: Reason For Exam: tachycardia Review of Systems - Review of Systems All systems: reviewed and no additional remarkable complaints except (as stated in HPI) Critical Care Progress Note - Extremities/Vascular Does the Patient have a Central Venous Catheter?: No - Nutrition Nutrition: Nutrition Category Date Time Status Heart Healthy Diet [DIET] Diets 05/15/18 Breakfast Active Assessment/Plan - Assessment and Plan (Free Text) Plan: 67 year old female with a PMHx of myelofibrosis, HTN, renal insufficiency admitted with fever and UTI. Urine culture from 05/11/18 grew Enterococcus faecalis and Klebsiella pneumoniae. Neuro: - AAO x3 Pulm: - Nasal cannula as tolerated - Maintain SPO2 > 92 % - Duonebs 3 ml INH RQ6 CV: - Currently hemodynamically stable - Milyqulilian held 2/ acute hemorrhagic process emanating from the spleen - ECHO from previous admission showed normal left ventricle systolic function. EF 65-70%. Moderate pulmonary HTN. - Dopplers showed acute thrombosis of right gastrocnemius vein with severe reduction of venous return. GI: - Pepcid 20mg PO daily - 05/06 CT abdomen showed acute hemorrhagic process emanating from the spleen - s/p IR splenic artery embolization Renal: - SOFIA with Cr 2.0 - Monitor I and O - Replete electrolytes as needed - Urology Dr Flor Irvin consulted. Recs appreciated. ID: - Blood culture prelim gram negative sy - Tygacil 100 mg given - ID Dr. Jackson consulted. Recs appreciated. - Amoxicillin 500 mg PO q12h Heme/Onc - Hx of myelofibrosis with chronic leukocytosis - Dr. Mcbride consulted. Recs appreciated. - Holding Arina Kennedy Endo: - Maintain euglycemia PPX: Pepcid 20 mg PO daily, Lovenox 30 mg SC daily Case and plan was reviewed and discussed with Dr. Fragoso - Date & Time Date: 05/15/18 Time: 08:00 <Terrance Fragoso - Last Filed: 05/15/18 15:29> CCU Objective - Vital Signs / Intake & Output Vital Signs (Last 4 hours): Vital Signs Temp Pulse Resp BP Pulse Ox 05/15/18 12:18 112 H 38 H 108/64 99 05/15/18 12:00 98.0 F Intake and Output (Last 8hrs): Intake & Output 05/15/18 05/15/18 05/15/18 06:59 14:59 22:59 Intake Total 460 400 Output Total 0 700 Balance 460 -300 Weight 183 lb 14.4 oz Intake: Intake, IV Amount 100 0 Left Antecubital 100 Left wrist 0 0 Right Wrist 0 0 Oral 360 400 Output: Urine 700 Urine, Voided 700 Emesis 0 0 Other: Voiding Method Bedpan # Voids Urine, Voided 1 0 # Bowel Movements 0 0 - Medications Active Medications: Active Medications Generic Name Dose Route Start Last Admin Trade Name Freq PRN Reason Stop Dose Admin Acetaminophen 650 mg 05/15/18 08:56 Tylenol 325mg Tab PO Q6 PRN Fever >100.4 F Albuterol/Ipratropium 3 ml 05/15/18 12:00 Duoneb 3 Mg/0.5 Mg (3 Ml) Ud INH RQ6 NAN Amoxicillin 500 mg 05/15/18 09:00 05/15/18 09:58 Amoxil 500 Mg Cap PO 500 mg Q12H NAN Administration Protocol Enoxaparin Sodium 30 mg 05/15/18 10:00 05/15/18 10:00 Lovenox SC 30 mg DAILY NAN Administration Famotidine 20 mg 05/15/18 10:00 05/15/18 09:58 Pepcid PO 20 mg DAILY NAN Administration Hydroxyurea 500 mg 05/15/18 10:00 05/15/18 10:00 Hydrea PO 500 mg BID NAN Administration - Patient Studies Lab Studies: Microbiology Studies 05/14/18 21:45 Blood Culture - Preliminary Blood Gram Negative Sy Gram Stain - Final Lab Studies 05/15/18 05/15/18 05/14/18 Range/Units 05:45 05:45 21:29 WBC 17.4 H (4.8-10.8) K/uL RBC 3.41 L (3.80-5.20) Mil/uL Hgb 9.8 L (11.0-16.0) g/dL Hct 30.3 L (34.0-47.0) % MCV 88.9 (81.0-99.0) fL MCH 28.7 (27.0-31.0) pg MCHC 32.3 L (33.0-37.0) g/dL RDW 18.8 H (11.5-14.5) % Plt Count 91 L (130-400) K/uL MPV 12.7 H (7.2-11.7) fL Neut % (Auto) 76.6 H (50.0-75.0) % Lymph % (Auto) 9.1 L (20.0-40.0) % [place] % (Auto) 13.3 H (0.0-10.0) % Eos % (Auto) 0.1 (0.0-4.0) % Baso % (Auto) 0.9 (0.0-2.0) % Neut # (Auto) 13.4 H (1.8-7.0) K/uL Lymph # (Auto) 1.6 (1.0-4.3) K/uL [place] # (Auto) 2.3 H (0.0-0.8) K/uL Eos # (Auto) 0.0 (0.0-0.7) K/uL Baso # (Auto) 0.2 (0.0-0.2) K/uL Neutrophils % (Manual) 79 H (50-75) % Lymphocytes % (Manual) 6 L (20-40) % Monocytes % (Manual) 15 H (0-10) % Nucleated RBC % 5 H (0-0) % Platelet Estimate Decreased L (NORMAL) Large Platelets Present Giant Platelets Present Hypochromasia (manual) Slight Poikilocytosis (manual Slight Anisocytosis (manual) Slight Microcytosis (manual) Slight Macrocytosis (manual) Slight Target Cells Slight Tear Drop Cells Slight Ovalocytes Slight Fatmata Cells Slight pO2 32 (30-55) mm/Hg VBG pH 7.41 (7.32-7.43) VBG pCO2 30 L (40-60) mmHg VBG HCO3 20.5 mmol/L VBG Total CO2 19.9 L (22-28) mmol/L VBG O2 Sat (Calc) 64.6 (40-65) % VBG Base Excess -4.5 L (0.0-2.0) mmol/L VBG Potassium 5.2 (3.6-5.2) mmol/L Glucose 130 H (65-105) mg/dl Lactate 1.9 (0.7-2.1) mmol/L Sodium 134 135.0 (132-148) mmol/L Potassium 4.8 (3.6-5.2) mmol/L Chloride 105 108.0 H (98-107) mmol/L Carbon Dioxide 19 L (22-30) mmol/L Anion Gap 14 (10-20) BUN 81 H (7-17) mg/dL Creatinine 2.0 H (0.7-1.2) mg/dL Est GFR ( Amer) 30 Est GFR (Non-Af Amer) 25 Random Glucose 129 H (65-105) mg/dL Lactic Acid (0.7-2.1) mmol/L Calcium 7.6 L (8.6-10.4) mg/dl Phosphorus 5.7 H (2.5-4.5) mg/dL Magnesium 1.8 (1.6-2.3) mg/dL Total Bilirubin 0.9 (0.2-1.3) mg/dL AST 27 (14-36) U/L ALT 44 (9-52) U/L Alkaline Phosphatase 132 H (38-126) U/L Total Protein 5.3 L (6.3-8.3) g/dL Albumin 2.5 L (3.5-5.0) g/dL Globulin 2.8 (2.2-3.9) gm/dL Albumin/Globulin Ratio 0.9 L (1.0-2.1) Venous Blood Potassium 5.2 (3.6-5.2) mmol/L 05/14/18 05/14/18 05/14/18 Range/Units 21:19 21:19 21:19 WBC 15.8 H (4.8-10.8) K/uL RBC 3.53 L (3.80-5.20) Mil/uL Hgb 10.3 L (11.0-16.0) g/dL Hct 31.4 L (34.0-47.0) % MCV 89.0 D (81.0-99.0) fL MCH 29.3 (27.0-31.0) pg MCHC 32.9 L (33.0-37.0) g/dL RDW 18.7 H (11.5-14.5) % Plt Count 106 L D (130-400) K/uL MPV 13.0 H (7.2-11.7) fL Neut % (Auto) 81.0 H (50.0-75.0) % Lymph % (Auto) 10.0 L (20.0-40.0) % [place] % (Auto) 7.5 (0.0-10.0) % Eos % (Auto) 0.6 (0.0-4.0) % Baso % (Auto) 0.9 (0.0-2.0) % Neut # (Auto) 12.8 H (1.8-7.0) K/uL Lymph # (Auto) 1.6 (1.0-4.3) K/uL [place] # (Auto) 1.2 H (0.0-0.8) K/uL Eos # (Auto) 0.1 (0.0-0.7) K/uL Baso # (Auto) 0.1 (0.0-0.2) K/uL Neutrophils % (Manual) (50-75) % Lymphocytes % (Manual) (20-40) % Monocytes % (Manual) (0-10) % Nucleated RBC % (0-0) % Platelet Estimate (NORMAL) Large Platelets Giant Platelets Hypochromasia (manual) Poikilocytosis (manual Anisocytosis (manual) Microcytosis (manual) Macrocytosis (manual) Target Cells Tear Drop Cells Ovalocytes [place] Cells pO2 (30-55) mm/Hg VBG pH (7.32-7.43) VBG pCO2 (40-60) mmHg VBG HCO3 mmol/L VBG Total CO2 (22-28) mmol/L VBG O2 Sat (Calc) (40-65) % VBG Base Excess (0.0-2.0) mmol/L VBG Potassium (3.6-5.2) mmol/L Glucose (65-105) mg/dl Lactate (0.7-2.1) mmol/L Sodium 132 (132-148) mmol/L Potassium 5.1 (3.6-5.2) mmol/L Chloride 101 (98-107) mmol/L Carbon Dioxide 20 L (22-30) mmol/L Anion Gap 17 (10-20) BUN 80 H (7-17) mg/dL Creatinine 2.1 H (0.7-1.2) mg/dL Est GFR ( Amer) 28 Est GFR (Non-Af Amer) 23 Random Glucose 123 H (65-105) mg/dL Lactic Acid 0.8 (0.7-2.1) mmol/L Calcium 8.0 L (8.6-10.4) mg/dl Phosphorus (2.5-4.5) mg/dL Magnesium (1.6-2.3) mg/dL Total Bilirubin 0.8 (0.2-1.3) mg/dL AST 32 (14-36) U/L ALT 43 (9-52) U/L Alkaline Phosphatase 160 H (38-126) U/L Total Protein 6.1 L (6.3-8.3) g/dL Albumin 3.0 L D (3.5-5.0) g/dL Globulin 3.1 (2.2-3.9) gm/dL Albumin/Globulin Ratio 1.0 (1.0-2.1) Venous Blood Potassium (3.6-5.2) mmol/L Laboratory Results - last 24 hr 05/14/18 05/14/18 05/14/18 21:19 21:19 21:19 WBC 15.8 H RBC 3.53 L Hgb 10.3 L Hct 31.4 L MCV 89.0 D MCH 29.3 MCHC 32.9 L RDW 18.7 H Plt Count 106 L D MPV 13.0 H Neut % (Auto) 81.0 H Lymph % (Auto) 10.0 L [place] % (Auto) 7.5 Eos % (Auto) 0.6 Baso % (Auto) 0.9 Neut # (Auto) 12.8 H Lymph # (Auto) 1.6 [place] # (Auto) 1.2 H Eos # (Auto) 0.1 Baso # (Auto) 0.1 Neutrophils % (Manual) Lymphocytes % (Manual) Monocytes % (Manual) Nucleated RBC % Platelet Estimate Large Platelets Giant Platelets Hypochromasia (manual) Poikilocytosis (manual Anisocytosis (manual) Microcytosis (manual) Macrocytosis (manual) Target Cells Tear Drop Cells Ovalocytes [place] Cells pO2 VBG pH VBG pCO2 VBG HCO3 VBG Total CO2 VBG O2 Sat (Calc) VBG Base Excess VBG Potassium Glucose Lactate Sodium 132 Potassium 5.1 Chloride 101 Carbon Dioxide 20 L Anion Gap 17 BUN 80 H Creatinine 2.1 H Est GFR ( Amer) 28 Est GFR (Non-Af Amer) 23 Random Glucose 123 H Lactic Acid 0.8 Calcium 8.0 L Phosphorus Magnesium Total Bilirubin 0.8 AST 32 ALT 43 Alkaline Phosphatase 160 H Total Protein 6.1 L Albumin 3.0 L D Globulin 3.1 Albumin/Globulin Ratio 1.0 Venous Blood Potassium 05/14/18 05/15/18 05/15/18 21:29 05:45 05:45 WBC 17.4 H RBC 3.41 L Hgb 9.8 L Hct 30.3 L MCV 88.9 MCH 28.7 MCHC 32.3 L RDW 18.8 H Plt Count 91 L MPV 12.7 H Neut % (Auto) 76.6 H Lymph % (Auto) 9.1 L [place] % (Auto) 13.3 H Eos % (Auto) 0.1 Baso % (Auto) 0.9 Neut # (Auto) 13.4 H Lymph # (Auto) 1.6 [place] # (Auto) 2.3 H Eos # (Auto) 0.0 Baso # (Auto) 0.2 Neutrophils % (Manual) 79 H Lymphocytes % (Manual) 6 L Monocytes % (Manual) 15 H Nucleated RBC % 5 H Platelet Estimate Decreased L Large Platelets Present Giant Platelets Present Hypochromasia (manual) Slight Poikilocytosis (manual Slight Anisocytosis (manual) Slight Microcytosis (manual) Slight Macrocytosis (manual) Slight Target Cells Slight Tear Drop Cells Slight Ovalocytes Slight Fatmata Cells Slight pO2 32 VBG pH 7.41 VBG pCO2 30 L VBG HCO3 20.5 VBG Total CO2 19.9 L VBG O2 Sat (Calc) 64.6 VBG Base Excess -4.5 L VBG Potassium 5.2 Glucose 130 H Lactate 1.9 Sodium 135.0 134 Potassium 4.8 Chloride 108.0 H 105 Carbon Dioxide 19 L Anion Gap 14 BUN 81 H Creatinine 2.0 H Est GFR ( Amer) 30 Est GFR (Non-Af Amer) 25 Random Glucose 129 H Lactic Acid Calcium 7.6 L Phosphorus 5.7 H Magnesium 1.8 Total Bilirubin 0.9 AST 27 ALT 44 Alkaline Phosphatase 132 H Total Protein 5.3 L Albumin 2.5 L Globulin 2.8 Albumin/Globulin Ratio 0.9 L Venous Blood Potassium 5.2 EKG/Cardiology Studies: Cardiology / EKG Studies 05/14/18 22:07 EKG [ELECTROCARDIOGRAM] Stat Comment: Mode Of Transportation: Reason For Exam: tachycardia Critical Care Progress Note - Nutrition Nutrition: Nutrition Category Date Time Status Heart Healthy Diet [DIET] Diets 05/15/18 Breakfast Active Attending/Attestation - Attestation I have personally seen and examined this patient.: Yes I have fully participated in the care of the patient.: Yes I have reviewed all pertinent clinical information: Yes Notes (Text): 05/15/18 15:28 I have seen and examined the patient. Medical records, lab studies, and imaging were reviewed by me and a management plan was formulated on multidisciplinary rounds with resident Dr. De Leon. I agree with their documented assessment and plan. Patient is being treated for MDR Klebsiella UTI, on Tigecycline. Patient is septic but stable, continue to monitor in ICU. Critical Care Time 35 minutes. Multi-disciplinary rounds were performed with house staff, nursing, speech therapy, respiratory therapy, pharmacy and nutrition with integrated input from the primary team/attending and other consulting services. The documented time is cumulative and includes review of patient data/exams/labs/chart review and examination of the patient on rounds and throughout the day; time is exclusive of any procedures or teaching time.
[2018-05-15] MEDS ORDERED: Tigecycline 50 MG in Dextrose 5% In Water 100 ML IVPB SCH (16:00)
--- NOTE | 2018-05-15 16:27 | CP.PCM.HP ---
History of Present Illness - History of Present Illness History of Present Illness: 29-year-old female patient with PMH of HTN, arthritis, myelofibrosis is brought to the ED by family after fever of 103 F. Patient was recently hospitalized for 3 weeks with urinary stricture, urosepsis and renal insufficiency, she had a stent placed and was just discharged home yesterday. Patient's urine culture grew Klebsiella and enterococcus. Klebsiella is sensitive to amikacin, tobramycin, tigecycline only. After being discharged for home, patient reports of not feeling well and complains of generalized weakness had a spiking fever of 103. Other than that patient denies nausea, vomiting, diarrhea, chest pain, shortness of breath, dizziness, abdominal pain or headache. Present on Admission - Present on Admission Any Indicators Present on Admission: No Past Patient History - Infectious Disease Hx of Infectious Diseases: None - Past Medical History & Family History Past Medical History?: Yes - Past Social History Smoking Status: Never Smoked - CARDIAC Hx Cardiac Disorders: Yes Hx Angina: No Hx Atrial Fibrillation: No Hx Cardia Arrhythmia: No Hx Circulatory Problems: No Hx Congestive Heart Failure: Yes (Diastolic heart failure) Hx Heart Attack: No Hx Heart Murmur: No Hx Heart Transplant: No Hx Hypercholesterolemia: No Hx Hypertension: Yes Hx Hypotension: No Hx Internal Defibrillator: No Hx Mitral Valve Prolapse: No Hx Pacemaker: No Hx Peripheral Edema: Yes (B/L ankles and feet) Hx Peripheral Vascular Disease: No - PULMONARY Hx Respiratory Disorders: No Hx Asthma: No Hx Bronchitis: No Hx Chronic Obstructive Pulmonary Disease (COPD): No Hx Emphysema: No Hx Lung Cancer: No Hx Pneumonia: No Hx Pulmonary Edema: No Hx Pulmonary Embolism: No Hx Respiratory Aspiration: No Hx Respiratory Tract Infection: No Hx Sleep Apnea: No Hx Tuberculosis: No - NEUROLOGICAL Hx Neurological Disorder: No Hx Alzheimer's Disease: No HX Cerebrovascular Accident: No Hx Dementia: No Hx Dizziness: No Hx Meningitis: No Hx Migraine: No Hx Multiple Sclerosis: No Hx Paralysis: No Hx Parkinson's Disease: No Hx Seizures: No Hx Syncope: No Hx Transient Ischemic Attacks (TIA): No Hx Vertigo: No - HEENT Hx HEENT Problems: Yes Hx Blind: No Hx Cataracts: Yes Hx Deafness: No Hx Difficulty Chewing: No Hx Epistaxis: No Hx Glaucoma: Yes Hx Macular Degeneration: No Hx Sinusitis: No Other/Comment: Hx of eye surgery for repair - RENAL Hx Chronic Kidney Disease: Yes Hx Dialysis: No Hx Kidney Stones: No Hx Neurogenic Bladder: No Hx Pyelonephritis: Yes Hx Renal (Kidney) Cancer: No Hx Renal Failure: Yes Other/Comment: Hx of bladder stones - ENDOCRINE/METABOLIC Hx Endocrine Disorders: No Hx Adrenal Cancer: No Hx Diabetes Insipidus: No Hx Diabetes Mellitus Type 1: No Hx Diabetes Mellitus Type 2: No Hx Hyperthyroidism: No Hx Hypothyroidism: No Hx Systemic Lupus Erythematosus: No - HEMATOLOGICAL/ONCOLOGICAL Hx Blood Disorders: Yes Hx AIDS: No Hx Anemia: Yes Hx Blood Transfusions: Yes Hx Blood Transfusion Reaction: No Hx Bruising: No Hx Cancer: No Hx Chemotherapy: No Hx Cirrhosis: No Hx Gum Bleeding: No Hx Hemophilia: No Hx Hepatitis A: No Hx Hepatitis B: No Hx Hepatitis C: No Hx Human Immunodeficiency Virus (HIV): No Hx Leukemia: No Hx Metastesis: No Hx Shingles: No Hx Sickle Cell Disease: No Hx Unexplained Bleeding: No Hx von Willebrand's Disease: No Other/Comment: Myelofibrosis, Myelodysplasia - INTEGUMENTARY Hx Dermatological Problems: No Hx Basil Cell: No Hx Bryant: No Hx Cellulitis: No Hx Eczema: No Hx Melanoma: No Hx Psoriasis: No Hx Squamous Cell: No - MUSCULOSKELETAL/RHEUMATOLOGICAL Hx Musculoskeletal Disorders: Yes Hx Arthritis: Yes Hx Back Pain: No Hx Degenerative Joint Disease: No Hx Falls: No Hx Fractures: No Hx Gout: No Hx Herniated Disk: No Hx Myasthenia Gravis: No Hx Osteoarthritis: No Hx Osteomyelitis: No Hx Osteoporosis: No Hx Rhabdomyolysis: No Hx Rheumatoid Arthritis: No Hx Spinal Stenosis: No Hx Unsteady Gait: No - GASTROINTESTINAL Hx Gastrointestinal Disorders: No Hx Bowel Surgery: No Hx Clostridium Difficile: No Hx Colitis: No Hx Colostomy: No Hx Constipation: No Hx Crohn's Disease: No Hx Diarrhea: No Hx Diverticulitis: No Hx Esophageal Varices: No Hx Fatty Liver Disease: No Hx Gall Bladder Disease: No Hx Gastritis: No Hx Gastroesophageal Reflux: No Hx Hemorrhoids: No Hx Ileostomy: No Hx Irritable Bowel: No Hx Liver Failure: No Hx Nausea: No Hx Pancreatitis: No HX Swallowing Problems: No Hx Ulcer: No Hx Vomiting: No Other/Comment: Hx of hepatospleenomegaly and spleenic embolization - GENITOURINARY/GYNECOLOGICAL Hx Genitourinary Disorders: Yes Hx Bladder Cancer: No Hx Bladder Stone: Yes Hx Cervical Cancer: No Hx Hematuria: No Hx Incontinence: No Hx Ovarian Cancer: No Hx Postmenopausal Bleeding: No Hx Reproductive Disorders: No Hx Sexually Transmitted Disorders: No Hx Uterine Cancer: No Hx Urinary Tract Infection: Yes Other/Comment: urethral strictor, - PSYCHIATRIC Hx Psychophysiologic Disorder: No Hx Anxiety: No Hx Bipolar Disorder: No Hx Depression: No Hx Emotional Abuse: No Hx Hallucinations: No Hx Panic Symptoms: No Hx Paranoia: No Hx Post Traumatic Stress Disorder: No Hx Psychosis: No Hx Physical Abuse: No Hx Schizophrenia: No Hx Sexual Abuse: No Hx Substance Use: No - SURGICAL HISTORY Hx Surgeries: Yes Hx Abdominal Aortic Aneurysm Repair: No Hx Amputation: No Hx Angiogram: No Hx Angioplasty: No Hx Appendectomy: No Hx Arteriovenous Shunt: No Hx Arthroscopy: No Hx Bile Duct Stent: No Hx Breast Biopsy: No Hx Cataract Extraction: No Hx Cardiac Catheterization: No Hx Carotid Endarterectomy: No Hx Section: No Hx Cholecystectomy: No Hx Coronary Artery Bypass Graft: No Hx Coronary Stent: No Hx Dilation and Curettage: No Hx Eye Surgery: Yes Hx Femoral-Popliteal Bypass Graft: No Hx Gastric Bypass Surgery: No Hx Herniorrhaphy: No Hx Hysterectomy: No Hx Joint Replacement: No Hx Kidney Transplant: No Hx Liver Transplant: No Hx Mastectomy: No Hx Musculoskeletal Surgery: No Hx Open Heart Surgery: No Hx Open Reduction Internal Fixation: No Hx Orthopedic Surgery: No Hx Parathyroidectomy: No Hx Penile Implant: No Hx Pulmonary Surgery: No Hx Splenectomy: No (spleenic embolization) Hx Thyroidectomy: No Hx Tonsillectomy: No Hx Tubal Ligation: No Hx Valve Replacement: No Hx Vascular Surgery: No Hx Vascular Access Device: No Other/Comment: embolization of spleen/ - ANESTHESIA Hx Anesthesia: Yes Hx Anesthesia Reactions: No Hx Malignant Hyperthermia: No Has any member of the family had a problem w/ anesthesia?: No Meds Allergies/Adverse Reactions: Allergies Allergy/AdvReac Type Severity Reaction Status Date / Time ciprofloxacin [From Cipro] AdvReac Verified 05/14/18 20:54 Physical Exam - Constitutional Appears: Well - Head Exam Head Exam: ATRAUMATIC, NORMAL INSPECTION, NORMOCEPHALIC - Eye Exam Eye Exam: EOMI, Normal appearance, PERRL Pupil Exam: NORMAL ACCOMODATION, PERRL - ENT Exam ENT Exam: Mucous Membranes Moist, Normal Exam - Neck Exam Neck exam: Positive for: Normal Inspection - Respiratory Exam Respiratory Exam: Decreased Breath Sounds - Cardiovascular Exam Cardiovascular Exam: REGULAR RHYTHM, +S1, +S2 - GI/Abdominal Exam GI & Abdominal Exam: Diminished Bowel Sounds, Soft - Rectal Exam Rectal Exam: Deferred Results - Vital Signs Recent Vital Signs: Last Vital Signs Temp 98.3 F 05/15/18 16:00 Pulse 116 H 05/15/18 13:19 Resp 42 H 05/15/18 13:19 BP 118/71 05/15/18 13:19 Pulse Ox 97 05/15/18 13:19 - Labs Result Diagrams: 05/30/18 06:31 05/30/18 06:32 Labs: Laboratory Results - last 24 hr 05/14/18 05/14/18 05/14/18 21:19 21:19 21:19 WBC 15.8 H RBC 3.53 L Hgb 10.3 L Hct 31.4 L MCV 89.0 D MCH 29.3 MCHC 32.9 L RDW 18.7 H Plt Count 106 L D MPV 13.0 H Neut % (Auto) 81.0 H Lymph % (Auto) 10.0 L [place] % (Auto) 7.5 Eos % (Auto) 0.6 Baso % (Auto) 0.9 Neut # (Auto) 12.8 H Lymph # (Auto) 1.6 [place] # (Auto) 1.2 H Eos # (Auto) 0.1 Baso # (Auto) 0.1 Neutrophils % (Manual) Lymphocytes % (Manual) Monocytes % (Manual) Nucleated RBC % Platelet Estimate Large Platelets Giant Platelets Hypochromasia (manual) Poikilocytosis (manual Anisocytosis (manual) Microcytosis (manual) Macrocytosis (manual) Target Cells Tear Drop Cells Ovalocytes [place] Cells pO2 VBG pH VBG pCO2 VBG HCO3 VBG Total CO2 VBG O2 Sat (Calc) VBG Base Excess VBG Potassium Glucose Lactate Sodium 132 Potassium 5.1 Chloride 101 Carbon Dioxide 20 L Anion Gap 17 BUN 80 H Creatinine 2.1 H Est GFR ( Amer) 28 Est GFR (Non-Af Amer) 23 Random Glucose 123 H Lactic Acid 0.8 Calcium 8.0 L Phosphorus Magnesium Total Bilirubin 0.8 AST 32 ALT 43 Alkaline Phosphatase 160 H Total Protein 6.1 L Albumin 3.0 L D Globulin 3.1 Albumin/Globulin Ratio 1.0 Venous Blood Potassium 05/14/18 05/15/18 05/15/18 21:29 05:45 05:45 WBC 17.4 H RBC 3.41 L Hgb 9.8 L Hct 30.3 L MCV 88.9 MCH 28.7 MCHC 32.3 L RDW 18.8 H Plt Count 91 L MPV 12.7 H Neut % (Auto) 76.6 H Lymph % (Auto) 9.1 L [place] % (Auto) 13.3 H Eos % (Auto) 0.1 Baso % (Auto) 0.9 Neut # (Auto) 13.4 H Lymph # (Auto) 1.6 [place] # (Auto) 2.3 H Eos # (Auto) 0.0 Baso # (Auto) 0.2 Neutrophils % (Manual) 79 H Lymphocytes % (Manual) 6 L Monocytes % (Manual) 15 H Nucleated RBC % 5 H Platelet Estimate Decreased L Large Platelets Present Giant Platelets Present Hypochromasia (manual) Slight Poikilocytosis (manual Slight Anisocytosis (manual) Slight Microcytosis (manual) Slight Macrocytosis (manual) Slight Target Cells Slight Tear Drop Cells Slight Ovalocytes Slight [place]mata Cells Slight pO2 32 VBG pH 7.41 VBG pCO2 30 L VBG HCO3 20.5 VBG Total CO2 19.9 L VBG O2 Sat (Calc) 64.6 VBG Base Excess -4.5 L VBG Potassium 5.2 Glucose 130 H Lactate 1.9 Sodium 135.0 134 Potassium 4.8 Chloride 108.0 H 105 Carbon Dioxide 19 L Anion Gap 14 BUN 81 H Creatinine 2.0 H Est GFR ( Amer) 30 Est GFR (Non-Af Amer) 25 Random Glucose 129 H Lactic Acid Calcium 7.6 L Phosphorus 5.7 H Magnesium 1.8 Total Bilirubin 0.9 AST 27 ALT 44 Alkaline Phosphatase 132 H Total Protein 5.3 L Albumin 2.5 L Globulin 2.8 Albumin/Globulin Ratio 0.9 L Venous Blood Potassium 5.2 Assessment & Plan (1) Abdominal pain Status: Acute (2) Anemia Status: Acute (3) Atrial fibrillation, new onset Status: Acute (4) CHF (congestive heart failure) Status: Acute (5) DVT (deep venous thrombosis) Status: Acute (6) Elevated brain natriuretic peptide (BNP) level Status: Acute (7) Hepatosplenomegaly Status: Acute (8) Hydronephrosis, right Status: Acute (9) Leucocytosis Status: Acute (10) Myelofibrosis Status: Acute (11) Portal vein thrombosis Status: Acute (12) Prophylactic measure Status: Acute (13) Pyelonephritis Status: Acute (14) Pyelonephritis due to Escherichia coli Status: Acute (15) Renal insufficiency Status: Acute (16) Spleen hematoma Status: Acute (17) Splenic hemorrhage Status: Acute (18) Thrombocytopenia Status: Acute (19) UTI (urinary tract infection) Status: Acute (20) Varices of other sites Status: Acute - Assessment and Plan (Free Text) Plan: Patient seen and examined at bedside Labs and meds reviewed Cardio consult ID consult Antibiotics as per ID Blood cultures Hemato-oncology consult DVT prophylaxis GI prophylaxis Continue as advised
--- NOTE | 2018-05-15 19:42 | CP.PCM.CON ---
History of Present Illness - History of Present Illness History of Present Illness: INFECTIOUS DISEASE ICU #2 CONSULTATION JANY PATTERSON MD, FACP 05/15/2018 CHART REVIEWED PT EXAMINED CASE DISCUSSED WITH ER PHYSICIAN LAST NIGHT AND MEDICAL STAFF TODAY, AT LENGTH THIS PATIENT IS A PLEASANT 67 YR YEAR OLD WHITE FEMALE READMITTED WITH SPIKING TEMPS OF 103 WITH CHILLS. HER URINE CULTURES ARE DEMONSTRATING BOTH MDR KLEBSIELLA SPECIES AND ALSO ENTEROCOCCUS, OF THIS WRITING SHE ALSO HAS GRAM NEGATIVE BACTEREMIA. SHE LOOKS TIRED AND WORN, EMPIRIC ANTIBIOTICS HAVE BEEN STARTED SINCE LAST NIGHT AND NOW CHANGED ACCORDINGLY TO AVYCAZ PER MICROBIOLOGY INTERACTION. PMHX; MYLEOFIBROSIS PROGRESSIVE, HTN RIGHT HYDRONEPHROSIS WITH URETRERAL STRICTURES WITH A RIGHT SIDED STENT ATRIAL FIBRILLATION DVT BUT DEVELOPED A SPLENIC HEMORRHAGE REQUIRING SPLENIC ARTERY EMBOLIZATION. VSS POST AGGRESSIVE IV ANTIBIOTICS SUPPLE CHEST DECREASED BREATH SOUNDS COR RATE APPRECIATED ABD SORENESS LEFT SIDE EXT SOME EDEMA APPRECIATED LABS NOTED PROGNOSIS GUARDED IMPRESSION: PRESUMED KLEBSIELLA BACTEREMIA-2ND URINARY SOURCE-STARTED ON AVYCAZ PANCYTOPENIA 2ND MYELOFIBROSIS, IMPROVING ON RUXOLITINIB AND HYDROZYUREA RENAL-CKD DM PULMONARY ISSUES MONITOR "DAILY RENAL FUNCTION" INFORM ID OF ANY ID ISSUES-PLEASE. CONTINUE TO USE DIRECT INTERACTIVE DISCUSSIONS... JANY PATTERSON MD, FACP Past Patient History - Infectious Disease Hx of Infectious Diseases: None - Past Medical History & Family History Past Medical History?: Yes - Past Social History Smoking Status: Never Smoked - CARDIAC Hx Cardiac Disorders: Yes Hx Angina: No Hx Atrial Fibrillation: No Hx Cardia Arrhythmia: No Hx Circulatory Problems: No Hx Congestive Heart Failure: Yes (Diastolic heart failure) Hx Heart Attack: No Hx Heart Murmur: No Hx Heart Transplant: No Hx Hypercholesterolemia: No Hx Hypertension: Yes Hx Hypotension: No Hx Internal Defibrillator: No Hx Mitral Valve Prolapse: No Hx Pacemaker: No Hx Peripheral Edema: Yes (B/L ankles and feet) Hx Peripheral Vascular Disease: No - PULMONARY Hx Respiratory Disorders: No Hx Asthma: No Hx Bronchitis: No Hx Chronic Obstructive Pulmonary Disease (COPD): No Hx Emphysema: No Hx Lung Cancer: No Hx Pneumonia: No Hx Pulmonary Edema: No Hx Pulmonary Embolism: No Hx Respiratory Aspiration: No Hx Respiratory Tract Infection: No Hx Sleep Apnea: No Hx Tuberculosis: No - NEUROLOGICAL Hx Neurological Disorder: No Hx Alzheimer's Disease: No HX Cerebrovascular Accident: No Hx Dementia: No Hx Dizziness: No Hx Meningitis: No Hx Migraine: No Hx Multiple Sclerosis: No Hx Paralysis: No Hx Parkinson's Disease: No Hx Seizures: No Hx Syncope: No Hx Transient Ischemic Attacks (TIA): No Hx Vertigo: No - HEENT Hx HEENT Problems: Yes Hx Blind: No Hx Cataracts: Yes Hx Deafness: No Hx Difficulty Chewing: No Hx Epistaxis: No Hx Glaucoma: Yes Hx Macular Degeneration: No Hx Sinusitis: No Other/Comment: Hx of eye surgery for repair - RENAL Hx Chronic Kidney Disease: Yes Hx Dialysis: No Hx Kidney Stones: No Hx Neurogenic Bladder: No Hx Pyelonephritis: Yes Hx Renal (Kidney) Cancer: No Hx Renal Failure: Yes Other/Comment: Hx of bladder stones - ENDOCRINE/METABOLIC Hx Endocrine Disorders: No Hx Adrenal Cancer: No Hx Diabetes Insipidus: No Hx Diabetes Mellitus Type 1: No Hx Diabetes Mellitus Type 2: No Hx Hyperthyroidism: No Hx Hypothyroidism: No Hx Systemic Lupus Erythematosus: No - HEMATOLOGICAL/ONCOLOGICAL Hx Blood Disorders: Yes Hx AIDS: No Hx Anemia: Yes Hx Blood Transfusions: Yes Hx Blood Transfusion Reaction: No Hx Bruising: No Hx Cancer: No Hx Chemotherapy: No Hx Cirrhosis: No Hx Gum Bleeding: No Hx Hemophilia: No Hx Hepatitis A: No Hx Hepatitis B: No Hx Hepatitis C: No Hx Human Immunodeficiency Virus (HIV): No Hx Leukemia: No Hx Metastesis: No Hx Shingles: No Hx Sickle Cell Disease: No Hx Unexplained Bleeding: No Hx von Willebrand's Disease: No Other/Comment: Myelofibrosis, Myelodysplasia - INTEGUMENTARY Hx Dermatological Problems: No Hx Basil Cell: No Hx Bryant: No Hx Cellulitis: No Hx Eczema: No Hx Melanoma: No Hx Psoriasis: No Hx Squamous Cell: No - MUSCULOSKELETAL/RHEUMATOLOGICAL Hx Musculoskeletal Disorders: Yes Hx Arthritis: Yes Hx Back Pain: No Hx Degenerative Joint Disease: No Hx Falls: No Hx Fractures: No Hx Gout: No Hx Herniated Disk: No Hx Myasthenia Gravis: No Hx Osteoarthritis: No Hx Osteomyelitis: No Hx Osteoporosis: No Hx Rhabdomyolysis: No Hx Rheumatoid Arthritis: No Hx Spinal Stenosis: No Hx Unsteady Gait: No - GASTROINTESTINAL Hx Gastrointestinal Disorders: No Hx Bowel Surgery: No Hx Clostridium Difficile: No Hx Colitis: No Hx Colostomy: No Hx Constipation: No Hx Crohn's Disease: No Hx Diarrhea: No Hx Diverticulitis: No Hx Esophageal Varices: No Hx Fatty Liver Disease: No Hx Gall Bladder Disease: No Hx Gastritis: No Hx Gastroesophageal Reflux: No Hx Hemorrhoids: No Hx Ileostomy: No Hx Irritable Bowel: No Hx Liver Failure: No Hx Nausea: No Hx Pancreatitis: No HX Swallowing Problems: No Hx Ulcer: No Hx Vomiting: No Other/Comment: Hx of hepatospleenomegaly and spleenic embolization - GENITOURINARY/GYNECOLOGICAL Hx Genitourinary Disorders: Yes Hx Bladder Cancer: No Hx Bladder Stone: Yes Hx Cervical Cancer: No Hx Hematuria: No Hx Incontinence: No Hx Ovarian Cancer: No Hx Postmenopausal Bleeding: No Hx Reproductive Disorders: No Hx Sexually Transmitted Disorders: No Hx Uterine Cancer: No Hx Urinary Tract Infection: Yes Other/Comment: urethral strictor, - PSYCHIATRIC Hx Psychophysiologic Disorder: No Hx Anxiety: No Hx Bipolar Disorder: No Hx Depression: No Hx Emotional Abuse: No Hx Hallucinations: No Hx Panic Symptoms: No Hx Paranoia: No Hx Post Traumatic Stress Disorder: No Hx Psychosis: No Hx Physical Abuse: No Hx Schizophrenia: No Hx Sexual Abuse: No Hx Substance Use: No - SURGICAL HISTORY Hx Surgeries: Yes Hx Abdominal Aortic Aneurysm Repair: No Hx Amputation: No Hx Angiogram: No Hx Angioplasty: No Hx Appendectomy: No Hx Arteriovenous Shunt: No Hx Arthroscopy: No Hx Bile Duct Stent: No Hx Breast Biopsy: No Hx Cataract Extraction: No Hx Cardiac Catheterization: No Hx Carotid Endarterectomy: No Hx Section: No Hx Cholecystectomy: No Hx Coronary Artery Bypass Graft: No Hx Coronary Stent: No Hx Dilation and Curettage: No Hx Eye Surgery: Yes Hx Femoral-Popliteal Bypass Graft: No Hx Gastric Bypass Surgery: No Hx Herniorrhaphy: No Hx Hysterectomy: No Hx Joint Replacement: No Hx Kidney Transplant: No Hx Liver Transplant: No Hx Mastectomy: No Hx Musculoskeletal Surgery: No Hx Open Heart Surgery: No Hx Open Reduction Internal Fixation: No Hx Orthopedic Surgery: No Hx Parathyroidectomy: No Hx Penile Implant: No Hx Pulmonary Surgery: No Hx Splenectomy: No (spleenic embolization) Hx Thyroidectomy: No Hx Tonsillectomy: No Hx Tubal Ligation: No Hx Valve Replacement: No Hx Vascular Surgery: No Hx Vascular Access Device: No Other/Comment: embolization of spleen/ - ANESTHESIA Hx Anesthesia: Yes Hx Anesthesia Reactions: No Hx Malignant Hyperthermia: No Has any member of the family had a problem w/ anesthesia?: No Meds Allergies/Adverse Reactions: Allergies Allergy/AdvReac Type Severity Reaction Status Date / Time ciprofloxacin [From Cipro] AdvReac Verified 05/14/18 20:54 - Medications Medications: Current Medications Acetaminophen (Tylenol 325mg Tab) 650 mg PO Q6 PRN PRN Reason: Fever >100.4 F Albuterol/Ipratropium (Duoneb 3 Mg/0.5 Mg (3 Ml) Ud) 3 ml INH RQ6 NAN Amoxicillin (Amoxil 500 Mg Cap) 500 mg PO Q12H FOR[facility], [facility]; Protocol Last Admin: 05/15/18 09:58 Dose: 500 mg Enoxaparin Sodium (Lovenox) 30 mg SC DAILY [facility], [facility]1983 Last Admin: 05/15/18 10:00 Dose: 30 mg Famotidine (Pepcid) 20 mg PO DAILY [facility]1983 Last Admin: 05/15/18 09:58 Dose: 20 mg Hydroxyurea (Hydrea) 500 mg PO BID [facility]1983 Last Admin: 05/15/18 10:00 Dose: 500 mg Ceftazidime/Avibactam 0.94 gm/ (Sodium Chloride) 100 mls @ 50 mls/hr IV Q12H [facility]1983 Last Admin: 05/15/18 19:06 Dose: 50 mls/hr Results - Vital Signs Recent Vital Signs: Last Vital Signs Temp 98.3 F 05/15/18 16:00 Pulse 114 H 05/15/18 18:00 Resp 38 H 05/15/18 18:00 BP 126/72 05/15/18 18:00 Pulse Ox 97 05/15/18 18:00 - Labs Result Diagrams: 05/15/18 05:45 05/15/18 05:45 Labs: Laboratory Results - last 24 hr 05/14/18 05/14/18 05/14/18 21:19 21:19 21:19 WBC 15.8 H RBC 3.53 L Hgb 10.3 L Hct 31.4 L MCV 89.0 D MCH 29.3 MCHC 32.9 L RDW 18.7 H Plt Count 106 L D MPV 13.0 H Neut % (Auto) 81.0 H Lymph % (Auto) 10.0 L [place] % (Auto) 7.5 Eos % (Auto) 0.6 Baso % (Auto) 0.9 Neut # (Auto) 12.8 H Lymph # (Auto) 1.6 [place] # (Auto) 1.2 H Eos # (Auto) 0.1 Baso # (Auto) 0.1 Neutrophils % (Manual) Lymphocytes % (Manual) Monocytes % (Manual) Nucleated RBC % Platelet Estimate Large Platelets Giant Platelets Hypochromasia (manual) Poikilocytosis (manual Anisocytosis (manual) Microcytosis (manual) Macrocytosis (manual) Target Cells Tear Drop Cells Ovalocytes [place] Cells pO2 VBG pH VBG pCO2 VBG HCO3 VBG Total CO2 VBG O2 Sat (Calc) VBG Base Excess VBG Potassium Glucose Lactate Sodium 132 Potassium 5.1 Chloride 101 Carbon Dioxide 20 L Anion Gap 17 BUN 80 H Creatinine 2.1 H Est GFR ( Amer) 28 Est GFR (Non-Af Amer) 23 Random Glucose 123 H Lactic Acid 0.8 Calcium 8.0 L Phosphorus Magnesium Total Bilirubin 0.8 AST 32 ALT 43 Alkaline Phosphatase 160 H Total Protein 6.1 L Albumin 3.0 L D Globulin 3.1 Albumin/Globulin Ratio 1.0 Venous Blood Potassium 05/14/18 05/15/18 05/15/18 21:29 05:45 05:45 WBC 17.4 H RBC 3.41 L Hgb 9.8 L Hct 30.3 L MCV 88.9 MCH 28.7 MCHC 32.3 L RDW 18.8 H Plt Count 91 L MPV 12.7 H Neut % (Auto) 76.6 H Lymph % (Auto) 9.1 L [place] % (Auto) 13.3 H Eos % (Auto) 0.1 Baso % (Auto) 0.9 Neut # (Auto) 13.4 H Lymph # (Auto) 1.6 [place] # (Auto) 2.3 H Eos # (Auto) 0.0 Baso # (Auto) 0.2 Neutrophils % (Manual) 79 H Lymphocytes % (Manual) 6 L Monocytes % (Manual) 15 H Nucleated RBC % 5 H Platelet Estimate Decreased L Large Platelets Present Giant Platelets Present Hypochromasia (manual) Slight Poikilocytosis (manual Slight Anisocytosis (manual) Slight Microcytosis (manual) Slight Macrocytosis (manual) Slight Target Cells Slight Tear Drop Cells Slight Ovalocytes Slight [place]mata Cells Slight pO2 32 VBG pH 7.41 VBG pCO2 30 L VBG HCO3 20.5 VBG Total CO2 19.9 L VBG O2 Sat (Calc) 64.6 VBG Base Excess -4.5 L VBG Potassium 5.2 Glucose 130 H Lactate 1.9 Sodium 135.0 134 Potassium 4.8 Chloride 108.0 H 105 Carbon Dioxide 19 L Anion Gap 14 BUN 81 H Creatinine 2.0 H Est GFR ( Amer) 30 Est GFR (Non-Af Amer) 25 Random Glucose 129 H Lactic Acid Calcium 7.6 L Phosphorus 5.7 H Magnesium 1.8 Total Bilirubin 0.9 AST 27 ALT 44 Alkaline Phosphatase 132 H Total Protein 5.3 L Albumin 2.5 L Globulin 2.8 Albumin/Globulin Ratio 0.9 L Venous Blood Potassium 5.2
[2018-05-16] MEDS: Albuterol-Ipratrop 3 mg / 0.5 (3 ml) UD INH SCH ×4 (01:08→19:44)
[2018-05-16 07:24] LABS: BASO # 0.3 K/uL (0.0-0.2); BASO % 2.5 % (0.0-2.0); HEMOGLOBIN 9.8 g/dL (11.0-16.0); LYMPH # 0.7 K/uL (1.0-4.3); LYMPH % 5.5 % (20.0-40.0); MEAN CELL VOLUME 90.1 fL (81.0-99.0); MEAN CORPUSCULAR HEMOGLOBIN 29.2 pg (27.0-31.0); MEAN CORPUSCULAR HGB CONC 32.4 g/dL (33.0-37.0); MEAN PLATELET VOLUME 12.7 fL (7.2-11.7); MONO # 1.1 K/uL (0.0-0.8); MONO % 9.2 % (0.0-10.0); NEUT # 10.3 K/uL (1.8-7.0); NEUT % 82.8 % (50.0-75.0); NRBC % 6.5 % (0.0-2.0); PLATELET COUNT 83 K/uL (130-400); RBC 3.35 Mil/uL (3.80-5.20); RED CELL DISTRIBUTION WIDTH 19.3 % (11.5-14.5); WHITE BLOOD COUNT 12.5 K/uL (4.8-10.8)
[2018-05-16 08:00] LABS: ALB/GLOB RATIO 0.9 (1.0-2.1); ALBUMIN 2.4 g/dL (3.5-5.0); CALCIUM 7.8 mg/dl (8.6-10.4)
[2018-05-16 08:34] LABS: BANDS 1 % (0-2); LYMPHOCYTE 7 % (20-40); MONOCYTE 2 % (0-10); NEUTROPHIL 90 % (50-75); NUCLEATED RED BLOOD CELL 1 % (0-0); TOTAL CELLS COUNTED 100
[2018-05-16 08:35] LABS: ANISOCYTOSIS SLIGHT; PLATELET ESTIMATE DECREASED (NORMAL)
[2018-05-16 08:36] LABS: HYPOCHROMIC SLIGHT
[2018-05-16 08:37] LABS: BURR CELLS SLIGHT; LARGE PLATELETS PRESENT; POLYCHROMIC SLIGHT
--- NOTE | 2018-05-16 10:49 | CP.PCM.PN ---
Subjective - Date & Time of Evaluation Date of Evaluation: 05/16/18 Time of Evaluation: 12:15 - Subjective Subjective: clinically same Objective - Vital Signs/Intake and Output Vital Signs (last 24 hours): Temp Pulse Resp BP Pulse Ox 99.1 F 129 H 28 H 108/62 95 05/16/18 08:00 05/16/18 08:00 05/16/18 08:00 05/16/18 08:00 05/16/18 08:00 Intake and Output: 05/16/18 05/16/18 06:59 18:59 Intake Total 900 Output Total 450 Balance 450 - Medications Medications: Current Medications Acetaminophen (Tylenol 325mg Tab) 650 mg PO Q6 PRN PRN Reason: Fever >100.4 F Last Admin: 05/16/18 06:38 Dose: 650 mg Albuterol/Ipratropium (Duoneb 3 Mg/0.5 Mg (3 Ml) Ud) 3 ml INH RQ6 [facility] Last Admin: 05/16/18 01:08 Dose: 3 ml Enoxaparin Sodium (Lovenox) 30 mg SC DAILY [facility] Last Admin: 05/15/18 10:00 Dose: 30 mg Famotidine (Pepcid) 20 mg PO DAILY [facility] Last Admin: 05/15/18 09:58 Dose: 20 mg Hydroxyurea (Hydrea) 500 mg PO BID [facility] Last Admin: 05/15/18 10:00 Dose: 500 mg Ceftazidime/Avibactam 0.94 gm/ (Sodium Chloride) 100 mls @ 50 mls/hr IV Q12H [facility] Last Admin: 05/16/18 06:39 Dose: 50 mls/hr - Labs Labs: 05/16/18 07:16 05/16/18 07:16 - Constitutional Appears: Well - Head Exam Head Exam: ATRAUMATIC, NORMAL INSPECTION, NORMOCEPHALIC - Eye Exam Eye Exam: EOMI, Normal appearance, PERRL Pupil Exam: NORMAL ACCOMODATION, PERRL - ENT Exam ENT Exam: Mucous Membranes Moist, Normal Exam - Neck Exam Neck Exam: Full ROM, Normal Inspection. absent: Lymphadenopathy - Respiratory Exam Respiratory Exam: Decreased Breath Sounds - Cardiovascular Exam Cardiovascular Exam: REGULAR RHYTHM, +S1, +S2 - GI/Abdominal Exam GI & Abdominal Exam: Soft, Diminished Bowel Sounds - Rectal Exam Rectal Exam: Deferred Assessment and Plan (1) Abdominal pain Status: Acute (2) Anemia Status: Acute (3) Atrial fibrillation, new onset Status: Acute (4) CHF (congestive heart failure) Status: Acute (5) DVT (deep venous thrombosis) Status: Acute (6) Elevated brain natriuretic peptide (BNP) level Status: Acute (7) Hepatosplenomegaly Status: Acute (8) Hydronephrosis, right Status: Acute (9) Leucocytosis Status: Acute (10) Myelofibrosis Status: Acute (11) Portal vein thrombosis Status: Acute (12) Prophylactic measure Status: Acute (13) Pyelonephritis Status: Acute (14) Pyelonephritis due to Escherichia coli Status: Acute (15) Renal insufficiency Status: Acute (16) Spleen hematoma Status: Acute (17) Splenic hemorrhage Status: Acute (18) Thrombocytopenia Status: Acute (19) UTI (urinary tract infection) Status: Acute (20) Varices of other sites Status: Acute - Assessment and Plan (Free Text) Plan: Patient seen and examined at bedside Labs and meds reviewed Overnight events noted WBC 12.5 Antibiotics as per ID Nebulizers DVT/GI prophylaxis Hydroxyurea Multiple consultants on board Monitor input output
--- NOTE | 2018-05-16 11:27 | CARD ---
APPROVED REPORT Date of service: 05/14/2018 EKG Measurement Heart [id number] <Conclusion> Sinus tachycardia Otherwise normal ECG
[2018-05-16] MEDS: Enoxaparin 30 mg Syringe SC SCH (11:32)
--- NOTE | 2018-05-16 15:14 | CP.CCUPN ---
<Haley Meza L - Last Filed: 05/16/18 16:00> CCU Subjective - Physician Review Subjective (Free Text): Resident Critical Care Progress Note Patient examined at bedside. She is resting comfortably and states that she feels better today. Offers no complaints at this time. Denies fevers, chills, headache, dizziness, chest pain, shortness of breath. Critical Care Time Spent (in minutes): 35 CCU Objective - Vital Signs / Intake & Output Vital Signs (Last 4 hours): Vital Signs Temp Pulse Resp BP Pulse Ox 05/16/18 12:18 100 H 24 100 05/16/18 12:00 97.4 F L 98 H 28 H 110/63 99 Intake and Output (Last 8hrs): Intake & Output 05/16/18 05/16/18 05/16/18 06:59 14:59 22:59 Intake Total 500 220 Output Total 450 Balance 50 220 Weight 180 lb 8 oz Intake: Intake, IV Amount 100 Left wrist 100 Right Wrist 0 Oral 400 220 Output: Urine 450 Urine, Voided 450 Emesis 0 Other: # Voids Urine, Voided 1 # Bowel Movements 0 - Physical Exam Head: Positive for: Atraumatic, Normocephalic Pupils: Positive for: PERRL Extroacular Muscles: Positive for: EOMI Conjunctiva: Positive for: Normal Ears: Positive for: Normal Mouth: Positive for: Moist Mucous Membranes Nose (External): Positive for: Atraumatic Neck: Positive for: Normal Range of Motion Respiratory/Chest: Positive for: Good Air Exchange, Rhonchi. Negative for: Respiratory Distress Cardiovascular: Positive for: Regular Rate and Rhythm, Normal S1, S2 Abdomen: Positive for: Tenderness (mild tenderness in LUQ). Negative for: Distention, Peritoneal Signs, Rebound Upper Extremity: Positive for: Normal Inspection. Negative for: Cyanosis, Edema Lower Extremity: Positive for: Normal Inspection. Negative for: Edema, CALF TENDERNESS Neurological: Positive for: GCS=15, CN II-XII Intact, Speech Normal Skin: Positive for: Warm, Dry, Normal Color Psychiatric: Positive for: Alert, Oriented x 3 - Medications Active Medications: Active Medications Generic Name Dose Route Start Last Admin Trade Name Freq PRN Reason Stop Dose Admin Acetaminophen 650 mg 05/15/18 08:56 05/16/18 06:38 Tylenol 325mg Tab PO 650 mg Q6 PRN Administration Fever >100.4 F Albuterol/Ipratropium 3 ml 05/15/18 12:00 05/16/18 13:27 Duoneb 3 Mg/0.5 Mg (3 Ml) Ud INH 3 ml RQ6 NAN Administration Enoxaparin Sodium 30 mg 05/15/18 10:00 05/16/18 11:32 Lovenox SC 30 mg DAILY NAN Administration Famotidine 20 mg 05/15/18 10:00 05/16/18 11:31 Pepcid PO 20 mg DAILY NAN Administration Hydroxyurea 500 mg 05/15/18 10:00 05/15/18 10:00 Hydrea PO 500 mg BID NAN Administration Ceftazidime/Avibactam 0.94 gm/ 100 mls @ 50 mls/hr 05/15/18 19:00 05/16/18 06:39 Sodium Chloride IV 50 mls/hr Q12H NAN Administration - Patient Studies Lab Studies: Microbiology Studies 05/15/18 06:27 MRSA Culture (Admit) - Final Nose MRSA NOT DETECTED 05/14/18 21:45 Blood Culture - Preliminary Blood Gram Negative Sy Gram Stain - Final 05/14/18 21:00 Blood Culture - Preliminary Blood NO GROWTH AFTER 24 HOURS Lab Studies 05/16/18 05/16/18 Range/Units 07:16 07:16 WBC 12.5 H (4.8-10.8) K/uL RBC 3.35 L (3.80-5.20) Mil/uL Hgb 9.8 L (11.0-16.0) g/dL Hct 30.2 L (34.0-47.0) % MCV 90.1 (81.0-99.0) fL MCH 29.2 (27.0-31.0) pg MCHC 32.4 L (33.0-37.0) g/dL RDW 19.3 H (11.5-14.5) % Plt Count 83 L (130-400) K/uL MPV 12.7 H (7.2-11.7) fL Neut % (Auto) 82.8 H (50.0-75.0) % Lymph % (Auto) 5.5 L (20.0-40.0) % [place] % (Auto) 9.2 (0.0-10.0) % Eos % (Auto) 0.0 (0.0-4.0) % Baso % (Auto) 2.5 H (0.0-2.0) % Neut # (Auto) 10.3 H (1.8-7.0) K/uL Lymph # (Auto) 0.7 L (1.0-4.3) K/uL [place] # (Auto) 1.1 H (0.0-0.8) K/uL Eos # (Auto) 0.0 (0.0-0.7) K/uL Baso # (Auto) 0.3 H (0.0-0.2) K/uL Neutrophils % (Manual) 90 H (50-75) % Band Neutrophils % 1 (0-2) % Lymphocytes % (Manual) 7 L (20-40) % Monocytes % (Manual) 2 (0-10) % Nucleated RBC % 1 H (0-0) % Platelet Estimate Decreased L (NORMAL) Large Platelets Present Polychromasia Slight Hypochromasia (manual) Slight Anisocytosis (manual) Slight Fatmata Cells Slight Sodium 133 (132-148) mmol/L Potassium 4.9 (3.6-5.2) mmol/L Chloride 103 (98-107) mmol/L Carbon Dioxide 17 L (22-30) mmol/L Anion Gap 18 (10-20) BUN 96 H (7-17) mg/dL Creatinine 2.1 H (0.7-1.2) mg/dL Est GFR ( Amer) 28 Est GFR (Non-Af Amer) 23 Random Glucose 109 H (65-105) mg/dL Calcium 7.8 L (8.6-10.4) mg/dl Phosphorus 6.8 H (2.5-4.5) mg/dL Magnesium 1.8 (1.6-2.3) mg/dL Total Bilirubin 0.7 (0.2-1.3) mg/dL AST 9 L D (14-36) U/L ALT 31 (9-52) U/L Alkaline Phosphatase 101 (38-126) U/L Total Protein 5.2 L (6.3-8.3) g/dL Albumin 2.4 L (3.5-5.0) g/dL Globulin 2.8 (2.2-3.9) gm/dL Albumin/Globulin Ratio 0.9 L (1.0-2.1) Laboratory Results - last 24 hr 05/16/18 05/16/18 07:16 07:16 WBC 12.5 H RBC 3.35 L Hgb 9.8 L Hct 30.2 L MCV 90.1 MCH 29.2 MCHC 32.4 L RDW 19.3 H Plt Count 83 L MPV 12.7 H Neut % (Auto) 82.8 H Lymph % (Auto) 5.5 L [place] % (Auto) 9.2 Eos % (Auto) 0.0 Baso % (Auto) 2.5 H Neut # (Auto) 10.3 H Lymph # (Auto) 0.7 L [place] # (Auto) 1.1 H Eos # (Auto) 0.0 Baso # (Auto) 0.3 H Neutrophils % (Manual) 90 H Band Neutrophils % 1 Lymphocytes % (Manual) 7 L Monocytes % (Manual) 2 Nucleated RBC % 1 H Platelet Estimate Decreased L Large Platelets Present Polychromasia Slight Hypochromasia (manual) Slight Anisocytosis (manual) Slight [place] Cells Slight Sodium 133 Potassium 4.9 Chloride 103 Carbon Dioxide 17 L Anion Gap 18 BUN 96 H Creatinine 2.1 H Est GFR ( Amer) 28 Est GFR (Non-Af Amer) 23 Random Glucose 109 H Calcium 7.8 L Phosphorus 6.8 H Magnesium 1.8 Total Bilirubin 0.7 AST 9 L D ALT 31 Alkaline Phosphatase 101 Total Protein 5.2 L Albumin 2.4 L Globulin 2.8 Albumin/Globulin Ratio 0.9 L Review of Systems - Review of Systems All systems: reviewed and no additional remarkable complaints except (as mentioned in HPI) Critical Care Progress Note - Extremities/Vascular Does the Patient have a Central Venous Catheter?: No - Prophylaxis GI Prophylaxis GI: Pepsid - Prophylaxis DVT Prophylaxis DVT: Lovenox - Nutrition Nutrition: Nutrition Category Date Time Status Heart Healthy Diet [DIET] Diets 05/15/18 Breakfast Active Assessment/Plan - Assessment and Plan (Free Text) Plan: 67 year old female with a PMHx of myelofibrosis, HTN, renal insufficiency admitted with fever and UTI. Urine culture from 05/11/18 grew Enterococcus faecalis and Klebsiella pneumoniae. Neuro: - AAO x3 Pulm: - Nasal cannula as tolerated - Maintain SPO2 > 92% - Duonebs 3 ml INH RQ6 CV: - Currently hemodynamically stable - Eliquis held 09/20 acute hemorrhagic process emanating from the spleen - ECHO from previous admission showed normal left ventricle systolic function. EF 65-70%. Moderate pulmonary HTN. - Dopplers showed acute thrombosis of right gastrocnemius vein with severe reduction of venous return. GI: - Pepcid 20mg PO daily - 05/06 CT abdomen showed acute hemorrhagic process emanating from the spleen - s/p IR splenic artery embolization Renal: - SOFIA with Cr 2.1 - Monitor I and O - Replete electrolytes as needed - Urology Dr Flor Irvin consulted. Recs appreciated. ID: - Blood culture prelim gram negative sy - Tygacil 100 mg given - ID Dr. Jackson consulted. Recs appreciated. - Avycaz 0.94 g IV q12h Heme/Onc - Hx of myelofibrosis with chronic leukocytosis - Dr. Mcbride consulted. Recs appreciated. - Holding Arina Kennedy Endo: - Maintain euglycemia PPX: Pepcid 20 mg PO daily, Lovenox 30 mg SC daily Case and plan was reviewed and discussed with Dr. Fouzia Meza PGY-1 - Date & Time Date: 05/16/18 Time: 08:00 <Terrance Fragoso - Last Filed: 05/16/18 17:03> CCU Objective - Vital Signs / Intake & Output Intake and Output (Last 8hrs): Intake & Output 05/16/18 05/16/18 05/16/18 06:59 14:59 22:59 Intake Total 500 220 Output Total 450 Balance 50 220 Weight 180 lb 8 oz Intake: Intake, IV Amount 100 Left wrist 100 Right Wrist 0 Oral 400 220 Output: Urine 450 Urine, Voided 450 Emesis 0 Other: # Voids Urine, Voided 1 # Bowel Movements 0 2 - Medications Active Medications: Active Medications Generic Name Dose Route Start Last Admin Trade Name Freq PRN Reason Stop Dose Admin Acetaminophen 650 mg 05/15/18 08:56 05/16/18 06:38 Tylenol 325mg Tab PO 650 mg Q6 PRN Administration Fever >100.4 F Albuterol/Ipratropium 3 ml 05/15/18 12:00 05/16/18 13:27 Duoneb 3 Mg/0.5 Mg (3 Ml) Ud INH 3 ml RQ6 NAN Administration Enoxaparin Sodium 30 mg 05/15/18 10:00 05/16/18 11:32 Lovenox SC 30 mg DAILY NAN Administration Famotidine 20 mg 05/15/18 10:00 05/16/18 11:31 Pepcid PO 20 mg DAILY NAN Administration Hydroxyurea 500 mg 05/15/18 10:00 05/15/18 10:00 Hydrea PO 500 mg BID NAN Administration Ceftazidime/Avibactam 0.94 gm/ 100 mls @ 50 mls/hr 05/15/18 19:00 05/16/18 06:39 Sodium Chloride IV 50 mls/hr Q12H NAN Administration - Patient Studies Lab Studies: Microbiology Studies 05/15/18 06:27 MRSA Culture (Admit) - Final Nose MRSA NOT DETECTED 05/14/18 21:45 Blood Culture - Preliminary Blood Gram Negative Sy Gram Stain - Final 05/14/18 21:00 Blood Culture - Preliminary Blood NO GROWTH AFTER 24 HOURS Lab Studies 05/16/18 05/16/18 Range/Units 07:16 07:16 WBC 12.5 H (4.8-10.8) K/uL RBC 3.35 L (3.80-5.20) Mil/uL Hgb 9.8 L (11.0-16.0) g/dL Hct 30.2 L (34.0-47.0) % MCV 90.1 (81.0-99.0) fL MCH 29.2 (27.0-31.0) pg MCHC 32.4 L (33.0-37.0) g/dL RDW 19.3 H (11.5-14.5) % Plt Count 83 L (130-400) K/uL MPV 12.7 H (7.2-11.7) fL Neut % (Auto) 82.8 H (50.0-75.0) % Lymph % (Auto) 5.5 L (20.0-40.0) % [place] % (Auto) 9.2 (0.0-10.0) % Eos % (Auto) 0.0 (0.0-4.0) % Baso % (Auto) 2.5 H (0.0-2.0) % Neut # (Auto) 10.3 H (1.8-7.0) K/uL Lymph # (Auto) 0.7 L (1.0-4.3) K/uL [place] # (Auto) 1.1 H (0.0-0.8) K/uL Eos # (Auto) 0.0 (0.0-0.7) K/uL Baso # (Auto) 0.3 H (0.0-0.2) K/uL Neutrophils % (Manual) 90 H (50-75) % Band Neutrophils % 1 (0-2) % Lymphocytes % (Manual) 7 L (20-40) % Monocytes % (Manual) 2 (0-10) % Nucleated RBC % 1 H (0-0) % Platelet Estimate Decreased L (NORMAL) Large Platelets Present Polychromasia Slight Hypochromasia (manual) Slight Anisocytosis (manual) Slight [place] Cells Slight Sodium 133 (132-148) mmol/L Potassium 4.9 (3.6-5.2) mmol/L Chloride 103 (98-107) mmol/L Carbon Dioxide 17 L (22-30) mmol/L Anion Gap 18 (10-20) BUN 96 H (7-17) mg/dL Creatinine 2.1 H (0.7-1.2) mg/dL Est GFR ( Amer) 28 Est GFR (Non-Af Amer) 23 Random Glucose 109 H (65-105) mg/dL Calcium 7.8 L (8.6-10.4) mg/dl Phosphorus 6.8 H (2.5-4.5) mg/dL Magnesium 1.8 (1.6-2.3) mg/dL Total Bilirubin 0.7 (0.2-1.3) mg/dL AST 9 L D (14-36) U/L ALT 31 (9-52) U/L Alkaline Phosphatase 101 (38-126) U/L Total Protein 5.2 L (6.3-8.3) g/dL Albumin 2.4 L (3.5-5.0) g/dL Globulin 2.8 (2.2-3.9) gm/dL Albumin/Globulin Ratio 0.9 L (1.0-2.1) Laboratory Results - last 24 hr 05/16/18 05/16/18 07:16 07:16 WBC 12.5 H RBC 3.35 L Hgb 9.8 L Hct 30.2 L MCV 90.1 MCH 29.2 MCHC 32.4 L RDW 19.3 H Plt Count 83 L MPV 12.7 H Neut % (Auto) 82.8 H Lymph % (Auto) 5.5 L [place] % (Auto) 9.2 Eos % (Auto) 0.0 Baso % (Auto) 2.5 H Neut # (Auto) 10.3 H Lymph # (Auto) 0.7 L [place] # (Auto) 1.1 H Eos # (Auto) 0.0 Baso # (Auto) 0.3 H Neutrophils % (Manual) 90 H Band Neutrophils % 1 Lymphocytes % (Manual) 7 L Monocytes % (Manual) 2 Nucleated RBC % 1 H Platelet Estimate Decreased L Large Platelets Present Polychromasia Slight Hypochromasia (manual) Slight Anisocytosis (manual) Slight Fatmata Cells Slight Sodium 133 Potassium 4.9 Chloride 103 Carbon Dioxide 17 L Anion Gap 18 BUN 96 H Creatinine 2.1 H Est GFR ( Amer) 28 Est GFR (Non-Af Amer) 23 Random Glucose 109 H Calcium 7.8 L Phosphorus 6.8 H Magnesium 1.8 Total Bilirubin 0.7 AST 9 L D ALT 31 Alkaline Phosphatase 101 Total Protein 5.2 L Albumin 2.4 L Globulin 2.8 Albumin/Globulin Ratio 0.9 L Critical Care Progress Note - Nutrition Nutrition: Nutrition Category Date Time Status Heart Healthy Diet [DIET] Diets 05/15/18 Breakfast Active Attending/Attestation - Attestation I have personally seen and examined this patient.: Yes I have fully participated in the care of the patient.: Yes I have reviewed all pertinent clinical information: Yes Notes (Text): 05/16/18 16:53 I have seen and examined the patient. Medical records, lab studies, and imaging were reviewed by me and a management plan was formulated on multidisciplinary rounds with resident Dr. De Leon. I agree with their documented assessment and plan. Continuing treatment with Ceftazidime-Avibactam, patient appears to be responding well clinically. Will discuss with urology if there is a need for replacement of the ureteral stent. Critical Care Time 35 minutes. Multi-disciplinary rounds were performed with house staff, nursing, speech therapy, respiratory therapy, pharmacy and nutrition with integrated input from the primary team/attending and other consulting services. The documented time is cumulative and includes review of patient data/exams/labs/chart review and examination of the patient on rounds and throughout the day; time is exclusive of any procedures or teaching time.
--- NOTE | 2018-05-16 18:29 | CP.PCM.PN ---
Subjective - Date & Time of Evaluation Date of Evaluation: 05/16/18 Time of Evaluation: 18:25 - Subjective Subjective: INFECTIOUS DISEASE ICU PROGRESS NOTES JANY PATTERSON MD, FACP ICU#2 CHART REVIEWED PT EXAMINED CASE DISCUSSED RESTING AFEBRILE BUT LOOKS VERY WORN! - Physical Exam Head: Positive for: Atraumatic, Normocephalic Pupils: Positive for: PERRL Extroacular Muscles: Positive for: EOMI Conjunctiva: Positive for: Normal Ears: Positive for: Normal Mouth: Positive for: Moist Mucous Membranes Nose (External): Positive for: Atraumatic Neck: Positive for: Normal Range of Motion Respiratory/Chest: Positive for: Good Air Exchange, Rhonchi. Negative for: Respiratory Distress Cardiovascular: Positive for: Regular Rate and Rhythm, Normal S1, S2 Abdomen: Positive for: Tenderness (mild tenderness in LUQ). Negative for: Distention, Peritoneal Signs, Rebound Upper Extremity: Positive for: Normal Inspection. Negative for: Cyanosis, Edema Lower Extremity: Positive for: Normal Inspection. Negative for: Edema, CALF TENDERNESS Neurological: Positive for: GCS=15, CN II-XII Intact, Speech Normal Skin: Positive for: Warm, Dry, Normal Color Psychiatric: Positive for: Alert, Oriented x 3 LUNGS DECREASED BREATH SOUNDS COR RR ABD SOFT POOR APPETITE LABS BETTER CBC CMP STABLE RENAL FUNCTION CONTINUE DOSE OF AVYCAZ PLEASE FOLLOW DAILY CBC/CMP JANY PATTERSON MD, FACP Objective - Vital Signs/Intake and Output Vital Signs (last 24 hours): Temp Pulse Resp BP Pulse Ox 97.9 F 103 H 22 116/51 L 100 05/16/18 16:00 05/16/18 18:00 05/16/18 18:00 05/16/18 18:00 05/16/18 18:00 Intake and Output: 05/16/18 05/16/18 06:59 18:59 Intake Total 900 220 Output Total 450 300 Balance 450 -80 - Medications Medications: Current Medications Acetaminophen (Tylenol 325mg Tab) 650 mg PO Q6 PRN PRN Reason: Fever >100.4 F Last Admin: 05/16/18 06:38 Dose: 650 mg Albuterol/Ipratropium (Duoneb 3 Mg/0.5 Mg (3 Ml) Ud) 3 ml INH RQ6 [facility] Last Admin: 05/16/18 13:27 Dose: 3 ml Enoxaparin Sodium (Lovenox) 30 mg SC DAILY [facility] Last Admin: 05/16/18 11:32 Dose: 30 mg Famotidine (Pepcid) 20 mg PO DAILY [facility] Last Admin: 05/16/18 11:31 Dose: 20 mg Hydroxyurea (Hydrea) 500 mg PO BID [facility] Last Admin: 05/15/18 10:00 Dose: 500 mg Ceftazidime/Avibactam 0.94 gm/ (Sodium Chloride) 100 mls @ 50 mls/hr IV Q12H [facility] Last Admin: 05/16/18 06:39 Dose: 50 mls/hr - Labs Labs: 05/16/18 07:16 05/16/18 07:16
--- NOTE | 2018-05-16 19:36 | CP.PCM.CON ---
Past Patient History - Infectious Disease Hx of Infectious Diseases: None - Past Medical History & Family History Past Medical History?: Yes - Past Social History Smoking Status: Never Smoked - CARDIAC Hx Cardiac Disorders: Yes Hx Congestive Heart Failure: Yes (Diastolic heart failure) Hx Hypercholesterolemia: No Hx Hypertension: Yes - PULMONARY Hx Chronic Obstructive Pulmonary Disease (COPD): No - NEUROLOGICAL HX Cerebrovascular Accident: No - HEENT Hx HEENT Problems: Yes Hx Blind: No Hx Cataracts: Yes Hx Deafness: No Hx Difficulty Chewing: No Hx Epistaxis: No Hx Glaucoma: Yes Hx Macular Degeneration: No Hx Sinusitis: No Other/Comment: Hx of eye surgery for repair - RENAL Hx Renal Failure: Yes - ENDOCRINE/METABOLIC Hx Diabetes Mellitus Type 1: No Hx Diabetes Mellitus Type 2: No Hx Hypothyroidism: No - HEMATOLOGICAL/ONCOLOGICAL Hx Blood Disorders: Yes Hx AIDS: No Hx Anemia: Yes Hx Blood Transfusions: Yes Hx Blood Transfusion Reaction: No Hx Bruising: No Hx Cancer: No Hx Chemotherapy: No Hx Cirrhosis: No Hx Gum Bleeding: No Hx Hemophilia: No Hx Hepatitis A: No Hx Hepatitis B: No Hx Hepatitis C: No Hx Human Immunodeficiency Virus (HIV): No Hx Leukemia: No Hx Metastesis: No Hx Shingles: No Hx Sickle Cell Disease: No Hx Unexplained Bleeding: No Hx von Willebrand's Disease: No Other/Comment: Myelofibrosis, Myelodysplasia - INTEGUMENTARY Hx Dermatological Problems: No Hx Basil Cell: No Hx Bryant: No Hx Cellulitis: No Hx Eczema: No Hx Melanoma: No Hx Psoriasis: No Hx Squamous Cell: No - MUSCULOSKELETAL/RHEUMATOLOGICAL Hx Arthritis: Yes Hx Rheumatoid Arthritis: No - GASTROINTESTINAL Hx Gastrointestinal Disorders: No Hx Bowel Surgery: No Hx Clostridium Difficile: No Hx Colitis: No Hx Colostomy: No Hx Constipation: No Hx Crohn's Disease: No Hx Diarrhea: No Hx Diverticulitis: No Hx Esophageal Varices: No Hx Fatty Liver Disease: No Hx Gall Bladder Disease: No Hx Gastritis: No Hx Gastroesophageal Reflux: No Hx Hemorrhoids: No Hx Ileostomy: No Hx Irritable Bowel: No Hx Liver Failure: No Hx Nausea: No Hx Pancreatitis: No HX Swallowing Problems: No Hx Ulcer: No Hx Vomiting: No Other/Comment: Hx of hepatospleenomegaly and spleenic embolization - GENITOURINARY/GYNECOLOGICAL Hx Genitourinary Disorders: Yes Hx Bladder Cancer: No Hx Bladder Stone: Yes Hx Cervical Cancer: No Hx Hematuria: No Hx Incontinence: No Hx Ovarian Cancer: No Hx Postmenopausal Bleeding: No Hx Reproductive Disorders: No Hx Sexually Transmitted Disorders: No Hx Uterine Cancer: No Hx Urinary Tract Infection: Yes Other/Comment: urethral strictor, - PSYCHIATRIC Hx Psychophysiologic Disorder: No Hx Anxiety: No Hx Bipolar Disorder: No Hx Depression: No Hx Emotional Abuse: No Hx Hallucinations: No Hx Panic Symptoms: No Hx Paranoia: No Hx Post Traumatic Stress Disorder: No Hx Psychosis: No Hx Physical Abuse: No Hx Schizophrenia: No Hx Sexual Abuse: No Hx Substance Use: No - SURGICAL HISTORY Hx Surgeries: Yes Hx Abdominal Aortic Aneurysm Repair: No Hx Amputation: No Hx Angiogram: No Hx Angioplasty: No Hx Appendectomy: No Hx Arteriovenous Shunt: No Hx Arthroscopy: No Hx Bile Duct Stent: No Hx Breast Biopsy: No Hx Cataract Extraction: No Hx Cardiac Catheterization: No Hx Carotid Endarterectomy: No Hx Section: No Hx Cholecystectomy: No Hx Coronary Artery Bypass Graft: No Hx Coronary Stent: No Hx Dilation and Curettage: No Hx Eye Surgery: Yes Hx Femoral-Popliteal Bypass Graft: No Hx Gastric Bypass Surgery: No Hx Herniorrhaphy: No Hx Hysterectomy: No Hx Joint Replacement: No Hx Kidney Transplant: No Hx Liver Transplant: No Hx Mastectomy: No Hx Musculoskeletal Surgery: No Hx Open Heart Surgery: No Hx Open Reduction Internal Fixation: No Hx Orthopedic Surgery: No Hx Parathyroidectomy: No Hx Penile Implant: No Hx Pulmonary Surgery: No Hx Splenectomy: No (spleenic embolization) Hx Thyroidectomy: No Hx Tonsillectomy: No Hx Tubal Ligation: No Hx Valve Replacement: No Hx Vascular Surgery: No Hx Vascular Access Device: No Other/Comment: embolization of spleen/ - ANESTHESIA Hx Anesthesia: Yes Hx Anesthesia Reactions: No Hx Malignant Hyperthermia: No Has any member of the family had a problem w/ anesthesia?: No Meds Allergies/Adverse Reactions: Allergies Allergy/AdvReac Type Severity Reaction Status Date / Time ciprofloxacin [From Cipro] AdvReac Verified 05/14/18 20:54 - Medications Medications: Current Medications Acetaminophen (Tylenol 325mg Tab) 650 mg PO Q6 PRN PRN Reason: Fever >100.4 F Last Admin: 05/16/18 06:38 Dose: 650 mg Albuterol/Ipratropium (Duoneb 3 Mg/0.5 Mg (3 Ml) Ud) 3 ml INH RQ6 [facility] Last Admin: 05/16/18 13:27 Dose: 3 ml Enoxaparin Sodium (Lovenox) 30 mg SC DAILY [facility] Last Admin: 05/16/18 11:32 Dose: 30 mg Famotidine (Pepcid) 20 mg PO DAILY [facility] Last Admin: 05/16/18 11:31 Dose: 20 mg Hydroxyurea (Hydrea) 500 mg PO BID [facility] Last Admin: 05/15/18 10:00 Dose: 500 mg Ceftazidime/Avibactam 0.94 gm/ (Sodium Chloride) 100 mls @ 50 mls/hr IV Q12H [facility] Last Admin: 05/16/18 18:38 Dose: 50 mls/hr Results - Vital Signs Recent Vital Signs: Last Vital Signs Temp 97.9 F 05/16/18 16:00 Pulse 103 H 05/16/18 18:00 Resp 22 05/16/18 18:00 BP 116/51 L 05/16/18 18:00 Pulse Ox 100 05/16/18 18:00 - Labs Result Diagrams: 05/16/18 07:16 05/16/18 07:16 Labs: Laboratory Results - last 24 hr 05/16/18 05/16/18 07:16 07:16 WBC 12.5 H RBC 3.35 L Hgb 9.8 L Hct 30.2 L MCV 90.1 MCH 29.2 MCHC 32.4 L RDW 19.3 H Plt Count 83 L MPV 12.7 H Neut % (Auto) 82.8 H Lymph % (Auto) 5.5 L [place] % (Auto) 9.2 Eos % (Auto) 0.0 Baso % (Auto) 2.5 H Neut # (Auto) 10.3 H Lymph # (Auto) 0.7 L [place] # (Auto) 1.1 H Eos # (Auto) 0.0 Baso # (Auto) 0.3 H Neutrophils % (Manual) 90 H Band Neutrophils % 1 Lymphocytes % (Manual) 7 L Monocytes % (Manual) 2 Nucleated RBC % 1 H Platelet Estimate Decreased L Large Platelets Present Polychromasia Slight Hypochromasia (manual) Slight Anisocytosis (manual) Slight Fatmata Cells Slight Sodium 133 Potassium 4.9 Chloride 103 Carbon Dioxide 17 L Anion Gap 18 BUN 96 H Creatinine 2.1 H Est GFR ( Amer) 28 Est GFR (Non-Af Amer) 23 Random Glucose 109 H Calcium 7.8 L Phosphorus 6.8 H Magnesium 1.8 Total Bilirubin 0.7 AST 9 L D ALT 31 Alkaline Phosphatase 101 Total Protein 5.2 L Albumin 2.4 L Globulin 2.8 Albumin/Globulin Ratio 0.9 L Assessment & Plan - Assessment and Plan (Free Text) Assessment: IMP: UTI BACTEREMIA ABD PAIN R HYDRONEPHROSIS R URETERSL STENT IN PLACE MYELOPLASTIC DISORDER DVT SPLENIC DISEASE HX OF AFIB FULL NOTE TBD YS - Date & Time Date: 05/16/18 Time: 12:00
--- NOTE | 2018-05-16 21:27 | CP.PCM.CON ---
History of Present Illness - History of Present Illness History of Present Illness: 67 year old female with a history of myelofibrosis on Jakafi and Hydrea, recurrent urinary tract infections s/p recent ureteral stent, recently discharge after prolonged hospitalziation for paroxysmal afib, splenic hemorrhage s/p splenic artery embolization, LE DVT, admitted with urosepsis. The patient had fatigue and fevers and was brought to the hospital. Cultures revealed urine infection with gram negative bacteremia. Her Jakafi and Hydrea have been held. She did have a Past medical history: Myelofibrosis, recurrent UTI Past surgical history: Denies Family history: Denies hematologic and oncologic problems Social history: Denies tobacco, alcohol, and illicit drug use Allergies: NKA Review of systems: All remaining review of systems including HEENT, cardiovascular, respiratory, gastrointestinal, genitourinary, musculoskeletal, dermatologic, neurologic, and psychiatric are negative unless mentioned in the HPI. Past Patient History - Infectious Disease Hx of Infectious Diseases: None - Past Medical History & Family History Past Medical History?: Yes - Past Social History Smoking Status: Never Smoked - CARDIAC Hx Cardiac Disorders: Yes Hx Congestive Heart Failure: Yes (Diastolic heart failure) Hx Hypercholesterolemia: No Hx Hypertension: Yes - PULMONARY Hx Chronic Obstructive Pulmonary Disease (COPD): No - NEUROLOGICAL HX Cerebrovascular Accident: No - HEENT Hx HEENT Problems: Yes Hx Blind: No Hx Cataracts: Yes Hx Deafness: No Hx Difficulty Chewing: No Hx Epistaxis: No Hx Glaucoma: Yes Hx Macular Degeneration: No Hx Sinusitis: No Other/Comment: Hx of eye surgery for repair - RENAL Hx Renal Failure: Yes - ENDOCRINE/METABOLIC Hx Diabetes Mellitus Type 1: No Hx Diabetes Mellitus Type 2: No Hx Hypothyroidism: No - HEMATOLOGICAL/ONCOLOGICAL Hx Blood Disorders: Yes Hx AIDS: No Hx Anemia: Yes Hx Blood Transfusions: Yes Hx Blood Transfusion Reaction: No Hx Bruising: No Hx Cancer: No Hx Chemotherapy: No Hx Cirrhosis: No Hx Gum Bleeding: No Hx Hemophilia: No Hx Hepatitis A: No Hx Hepatitis B: No Hx Hepatitis C: No Hx Human Immunodeficiency Virus (HIV): No Hx Leukemia: No Hx Metastesis: No Hx Shingles: No Hx Sickle Cell Disease: No Hx Unexplained Bleeding: No Hx von Willebrand's Disease: No Other/Comment: Myelofibrosis, Myelodysplasia - INTEGUMENTARY Hx Dermatological Problems: No Hx Basil Cell: No Hx Bryant: No Hx Cellulitis: No Hx Eczema: No Hx Melanoma: No Hx Psoriasis: No Hx Squamous Cell: No - MUSCULOSKELETAL/RHEUMATOLOGICAL Hx Arthritis: Yes Hx Rheumatoid Arthritis: No - GASTROINTESTINAL Hx Gastrointestinal Disorders: No Hx Bowel Surgery: No Hx Clostridium Difficile: No Hx Colitis: No Hx Colostomy: No Hx Constipation: No Hx Crohn's Disease: No Hx Diarrhea: No Hx Diverticulitis: No Hx Esophageal Varices: No Hx Fatty Liver Disease: No Hx Gall Bladder Disease: No Hx Gastritis: No Hx Gastroesophageal Reflux: No Hx Hemorrhoids: No Hx Ileostomy: No Hx Irritable Bowel: No Hx Liver Failure: No Hx Nausea: No Hx Pancreatitis: No HX Swallowing Problems: No Hx Ulcer: No Hx Vomiting: No Other/Comment: Hx of hepatospleenomegaly and spleenic embolization - GENITOURINARY/GYNECOLOGICAL Hx Genitourinary Disorders: Yes Hx Bladder Cancer: No Hx Bladder Stone: Yes Hx Cervical Cancer: No Hx Hematuria: No Hx Incontinence: No Hx Ovarian Cancer: No Hx Postmenopausal Bleeding: No Hx Reproductive Disorders: No Hx Sexually Transmitted Disorders: No Hx Uterine Cancer: No Hx Urinary Tract Infection: Yes Other/Comment: urethral strictor, - PSYCHIATRIC Hx Psychophysiologic Disorder: No Hx Anxiety: No Hx Bipolar Disorder: No Hx Depression: No Hx Emotional Abuse: No Hx Hallucinations: No Hx Panic Symptoms: No Hx Paranoia: No Hx Post Traumatic Stress Disorder: No Hx Psychosis: No Hx Physical Abuse: No Hx Schizophrenia: No Hx Sexual Abuse: No Hx Substance Use: No - SURGICAL HISTORY Hx Surgeries: Yes Hx Abdominal Aortic Aneurysm Repair: No Hx Amputation: No Hx Angiogram: No Hx Angioplasty: No Hx Appendectomy: No Hx Arteriovenous Shunt: No Hx Arthroscopy: No Hx Bile Duct Stent: No Hx Breast Biopsy: No Hx Cataract Extraction: No Hx Cardiac Catheterization: No Hx Carotid Endarterectomy: No Hx Section: No Hx Cholecystectomy: No Hx Coronary Artery Bypass Graft: No Hx Coronary Stent: No Hx Dilation and Curettage: No Hx Eye Surgery: Yes Hx Femoral-Popliteal Bypass Graft: No Hx Gastric Bypass Surgery: No Hx Herniorrhaphy: No Hx Hysterectomy: No Hx Joint Replacement: No Hx Kidney Transplant: No Hx Liver Transplant: No Hx Mastectomy: No Hx Musculoskeletal Surgery: No Hx Open Heart Surgery: No Hx Open Reduction Internal Fixation: No Hx Orthopedic Surgery: No Hx Parathyroidectomy: No Hx Penile Implant: No Hx Pulmonary Surgery: No Hx Splenectomy: No (spleenic embolization) Hx Thyroidectomy: No Hx Tonsillectomy: No Hx Tubal Ligation: No Hx Valve Replacement: No Hx Vascular Surgery: No Hx Vascular Access Device: No Other/Comment: embolization of spleen/ - ANESTHESIA Hx Anesthesia: Yes Hx Anesthesia Reactions: No Hx Malignant Hyperthermia: No Has any member of the family had a problem w/ anesthesia?: No Meds Allergies/Adverse Reactions: Allergies Allergy/AdvReac Type Severity Reaction Status Date / Time ciprofloxacin [From Cipro] AdvReac Verified 05/14/18 20:54 - Medications Medications: Current Medications Acetaminophen (Tylenol 325mg Tab) 650 mg PO Q6 PRN PRN Reason: Fever >100.4 F Last Admin: 05/16/18 06:38 Dose: 650 mg Albuterol/Ipratropium (Duoneb 3 Mg/0.5 Mg (3 Ml) Ud) 3 ml INH RQ6 [facility] Last Admin: 05/16/18 19:44 Dose: Not Given Enoxaparin Sodium (Lovenox) 30 mg SC DAILY [facility] Last Admin: 05/16/18 11:32 Dose: 30 mg Famotidine (Pepcid) 20 mg PO DAILY [facility] Last Admin: 05/16/18 11:31 Dose: 20 mg Hydroxyurea (Hydrea) 500 mg PO BID [facility] Last Admin: 05/15/18 10:00 Dose: 500 mg Ceftazidime/Avibactam 0.94 gm/ (Sodium Chloride) 100 mls @ 50 mls/hr IV Q12H [facility] Last Admin: 05/16/18 18:38 Dose: 50 mls/hr Physical Exam - Head Exam Head Exam: ATRAUMATIC - Eye Exam Eye Exam: Normal appearance - ENT Exam ENT Exam: Mucous Membranes Dry - Respiratory Exam Respiratory Exam: NORMAL BREATHING PATTERN - Cardiovascular Exam Cardiovascular Exam: +S1, +S2 - GI/Abdominal Exam GI & Abdominal Exam: Normal Bowel Sounds - Extremities Exam Extremities exam: Positive for: pedal edema - Neurological Exam Neurological exam: Oriented x3 - Psychiatric Exam Psychiatric exam: Normal Affect, Normal Mood - Skin Skin Exam: Warm Results - Vital Signs Recent Vital Signs: Last Vital Signs Temp 97.9 F 05/16/18 16:00 Pulse 103 H 05/16/18 18:00 Resp 22 05/16/18 18:00 BP 116/51 L 05/16/18 18:00 Pulse Ox 100 05/16/18 18:00 - Labs Result Diagrams: 05/16/18 07:16 05/16/18 07:16 Labs: Laboratory Results - last 24 hr 05/16/18 05/16/18 07:16 07:16 WBC 12.5 H RBC 3.35 L Hgb 9.8 L Hct 30.2 L MCV 90.1 MCH 29.2 MCHC 32.4 L RDW 19.3 H Plt Count 83 L MPV 12.7 H Neut % (Auto) 82.8 H Lymph % (Auto) 5.5 L [place] % (Auto) 9.2 Eos % (Auto) 0.0 Baso % (Auto) 2.5 H Neut # (Auto) 10.3 H Lymph # (Auto) 0.7 L [place] # (Auto) 1.1 H Eos # (Auto) 0.0 Baso # (Auto) 0.3 H Neutrophils % (Manual) 90 H Band Neutrophils % 1 Lymphocytes % (Manual) 7 L Monocytes % (Manual) 2 Nucleated RBC % 1 H Platelet Estimate Decreased L Large Platelets Present Polychromasia Slight Hypochromasia (manual) Slight Anisocytosis (manual) Slight Fatmata Cells Slight Sodium 133 Potassium 4.9 Chloride 103 Carbon Dioxide 17 L Anion Gap 18 BUN 96 H Creatinine 2.1 H Est GFR ( Amer) 28 Est GFR (Non-Af Amer) 23 Random Glucose 109 H Calcium 7.8 L Phosphorus 6.8 H Magnesium 1.8 Total Bilirubin 0.7 AST 9 L D ALT 31 Alkaline Phosphatase 101 Total Protein 5.2 L Albumin 2.4 L Globulin 2.8 Albumin/Globulin Ratio 0.9 L Assessment & Plan (1) Thrombocytopenia Assessment and Plan: secondary to myelofibrosis splenic sequestration from splenomegaly Status: Acute (2) Leucocytosis Assessment and Plan: improved with antibiotics element from myelofibrosis Status: Acute (3) Anemia Assessment and Plan: chronic disease, anemia of CKD splenic sequestration Status: Acute (4) DVT (deep venous thrombosis) Assessment and Plan: provoked from immobility and malignancy recent splenic hemorrhage s/p embolization on prophylactic anticoagulation Status: Acute (5) Myelofibrosis Assessment and Plan: restart Jakafi and Hydrea once infection clears Thank you for this interesting consult. Status: Acute
[2018-05-17] MEDS: Albuterol-Ipratrop 3 mg / 0.5 (3 ml) UD INH SCH ×4 (01:15→21:00)
[2018-05-17 06:23] LABS: BASO # 0.1 K/uL (0.0-0.2); EOS % 0.1 % (0.0-4.0); HEMOGLOBIN 8.4 g/dL (11.0-16.0); LYMPH # 0.8 K/uL (1.0-4.3); LYMPH % 6.2 % (20.0-40.0); MEAN CELL VOLUME 89.6 fL (81.0-99.0); MEAN CORPUSCULAR HEMOGLOBIN 29.1 pg (27.0-31.0); MEAN CORPUSCULAR HGB CONC 32.5 g/dL (33.0-37.0); MEAN PLATELET VOLUME 12.8 fL (7.2-11.7); MONO # 1.3 K/uL (0.0-0.8); MONO % 10.7 % (0.0-10.0); NEUT # 10.1 K/uL (1.8-7.0); NRBC % 9.2 % (0.0-2.0); PLATELET COUNT 72 K/uL (130-400); RBC 2.88 Mil/uL (3.80-5.20); RED CELL DISTRIBUTION WIDTH 18.9 % (11.5-14.5); WHITE BLOOD COUNT 12.4 K/uL (4.8-10.8)
[2018-05-17 06:39] LABS: ALB/GLOB RATIO 0.8 (1.0-2.1); ALBUMIN 2.2 g/dL (3.5-5.0); CALCIUM 7.7 mg/dl (8.6-10.4)
[2018-05-17 08:58] LABS: BANDS 3 % (0-2); EOSINOPHIL 1 % (0-4); LYMPHOCYTE 4 % (20-40); MONOCYTE 12 % (0-10); NEUTROPHIL 80 % (50-75); TOTAL CELLS COUNTED 100
[2018-05-17 08:59] LABS: PLATELET ESTIMATE DECREASED (NORMAL)
[2018-05-17 09:00] LABS: ANISOCYTOSIS SLIGHT; BURR CELLS SLIGHT; LARGE PLATELETS PRESENT; OVALOCYTES SLIGHT; POIKILOCYTOSIS SLIGHT; TEARDROP CELLS SLIGHT
[2018-05-17] MEDS: Enoxaparin 30 mg Syringe SC SCH (09:00)
--- NOTE | 2018-05-17 10:39 | CP.PCM.PN ---
Subjective - Date & Time of Evaluation Date of Evaluation: 05/17/18 Time of Evaluation: 10:00 - Subjective Subjective: clinically same Objective - Vital Signs/Intake and Output Vital Signs (last 24 hours): Temp Pulse Resp BP Pulse Ox 98.2 F 112 H 19 113/66 98 05/17/18 04:00 05/17/18 06:00 05/17/18 02:00 05/17/18 06:00 05/17/18 06:00 Intake and Output: 05/17/18 05/17/18 06:59 18:59 Intake Total 360 Output Total 500 Balance -140 - Medications Medications: Current Medications Acetaminophen (Tylenol 325mg Tab) 650 mg PO Q6 PRN PRN Reason: Fever >100.4 F Last Admin: 05/16/18 06:38 Dose: 650 mg Albuterol/Ipratropium (Duoneb 3 Mg/0.5 Mg (3 Ml) Ud) 3 ml INH RQ6 [facility] Last Admin: 05/17/18 06:55 Dose: 3 ml Enoxaparin Sodium (Lovenox) 30 mg SC DAILY [facility] Last Admin: 05/17/18 09:00 Dose: 30 mg Famotidine (Pepcid) 20 mg PO DAILY [facility] Last Admin: 05/17/18 09:00 Dose: 20 mg Hydroxyurea (Hydrea) 500 mg PO BID [facility] Last Admin: 05/15/18 10:00 Dose: 500 mg Ceftazidime/Avibactam 0.94 gm/ (Sodium Chloride) 100 mls @ 50 mls/hr IV Q12H [facility] Last Admin: 05/17/18 07:05 Dose: 50 mls/hr - Labs Labs: 05/17/18 06:17 05/17/18 06:17 - Constitutional Appears: Well - Head Exam Head Exam: ATRAUMATIC, NORMAL INSPECTION, NORMOCEPHALIC - Eye Exam Eye Exam: EOMI, Normal appearance, PERRL Pupil Exam: NORMAL ACCOMODATION, PERRL - ENT Exam ENT Exam: Mucous Membranes Moist, Normal Exam - Neck Exam Neck Exam: Full ROM, Normal Inspection. absent: Lymphadenopathy - Respiratory Exam Respiratory Exam: Decreased Breath Sounds - Cardiovascular Exam Cardiovascular Exam: REGULAR RHYTHM, +S1, +S2 - GI/Abdominal Exam GI & Abdominal Exam: Soft, Diminished Bowel Sounds - Rectal Exam Rectal Exam: Deferred Assessment and Plan (1) Abdominal pain Status: Acute (2) Anemia Status: Acute (3) Atrial fibrillation, new onset Status: Acute (4) CHF (congestive heart failure) Status: Acute (5) DVT (deep venous thrombosis) Status: Acute (6) Elevated brain natriuretic peptide (BNP) level Status: Acute (7) Hepatosplenomegaly Status: Acute (8) Hydronephrosis, right Status: Acute (9) Leucocytosis Status: Acute (10) Myelofibrosis Status: Acute (11) Portal vein thrombosis Status: Acute (12) Prophylactic measure Status: Acute (13) Pyelonephritis Status: Acute (14) Pyelonephritis due to Escherichia coli Status: Acute (15) Renal insufficiency Status: Acute (16) Spleen hematoma Status: Acute (17) Splenic hemorrhage Status: Acute (18) Thrombocytopenia Status: Acute (19) UTI (urinary tract infection) Status: Acute (20) Varices of other sites Status: Acute - Assessment and Plan (Free Text) Plan: Patient seen and examined at bedside Discussed with staff Overnight events noted Bun/creat high Low-sodium Low hemoglobin level Hydroxyurea Antibiotics DVT/GI prophylaxis Nebulizers Follow-up with labs
[2018-05-18] MEDS: Albuterol-Ipratrop 3 mg / 0.5 (3 ml) UD INH SCH ×4 (01:38→20:22)
[2018-05-18] MEDS: Enoxaparin 30 mg Syringe SC SCH (09:29)
--- NOTE | 2018-05-18 09:56 | CP.PCM.PN ---
Subjective - Date & Time of Evaluation Date of Evaluation: 05/18/18 Time of Evaluation: 09:56 Objective - Vital Signs/Intake and Output Vital Signs (last 24 hours): Temp Pulse Resp BP Pulse Ox 97.7 F 118 H 20 113/61 95 05/18/18 08:19 05/18/18 08:20 05/18/18 08:19 05/18/18 08:19 05/18/18 08:19 Intake and Output: 05/18/18 05/18/18 06:59 18:59 Intake Total 0 0 Balance 0 0 - Medications Medications: Current Medications Acetaminophen (Tylenol 325mg Tab) 650 mg PO Q6 PRN PRN Reason: Fever >100.4 F Last Admin: 05/16/18 06:38 Dose: 650 mg Albuterol/Ipratropium (Duoneb 3 Mg/0.5 Mg (3 Ml) Ud) 3 ml INH RQ6 [facility] Last Admin: 05/18/18 08:51 Dose: Not Given Enoxaparin Sodium (Lovenox) 30 mg SC DAILY [facility] Last Admin: 05/18/18 09:29 Dose: 30 mg Famotidine (Pepcid) 20 mg PO DAILY [facility] Last Admin: 05/18/18 09:29 Dose: 20 mg Hydroxyurea (Hydrea) 500 mg PO BID [facility] Last Admin: 05/15/18 10:00 Dose: 500 mg Ceftazidime/Avibactam 0.94 gm/ (Sodium Chloride) 100 mls @ 50 mls/hr IV Q12H [facility] Last Admin: 05/18/18 06:24 Dose: 50 mls/hr - Labs Labs: 05/17/18 06:17 05/17/18 06:17
[2018-05-19] MEDS: Albuterol-Ipratrop 3 mg / 0.5 (3 ml) UD INH SCH ×3 (01:48→19:12)
[2018-05-19] MEDS: Enoxaparin 30 mg Syringe SC SCH (09:10)
--- NOTE | 2018-05-19 09:32 | CP.PCM.PN ---
Subjective - Date & Time of Evaluation Date of Evaluation: 05/19/18 Time of Evaluation: 09:31 - Subjective Subjective: INFECTIOUS DISEASE PROGRESS NOTES JANY PATTERSON MD, FACAP 05/19/2018 CHART REVIEWED PT EXAMINED CASE DISCUSSED 67 year old female with a history of myelofibrosis on Jakafi and Hydrea, recurrent urinary tract infections s/p recent ureteral stent, recently discharge after prolonged hospitalziation for paroxysmal afib, splenic hemorrhage s/p splenic artery embolization, LE DVT, admitted with urosepsis. The patient had fatigue and fevers and was brought to the hospital. Cultures revealed urine infection with gram negative bacteremia. Her Jakafi and Hydrea have been held. She did have a Past medical history: Myelofibrosis, recurrent UTI Past surgical history: Denies Family history: Denies hematologic and oncologic problems Social history: Denies tobacco, alcohol, and illicit drug use Allergies: NKA Objective - Vital Signs/Intake and Output Vital Signs (last 24 hours): Temp Pulse Resp BP Pulse Ox 98.3 F 120 H 25 H 93/54 L 97 05/18/18 12:32 05/19/18 01:00 05/18/18 12:32 05/18/18 12:32 05/18/18 12:32 Intake and Output: 05/19/18 05/19/18 06:59 18:59 Intake Total 0 400 Output Total 400 Balance 0 0 - Medications Medications: Current Medications Acetaminophen (Tylenol 325mg Tab) 650 mg PO Q6 PRN PRN Reason: Fever >100.4 F Last Admin: 05/18/18 18:43 Dose: 650 mg Albuterol/Ipratropium (Duoneb 3 Mg/0.5 Mg (3 Ml) Ud) 3 ml INH RQ6 [facility] Last Admin: 05/19/18 06:55 Dose: Not Given Enoxaparin Sodium (Lovenox) 30 mg SC DAILY [facility] Last Admin: 05/19/18 09:10 Dose: 30 mg Famotidine (Pepcid) 20 mg PO DAILY [facility] Last Admin: 05/19/18 09:10 Dose: 20 mg Hydroxyurea (Hydrea) 500 mg PO BID [facility] Last Admin: 05/15/18 10:00 Dose: 500 mg Ceftazidime/Avibactam 0.94 gm/ (Sodium Chloride) 100 mls @ 50 mls/hr IV Q12H [facility] Last Admin: 05/19/18 07:02 Dose: 50 mls/hr - Labs Labs: 05/17/18 06:17 05/17/18 06:17
--- NOTE | 2018-05-19 12:31 | CP.CCUPN ---
Addendum entered and electronically signed by Haley Meza DO 05/20/18 12:03: Patient awaiting transfer to telemetry. Original Note: CCU Subjective - Physician Review Subjective (Free Text): Resident Critical Care Progress Note Patient examined at bedside. She is resting comfortably and states that she feels better. She admits to abdominal pain which is unchanged from prior. Denies fever, chills, headache, dizziness, chest pain, shortness of breath. Critical Care Time Spent (in minutes): 35 CCU Objective - Vital Signs / Intake & Output Intake and Output (Last 8hrs): Intake & Output 05/18/18 05/19/18 05/19/18 22:59 06:59 14:59 Intake Total 650 0 400 Output Total 400 400 Balance 250 0 0 Intake: Intake, IV Amount 100 0 100 Left Wrist 100 0 100 Oral 550 300 Output: Urine 400 400 Urine, Voided 400 400 Other: # Bowel Movements 1 0 - Physical Exam Head: Positive for: Atraumatic, Normocephalic Pupils: Positive for: PERRL Extroacular Muscles: Positive for: EOMI Conjunctiva: Positive for: Normal Ears: Positive for: Normal Mouth: Positive for: Moist Mucous Membranes Nose (External): Positive for: Atraumatic Neck: Positive for: Normal Range of Motion Respiratory/Chest: Positive for: Good Air Exchange, Rhonchi. Negative for: Respiratory Distress Cardiovascular: Positive for: Regular Rate and Rhythm, Normal S1, S2 Abdomen: Positive for: Tenderness (mild tenderness in LUQ). Negative for: Distention, Peritoneal Signs, Rebound Upper Extremity: Positive for: Normal Inspection. Negative for: Cyanosis, Edema Lower Extremity: Positive for: Normal Inspection. Negative for: Edema, CALF TENDERNESS Neurological: Positive for: GCS=15, CN II-XII Intact, Speech Normal Skin: Positive for: Warm, Dry, Normal Color Psychiatric: Positive for: Alert, Oriented x 3 - Medications Active Medications: Active Medications Generic Name Dose Route Start Last Admin Trade Name Freq PRN Reason Stop Dose Admin Acetaminophen 650 mg 05/15/18 08:56 05/19/18 12:24 Tylenol 325mg Tab PO 650 mg Q6 PRN Administration Fever >100.4 F Albuterol/Ipratropium 3 ml 05/15/18 12:00 05/19/18 06:55 Duoneb 3 Mg/0.5 Mg (3 Ml) Ud INH Not Given RQ6 NAN Enoxaparin Sodium 30 mg 05/15/18 10:00 05/19/18 09:10 Lovenox SC 30 mg DAILY NAN Administration Famotidine 20 mg 05/15/18 10:00 05/19/18 09:10 Pepcid PO 20 mg DAILY NAN Administration Hydroxyurea 500 mg 05/15/18 10:00 05/15/18 10:00 Hydrea PO 500 mg BID NAN Administration Ceftazidime/Avibactam 0.94 gm/ 100 mls @ 50 mls/hr 05/15/18 19:00 05/19/18 07:02 Sodium Chloride IV 50 mls/hr Q12H NAN Administration - Patient Studies Lab Studies: Microbiology Studies 05/17/18 11:50 Blood Culture - Preliminary Blood NO GROWTH AFTER 48 HOURS 05/17/18 11:50 Blood Culture - Preliminary Blood NO GROWTH AFTER 48 HOURS 05/14/18 21:00 Blood Culture - Preliminary Blood NO GROWTH AFTER 4 DAYS Review of Systems - Review of Systems All systems: reviewed and no additional remarkable complaints except (as stated in HPI) Critical Care Progress Note - Extremities/Vascular Does the Patient have a Central Venous Catheter?: No Does the Patient need a Central Venous Catheter?: No - Prophylaxis GI Prophylaxis GI: Pepsid - Prophylaxis DVT Prophylaxis DVT: Lovenox - Nutrition Nutrition: Nutrition Category Date Time Status Heart Healthy Diet [DIET] Diets 05/15/18 Breakfast Active Assessment/Plan - Assessment and Plan (Free Text) Plan: 67 year old female with a PMHx of myelofibrosis, HTN, renal insufficiency admitted with fever and UTI. Urine culture from 05/11/18 grew Enterococcus faecalis and Klebsiella pneumoniae. Neuro: - AAO x3 Pulm: - Nasal cannula as tolerated - Maintain SPO2 > 92% - Duonebs 3 ml INH RQ6 CV: - Currently hemodynamically stable - Eliquis held 2/ acute hemorrhagic process emanating from the spleen - ECHO from previous admission showed normal left ventricle systolic function. EF 65-70%. Moderate pulmonary HTN. - Dopplers showed acute thrombosis of right gastrocnemius vein with severe reduction of venous return. GI: - Pepcid 20mg PO daily - 05/06 CT abdomen showed acute hemorrhagic process emanating from the spleen - s/p IR splenic artery embolization Renal: - SOFIA - Monitor I and O - Replete electrolytes as needed - Urology Dr Flor Irvin consulted. Appreciate recs. ID: - 05/17 BCx show NG after 24 hours - Tygacil 100 mg given - ID Dr. Jackson consulted. Recs appreciated. - Avycaz 0.94 g IV q12h (started 05/15) Heme/Onc - Hx of myelofibrosis with chronic leukocytosis - Dr. Mcbride consulted. Recs appreciated. - Arina Bragg Endo: - Maintain euglycemia PPX: Pepcid 20 mg PO daily, Lovenox 30 mg SC daily Case and plan was reviewed and discussed with Dr. Baljinder Meza PGY-1 - Date & Time Date: 05/19/18 Time: 07:00
--- NOTE | 2018-05-19 19:47 | CP.PCM.PN ---
Subjective - Date & Time of Evaluation Date of Evaluation: 05/19/18 Time of Evaluation: 19:47 Objective - Vital Signs/Intake and Output Vital Signs (last 24 hours): Temp Pulse Resp BP Pulse Ox 98.2 F 117 H 24 95/59 L 97 05/19/18 12:00 05/19/18 12:00 05/19/18 12:00 05/19/18 12:00 05/19/18 12:00 Intake and Output: 05/19/18 05/20/18 18:59 06:59 Intake Total 900 Output Total 1300 Balance -400 - Medications Medications: Current Medications Acetaminophen (Tylenol 325mg Tab) 650 mg PO Q6 PRN PRN Reason: Fever >100.4 F Last Admin: 05/19/18 19:00 Dose: 650 mg Albuterol/Ipratropium (Duoneb 3 Mg/0.5 Mg (3 Ml) Ud) 3 ml INH RQ6 [facility] Last Admin: 05/19/18 06:55 Dose: Not Given Enoxaparin Sodium (Lovenox) 30 mg SC DAILY [facility] Last Admin: 05/19/18 09:10 Dose: 30 mg Famotidine (Pepcid) 20 mg PO DAILY [facility] Last Admin: 05/19/18 09:10 Dose: 20 mg Hydroxyurea (Hydrea) 500 mg PO BID [facility] Last Admin: 05/15/18 10:00 Dose: 500 mg Ceftazidime/Avibactam 0.94 gm/ (Sodium Chloride) 100 mls @ 50 mls/hr IV Q12H [facility] Last Admin: 05/19/18 19:00 Dose: 50 mls/hr - Labs Labs: 05/17/18 06:17 05/17/18 06:17
[2018-05-19 20:32] LABS: BASO # 0.2 K/uL (0.0-0.2); BASO % 1.3 % (0.0-2.0); EOS # 0.1 K/uL (0.0-0.7); EOS % 0.7 % (0.0-4.0); HEMOGLOBIN 8.4 g/dL (11.0-16.0); LYMPH # 0.3 K/uL (1.0-4.3); LYMPH % 1.9 % (20.0-40.0); MEAN CORPUSCULAR HEMOGLOBIN 28.7 pg (27.0-31.0); MEAN CORPUSCULAR HGB CONC 31.9 g/dL (33.0-37.0); MEAN PLATELET VOLUME 12.6 fL (7.2-11.7); MONO # 1.1 K/uL (0.0-0.8); NEUT # 14.5 K/uL (1.8-7.0); NEUT % 89.1 % (50.0-75.0); NRBC % 7.8 % (0.0-2.0); PLATELET COUNT 67 K/uL (130-400); RBC 2.94 Mil/uL (3.80-5.20); RED CELL DISTRIBUTION WIDTH 19.6 % (11.5-14.5); WHITE BLOOD COUNT 16.3 K/uL (4.8-10.8)
[2018-05-19 20:48] LABS: ALB/GLOB RATIO 0.8 (1.0-2.1); ALBUMIN 2.3 g/dL (3.5-5.0)
[2018-05-19 21:18] LABS: BANDS 2 % (0-2); BASOPHIL 1 % (0-2); EOSINOPHIL 1 % (0-4); LYMPHOCYTE 2 % (20-40); MONOCYTE 18 % (0-10); NEUTROPHIL 75 % (50-75); NUCLEATED RED BLOOD CELL 16 % (0-0); PLATELET ESTIMATE DECREASED (NORMAL); REACTIVE LYMPHOCYTES 1 % (0-0); TOTAL CELLS COUNTED 100
[2018-05-19 21:19] LABS: ANISOCYTOSIS MODERATE; GIANT PLATELETS PRESENT; LARGE PLATELETS PRESENT; OVALOCYTES SLIGHT; POLYCHROMIC SLIGHT; TEARDROP CELLS SLIGHT
[2018-05-19 21:20] LABS: MICROCYTOSIS SLIGHT; SCHISTOCYTES SLIGHT
[2018-05-20] MEDS: Albuterol-Ipratrop 3 mg / 0.5 (3 ml) UD INH SCH ×4 (01:03→19:02)
[2018-05-20 06:34] LABS: BASO # 0.1 K/uL (0.0-0.2); BASO % 0.3 % (0.0-2.0); EOS # 0.1 K/uL (0.0-0.7); EOS % 0.4 % (0.0-4.0); HEMOGLOBIN 8.6 g/dL (11.0-16.0); LYMPH # 0.5 K/uL (1.0-4.3); LYMPH % 3.3 % (20.0-40.0); MEAN CELL VOLUME 90.3 fL (81.0-99.0); MEAN CORPUSCULAR HEMOGLOBIN 28.9 pg (27.0-31.0); MEAN PLATELET VOLUME 13.1 fL (7.2-11.7); MONO # 1.2 K/uL (0.0-0.8); MONO % 7.5 % (0.0-10.0); NEUT # 14.2 K/uL (1.8-7.0); NEUT % 88.5 % (50.0-75.0); NRBC % 7.1 % (0.0-2.0); PLATELET COUNT 65 K/uL (130-400); RBC 2.96 Mil/uL (3.80-5.20); RED CELL DISTRIBUTION WIDTH 19.9 % (11.5-14.5); WHITE BLOOD COUNT 16.1 K/uL (4.8-10.8)
[2018-05-20 06:35] LABS: ALB/GLOB RATIO 0.8 (1.0-2.1); ALBUMIN 2.4 g/dL (3.5-5.0); CALCIUM 8.3 mg/dl (8.6-10.4)
[2018-05-20 08:17] LABS: ANISOCYTOSIS SLIGHT; BANDS 9 % (0-2); HYPOCHROMIC SLIGHT; LYMPHOCYTE 4 % (20-40); MONOCYTE 9 % (0-10); NEUTROPHIL 78 % (50-75); NUCLEATED RED BLOOD CELL 9 % (0-0); PLATELET ESTIMATE DECREASED (NORMAL); POIKILOCYTOSIS SLIGHT; TOTAL CELLS COUNTED 100
[2018-05-20 08:18] LABS: BURR CELLS SLIGHT; LARGE PLATELETS PRESENT; MICROCYTOSIS SLIGHT; OVALOCYTES SLIGHT; TARGET CELLS SLIGHT
[2018-05-20] MEDS: Enoxaparin 30 mg Syringe SC SCH (10:58)
--- NOTE | 2018-05-20 16:07 | CP.PCM.PN ---
Subjective - Date & Time of Evaluation Date of Evaluation: 05/20/18 Time of Evaluation: 11:15 - Subjective Subjective: clinically same Objective - Vital Signs/Intake and Output Vital Signs (last 24 hours): Temp Pulse Resp BP Pulse Ox 97.8 F 126 H 29 H 95/55 L 100 05/20/18 12:00 05/20/18 15:13 05/20/18 15:13 05/20/18 15:13 05/20/18 15:13 Intake and Output: 05/20/18 05/20/18 06:59 18:59 Intake Total 920 Output Total 800 Balance 120 - Medications Medications: Current Medications Acetaminophen (Tylenol 325mg Tab) 650 mg PO Q6 PRN PRN Reason: Fever >100.4 F Last Admin: 05/19/18 19:00 Dose: 650 mg Albuterol/Ipratropium (Duoneb 3 Mg/0.5 Mg (3 Ml) Ud) 3 ml INH RQ6 [facility] Last Admin: 05/20/18 14:48 Dose: 3 ml Enoxaparin Sodium (Lovenox) 30 mg SC DAILY [facility] Last Admin: 05/20/18 10:58 Dose: 30 mg Famotidine (Pepcid) 20 mg PO DAILY [facility] Last Admin: 05/20/18 10:59 Dose: 20 mg Hydroxyurea (Hydrea) 500 mg PO BID [facility] Last Admin: 05/15/18 10:00 Dose: 500 mg Ceftazidime/Avibactam 0.94 gm/ (Sodium Chloride) 100 mls @ 50 mls/hr IV Q12H [facility] Last Admin: 05/20/18 06:00 Dose: 50 mls/hr - Labs Labs: 05/20/18 06:11 05/20/18 06:11 - Constitutional Appears: Well - Head Exam Head Exam: ATRAUMATIC, NORMAL INSPECTION, NORMOCEPHALIC - Eye Exam Eye Exam: EOMI, Normal appearance, PERRL Pupil Exam: NORMAL ACCOMODATION, PERRL - ENT Exam ENT Exam: Mucous Membranes Moist, Normal Exam - Neck Exam Neck Exam: Full ROM, Normal Inspection. absent: Lymphadenopathy - Respiratory Exam Respiratory Exam: Decreased Breath Sounds - Cardiovascular Exam Cardiovascular Exam: REGULAR RHYTHM, +S1, +S2 - GI/Abdominal Exam GI & Abdominal Exam: Soft, Diminished Bowel Sounds - Rectal Exam Rectal Exam: Deferred Assessment and Plan (1) Abdominal pain Status: Acute (2) Anemia Status: Acute (3) Atrial fibrillation, new onset Status: Acute (4) CHF (congestive heart failure) Status: Acute (5) DVT (deep venous thrombosis) Status: Acute (6) Elevated brain natriuretic peptide (BNP) level Status: Acute (7) Hepatosplenomegaly Status: Acute (8) Hydronephrosis, right Status: Acute (9) Leucocytosis Status: Acute (10) Myelofibrosis Status: Acute (11) Portal vein thrombosis Status: Acute (12) Prophylactic measure Status: Acute (13) Pyelonephritis Status: Acute (14) Pyelonephritis due to Escherichia coli Status: Acute (15) Renal insufficiency Status: Acute (16) Spleen hematoma Status: Acute (17) Splenic hemorrhage Status: Acute (18) Thrombocytopenia Status: Acute (19) UTI (urinary tract infection) Status: Acute (20) Varices of other sites Status: Acute - Assessment and Plan (Free Text) Plan: Patient seen and examined with son Discussed. Labs reviewed Increased WBC Discussed with son at bedside No flow on board IV albumin Monitor input and output
[2018-05-20] MEDS ORDERED: HYDROmorphone 1 mg/ml ISec IVP STA ×2 (16:31→20:24)
--- NOTE | 2018-05-20 17:09 | CP.PCM.CON ---
History of Present Illness - History of Present Illness History of Present Illness: Nephrology Consultation Note: Assessment: critical Acute Kidney Injury (N17.9) likely due to ATN/sepsis with UTI, low BP Metabolic acidosis, Hyponatremia Hypertensive Chronic Kidney Disease (I12.9) Chronic Kidney Disease (N18.3) Stage 3 with ? mg proteinuria myelofibrosis with hepatosplenomegaly and extensive varices, anemia/thrombo cytopenia atrial fibrillation, right lower extremity DVT on anticoagulant developed Splenic hemorrhage s/p splenic artery embolization right hydronephrosis/pyelonephritis and Ureteral stricture s/p stent Plan No acute need for renal replacement therapy at this time. Hypertension control with meds as ordered. Maintain hemodynamics stable. Avoid hypotension. Patient not on ACEI/ARB due to recent SOFIA Monitor Input/Output, daily weights and renal function with basic metabolic panel add sodium bicarb 1300 mg bid IV albumin 100 gram asked RN for guzmán and check bladder pressure CT abdomen as ordered anemia management as per heme Check urine analysis, spot protein/creatinine, albumin/creatinine ratio, urine Na/K/Cl, Osmol, serum Osmol Check CPK, uric acid Check GN work up as C3, C4, ANCA (MPO and ID-3), HIV serology Check for 25-OH vitamin D, iPTH, phosphorus level. Dose meds/antibiotics for reduced GFR. Avoid fleets enema/magnesium based laxatives. Avoid nephrotoxins/NSAIDs/ iodinated contrast (unless needed emergently) Glycemic control Further work up/management as per primary team Thanks for allowing me to participate in care of your patient. Will follow patient with you. Please call if any Qs. d/w family bedside Dr Espinoza Wylie Office: [phone] Chief Complaint; pain abdomen Reason for consult: Acute Kidney Injury HPI: Pt is a 67 F with hx of HTN,myelofibrosis admitted recently in april with right flank pain, right hydronephrosis/pyelonephritis and Ureteral stricture s/p stent, hospital course was complicated by atrial fibrillation, right lower extremity DVT on anticoagulant developed Splenic hemorrhage s/p splenic artery embolization, hence systemic a/c was stopped. pt also with hepatosplenomegaly and extensive varices, anemia/thrombocytopenia admitted with sepsis with kelbsiella due to UTI pt also with CKD stage 3 with baseline cr 1.8-2.0 since hospitalization with AKIs Denies OTC/herbal meds or NSAIDs No recent iodinated contrast exposure. Noted obvious episodes of low BP. son bedside and helped in interpretations pt not good historian. c/o left abdomen pain (severe) ROS: Cardiovascular: No chest pain. Pulmonary: No shortness of breath Gastrointestinal: c/o abdominal pain No nausea. No vomiting. Genitourinary: no pain while urinating. Denies blood in urine. All other negative except as mentioned in HPI. limited ROS. pt with poor oral intake Physical Examination: General Appearance: uncomfortable, in no acute respiratory distress, co- operative . Vitals reviewed and noted as below Head; Atraumatic, normocephalic ENT: no ulcers no thrush. Tongue is midline. Oropharynx: no rash or ulcers. EYES: Pupils are equal, round and reactive to light accommodation. Eye muscles and extraocular movement intact. Sclera is anicteric. Neck; supple no lymphadenopathy, no thyromegaly or bruit Lungs: Normal respiratory rate/effort. Breath sounds bilateral equal and clear Heart: Incresaed rate. s1s2 normal. No rub or gallop. Extremities: no edema. No varicose veins Neurological: Patient is alert, awake and oriented to person, place and time. No focal deficit. Strength bilateral appropriate and equal Skin: Warm and dry. Normal turgor. No rash. Palpitation: Normal elasticity for age Abdomen: Abdomen is soft. Bowel sounds +. There is marked LUQ abdominal tenderness with guarding no rigidity no organomegaly Psych: limited insight and normal affect/mood MSK: no joint tenderness or swelling. Digits and nails normal, no deformity : kidney or bladder not palpable Labs/imaging reviewed. Past medical history, past surgical history, family history, social history, allergy reviewed and noted as below Family hx: no hx of CKD. Rest non-contributory echo moderate pHTN, normal LVEF UA 2+ protein 3+ blood TRACEY and Hep B/C neg Past Patient History - Infectious Disease Hx of Infectious Diseases: None - Past Medical History & Family History Past Medical History?: Yes - Past Social History Smoking Status: Never Smoked - CARDIAC Hx Cardiac Disorders: Yes Hx Congestive Heart Failure: Yes (Diastolic heart failure) Hx Hypercholesterolemia: No Hx Hypertension: Yes - PULMONARY Hx Chronic Obstructive Pulmonary Disease (COPD): No - NEUROLOGICAL HX Cerebrovascular Accident: No - HEENT Hx HEENT Problems: Yes Hx Blind: No Hx Cataracts: Yes Hx Deafness: No Hx Difficulty Chewing: No Hx Epistaxis: No Hx Glaucoma: Yes Hx Macular Degeneration: No Hx Sinusitis: No Other/Comment: Hx of eye surgery for repair - RENAL Hx Renal Failure: Yes - ENDOCRINE/METABOLIC Hx Diabetes Mellitus Type 1: No Hx Diabetes Mellitus Type 2: No Hx Hypothyroidism: No - HEMATOLOGICAL/ONCOLOGICAL Hx Blood Disorders: Yes Hx AIDS: No Hx Anemia: Yes Hx Blood Transfusions: Yes Hx Blood Transfusion Reaction: No Hx Bruising: No Hx Cancer: No Hx Chemotherapy: No Hx Cirrhosis: No Hx Gum Bleeding: No Hx Hemophilia: No Hx Hepatitis A: No Hx Hepatitis B: No Hx Hepatitis C: No Hx Human Immunodeficiency Virus (HIV): No Hx Leukemia: No Hx Metastesis: No Hx Shingles: No Hx Sickle Cell Disease: No Hx Unexplained Bleeding: No Hx von Willebrand's Disease: No Other/Comment: Myelofibrosis, Myelodysplasia - INTEGUMENTARY Hx Dermatological Problems: No Hx Basil Cell: No Hx Bryant: No Hx Cellulitis: No Hx Eczema: No Hx Melanoma: No Hx Psoriasis: No Hx Squamous Cell: No - MUSCULOSKELETAL/RHEUMATOLOGICAL Hx Arthritis: Yes Hx Rheumatoid Arthritis: No - GASTROINTESTINAL Hx Gastrointestinal Disorders: No Hx Bowel Surgery: No Hx Clostridium Difficile: No Hx Colitis: No Hx Colostomy: No Hx Constipation: No Hx Crohn's Disease: No Hx Diarrhea: No Hx Diverticulitis: No Hx Esophageal Varices: No Hx Fatty Liver Disease: No Hx Gall Bladder Disease: No Hx Gastritis: No Hx Gastroesophageal Reflux: No Hx Hemorrhoids: No Hx Ileostomy: No Hx Irritable Bowel: No Hx Liver Failure: No Hx Nausea: No Hx Pancreatitis: No HX Swallowing Problems: No Hx Ulcer: No Hx Vomiting: No Other/Comment: Hx of hepatospleenomegaly and spleenic embolization - GENITOURINARY/GYNECOLOGICAL Hx Genitourinary Disorders: Yes Hx Bladder Cancer: No Hx Bladder Stone: Yes Hx Cervical Cancer: No Hx Hematuria: No Hx Incontinence: No Hx Ovarian Cancer: No Hx Postmenopausal Bleeding: No Hx Reproductive Disorders: No Hx Sexually Transmitted Disorders: No Hx Uterine Cancer: No Hx Urinary Tract Infection: Yes Other/Comment: urethral strictor, - PSYCHIATRIC Hx Psychophysiologic Disorder: No Hx Anxiety: No Hx Bipolar Disorder: No Hx Depression: No Hx Emotional Abuse: No Hx Hallucinations: No Hx Panic Symptoms: No Hx Paranoia: No Hx Post Traumatic Stress Disorder: No Hx Psychosis: No Hx Physical Abuse: No Hx Schizophrenia: No Hx Sexual Abuse: No Hx Substance Use: No - SURGICAL HISTORY Hx Surgeries: Yes Hx Abdominal Aortic Aneurysm Repair: No Hx Amputation: No Hx Angiogram: No Hx Angioplasty: No Hx Appendectomy: No Hx Arteriovenous Shunt: No Hx Arthroscopy: No Hx Bile Duct Stent: No Hx Breast Biopsy: No Hx Cataract Extraction: No Hx Cardiac Catheterization: No Hx Carotid Endarterectomy: No Hx Section: No Hx Cholecystectomy: No Hx Coronary Artery Bypass Graft: No Hx Coronary Stent: No Hx Dilation and Curettage: No Hx Eye Surgery: Yes Hx Femoral-Popliteal Bypass Graft: No Hx Gastric Bypass Surgery: No Hx Herniorrhaphy: No Hx Hysterectomy: No Hx Joint Replacement: No Hx Kidney Transplant: No Hx Liver Transplant: No Hx Mastectomy: No Hx Musculoskeletal Surgery: No Hx Open Heart Surgery: No Hx Open Reduction Internal Fixation: No Hx Orthopedic Surgery: No Hx Parathyroidectomy: No Hx Penile Implant: No Hx Pulmonary Surgery: No Hx Splenectomy: No (spleenic embolization) Hx Thyroidectomy: No Hx Tonsillectomy: No Hx Tubal Ligation: No Hx Valve Replacement: No Hx Vascular Surgery: No Hx Vascular Access Device: No Other/Comment: embolization of spleen/ - ANESTHESIA Hx Anesthesia: Yes Hx Anesthesia Reactions: No Hx Malignant Hyperthermia: No Has any member of the family had a problem w/ anesthesia?: No Meds Allergies/Adverse Reactions: Allergies Allergy/AdvReac Type Severity Reaction Status Date / Time ciprofloxacin [From Cipro] AdvReac Verified 05/14/18 20:54 - Medications Medications: Current Medications Acetaminophen (Tylenol 325mg Tab) 650 mg PO Q6 PRN PRN Reason: Fever >100.4 F Last Admin: 05/19/18 19:00 Dose: 650 mg Albuterol/Ipratropium (Duoneb 3 Mg/0.5 Mg (3 Ml) Ud) 3 ml INH RQ6 [facility] Last Admin: 05/20/18 14:48 Dose: 3 ml Enoxaparin Sodium (Lovenox) 30 mg SC DAILY [facility] Last Admin: 05/20/18 10:58 Dose: 30 mg Famotidine (Pepcid) 20 mg PO DAILY [facility] Last Admin: 05/20/18 10:59 Dose: 20 mg Hydroxyurea (Hydrea) 500 mg PO BID [facility] Last Admin: 05/15/18 10:00 Dose: 500 mg Ceftazidime/Avibactam 0.94 gm/ (Sodium Chloride) 100 mls @ 50 mls/hr IV Q12H [facility] Last Admin: 05/20/18 06:00 Dose: 50 mls/hr Results - Vital Signs Recent Vital Signs: Last Vital Signs Temp 97.8 F 05/20/18 12:00 Pulse 126 H 05/20/18 15:13 Resp 29 H 05/20/18 15:13 BP 95/55 L 05/20/18 15:13 Pulse Ox 100 05/20/18 15:13 - Labs Result Diagrams: 05/20/18 06:11 05/20/18 06:11 Labs: Laboratory Results - last 24 hr 05/19/18 05/19/18 05/20/18 20:29 20:29 06:11 WBC 16.3 H 16.1 H RBC 2.94 L 2.96 L Hgb 8.4 L 8.6 L Hct 26.4 L 26.7 L MCV 90.0 90.3 MCH 28.7 28.9 MCHC 31.9 L 32.0 L RDW 19.6 H 19.9 H Plt Count 67 L 65 L MPV 12.6 H 13.1 H Neut % (Auto) 89.1 H 88.5 H Lymph % (Auto) 1.9 L 3.3 L [place] % (Auto) 7.0 7.5 Eos % (Auto) 0.7 0.4 Baso % (Auto) 1.3 0.3 Neut # (Auto) 14.5 H 14.2 H Lymph # (Auto) 0.3 L 0.5 L [place] # (Auto) 1.1 H 1.2 H Eos # (Auto) 0.1 0.1 Baso # (Auto) 0.2 0.1 Neutrophils % (Manual) 75 78 H Band Neutrophils % 2 9 H Lymphocytes % (Manual) 2 L 4 L Reactive Lymphs % 1 H Monocytes % (Manual) 18 H 9 Eosinophils % (Manual) 1 Basophils % (Manual) 1 Nucleated RBC % 16 H 9 H Platelet Estimate Decreased L Decreased L Large Platelets Present Present Giant Platelets Present Polychromasia Slight Hypochromasia (manual) Slight Poikilocytosis (manual Slight Anisocytosis (manual) Moderate Slight Microcytosis (manual) Slight Slight Macrocytosis (manual) Moderate Slight Target Cells Slight Tear Drop Cells Slight Ovalocytes Slight Slight Fatmata Cells Slight Schistocytes Slight Sodium 132 Potassium 4.4 Chloride 106 Carbon Dioxide 15 L Anion Gap 16 BUN 95 H Creatinine 2.4 H Est GFR ( Amer) 24 Est GFR (Non-Af Amer) 20 Random Glucose 143 H Calcium 8.0 L Phosphorus Magnesium Total Bilirubin 0.7 AST 21 ALT 44 Alkaline Phosphatase 113 Total Protein 5.0 L Albumin 2.3 L Globulin 2.7 Albumin/Globulin Ratio 0.8 L 05/20/18 06:11 WBC RBC Hgb Hct MCV MCH MCHC RDW Plt Count MPV Neut % (Auto) Lymph % (Auto) [place] % (Auto) Eos % (Auto) Baso % (Auto) Neut # (Auto) Lymph # (Auto) [place] # (Auto) Eos # (Auto) Baso # (Auto) Neutrophils % (Manual) Band Neutrophils % Lymphocytes % (Manual) Reactive Lymphs % Monocytes % (Manual) Eosinophils % (Manual) Basophils % (Manual) Nucleated RBC % Platelet Estimate Large Platelets Giant Platelets Polychromasia Hypochromasia (manual) Poikilocytosis (manual Anisocytosis (manual) Microcytosis (manual) Macrocytosis (manual) Target Cells Tear Drop Cells Ovalocytes Fatmata Cells Schistocytes Sodium 132 Potassium 4.7 Chloride 106 Carbon Dioxide 14 L Anion Gap 17 BUN 97 H Creatinine 2.5 H Est GFR ( Amer) 23 Est GFR (Non-Af Amer) 19 Random Glucose 102 Calcium 8.3 L Phosphorus 5.2 H Magnesium 2.3 Total Bilirubin 0.8 AST 20 ALT 43 Alkaline Phosphatase 120 Total Protein 5.2 L Albumin 2.4 L Globulin 2.8 Albumin/Globulin Ratio 0.8 L
[2018-05-20] MEDS: Albumin Human 25% (12.5 gm/50 ml) IV SCH (17:46)
[2018-05-20] MEDS ORDERED: Iohexol 240 (50 ml) PO ONE (19:30)
--- NOTE | 2018-05-20 20:06 | CP.PCM.PN ---
Subjective - Date & Time of Evaluation Date of Evaluation: 05/20/18 Time of Evaluation: 20:04 - Subjective Subjective: INFECTIOUS DISEASE PROGRESS NOTES JANY PATTERSON MD, FACP 05/20/2018 CHART REVIEWED PT EXAMINED CASE DISCUSSED PLEAE CALL ME FOR ANY ANTIBIOTIC ISSUES DIRECTLY Chief Complaint; pain abdomen Reason for consult: Acute Kidney Injury HPI: Pt is a 67 F with hx of HTN,myelofibrosis admitted recently in april with right flank pain, right hydronephrosis/pyelonephritis and Ureteral stricture s/p stent, hospital course was complicated by atrial fibrillation, right lower extremity DVT on anticoagulant developed Splenic hemorrhage s/p splenic artery embolization, hence systemic a/c was stopped. pt also with hepatosplenomegaly and extensive varices, anemia/thrombocytopenia admitted with sepsis with kelbsiella due to UTI pt also with CKD stage 3 with baseline cr 1.8-2.0 since hospitalization with AKIs Denies OTC/herbal meds or NSAIDs No recent iodinated contrast exposure. Noted obvious episodes of low BP. son bedside and helped in interpretations pt not good historian. c/o left abdomen pain (severe) ROS: Cardiovascular: No chest pain. Pulmonary: No shortness of breath Gastrointestinal: c/o abdominal pain No nausea. No vomiting. Genitourinary: no pain while urinating. Denies blood in urine. All other negative except as mentioned in HPI. limited ROS. pt with poor oral intake Physical Examination: General Appearance: uncomfortable, in no acute respiratory distress, co- operative . Vitals reviewed and noted as below Head; Atraumatic, normocephalic ENT: no ulcers no thrush. Tongue is midline. Oropharynx: no rash or ulcers. EYES: Pupils are equal, round and reactive to light accommodation. Eye muscles and extraocular movement intact. Sclera is anicteric. Neck; supple no lymphadenopathy, no thyromegaly or bruit Lungs: Normal respiratory rate/effort. Breath sounds bilateral equal and clear Heart: Incresaed rate. s1s2 normal. No rub or gallop. Extremities: no edema. No varicose veins Neurological: Patient is alert, awake and oriented to person, place and time. No focal deficit. Strength bilateral appropriate and equal Skin: Warm and dry. Normal turgor. No rash. Palpitation: Normal elasticity for age Abdomen: Abdomen is soft. Bowel sounds +. There is marked LUQ abdominal te nderness with guarding no rigidity no organomegaly Psych: limited insight and normal affect/mood MSK: no joint tenderness or swelling. Digits and nails normal, no deformity : kidney or bladder not palpable Labs/imaging reviewed. Past medical history, past surgical history, family history, social history, allergy reviewed and noted as below Family hx: no hx of CKD. Rest non-contributory echo moderate pHTN, normal LVEF UA 2+ protein 3+ blood TRACEY and Hep B/C neg Past Patient History - Infectious Disease Hx of Infectious Diseases: None - Past Medical History & Family History Past Medical History?: Yes - Past Social History Smoking Status: Never Smoked - CARDIAC Hx Cardiac Disorders: Yes Hx Congestive Heart Failure: Yes (Diastolic heart failure) Hx Hypercholesterolemia: No Hx Hypertension: Yes - PULMONARY Hx Chronic Obstructive Pulmonary Disease (COPD): No - NEUROLOGICAL HX Cerebrovascular Accident: No - HEENT Hx HEENT Problems: Yes Hx Blind: No Hx Cataracts: Yes Hx Deafness: No Hx Difficulty Chewing: No Hx Epistaxis: No Hx Glaucoma: Yes Hx Macular Degeneration: No Hx Sinusitis: No Other/Comment: Hx of eye surgery for repair - RENAL Hx Renal Failure: Yes - ENDOCRINE/METABOLIC Hx Diabetes Mellitus Type 1: No Hx Diabetes Mellitus Type 2: No Hx Hypothyroidism: No - HEMATOLOGICAL/ONCOLOGICAL Hx Blood Disorders: Yes Hx AIDS: No Hx Anemia: Yes Hx Blood Transfusions: Yes Hx Blood Transfusion Reaction: No Hx Bruising: No Hx Cancer: No Hx Chemotherapy: No Hx Cirrhosis: No Hx Gum Bleeding: No Hx Hemophilia: No Hx Hepatitis A: No Hx Hepatitis B: No Hx Hepatitis C: No Hx Human Immunodeficiency Virus (HIV): No Hx Leukemia: No Hx Metastesis: No Hx Shingles: No Hx Sickle Cell Disease: No Hx Unexplained Bleeding: No Hx von Willebrand's Disease: No Other/Comment: Myelofibrosis, Myelodysplasia - INTEGUMENTARY Hx Dermatological Problems: No Hx Basil Cell: No Hx Bryant: No Hx Cellulitis: No Hx Eczema: No Hx Melanoma: No Hx Psoriasis: No Hx Squamous Cell: No - MUSCULOSKELETAL/RHEUMATOLOGICAL Hx Arthritis: Yes Hx Rheumatoid Arthritis: No - GASTROINTESTINAL Hx Gastrointestinal Disorders: No Hx Bowel Surgery: No Hx Clostridium Difficile: No Hx Colitis: No Hx Colostomy: No Hx Constipation: No Hx Crohn's Disease: No Hx Diarrhea: No Hx Diverticulitis: No Hx Esophageal Varices: No Hx Fatty Liver Disease: No Hx Gall Bladder Disease: No Hx Gastritis: No Hx Gastroesophageal Reflux: No Hx Hemorrhoids: No Hx Ileostomy: No Hx Irritable Bowel: No Hx Liver Failure: No Hx Nausea: No Hx Pancreatitis: No HX Swallowing Problems: No Hx Ulcer: No Hx Vomiting: No Other/Comment: Hx of hepatospleenomegaly and spleenic embolization - GENITOURINARY/GYNECOLOGICAL Hx Genitourinary Disorders: Yes Hx Bladder Cancer: No Hx Bladder Stone: Yes Hx Cervical Cancer: No Hx Hematuria: No Hx Incontinence: No Hx Ovarian Cancer: No Hx Postmenopausal Bleeding: No Hx Reproductive Disorders: No Hx Sexually Transmitted Disorders: No Hx Uterine Cancer: No Hx Urinary Tract Infection: Yes Other/Comment: urethral strictor, - PSYCHIATRIC Hx Psychophysiologic Disorder: No Hx Anxiety: No Hx Bipolar Disorder: No Hx Depression: No Hx Emotional Abuse: No Hx Hallucinations: No Hx Panic Symptoms: No Hx Paranoia: No Hx Post Traumatic Stress Disorder: No Hx Psychosis: No Hx Physical Abuse: No Hx Schizophrenia: No Hx Sexual Abuse: No Hx Substance Use: No - SURGICAL HISTORY Hx Surgeries: Yes Hx Abdominal Aortic Aneurysm Repair: No Hx Amputation: No Hx Angiogram: No Hx Angioplasty: No Hx Appendectomy: No Hx Arteriovenous Shunt: No Hx Arthroscopy: No Hx Bile Duct Stent: No Hx Breast Biopsy: No Hx Cataract Extraction: No Hx Cardiac Catheterization: No Hx Carotid Endarterectomy: No Hx Section: No Hx Cholecystectomy: No Hx Coronary Artery Bypass Graft: No Hx Coronary Stent: No Hx Dilation and Curettage: No Hx Eye Surgery: Yes Hx Femoral-Popliteal Bypass Graft: No Hx Gastric Bypass Surgery: No Hx Herniorrhaphy: No Hx Hysterectomy: No Hx Joint Replacement: No Hx Kidney Transplant: No Hx Liver Transplant: No Hx Mastectomy: No Hx Musculoskeletal Surgery: No Hx Open Heart Surgery: No Hx Open Reduction Internal Fixation: No Hx Orthopedic Surgery: No Hx Parathyroidectomy: No Hx Penile Implant: No Hx Pulmonary Surgery: No Hx Splenectomy: No (spleenic embolization) Hx Thyroidectomy: No Hx Tonsillectomy: No Hx Tubal Ligation: No Hx Valve Replacement: No Hx Vascular Surgery: No Hx Vascular Access Device: No Other/Comment: embolization of spleen/ - ANESTHESIA Hx Anesthesia: Yes Hx Anesthesia Reactions: No Hx Malignant Hyperthermia: No Has any member of the family had a problem w/ anesthesia?: No Meds Allergies/Adverse Reactions: Allergies Allergy/AdvReac Type Severity Reaction Status Date / Time ciprofloxacin [From Cipro] AdvReac Verified 05/14/18 20:54 - Medications Medications: Current Medications Acetaminophen (Tylenol 325mg Tab) 650 mg PO Q6 PRN PRN Reason: Fever >100.4 F Last Admin: 05/19/18 19:00 Dose: 650 mg Albuterol/Ipratropium (Duoneb 3 Mg/0.5 Mg (3 Ml) Ud) 3 ml INH RQ6 [facility] Last Admin: 05/20/18 14:48 Dose: 3 ml Enoxaparin Sodium (Lovenox) 30 mg SC DAILY [facility] Last Admin: 05/20/18 10:58 Dose: 30 mg Famotidine (Pepcid) 20 mg PO DAILY [facility] Last Admin: 05/20/18 10:59 Dose: 20 mg Hydroxyurea (Hydrea) 500 mg PO BID [facility] Last Admin: 05/15/18 10:00 Dose: 500 mg Ceftazidime/Avibactam 0.94 gm/ (Sodium Chloride) 100 mls @ 50 mls/hr IV Q12H [facility] Last Admin: 05/20/18 06:00 Dose: 50 mls/hr Results - Vital Signs Recent Vital Signs: Last Vital Signs Temp 97.8 F 05/20/18 12:00 Pulse 126 H 05/20/18 15:13 Resp 29 H 05/20/18 15:13 BP 95/55 L 05/20/18 15:13 Pulse Ox 100 05/20/18 15:13 - Labs Result Diagrams: 05/20/18 06:11 05/20/18 06:11 Labs: Laboratory Results - last 24 hr 05/19/18 05/19/18 05/20/18 20:29 20:29 06:11 WBC 16.3 H 16.1 H RBC 2.94 L 2.96 L Hgb 8.4 L 8.6 L Hct 26.4 L 26.7 L MCV 90.0 90.3 MCH 28.7 28.9 MCHC 31.9 L 32.0 L RDW 19.6 H 19.9 H Plt Count 67 L 65 L MPV 12.6 H 13.1 H Neut % (Auto) 89.1 H 88.5 H Lymph % (Auto) 1.9 L 3.3 L Graves % (Auto) 7.0 7.5 Eos % (Auto) 0.7 0.4 Baso % (Auto) 1.3 0.3 Neut # (Auto) 14.5 H 14.2 H Lymph # (Auto) 0.3 L 0.5 L Graves # (Auto) 1.1 H 1.2 H Eos # (Auto) 0.1 0.1 Baso # (Auto) 0.2 0.1 Neutrophils % (Manual) 75 78 H Band Neutrophils % 2 9 H Lymphocytes % (Manual) 2 L 4 L Reactive Lymphs % 1 H Monocytes % (Manual) 18 H 9 Eosinophils % (Manual) 1 Basophils % (Manual) 1 Nucleated RBC % 16 H 9 H Platelet Estimate Decreased L Decreased L Large Platelets Present Present Giant Platelets Present Polychromasia Slight Hypochromasia (manual) Slight Poikilocytosis (manual Slight Anisocytosis (manual) Moderate Slight Microcytosis (manual) Slight Slight Macrocytosis (manual) Moderate Slight Target Cells Slight Tear Drop Cells Slight Ovalocytes Slight Slight Fatmata Cells Slight Schistocytes Slight Sodium 132 Potassium 4.4 Chloride 106 Carbon Dioxide 15 L Anion Gap 16 BUN 95 H Creatinine 2.4 H Est GFR ( Amer) 24 Est GFR (Non-Af Amer) 20 Random Glucose 143 H Calcium 8.0 L Phosphorus Magnesium Total Bilirubin 0.7 AST 21 ALT 44 Alkaline Phosphatase 113 Total Protein 5.0 L Albumin 2.3 L Globulin 2.7 Albumin/Globulin Ratio 0.8 L 05/20/18 06:11 WBC RBC Hgb Hct MCV MCH MCHC RDW Plt Count MPV Neut % (Auto) Lymph % (Auto) Graves % (Auto) Eos % (Auto) Baso % (Auto) Neut # (Auto) Lymph # (Auto) Graves # (Auto) Eos # (Auto) Baso # (Auto) Neutrophils % (Manual) Band Neutrophils % Lymphocytes % (Manual) Reactive Lymphs % Monocytes % (Manual) Eosinophils % (Manual) Basophils % (Manual) Nucleated RBC % Platelet Estimate Large Platelets Giant Platelets Polychromasia Hypochromasia (manual) Poikilocytosis (manual Anisocytosis (manual) Microcytosis (manual) Macrocytosis (manual) Target Cells Tear Drop Cells Ovalocytes [place] Cells Schistocytes Sodium 132 Potassium 4.7 Chloride 106 Carbon Dioxide 14 L Anion Gap 17 BUN 97 H Creatinine 2.5 H Est GFR ( Amer) 23 Est GFR (Non-Af Amer) 19 Random Glucose 102 Calcium 8.3 L Phosphorus 5.2 H Magnesium 2.3 Total Bilirubin 0.8 AST 20 ALT 43 Alkaline Phosphatase 120 Total Protein 5.2 L Albumin 2.4 L Globulin 2.8 Albumin/Globulin Ratio 0.8 L Objective - Vital Signs/Intake and Output Vital Signs (last 24 hours): Temp Pulse Resp BP Pulse Ox 98 F 134 H 28 H 85/47 L 93 L 05/20/18 16:00 05/20/18 18:55 05/20/18 18:55 05/20/18 18:55 05/20/18 18:55 Intake and Output: 05/20/18 05/21/18 18:59 06:59 Intake Total 540 Output Total 250 Balance 290 - Medications Medications: Current Medications Acetaminophen (Tylenol 325mg Tab) 650 mg PO Q6 PRN PRN Reason: Fever >100.4 F Last Admin: 05/19/18 19:00 Dose: 650 mg Albumin Human (Albumin Human 25% (12.5 Gm/50 Ml)) 12.5 gm IV Q6 [facility] Stop: 05/21/18 12:01 Last Admin: 05/20/18 17:46 Dose: 12.5 gm Albuterol/Ipratropium (Duoneb 3 Mg/0.5 Mg (3 Ml) Ud) 3 ml INH RQ6 [facility] Last Admin: 05/20/18 19:02 Dose: Not Given Enoxaparin Sodium (Lovenox) 30 mg SC DAILY [facility] Last Admin: 05/20/18 10:58 Dose: 30 mg Famotidine (Pepcid) 20 mg PO DAILY [facility] Last Admin: 05/20/18 10:59 Dose: 20 mg Hydroxyurea (Hydrea) 500 mg PO BID [facility] Last Admin: 05/15/18 10:00 Dose: 500 mg Albumin Human (Albumin Human 25% (12.5 Gm/50 Ml)) 50 mls @ 100 mls/hr IV Q6H [facility] Stop: 05/21/18 12:59 Last Admin: 05/20/18 17:59 Dose: 100 mls/hr Sodium Bicarbonate (Sodium Bicarbonate Tab) 1,300 mg PO BID [facility] Last Admin: 05/20/18 17:46 Dose: 1,300 mg - Labs Labs: 05/20/18 06:11 05/20/18 06:11
[2018-05-20 22:52] LABS: SQUAMOUS EPITHIAL 2 /hpf (0-5); URINE BACTERIA MOD (<OCC); URINE BILIRUBIN NEGATIVE (NEGATIVE); URINE BLOOD 3+ (NEGATIVE); URINE CLARITY Hazy (Clear); URINE GLUCOSE (UA) NORMAL (Normal); URINE LEUKOCYTE ESTERASE 3+ Leu/uL (Negative); URINE PROTEIN 2+ mg/dL (NEGATIVE); URINE UROBILINOGEN NORMAL mg/dL (0.2-1.0); WBC CLUMPS MANY /hpf
[2018-05-20 22:53] LABS: URINE COLOR YELLOW (YELLOW)
[2018-05-21] MEDS: Albumin Human 25% (12.5 gm/50 ml) IV SCH ×3 (00:14→12:17)
[2018-05-21] MEDS: Albuterol-Ipratrop 3 mg / 0.5 (3 ml) UD INH SCH ×4 (01:09→19:23)
[2018-05-21] MEDS ORDERED: Lidocaine 4% (Laryng-O-Jet) Kit MM STA (08:06)
[2018-05-21 08:26] LABS: BASO # 0.2 K/uL (0.0-0.2); BASO % 1.1 % (0.0-2.0); EOS # 0.1 K/uL (0.0-0.7); EOS % 0.7 % (0.0-4.0); HEMOGLOBIN 7.5 g/dL (11.0-16.0); LYMPH # 0.5 K/uL (1.0-4.3); LYMPH % 3.2 % (20.0-40.0); MEAN CELL VOLUME 90.8 fL (81.0-99.0); MEAN PLATELET VOLUME 13.1 fL (7.2-11.7); MONO # 1.1 K/uL (0.0-0.8); MONO % 6.7 % (0.0-10.0); NEUT % 88.3 % (50.0-75.0); NRBC % 6.8 % (0.0-2.0); PLATELET COUNT 51 K/uL (130-400); RBC 2.58 Mil/uL (3.80-5.20); RED CELL DISTRIBUTION WIDTH 20.3 % (11.5-14.5); WHITE BLOOD COUNT 15.8 K/uL (4.8-10.8)
[2018-05-21 09:10] LABS: ANISOCYTOSIS SLIGHT; BANDS 10 % (0-2); LYMPHOCYTE 3 % (20-40); METAMYELOCYTE 1 % (0-0); MONOCYTE 10 % (0-10); NEUTROPHIL 75 % (50-75); NUCLEATED RED BLOOD CELL 6 % (0-0); PLATELET ESTIMATE DECREASED (NORMAL); POIKILOCYTOSIS SLIGHT; PROMYELOCYTE 1 % (0-0); TOTAL CELLS COUNTED 100
[2018-05-21 09:11] LABS: BURR CELLS SLIGHT; GIANT PLATELETS PRESENT; HYPOCHROMIC MODERATE; LARGE PLATELETS PRESENT; MICROCYTOSIS SLIGHT; OVALOCYTES SLIGHT; TARGET CELLS MODERATE; TEARDROP CELLS SLIGHT
[2018-05-21 09:25] LABS: COMPLEMENT C4 24.8 mg/dL (14.0-44.0); URIC ACID 14.7 mg/dL (2.2-7.5)
[2018-05-21 09:36] LABS: TROPONIN I 0.021 ng/mL (0.00-0.120)
[2018-05-21 09:38] LABS: ALB/GLOB RATIO 1.1 (1.0-2.1); ALBUMIN 2.9 g/dL (3.5-5.0); CALCIUM 8.6 mg/dl (8.6-10.4)
[2018-05-21 10:04] LABS: INR 1.8; PROTHROMBIN TIME 19.5 SECONDS (9.7-12.2)
[2018-05-21] MEDS: Enoxaparin 30 mg Syringe SC SCH (10:40)
--- NOTE | 2018-05-21 10:41 | CT ---
Date of service: 05/20/2018 PROCEDURE: CT Abdomen and Pelvis without intravenous contrast HISTORY: pain abdomen, acute COMPARISON: 05/06/2018 TECHNIQUE: Without contrast.. Contrast dose: 0 Radiation dose: Total exam DLP = mGy-cm. This CT exam was performed using one or more of the following dose reduction techniques: Automated exposure control, adjustment of the mA and/or kV according to patient size, and/or use of iterative reconstruction technique. FINDINGS: LOWER THORAX: Small left pleural effusion. Bilateral lower lobe dependent subsegmental atelectasis. Cardiomegaly. Minimal pericardial effusion. LIVER: Unremarkable. No gross lesion or ductal dilatation. GALLBLADDER AND BILE DUCTS: Large calcified gallstone within the gallbladder lumen. No mural thickening. No pericholecystic fluid. PANCREAS: Unremarkable. No gross lesion or ductal dilatation. SPLEEN: Status post splenic embolization. Infarcted spleen, predominantly liquified, measures approximately 18.3 x 13.5 x 25.0 cm. Gas and fluid are intermixed within this collection. The fluid measures approximately 8 Hounsfield units. Nevertheless, there is reported history of decreasing hematocrit raising suspicion of hemorrhage within this collection. Consider evaluation with CT enterography to look for active extravasation of blood/contrast. There is increased attenuation, ill-defined, in the mesenteric fat medial to the spleen. This is nonspecific and may reflect reactive change associated with the splenic infarction. ADRENALS: Unremarkable. No mass. KIDNEYS AND URETERS: Right ureteral stent. No hydronephrosis. No calculus mass. VASCULATURE: Unremarkable. No aortic aneurysm. BOWEL: Unremarkable. No obstruction. No gross mural thickening. APPENDIX: Unremarkable. Normal appendix. PERITONEUM: Unremarkable. No free fluid. No free air. LYMPH NODES: Unremarkable. No enlarged lymph nodes. BLADDER: Decompressed around Addison catheter balloon. REPRODUCTIVE: Unremarkable postmenopausal uterus. BONES: No acute fracture. OTHER FINDINGS: None. IMPRESSION: Large infarcted spleen predominantly liquified with gas and fluid intermixed within the splenic capsule. Reportedly, the patient has decreasing hematocrit raising suspicion of hemorrhage into the infarcted spleen. Consider further evaluation with CT angiography to evaluate for active extravasation/hemorrhage into this collection. Additional minor findings as above. Findings discussed by telephone at 10:[address] Serna in the ICU. I
[2018-05-21] MEDS ORDERED: Pantoprazole 40 mg EC Tab PO SCH (11:00)
--- NOTE | 2018-05-21 11:50 | CP.CCUPN ---
<Haley Meza L - Last Filed: 05/21/18 13:36> CCU Subjective - Physician Review Subjective (Free Text): Resident Critical Care Progress Note Patient examined at bedside. States she is not feeling too well. Admits to left sided abdominal pain. Denies fever, chills, chest pain, shortness of breath. Critical Care Time Spent (in minutes): 35 CCU Objective - Vital Signs / Intake & Output Vital Signs (Last 4 hours): Vital Signs Temp Pulse Resp BP Pulse Ox 05/21/18 10:46 111 H 32 H 106/57 L 98 05/21/18 10:17 112 H 29 H 100/57 L 98 05/21/18 10:00 112 H 28 H 98 05/21/18 08:33 109 H 25 H 99/57 L 99 05/21/18 08:00 97.9 F 110 H 31 H 99 Intake and Output (Last 8hrs): Intake & Output 05/20/18 05/21/18 05/21/18 22:59 06:59 14:59 Intake Total 1300 100 Output Total 50 Balance 1250 100 Weight 199 lb 3.2 oz Intake: Intake, IV Amount 200 100 Left Wrist 200 100 Oral 1100 Output: Urine 50 Urethral ([place]) 50 - Physical Exam Head: Positive for: Atraumatic, Normocephalic Pupils: Positive for: PERRL Extroacular Muscles: Positive for: EOMI Conjunctiva: Positive for: Normal Ears: Positive for: Normal Mouth: Positive for: Moist Mucous Membranes Nose (External): Positive for: Atraumatic Neck: Positive for: Normal Range of Motion Respiratory/Chest: Positive for: Good Air Exchange, Rhonchi. Negative for: Respiratory Distress Cardiovascular: Positive for: Regular Rate and Rhythm, Normal S1, S2 Abdomen: Positive for: Tenderness (mild tenderness in LUQ), Distention. Negative for: Peritoneal Signs, Rebound Upper Extremity: Positive for: Normal Inspection. Negative for: Cyanosis, Edema Lower Extremity: Positive for: Normal Inspection. Negative for: Edema, CALF TENDERNESS Neurological: Positive for: GCS=15, CN II-XII Intact, Speech Normal Skin: Positive for: Dry, Normal Color. Negative for: Rashes Psychiatric: Positive for: Alert, Oriented x 3 - Medications Active Medications: Active Medications Generic Name Dose Route Start Last Admin Trade Name Freq PRN Reason Stop Dose Admin Acetaminophen 650 mg 05/15/18 08:56 05/19/18 19:00 Tylenol 325mg Tab PO 650 mg Q6 PRN Administration Fever >100.4 F Albumin Human 12.5 gm 05/20/18 18:00 05/21/18 05:25 Albumin Human 25% (12.5 Gm/50 Ml) IV 05/21/18 12:01 12.5 gm Q6 NAN Administration Albuterol/Ipratropium 3 ml 05/15/18 12:00 05/21/18 01:09 Duoneb 3 Mg/0.5 Mg (3 Ml) Ud INH 3 ml RQ6 NAN Administration Enoxaparin Sodium 30 mg 05/15/18 10:00 05/21/18 10:40 Lovenox SC 30 mg DAILY NAN Administration Ergocalciferol 1 cap 05/21/18 11:00 Drisdol 50,000 Intl Units Cap PO Q7D NAN Ferrous Gluconate 324 mg 05/21/18 14:00 Fergon PO TID NAN Hydroxyurea 500 mg 05/15/18 10:00 05/15/18 10:00 Hydrea PO 500 mg BID NAN Administration Albumin Human 50 mls @ 100 mls/hr 05/20/18 18:30 05/21/18 05:48 Albumin Human 25% (12.5 Gm/50 Ml) IV 05/21/18 12:59 100 mls/hr Q6H NAN Administration Ceftazidime/Avibactam 0.94 gm/ 100 mls @ 50 mls/hr 05/21/18 06:00 05/21/18 05:49 Sodium Chloride IV 50 mls/hr Q12H NAN Administration Protocol Pantoprazole Sodium 40 mg 05/21/18 11:00 Protonix Ec Tab PO DAILY NAN Sodium Bicarbonate 1,300 mg 05/20/18 18:00 05/21/18 10:41 Sodium Bicarbonate Tab PO 1,300 mg BID NAN Administration Vitamin B Complex/Vit C/Folic Acid 1 tab 05/22/18 08:00 Nephro-Charlie PO 0800 NAN - Patient Studies Lab Studies: Microbiology Studies 05/17/18 11:50 Blood Culture - Preliminary Blood NO GROWTH AFTER 3 DAYS 05/17/18 11:50 Blood Culture - Preliminary Blood NO GROWTH AFTER 3 DAYS Lab Studies 05/21/18 05/21/18 05/21/18 Range/Units 09:52 09:52 08:55 WBC (4.8-10.8) K/uL RBC (3.80-5.20) Mil/uL Hgb (11.0-16.0) g/dL Hct (34.0-47.0) % MCV (81.0-99.0) fL MCH (27.0-31.0) pg MCHC (33.0-37.0) g/dL RDW (11.5-14.5) % Plt Count (130-400) K/uL MPV (7.2-11.7) fL Neut % (Auto) (50.0-75.0) % Lymph % (Auto) (20.0-40.0) % [place] % (Auto) (0.0-10.0) % Eos % (Auto) (0.0-4.0) % Baso % (Auto) (0.0-2.0) % Neut # (Auto) (1.8-7.0) K/uL Lymph # (Auto) (1.0-4.3) K/uL [place] # (Auto) (0.0-0.8) K/uL Eos # (Auto) (0.0-0.7) K/uL Baso # (Auto) (0.0-0.2) K/uL Neutrophils % (Manual) (50-75) % Band Neutrophils % (0-2) % Lymphocytes % (Manual) (20-40) % Monocytes % (Manual) (0-10) % Metamyelocytes % (0-0) % Promyelocytes % (0-0) % Nucleated RBC % (0-0) % Platelet Estimate (NORMAL) Large Platelets Giant Platelets Hypochromasia (manual) Poikilocytosis (manual Anisocytosis (manual) Microcytosis (manual) Macrocytosis (manual) Target Cells Tear Drop Cells Ovalocytes [place] Cells PT 19.5 H (9.7-12.2) SECONDS INR 1.8 APTT 34 (21-34) SECONDS Sodium 133 (132-148) mmol/L Potassium 4.8 (3.6-5.2) mmol/L Chloride 103 (98-107) mmol/L Carbon Dioxide 16 L (22-30) mmol/L Anion Gap 19 (10-20) BUN 101 H* (7-17) mg/dL Creatinine 2.9 H (0.7-1.2) mg/dL Est GFR ( Amer) 20 Est GFR (Non-Af Amer) 16 Random Glucose 92 (65-105) mg/dL Serum Osmolality (272-300) mosm/kg Uric Acid (2.2-7.5) mg/dL Calcium 8.6 (8.6-10.4) mg/dl Phosphorus 5.6 H (2.5-4.5) mg/dL Total Bilirubin 0.9 (0.2-1.3) mg/dL AST 16 (14-36) U/L ALT 40 (9-52) U/L Alkaline Phosphatase 95 (38-126) U/L Total Creatine Kinase (30-135) U/L Troponin I 0.0210 (0.00-0.120) ng/mL Total Protein 5.5 L (6.3-8.3) g/dL Albumin 2.9 L D (3.5-5.0) g/dL Globulin 2.6 (2.2-3.9) gm/dL Albumin/Globulin Ratio 1.1 (1.0-2.1) 25-OH Vitamin D Total (30.0-100.0) NG/ML Urine Color (YELLOW) Urine Clarity (Clear) Urine pH (5.0-8.0) Ur Specific [place] (1.003-1.030) Urine Protein (NEGATIVE) mg/dL Urine Glucose (UA) (Normal) mg/dL Urine Ketones (NEGATIVE) mg/dL Urine Blood (NEGATIVE) Urine Nitrate (NEGATIVE) Urine Bilirubin (NEGATIVE) Urine Urobilinogen (0.2-1.0) mg/dL Ur Leukocyte Esterase (Negative) Leo/uL Urine WBC (Auto) (0-5) /hpf Urine RBC (Auto) (0-3) /hpf Urine WBC Clumps (Auto) (NONE) /hpf Ur Squamous Epith Cells (0-5) /hpf Urine Bacteria (<OCC) Urine Osmolality (300-1000) mosm/kg Ur Random Sodium mmol/L Ur Random Potassium mmol/L Complement C3 (88.0-165.0) mg/dL Complement C4 (14.0-44.0) mg/dL HIV 1&2 Antibody Screen (NEGATIVE) Blood Type A POSITIVE Antibody Screen Negative 05/21/18 05/21/18 05/21/18 Range/Units 08:55 08:55 08:55 WBC (4.8-10.8) K/uL RBC (3.80-5.20) Mil/uL Hgb (11.0-16.0) g/dL Hct (34.0-47.0) % MCV (81.0-99.0) fL MCH (27.0-31.0) pg MCHC (33.0-37.0) g/dL RDW (11.5-14.5) % Plt Count (130-400) K/uL MPV (7.2-11.7) fL Neut % (Auto) (50.0-75.0) % Lymph % (Auto) (20.0-40.0) % [place] % (Auto) (0.0-10.0) % Eos % (Auto) (0.0-4.0) % Baso % (Auto) (0.0-2.0) % Neut # (Auto) (1.8-7.0) K/uL Lymph # (Auto) (1.0-4.3) K/uL [place] # (Auto) (0.0-0.8) K/uL Eos # (Auto) (0.0-0.7) K/uL Baso # (Auto) (0.0-0.2) K/uL Neutrophils % (Manual) (50-75) % Band Neutrophils % (0-2) % Lymphocytes % (Manual) (20-40) % Monocytes % (Manual) (0-10) % Metamyelocytes % (0-0) % Promyelocytes % (0-0) % Nucleated RBC % (0-0) % Platelet Estimate (NORMAL) Large Platelets Giant Platelets Hypochromasia (manual) Poikilocytosis (manual Anisocytosis (manual) Microcytosis (manual) Macrocytosis (manual) Target Cells Tear Drop Cells Ovalocytes [place] Cells PT (9.7-12.2) SECONDS INR APTT (21-34) SECONDS Sodium (132-148) mmol/L Potassium (3.6-5.2) mmol/L Chloride (98-107) mmol/L Carbon Dioxide (22-30) mmol/L Anion Gap (10-20) BUN (7-17) mg/dL Creatinine (0.7-1.2) mg/dL Est GFR ( Amer) Est GFR (Non-Af Amer) Random Glucose (65-105) mg/dL Serum Osmolality (272-300) mosm/kg Uric Acid 14.7 H (2.2-7.5) mg/dL Calcium (8.6-10.4) mg/dl Phosphorus (2.5-4.5) mg/dL Total Bilirubin (0.2-1.3) mg/dL AST (14-36) U/L ALT (9-52) U/L Alkaline Phosphatase (38-126) U/L Total Creatine Kinase < 20 L (30-135) U/L Troponin I (0.00-0.120) ng/mL Total Protein (6.3-8.3) g/dL Albumin (3.5-5.0) g/dL Globulin (2.2-3.9) gm/dL Albumin/Globulin Ratio (1.0-2.1) 25-OH Vitamin D Total (30.0-100.0) NG/ML Urine Color (YELLOW) Urine Clarity (Clear) Urine pH (5.0-8.0) Ur Specific [place] (1.003-1.030) Urine Protein (NEGATIVE) mg/dL Urine Glucose (UA) (Normal) mg/dL Urine Ketones (NEGATIVE) mg/dL Urine Blood (NEGATIVE) Urine Nitrate (NEGATIVE) Urine Bilirubin (NEGATIVE) Urine Urobilinogen (0.2-1.0) mg/dL Ur Leukocyte Esterase (Negative) Leo/uL Urine WBC (Auto) (0-5) /hpf Urine RBC (Auto) (0-3) /hpf Urine WBC Clumps (Auto) (NONE) /hpf Ur Squamous Epith Cells (0-5) /hpf Urine Bacteria (<OCC) Urine Osmolality (300-1000) mosm/kg Ur Random Sodium mmol/L Ur Random Potassium mmol/L Complement C3 65.0 L (88.0-165.0) mg/dL Complement C4 24.8 (14.0-44.0) mg/dL HIV 1&2 Antibody Screen Negative (NEGATIVE) Blood Type Antibody Screen 05/21/18 05/21/18 05/21/18 Range/Units 08:55 08:55 07:38 WBC 15.8 H (4.8-10.8) K/uL RBC 2.58 L (3.80-5.20) Mil/uL Hgb 7.5 L (11.0-16.0) g/dL Hct 23.4 L (34.0-47.0) % MCV 90.8 (81.0-99.0) fL MCH 29.0 (27.0-31.0) pg MCHC 32.0 L (33.0-37.0) g/dL RDW 20.3 H (11.5-14.5) % Plt Count 51 L (130-400) K/uL MPV 13.1 H (7.2-11.7) fL Neut % (Auto) 88.3 H (50.0-75.0) % Lymph % (Auto) 3.2 L (20.0-40.0) % [place] % (Auto) 6.7 (0.0-10.0) % Eos % (Auto) 0.7 (0.0-4.0) % Baso % (Auto) 1.1 (0.0-2.0) % Neut # (Auto) 14.0 H (1.8-7.0) K/uL Lymph # (Auto) 0.5 L (1.0-4.3) K/uL [place] # (Auto) 1.1 H (0.0-0.8) K/uL Eos # (Auto) 0.1 (0.0-0.7) K/uL Baso # (Auto) 0.2 (0.0-0.2) K/uL Neutrophils % (Manual) 75 (50-75) % Band Neutrophils % 10 H (0-2) % Lymphocytes % (Manual) 3 L (20-40) % Monocytes % (Manual) 10 (0-10) % Metamyelocytes % 1 H (0-0) % Promyelocytes % 1 H (0-0) % Nucleated RBC % 6 H (0-0) % Platelet Estimate Decreased L (NORMAL) Large Platelets Present Giant Platelets Present Hypochromasia (manual) Moderate Poikilocytosis (manual Slight Anisocytosis (manual) Slight Microcytosis (manual) Slight Macrocytosis (manual) Slight Target Cells Moderate Tear Drop Cells Slight Ovalocytes Slight [place] Cells Slight PT (9.7-12.2) SECONDS INR APTT (21-34) SECONDS Sodium (132-148) mmol/L Potassium (3.6-5.2) mmol/L Chloride (98-107) mmol/L Carbon Dioxide (22-30) mmol/L Anion Gap (10-20) BUN (7-17) mg/dL Creatinine (0.7-1.2) mg/dL Est GFR ( Amer) Est GFR (Non-Af Amer) Random Glucose (65-105) mg/dL Serum Osmolality 309 H (272-300) mosm/kg Uric Acid (2.2-7.5) mg/dL Calcium (8.6-10.4) mg/dl Phosphorus (2.5-4.5) mg/dL Total Bilirubin (0.2-1.3) mg/dL AST (14-36) U/L ALT (9-52) U/L Alkaline Phosphatase (38-126) U/L Total Creatine Kinase (30-135) U/L Troponin I (0.00-0.120) ng/mL Total Protein (6.3-8.3) g/dL Albumin (3.5-5.0) g/dL Globulin (2.2-3.9) gm/dL Albumin/Globulin Ratio (1.0-2.1) 25-OH Vitamin D Total 22.1 L (30.0-100.0) NG/ML Urine Color (YELLOW) Urine Clarity (Clear) Urine pH (5.0-8.0) Ur Specific [place] (1.003-1.030) Urine Protein (NEGATIVE) mg/dL Urine Glucose (UA) (Normal) mg/dL Urine Ketones (NEGATIVE) mg/dL Urine Blood (NEGATIVE) Urine Nitrate (NEGATIVE) Urine Bilirubin (NEGATIVE) Urine Urobilinogen (0.2-1.0) mg/dL Ur Leukocyte Esterase (Negative) Leo/uL Urine WBC (Auto) (0-5) /hpf Urine RBC (Auto) (0-3) /hpf Urine WBC Clumps (Auto) (NONE) /hpf Ur Squamous Epith Cells (0-5) /hpf Urine Bacteria (<OCC) Urine Osmolality (300-1000) mosm/kg Ur Random Sodium mmol/L Ur Random Potassium mmol/L Complement C3 (88.0-165.0) mg/dL Complement C4 (14.0-44.0) mg/dL HIV 1&2 Antibody Screen (NEGATIVE) Blood Type Antibody Screen 05/20/18 05/20/18 05/20/18 Range/Units 22:43 22:43 22:43 WBC (4.8-10.8) K/uL RBC (3.80-5.20) Mil/uL Hgb (11.0-16.0) g/dL Hct (34.0-47.0) % MCV (81.0-99.0) fL MCH (27.0-31.0) pg MCHC (33.0-37.0) g/dL RDW (11.5-14.5) % Plt Count (130-400) K/uL MPV (7.2-11.7) fL Neut % (Auto) (50.0-75.0) % Lymph % (Auto) (20.0-40.0) % [place] % (Auto) (0.0-10.0) % Eos % (Auto) (0.0-4.0) % Baso % (Auto) (0.0-2.0) % Neut # (Auto) (1.8-7.0) K/uL Lymph # (Auto) (1.0-4.3) K/uL [place] # (Auto) (0.0-0.8) K/uL Eos # (Auto) (0.0-0.7) K/uL Baso # (Auto) (0.0-0.2) K/uL Neutrophils % (Manual) (50-75) % Band Neutrophils % (0-2) % Lymphocytes % (Manual) (20-40) % Monocytes % (Manual) (0-10) % Metamyelocytes % (0-0) % Promyelocytes % (0-0) % Nucleated RBC % (0-0) % Platelet Estimate (NORMAL) Large Platelets Giant Platelets Hypochromasia (manual) Poikilocytosis (manual Anisocytosis (manual) Microcytosis (manual) Macrocytosis (manual) Target Cells Tear Drop Cells Ovalocytes [place] Cells PT (9.7-12.2) SECONDS INR APTT (21-34) SECONDS Sodium (132-148) mmol/L Potassium (3.6-5.2) mmol/L Chloride (98-107) mmol/L Carbon Dioxide (22-30) mmol/L Anion Gap (10-20) BUN (7-17) mg/dL Creatinine (0.7-1.2) mg/dL Est GFR ( Amer) Est GFR (Non-Af Amer) Random Glucose (65-105) mg/dL Serum Osmolality (272-300) mosm/kg Uric Acid (2.2-7.5) mg/dL Calcium (8.6-10.4) mg/dl Phosphorus (2.5-4.5) mg/dL Total Bilirubin (0.2-1.3) mg/dL AST (14-36) U/L ALT (9-52) U/L Alkaline Phosphatase (38-126) U/L Total Creatine Kinase (30-135) U/L Troponin I (0.00-0.120) ng/mL Total Protein (6.3-8.3) g/dL Albumin (3.5-5.0) g/dL Globulin (2.2-3.9) gm/dL Albumin/Globulin Ratio (1.0-2.1) 25-OH Vitamin D Total (30.0-100.0) NG/ML Urine Color Yellow (YELLOW) Urine Clarity Hazy (Clear) Urine pH 5.0 (5.0-8.0) Ur Specific [place] 1.015 (1.003-1.030) Urine Protein 2+ H (NEGATIVE) mg/dL Urine Glucose (UA) Normal (Normal) mg/dL Urine Ketones Negative (NEGATIVE) mg/dL Urine Blood 3+ H (NEGATIVE) Urine Nitrate Negative (NEGATIVE) Urine Bilirubin Negative (NEGATIVE) Urine Urobilinogen Normal (0.2-1.0) mg/dL Ur Leukocyte Esterase 3+ H (Negative) Leo/uL Urine WBC (Auto) 374 H (0-5) /hpf Urine RBC (Auto) 79 H (0-3) /hpf Urine WBC Clumps (Auto) Many H (NONE) /hpf Ur Squamous Epith Cells 2 (0-5) /hpf Urine Bacteria Mod H (<OCC) Urine Osmolality 322 (300-1000) mosm/kg Ur Random Sodium 27 mmol/L Ur Random Potassium 19.8 mmol/L Complement C3 (88.0-165.0) mg/dL Complement C4 (14.0-44.0) mg/dL HIV 1&2 Antibody Screen (NEGATIVE) Blood Type Antibody Screen Laboratory Results - last 24 hr 05/20/18 05/20/18 05/20/18 22:43 22:43 22:43 WBC RBC Hgb Hct MCV MCH MCHC RDW Plt Count MPV Neut % (Auto) Lymph % (Auto) [place] % (Auto) Eos % (Auto) Baso % (Auto) Neut # (Auto) Lymph # (Auto) [place] # (Auto) Eos # (Auto) Baso # (Auto) Neutrophils % (Manual) Band Neutrophils % Lymphocytes % (Manual) Monocytes % (Manual) Metamyelocytes % Promyelocytes % Nucleated RBC % Platelet Estimate Large Platelets Giant Platelets Hypochromasia (manual) Poikilocytosis (manual Anisocytosis (manual) Microcytosis (manual) Macrocytosis (manual) Target Cells Tear Drop Cells Ovalocytes [place] Cells PT INR APTT Sodium Potassium Chloride Carbon Dioxide Anion Gap BUN Creatinine Est GFR ( Amer) Est GFR (Non-Af Amer) Random Glucose Serum Osmolality Uric Acid Calcium Phosphorus Total Bilirubin AST ALT Alkaline Phosphatase Total Creatine Kinase Troponin I Total Protein Albumin Globulin Albumin/Globulin Ratio 25-OH Vitamin D Total Urine Color Yellow Urine Clarity Hazy Urine pH 5.0 Ur Specific [place] 1.015 Urine Protein 2+ H Urine Glucose (UA) Normal Urine Ketones Negative Urine Blood 3+ H Urine Nitrate Negative Urine Bilirubin Negative Urine Urobilinogen Normal Ur Leukocyte Esterase 3+ H Urine WBC (Auto) 374 H Urine RBC (Auto) 79 H Urine WBC Clumps (Auto) Many H Ur Squamous Epith Cells 2 Urine Bacteria Mod H Urine Osmolality 322 Ur Random Sodium 27 Ur Random Potassium 19.8 Complement C3 Complement C4 HIV 1&2 Antibody Screen Blood Type Antibody Screen 05/21/18 05/21/18 05/21/18 07:38 08:55 08:55 WBC 15.8 H RBC 2.58 L Hgb 7.5 L Hct 23.4 L MCV 90.8 MCH 29.0 MCHC 32.0 L RDW 20.3 H Plt Count 51 L MPV 13.1 H Neut % (Auto) 88.3 H Lymph % (Auto) 3.2 L [place] % (Auto) 6.7 Eos % (Auto) 0.7 Baso % (Auto) 1.1 Neut # (Auto) 14.0 H Lymph # (Auto) 0.5 L [place] # (Auto) 1.1 H Eos # (Auto) 0.1 Baso # (Auto) 0.2 Neutrophils % (Manual) 75 Band Neutrophils % 10 H Lymphocytes % (Manual) 3 L Monocytes % (Manual) 10 Metamyelocytes % 1 H Promyelocytes % 1 H Nucleated RBC % 6 H Platelet Estimate Decreased L Large Platelets Present Giant Platelets Present Hypochromasia (manual) Moderate Poikilocytosis (manual Slight Anisocytosis (manual) Slight Microcytosis (manual) Slight Macrocytosis (manual) Slight Target Cells Moderate Tear Drop Cells Slight Ovalocytes Slight [place] Cells Slight PT INR APTT Sodium Potassium Chloride Carbon Dioxide Anion Gap BUN Creatinine Est GFR ( Amer) Est GFR (Non-Af Amer) Random Glucose Serum Osmolality 309 H Uric Acid Calcium Phosphorus Total Bilirubin AST ALT Alkaline Phosphatase Total Creatine Kinase Troponin I Total Protein Albumin Globulin Albumin/Globulin Ratio 25-OH Vitamin D Total 22.1 L Urine Color Urine Clarity Urine pH Ur Specific [place] Urine Protein Urine Glucose (UA) Urine Ketones Urine Blood Urine Nitrate Urine Bilirubin Urine Urobilinogen Ur Leukocyte Esterase Urine WBC (Auto) Urine RBC (Auto) Urine WBC Clumps (Auto) Ur Squamous Epith Cells Urine Bacteria Urine Osmolality Ur Random Sodium Ur Random Potassium Complement C3 Complement C4 HIV 1&2 Antibody Screen Blood Type Antibody Screen 05/21/18 05/21/18 05/21/18 08:55 08:55 08:55 WBC RBC Hgb Hct MCV MCH MCHC RDW Plt Count MPV Neut % (Auto) Lymph % (Auto) [place] % (Auto) Eos % (Auto) Baso % (Auto) Neut # (Auto) Lymph # (Auto) [place] # (Auto) Eos # (Auto) Baso # (Auto) Neutrophils % (Manual) Band Neutrophils % Lymphocytes % (Manual) Monocytes % (Manual) Metamyelocytes % Promyelocytes % Nucleated RBC % Platelet Estimate Large Platelets Giant Platelets Hypochromasia (manual) Poikilocytosis (manual Anisocytosis (manual) Microcytosis (manual) Macrocytosis (manual) Target Cells Tear Drop Cells Ovalocytes [place] Cells PT INR APTT Sodium Potassium Chloride Carbon Dioxide Anion Gap BUN Creatinine Est GFR ( Amer) Est GFR (Non-Af Amer) Random Glucose Serum Osmolality Uric Acid 14.7 H Calcium Phosphorus Total Bilirubin AST ALT Alkaline Phosphatase Total Creatine Kinase < 20 L Troponin I Total Protein Albumin Globulin Albumin/Globulin Ratio 25-OH Vitamin D Total Urine Color Urine Clarity Urine pH Ur Specific [place] Urine Protein Urine Glucose (UA) Urine Ketones Urine Blood Urine Nitrate Urine Bilirubin Urine Urobilinogen Ur Leukocyte Esterase Urine WBC (Auto) Urine RBC (Auto) Urine WBC Clumps (Auto) Ur Squamous Epith Cells Urine Bacteria Urine Osmolality Ur Random Sodium Ur Random Potassium Complement C3 65.0 L Complement C4 24.8 HIV 1&2 Antibody Screen Negative Blood Type Antibody Screen 05/21/18 05/21/18 05/21/18 08:55 09:52 09:52 WBC RBC Hgb Hct MCV MCH MCHC RDW Plt Count MPV Neut % (Auto) Lymph % (Auto) [place] % (Auto) Eos % (Auto) Baso % (Auto) Neut # (Auto) Lymph # (Auto) [place] # (Auto) Eos # (Auto) Baso # (Auto) Neutrophils % (Manual) Band Neutrophils % Lymphocytes % (Manual) Monocytes % (Manual) Metamyelocytes % Promyelocytes % Nucleated RBC % Platelet Estimate Large Platelets Giant Platelets Hypochromasia (manual) Poikilocytosis (manual Anisocytosis (manual) Microcytosis (manual) Macrocytosis (manual) Target Cells Tear Drop Cells Ovalocytes [place] Cells PT 19.5 H INR 1.8 APTT 34 Sodium 133 Potassium 4.8 Chloride 103 Carbon Dioxide 16 L Anion Gap 19 BUN 101 H* Creatinine 2.9 H Est GFR ( Amer) 20 Est GFR (Non-Af Amer) 16 Random Glucose 92 Serum Osmolality Uric Acid Calcium 8.6 Phosphorus 5.6 H Total Bilirubin 0.9 AST 16 ALT 40 Alkaline Phosphatase 95 Total Creatine Kinase Troponin I 0.0210 Total Protein 5.5 L Albumin 2.9 L D Globulin 2.6 Albumin/Globulin Ratio 1.1 25-OH Vitamin D Total Urine Color Urine Clarity Urine pH Ur Specific [place] Urine Protein Urine Glucose (UA) Urine Ketones Urine Blood Urine Nitrate Urine Bilirubin Urine Urobilinogen Ur Leukocyte Esterase Urine WBC (Auto) Urine RBC (Auto) Urine WBC Clumps (Auto) Ur Squamous Epith Cells Urine Bacteria Urine Osmolality Ur Random Sodium Ur Random Potassium Complement C3 Complement C4 HIV 1&2 Antibody Screen Blood Type A POSITIVE Antibody Screen Negative EKG/Cardiology Studies: Cardiology / EKG Studies 05/21/18 08:25 ELECTROCARDIOGRAM Stat Comment: Mode Of Transportation: Reason For Exam: cardiac Isolation: Contact Review of Systems - Review of Systems All systems: reviewed and no additional remarkable complaints except (as stated in HPI) Critical Care Progress Note - Prophylaxis GI Prophylaxis GI: PPI - Prophylaxis DVT Prophylaxis DVT: Lovenox - Nutrition Nutrition: TPN Assessment/Plan - Assessment and Plan (Free Text) Assessment: 67 year old female with a PMHx of myelofibrosis, HTN, renal insufficiency admitted with fever and UTI. 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 On previous admission patient had splenic embolization. Plan: Neuro: - AAO x3 Pulm: - Nasal cannula as tolerated - Maintain SPO2 > 92% - Duonebs 3 ml INH RQ6 CV: - Currently hemodynamically stable - Eliquis held 09/20 acute hemorrhagic process emanating from the spleen - ECHO from previous admission showed normal left ventricle systolic function. EF 65-70%. Moderate pulmonary HTN. - Dopplers showed acute thrombosis of right gastrocnemius vein with severe reduction of venous return. - Abd/pelvis CT shows small left pleural effusion, minimal pericardial effusion - Followup repeat ECHO GI: - s/p IR splenic artery embolization - 05/[address] shows large infarcted spleen predominantly liquified with gas and fluid. Suspicion for hemorrhage into infarcted spleen. - Pepcid 20mg PO daily Renal: - SOFIA - UA shows 2+ protein, 3+ blood - Monitor I and O - Replete electrolytes as needed - Urology Dr Flor Irvin consulted. Appreciate recs. - Nephrology Dr. Wylie consulted. Recs appreciated. ID: - [id number] BCx show NG after 4 days - Tygacil 100 mg given - ID Dr. Jackson consulted. Recs appreciated. - Avycaz 0.94 g IV q12h (started 05/15) Heme/Onc - Hx of myelofibrosis with chronic leukocytosis - Dr. Mcbride consulted. Recs appreciated. - Holding Hydrea, Jakafi - 2 units pRBCs given - Ferrous gluconate 324 mg PO TID Endo: - Maintain euglycemia PPX: Pepcid 20 mg PO daily, Lovenox 30 mg SC daily Case and plan was reviewed and discussed with Dr. Kareem Meza PGY-1 - Date & Time Date: 05/21/18 Time: 08:00 <Enmanuel Serna - Last Filed: 10/03/18 17:37> CCU Subjective - Physician Review Critical Care Time Spent (in minutes): 45 CCU Objective - Vital Signs / Intake & Output Vital Signs (Last 4 hours): Vital Signs Temp Pulse Resp BP Pulse Ox 05/21/18 16:07 97.8 F 109 H 25 H 103/56 L 99 05/21/18 16:00 111 H 31 H 98 05/21/18 15:37 111 H 30 H 109/60 97 05/21/18 15:34 111 H 31 H 107/62 98 05/21/18 15:07 113 H 27 H 99/53 L 98 05/21/18 14:37 112 H 22 100/52 L 97 05/21/18 14:02 98.1 F 114 H 26 H 97/50 L 97 05/21/18 14:00 111 H 24 98 05/21/18 13:47 113 H 25 H 104/55 L 98 Intake and Output (Last 8hrs): Intake & Output 05/21/18 05/21/18 05/21/18 06:59 14:59 22:59 Intake Total 100 0 375 Balance 100 0 375 Weight 199 lb 3.2 oz Intake: Intake, IV Amount 100 Left Wrist 100 Blood Product 0 325 Red Blood Cells Cpd As1 0 325 Lr Unit [id number] Other 50 Red Blood Cells Cpd As1 50 Lr Unit [id number] - Medications Active Medications: Active Medications Generic Name Dose Route Start Last Admin Trade Name Freq PRN Reason Stop Dose Admin Acetaminophen 650 mg 05/15/18 08:56 05/19/18 19:00 Tylenol 325mg Tab PO 650 mg Q6 PRN Administration Fever >100.4 F Albuterol/Ipratropium 3 ml 05/15/18 12:00 05/21/18 13:34 Duoneb 3 Mg/0.5 Mg (3 Ml) Ud INH 3 ml RQ6 NAN Administration Enoxaparin Sodium 30 mg 05/15/18 10:00 05/21/18 10:40 Lovenox SC 30 mg DAILY NAN Administration Epoetin Koby 8,000 unit 05/22/18 10:00 Procrit SC TTS NAN Ergocalciferol 1 cap 05/21/18 11:00 05/21/18 11:56 Drisdol 50,000 Intl Units Cap PO 1 cap Q7D NAN Administration Ferrous Gluconate 324 mg 05/21/18 14:00 05/21/18 15:59 Fergon PO 324 mg TID NAN Administration Hydroxyurea 500 mg 05/15/18 10:00 05/15/18 10:00 Hydrea PO 500 mg BID NAN Administration Ceftazidime/Avibactam 0.94 gm/ 100 mls @ 50 mls/hr 05/21/18 06:00 05/21/18 05:49 Sodium Chloride IV 50 mls/hr Q12H NAN Administration Protocol Multivitamins/Vitamin C 10 ml/ 1,031 mls @ 42 mls/hr 05/21/18 18:00 Chromium/Copper/Manganese/ IV 05/22/18 17:59 Zinc 1 ml/ Parenteral .Q24H ONE Electrolytes 20 ml/ Amino Acids Metronidazole 500 mg in 100 mls @ 100 mls/hr 05/21/18 17:00 05/21/18 16:25 Flagyl IVPB 100 mls/hr Q8H NAN Administration Protocol Pantoprazole Sodium 40 mg 05/21/18 12:00 05/21/18 11:56 Protonix Susp PO 40 mg DAILY NAN Administration Sodium Bicarbonate 1,300 mg 05/20/18 18:00 05/21/18 10:41 Sodium Bicarbonate Tab PO 1,300 mg BID NAN Administration Vitamin B Complex/Vit C/Folic Acid 1 tab 05/22/18 08:00 Nephro-Charlie PO 0800 NAN - Patient Studies Lab Studies: Microbiology Studies 05/17/18 11:50 Blood Culture - Preliminary Blood NO GROWTH AFTER 4 DAYS 05/17/18 11:50 Blood Culture - Preliminary Blood NO GROWTH AFTER 4 DAYS Lab Studies 05/21/18 05/21/18 05/21/18 Range/Units 09:52 09:52 08:55 WBC (4.8-10.8) K/uL RBC (3.80-5.20) Mil/uL Hgb (11.0-16.0) g/dL Hct (34.0-47.0) % MCV (81.0-99.0) fL MCH (27.0-31.0) pg MCHC (33.0-37.0) g/dL RDW (11.5-14.5) % Plt Count (130-400) K/uL MPV (7.2-11.7) fL Neut % (Auto) (50.0-75.0) % Lymph % (Auto) (20.0-40.0) % [place] % (Auto) (0.0-10.0) % Eos % (Auto) (0.0-4.0) % Baso % (Auto) (0.0-2.0) % Neut # (Auto) (1.8-7.0) K/uL Lymph # (Auto) (1.0-4.3) K/uL [place] # (Auto) (0.0-0.8) K/uL Eos # (Auto) (0.0-0.7) K/uL Baso # (Auto) (0.0-0.2) K/uL Neutrophils % (Manual) (50-75) % Band Neutrophils % (0-2) % Lymphocytes % (Manual) (20-40) % Monocytes % (Manual) (0-10) % Metamyelocytes % (0-0) % Promyelocytes % (0-0) % Nucleated RBC % (0-0) % Platelet Estimate (NORMAL) Large Platelets Giant Platelets Hypochromasia (manual) Poikilocytosis (manual Anisocytosis (manual) Microcytosis (manual) Macrocytosis (manual) Target Cells Tear Drop Cells Ovalocytes Fatm[place] Cells PT 19.5 H (9.7-12.2) SECONDS INR 1.8 APTT 34 (21-34) SECONDS Sodium 133 (132-148) mmol/L Potassium 4.8 (3.6-5.2) mmol/L Chloride 103 (98-107) mmol/L Carbon Dioxide 16 L (22-30) mmol/L Anion Gap 19 (10-20) BUN 101 H* (7-17) mg/dL Creatinine 2.9 H (0.7-1.2) mg/dL Est GFR ( Amer) 20 Est GFR (Non-Af Amer) 16 Random Glucose 92 (65-105) mg/dL Serum Osmolality (272-300) mosm/kg Uric Acid (2.2-7.5) mg/dL Calcium 8.6 (8.6-10.4) mg/dl Phosphorus 5.6 H (2.5-4.5) mg/dL Total Bilirubin 0.9 (0.2-1.3) mg/dL AST 16 (14-36) U/L ALT 40 (9-52) U/L Alkaline Phosphatase 95 (38-126) U/L Total Creatine Kinase (30-135) U/L Troponin I 0.0210 (0.00-0.120) ng/mL Total Protein 5.5 L (6.3-8.3) g/dL Albumin 2.9 L D (3.5-5.0) g/dL Globulin 2.6 (2.2-3.9) gm/dL Albumin/Globulin Ratio 1.1 (1.0-2.1) 25-OH Vitamin D Total (30.0-100.0) NG/ML Urine Color (YELLOW) Urine Clarity (Clear) Urine pH (5.0-8.0) Ur Specific [place] (1.003-1.030) Urine Protein (NEGATIVE) mg/dL Urine Glucose (UA) (Normal) mg/dL Urine Ketones (NEGATIVE) mg/dL Urine Blood (NEGATIVE) Urine Nitrate (NEGATIVE) Urine Bilirubin (NEGATIVE) Urine Urobilinogen (0.2-1.0) mg/dL Ur Leukocyte Esterase (Negative) Leo/uL Urine WBC (Auto) (0-5) /hpf Urine RBC (Auto) (0-3) /hpf Urine WBC Clumps (Auto) (NONE) /hpf Ur Squamous Epith Cells (0-5) /hpf Urine Bacteria (<OCC) Urine Osmolality (300-1000) mosm/kg Ur Random Sodium mmol/L Ur Random Potassium mmol/L Complement C3 (88.0-165.0) mg/dL Complement C4 (14.0-44.0) mg/dL HIV 1&2 Antibody Screen (NEGATIVE) Blood Type A POSITIVE Antibody Screen Negative 05/21/18 05/21/18 05/21/18 Range/Units 08:55 08:55 08:55 WBC (4.8-10.8) K/uL RBC (3.80-5.20) Mil/uL Hgb (11.0-16.0) g/dL Hct (34.0-47.0) % MCV (81.0-99.0) fL MCH (27.0-31.0) pg MCHC (33.0-37.0) g/dL RDW (11.5-14.5) % Plt Count (130-400) K/uL MPV (7.2-11.7) fL Neut % (Auto) (50.0-75.0) % Lymph % (Auto) (20.0-40.0) % [place] % (Auto) (0.0-10.0) % Eos % (Auto) (0.0-4.0) % Baso % (Auto) (0.0-2.0) % Neut # (Auto) (1.8-7.0) K/uL Lymph # (Auto) (1.0-4.3) K/uL [place] # (Auto) (0.0-0.8) K/uL Eos # (Auto) (0.0-0.7) K/uL Baso # (Auto) (0.0-0.2) K/uL Neutrophils % (Manual) (50-75) % Band Neutrophils % (0-2) % Lymphocytes % (Manual) (20-40) % Monocytes % (Manual) (0-10) % Metamyelocytes % (0-0) % Promyelocytes % (0-0) % Nucleated RBC % (0-0) % Platelet Estimate (NORMAL) Large Platelets Giant Platelets Hypochromasia (manual) Poikilocytosis (manual Anisocytosis (manual) Microcytosis (manual) Macrocytosis (manual) Target Cells Tear Drop Cells Ovalocytes [place] Cells PT (9.7-12.2) SECONDS INR APTT (21-34) SECONDS Sodium (132-148) mmol/L Potassium (3.6-5.2) mmol/L Chloride (98-107) mmol/L Carbon Dioxide (22-30) mmol/L Anion Gap (10-20) BUN (7-17) mg/dL Creatinine (0.7-1.2) mg/dL Est GFR ( Amer) Est GFR (Non-Af Amer) Random Glucose (65-105) mg/dL Serum Osmolality (272-300) mosm/kg Uric Acid 14.7 H (2.2-7.5) mg/dL Calcium (8.6-10.4) mg/dl Phosphorus (2.5-4.5) mg/dL Total Bilirubin (0.2-1.3) mg/dL AST (14-36) U/L ALT (9-52) U/L Alkaline Phosphatase (38-126) U/L Total Creatine Kinase < 20 L (30-135) U/L Troponin I (0.00-0.120) ng/mL Total Protein (6.3-8.3) g/dL Albumin (3.5-5.0) g/dL Globulin (2.2-3.9) gm/dL Albumin/Globulin Ratio (1.0-2.1) 25-OH Vitamin D Total (30.0-100.0) NG/ML Urine Color (YELLOW) Urine Clarity (Clear) Urine pH (5.0-8.0) Ur Specific [place] (1.003-1.030) Urine Protein (NEGATIVE) mg/dL Urine Glucose (UA) (Normal) mg/dL Urine Ketones (NEGATIVE) mg/dL Urine Blood (NEGATIVE) Urine Nitrate (NEGATIVE) Urine Bilirubin (NEGATIVE) Urine Urobilinogen (0.2-1.0) mg/dL Ur Leukocyte Esterase (Negative) Leo/uL Urine WBC (Auto) (0-5) /hpf Urine RBC (Auto) (0-3) /hpf Urine WBC Clumps (Auto) (NONE) /hpf Ur Squamous Epith Cells (0-5) /hpf Urine Bacteria (<OCC) Urine Osmolality (300-1000) mosm/kg Ur Random Sodium mmol/L Ur Random Potassium mmol/L Complement C3 65.0 L (88.0-165.0) mg/dL Complement C4 24.8 (14.0-44.0) mg/dL HIV 1&2 Antibody Screen Negative (NEGATIVE) Blood Type Antibody Screen 05/21/18 05/21/18 05/21/18 Range/Units 08:55 08:55 07:38 WBC 15.8 H (4.8-10.8) K/uL RBC 2.58 L (3.80-5.20) Mil/uL Hgb 7.5 L (11.0-16.0) g/dL Hct 23.4 L (34.0-47.0) % MCV 90.8 (81.0-99.0) fL MCH 29.0 (27.0-31.0) pg MCHC 32.0 L (33.0-37.0) g/dL RDW 20.3 H (11.5-14.5) % Plt Count 51 L (130-400) K/uL MPV 13.1 H (7.2-11.7) fL Neut % (Auto) 88.3 H (50.0-75.0) % Lymph % (Auto) 3.2 L (20.0-40.0) % [place] % (Auto) 6.7 (0.0-10.0) % Eos % (Auto) 0.7 (0.0-4.0) % Baso % (Auto) 1.1 (0.0-2.0) % Neut # (Auto) 14.0 H (1.8-7.0) K/uL Lymph # (Auto) 0.5 L (1.0-4.3) K/uL [place] # (Auto) 1.1 H (0.0-0.8) K/uL Eos # (Auto) 0.1 (0.0-0.7) K/uL Baso # (Auto) 0.2 (0.0-0.2) K/uL Neutrophils % (Manual) 75 (50-75) % Band Neutrophils % 10 H (0-2) % Lymphocytes % (Manual) 3 L (20-40) % Monocytes % (Manual) 10 (0-10) % Metamyelocytes % 1 H (0-0) % Promyelocytes % 1 H (0-0) % Nucleated RBC % 6 H (0-0) % Platelet Estimate Decreased L (NORMAL) Large Platelets Present Giant Platelets Present Hypochromasia (manual) Moderate Poikilocytosis (manual Slight Anisocytosis (manual) Slight Microcytosis (manual) Slight Macrocytosis (manual) Slight Target Cells Moderate Tear Drop Cells Slight Ovalocytes Slight Fatmata Cells Slight PT (9.7-12.2) SECONDS INR APTT (21-34) SECONDS Sodium (132-148) mmol/L Potassium (3.6-5.2) mmol/L Chloride (98-107) mmol/L Carbon Dioxide (22-30) mmol/L Anion Gap (10-20) BUN (7-17) mg/dL Creatinine (0.7-1.2) mg/dL Est GFR ( Amer) Est GFR (Non-Af Amer) Random Glucose (65-105) mg/dL Serum Osmolality 309 H (272-300) mosm/kg Uric Acid (2.2-7.5) mg/dL Calcium (8.6-10.4) mg/dl Phosphorus (2.5-4.5) mg/dL Total Bilirubin (0.2-1.3) mg/dL AST (14-36) U/L ALT (9-52) U/L Alkaline Phosphatase (38-126) U/L Total Creatine Kinase (30-135) U/L Troponin I (0.00-0.120) ng/mL Total Protein (6.3-8.3) g/dL Albumin (3.5-5.0) g/dL Globulin (2.2-3.9) gm/dL Albumin/Globulin Ratio (1.0-2.1) 25-OH Vitamin D Total 22.1 L (30.0-100.0) NG/ML Urine Color (YELLOW) Urine Clarity (Clear) Urine pH (5.0-8.0) Ur Specific [place] (1.003-1.030) Urine Protein (NEGATIVE) mg/dL Urine Glucose (UA) (Normal) mg/dL Urine Ketones (NEGATIVE) mg/dL Urine Blood (NEGATIVE) Urine Nitrate (NEGATIVE) Urine Bilirubin (NEGATIVE) Urine Urobilinogen (0.2-1.0) mg/dL Ur Leukocyte Esterase (Negative) Leo/uL Urine WBC (Auto) (0-5) /hpf Urine RBC (Auto) (0-3) /hpf Urine WBC Clumps (Auto) (NONE) /hpf Ur Squamous Epith Cells (0-5) /hpf Urine Bacteria (<OCC) Urine Osmolality (300-1000) mosm/kg Ur Random Sodium mmol/L Ur Random Potassium mmol/L Complement C3 (88.0-165.0) mg/dL Complement C4 (14.0-44.0) mg/dL HIV 1&2 Antibody Screen (NEGATIVE) Blood Type Antibody Screen 05/20/18 05/20/18 05/20/18 Range/Units 22:43 22:43 22:43 WBC (4.8-10.8) K/uL RBC (3.80-5.20) Mil/uL Hgb (11.0-16.0) g/dL Hct (34.0-47.0) % MCV (81.0-99.0) fL MCH (27.0-31.0) pg MCHC (33.0-37.0) g/dL RDW (11.5-14.5) % Plt Count (130-400) K/uL MPV (7.2-11.7) fL Neut % (Auto) (50.0-75.0) % Lymph % (Auto) (20.0-40.0) % [place] % (Auto) (0.0-10.0) % Eos % (Auto) (0.0-4.0) % Baso % (Auto) (0.0-2.0) % Neut # (Auto) (1.8-7.0) K/uL Lymph # (Auto) (1.0-4.3) K/uL [place] # (Auto) (0.0-0.8) K/uL Eos # (Auto) (0.0-0.7) K/uL Baso # (Auto) (0.0-0.2) K/uL Neutrophils % (Manual) (50-75) % Band Neutrophils % (0-2) % Lymphocytes % (Manual) (20-40) % Monocytes % (Manual) (0-10) % Metamyelocytes % (0-0) % Promyelocytes % (0-0) % Nucleated RBC % (0-0) % Platelet Estimate (NORMAL) Large Platelets Giant Platelets Hypochromasia (manual) Poikilocytosis (manual Anisocytosis (manual) Microcytosis (manual) Macrocytosis (manual) Target Cells Tear Drop Cells Ovalocytes Fatmata Cells PT (9.7-12.2) SECONDS INR APTT (21-34) SECONDS Sodium (132-148) mmol/L Potassium (3.6-5.2) mmol/L Chloride (98-107) mmol/L Carbon Dioxide (22-30) mmol/L Anion Gap (10-20) BUN (7-17) mg/dL Creatinine (0.7-1.2) mg/dL Est GFR ( Amer) Est GFR (Non-Af Amer) Random Glucose (65-105) mg/dL Serum Osmolality (272-300) mosm/kg Uric Acid (2.2-7.5) mg/dL Calcium (8.6-10.4) mg/dl Phosphorus (2.5-4.5) mg/dL Total Bilirubin (0.2-1.3) mg/dL AST (14-36) U/L ALT (9-52) U/L Alkaline Phosphatase (38-126) U/L Total Creatine Kinase (30-135) U/L Troponin I (0.00-0.120) ng/mL Total Protein (6.3-8.3) g/dL Albumin (3.5-5.0) g/dL Globulin (2.2-3.9) gm/dL Albumin/Globulin Ratio (1.0-2.1) 25-OH Vitamin D Total (30.0-100.0) NG/ML Urine Color Yellow (YELLOW) Urine Clarity Hazy (Clear) Urine pH 5.0 (5.0-8.0) Ur Specific [place] 1.015 (1.003-1.030) Urine Protein 2+ H (NEGATIVE) mg/dL Urine Glucose (UA) Normal (Normal) mg/dL Urine Ketones Negative (NEGATIVE) mg/dL Urine Blood 3+ H (NEGATIVE) Urine Nitrate Negative (NEGATIVE) Urine Bilirubin Negative (NEGATIVE) Urine Urobilinogen Normal (0.2-1.0) mg/dL Ur Leukocyte Esterase 3+ H (Negative) Leo/uL Urine WBC (Auto) 374 H (0-5) /hpf Urine RBC (Auto) 79 H (0-3) /hpf Urine WBC Clumps (Auto) Many H (NONE) /hpf Ur Squamous Epith Cells 2 (0-5) /hpf Urine Bacteria Mod H (<OCC) Urine Osmolality 322 (300-1000) mosm/kg Ur Random Sodium 27 mmol/L Ur Random Potassium 19.8 mmol/L Complement C3 (88.0-165.0) mg/dL Complement C4 (14.0-44.0) mg/dL HIV 1&2 Antibody Screen (NEGATIVE) Blood Type Antibody Screen Laboratory Results - last 24 hr 05/20/18 05/20/18 05/20/18 22:43 22:43 22:43 WBC RBC Hgb Hct MCV MCH MCHC RDW Plt Count MPV Neut % (Auto) Lymph % (Auto) [place] % (Auto) Eos % (Auto) Baso % (Auto) Neut # (Auto) Lymph # (Auto) [place] # (Auto) Eos # (Auto) Baso # (Auto) Neutrophils % (Manual) Band Neutrophils % Lymphocytes % (Manual) Monocytes % (Manual) Metamyelocytes % Promyelocytes % Nucleated RBC % Platelet Estimate Large Platelets Giant Platelets Hypochromasia (manual) Poikilocytosis (manual Anisocytosis (manual) Microcytosis (manual) Macrocytosis (manual) Target Cells Tear Drop Cells Ovalocytes [place] Cells PT INR APTT Sodium Potassium Chloride Carbon Dioxide Anion Gap BUN Creatinine Est GFR ( Amer) Est GFR (Non-Af Amer) Random Glucose Serum Osmolality Uric Acid Calcium Phosphorus Total Bilirubin AST ALT Alkaline Phosphatase Total Creatine Kinase Troponin I Total Protein Albumin Globulin Albumin/Globulin Ratio 25-OH Vitamin D Total Urine Color Yellow Urine Clarity Hazy Urine pH 5.0 Ur Specific [place] 1.015 Urine Protein 2+ H Urine Glucose (UA) Normal Urine Ketones Negative Urine Blood 3+ H Urine Nitrate Negative Urine Bilirubin Negative Urine Urobilinogen Normal Ur Leukocyte Esterase 3+ H Urine WBC (Auto) 374 H Urine RBC (Auto) 79 H Urine WBC Clumps (Auto) Many H Ur Squamous Epith Cells 2 Urine Bacteria Mod H Urine Osmolality 322 Ur Random Sodium 27 Ur Random Potassium 19.8 Complement C3 Complement C4 HIV 1&2 Antibody Screen Blood Type Antibody Screen 05/21/18 05/21/18 05/21/18 07:38 08:55 08:55 WBC 15.8 H RBC 2.58 L Hgb 7.5 L Hct 23.4 L MCV 90.8 MCH 29.0 MCHC 32.0 L RDW 20.3 H Plt Count 51 L MPV 13.1 H Neut % (Auto) 88.3 H Lymph % (Auto) 3.2 L [place] % (Auto) 6.7 Eos % (Auto) 0.7 Baso % (Auto) 1.1 Neut # (Auto) 14.0 H Lymph # (Auto) 0.5 L [place] # (Auto) 1.1 H Eos # (Auto) 0.1 Baso # (Auto) 0.2 Neutrophils % (Manual) 75 Band Neutrophils % 10 H Lymphocytes % (Manual) 3 L Monocytes % (Manual) 10 Metamyelocytes % 1 H Promyelocytes % 1 H Nucleated RBC % 6 H Platelet Estimate Decreased L Large Platelets Present Giant Platelets Present Hypochromasia (manual) Moderate Poikilocytosis (manual Slight Anisocytosis (manual) Slight Microcytosis (manual) Slight Macrocytosis (manual) Slight Target Cells Moderate Tear Drop Cells Slight Ovalocytes Slight Fatmata Cells Slight PT INR APTT Sodium Potassium Chloride Carbon Dioxide Anion Gap BUN Creatinine Est GFR ( Amer) Est GFR (Non-Af Amer) Random Glucose Serum Osmolality 309 H Uric Acid Calcium Phosphorus Total Bilirubin AST ALT Alkaline Phosphatase Total Creatine Kinase Troponin I Total Protein Albumin Globulin Albumin/Globulin Ratio 25-OH Vitamin D Total 22.1 L Urine Color Urine Clarity Urine pH Ur Specific [place] Urine Protein Urine Glucose (UA) Urine Ketones Urine Blood Urine Nitrate Urine Bilirubin Urine Urobilinogen Ur Leukocyte Esterase Urine WBC (Auto) Urine RBC (Auto) Urine WBC Clumps (Auto) Ur Squamous Epith Cells Urine Bacteria Urine Osmolality Ur Random Sodium Ur Random Potassium Complement C3 Complement C4 HIV 1&2 Antibody Screen Blood Type Antibody Screen 05/21/18 05/21/18 05/21/18 08:55 08:55 08:55 WBC RBC Hgb Hct MCV MCH MCHC RDW Plt Count MPV Neut % (Auto) Lymph % (Auto) [place] % (Auto) Eos % (Auto) Baso % (Auto) Neut # (Auto) Lymph # (Auto) [place] # (Auto) Eos # (Auto) Baso # (Auto) Neutrophils % (Manual) Band Neutrophils % Lymphocytes % (Manual) Monocytes % (Manual) Metamyelocytes % Promyelocytes % Nucleated RBC % Platelet Estimate Large Platelets Giant Platelets Hypochromasia (manual) Poikilocytosis (manual Anisocytosis (manual) Microcytosis (manual) Macrocytosis (manual) Target Cells Tear Drop Cells Ovalocytes [place] Cells PT INR APTT Sodium Potassium Chloride Carbon Dioxide Anion Gap BUN Creatinine Est GFR ( Amer) Est GFR (Non-Af Amer) Random Glucose Serum Osmolality Uric Acid 14.7 H Calcium Phosphorus Total Bilirubin AST ALT Alkaline Phosphatase Total Creatine Kinase < 20 L Troponin I Total Protein Albumin Globulin Albumin/Globulin Ratio 25-OH Vitamin D Total Urine Color Urine Clarity Urine pH Ur Specific [place] Urine Protein Urine Glucose (UA) Urine Ketones Urine Blood Urine Nitrate Urine Bilirubin Urine Urobilinogen Ur Leukocyte Esterase Urine WBC (Auto) Urine RBC (Auto) Urine WBC Clumps (Auto) Ur Squamous Epith Cells Urine Bacteria Urine Osmolality Ur Random Sodium Ur Random Potassium Complement C3 65.0 L Complement C4 24.8 HIV 1&2 Antibody Screen Negative Blood Type Antibody Screen 05/21/18 05/21/18 05/21/18 08:55 09:52 09:52 WBC RBC Hgb Hct MCV MCH MCHC RDW Plt Count MPV Neut % (Auto) Lymph % (Auto) [place] % (Auto) Eos % (Auto) Baso % (Auto) Neut # (Auto) Lymph # (Auto) [place] # (Auto) Eos # (Auto) Baso # (Auto) Neutrophils % (Manual) Band Neutrophils % Lymphocytes % (Manual) Monocytes % (Manual) Metamyelocytes % Promyelocytes % Nucleated RBC % Platelet Estimate Large Platelets Giant Platelets Hypochromasia (manual) Poikilocytosis (manual Anisocytosis (manual) Microcytosis (manual) Macrocytosis (manual) Target Cells Tear Drop Cells Ovalocytes [place] Cells PT 19.5 H INR 1.8 APTT 34 Sodium 133 Potassium 4.8 Chloride 103 Carbon Dioxide 16 L Anion Gap 19 BUN 101 H* Creatinine 2.9 H Est GFR ( Amer) 20 Est GFR (Non-Af Amer) 16 Random Glucose 92 Serum Osmolality Uric Acid Calcium 8.6 Phosphorus 5.6 H Total Bilirubin 0.9 AST 16 ALT 40 Alkaline Phosphatase 95 Total Creatine Kinase Troponin I 0.0210 Total Protein 5.5 L Albumin 2.9 L D Globulin 2.6 Albumin/Globulin Ratio 1.1 25-OH Vitamin D Total Urine Color Urine Clarity Urine pH Ur Specific [place] Urine Protein Urine Glucose (UA) Urine Ketones Urine Blood Urine Nitrate Urine Bilirubin Urine Urobilinogen Ur Leukocyte Esterase Urine WBC (Auto) Urine RBC (Auto) Urine WBC Clumps (Auto) Ur Squamous Epith Cells Urine Bacteria Urine Osmolality Ur Random Sodium Ur Random Potassium Complement C3 Complement C4 HIV 1&2 Antibody Screen Blood Type A POSITIVE Antibody Screen Negative EKG/Cardiology Studies: Cardiology / EKG Studies 05/21/18 08:25 ELECTROCARDIOGRAM Stat Comment: Mode Of Transportation: Reason For Exam: cardiac Isolation: Contact Critical Care Progress Note - Nutrition Nutrition: Nutrition Category Date Time Status NPO Diet [DIET] Diets 05/21/18 Lunch Active Attending/Attestation - Attestation I have personally seen and examined this patient.: Yes I have fully participated in the care of the patient.: Yes I have reviewed all pertinent clinical information: Yes Notes (Text): 05/21/18 17:36 patient seen and examined in the intensive care unit. Transfuse packed RBCs CAT scan of the abdomen consistent with splenic necrosis with air Surgical consult obtained Case discussed with interventional radiology Continue antibiotics Monitor CBC NG tube feeding Continue ICU monitoring
[2018-05-21] MEDS: Ergocalciferol 50,000 Intl Units Cap PO SCH (11:56)
[2018-05-21] MEDS: Pantoprazole 40 mg Susp UD PO SCH (11:56)
--- NOTE | 2018-05-21 13:56 | RAD ---
Date of service: 05/21/2018 HISTORY: verify right PICC COMPARISON: 05/15/2018 FINDINGS: LUNGS: Patchy opacity right upper lobe, and at right base. Possible pneumonia. PLEURA: Probable very small bilateral pleural effusion. CARDIOVASCULAR: Normal heart size. NG tube extends to central abdomen.. Right PICC catheter terminates in the region of the superior vena cava. OSSEOUS STRUCTURES: No significant abnormalities. VISUALIZED UPPER ABDOMEN: Normal. OTHER FINDINGS: None. IMPRESSION: New right PICC catheter terminates in the region of superior vena cava. NG tube extends to central abdomen. Right upper and lower lung patchy opacities. Probable very small bilateral pleural effusion.
--- NOTE | 2018-05-21 14:00 | CARD ---
APPROVED REPORT Date of service: 05/21/2018 EXAM: Two-dimensional and M-mode echocardiogram with Doppler and color Doppler. Other Information Quality : GoodRhythm : INDICATION Pericardial Effusion 2D DIMENSIONS IVSd0.9 (0.7-1.1cm)LVDd3.8 (3.9-5.9cm) PWd1.2 (0.7-1.1cm)LA [id number] (18-58mL) LVDs2.6 (2.5-4.0cm)FS (%) 32.0 % LVEF (%)62.0 (>50%)LVEF (Neil's)65.06 % IVC0.00 cm M-Mode DIMENSIONS Left Atrium (MM)3.92 (2.5-4.0cm)IVSd1.53 (0.7-1.1cm) Aortic Root3.44 (2.2-3.7cm)LVDd4.89 (4.0-5.6cm) Aortic Cusp Exc.2.09 (1.5-2.0cm)PWd1.21 (0.7-1.1cm) FS (%) 36 %LVDs3.12 (2.0-3.8cm) LVEF (%)66 (>50%) Aortic Valve AI P 1/2 [id number] Mitral Valve MV E Ezyfdjqs75.1cm/sMV A Wruysleh985.6cm/sE/A ratio0.6 TDI Lateral E' Peak V8.93cm/sMedial E' Peak V10.42cm/sE/Lateral E'8.0 E/Medial E'6.8 Tricuspid Valve TR Peak [id number]/sTR Peak [id number] LEFT VENTRICLE The left ventricle is normal size. There is normal left ventricular wall thickness. The left ventricular function is normal. The left ventricular ejection fraction is within the normal range. 61% Septal motion paradoxical The left ventricular diastolic function is normal. No left ventricle thrombus noted on this study. There is no ventricular septal defect visualized. There is no left ventricular aneurysm. There is no mass noted in the left ventricle. RIGHT VENTRICLE The right ventricle is normal size. There is normal right ventricular wall thickness. The right ventricular systolic function is normal. ATRIA The left atrial volume index is mildly dilated. The right atrium size is normal. The interatrial septum is intact with no evidence for an atrial septal defect. AORTIC VALVE The aortic valve is normal in structure and function. Mild aortic regurgitation is present. There is no aortic valvular stenosis. There is no aortic valvular vegetation. MITRAL VALVE The mitral valve is normal in structure and function. There is no evidence of mitral valve prolapse. There is no mitral valve stenosis. There is no mitral valve regurgitation noted. TRICUSPID VALVE The tricuspid valve is normal in structure and function. There is no tricuspid valve regurgitation noted. There is no tricuspid valve prolapse or vegetation. There is no tricuspid valve stenosis. PULMONIC VALVE The pulmonary valve is normal in structure and function. There is no pulmonic valvular regurgitation. There is no pulmonic valvular stenosis. GREAT VESSELS The aortic root is normal in size. The ascending aorta is normal in size. The pulmonary artery is normal. The IVC is normal in size and collapses >50% with inspiration. PERICARDIAL EFFUSION A small pericardial effsuion is noted, mostlyu inferior to the LV. THre is no RA/RV collapse. PW doppler of mitral inflow does not demonstrate a signficant respiratory variation in velocity. No pleural effusion. <Conclusion> The left ventricular function is normal. Septal motion paradoxical Mild aortic regurgitation is present. The left atrial volume index is mildly dilated. A small pericardial effsuion is noted, mostlyu inferior to the LV. There is no RA/RV collapse. PW doppler of mitral inflow does not demonstrate a signficant respiratory variation in velocity.
--- NOTE | 2018-05-21 15:22 | CP.PCM.PN ---
Subjective - Date & Time of Evaluation Date of Evaluation: 05/21/18 Time of Evaluation: 15:18 - Subjective Subjective: Nephrology Consultation Note: Assessment: critical Acute Kidney Injury (N17.9) likely due to ATN/sepsis with UTI, low BP, pre-renal state Metabolic acidosis, Hyponatremia Hypertensive Chronic Kidney Disease (I12.9) Chronic Kidney Disease (N18.3) Stage 3 with ? 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 Maintain hemodynamics stable. Avoid hypotension. Patient not on ACEI/ARB due to recent SOFIA Monitor Input/Output, daily weights and renal function with basic metabolic panel add sodium bicarb 1300 mg bid IV albumin 100 gram given asked RN for guzmán and check bladder pressure: 16 cm H2O anemia management as per heme: check TSAT, started iron and MVI. PRBC 2 unit 05/21/18. will add epogen as well as d/w heme started weekly ergocalciferol pt planned for TPN initiation today evening work up ordered as: urine analysis, spot protein/creatinine, albumin/creatinine ratio, urine Na/K/Cl, Osmol, serum Osmol C3, C4, ANCA (MPO and NV-3), HIV serology, IgG4 25-OH vitamin D, iPTH, phosphorus level. Dose meds/antibiotics for reduced GFR. Avoid fleets enema/magnesium based laxatives. Avoid nephrotoxins/NSAIDs/ iodinated contrast (unless needed emergently) Glycemic control Further work up/management as per primary team Thanks for allowing me to participate in care of your patient. Will follow patient with you. Please call if any Qs. d/w family bedside Dr Espinoza Wylie Office: [phone] Chief Complaint; pain abdomen Reason for consult: Acute Kidney Injury HPI: Pt is a 67 F with hx of HTN,myelofibrosis admitted recently in april with right flank pain, right hydronephrosis/pyelonephritis and Ureteral stricture s/p stent, hospital course was complicated by atrial fibrillation, right lower extremity DVT on anticoagulant developed Splenic hemorrhage s/p splenic artery embolization, hence systemic a/c was stopped. pt also with hepatosplenomegaly and extensive varices, anemia/thrombocytopenia admitted with sepsis with kelbsiella due to UTI pt also with CKD stage 3 with baseline cr 1.8-2.0 since hospitalization with AKIs Denies OTC/herbal meds or NSAIDs No recent iodinated contrast exposure. Noted obvious episodes of low BP. son bedside and helped in interpretations pt not good historian. c/o left abdomen pain (severe) ROS: Cardiovascular: No chest pain. Pulmonary: No shortness of breath Gastrointestinal: c/o abdominal pain No nausea. No vomiting. Genitourinary: no pain while urinating. Denies blood in urine. All other negative except as mentioned in HPI. limited ROS. pt with poor oral intake and NPO now Physical Examination: General Appearance: uncomfortable, in no acute respiratory distress, co- operative . Vitals reviewed and noted as below Head; Atraumatic, normocephalic ENT: no ulcers no thrush. Tongue is midline. Oropharynx: no rash or ulcers. EYES: Pupils are equal, round and reactive to light accommodation. Eye muscles and extraocular movement intact. Sclera is anicteric. Neck; supple no lymphadenopathy, no thyromegaly or bruit Lungs: Increased respiratory rate/effort. Breath sounds bilateral equal and clear Heart: Incresaed rate. s1s2 normal. No rub or gallop. Extremities: no edema. No varicose veins Neurological: Patient is alert, awake and oriented to person, place and time. No focal deficit. Strength bilateral appropriate and equal Skin: Warm and dry. Normal turgor. No rash. Palpitation: Normal elasticity for age Abdomen: Abdomen is soft. Bowel sounds +. There is marked LUQ abdominal tenderness with guarding no rigidity no organomegaly Psych: limited insight and normal affect/mood MSK: no joint tenderness or swelling. Digits and nails normal, no deformity : kidney or bladder not palpable Labs/imaging reviewed. Past medical history, past surgical history, family history, social history, allergy reviewed and noted as below Family hx: no hx of CKD. Rest non-contributory echo moderate pHTN, normal LVEF UA 2+ protein 3+ blood TRACEY and Hep B/C neg Objective - Vital Signs/Intake and Output Vital Signs (last 24 hours): Temp Pulse Resp BP Pulse Ox 97.2 F L 110 H 24 100/52 L 98 10//18 13:17 05/21/18 13:17 05/21/18 13:17 05/21/18 13:17 05/21/18 13:17 Intake and Output: 05/21/18 05/21/18 06:59 18:59 Intake Total 1050 0 Output Total 0 Balance 1050 0 - Medications Medications: Current Medications Acetaminophen (Tylenol 325mg Tab) 650 mg PO Q6 PRN PRN Reason: Fever >100.4 F Last Admin: 05/19/18 19:00 Dose: 650 mg Albuterol/Ipratropium (Duoneb 3 Mg/0.5 Mg (3 Ml) Ud) 3 ml INH RQ6 [facility] Last Admin: 05/21/18 13:34 Dose: 3 ml Enoxaparin Sodium (Lovenox) 30 mg SC DAILY [facility] Last Admin: 05/21/18 10:40 Dose: 30 mg Ergocalciferol (Drisdol 50,000 Intl Units Cap) 1 cap PO Q7D [facility] Last Admin: 05/21/18 11:56 Dose: 1 cap Ferrous Gluconate (Fergon) 324 mg PO TID [facility] Hydroxyurea (Hydrea) 500 mg PO BID [facility] Last Admin: 05/15/18 10:00 Dose: 500 mg Ceftazidime/Avibactam 0.94 gm/ (Sodium Chloride) 100 mls @ 50 mls/hr IV Q12H [facility]; Protocol Last Admin: 05/21/18 05:49 Dose: 50 mls/hr Multivitamins/Vitamin C 10 ml/Chromium/Copper/Manganese/Zinc 1 ml/ Amino Acids 1,011 mls @ 42 mls/hr IV .Q24H ONE Stop: 05/22/18 17:59 Pantoprazole Sodium (Protonix Susp) 40 mg PO DAILY [facility] Last Admin: 05/21/18 11:56 Dose: 40 mg Sodium Bicarbonate (Sodium Bicarbonate Tab) 1,300 mg PO BID [facility] Last Admin: 05/21/18 10:41 Dose: 1,300 mg Vitamin B Complex/Vit C/Folic Acid (Nephro-Charlie) 1 tab PO 0800 [facility] - Labs Labs: 05/21/18 07:38 05/21/18 08:55 PT 19.5 SECONDS (9.7-12.2) H 10/03/18 09:52 INR 1.8 05/21/18 09:52 APTT 34 SECONDS (21-34) 05/21/18 09:52
[2018-05-21] MEDS: metroNIDAZOLE IV 500 mg/100 ml 500 MG/100 ML BAG IVPB SCH (16:25)
--- NOTE | 2018-05-21 16:34 | CP.PCM.PN ---
Subjective - Date & Time of Evaluation Date of Evaluation: 05/21/18 Time of Evaluation: 16:21 - Subjective Subjective: General Surgery: Dr Ramirez (Dr Clifton Covering) Pt evaluated by Dr Clifton who was covering for Dr Ramirez today. Dr Guzmán rn returning this evening to evaluate pt. Pt S&E. Remains in ICU. Currently being transfused 1 unit pRBC for HgB of 7.6. Tachy to 120s, MAPs 55-65. No plan for platelet infusion currently. Family is bedside. Discussed options and best plan of treatment moving forward. Pt does not require immediate intervention but most certainly may need splenectomy either this admission vs elective basis. Will defer this plan to Dr Ramirez's return Objective - Vital Signs/Intake and Output Vital Signs (last 24 hours): Temp Pulse Resp BP Pulse Ox 97.2 F L 111 H 30 H 109/60 97 05/21/18 13:17 05/21/18 15:37 05/21/18 15:37 05/21/18 15:37 05/21/18 15:37 Intake and Output: 05/21/18 05/21/18 06:59 18:59 Intake Total 1050 0 Output Total 0 Balance 1050 0 - Medications Medications: Current Medications Acetaminophen (Tylenol 325mg Tab) 650 mg PO Q6 PRN PRN Reason: Fever >100.4 F Last Admin: 05/19/18 19:00 Dose: 650 mg Albuterol/Ipratropium (Duoneb 3 Mg/0.5 Mg (3 Ml) Ud) 3 ml INH RQ6 [facility] Last Admin: 05/21/18 13:34 Dose: 3 ml Enoxaparin Sodium (Lovenox) 30 mg SC DAILY [facility] Last Admin: 05/21/18 10:40 Dose: 30 mg Epoetin Koby (Procrit) 8,000 unit SC TTS [facility] Ergocalciferol (Drisdol 50,000 Intl Units Cap) 1 cap PO Q7D [facility] Last Admin: 05/21/18 11:56 Dose: 1 cap Ferrous Gluconate (Fergon) 324 mg PO TID [facility] Last Admin: 05/21/18 15:59 Dose: 324 mg Hydroxyurea (Hydrea) 500 mg PO BID [facility] Last Admin: 05/15/18 10:00 Dose: 500 mg Ceftazidime/Avibactam 0.94 gm/ (Sodium Chloride) 100 mls @ 50 mls/hr IV Q12H [facility]; Protocol Last Admin: 05/21/18 05:49 Dose: 50 mls/hr Multivitamins/Vitamin C 10 ml/Chromium/Copper/Manganese/Zinc 1 ml/ Parenteral Electrolytes 20 ml/ Amino Acids 1,031 mls @ 42 mls/hr IV .Q24H ONE Stop: 05/22/18 17:59 Metronidazole (Flagyl) 500 mg in 100 mls @ 100 mls/hr IVPB Q8H [facility]; Protocol Pantoprazole Sodium (Protonix Susp) 40 mg PO DAILY [facility] Last Admin: 05/21/18 11:56 Dose: 40 mg Sodium Bicarbonate (Sodium Bicarbonate Tab) 1,300 mg PO BID [facility] Last Admin: 05/21/18 10:41 Dose: 1,300 mg Vitamin B Complex/Vit C/Folic Acid (Nephro-Charlie) 1 tab PO 0800 [facility] - Labs Labs: 05/21/18 07:38 05/21/18 08:55 PT 19.5 SECONDS (9.7-12.2) H 05/21/18 09:52 INR 1.8 05/21/18 09:52 APTT 34 SECONDS (21-34) 05/21/18 09:52 - Constitutional Appears: No Acute Distress - Respiratory Exam Respiratory Exam: absent: Respiratory Distress - Cardiovascular Exam Cardiovascular Exam: Tachycardia (110-120) - GI/Abdominal Exam GI & Abdominal Exam: Distended, Firm, Soft, Tenderness (LUQ) - Extremities Exam Extremities Exam: absent: Pedal Edema - Neurological Exam Neurological Exam: Alert, Awake - Psychiatric Exam Psychiatric exam: Normal Affect, Normal Mood Assessment and Plan - Assessment and Plan (Free Text) Assessment: 67F with enlarging splenomegaly and anemia s/p IR embolization Plan: please see plan above no need for emergent surgical intervention transfuse PRN will d/w Dr Ramirez any plans for intervention this admission further recs to follow [place], PGY4
[2018-05-21] MEDS ORDERED: PPN # 1 IV ONE (18:00)
--- NOTE | 2018-05-21 21:16 | CP.PCM.PN ---
Subjective - Date & Time of Evaluation Date of Evaluation: 05/21/18 Time of Evaluation: 11:30 - Subjective Subjective: clinically same Objective - Vital Signs/Intake and Output Vital Signs (last 24 hours): Temp Pulse Resp BP Pulse Ox 98.4 F 113 H 30 H 110/62 97 05/21/18 20:00 05/21/18 20:01 05/21/18 20:01 05/21/18 20:01 05/21/18 20:01 Intake and Output: 05/21/18 05/22/18 18:59 06:59 Intake Total 847 100 Output Total 375 35 Balance 472 65 - Medications Medications: Current Medications Acetaminophen (Tylenol 325mg Tab) 650 mg PO Q6 PRN PRN Reason: Fever >100.4 F Last Admin: 05/19/18 19:00 Dose: 650 mg Albuterol/Ipratropium (Duoneb 3 Mg/0.5 Mg (3 Ml) Ud) 3 ml INH RQ6 [facility] Last Admin: 05/21/18 19:23 Dose: Not Given Enoxaparin Sodium (Lovenox) 30 mg SC DAILY [facility] Last Admin: 05/21/18 10:40 Dose: 30 mg Epoetin Koby (Procrit) 8,000 unit SC TTS [facility] Ergocalciferol (Drisdol 50,000 Intl Units Cap) 1 cap PO Q7D [facility] Last Admin: 05/21/18 11:56 Dose: 1 cap Ferrous Gluconate (Fergon) 324 mg PO TID [facility] Last Admin: 05/21/18 18:48 Dose: 324 mg Hydroxyurea (Hydrea) 500 mg PO BID [facility] Last Admin: 05/15/18 10:00 Dose: 500 mg Ceftazidime/Avibactam 0.94 gm/ (Sodium Chloride) 100 mls @ 50 mls/hr IV Q12H [facility]; Protocol Last Admin: 05/21/18 18:08 Dose: 50 mls/hr Multivitamins/Vitamin C 10 ml/Chromium/Copper/Manganese/Zinc 1 ml/ Parenteral Electrolytes 20 ml/ Amino Acids 1,031 mls @ 42 mls/hr IV .Q24H ONE Stop: 05/22/18 17:59 Last Admin: 05/21/18 17:35 Dose: 42 mls/hr Metronidazole (Flagyl) 500 mg in 100 mls @ 100 mls/hr IVPB Q8H [facility]; Protocol Last Admin: 05/21/18 16:25 Dose: 100 mls/hr Pantoprazole Sodium (Protonix Susp) 40 mg PO DAILY [facility] Last Admin: 05/21/18 11:56 Dose: 40 mg Sodium Bicarbonate (Sodium Bicarbonate Tab) 1,300 mg PO BID [facility] Last Admin: 05/21/18 18:08 Dose: 1,300 mg Vitamin B Complex/Vit C/Folic Acid (Nephro-Charlie) 1 tab PO 0800 [facility] - Labs Labs: 05/21/18 07:38 05/21/18 08:55 PT 19.5 SECONDS (9.7-12.2) H 05/21/18 09:52 INR 1.8 05/21/18 09:52 APTT 34 SECONDS (21-34) 05/21/18 09:52 - Constitutional Appears: Non-toxic, No Acute Distress - Head Exam Head Exam: ATRAUMATIC - Eye Exam Eye Exam: EOMI, Normal appearance - ENT Exam ENT Exam: Mucous Membranes Moist, Normal Exam - Neck Exam Neck Exam: Normal Inspection - Respiratory Exam Respiratory Exam: Decreased Breath Sounds - Cardiovascular Exam Cardiovascular Exam: +S1, +S2 - GI/Abdominal Exam GI & Abdominal Exam: Tenderness, Diminished Bowel Sounds - Rectal Exam Rectal Exam: Deferred Assessment and Plan (1) Abdominal pain Status: Acute (2) Anemia Status: Acute (3) Atrial fibrillation, new onset Status: Acute (4) CHF (congestive heart failure) Status: Acute (5) DVT (deep venous thrombosis) Status: Acute (6) Elevated brain natriuretic peptide (BNP) level Status: Acute (7) Hepatosplenomegaly Status: Acute (8) Hydronephrosis, right Status: Acute (9) Leucocytosis Status: Acute (10) Myelofibrosis Status: Acute (11) Portal vein thrombosis Status: Acute (12) Prophylactic measure Status: Acute (13) Pyelonephritis Status: Acute (14) Pyelonephritis due to Escherichia coli Status: Acute (15) Renal insufficiency Status: Acute (16) Spleen hematoma Status: Acute (17) Splenic hemorrhage Status: Acute (18) Thrombocytopenia Status: Acute (19) UTI (urinary tract infection) Status: Acute (20) Varices of other sites Status: Acute - Assessment and Plan (Free Text) Plan: Patient seen and examined at bedside Events noted Antibiotics IV fluids DVT/GI prophylaxis Nebulizers Monitor input and output NG tube placed Surgical consult
--- NOTE | 2018-05-21 22:37 | CP.PCM.PN ---
Subjective - Date & Time of Evaluation Date of Evaluation: 05/21/18 Time of Evaluation: 10:30 - Subjective Subjective: Patient examined at bedside. States she is not feeling too well. Admits to left sided abdominal pain. Denies fever, chills, chest pain, shortness of breath. CCU Objective - Vital Signs / Intake & Output Vital Signs (Last 4 hours): Vital Signs Temp Pulse Resp BP Pulse Ox 05/21/18 10:46 111 H 32 H 106/57 L 98 05/21/18 10:17 112 H 29 H 100/57 L 98 05/21/18 10:00 112 H 28 H 98 05/21/18 08:33 109 H 25 H 99/57 L 99 05/21/18 08:00 97.9 F 110 H 31 H 99 Intake and Output (Last 8hrs): Intake & Output 05/20/18 05/21/18 05/21/18 22:59 06:59 14:59 Intake Total 1300 100 Output Total 50 Balance 1250 100 Weight 199 lb 3.2 oz Intake: Intake, IV Amount 200 100 Left Wrist 200 100 Oral 1100 Output: Urine 50 Urethral (Addison) 50 - Physical Exam Head: Positive for: Atraumatic, Normocephalic Pupils: Positive for: PERRL Extroacular Muscles: Positive for: EOMI Conjunctiva: Positive for: Normal Ears: Positive for: Normal Mouth: Positive for: Moist Mucous Membranes Nose (External): Positive for: Atraumatic Neck: Positive for: Normal Range of Motion Respiratory/Chest: Positive for: Good Air Exchange, Rhonchi. Negative for: Respiratory Distress Cardiovascular: Positive for: Regular Rate and Rhythm, Normal S1, S2 Abdomen: Positive for: Tenderness (mild tenderness in LUQ), Distention. Negative for: Peritoneal Signs, Rebound Upper Extremity: Positive for: Normal Inspection. Negative for: Cyanosis, Edema Lower Extremity: Positive for: Normal Inspection. Negative for: Edema, CALF TENDERNESS Neurological: Positive for: GCS=15, CN II-XII Intact, Speech Normal Skin: Positive for: Dry, Normal Color. Negative for: Rashes Psychiatric: Positive for: Alert, Oriented x 3 Objective - Vital Signs/Intake and Output Vital Signs (last 24 hours): Temp Pulse Resp BP Pulse Ox 98.5 F 112 H 28 H 113/66 98 05/21/18 20:55 05/21/18 21:00 05/21/18 21:00 05/21/18 20:56 05/21/18 21:00 Intake and Output: 05/21/18 05/22/18 18:59 06:59 Intake Total 847 467 Output Total 375 135 Balance 472 332 - Medications Medications: Current Medications Acetaminophen (Tylenol 325mg Tab) 650 mg PO Q6 PRN PRN Reason: Fever >100.4 F Last Admin: 05/19/18 19:00 Dose: 650 mg Albuterol/Ipratropium (Duoneb 3 Mg/0.5 Mg (3 Ml) Ud) 3 ml INH RQ6 [facility] Last Admin: 05/21/18 19:23 Dose: Not Given Enoxaparin Sodium (Lovenox) 30 mg SC DAILY [facility] Last Admin: 05/21/18 10:40 Dose: 30 mg Epoetin Koby (Procrit) 8,000 unit SC TTS [facility] Ergocalciferol (Drisdol 50,000 Intl Units Cap) 1 cap PO Q7D [facility] Last Admin: 05/21/18 11:56 Dose: 1 cap Ferrous Gluconate (Fergon) 324 mg PO TID [facility] Last Admin: 05/21/18 18:48 Dose: 324 mg Hydroxyurea (Hydrea) 500 mg PO BID [facility] Last Admin: 05/15/18 10:00 Dose: 500 mg Ceftazidime/Avibactam 0.94 gm/ (Sodium Chloride) 100 mls @ 50 mls/hr IV Q12H [facility]; Protocol Last Admin: 05/21/18 18:08 Dose: 50 mls/hr Multivitamins/Vitamin C 10 ml/Chromium/Copper/Manganese/Zinc 1 ml/ Parenteral Electrolytes 20 ml/ Amino Acids 1,031 mls @ 42 mls/hr IV .Q24H ONE Stop: 05/22/18 17:59 Last Admin: 05/21/18 17:35 Dose: 42 mls/hr Metronidazole (Flagyl) 500 mg in 100 mls @ 100 mls/hr IVPB Q8H [facility]; Protocol Last Admin: 05/21/18 16:25 Dose: 100 mls/hr Pantoprazole Sodium (Protonix Susp) 40 mg PO DAILY [facility] Last Admin: 05/21/18 11:56 Dose: 40 mg Sodium Bicarbonate (Sodium Bicarbonate Tab) 1,300 mg PO BID [facility] Last Admin: 05/21/18 18:08 Dose: 1,300 mg Vitamin B Complex/Vit C/Folic Acid (Nephro-Charlie) 1 tab PO 0800 [facility] - Labs Labs: 05/21/18 07:38 05/21/18 08:55 PT 19.5 SECONDS (9.7-12.2) H 05/21/18 09:52 INR 1.8 05/21/18 09:52 APTT 34 SECONDS (21-34) 05/21/18 09:52 Assessment and Plan - Assessment and Plan (Free Text) Assessment: 67 year old female with a PMHx of myelofibrosis, HTN, renal insufficiency admitted with fever and UTI. 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 On previous admission patient had splenic embolization. Plan: Neuro: - AAO x3 Pulm: - Nasal cannula as tolerated - Maintain SPO2 > 92% - Duonebs 3 ml INH RQ6 CV: - Currently hemodynamically stable - Eliquis held 2/2 acute hemorrhagic process emanating from the spleen - ECHO from previous admission showed normal left ventricle systolic function. EF 65-70%. Moderate pulmonary HTN. - Dopplers showed acute thrombosis of right gastrocnemius vein with severe reduction of venous return. - Abd/pelvis CT shows small left pleural effusion, minimal pericardial effusion - Followup repeat ECHO GI: - s/p IR splenic artery embolization - 05/[address] shows large infarcted spleen predominantly liquified with gas and fluid. Suspicion for hemorrhage into infarcted spleen. - Pepcid 20mg PO daily Renal: - SOFIA - UA shows 2+ protein, 3+ blood - Monitor I and O - Replete electrolytes as needed - Urology Dr Flor Irvin consulted. Appreciate recs. - Nephrology Dr. Wylie consulted. Recs appreciated. ID: - 05/17 BCx show NG after 4 days - Tygacil 100 mg given - ID Dr. Jackson consulted. Recs appreciated. - Avycaz 0.94 g IV q12h (started 05/15) Heme/Onc - Hx of myelofibrosis with chronic leukocytosis - Dr. Mcbride consulted. Recs appreciated. - Holding Hydrea, Jakafi - 2 units pRBCs given - Ferrous gluconate 324 mg PO TID Endo: - Maintain euglycemia PPX: Pepcid 20 mg PO daily, Lovenox 30 mg SC daily
--- NOTE | 2018-05-21 23:09 | CP.PCM.PN ---
Subjective - Date & Time of Evaluation Date of Evaluation: 05/21/18 Time of Evaluation: 19:30 - Subjective Subjective: INFECTIOUS DISEASE PROGRESS NOTES JANY PATTERSON MD, FACP 05/21/2018 CHART REVIEWED EXAMINE NOTED CASE REVIEWED, AGAIN BEING TRANSFUSED-2 ANEMIA, BLEEDING, POSSIBLE INTO HER SPLEEN. - s/p IR splenic artery embolization - 05/[address] shows large infarcted spleen predominantly liquified with gas and fluid. Suspicion for hemorrhage into infarcted spleen. FLAGYL ADDED TO COVER FOR POSSIBLE ANEROBES MAY NEED SURGICAL REMOVAL IF SHE CAN TOLERATE THE SURGERY, DR RUIZ TO [place]. PROGNOSIS IF GUARDED. JANY PATTERSON MD, FACP Objective - Vital Signs/Intake and Output Vital Signs (last 24 hours): Temp Pulse Resp BP Pulse Ox 98.5 F 112 H 28 H 113/66 98 05/21/18 20:55 05/21/18 21:00 05/21/18 21:00 05/21/18 20:56 05/21/18 21:00 Intake and Output: 05/21/18 05/22/18 18:59 06:59 Intake Total 847 467 Output Total 375 135 Balance 472 332 - Medications Medications: Current Medications Acetaminophen (Tylenol 325mg Tab) 650 mg PO Q6 PRN PRN Reason: Fever >100.4 F Last Admin: 05/19/18 19:00 Dose: 650 mg Albuterol/Ipratropium (Duoneb 3 Mg/0.5 Mg (3 Ml) Ud) 3 ml INH RQ6 [facility] Last Admin: 05/21/18 19:23 Dose: Not Given Enoxaparin Sodium (Lovenox) 30 mg SC DAILY [facility] Last Admin: 05/21/18 10:40 Dose: 30 mg Epoetin Koby (Procrit) 8,000 unit SC TTS [facility] Ergocalciferol (Drisdol 50,000 Intl Units Cap) 1 cap PO Q7D [facility] Last Admin: 05/21/18 11:56 Dose: 1 cap Ferrous Gluconate (Fergon) 324 mg PO TID [facility] Last Admin: 05/21/18 18:48 Dose: 324 mg Hydroxyurea (Hydrea) 500 mg PO BID [facility] Last Admin: 05/15/18 10:00 Dose: 500 mg Ceftazidime/Avibactam 0.94 gm/ (Sodium Chloride) 100 mls @ 50 mls/hr IV Q12H [facility]; Protocol Last Admin: 05/21/18 18:08 Dose: 50 mls/hr Multivitamins/Vitamin C 10 ml/Chromium/Copper/Manganese/Zinc 1 ml/ Parenteral Electrolytes 20 ml/ Amino Acids 1,031 mls @ 42 mls/hr IV .Q24H ONE Stop: 05/22/18 17:59 Last Admin: 05/21/18 17:35 Dose: 42 mls/hr Metronidazole (Flagyl) 500 mg in 100 mls @ 100 mls/hr IVPB Q8H [facility]; Protocol Last Admin: 05/21/18 16:25 Dose: 100 mls/hr Pantoprazole Sodium (Protonix Susp) 40 mg PO DAILY [facility] Last Admin: 05/21/18 11:56 Dose: 40 mg Sodium Bicarbonate (Sodium Bicarbonate Tab) 1,300 mg PO BID [facility] Last Admin: 05/21/18 18:08 Dose: 1,300 mg Vitamin B Complex/Vit C/Folic Acid (Nephro-Charlie) 1 tab PO 0800 [facility] - Labs Labs: 05/21/18 07:38 05/21/18 08:55 PT 19.5 SECONDS (9.7-12.2) H 05/21/18 09:52 INR 1.8 05/21/18 09:52 APTT 34 SECONDS (21-34) 05/21/18 09:52
[2018-05-21 23:15] LABS: MEAN CELL VOLUME 89.3 fL (81.0-99.0); MEAN CORPUSCULAR HEMOGLOBIN 29.8 pg (27.0-31.0); MEAN CORPUSCULAR HGB CONC 33.3 g/dL (33.0-37.0); RBC 3.03 Mil/uL (3.80-5.20); RED CELL DISTRIBUTION WIDTH 18.3 % (11.5-14.5); WHITE BLOOD COUNT 15.1 K/uL (4.8-10.8)
[2018-05-22] MEDS: metroNIDAZOLE IV 500 mg/100 ml 500 MG/100 ML BAG IVPB SCH ×3 (01:00→17:46)
--- NOTE | 2018-05-22 01:04 | CP.PCM.PN ---
Subjective - Date & Time of Evaluation Date of Evaluation: 05/17/18 Time of Evaluation: 12:00 - Subjective Subjective: Feels weak. Objective - Vital Signs/Intake and Output Vital Signs (last 24 hours): Temp Pulse Resp BP Pulse Ox 98.5 F 113 H 27 H 115/59 L 94 L 05/22/18 00:00 05/22/18 00:00 05/22/18 00:00 05/22/18 00:00 05/22/18 00:00 Intake and Output: 05/21/18 05/22/18 18:59 06:59 Intake Total 847 593 Output Total 375 265 Balance 472 328 - Medications Medications: Current Medications Acetaminophen (Tylenol 325mg Tab) 650 mg PO Q6 PRN PRN Reason: Fever >100.4 F Last Admin: 05/19/18 19:00 Dose: 650 mg Albuterol/Ipratropium (Duoneb 3 Mg/0.5 Mg (3 Ml) Ud) 3 ml INH RQ6 [facility] Last Admin: 05/21/18 19:23 Dose: Not Given Enoxaparin Sodium (Lovenox) 30 mg SC DAILY [facility] Last Admin: 05/21/18 10:40 Dose: 30 mg Epoetin Koby (Procrit) 8,000 unit SC TTS [facility] Ergocalciferol (Drisdol 50,000 Intl Units Cap) 1 cap PO Q7D [facility] Last Admin: 05/21/18 11:56 Dose: 1 cap Ferrous Gluconate (Fergon) 324 mg PO TID [facility] Last Admin: 05/21/18 18:48 Dose: 324 mg Hydroxyurea (Hydrea) 500 mg PO BID [facility] Last Admin: 05/15/18 10:00 Dose: 500 mg Ceftazidime/Avibactam 0.94 gm/ (Sodium Chloride) 100 mls @ 50 mls/hr IV Q12H [facility]; Protocol Last Admin: 05/21/18 18:08 Dose: 50 mls/hr Multivitamins/Vitamin C 10 ml/Chromium/Copper/Manganese/Zinc 1 ml/ Parenteral Electrolytes 20 ml/ Amino Acids 1,031 mls @ 42 mls/hr IV .Q24H ONE Stop: 05/22/18 17:59 Last Admin: 05/21/18 17:35 Dose: 42 mls/hr Metronidazole (Flagyl) 500 mg in 100 mls @ 100 mls/hr IVPB Q8H [facility]; Protocol Last Admin: 05/22/18 01:00 Dose: 100 mls/hr Pantoprazole Sodium (Protonix Susp) 40 mg PO DAILY [facility] Last Admin: 05/21/18 11:56 Dose: 40 mg Sodium Bicarbonate (Sodium Bicarbonate Tab) 1,300 mg PO BID [facility] Last Admin: 05/21/18 18:08 Dose: 1,300 mg Vitamin B Complex/Vit C/Folic Acid (Nephro-Charlie) 1 tab PO 0800 [facility] - Labs Labs: 05/21/18 23:12 05/21/18 08:55 PT 19.5 SECONDS (9.7-12.2) H 05/21/18 09:52 INR 1.8 05/21/18 09:52 APTT 34 SECONDS (21-34) 05/21/18 09:52 - Head Exam Head Exam: ATRAUMATIC - Eye Exam Eye Exam: Normal appearance - ENT Exam ENT Exam: Mucous Membranes Dry - Respiratory Exam Respiratory Exam: NORMAL BREATHING PATTERN - Cardiovascular Exam Cardiovascular Exam: +S1, +S2 - GI/Abdominal Exam GI & Abdominal Exam: Normal Bowel Sounds Assessment and Plan (1) Thrombocytopenia Assessment & Plan: 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
--- NOTE | 2018-05-22 01:06 | CP.PCM.PN ---
Subjective - Date & Time of Evaluation Date of Evaluation: 05/19/18 Time of Evaluation: 20:00 - Subjective Subjective: Fatigued. Objective - Vital Signs/Intake and Output Vital Signs (last 24 hours): Temp Pulse Resp BP Pulse Ox 98.5 F 113 H 27 H 115/59 L 94 L 05/22/18 00:00 05/22/18 00:00 05/22/18 00:00 05/22/18 00:00 05/22/18 00:00 Intake and Output: 05/21/18 05/22/18 18:59 06:59 Intake Total 847 593 Output Total 375 265 Balance 472 328 - Medications Medications: Current Medications Acetaminophen (Tylenol 325mg Tab) 650 mg PO Q6 PRN PRN Reason: Fever >100.4 F Last Admin: 05/19/18 19:00 Dose: 650 mg Albuterol/Ipratropium (Duoneb 3 Mg/0.5 Mg (3 Ml) Ud) 3 ml INH RQ6 [facility] Last Admin: 05/21/18 19:23 Dose: Not Given Enoxaparin Sodium (Lovenox) 30 mg SC DAILY [facility] Last Admin: 05/21/18 10:40 Dose: 30 mg Epoetin Koby (Procrit) 8,000 unit SC TTS [facility] Ergocalciferol (Drisdol 50,000 Intl Units Cap) 1 cap PO Q7D [facility] Last Admin: 05/21/18 11:56 Dose: 1 cap Ferrous Gluconate (Fergon) 324 mg PO TID [facility] Last Admin: 05/21/18 18:48 Dose: 324 mg Hydroxyurea (Hydrea) 500 mg PO BID [facility] Last Admin: 05/15/18 10:00 Dose: 500 mg Ceftazidime/Avibactam 0.94 gm/ (Sodium Chloride) 100 mls @ 50 mls/hr IV Q12H [facility]; Protocol Last Admin: 05/21/18 18:08 Dose: 50 mls/hr Multivitamins/Vitamin C 10 ml/Chromium/Copper/Manganese/Zinc 1 ml/ Parenteral Electrolytes 20 ml/ Amino Acids 1,031 mls @ 42 mls/hr IV .Q24H ONE Stop: 05/22/18 17:59 Last Admin: 05/21/18 17:35 Dose: 42 mls/hr Metronidazole (Flagyl) 500 mg in 100 mls @ 100 mls/hr IVPB Q8H [facility]; Protocol Last Admin: 05/22/18 01:00 Dose: 100 mls/hr Pantoprazole Sodium (Protonix Susp) 40 mg PO DAILY [facility] Last Admin: 05/21/18 11:56 Dose: 40 mg Sodium Bicarbonate (Sodium Bicarbonate Tab) 1,300 mg PO BID [facility] Last Admin: 05/21/18 18:08 Dose: 1,300 mg Vitamin B Complex/Vit C/Folic Acid (Nephro-Charlie) 1 tab PO 0800 [facility] - Labs Labs: 05/21/18 23:12 05/21/18 08:55 PT 19.5 SECONDS (9.7-12.2) H 05/21/18 09:52 INR 1.8 05/21/18 09:52 APTT 34 SECONDS (21-34) 05/21/18 09:52 - Head Exam Head Exam: ATRAUMATIC - Eye Exam Eye Exam: Normal appearance - ENT Exam ENT Exam: Mucous Membranes Dry - Respiratory Exam Respiratory Exam: NORMAL BREATHING PATTERN - Cardiovascular Exam Cardiovascular Exam: +S1, +S2 - GI/Abdominal Exam GI & Abdominal Exam: Normal Bowel Sounds Assessment and Plan (1) Thrombocytopenia Assessment & Plan: 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
--- NOTE | 2018-05-22 01:08 | CP.PCM.PN ---
Subjective - Date & Time of Evaluation Date of Evaluation: 05/20/18 Time of Evaluation: 12:00 - Subjective Subjective: Feels bloated, son at bedside. Objective - Vital Signs/Intake and Output Vital Signs (last 24 hours): Temp Pulse Resp BP Pulse Ox 98.5 F 113 H 27 H 115/59 L 94 L 05/22/18 00:00 05/22/18 00:00 05/22/18 00:00 05/22/18 00:00 05/22/18 00:00 Intake and Output: 05/21/18 05/22/18 18:59 06:59 Intake Total 847 593 Output Total 375 265 Balance 472 328 - Medications Medications: Current Medications Acetaminophen (Tylenol 325mg Tab) 650 mg PO Q6 PRN PRN Reason: Fever >100.4 F Last Admin: 05/19/18 19:00 Dose: 650 mg Albuterol/Ipratropium (Duoneb 3 Mg/0.5 Mg (3 Ml) Ud) 3 ml INH RQ6 [facility] Last Admin: 05/21/18 19:23 Dose: Not Given Enoxaparin Sodium (Lovenox) 30 mg SC DAILY [facility] Last Admin: 05/21/18 10:40 Dose: 30 mg Epoetin Koby (Procrit) 8,000 unit SC TTS [facility] Ergocalciferol (Drisdol 50,000 Intl Units Cap) 1 cap PO Q7D [facility] Last Admin: 05/21/18 11:56 Dose: 1 cap Ferrous Gluconate (Fergon) 324 mg PO TID [facility] Last Admin: 05/21/18 18:48 Dose: 324 mg Hydroxyurea (Hydrea) 500 mg PO BID [facility] Last Admin: 05/15/18 10:00 Dose: 500 mg Ceftazidime/Avibactam 0.94 gm/ (Sodium Chloride) 100 mls @ 50 mls/hr IV Q12H [facility]; Protocol Last Admin: 05/21/18 18:08 Dose: 50 mls/hr Multivitamins/Vitamin C 10 ml/Chromium/Copper/Manganese/Zinc 1 ml/ Parenteral Electrolytes 20 ml/ Amino Acids 1,031 mls @ 42 mls/hr IV .Q24H ONE Stop: 05/22/18 17:59 Last Admin: 05/21/18 17:35 Dose: 42 mls/hr Metronidazole (Flagyl) 500 mg in 100 mls @ 100 mls/hr IVPB Q8H [facility]; Protocol Last Admin: 05/22/18 01:00 Dose: 100 mls/hr Pantoprazole Sodium (Protonix Susp) 40 mg PO DAILY [facility] Last Admin: 05/21/18 11:56 Dose: 40 mg Sodium Bicarbonate (Sodium Bicarbonate Tab) 1,300 mg PO BID [facility] Last Admin: 05/21/18 18:08 Dose: 1,300 mg Vitamin B Complex/Vit C/Folic Acid (Nephro-Charlie) 1 tab PO 0800 [facility] - Labs Labs: 05/21/18 23:12 05/21/18 08:55 PT 19.5 SECONDS (9.7-12.2) H 05/21/18 09:52 INR 1.8 05/21/18 09:52 APTT 34 SECONDS (21-34) 05/21/18 09:52 - Head Exam Head Exam: ATRAUMATIC - Eye Exam Eye Exam: Normal appearance - ENT Exam ENT Exam: Mucous Membranes Dry - Respiratory Exam Respiratory Exam: NORMAL BREATHING PATTERN - Cardiovascular Exam Cardiovascular Exam: +S1, +S2 - GI/Abdominal Exam GI & Abdominal Exam: Normal Bowel Sounds Assessment and Plan (1) Thrombocytopenia Assessment & Plan: 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
--- NOTE | 2018-05-22 01:10 | CP.PCM.PN ---
Subjective - Date & Time of Evaluation Date of Evaluation: 05/21/18 Time of Evaluation: 22:00 - Subjective Subjective: NG tube placed, imaging concerning for hemorrhage into infarcted spleen Objective - Vital Signs/Intake and Output Vital Signs (last 24 hours): Temp Pulse Resp BP Pulse Ox 98.5 F 113 H 27 H 115/59 L 94 L 05/22/18 00:00 05/22/18 00:00 05/22/18 00:00 05/22/18 00:00 05/22/18 00:00 Intake and Output: 05/21/18 05/22/18 18:59 06:59 Intake Total 847 593 Output Total 375 265 Balance 472 328 - Medications Medications: Current Medications Acetaminophen (Tylenol 325mg Tab) 650 mg PO Q6 PRN PRN Reason: Fever >100.4 F Last Admin: 05/19/18 19:00 Dose: 650 mg Albuterol/Ipratropium (Duoneb 3 Mg/0.5 Mg (3 Ml) Ud) 3 ml INH RQ6 [facility] Last Admin: 05/21/18 19:23 Dose: Not Given Enoxaparin Sodium (Lovenox) 30 mg SC DAILY [facility] Last Admin: 05/21/18 10:40 Dose: 30 mg Epoetin Koby (Procrit) 8,000 unit SC TTS [facility] Ergocalciferol (Drisdol 50,000 Intl Units Cap) 1 cap PO Q7D [facility] Last Admin: 05/21/18 11:56 Dose: 1 cap Ferrous Gluconate (Fergon) 324 mg PO TID [facility] Last Admin: 05/21/18 18:48 Dose: 324 mg Hydroxyurea (Hydrea) 500 mg PO BID [facility] Last Admin: 05/15/18 10:00 Dose: 500 mg Ceftazidime/Avibactam 0.94 gm/ (Sodium Chloride) 100 mls @ 50 mls/hr IV Q12H [facility]; Protocol Last Admin: 05/21/18 18:08 Dose: 50 mls/hr Multivitamins/Vitamin C 10 ml/Chromium/Copper/Manganese/Zinc 1 ml/ Parenteral Electrolytes 20 ml/ Amino Acids 1,031 mls @ 42 mls/hr IV .Q24H ONE Stop: 05/22/18 17:59 Last Admin: 05/21/18 17:35 Dose: 42 mls/hr Metronidazole (Flagyl) 500 mg in 100 mls @ 100 mls/hr IVPB Q8H [facility]; Protocol Last Admin: 05/22/18 01:00 Dose: 100 mls/hr Pantoprazole Sodium (Protonix Susp) 40 mg PO DAILY [facility] Last Admin: 05/21/18 11:56 Dose: 40 mg Sodium Bicarbonate (Sodium Bicarbonate Tab) 1,300 mg PO BID [facility] Last Admin: 05/21/18 18:08 Dose: 1,300 mg Vitamin B Complex/Vit C/Folic Acid (Nephro-Charlie) 1 tab PO 0800 [facility] - Labs Labs: 05/21/18 23:12 05/21/18 08:55 PT 19.5 SECONDS (9.7-12.2) H 05/21/18 09:52 INR 1.8 05/21/18 09:52 APTT 34 SECONDS (21-34) 05/21/18 09:52 - Head Exam Head Exam: ATRAUMATIC - Eye Exam Eye Exam: Normal appearance - ENT Exam ENT Exam: Mucous Membranes Dry - Respiratory Exam Respiratory Exam: NORMAL BREATHING PATTERN - Cardiovascular Exam Cardiovascular Exam: +S1, +S2 - GI/Abdominal Exam GI & Abdominal Exam: Normal Bowel Sounds Assessment and Plan (1) Thrombocytopenia Assessment & Plan: 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
[2018-05-22] MEDS: Albuterol-Ipratrop 3 mg / 0.5 (3 ml) UD INH SCH ×4 (02:30→19:11)
[2018-05-22 06:02] LABS: BASO # 0.1 K/uL (0.0-0.2); BASO % 0.5 % (0.0-2.0); EOS # 0.2 K/uL (0.0-0.7); EOS % 1.4 % (0.0-4.0); HEMOGLOBIN 9.3 g/dL (11.0-16.0); LYMPH # 0.5 K/uL (1.0-4.3); LYMPH % 3.2 % (20.0-40.0); MEAN CELL VOLUME 89.3 fL (81.0-99.0); MEAN CORPUSCULAR HEMOGLOBIN 29.3 pg (27.0-31.0); MEAN CORPUSCULAR HGB CONC 32.7 g/dL (33.0-37.0); MEAN PLATELET VOLUME 15.4 fL (7.2-11.7); MONO # 0.6 K/uL (0.0-0.8); MONO % 4.5 % (0.0-10.0); NEUT % 90.4 % (50.0-75.0); NRBC % 10.9 % (0.0-2.0); PLATELET COUNT 48 K/uL (130-400); RBC 3.19 Mil/uL (3.80-5.20); RED CELL DISTRIBUTION WIDTH 18.5 % (11.5-14.5); WHITE BLOOD COUNT 14.4 K/uL (4.8-10.8)
[2018-05-22 06:10] LABS: IRON 19 ug/dL (37-170)
[2018-05-22 06:20] LABS: % IRON SATURATION 14 (20-55); TOTAL IRON BINDING CAPACITY 137 ug/dL (250-450)
[2018-05-22 06:32] LABS: ALBUMIN 2.6 g/dL (3.5-5.0); CALCIUM 8.6 mg/dl (8.6-10.4)
[2018-05-22] MEDS: Tramadol 25 mg NG PRN (07:47)
[2018-05-22 08:14] LABS: ANISOCYTOSIS SLIGHT; BANDS 13 % (0-2); EOSINOPHIL 1 % (0-4); GIANT PLATELETS PRESENT; LARGE PLATELETS PRESENT; METAMYELOCYTE 2 % (0-0); MONOCYTE 7 % (0-10); NEUTROPHIL 77 % (50-75); NUCLEATED RED BLOOD CELL 15 % (0-0); PLATELET ESTIMATE DECREASED (NORMAL); POIKILOCYTOSIS SLIGHT; TOTAL CELLS COUNTED 100
[2018-05-22 08:15] LABS: OVALOCYTES SLIGHT
[2018-05-22 08:16] LABS: BURR CELLS SLIGHT
[2018-05-22] MEDS: Multivitamin Vitamin B Complex (Nephro-Vite) Tab PO SCH (08:36)
--- NOTE | 2018-05-22 08:54 | CP.CCUPN ---
<Haley Meza L - Last Filed: 05/22/18 15:28> CCU Subjective - Physician Review Subjective (Free Text): Resident Critical Care Progress Note Patient examined at bedside. Appears anxious and is complaining of discomfort due to the NG tube, and so NG tube was removed. Denies fever, chills, chest pain, shortness of breath. Was given 2 units pRBCs overnight. Critical Care Time Spent (in minutes): 35 CCU Objective - Vital Signs / Intake & Output Vital Signs (Last 4 hours): Vital Signs Pulse Resp BP Pulse Ox 05/22/18 07:00 112 H 24 120/66 94 L 05/22/18 06:00 107 H 27 H 113/66 97 05/22/18 05:00 108 H 21 111/67 97 Intake and Output (Last 8hrs): Intake & Output 05/21/18 05/22/18 05/22/18 22:59 06:59 14:59 Intake Total 1256 536 42 Output Total 310 450 Balance 946 86 42 Weight 187 lb 2 oz Intake: Intake, IV Amount 326 536 42 Right Distal Port PICC 84 336 42 Right PICC 200 Right Proximal Port PICC 0 200 r PICC 42 Blood Product 650 Red Blood Cells Cpd As1 325 Lr Unit [id number] Red Blood Cells Cpd As1 325 Lr Unit [id number] Other 280 Red Blood Cells Cpd As1 50 Lr Unit [id number] Red Blood Cells Cpd As1 50 Lr Unit [id number] Output: Gastric Amount 0 0 Right Nares 0 0 Urine 310 450 Urethral ([place]) 310 450 - Physical Exam Head: Positive for: Atraumatic, Normocephalic Pupils: Positive for: PERRL Extroacular Muscles: Positive for: EOMI Conjunctiva: Positive for: Normal Ears: Positive for: Normal Mouth: Positive for: Moist Mucous Membranes Nose (External): Positive for: Atraumatic Neck: Positive for: Normal Range of Motion Respiratory/Chest: Positive for: Good Air Exchange, Rhonchi. Negative for: Respiratory Distress Cardiovascular: Positive for: Regular Rate and Rhythm, Normal S1, S2 Abdomen: Positive for: Tenderness (diffuse ), Distention. Negative for: Peritoneal Signs, Rebound Upper Extremity: Positive for: Normal Inspection. Negative for: Cyanosis, Edema Lower Extremity: Positive for: Normal Inspection, Edema. Negative for: CALF TENDERNESS Neurological: Positive for: GCS=15, CN II-XII Intact, Speech Normal Skin: Positive for: Dry, Normal Color. Negative for: Rashes Psychiatric: Positive for: Alert, Oriented x 3, Anxious - Medications Active Medications: Active Medications Generic Name Dose Route Start Last Admin Trade Name Freq PRN Reason Stop Dose Admin Acetaminophen 650 mg 05/15/18 08:56 05/19/18 19:00 Tylenol 325mg Tab PO 650 mg Q6 PRN Administration Fever >100.4 F Albuterol/Ipratropium 3 ml 05/15/18 12:00 05/22/18 08:38 Duoneb 3 Mg/0.5 Mg (3 Ml) Ud INH 3 ml RQ6 NAN Administration Enoxaparin Sodium 30 mg 05/15/18 10:00 05/21/18 10:40 Lovenox SC 30 mg DAILY ANN Administration Epoetin Koby 8,000 unit 05/22/18 10:00 Procrit SC TTS NAN Ergocalciferol 1 cap 05/21/18 11:00 05/21/18 11:56 Drisdol 50,000 Intl Units Cap PO 1 cap Q7D NAN Administration Ferrous Gluconate 324 mg 05/21/18 14:00 05/21/18 18:48 Fergon PO 324 mg TID NAN Administration Hydroxyurea 500 mg 05/15/18 10:00 05/15/18 10:00 Hydrea PO 500 mg BID NNA Administration Ceftazidime/Avibactam 0.94 gm/ 100 mls @ 50 mls/hr 05/21/18 06:00 05/22/18 05:30 Sodium Chloride IV 50 mls/hr Q12H NAN Administration Protocol Multivitamins/Vitamin C 10 ml/ 1,031 mls @ 42 mls/hr 05/21/18 18:00 05/21/18 17:35 Chromium/Copper/Manganese/ IV 05/22/18 17:59 42 mls/hr Zinc 1 ml/ Parenteral .Q24H ONE Administration Electrolytes 20 ml/ Amino Acids Metronidazole 500 mg in 100 mls @ 100 mls/hr 05/21/18 17:00 05/22/18 08:36 Flagyl IVPB 100 mls/hr Q8H NAN Administration Protocol Pantoprazole Sodium 40 mg 05/21/18 12:00 05/21/18 11:56 Protonix Susp PO 40 mg DAILY NAN Administration Sodium Bicarbonate 1,300 mg 05/20/18 18:00 05/21/18 18:08 Sodium Bicarbonate Tab PO 1,300 mg BID NAN Administration Tramadol HCl 25 mg 05/22/18 07:16 Ultram NG TID PRN Pain, severe (8-10) Vitamin B Complex/Vit C/Folic Acid 1 tab 05/22/18 08:00 05/22/18 08:36 Nephro-Charlie PO 1 tab 0800 NAN Administration - Patient Studies Lab Studies: Microbiology Studies 05/17/18 11:50 Blood Culture - Preliminary Blood NO GROWTH AFTER 4 DAYS 05/17/18 11:50 Blood Culture - Preliminary Blood NO GROWTH AFTER 4 DAYS Lab Studies 05/22/18 05/22/18 05/22/18 Range/Units 05:53 05:53 05:53 WBC 14.4 H (4.8-10.8) K/uL RBC 3.19 L (3.80-5.20) Mil/uL Hgb 9.3 L (11.0-16.0) g/dL Hct 28.5 L (34.0-47.0) % MCV 89.3 (81.0-99.0) fL MCH 29.3 (27.0-31.0) pg MCHC 32.7 L (33.0-37.0) g/dL RDW 18.5 H (11.5-14.5) % Plt Count 48 L (130-400) K/uL MPV 15.4 H (7.2-11.7) fL Neut % (Auto) 90.4 H (50.0-75.0) % Lymph % (Auto) 3.2 L (20.0-40.0) % [place] % (Auto) 4.5 (0.0-10.0) % Eos % (Auto) 1.4 (0.0-4.0) % Baso % (Auto) 0.5 (0.0-2.0) % Neut # (Auto) 13.0 H (1.8-7.0) K/uL Lymph # (Auto) 0.5 L (1.0-4.3) K/uL [place] # (Auto) 0.6 (0.0-0.8) K/uL Eos # (Auto) 0.2 (0.0-0.7) K/uL Baso # (Auto) 0.1 (0.0-0.2) K/uL Neutrophils % (Manual) 77 H (50-75) % Band Neutrophils % 13 H* (0-2) % Lymphocytes % (Manual) TEST NOT PERFORMED (20-40) % Monocytes % (Manual) 7 (0-10) % Eosinophils % (Manual) 1 (0-4) % Metamyelocytes % 2 H (0-0) % Promyelocytes % (0-0) % Nucleated RBC % 15 H (0-0) % Platelet Estimate Decreased L (NORMAL) Large Platelets Present Giant Platelets Present Hypochromasia (manual) Poikilocytosis (manual Slight Anisocytosis (manual) Slight Microcytosis (manual) Macrocytosis (manual) Target Cells Tear Drop Cells Ovalocytes Slight [place] Cells Slight PT (9.7-12.2) SECONDS INR APTT (21-34) SECONDS Sodium 136 (132-148) mmol/L Potassium 4.5 (3.6-5.2) mmol/L Chloride 107 (98-107) mmol/L Carbon Dioxide 15 L (22-30) mmol/L Anion Gap 19 (10-20) BUN 100 H* (7-17) mg/dL Creatinine 2.6 H (0.7-1.2) mg/dL Est GFR ( Amer) 22 Est GFR (Non-Af Amer) 18 Random Glucose 105 (65-105) mg/dL Serum Osmolality (272-300) mosm/kg Uric Acid (2.2-7.5) mg/dL Calcium 8.6 (8.6-10.4) mg/dl Phosphorus 5.0 H (2.5-4.5) mg/dL Magnesium 2.3 (1.6-2.3) mg/dL Iron 19 L (37-170) ug/dL TIBC 137 L (250-450) ug/dL % Saturation 14 L (20-55) Total Bilirubin 0.9 (0.2-1.3) mg/dL AST 15 (14-36) U/L ALT 39 (9-52) U/L Alkaline Phosphatase 86 (38-126) U/L Total Creatine Kinase (30-135) U/L Troponin I (0.00-0.120) ng/mL Total Protein 5.2 L (6.3-8.3) g/dL Albumin 2.6 L (3.5-5.0) g/dL Globulin 2.5 (2.2-3.9) gm/dL Albumin/Globulin Ratio 1.0 (1.0-2.1) 25-OH Vitamin D Total (30.0-100.0) NG/ML Ur Random Creatinine (20-320) mg/dL Urine Total Volume mg/dL Microalb/Creat Ratio (<30) Complement C3 (88.0-165.0) mg/dL Complement C4 (14.0-44.0) mg/dL HIV 1&2 Antibody Screen (NEGATIVE) Blood Type Antibody Screen 05/21/18 05/21/18 05/21/18 Range/Units 23:12 09:52 09:52 WBC 15.1 H (4.8-10.8) K/uL RBC 3.03 L (3.80-5.20) Mil/uL Hgb 9.0 L (11.0-16.0) g/dL Hct 27.0 L (34.0-47.0) % MCV 89.3 (81.0-99.0) fL MCH 29.8 (27.0-31.0) pg MCHC 33.3 (33.0-37.0) g/dL RDW 18.3 H (11.5-14.5) % Plt Count 52 L (130-400) K/uL MPV 16.0 H (7.2-11.7) fL Neut % (Auto) (50.0-75.0) % Lymph % (Auto) (20.0-40.0) % [place] % (Auto) (0.0-10.0) % Eos % (Auto) (0.0-4.0) % Baso % (Auto) (0.0-2.0) % Neut # (Auto) (1.8-7.0) K/uL Lymph # (Auto) (1.0-4.3) K/uL [place] # (Auto) (0.0-0.8) K/uL Eos # (Auto) (0.0-0.7) K/uL Baso # (Auto) (0.0-0.2) K/uL Neutrophils % (Manual) (50-75) % Band Neutrophils % (0-2) % Lymphocytes % (Manual) (20-40) % Monocytes % (Manual) (0-10) % Eosinophils % (Manual) (0-4) % Metamyelocytes % (0-0) % Promyelocytes % (0-0) % Nucleated RBC % (0-0) % Platelet Estimate (NORMAL) Large Platelets Giant Platelets Hypochromasia (manual) Poikilocytosis (manual Anisocytosis (manual) Microcytosis (manual) Macrocytosis (manual) Target Cells Tear Drop Cells Ovalocytes [place] Cells PT 19.5 H (9.7-12.2) SECONDS INR 1.8 APTT 34 (21-34) SECONDS Sodium (132-148) mmol/L Potassium (3.6-5.2) mmol/L Chloride (98-107) mmol/L Carbon Dioxide (22-30) mmol/L Anion Gap (10-20) BUN (7-17) mg/dL Creatinine (0.7-1.2) mg/dL Est GFR ( Amer) Est GFR (Non-Af Amer) Random Glucose (65-105) mg/dL Serum Osmolality (272-300) mosm/kg Uric Acid (2.2-7.5) mg/dL Calcium (8.6-10.4) mg/dl Phosphorus (2.5-4.5) mg/dL Magnesium (1.6-2.3) mg/dL Iron (37-170) ug/dL TIBC (250-450) ug/dL % Saturation (20-55) Total Bilirubin (0.2-1.3) mg/dL AST (14-36) U/L ALT (9-52) U/L Alkaline Phosphatase (38-126) U/L Total Creatine Kinase (30-135) U/L Troponin I (0.00-0.120) ng/mL Total Protein (6.3-8.3) g/dL Albumin (3.5-5.0) g/dL Globulin (2.2-3.9) gm/dL Albumin/Globulin Ratio (1.0-2.1) 25-OH Vitamin D Total (30.0-100.0) NG/ML Ur Random Creatinine (20-320) mg/dL Urine Total Volume mg/dL Microalb/Creat Ratio (<30) Complement C3 (88.0-165.0) mg/dL Complement C4 (14.0-44.0) mg/dL HIV 1&2 Antibody Screen (NEGATIVE) Blood Type A POSITIVE Antibody Screen Negative 05/21/18 05/21/18 05/21/18 Range/Units 08:55 08:55 08:55 WBC (4.8-10.8) K/uL RBC (3.80-5.20) Mil/uL Hgb (11.0-16.0) g/dL Hct (34.0-47.0) % MCV (81.0-99.0) fL MCH (27.0-31.0) pg MCHC (33.0-37.0) g/dL RDW (11.5-14.5) % Plt Count (130-400) K/uL MPV (7.2-11.7) fL Neut % (Auto) (50.0-75.0) % Lymph % (Auto) (20.0-40.0) % [place] % (Auto) (0.0-10.0) % Eos % (Auto) (0.0-4.0) % Baso % (Auto) (0.0-2.0) % Neut # (Auto) (1.8-7.0) K/uL Lymph # (Auto) (1.0-4.3) K/uL [place] # (Auto) (0.0-0.8) K/uL Eos # (Auto) (0.0-0.7) K/uL Baso # (Auto) (0.0-0.2) K/uL Neutrophils % (Manual) (50-75) % Band Neutrophils % (0-2) % Lymphocytes % (Manual) (20-40) % Monocytes % (Manual) (0-10) % Eosinophils % (Manual) (0-4) % Metamyelocytes % (0-0) % Promyelocytes % (0-0) % Nucleated RBC % (0-0) % Platelet Estimate (NORMAL) Large Platelets Giant Platelets Hypochromasia (manual) Poikilocytosis (manual Anisocytosis (manual) Microcytosis (manual) Macrocytosis (manual) Target Cells Tear Drop Cells Ovalocytes [place] Cells PT (9.7-12.2) SECONDS INR APTT (21-34) SECONDS Sodium 133 (132-148) mmol/L Potassium 4.8 (3.6-5.2) mmol/L Chloride 103 (98-107) mmol/L Carbon Dioxide 16 L (22-30) mmol/L Anion Gap 19 (10-20) BUN 101 H* (7-17) mg/dL Creatinine 2.9 H (0.7-1.2) mg/dL Est GFR ( Amer) 20 Est GFR (Non-Af Amer) 16 Random Glucose 92 (65-105) mg/dL Serum Osmolality (272-300) mosm/kg Uric Acid (2.2-7.5) mg/dL Calcium 8.6 (8.6-10.4) mg/dl Phosphorus 5.6 H (2.5-4.5) mg/dL Magnesium (1.6-2.3) mg/dL Iron (37-170) ug/dL TIBC (250-450) ug/dL % Saturation (20-55) Total Bilirubin 0.9 (0.2-1.3) mg/dL AST 16 (14-36) U/L ALT 40 (9-52) U/L Alkaline Phosphatase 95 (38-126) U/L Total Creatine Kinase (30-135) U/L Troponin I 0.0210 (0.00-0.120) ng/mL Total Protein 5.5 L (6.3-8.3) g/dL Albumin 2.9 L D (3.5-5.0) g/dL Globulin 2.6 (2.2-3.9) gm/dL Albumin/Globulin Ratio 1.1 (1.0-2.1) 25-OH Vitamin D Total (30.0-100.0) NG/ML Ur Random Creatinine (20-320) mg/dL Urine Total Volume mg/dL Microalb/Creat Ratio (<30) Complement C3 65.0 L (88.0-165.0) mg/dL Complement C4 24.8 (14.0-44.0) mg/dL HIV 1&2 Antibody Screen Negative (NEGATIVE) Blood Type Antibody Screen 05/21/18 05/21/18 05/21/18 Range/Units 08:55 08:55 08:55 WBC (4.8-10.8) K/uL RBC (3.80-5.20) Mil/uL Hgb (11.0-16.0) g/dL Hct (34.0-47.0) % MCV (81.0-99.0) fL MCH (27.0-31.0) pg MCHC (33.0-37.0) g/dL RDW (11.5-14.5) % Plt Count (130-400) K/uL MPV (7.2-11.7) fL Neut % (Auto) (50.0-75.0) % Lymph % (Auto) (20.0-40.0) % [place] % (Auto) (0.0-10.0) % Eos % (Auto) (0.0-4.0) % Baso % (Auto) (0.0-2.0) % Neut # (Auto) (1.8-7.0) K/uL Lymph # (Auto) (1.0-4.3) K/uL [place] # (Auto) (0.0-0.8) K/uL Eos # (Auto) (0.0-0.7) K/uL Baso # (Auto) (0.0-0.2) K/uL Neutrophils % (Manual) (50-75) % Band Neutrophils % (0-2) % Lymphocytes % (Manual) (20-40) % Monocytes % (Manual) (0-10) % Eosinophils % (Manual) (0-4) % Metamyelocytes % (0-0) % Promyelocytes % (0-0) % Nucleated RBC % (0-0) % Platelet Estimate (NORMAL) Large Platelets Giant Platelets Hypochromasia (manual) Poikilocytosis (manual Anisocytosis (manual) Microcytosis (manual) Macrocytosis (manual) Target Cells Tear Drop Cells Ovalocytes [place] Cells PT (9.7-12.2) SECONDS INR APTT (21-34) SECONDS Sodium (132-148) mmol/L Potassium (3.6-5.2) mmol/L Chloride (98-107) mmol/L Carbon Dioxide (22-30) mmol/L Anion Gap (10-20) BUN (7-17) mg/dL Creatinine (0.7-1.2) mg/dL Est GFR ( Amer) Est GFR (Non-Af Amer) Random Glucose (65-105) mg/dL Serum Osmolality 309 H (272-300) mosm/kg Uric Acid 14.7 H (2.2-7.5) mg/dL Calcium (8.6-10.4) mg/dl Phosphorus (2.5-4.5) mg/dL Magnesium (1.6-2.3) mg/dL Iron (37-170) ug/dL TIBC (250-450) ug/dL % Saturation (20-55) Total Bilirubin (0.2-1.3) mg/dL AST (14-36) U/L ALT (9-52) U/L Alkaline Phosphatase (38-126) U/L Total Creatine Kinase < 20 L (30-135) U/L Troponin I (0.00-0.120) ng/mL Total Protein (6.3-8.3) g/dL Albumin (3.5-5.0) g/dL Globulin (2.2-3.9) gm/dL Albumin/Globulin Ratio (1.0-2.1) 25-OH Vitamin D Total 22.1 L (30.0-100.0) NG/ML Ur Random Creatinine (20-320) mg/dL Urine Total Volume mg/dL Microalb/Creat Ratio (<30) Complement C3 (88.0-165.0) mg/dL Complement C4 (14.0-44.0) mg/dL HIV 1&2 Antibody Screen (NEGATIVE) Blood Type Antibody Screen 05/21/18 05/21/18 Range/Units 08:13 07:38 WBC (4.8-10.8) K/uL RBC (3.80-5.20) Mil/uL Hgb (11.0-16.0) g/dL Hct (34.0-47.0) % MCV (81.0-99.0) fL MCH (27.0-31.0) pg MCHC (33.0-37.0) g/dL RDW (11.5-14.5) % Plt Count (130-400) K/uL MPV (7.2-11.7) fL Neut % (Auto) (50.0-75.0) % Lymph % (Auto) (20.0-40.0) % [place] % (Auto) (0.0-10.0) % Eos % (Auto) (0.0-4.0) % Baso % (Auto) (0.0-2.0) % Neut # (Auto) (1.8-7.0) K/uL Lymph # (Auto) (1.0-4.3) K/uL [place] # (Auto) (0.0-0.8) K/uL Eos # (Auto) (0.0-0.7) K/uL Baso # (Auto) (0.0-0.2) K/uL Neutrophils % (Manual) 75 (50-75) % Band Neutrophils % 10 H (0-2) % Lymphocytes % (Manual) 3 L (20-40) % Monocytes % (Manual) 10 (0-10) % Eosinophils % (Manual) (0-4) % Metamyelocytes % 1 H (0-0) % Promyelocytes % 1 H (0-0) % Nucleated RBC % 6 H (0-0) % Platelet Estimate Decreased L (NORMAL) Large Platelets Present Giant Platelets Present Hypochromasia (manual) Moderate Poikilocytosis (manual Slight Anisocytosis (manual) Slight Microcytosis (manual) Slight Macrocytosis (manual) Slight Target Cells Moderate Tear Drop Cells Slight Ovalocytes Slight [place] Cells Slight PT (9.7-12.2) SECONDS INR APTT (21-34) SECONDS Sodium (132-148) mmol/L Potassium (3.6-5.2) mmol/L Chloride (98-107) mmol/L Carbon Dioxide (22-30) mmol/L Anion Gap (10-20) BUN (7-17) mg/dL Creatinine (0.7-1.2) mg/dL Est GFR ( Amer) Est GFR (Non-Af Amer) Random Glucose (65-105) mg/dL Serum Osmolality (272-300) mosm/kg Uric Acid (2.2-7.5) mg/dL Calcium (8.6-10.4) mg/dl Phosphorus (2.5-4.5) mg/dL Magnesium (1.6-2.3) mg/dL Iron (37-170) ug/dL TIBC (250-450) ug/dL % Saturation (20-55) Total Bilirubin (0.2-1.3) mg/dL AST (14-36) U/L ALT (9-52) U/L Alkaline Phosphatase (38-126) U/L Total Creatine Kinase (30-135) U/L Troponin I (0.00-0.120) ng/mL Total Protein (6.3-8.3) g/dL Albumin (3.5-5.0) g/dL Globulin (2.2-3.9) gm/dL Albumin/Globulin Ratio (1.0-2.1) 25-OH Vitamin D Total (30.0-100.0) NG/ML Ur Random Creatinine 106 (20-320) mg/dL Urine Total Volume 30.0 mg/dL Microalb/Creat Ratio 285 H (<30) Complement C3 (88.0-165.0) mg/dL Complement C4 (14.0-44.0) mg/dL HIV 1&2 Antibody Screen (NEGATIVE) Blood Type Antibody Screen Laboratory Results - last 24 hr 05/21/18 05/21/18 05/21/18 07:38 08:13 08:55 WBC RBC Hgb Hct MCV MCH MCHC RDW Plt Count MPV Neut % (Auto) Lymph % (Auto) [place] % (Auto) Eos % (Auto) Baso % (Auto) Neut # (Auto) Lymph # (Auto) [place] # (Auto) Eos # (Auto) Baso # (Auto) Neutrophils % (Manual) 75 Band Neutrophils % 10 H Lymphocytes % (Manual) 3 L Monocytes % (Manual) 10 Eosinophils % (Manual) Metamyelocytes % 1 H Promyelocytes % 1 H Nucleated RBC % 6 H Platelet Estimate Decreased L Large Platelets Present Giant Platelets Present Hypochromasia (manual) Moderate Poikilocytosis (manual Slight Anisocytosis (manual) Slight Microcytosis (manual) Slight Macrocytosis (manual) Slight Target Cells Moderate Tear Drop Cells Slight Ovalocytes Slight [place] Cells Slight PT INR APTT Sodium Potassium Chloride Carbon Dioxide Anion Gap BUN Creatinine Est GFR ( Amer) Est GFR (Non-Af Amer) Random Glucose Serum Osmolality 309 H Uric Acid Calcium Phosphorus Magnesium Iron TIBC % Saturation Total Bilirubin AST ALT Alkaline Phosphatase Total Creatine Kinase Troponin I Total Protein Albumin Globulin Albumin/Globulin Ratio 25-OH Vitamin D Total Ur Random Creatinine 106 Urine Total Volume 30.0 Microalb/Creat Ratio 285 H Complement C3 Complement C4 HIV 1&2 Antibody Screen Blood Type Antibody Screen 05/21/18 05/21/18 05/21/18 08:55 08:55 08:55 WBC RBC Hgb Hct MCV MCH MCHC RDW Plt Count MPV Neut % (Auto) Lymph % (Auto) [place] % (Auto) Eos % (Auto) Baso % (Auto) Neut # (Auto) Lymph # (Auto) [place] # (Auto) Eos # (Auto) Baso # (Auto) Neutrophils % (Manual) Band Neutrophils % Lymphocytes % (Manual) Monocytes % (Manual) Eosinophils % (Manual) Metamyelocytes % Promyelocytes % Nucleated RBC % Platelet Estimate Large Platelets Giant Platelets Hypochromasia (manual) Poikilocytosis (manual Anisocytosis (manual) Microcytosis (manual) Macrocytosis (manual) Target Cells Tear Drop Cells Ovalocytes [place] Cells PT INR APTT Sodium Potassium Chloride Carbon Dioxide Anion Gap BUN Creatinine Est GFR ( Amer) Est GFR (Non-Af Amer) Random Glucose Serum Osmolality Uric Acid 14.7 H Calcium Phosphorus Magnesium Iron TIBC % Saturation Total Bilirubin AST ALT Alkaline Phosphatase Total Creatine Kinase < 20 L Troponin I Total Protein Albumin Globulin Albumin/Globulin Ratio 25-OH Vitamin D Total 22.1 L Ur Random Creatinine Urine Total Volume Microalb/Creat Ratio Complement C3 Complement C4 HIV 1&2 Antibody Screen Negative Blood Type Antibody Screen 05/21/18 05/21/18 05/21/18 08:55 08:55 09:52 WBC RBC Hgb Hct MCV MCH MCHC RDW Plt Count MPV Neut % (Auto) Lymph % (Auto) [place] % (Auto) Eos % (Auto) Baso % (Auto) Neut # (Auto) Lymph # (Auto) [place] # (Auto) Eos # (Auto) Baso # (Auto) Neutrophils % (Manual) Band Neutrophils % Lymphocytes % (Manual) Monocytes % (Manual) Eosinophils % (Manual) Metamyelocytes % Promyelocytes % Nucleated RBC % Platelet Estimate Large Platelets Giant Platelets Hypochromasia (manual) Poikilocytosis (manual Anisocytosis (manual) Microcytosis (manual) Macrocytosis (manual) Target Cells Tear Drop Cells Ovalocytes [place] Cells PT 19.5 H INR 1.8 APTT 34 Sodium 133 Potassium 4.8 Chloride 103 Carbon Dioxide 16 L Anion Gap 19 BUN 101 H* Creatinine 2.9 H Est GFR ( Amer) 20 Est GFR (Non-Af Amer) 16 Random Glucose 92 Serum Osmolality Uric Acid Calcium 8.6 Phosphorus 5.6 H Magnesium Iron TIBC % Saturation Total Bilirubin 0.9 AST 16 ALT 40 Alkaline Phosphatase 95 Total Creatine Kinase Troponin I 0.0210 Total Protein 5.5 L Albumin 2.9 L D Globulin 2.6 Albumin/Globulin Ratio 1.1 25-OH Vitamin D Total Ur Random Creatinine Urine Total Volume Microalb/Creat Ratio Complement C3 65.0 L Complement C4 24.8 HIV 1&2 Antibody Screen Blood Type Antibody Screen 05/21/18 05/21/18 05/22/18 09:52 23:12 05:53 WBC 15.1 H RBC 3.03 L Hgb 9.0 L Hct 27.0 L MCV 89.3 MCH 29.8 MCHC 33.3 RDW 18.3 H Plt Count 52 L MPV 16.0 H Neut % (Auto) Lymph % (Auto) [place] % (Auto) Eos % (Auto) Baso % (Auto) Neut # (Auto) Lymph # (Auto) [place] # (Auto) Eos # (Auto) Baso # (Auto) Neutrophils % (Manual) Band Neutrophils % Lymphocytes % (Manual) Monocytes % (Manual) Eosinophils % (Manual) Metamyelocytes % Promyelocytes % Nucleated RBC % Platelet Estimate Large Platelets Giant Platelets Hypochromasia (manual) Poikilocytosis (manual Anisocytosis (manual) Microcytosis (manual) Macrocytosis (manual) Target Cells Tear Drop Cells Ovalocytes [place] Cells PT INR APTT Sodium Potassium Chloride Carbon Dioxide Anion Gap BUN Creatinine Est GFR ( Amer) Est GFR (Non-Af Amer) Random Glucose Serum Osmolality Uric Acid Calcium Phosphorus Magnesium Iron 19 L TIBC 137 L % Saturation 14 L Total Bilirubin AST ALT Alkaline Phosphatase Total Creatine Kinase Troponin I Total Protein Albumin Globulin Albumin/Globulin Ratio 25-OH Vitamin D Total Ur Random Creatinine Urine Total Volume Microalb/Creat Ratio Complement C3 Complement C4 HIV 1&2 Antibody Screen Blood Type A POSITIVE Antibody Screen Negative 05/22/18 05/22/18 05:53 05:53 WBC 14.4 H RBC 3.19 L Hgb 9.3 L Hct 28.5 L MCV 89.3 MCH 29.3 MCHC 32.7 L RDW 18.5 H Plt Count 48 L MPV 15.4 H Neut % (Auto) 90.4 H Lymph % (Auto) 3.2 L [place] % (Auto) 4.5 Eos % (Auto) 1.4 Baso % (Auto) 0.5 Neut # (Auto) 13.0 H Lymph # (Auto) 0.5 L [place] # (Auto) 0.6 Eos # (Auto) 0.2 Baso # (Auto) 0.1 Neutrophils % (Manual) 77 H Band Neutrophils % 13 H* Lymphocytes % (Manual) TEST NOT PERFORMED Monocytes % (Manual) 7 Eosinophils % (Manual) 1 Metamyelocytes % 2 H Promyelocytes % Nucleated RBC % 15 H Platelet Estimate Decreased L Large Platelets Present Giant Platelets Present Hypochromasia (manual) Poikilocytosis (manual Slight Anisocytosis (manual) Slight Microcytosis (manual) Macrocytosis (manual) Target Cells Tear Drop Cells Ovalocytes Slight Fatmata Cells Slight PT INR APTT Sodium 136 Potassium 4.5 Chloride 107 Carbon Dioxide 15 L Anion Gap 19 BUN 100 H* Creatinine 2.6 H Est GFR ( Amer) 22 Est GFR (Non-Af Amer) 18 Random Glucose 105 Serum Osmolality Uric Acid Calcium 8.6 Phosphorus 5.0 H Magnesium 2.3 Iron TIBC % Saturation Total Bilirubin 0.9 AST 15 ALT 39 Alkaline Phosphatase 86 Total Creatine Kinase Troponin I Total Protein 5.2 L Albumin 2.6 L Globulin 2.5 Albumin/Globulin Ratio 1.0 25-OH Vitamin D Total Ur Random Creatinine Urine Total Volume Microalb/Creat Ratio Complement C3 Complement C4 HIV 1&2 Antibody Screen Blood Type Antibody Screen EKG/Cardiology Studies: Cardiology / EKG Studies 05/21/18 08:25 ELECTROCARDIOGRAM Stat Comment: Mode Of Transportation: Reason For Exam: cardiac Isolation: Contact Review of Systems - Review of Systems All systems: reviewed and no additional remarkable complaints except (as mentioned in HPI) Critical Care Progress Note - Prophylaxis GI Prophylaxis GI: PPI - Prophylaxis DVT Prophylaxis DVT: Lovenox - Nutrition Nutrition: Soft diet Assessment/Plan - Assessment and Plan (Free Text) Assessment: 67 year old female with a PMHx of myelofibrosis, HTN, renal insufficiency admitted with fever and UTI. 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 On previous admission patient had splenic embolization. Plan: Neuro: - AAO x3 Pulm: - nasal cannula as tolerated - maintain SPO2 > 92% - Duonebs 3 ml INH RQ6 CV: - currently hemodynamically stable - Eliquis held 09/20 acute hemorrhagic process emanating from the spleen - ECHO 05/21 shows LVEF 62%, small pericardial effusion inferior to LV, mild AR, paradoxical septal motion - Dopplers showed acute thrombosis of right gastrocnemius vein with severe reduction of venous return. - Abd/pelvis CT shows small left pleural effusion, minimal pericardial effusion GI: - s/p IR splenic artery embolization - 05/[address] shows large infarcted spleen predominantly liquified with gas and fluid. Suspicion for hemorrhage into infarcted spleen. - Pepcid 20mg PO daily - advanced to soft diet Renal: - SOFIA - UA shows 2+ protein, 3+ blood - monitor I and O - Replete electrolytes as needed - Urology Dr Flor Irvin consulted. Appreciate recs. - Nephrology Dr. Wylie consulted. Recs appreciated. ID: - 05/17 BCx show NG after 4 days - Tygacil 100 mg given - ID Dr. Jackson consulted. Recs appreciated. - Avycaz 0.94 g IV q12h (started 05/15) Heme/Onc - Hx of myelofibrosis with chronic leukocytosis - Dr. Mcbride consulted. Recs appreciated. - Holding Arina Kennedy - 2 units pRBCs given - Ferrous gluconate 324 mg PO TID Endo: - Maintain euglycemia PPX: Pepcid 20 mg PO daily, Lovenox 30 mg SC daily Case and plan was reviewed and discussed with Dr. Fouzia Meza PGY-1 - Date & Time Date: 05/22/18 Time: 08:56 <Terrance Fragoso - Last Filed: 05/22/18 17:33> CCU Objective - Vital Signs / Intake & Output Vital Signs (Last 4 hours): Vital Signs Pulse Resp BP Pulse Ox 05/22/18 14:00 112/61 05/22/18 13:59 112 H 28 H 96 Intake and Output (Last 8hrs): Intake & Output 05/22/18 05/22/18 05/22/18 06:59 14:59 22:59 Intake Total 536 310 Output Total 450 270 Balance 86 40 Weight 187 lb 2 oz Intake: Intake, IV Amount 536 310 Right Distal Port PICC 336 210 Right Proximal Port PICC 200 100 Oral 0 Output: Gastric Amount 0 Right Nares 0 Urine 450 270 Urethral (Addison) 450 270 - Medications Active Medications: Active Medications Generic Name Dose Route Start Last Admin Trade Name Freq PRN Reason Stop Dose Admin Acetaminophen 650 mg 05/15/18 08:56 05/19/18 19:00 Tylenol 325mg Tab PO 650 mg Q6 PRN Administration Fever >100.4 F Albuterol/Ipratropium 3 ml 05/15/18 12:00 05/22/18 08:38 Duoneb 3 Mg/0.5 Mg (3 Ml) Ud INH 3 ml RQ6 NAN Administration Enoxaparin Sodium 30 mg 05/15/18 10:00 05/21/18 10:40 Lovenox SC 30 mg DAILY NAN Administration Epoetin Koby 8,000 unit 05/22/18 10:00 Procrit SC TTS NAN Ergocalciferol 1 cap 05/21/18 11:00 05/21/18 11:56 Drisdol 50,000 Intl Units Cap PO 1 cap Q7D NAN Administration Ferrous Gluconate 324 mg 05/21/18 14:00 05/22/18 10:54 Fergon PO 324 mg TID NAN Administration Hydroxyurea 500 mg 05/15/18 10:00 05/15/18 10:00 Hydrea PO 500 mg BID NAN Administration Ceftazidime/Avibactam 0.94 gm/ 100 mls @ 50 mls/hr 05/21/18 06:00 05/22/18 05:30 Sodium Chloride IV 50 mls/hr Q12H NAN Administration Protocol Metronidazole 500 mg in 100 mls @ 100 mls/hr 05/21/18 17:00 05/22/18 08:36 Flagyl IVPB 100 mls/hr Q8H NAN Administration Protocol Pantoprazole Sodium 40 mg 05/21/18 12:00 05/22/18 10:55 Protonix Susp PO 40 mg DAILY NAN Administration Sodium Bicarbonate 1,300 mg 05/20/18 18:00 05/22/18 10:54 Sodium Bicarbonate Tab PO 1,300 mg BID NAN Administration Tramadol HCl 25 mg 05/22/18 07:16 Ultram NG TID PRN Pain, severe (8-10) Vitamin B Complex/Vit C/Folic Acid 1 tab 05/22/18 08:00 05/22/18 08:36 Nephro-Charlie PO 1 tab 0800 [facility] Administration - Patient Studies Lab Studies: Microbiology Studies 05/17/18 11:50 Blood Culture - Final Blood NO GROWTH AFTER 5 DAYS Gram Stain - Final TEST NOT PERFORMED 05/17/18 11:50 Blood Culture - Final Blood NO GROWTH AFTER 5 DAYS Gram Stain - Final TEST NOT PERFORMED Lab Studies 05/22/18 05/22/18 05/22/18 Range/Units 05:53 05:53 05:53 WBC 14.4 H (4.8-10.8) K/uL RBC 3.19 L (3.80-5.20) Mil/uL Hgb 9.3 L (11.0-16.0) g/dL Hct 28.5 L (34.0-47.0) % MCV 89.3 (81.0-99.0) fL MCH 29.3 (27.0-31.0) pg MCHC 32.7 L (33.0-37.0) g/dL RDW 18.5 H (11.5-14.5) % Plt Count 48 L (130-400) K/uL MPV 15.4 H (7.2-11.7) fL Neut % (Auto) 90.4 H (50.0-75.0) % Lymph % (Auto) 3.2 L (20.0-40.0) % [place] % (Auto) 4.5 (0.0-10.0) % Eos % (Auto) 1.4 (0.0-4.0) % Baso % (Auto) 0.5 (0.0-2.0) % Neut # (Auto) 13.0 H (1.8-7.0) K/uL Lymph # (Auto) 0.5 L (1.0-4.3) K/uL [place] # (Auto) 0.6 (0.0-0.8) K/uL Eos # (Auto) 0.2 (0.0-0.7) K/uL Baso # (Auto) 0.1 (0.0-0.2) K/uL Neutrophils % (Manual) 77 H (50-75) % Band Neutrophils % 13 H* (0-2) % Lymphocytes % (Manual) TEST NOT PERFORMED Monocytes % (Manual) 7 (0-10) % Eosinophils % (Manual) 1 (0-4) % Metamyelocytes % 2 H (0-0) % Nucleated RBC % 15 H (0-0) % Platelet Estimate Decreased L (NORMAL) Large Platelets Present Giant Platelets Present Poikilocytosis (manual Slight Anisocytosis (manual) Slight Ovalocytes Slight [place] Cells Slight Sodium 136 (132-148) mmol/L Potassium 4.5 (3.6-5.2) mmol/L Chloride 107 (98-107) mmol/L Carbon Dioxide 15 L (22-30) mmol/L Anion Gap 19 (10-20) BUN 100 H* (7-17) mg/dL Creatinine 2.6 H (0.7-1.2) mg/dL Est GFR ( Amer) 22 Est GFR (Non-Af Amer) 18 Random Glucose 105 (65-105) mg/dL Calcium 8.6 (8.6-10.4) mg/dl Phosphorus 5.0 H (2.5-4.5) mg/dL Magnesium 2.3 (1.6-2.3) mg/dL Iron 19 L (37-170) ug/dL TIBC 137 L (250-450) ug/dL % Saturation 14 L (20-55) Total Bilirubin 0.9 (0.2-1.3) mg/dL AST 15 (14-36) U/L ALT 39 (9-52) U/L Alkaline Phosphatase 86 (38-126) U/L Total Protein 5.2 L (6.3-8.3) g/dL Albumin 2.6 L (3.5-5.0) g/dL Globulin 2.5 (2.2-3.9) gm/dL Albumin/Globulin Ratio 1.0 (1.0-2.1) PTH Intact Whole Molec (14-64) pg/mL Ur Random Creatinine (20-320) mg/dL U Random Total Protein (21-161) mg/g creat Urine Total Volume mg/dL Microalb/Creat Ratio (<30) Urine Chloride (32-290) mmol/L Blood Type Antibody Screen 05/21/18 05/21/18 05/21/18 Range/Units 23:12 09:52 08:55 WBC 15.1 H (4.8-10.8) K/uL RBC 3.03 L (3.80-5.20) Mil/uL Hgb 9.0 L (11.0-16.0) g/dL Hct 27.0 L (34.0-47.0) % MCV 89.3 (81.0-99.0) fL MCH 29.8 (27.0-31.0) pg MCHC 33.3 (33.0-37.0) g/dL RDW 18.3 H (11.5-14.5) % Plt Count 52 L (130-400) K/uL MPV 16.0 H (7.2-11.7) fL Neut % (Auto) (50.0-75.0) % Lymph % (Auto) (20.0-40.0) % [place] % (Auto) (0.0-10.0) % Eos % (Auto) (0.0-4.0) % Baso % (Auto) (0.0-2.0) % Neut # (Auto) (1.8-7.0) K/uL Lymph # (Auto) (1.0-4.3) K/uL [place] # (Auto) (0.0-0.8) K/uL Eos # (Auto) (0.0-0.7) K/uL Baso # (Auto) (0.0-0.2) K/uL Neutrophils % (Manual) (50-75) % Band Neutrophils % (0-2) % Lymphocytes % (Manual) Monocytes % (Manual) (0-10) % Eosinophils % (Manual) (0-4) % Metamyelocytes % (0-0) % Nucleated RBC % (0-0) % Platelet Estimate (NORMAL) Large Platelets Giant Platelets Poikilocytosis (manual Anisocytosis (manual) Ovalocytes [place] Cells Sodium (132-148) mmol/L Potassium (3.6-5.2) mmol/L Chloride (98-107) mmol/L Carbon Dioxide (22-30) mmol/L Anion Gap (10-20) BUN (7-17) mg/dL Creatinine (0.7-1.2) mg/dL Est GFR ( Amer) Est GFR (Non-Af Amer) Random Glucose (65-105) mg/dL Calcium (8.6-10.4) mg/dl Phosphorus (2.5-4.5) mg/dL Magnesium (1.6-2.3) mg/dL Iron (37-170) ug/dL TIBC (250-450) ug/dL % Saturation (20-55) Total Bilirubin (0.2-1.3) mg/dL AST (14-36) U/L ALT (9-52) U/L Alkaline Phosphatase (38-126) U/L Total Protein (6.3-8.3) g/dL Albumin (3.5-5.0) g/dL Globulin (2.2-3.9) gm/dL Albumin/Globulin Ratio (1.0-2.1) PTH Intact Whole Molec 24 (14-64) pg/mL Ur Random Creatinine (20-320) mg/dL U Random Total Protein (21-161) mg/g creat Urine Total Volume mg/dL Microalb/Creat Ratio (<30) Urine Chloride (32-290) mmol/L Blood Type A POSITIVE Antibody Screen Negative 05/21/18 05/20/18 05/20/18 Range/Units 08:13 08:14 08:14 WBC (4.8-10.8) K/uL RBC (3.80-5.20) Mil/uL Hgb (11.0-16.0) g/dL Hct (34.0-47.0) % MCV (81.0-99.0) fL MCH (27.0-31.0) pg MCHC (33.0-37.0) g/dL RDW (11.5-14.5) % Plt Count (130-400) K/uL MPV (7.2-11.7) fL Neut % (Auto) (50.0-75.0) % Lymph % (Auto) (20.0-40.0) % [place] % (Auto) (0.0-10.0) % Eos % (Auto) (0.0-4.0) % Baso % (Auto) (0.0-2.0) % Neut # (Auto) (1.8-7.0) K/uL Lymph # (Auto) (1.0-4.3) K/uL [place] # (Auto) (0.0-0.8) K/uL Eos # (Auto) (0.0-0.7) K/uL Baso # (Auto) (0.0-0.2) K/uL Neutrophils % (Manual) (50-75) % Band Neutrophils % (0-2) % Lymphocytes % (Manual) Monocytes % (Manual) (0-10) % Eosinophils % (Manual) (0-4) % Metamyelocytes % (0-0) % Nucleated RBC % (0-0) % Platelet Estimate (NORMAL) Large Platelets Giant Platelets Poikilocytosis (manual Anisocytosis (manual) Ovalocytes [place] Cells Sodium (132-148) mmol/L Potassium (3.6-5.2) mmol/L Chloride (98-107) mmol/L Carbon Dioxide (22-30) mmol/L Anion Gap (10-20) BUN (7-17) mg/dL Creatinine (0.7-1.2) mg/dL Est GFR ( Amer) Est GFR (Non-Af Amer) Random Glucose (65-105) mg/dL Calcium (8.6-10.4) mg/dl Phosphorus (2.5-4.5) mg/dL Magnesium (1.6-2.3) mg/dL Iron (37-170) ug/dL TIBC (250-450) ug/dL % Saturation (20-55) Total Bilirubin (0.2-1.3) mg/dL AST (14-36) U/L ALT (9-52) U/L Alkaline Phosphatase (38-126) U/L Total Protein (6.3-8.3) g/dL Albumin (3.5-5.0) g/dL Globulin (2.2-3.9) gm/dL Albumin/Globulin Ratio (1.0-2.1) PTH Intact Whole Molec (14-64) pg/mL Ur Random Creatinine 106 (20-320) mg/dL U Random Total Protein 1153 H (21-161) mg/g creat Urine Total Volume 30.0 mg/dL Microalb/Creat Ratio 285 H (<30) Urine Chloride 29 L (32-290) mmol/L Blood Type Antibody Screen Laboratory Results - last 24 hr 05/20/18 05/20/18 05/21/18 08:14 08:14 08:13 WBC RBC Hgb Hct MCV MCH MCHC RDW Plt Count MPV Neut % (Auto) Lymph % (Auto) [place] % (Auto) Eos % (Auto) Baso % (Auto) Neut # (Auto) Lymph # (Auto) [place] # (Auto) Eos # (Auto) Baso # (Auto) Neutrophils % (Manual) Band Neutrophils % Lymphocytes % (Manual) Monocytes % (Manual) Eosinophils % (Manual) Metamyelocytes % Nucleated RBC % Platelet Estimate Large Platelets Giant Platelets Poikilocytosis (manual Anisocytosis (manual) Ovalocytes [place] Cells Sodium Potassium Chloride Carbon Dioxide Anion Gap BUN Creatinine Est GFR ( Amer) Est GFR (Non-Af Amer) Random Glucose Calcium Phosphorus Magnesium Iron TIBC % Saturation Total Bilirubin AST ALT Alkaline Phosphatase Total Protein Albumin Globulin Albumin/Globulin Ratio PTH Intact Whole Molec Ur Random Creatinine 106 U Random Total Protein 1153 H Urine Total Volume 30.0 Microalb/Creat Ratio 285 H Urine Chloride 29 L Blood Type Antibody Screen 05/21/18 05/21/18 05/21/18 08:55 09:52 23:12 WBC 15.1 H RBC 3.03 L Hgb 9.0 L Hct 27.0 L MCV 89.3 MCH 29.8 MCHC 33.3 RDW 18.3 H Plt Count 52 L MPV 16.0 H Neut % (Auto) Lymph % (Auto) [place] % (Auto) Eos % (Auto) Baso % (Auto) Neut # (Auto) Lymph # (Auto) [place] # (Auto) Eos # (Auto) Baso # (Auto) Neutrophils % (Manual) Band Neutrophils % Lymphocytes % (Manual) Monocytes % (Manual) Eosinophils % (Manual) Metamyelocytes % Nucleated RBC % Platelet Estimate Large Platelets Giant Platelets Poikilocytosis (manual Anisocytosis (manual) Ovalocytes [place] Cells Sodium Potassium Chloride Carbon Dioxide Anion Gap BUN Creatinine Est GFR ( Amer) Est GFR (Non-Af Amer) Random Glucose Calcium Phosphorus Magnesium Iron TIBC % Saturation Total Bilirubin AST ALT Alkaline Phosphatase Total Protein Albumin Globulin Albumin/Globulin Ratio PTH Intact Whole Molec 24 Ur Random Creatinine U Random Total Protein Urine Total Volume Microalb/Creat Ratio Urine Chloride Blood Type A POSITIVE Antibody Screen Negative 05/22/18 05/22/18 05/22/18 05:53 05:53 05:53 WBC 14.4 H RBC 3.19 L Hgb 9.3 L Hct 28.5 L MCV 89.3 MCH 29.3 MCHC 32.7 L RDW 18.5 H Plt Count 48 L MPV 15.4 H Neut % (Auto) 90.4 H Lymph % (Auto) 3.2 L [place] % (Auto) 4.5 Eos % (Auto) 1.4 Baso % (Auto) 0.5 Neut # (Auto) 13.0 H Lymph # (Auto) 0.5 L [place] # (Auto) 0.6 Eos # (Auto) 0.2 Baso # (Auto) 0.1 Neutrophils % (Manual) 77 H Band Neutrophils % 13 H* Lymphocytes % (Manual) TEST NOT PERFORMED Monocytes % (Manual) 7 Eosinophils % (Manual) 1 Metamyelocytes % 2 H Nucleated RBC % 15 H Platelet Estimate Decreased L Large Platelets Present Giant Platelets Present Poikilocytosis (manual Slight Anisocytosis (manual) Slight Ovalocytes Slight [place] Cells Slight Sodium 136 Potassium 4.5 Chloride 107 Carbon Dioxide 15 L Anion Gap 19 BUN 100 H* Creatinine 2.6 H Est GFR ( Amer) 22 Est GFR (Non-Af Amer) 18 Random Glucose 105 Calcium 8.6 Phosphorus 5.0 H Magnesium 2.3 Iron 19 L TIBC 137 L % Saturation 14 L Total Bilirubin 0.9 AST 15 ALT 39 Alkaline Phosphatase 86 Total Protein 5.2 L Albumin 2.6 L Globulin 2.5 Albumin/Globulin Ratio 1.0 PTH Intact Whole Molec Ur Random Creatinine U Random Total Protein Urine Total Volume Microalb/Creat Ratio Urine Chloride Blood Type Antibody Screen Critical Care Progress Note - Nutrition Nutrition: Nutrition Category Date Time Status Mechanically altered [Dysphagia/Modified Consistency Diets 05/22/18 Lunch Active Diet] [DIET] Attending/Attestation - Attestation I have personally seen and examined this patient.: Yes I have fully participated in the care of the patient.: Yes I have reviewed all pertinent clinical information: Yes Notes (Text): 05/22/18 17:32 I have seen and examined the patient. Medical records, lab studies, and imaging were reviewed by me and a management plan was formulated on multidisciplinary rounds with resident Dr. De Leon. I agree with their documented assessment and plan. Patient is in inflammatory state as spleen is now necrotic. She is clinically stable but very ill. Will continue to monitor. If she decompensates, will have to consider splenectomy/necrosectomy. Critical Care Time 35 minutes. Multi-disciplinary rounds were performed with house staff, nursing, speech therapy, respiratory therapy, pharmacy and nutrition with integrated input from the primary team/attending and other consulting services. The documented time is cumulative and includes review of patient data/exams/labs/chart review and examination of the patient on rounds and throughout the day; time is exclusive of any procedures or teaching time.
[2018-05-22] MEDS ORDERED: Pantoprazole 40 mg Susp UD PO SCH (10:00)
[2018-05-22] MEDS: Pantoprazole 40 mg Susp UD PO SCH (10:55)
[2018-05-22] MEDS: Epoetin Alfa 10,000 unit/ml Dialysis SC SCH (13:46)
--- NOTE | 2018-05-22 15:10 | CP.PCM.PN ---
Subjective - Date & Time of Evaluation Date of Evaluation: 05/22/18 Time of Evaluation: 15:07 - Subjective Subjective: Nephrology Consultation Note: Assessment: critical Acute Kidney Injury (N17.9) likely due to ATN/sepsis with UTI, low BP, pre-renal state Metabolic acidosis, Hyponatremia Hypertensive Chronic Kidney Disease (I12.9) Chronic Kidney Disease (N18.3) Stage 3 with ? 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 Maintain hemodynamics stable. Avoid hypotension. Patient not on ACEI/ARB due to recent SOFIA Monitor Input/Output, daily weights and renal function with basic metabolic panel add sodium bicarb 1300 mg bid IV albumin 100 gram given bladder pressure: 16 cm H2O anemia management as per heme: started iron and MVI. PRBC 2 unit 05/21/18. added epogen as well as d/w heme started weekly ergocalciferol cotinue with gentle IVF, pt on TPN at present work up ordered as: urine analysis, spot protein/creatinine, albumin/creatinine ratio, urine Na/K/Cl, Osmol, serum Osmol C3, C4, ANCA (MPO and ID-3), HIV serology, IgG4 25-OH vitamin D, iPTH, phosphorus level. Dose meds/antibiotics for reduced GFR. Avoid fleets enema/magnesium based laxatives. Avoid nephrotoxins/NSAIDs/ iodinated contrast (unless needed emergently) Glycemic control Further work up/management as per primary team Thanks for allowing me to participate in care of your patient. Will follow patient with you. Please call if any Qs. d/w team and family bedside Dr Espinoza Wylie Office: [phone] Chief Complaint; pain abdomen Reason for consult: Acute Kidney Injury HPI: Pt is a 67 F with hx of HTN,myelofibrosis admitted recently in april with right flank pain, right hydronephrosis/pyelonephritis and Ureteral stricture s/p stent, hospital course was complicated by atrial fibrillation, right lower extremity DVT on anticoagulant developed Splenic hemorrhage s/p splenic artery embolization, hence systemic a/c was stopped. pt also with hepatosplenomegaly and extensive varices, anemia/thrombocytopenia admitted with sepsis with kelbsiella due to UTI pt also with CKD stage 3 with baseline cr 1.8-2.0 since hospitalization with AKIs Denies OTC/herbal meds or NSAIDs No recent iodinated contrast exposure. Noted obvious episodes of low BP. son bedside and helped in interpretations pt not good historian. ROS: better as per son today Cardiovascular: No chest pain. Pulmonary: No shortness of breath Gastrointestinal: improved abdominal pain No nausea. No vomiting. Genitourinary: no pain while urinating. Denies blood in urine. All other negative except as mentioned in HPI. limited ROS. pt with poor oral intake Physical Examination: General Appearance: uncomfortable, in no acute respiratory distress, co- operative . ill appearing Vitals reviewed and noted as below Head; Atraumatic, normocephalic ENT: no ulcers no thrush. Tongue is midline. Oropharynx: no rash or ulcers. EYES: Pupils are equal, round and reactive to light accommodation. Eye muscles and extraocular movement intact. Sclera is anicteric. Neck; supple no lymphadenopathy, no thyromegaly or bruit Lungs: Increased respiratory rate/effort. Breath sounds bilateral equal and few rales + Heart: Incresaed rate. s1s2 normal. No rub or gallop. Extremities: no edema. No varicose veins Neurological: Patient is alert, awake and oriented to person, place and time. No focal deficit. Strength bilateral appropriate and equal Skin: Warm and dry. Normal turgor. No rash. Palpitation: Normal elasticity for a ge Abdomen: Abdomen is soft. Bowel sounds +. There is improved abdominal tenderness without guarding no rigidity no organomegaly Psych: limited insight and normal affect/mood MSK: no joint tenderness or swelling. Digits and nails normal, no deformity : kidney or bladder not palpable Labs/imaging reviewed. Past medical history, past surgical history, family history, social history, allergy reviewed and noted as below Family hx: no hx of CKD. Rest non-contributory echo moderate pHTN, normal LVEF UA 2+ protein 3+ blood TRACEY and Hep B/C neg Fena 0.5% Objective - Vital Signs/Intake and Output Vital Signs (last 24 hours): Temp Pulse Resp BP Pulse Ox 98.0 F 112 H 28 H 112/61 96 05/22/18 12:00 05/22/18 13:59 05/22/18 13:59 05/22/18 14:00 05/22/18 13:59 Intake and Output: 05/22/18 05/22/18 06:59 18:59 Intake Total 1045 310 Output Total 635 270 Balance 410 40 - Medications Medications: Current Medications Acetaminophen (Tylenol 325mg Tab) 650 mg PO Q6 PRN PRN Reason: Fever >100.4 F Last Admin: 05/19/18 19:00 Dose: 650 mg Albuterol/Ipratropium (Duoneb 3 Mg/0.5 Mg (3 Ml) Ud) 3 ml INH RQ6 [facility] Last Admin: 05/22/18 08:38 Dose: 3 ml Enoxaparin Sodium (Lovenox) 30 mg SC DAILY [facility] Last Admin: 05/21/18 10:40 Dose: 30 mg Epoetin Koby (Procrit) 8,000 unit SC TTS NAN Ergocalciferol (Drisdol 50,000 Intl Units Cap) 1 cap PO Q7D [facility] Last Admin: 05/21/18 11:56 Dose: 1 cap Ferrous Gluconate (Fergon) 324 mg PO TID [facility] Last Admin: 05/22/18 10:54 Dose: 324 mg Hydroxyurea (Hydrea) 500 mg PO BID [facility] Last Admin: 05/15/18 10:00 Dose: 500 mg Ceftazidime/Avibactam 0.94 gm/ (Sodium Chloride) 100 mls @ 50 mls/hr IV Q12H [facility]; Protocol Last Admin: 05/22/18 05:30 Dose: 50 mls/hr Multivitamins/Vitamin C 10 ml/Chromium/Copper/Manganese/Zinc 1 ml/ Parenteral Electrolytes 20 ml/ Amino Acids 1,031 mls @ 42 mls/hr IV .Q24H ONE Stop: 05/22/18 17:59 Last Admin: 05/21/18 17:35 Dose: 42 mls/hr Metronidazole (Flagyl) 500 mg in 100 mls @ 100 mls/hr IVPB Q8H [facility]; Protocol Last Admin: 05/22/18 08:36 Dose: 100 mls/hr Chromium/Copper/Manganese/Zinc 1 ml/ Multivitamins/Vitamin C 10 ml/ Amino Acids 1,011 mls @ 42 mls/hr IV .Q24H [facility] Pantoprazole Sodium (Protonix Susp) 40 mg PO DAILY [facility] Last Admin: 05/22/18 10:55 Dose: 40 mg Sodium Bicarbonate (Sodium Bicarbonate Tab) 1,300 mg PO BID [facility] Last Admin: 05/22/18 10:54 Dose: 1,300 mg Tramadol HCl (Ultram) 25 mg NG TID PRN PRN Reason: Pain, severe (8-10) Vitamin B Complex/Vit C/Folic Acid (Nephro-Charlie) 1 tab PO 0800 [facility] Last Admin: 05/22/18 08:36 Dose: 1 tab - Labs Labs: 05/22/18 05:53 05/22/18 05:53 PT 19.5 SECONDS (9.7-12.2) H 05/21/18 09:52 INR 1.8 05/21/18 09:52 APTT 34 SECONDS (21-34) 05/21/18 09:52
[2018-05-22] MEDS ORDERED: PPN # 2 IV SCH (18:00)
--- NOTE | 2018-05-22 19:02 | CP.PCM.PN ---
Subjective - Date & Time of Evaluation Date of Evaluation: 05/22/18 Time of Evaluation: 17:00 - Subjective Subjective: Feeling better Son at bedside. Objective - Vital Signs/Intake and Output Vital Signs (last 24 hours): Temp Pulse Resp BP Pulse Ox 98.0 F 112 H 28 H 112/64 96 05/22/18 12:00 05/22/18 13:59 05/22/18 13:59 05/22/18 17:45 05/22/18 13:59 Intake and Output: 05/22/18 05/23/18 18:59 06:59 Intake Total 310 Output Total 270 Balance 40 - Medications Medications: Current Medications Acetaminophen (Tylenol 325mg Tab) 650 mg PO Q6 PRN PRN Reason: Fever >100.4 F Last Admin: 05/19/18 19:00 Dose: 650 mg Albuterol/Ipratropium (Duoneb 3 Mg/0.5 Mg (3 Ml) Ud) 3 ml INH RQ6 [facility] Last Admin: 05/22/18 08:38 Dose: 3 ml Enoxaparin Sodium (Lovenox) 30 mg SC DAILY [facility] Last Admin: 05/21/18 10:40 Dose: 30 mg Epoetin Koby (Procrit) 8,000 unit SC TTS [facility] Last Admin: 05/22/18 13:46 Dose: 8,000 unit Ergocalciferol (Drisdol 50,000 Intl Units Cap) 1 cap PO Q7D [facility] Last Admin: 05/21/18 11:56 Dose: 1 cap Ferrous Gluconate (Fergon) 324 mg PO TID [facility] Last Admin: 05/22/18 17:45 Dose: 324 mg Hydroxyurea (Hydrea) 500 mg PO BID [facility] Last Admin: 05/15/18 10:00 Dose: 500 mg Ceftazidime/Avibactam 0.94 gm/ (Sodium Chloride) 100 mls @ 50 mls/hr IV Q12H [facility]; Protocol Last Admin: 05/22/18 17:46 Dose: 50 mls/hr Metronidazole (Flagyl) 500 mg in 100 mls @ 100 mls/hr IVPB Q8H [facility]; Protocol Last Admin: 05/22/18 17:46 Dose: 100 mls/hr Pantoprazole Sodium (Protonix Susp) 40 mg PO DAILY [facility] Last Admin: 05/22/18 10:55 Dose: 40 mg Sodium Bicarbonate (Sodium Bicarbonate Tab) 1,300 mg PO BID [facility] Last Admin: 05/22/18 18:08 Dose: 1,300 mg Tramadol HCl (Ultram) 25 mg NG TID PRN PRN Reason: Pain, severe (8-10) Last Admin: 05/22/18 07:47 Dose: 25 mg Vitamin B Complex/Vit C/Folic Acid (Nephro-Charlie) 1 tab PO 0800 [facility] Last Admin: 05/22/18 08:36 Dose: 1 tab - Labs Labs: 05/22/18 05:53 05/22/18 05:53 PT 19.5 SECONDS (9.7-12.2) H 05/21/18 09:52 INR 1.8 05/21/18 09:52 APTT 34 SECONDS (21-34) 05/21/18 09:52 - Head Exam Head Exam: ATRAUMATIC - Eye Exam Eye Exam: Normal appearance - ENT Exam ENT Exam: Mucous Membranes Dry - Respiratory Exam Respiratory Exam: NORMAL BREATHING PATTERN - Cardiovascular Exam Cardiovascular Exam: +S1, +S2 - GI/Abdominal Exam GI & Abdominal Exam: Normal Bowel Sounds Assessment and Plan (1) Thrombocytopenia Assessment & Plan: 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
[2018-05-22 19:06] LABS: BASO % 0.3 % (0.0-2.0); EOS # 0.3 K/uL (0.0-0.7); EOS % 2.2 % (0.0-4.0); HEMOGLOBIN 9.9 g/dL (11.0-16.0); LYMPH # 0.3 K/uL (1.0-4.3); LYMPH % 2.1 % (20.0-40.0); MEAN CELL VOLUME 90.5 fL (81.0-99.0); MEAN CORPUSCULAR HEMOGLOBIN 29.3 pg (27.0-31.0); MEAN CORPUSCULAR HGB CONC 32.3 g/dL (33.0-37.0); MEAN PLATELET VOLUME 10.7 fL (7.2-11.7); MONO # 0.6 K/uL (0.0-0.8); MONO % 4.5 % (0.0-10.0); NEUT # 12.1 K/uL (1.8-7.0); NEUT % 90.9 % (50.0-75.0); RBC 3.39 Mil/uL (3.80-5.20); RED CELL DISTRIBUTION WIDTH 18.9 % (11.5-14.5)
[2018-05-22 19:10] LABS: PLATELET COUNT 24 K/uL (130-400)
--- NOTE | 2018-05-22 19:57 | CP.PCM.PN ---
Subjective - Date & Time of Evaluation Date of Evaluation: 05/22/18 Time of Evaluation: 11:00 - Subjective Subjective: clinically same Objective - Vital Signs/Intake and Output Vital Signs (last 24 hours): Temp Pulse Resp BP Pulse Ox 98.1 F 109 H 34 H 110/64 84 L 05/22/18 16:00 05/22/18 19:00 05/22/18 19:00 05/22/18 19:00 05/22/18 18:00 Intake and Output: 05/22/18 05/23/18 18:59 06:59 Intake Total 736 Output Total 270 Balance 466 - Medications Medications: Current Medications Acetaminophen (Tylenol 325mg Tab) 650 mg PO Q6 PRN PRN Reason: Fever >100.4 F Last Admin: 05/19/18 19:00 Dose: 650 mg Albuterol/Ipratropium (Duoneb 3 Mg/0.5 Mg (3 Ml) Ud) 3 ml INH RQ6 [facility] Last Admin: 05/22/18 08:38 Dose: 3 ml Enoxaparin Sodium (Lovenox) 30 mg SC DAILY [facility] Last Admin: 05/21/18 10:40 Dose: 30 mg Epoetin Koby (Procrit) 8,000 unit SC TTS [facility] Last Admin: 05/22/18 13:46 Dose: 8,000 unit Ergocalciferol (Drisdol 50,000 Intl Units Cap) 1 cap PO Q7D [facility] Last Admin: 05/21/18 11:56 Dose: 1 cap Ferrous Gluconate (Fergon) 324 mg PO TID [facility] Last Admin: 05/22/18 17:45 Dose: 324 mg Hydroxyurea (Hydrea) 500 mg PO BID [facility] Last Admin: 05/15/18 10:00 Dose: 500 mg Ceftazidime/Avibactam 0.94 gm/ (Sodium Chloride) 100 mls @ 50 mls/hr IV Q12H [facility]; Protocol Last Admin: 05/22/18 17:46 Dose: 50 mls/hr Metronidazole (Flagyl) 500 mg in 100 mls @ 100 mls/hr IVPB Q8H [facility]; Protocol Last Admin: 05/22/18 17:46 Dose: 100 mls/hr Pantoprazole Sodium (Protonix Susp) 40 mg PO DAILY [facility] Last Admin: 05/22/18 10:55 Dose: 40 mg Sodium Bicarbonate (Sodium Bicarbonate Tab) 1,300 mg PO BID [facility] Last Admin: 05/22/18 18:08 Dose: 1,300 mg Tramadol HCl (Ultram) 25 mg NG TID PRN PRN Reason: Pain, severe (8-10) Last Admin: 05/22/18 07:47 Dose: 25 mg Vitamin B Complex/Vit C/Folic Acid (Nephro-Charlie) 1 tab PO 0800 [facility] Last Admin: 05/22/18 08:36 Dose: 1 tab - Labs Labs: 05/22/18 18:56 05/22/18 05:53 PT 19.5 SECONDS (9.7-12.2) H 05/21/18 09:52 INR 1.8 05/21/18 09:52 APTT 34 SECONDS (21-34) 05/21/18 09:52 - Constitutional Appears: Well - Head Exam Head Exam: ATRAUMATIC, NORMAL INSPECTION, NORMOCEPHALIC - Eye Exam Eye Exam: EOMI, Normal appearance, PERRL Pupil Exam: NORMAL ACCOMODATION, PERRL - ENT Exam ENT Exam: Mucous Membranes Moist, Normal Exam - Neck Exam Neck Exam: Full ROM, Normal Inspection. absent: Lymphadenopathy - Respiratory Exam Respiratory Exam: Decreased Breath Sounds - Cardiovascular Exam Cardiovascular Exam: REGULAR RHYTHM, +S1, +S2 - GI/Abdominal Exam GI & Abdominal Exam: Soft, Diminished Bowel Sounds - Rectal Exam Rectal Exam: Deferred Assessment and Plan (1) Abdominal pain Status: Acute (2) Anemia Status: Acute (3) Atrial fibrillation, new onset Status: Acute (4) CHF (congestive heart failure) Status: Acute (5) DVT (deep venous thrombosis) Status: Acute (6) Elevated brain natriuretic peptide (BNP) level Status: Acute (7) Hepatosplenomegaly Status: Acute (8) Hydronephrosis, right Status: Acute (9) Leucocytosis Status: Acute (10) Myelofibrosis Status: Acute (11) Portal vein thrombosis Status: Acute (12) Prophylactic measure Status: Acute (13) Pyelonephritis Status: Acute (14) Pyelonephritis due to Escherichia coli Status: Acute (15) Renal insufficiency Status: Acute (16) Spleen hematoma Status: Acute (17) Splenic hemorrhage Status: Acute (18) Thrombocytopenia Status: Acute (19) UTI (urinary tract infection) Status: Acute (20) Varices of other sites Status: Acute - Assessment and Plan (Free Text) Plan: Patient seen and examined at bedside Discussed with staff Overnight events noted Family at bedside Nephrology follow-up Monitor input and output IV fluids On TPN Workup as ordered Close monitoring
[2018-05-22 23:00] LABS: NRBC % 11.1 % (0.0-2.0); WHITE BLOOD COUNT 13.3 K/uL (4.8-10.8)
[2018-05-22 23:03] LABS: BANDS 7 % (0-2); LYMPHOCYTE 5 % (20-40); METAMYELOCYTE 1 % (0-0); MONOCYTE 10 % (0-10); NEUTROPHIL 77 % (50-75); PLATELET ESTIMATE MARKEDLY DECREASED (NORMAL); TOTAL CELLS COUNTED 100
--- NOTE | 2018-05-22 23:03 | CARD ---
APPROVED REPORT Date of service: 05/21/2018 EKG Measurement Heart [id number] <Conclusion> Sinus tachycardia Otherwise normal ECG
[2018-05-22 23:04] LABS: ANISOCYTOSIS SLIGHT; MICROCYTOSIS SLIGHT; POIKILOCYTOSIS SLIGHT
--- NOTE | 2018-05-22 23:21 | CP.PCM.PN ---
Subjective - Date & Time of Evaluation Date of Evaluation: 05/22/18 Time of Evaluation: 10:10 - Subjective Subjective: Resident Critical Care Progress Note Patient examined at bedside. Appears anxious and is complaining of discomfort due to the NG tube Denies chest pain Physical Examination - Vital Signs / Intake & Output Vital Signs (Last 4 hours): Vital Signs Pulse Resp BP Pulse Ox 05/22/18 07:00 112 H 24 120/66 94 L 05/22/18 06:00 107 H 27 H 113/66 97 05/22/18 05:00 108 H 21 111/67 97 Intake and Output (Last 8hrs): Intake & Output 05/21/18 05/22/18 05/22/18 22:59 06:59 14:59 Intake Total 1256 536 42 Output Total 310 450 Balance 946 86 42 Weight 187 lb 2 oz Intake: Intake, IV Amount 326 536 42 Right Distal Port PICC 84 336 42 Right PICC 200 Right Proximal Port PICC 0 200 r PICC 42 Blood Product 650 Red Blood Cells Cpd As1 325 Lr Unit [id number] Red Blood Cells Cpd As1 325 Lr Unit [id number] Other 280 Red Blood Cells Cpd As1 50 Lr Unit [id number] Red Blood Cells Cpd As1 50 Lr Unit [id number] Output: Gastric Amount 0 0 Right Nares 0 0 Urine 310 450 Urethral (Addison) 310 450 - Physical Exam Head: Positive for: Atraumatic, Normocephalic Pupils: Positive for: PERRL Extroacular Muscles: Positive for: EOMI Conjunctiva: Positive for: Normal Ears: Positive for: Normal Mouth: Positive for: Moist Mucous Membranes Nose (External): Positive for: Atraumatic Neck: Positive for: Normal Range of Motion Respiratory/Chest: Positive for: Good Air Exchange, Rhonchi. Negative for: Re spiratory Distress Cardiovascular: Positive for: Regular Rate and Rhythm, Normal S1, S2 Abdomen: Positive for: Tenderness (diffuse ), Distention. Negative for: Peritoneal Signs, Rebound Upper Extremity: Positive for: Normal Inspection. Negative for: Cyanosis, Edema Lower Extremity: Positive for: Normal Inspection, Edema. Negative for: CALF TENDERNESS Neurological: Positive for: GCS=15, CN II-XII Intact, Speech Normal Skin: Positive for: Dry, Normal Color. Negative for: Rashes Psychiatric: Positive for: Alert, Oriented x 3, Anxious Objective - Vital Signs/Intake and Output Vital Signs (last 24 hours): Temp Pulse Resp BP Pulse Ox 98.1 F 105 H 17 106/59 L 98 05/22/18 20:00 05/22/18 21:00 05/22/18 21:00 05/22/18 21:00 05/22/18 21:00 Intake and Output: 05/22/18 05/23/18 18:59 06:59 Intake Total 736 Output Total 270 450 Balance 466 -450 - Medications Medications: Current Medications Acetaminophen (Tylenol 325mg Tab) 650 mg PO Q6 PRN PRN Reason: Fever >100.4 F Last Admin: 05/19/18 19:00 Dose: 650 mg Albuterol/Ipratropium (Duoneb 3 Mg/0.5 Mg (3 Ml) Ud) 3 ml INH RQ6 [facility] Last Admin: 05/22/18 19:11 Dose: Not Given Enoxaparin Sodium (Lovenox) 30 mg SC DAILY [facility] Last Admin: 05/21/18 10:40 Dose: 30 mg Epoetin Koby (Procrit) 8,000 unit SC TTS [facility] Last Admin: 05/22/18 13:46 Dose: 8,000 unit Ergocalciferol (Drisdol 50,000 Intl Units Cap) 1 cap PO Q7D [facility] Last Admin: 05/21/18 11:56 Dose: 1 cap Ferrous Gluconate (Fergon) 324 mg PO TID [facility] Last Admin: 05/22/18 17:45 Dose: 324 mg Hydroxyurea (Hydrea) 500 mg PO BID [facility] Last Admin: 05/15/18 10:00 Dose: 500 mg Ceftazidime/Avibactam 0.94 gm/ (Sodium Chloride) 100 mls @ 50 mls/hr IV Q12H [facility]; Protocol Last Admin: 05/22/18 17:46 Dose: 50 mls/hr Metronidazole (Flagyl) 500 mg in 100 mls @ 100 mls/hr IVPB Q8H [facility]; Protocol Last Admin: 05/22/18 17:46 Dose: 100 mls/hr Pantoprazole Sodium (Protonix Susp) 40 mg PO DAILY [facility] Last Admin: 05/22/18 10:55 Dose: 40 mg Sodium Bicarbonate (Sodium Bicarbonate Tab) 1,300 mg PO BID [facility] Last Admin: 05/22/18 18:08 Dose: 1,300 mg Tramadol HCl (Ultram) 25 mg NG TID PRN PRN Reason: Pain, severe (8-10) Last Admin: 05/22/18 07:47 Dose: 25 mg Vitamin B Complex/Vit C/Folic Acid (Nephro-Charlie) 1 tab PO 0800 [facility] Last Admin: 05/22/18 08:36 Dose: 1 tab - Labs Labs: 05/22/18 18:56 05/22/18 05:53 PT 19.5 SECONDS (9.7-12.2) H 05/21/18 09:52 INR 1.8 05/21/18 09:52 APTT 34 SECONDS (21-34) 05/21/18 09:52 Assessment and Plan - Assessment and Plan (Free Text) Assessment: (1) Thrombocytopenia Assessment & Plan: 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
[2018-05-23] MEDS: metroNIDAZOLE IV 500 mg/100 ml 500 MG/100 ML BAG IVPB SCH ×3 (00:40→17:41)
[2018-05-23] MEDS: Albuterol-Ipratrop 3 mg / 0.5 (3 ml) UD INH SCH ×4 (01:05→21:29)
[2018-05-23 06:37] LABS: BASO # 0.1 K/uL (0.0-0.2); BASO % 0.6 % (0.0-2.0); EOS # 0.3 K/uL (0.0-0.7); EOS % 2.3 % (0.0-4.0); HEMOGLOBIN 9.9 g/dL (11.0-16.0); LYMPH # 0.4 K/uL (1.0-4.3); LYMPH % 2.8 % (20.0-40.0); MEAN CELL VOLUME 89.9 fL (81.0-99.0); MEAN CORPUSCULAR HEMOGLOBIN 29.6 pg (27.0-31.0); MEAN CORPUSCULAR HGB CONC 32.9 g/dL (33.0-37.0); MEAN PLATELET VOLUME 11.2 fL (7.2-11.7); MONO # 0.7 K/uL (0.0-0.8); MONO % 5.2 % (0.0-10.0); NEUT # 11.3 K/uL (1.8-7.0); NEUT % 89.1 % (50.0-75.0); NRBC % 9.5 % (0.0-2.0); RBC 3.34 Mil/uL (3.80-5.20); RED CELL DISTRIBUTION WIDTH 18.9 % (11.5-14.5); WHITE BLOOD COUNT 12.7 K/uL (4.8-10.8)
[2018-05-23 07:07] LABS: ALBUMIN 2.6 g/dL (3.5-5.0); CALCIUM 8.6 mg/dl (8.6-10.4)
[2018-05-23 07:13] LABS: PLATELET COUNT 13 K/uL (130-400)
--- NOTE | 2018-05-23 07:55 | CP.PCM.PN ---
Subjective - Date & Time of Evaluation Date of Evaluation: 05/23/18 Time of Evaluation: 07:52 - Subjective Subjective: Surgery Pt seen and examined. Denies pain. reports coughing. Platelet is 13 this AM. Plan for Platelet transfusion. Poor intake. Objective - Vital Signs/Intake and Output Vital Signs (last 24 hours): Temp Pulse Resp BP Pulse Ox 97 F L 107 H 23 117/68 98 05/23/18 04:00 05/23/18 05:00 05/23/18 05:00 05/23/18 05:00 05/23/18 05:00 Intake and Output: 05/23/18 05/23/18 06:59 18:59 Intake Total 150 Output Total 930 Balance -780 - Medications Medications: Current Medications Acetaminophen (Tylenol 325mg Tab) 650 mg PO Q6 PRN PRN Reason: Fever >100.4 F Last Admin: 05/19/18 19:00 Dose: 650 mg Albuterol/Ipratropium (Duoneb 3 Mg/0.5 Mg (3 Ml) Ud) 3 ml INH RQ6 [facility] Last Admin: 05/23/18 01:05 Dose: Not Given Enoxaparin Sodium (Lovenox) 30 mg SC DAILY [facility] Last Admin: 05/21/18 10:40 Dose: 30 mg Epoetin Koby (Procrit) 8,000 unit SC TTS [facility] Last Admin: 05/22/18 13:46 Dose: 8,000 unit Ergocalciferol (Drisdol 50,000 Intl Units Cap) 1 cap PO Q7D [facility] Last Admin: 05/21/18 11:56 Dose: 1 cap Ferrous Gluconate (Fergon) 324 mg PO TID [facility] Last Admin: 05/22/18 17:45 Dose: 324 mg Hydroxyurea (Hydrea) 500 mg PO BID [facility] Last Admin: 05/15/18 10:00 Dose: 500 mg Ceftazidime/Avibactam 0.94 gm/ (Sodium Chloride) 100 mls @ 50 mls/hr IV Q12H [facility]; Protocol Last Admin: 05/23/18 05:35 Dose: 50 mls/hr Metronidazole (Flagyl) 500 mg in 100 mls @ 100 mls/hr IVPB Q8H [facility]; Protocol Last Admin: 05/23/18 00:40 Dose: 100 mls/hr Pantoprazole Sodium (Protonix Susp) 40 mg PO DAILY [facility] Last Admin: 05/22/18 10:55 Dose: 40 mg Sodium Bicarbonate (Sodium Bicarbonate Tab) 1,300 mg PO BID [facility] Last Admin: 05/22/18 18:08 Dose: 1,300 mg Tramadol HCl (Ultram) 25 mg NG TID PRN PRN Reason: Pain, severe (8-10) Last Admin: 05/22/18 07:47 Dose: 25 mg Vitamin B Complex/Vit C/Folic Acid (Nephro-Charlie) 1 tab PO 0800 [facility] Last Admin: 05/22/18 08:36 Dose: 1 tab - Labs Labs: 05/23/18 06:21 05/23/18 06:19 PT 19.5 SECONDS (9.7-12.2) H 05/21/18 09:52 INR 1.8 05/21/18 09:52 APTT 34 SECONDS (21-34) 05/21/18 09:52 - Constitutional Appears: Non-toxic, Chronically Ill - Head Exam Head Exam: ATRAUMATIC, NORMAL INSPECTION, NORMOCEPHALIC - Eye Exam Eye Exam: EOMI, Normal appearance, PERRL Pupil Exam: NORMAL ACCOMODATION, PERRL - ENT Exam ENT Exam: Mucous Membranes Moist, Normal Exam - Neck Exam Neck Exam: Full ROM, Normal Inspection. absent: Lymphadenopathy - Respiratory Exam Respiratory Exam: NORMAL BREATHING PATTERN - Cardiovascular Exam Cardiovascular Exam: Tachycardia - GI/Abdominal Exam GI & Abdominal Exam: Soft. absent: Distended, Firm, Tenderness - Extremities Exam Extremities Exam: Full ROM, Normal Capillary Refill, Normal Inspection. absent: Joint Swelling, Pedal Edema - Back Exam Back Exam: NORMAL INSPECTION - Neurological Exam Neurological Exam: Alert, Awake, CN II-XII Intact, Normal Gait, Oriented x3 - Psychiatric Exam Psychiatric exam: Normal Affect, Normal Mood - Skin Skin Exam: Dry, Intact, Normal Color, Warm Assessment and Plan - Assessment and Plan (Free Text) Assessment: 67F with enlarging splenomegaly and anemia s/p IR embolization Hgb 10 Platelet 13 Plan: surgical intervention when patient can tolerate transfuse PRN will d/w Dr Ramirez any plans for intervention this admission further recs to follow
[2018-05-23] MEDS: Multivitamin Vitamin B Complex (Nephro-Vite) Tab PO SCH (08:05)
[2018-05-23 08:35] LABS: BANDS 11 % (0-2); BASOPHIL 1 % (0-2); EOSINOPHIL 4 % (0-4); LYMPHOCYTE 2 % (20-40); METAMYELOCYTE 3 % (0-0); MONOCYTE 5 % (0-10); MYELOCYTE 1 % (0-0); NEUTROPHIL 73 % (50-75); NUCLEATED RED BLOOD CELL 22 % (0-0); TOTAL CELLS COUNTED 100
[2018-05-23 08:36] LABS: ANISOCYTOSIS SLIGHT; HYPOCHROMIC SLIGHT; PLATELET ESTIMATE MARKEDLY DECREASED (NORMAL); SCHISTOCYTES SLIGHT
[2018-05-23 08:37] LABS: BURR CELLS SLIGHT; GIANT PLATELETS PRESENT; LARGE PLATELETS PRESENT; POIKILOCYTOSIS MODERATE; TARGET CELLS SLIGHT
[2018-05-23 08:38] LABS: OVALOCYTES SLIGHT
[2018-05-23] MEDS ORDERED: Metoprolol 1 mg/ml Inj IVP ONE ×3 (08:50→10:34)
[2018-05-23] MEDS ORDERED: Metoprolol 1 mg/ml Inj ONE ×2 (09:01→10:41)
--- NOTE | 2018-05-23 09:44 | CP.CCUPN ---
<Terrance Fragoso - Last Filed: 05/23/18 14:45> CCU Objective - Vital Signs / Intake & Output Vital Signs (Last 4 hours): Vital Signs Temp Pulse Resp BP Pulse Ox 05/23/18 13:25 128 H 05/23/18 13:00 128 H 40 H 87 L 05/23/18 12:52 121 H 28 H 99/57 L 86 L 05/23/18 12:14 118 H 34 H 92/55 L 92 L 05/23/18 12:00 97.3 F L 125 H 28 H 94 L 05/23/18 11:52 129 H 35 H 97/59 L 93 L 05/23/18 11:50 122 H 30 H 90/53 L 92 L 05/23/18 11:00 120 H 37 H 90 L 05/23/18 10:52 120 H 37 H 90/53 L 90 L 05/23/18 10:41 137 H 36 H 104/57 L 89 L 05/23/18 10:00 144 H 41 H 88 L Intake and Output (Last 8hrs): Intake & Output 05/22/18 05/23/18 05/23/18 22:59 06:59 14:59 Intake Total 342 200 844 Output Total 450 530 290 Balance -108 -330 554 Weight 195 lb Intake: Intake, IV Amount 242 200 200 Right Distal Port PICC 42 200 200 Right Proximal Port PICC 200 Oral 100 200 Blood Product 394 Apheresis Plts Acda Lr 197 3rd Con Unit [id number] Other 50 Apheresis Plts Acda Lr 50 3rd Con Unit [id number] Output: Urine 450 530 290 Urethral (Addison) 450 530 290 Other: # Bowel Movements 0 - Medications Active Medications: Active Medications Generic Name Dose Route Start Last Admin Trade Name Freq PRN Reason Stop Dose Admin Acetaminophen 650 mg 05/15/18 08:56 05/19/18 19:00 Tylenol 325mg Tab PO 650 mg Q6 PRN Administration Fever >100.4 F Albuterol/Ipratropium 3 ml 05/15/18 12:00 05/23/18 13:27 Duoneb 3 Mg/0.5 Mg (3 Ml) Ud INH Not Given RQ6 NAN Enoxaparin Sodium 30 mg 05/15/18 10:00 05/21/18 10:40 Lovenox SC 30 mg DAILY NAN Administration Epoetin Koby 8,000 unit 05/22/18 10:00 05/22/18 13:46 Procrit SC 8,000 unit TTS NAN Administration Ergocalciferol 1 cap 05/21/18 11:00 05/21/18 11:56 Drisdol 50,000 Intl Units Cap PO 1 cap Q7D NAN Administration Ferrous Gluconate 324 mg 05/21/18 14:00 05/23/18 09:47 Fergon PO 324 mg TID NAN Administration Hydroxyurea 500 mg 05/15/18 10:00 05/15/18 10:00 Hydrea PO 500 mg BID NAN Administration Ceftazidime/Avibactam 0.94 gm/ 100 mls @ 50 mls/hr 05/21/18 06:00 05/23/18 05:35 Sodium Chloride IV 50 mls/hr Q12H NAN Administration Protocol Metronidazole 500 mg in 100 mls @ 100 mls/hr 05/21/18 17:00 05/23/18 09:13 Flagyl IVPB 100 mls/hr Q8H NAN Administration Protocol Metoprolol Tartrate 5 mg 05/23/18 11:15 05/23/18 13:56 Lopressor IVP Not Given Q6H NAN Metoprolol Tartrate 5 mg 05/23/18 18:00 Lopressor IVP Q6 NAN Pantoprazole Sodium 40 mg 05/23/18 10:00 05/23/18 09:49 Protonix Ec Tab PO 40 mg DAILY NAN Administration Sodium Bicarbonate 1,300 mg 05/20/18 18:00 05/23/18 09:47 Sodium Bicarbonate Tab PO 1,300 mg BID NAN Administration Tramadol HCl 25 mg 05/22/18 07:16 05/22/18 07:47 Ultram NG 25 mg TID PRN Administration Pain, severe (8-10) Vitamin B Complex/Vit C/Folic Acid 1 tab 05/22/18 08:00 05/23/18 08:05 Nephro-Charlie PO 1 tab 0800 NAN Administration - Patient Studies Lab Studies: Microbiology Studies 05/17/18 11:50 Blood Culture - Final Blood NO GROWTH AFTER 5 DAYS Gram Stain - Final TEST NOT PERFORMED 05/17/18 11:50 Blood Culture - Final Blood NO GROWTH AFTER 5 DAYS Gram Stain - Final TEST NOT PERFORMED Lab Studies 05/23/18 05/23/18 05/22/18 Range/Units 06:21 06:19 18:56 WBC 12.7 H 13.3 H (4.8-10.8) K/uL RBC 3.34 L 3.39 L (3.80-5.20) Mil/uL Hgb 9.9 L 9.9 L (11.0-16.0) g/dL Hct 30.0 L 30.7 L (34.0-47.0) % MCV 89.9 90.5 (81.0-99.0) fL MCH 29.6 29.3 (27.0-31.0) pg MCHC 32.9 L 32.3 L (33.0-37.0) g/dL RDW 18.9 H 18.9 H (11.5-14.5) % Plt Count 13 L* D 24 L* D (130-400) K/uL MPV 11.2 10.7 (7.2-11.7) fL Neut % (Auto) 89.1 H 90.9 H (50.0-75.0) % Lymph % (Auto) 2.8 L 2.1 L (20.0-40.0) % Hood % (Auto) 5.2 4.5 (0.0-10.0) % Eos % (Auto) 2.3 2.2 (0.0-4.0) % Baso % (Auto) 0.6 0.3 (0.0-2.0) % Neut # (Auto) 11.3 H 12.1 H (1.8-7.0) K/uL Lymph # (Auto) 0.4 L 0.3 L (1.0-4.3) K/uL Hood # (Auto) 0.7 0.6 (0.0-0.8) K/uL Eos # (Auto) 0.3 0.3 (0.0-0.7) K/uL Baso # (Auto) 0.1 0.0 (0.0-0.2) K/uL Neutrophils % (Manual) 73 77 H (50-75) % Band Neutrophils % 11 H* 7 H (0-2) % Lymphocytes % (Manual) 2 L 5 L (20-40) % Monocytes % (Manual) 5 10 (0-10) % Eosinophils % (Manual) 4 (0-4) % Basophils % (Manual) 1 (0-2) % Metamyelocytes % 3 H 1 H (0-0) % Myelocytes % 1 H (0-0) % Nucleated RBC % 22 H (0-0) % Platelet Estimate Markedly decreased L Markedly decreased L (NORMAL) Large Platelets Present Giant Platelets Present Hypochromasia (manual) Slight Poikilocytosis (manual Moderate Slight Anisocytosis (manual) Slight Slight Microcytosis (manual) Slight Target Cells Slight Ovalocytes Slight Linn Cells Slight Schistocytes Slight Sodium 137 (132-148) mmol/L Potassium 4.4 (3.6-5.2) mmol/L Chloride 108 H (98-107) mmol/L Carbon Dioxide 17 L (22-30) mmol/L Anion Gap 16 (10-20) BUN 106 H* (7-17) mg/dL Creatinine 2.6 H (0.7-1.2) mg/dL Est GFR ( Amer) 22 Est GFR (Non-Af Amer) 18 Random Glucose 97 (65-105) mg/dL Calcium 8.6 (8.6-10.4) mg/dl Phosphorus 4.4 (2.5-4.5) mg/dL Magnesium 2.3 (1.6-2.3) mg/dL Total Bilirubin 0.7 (0.2-1.3) mg/dL AST 8 L D (14-36) U/L ALT 33 (9-52) U/L Alkaline Phosphatase 85 (38-126) U/L Total Protein 5.1 L (6.3-8.3) g/dL Albumin 2.6 L (3.5-5.0) g/dL Globulin 2.5 (2.2-3.9) gm/dL Albumin/Globulin Ratio 1.0 (1.0-2.1) PTH Intact Whole Molec (14-64) pg/mL 05/21/18 Range/Units 08:55 WBC (4.8-10.8) K/uL RBC (3.80-5.20) Mil/uL Hgb (11.0-16.0) g/dL Hct (34.0-47.0) % MCV (81.0-99.0) fL MCH (27.0-31.0) pg MCHC (33.0-37.0) g/dL RDW (11.5-14.5) % Plt Count (130-400) K/uL MPV (7.2-11.7) fL Neut % (Auto) (50.0-75.0) % Lymph % (Auto) (20.0-40.0) % Hood % (Auto) (0.0-10.0) % Eos % (Auto) (0.0-4.0) % Baso % (Auto) (0.0-2.0) % Neut # (Auto) (1.8-7.0) K/uL Lymph # (Auto) (1.0-4.3) K/uL Hood # (Auto) (0.0-0.8) K/uL Eos # (Auto) (0.0-0.7) K/uL Baso # (Auto) (0.0-0.2) K/uL Neutrophils % (Manual) (50-75) % Band Neutrophils % (0-2) % Lymphocytes % (Manual) (20-40) % Monocytes % (Manual) (0-10) % Eosinophils % (Manual) (0-4) % Basophils % (Manual) (0-2) % Metamyelocytes % (0-0) % Myelocytes % (0-0) % Nucleated RBC % (0-0) % Platelet Estimate (NORMAL) Large Platelets Giant Platelets Hypochromasia (manual) Poikilocytosis (manual Anisocytosis (manual) Microcytosis (manual) Target Cells Ovalocytes Fatmata Cells Schistocytes Sodium (132-148) mmol/L Potassium (3.6-5.2) mmol/L Chloride (98-107) mmol/L Carbon Dioxide (22-30) mmol/L Anion Gap (10-20) BUN (7-17) mg/dL Creatinine (0.7-1.2) mg/dL Est GFR ( Amer) Est GFR (Non-Af Amer) Random Glucose (65-105) mg/dL Calcium (8.6-10.4) mg/dl Phosphorus (2.5-4.5) mg/dL Magnesium (1.6-2.3) mg/dL Total Bilirubin (0.2-1.3) mg/dL AST (14-36) U/L ALT (9-52) U/L Alkaline Phosphatase (38-126) U/L Total Protein (6.3-8.3) g/dL Albumin (3.5-5.0) g/dL Globulin (2.2-3.9) gm/dL Albumin/Globulin Ratio (1.0-2.1) PTH Intact Whole Molec 24 (14-64) pg/mL Laboratory Results - last 24 hr 05/21/18 05/22/18 05/23/18 08:55 18:56 06:19 WBC 13.3 H RBC 3.39 L Hgb 9.9 L Hct 30.7 L MCV 90.5 MCH 29.3 MCHC 32.3 L RDW 18.9 H Plt Count 24 L* D MPV 10.7 Neut % (Auto) 90.9 H Lymph % (Auto) 2.1 L Hood % (Auto) 4.5 Eos % (Auto) 2.2 Baso % (Auto) 0.3 Neut # (Auto) 12.1 H Lymph # (Auto) 0.3 L Hood # (Auto) 0.6 Eos # (Auto) 0.3 Baso # (Auto) 0.0 Neutrophils % (Manual) 77 H Band Neutrophils % 7 H Lymphocytes % (Manual) 5 L Monocytes % (Manual) 10 Eosinophils % (Manual) Basophils % (Manual) Metamyelocytes % 1 H Myelocytes % Nucleated RBC % Platelet Estimate Markedly decreased L Large Platelets Giant Platelets Hypochromasia (manual) Poikilocytosis (manual Slight Anisocytosis (manual) Slight Microcytosis (manual) Slight Target Cells Ovalocytes Fatmata Cells Schistocytes Sodium 137 Potassium 4.4 Chloride 108 H Carbon Dioxide 17 L Anion Gap 16 BUN 106 H* Creatinine 2.6 H Est GFR ( Amer) 22 Est GFR (Non-Af Amer) 18 Random Glucose 97 Calcium 8.6 Phosphorus 4.4 Magnesium 2.3 Total Bilirubin 0.7 AST 8 L D ALT 33 Alkaline Phosphatase 85 Total Protein 5.1 L Albumin 2.6 L Globulin 2.5 Albumin/Globulin Ratio 1.0 PTH Intact Whole Molec 24 05/23/18 06:21 WBC 12.7 H RBC 3.34 L Hgb 9.9 L Hct 30.0 L MCV 89.9 MCH 29.6 MCHC 32.9 L RDW 18.9 H Plt Count 13 L* D MPV 11.2 Neut % (Auto) 89.1 H Lymph % (Auto) 2.8 L Hood % (Auto) 5.2 Eos % (Auto) 2.3 Baso % (Auto) 0.6 Neut # (Auto) 11.3 H Lymph # (Auto) 0.4 L Hood # (Auto) 0.7 Eos # (Auto) 0.3 Baso # (Auto) 0.1 Neutrophils % (Manual) 73 Band Neutrophils % 11 H* Lymphocytes % (Manual) 2 L Monocytes % (Manual) 5 Eosinophils % (Manual) 4 Basophils % (Manual) 1 Metamyelocytes % 3 H Myelocytes % 1 H Nucleated RBC % 22 H Platelet Estimate Markedly decreased L Large Platelets Present Giant Platelets Present Hypochromasia (manual) Slight Poikilocytosis (manual Moderate Anisocytosis (manual) Slight Microcytosis (manual) Target Cells Slight Ovalocytes Slight Linn Cells Slight Schistocytes Slight Sodium Potassium Chloride Carbon Dioxide Anion Gap BUN Creatinine Est GFR ( Amer) Est GFR (Non-Af Amer) Random Glucose Calcium Phosphorus Magnesium Total Bilirubin AST ALT Alkaline Phosphatase Total Protein Albumin Globulin Albumin/Globulin Ratio PTH Intact Whole Molec EKG/Cardiology Studies: Cardiology / EKG Studies 05/23/18 08:32 EKG [ELECTROCARDIOGRAM] Stat Comment: Mode Of Transportation: Reason For Exam: tachycardia Isolation: Contact Critical Care Progress Note - Nutrition Nutrition: Nutrition Category Date Time Status Mechanically altered [Dysphagia/Modified Consistency Diets 05/22/18 Lunch Active Diet] [DIET] Attending/Attestation - Attestation I have personally seen and examined this patient.: Yes I have fully participated in the care of the patient.: Yes I have reviewed all pertinent clinical information: Yes Notes (Text): 05/23/18 14:47 I have seen and examined the patient. Medical records, lab studies, and imaging were reviewed by me and a management plan was formulated on multidisciplinary rounds with resident Dr. De Leon. I agree with their documented assessment and plan. Patient appears more ill today. She is now in afib refractory to medical therapy, Will load with digoxin. I do not believe she will do well with electrical cardioversion. 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 May have to consider splenectomy. Critical Care Time 35 minutes. Multi-disciplinary rounds were performed with house staff, nursing, speech therapy, respiratory therapy, pharmacy and nutrition with integrated input from the primary team/attending and other consulting services. The documented time is cumulative and includes review of patient data/exams/labs/chart review and examination of the patient on rounds and throughout the day; time is exclusive of any procedures or teaching time. <Haley Meza L - Last Filed: 05/23/18 16:20> CCU Subjective - Physician Review Subjective (Free Text): Resident Critical Care Progress Note Patient examined at bedside. 1 unit of plateletpheresis given. Had episode of tachycardia into the 180s and so 2.5 mg Lopressor and 15 mg Cardizem was administered. Denies fever, chills, chest pain, shortness of breath. Critical Care Time Spent (in minutes): 35 CCU Objective - Vital Signs / Intake & Output Vital Signs (Last 4 hours): Vital Signs Temp Pulse Resp BP Pulse Ox 05/23/18 09:31 97.7 F 138 H 36 H 87/58 L 05/23/18 09:20 97.7 F 129 H 38 H 87/58 L 05/23/18 09:07 137 H 37 H 82/45 L 89 L 05/23/18 09:04 130 H 38 H 84/50 L 90 L 05/23/18 09:00 188 H 38 H 90 L 05/23/18 08:59 169 H 33 H 96/55 L 90 L 05/23/18 08:53 162 H 29 H 99/58 L 89 L 05/23/18 08:50 97.4 F L 140 H 28 H 84/50 L 05/23/18 08:39 200 H 38 H 125/71 91 L 05/23/18 08:35 98.8 F 194 H 26 H 120/64 05/23/18 08:22 107 H 22 120/64 91 L 05/23/18 08:20 97.5 F L 111 H 26 H 116/66 05/23/18 08:00 97.5 F L 112 H 32 H 116/66 91 L 05/23/18 07:00 108 H 33 H 116/66 91 L 05/23/18 06:00 111 H 35 H 118/68 92 L Intake and Output (Last 8hrs): Intake & Output 05/22/18 05/23/18 05/23/18 22:59 06:59 14:59 Intake Total 342 200 347 Output Total 450 530 70 Balance -108 -330 277 Weight 195 lb Intake: Intake, IV Amount 242 200 0 Right Distal Port PICC 42 200 0 Right Proximal Port PICC 200 Oral 100 100 Blood Product 197 Apheresis Plts Acda Lr 197 3rd Con Unit [id number] Other 50 Apheresis Plts Acda Lr 50 3rd Con Unit [id number] Output: Urine 450 530 70 Urethral (Addison) 450 530 70 Other: # Bowel Movements 0 - Physical Exam Head: Positive for: Atraumatic, Normocephalic Pupils: Positive for: PERRL Extroacular Muscles: Positive for: EOMI Conjunctiva: Positive for: Normal Ears: Positive for: Normal Mouth: Positive for: Moist Mucous Membranes Nose (External): Positive for: Atraumatic Neck: Positive for: Normal Range of Motion Respiratory/Chest: Positive for: Good Air Exchange, Rhonchi. Negative for: Respiratory Distress Cardiovascular: Positive for: Regular Rate and Rhythm, Normal S1, S2, Tachycardic Abdomen: Positive for: Tenderness (diffuse ), Distention. Negative for: Peritoneal Signs, Rebound Upper Extremity: Positive for: Normal Inspection. Negative for: Cyanosis, Edema Lower Extremity: Positive for: Normal Inspection, Edema. Negative for: CALF TENDERNESS Neurological: Positive for: GCS=15, CN II-XII Intact, Speech Normal Skin: Positive for: Dry, Normal Color. Negative for: Rashes Psychiatric: Positive for: Alert, Oriented x 3, Anxious - Medications Active Medications: Active Medications Generic Name Dose Route Start Last Admin Trade Name Freq PRN Reason Stop Dose Admin Acetaminophen 650 mg 05/15/18 08:56 05/19/18 19:00 Tylenol 325mg Tab PO 650 mg Q6 PRN Administration Fever >100.4 F Albuterol/Ipratropium 3 ml 05/15/18 12:00 05/23/18 08:31 Duoneb 3 Mg/0.5 Mg (3 Ml) Ud INH Not Given RQ6 NAN Enoxaparin Sodium 30 mg 05/15/18 10:00 05/21/18 10:40 Lovenox SC 30 mg DAILY NAN Administration Epoetin Koby 8,000 unit 05/22/18 10:00 05/22/18 13:46 Procrit SC 8,000 unit TTS NAN Administration Ergocalciferol 1 cap 05/21/18 11:00 05/21/18 11:56 Drisdol 50,000 Intl Units Cap PO 1 cap Q7D NAN Administration Ferrous Gluconate 324 mg 05/21/18 14:00 05/22/18 17:45 Fergon PO 324 mg TID NAN Administration Hydroxyurea 500 mg 05/15/18 10:00 05/15/18 10:00 Hydrea PO 500 mg BID NAN Administration Ceftazidime/Avibactam 0.94 gm/ 100 mls @ 50 mls/hr 05/21/18 06:00 05/23/18 05:35 Sodium Chloride IV 50 mls/hr Q12H NAN Administration Protocol Metronidazole 500 mg in 100 mls @ 100 mls/hr 05/21/18 17:00 05/23/18 09:13 Flagyl IVPB 100 mls/hr Q8H NAN Administration Protocol Pantoprazole Sodium 40 mg 05/21/18 12:00 05/22/18 10:55 Protonix Susp PO 40 mg DAILY NAN Administration Sodium Bicarbonate 1,300 mg 05/20/18 18:00 05/22/18 18:08 Sodium Bicarbonate Tab PO 1,300 mg BID NAN Administration Tramadol HCl 25 mg 05/22/18 07:16 05/22/18 07:47 Ultram NG 25 mg TID PRN Administration Pain, severe (8-10) Vitamin B Complex/Vit C/Folic Acid 1 tab 05/22/18 08:00 05/23/18 08:05 Nephro-Charlie PO 1 tab 0800 NAN Administration - Patient Studies Lab Studies: Microbiology Studies 05/17/18 11:50 Blood Culture - Final Blood NO GROWTH AFTER 5 DAYS Gram Stain - Final TEST NOT PERFORMED 05/17/18 11:50 Blood Culture - Final Blood NO GROWTH AFTER 5 DAYS Gram Stain - Final TEST NOT PERFORMED Lab Studies 05/23/18 05/23/18 05/22/18 Range/Units 06:21 06:19 18:56 WBC 12.7 H 13.3 H (4.8-10.8) K/uL RBC 3.34 L 3.39 L (3.80-5.20) Mil/uL Hgb 9.9 L 9.9 L (11.0-16.0) g/dL Hct 30.0 L 30.7 L (34.0-47.0) % MCV 89.9 90.5 (81.0-99.0) fL MCH 29.6 29.3 (27.0-31.0) pg MCHC 32.9 L 32.3 L (33.0-37.0) g/dL RDW 18.9 H 18.9 H (11.5-14.5) % Plt Count 13 L* D 24 L* D (130-400) K/uL MPV 11.2 10.7 (7.2-11.7) fL Neut % (Auto) 89.1 H 90.9 H (50.0-75.0) % Lymph % (Auto) 2.8 L 2.1 L (20.0-40.0) % Hood % (Auto) 5.2 4.5 (0.0-10.0) % Eos % (Auto) 2.3 2.2 (0.0-4.0) % Baso % (Auto) 0.6 0.3 (0.0-2.0) % Neut # (Auto) 11.3 H 12.1 H (1.8-7.0) K/uL Lymph # (Auto) 0.4 L 0.3 L (1.0-4.3) K/uL Hood # (Auto) 0.7 0.6 (0.0-0.8) K/uL Eos # (Auto) 0.3 0.3 (0.0-0.7) K/uL Baso # (Auto) 0.1 0.0 (0.0-0.2) K/uL Neutrophils % (Manual) 73 77 H (50-75) % Band Neutrophils % 11 H* 7 H (0-2) % Lymphocytes % (Manual) 2 L 5 L (20-40) % Monocytes % (Manual) 5 10 (0-10) % Eosinophils % (Manual) 4 (0-4) % Basophils % (Manual) 1 (0-2) % Metamyelocytes % 3 H 1 H (0-0) % Myelocytes % 1 H (0-0) % Nucleated RBC % 22 H (0-0) % Platelet Estimate Markedly decreased L Markedly decreased L (NORMAL) Large Platelets Present Giant Platelets Present Hypochromasia (manual) Slight Poikilocytosis (manual Moderate Slight Anisocytosis (manual) Slight Slight Microcytosis (manual) Slight Target Cells Slight Ovalocytes Slight Fatmata Cells Slight Schistocytes Slight Sodium 137 (132-148) mmol/L Potassium 4.4 (3.6-5.2) mmol/L Chloride 108 H (98-107) mmol/L Carbon Dioxide 17 L (22-30) mmol/L Anion Gap 16 (10-20) BUN 106 H* (7-17) mg/dL Creatinine 2.6 H (0.7-1.2) mg/dL Est GFR ( Amer) 22 Est GFR (Non-Af Amer) 18 Random Glucose 97 (65-105) mg/dL Calcium 8.6 (8.6-10.4) mg/dl Phosphorus 4.4 (2.5-4.5) mg/dL Magnesium 2.3 (1.6-2.3) mg/dL Total Bilirubin 0.7 (0.2-1.3) mg/dL AST 8 L D (14-36) U/L ALT 33 (9-52) U/L Alkaline Phosphatase 85 (38-126) U/L Total Protein 5.1 L (6.3-8.3) g/dL Albumin 2.6 L (3.5-5.0) g/dL Globulin 2.5 (2.2-3.9) gm/dL Albumin/Globulin Ratio 1.0 (1.0-2.1) PTH Intact Whole Molec (14-64) pg/mL U Random Total Protein (21-161) mg/g creat Urine Chloride (32-290) mmol/L 05/21/18 05/20/18 05/20/18 Range/Units 08:55 08:14 08:14 WBC (4.8-10.8) K/uL RBC (3.80-5.20) Mil/uL Hgb (11.0-16.0) g/dL Hct (34.0-47.0) % MCV (81.0-99.0) fL MCH (27.0-31.0) pg MCHC (33.0-37.0) g/dL RDW (11.5-14.5) % Plt Count (130-400) K/uL MPV (7.2-11.7) fL Neut % (Auto) (50.0-75.0) % Lymph % (Auto) (20.0-40.0) % Hood % (Auto) (0.0-10.0) % Eos % (Auto) (0.0-4.0) % Baso % (Auto) (0.0-2.0) % Neut # (Auto) (1.8-7.0) K/uL Lymph # (Auto) (1.0-4.3) K/uL Hood # (Auto) (0.0-0.8) K/uL Eos # (Auto) (0.0-0.7) K/uL Baso # (Auto) (0.0-0.2) K/uL Neutrophils % (Manual) (50-75) % Band Neutrophils % (0-2) % Lymphocytes % (Manual) (20-40) % Monocytes % (Manual) (0-10) % Eosinophils % (Manual) (0-4) % Basophils % (Manual) (0-2) % Metamyelocytes % (0-0) % Myelocytes % (0-0) % Nucleated RBC % (0-0) % Platelet Estimate (NORMAL) Large Platelets Giant Platelets Hypochromasia (manual) Poikilocytosis (manual Anisocytosis (manual) Microcytosis (manual) Target Cells Ovalocytes Fatmata Cells Schistocytes Sodium (132-148) mmol/L Potassium (3.6-5.2) mmol/L Chloride (98-107) mmol/L Carbon Dioxide (22-30) mmol/L Anion Gap (10-20) BUN (7-17) mg/dL Creatinine (0.7-1.2) mg/dL Est GFR ( Amer) Est GFR (Non-Af Amer) Random Glucose (65-105) mg/dL Calcium (8.6-10.4) mg/dl Phosphorus (2.5-4.5) mg/dL Magnesium (1.6-2.3) mg/dL Total Bilirubin (0.2-1.3) mg/dL AST (14-36) U/L ALT (9-52) U/L Alkaline Phosphatase (38-126) U/L Total Protein (6.3-8.3) g/dL Albumin (3.5-5.0) g/dL Globulin (2.2-3.9) gm/dL Albumin/Globulin Ratio (1.0-2.1) PTH Intact Whole Molec 24 (14-64) pg/mL U Random Total Protein 1153 H (21-161) mg/g creat Urine Chloride 29 L (32-290) mmol/L Laboratory Results - last 24 hr 05/20/18 05/20/18 05/21/18 08:14 08:14 08:55 WBC RBC Hgb Hct MCV MCH MCHC RDW Plt Count MPV Neut % (Auto) Lymph % (Auto) Hood % (Auto) Eos % (Auto) Baso % (Auto) Neut # (Auto) Lymph # (Auto) Hood # (Auto) Eos # (Auto) Baso # (Auto) Neutrophils % (Manual) Band Neutrophils % Lymphocytes % (Manual) Monocytes % (Manual) Eosinophils % (Manual) Basophils % (Manual) Metamyelocytes % Myelocytes % Nucleated RBC % Platelet Estimate Large Platelets Giant Platelets Hypochromasia (manual) Poikilocytosis (manual Anisocytosis (manual) Microcytosis (manual) Target Cells Ovalocytes Linn Cells Schistocytes Sodium Potassium Chloride Carbon Dioxide Anion Gap BUN Creatinine Est GFR ( Amer) Est GFR (Non-Af Amer) Random Glucose Calcium Phosphorus Magnesium Total Bilirubin AST ALT Alkaline Phosphatase Total Protein Albumin Globulin Albumin/Globulin Ratio PTH Intact Whole Molec 24 U Random Total Protein 1153 H Urine Chloride 29 L 05/22/18 05/23/18 05/23/18 18:56 06:19 06:21 WBC 13.3 H 12.7 H RBC 3.39 L 3.34 L Hgb 9.9 L 9.9 L Hct 30.7 L 30.0 L MCV 90.5 89.9 MCH 29.3 29.6 MCHC 32.3 L 32.9 L RDW 18.9 H 18.9 H Plt Count 24 L* D 13 L* D MPV 10.7 11.2 Neut % (Auto) 90.9 H 89.1 H Lymph % (Auto) 2.1 L 2.8 L Hood % (Auto) 4.5 5.2 Eos % (Auto) 2.2 2.3 Baso % (Auto) 0.3 0.6 Neut # (Auto) 12.1 H 11.3 H Lymph # (Auto) 0.3 L 0.4 L Hood # (Auto) 0.6 0.7 Eos # (Auto) 0.3 0.3 Baso # (Auto) 0.0 0.1 Neutrophils % (Manual) 77 H 73 Band Neutrophils % 7 H 11 H* Lymphocytes % (Manual) 5 L 2 L Monocytes % (Manual) 10 5 Eosinophils % (Manual) 4 Basophils % (Manual) 1 Metamyelocytes % 1 H 3 H Myelocytes % 1 H Nucleated RBC % 22 H Platelet Estimate Markedly decreased L Markedly decreased L Large Platelets Present Giant Platelets Present Hypochromasia (manual) Slight Poikilocytosis (manual Slight Moderate Anisocytosis (manual) Slight Slight Microcytosis (manual) Slight Target Cells Slight Ovalocytes Slight Fatmata Cells Slight Schistocytes Slight Sodium 137 Potassium 4.4 Chloride 108 H Carbon Dioxide 17 L Anion Gap 16 BUN 106 H* Creatinine 2.6 H Est GFR ( Amer) 22 Est GFR (Non-Af Amer) 18 Random Glucose 97 Calcium 8.6 Phosphorus 4.4 Magnesium 2.3 Total Bilirubin 0.7 AST 8 L D ALT 33 Alkaline Phosphatase 85 Total Protein 5.1 L Albumin 2.6 L Globulin 2.5 Albumin/Globulin Ratio 1.0 PTH Intact Whole Molec U Random Total Protein Urine Chloride EKG/Cardiology Studies: Cardiology / EKG Studies 05/23/18 08:32 EKG [ELECTROCARDIOGRAM] Stat Comment: Mode Of Transportation: Reason For Exam: tachycardia Isolation: Contact Review of Systems - Review of Systems All systems: reviewed and no additional remarkable complaints except (as stated in HPI) Critical Care Progress Note - Nutrition Nutrition: Nutrition Category Date Time Status Mechanically altered [Dysphagia/Modified Consistency Diets 05/22/18 Lunch Active Diet] [DIET] Assessment/Plan - Assessment and Plan (Free Text) Assessment: 67 year old female with a PMHx of myelofibrosis, HTN, renal insufficiency admitted with fever and UTI. 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 On previous admission patient had splenic embolization. Plan: Neuro: - AAO x3 Pulm: - nasal cannula as tolerated - maintain SPO2 > 92% - Duonebs 3 ml INH RQ6 CV: - Eliquis held 2/2 acute hemorrhagic process emanating from the spleen - ECHO 05/21 shows LVEF 62%, small pericardial effusion inferior to LV, mild AR, paradoxical septal motion - Dopplers showed acute thrombosis of right gastrocnemius vein with severe reduction of venous return. - Abd/pelvis CT shows small left pleural effusion, minimal pericardial effusion - Persistent tachycardia GI: - s/p IR splenic artery embolization - 05/[address] shows large infarcted spleen predominantly liquified with gas and fluid. Suspicion for hemorrhage into infarcted spleen. - Pepcid 20mg PO daily - advanced to soft diet - Surgery consulted for possible splenectomy. Appreciate recs. Renal: - SOFIA - UA shows 2+ protein, 3+ blood - monitor I and O - Replete electrolytes as needed - Urology Dr Flor Irvin consulted. Appreciate recs. - Nephrology Dr. Wylie consulted. Recs appreciated. ID: - [id number]/17 BCx show NG after 4 days - Tygacil 100 mg given - ID Dr. Jackson consulted. Recs appreciated. - Avycaz 0.94 g IV q12h (started 05/15) - metronidazole 500 mg IV Q8H (started 05/21) Heme/Onc - Hx of myelofibrosis with chronic leukocytosis - Dr. Mcbride consulted. Recs appreciated. - Holding Hydrea, Jakafi - 1 unit platelets given today - Ferrous gluconate 324 mg PO TID Endo: - Maintain euglycemia PPX: Pepcid 20 mg PO daily, Lovenox 30 mg SC daily Case and plan was reviewed and discussed with Dr. Fouzia Meza PGY-1 - Date & Time Date: 05/23/18 Time: 09:41
[2018-05-23] MEDS: Pantoprazole 40 mg EC Tab PO SCH (09:49)
[2018-05-23] MEDS ORDERED: Metoprolol 1 mg/ml Inj IVP SCH ×3 (11:15→18:00)
--- NOTE | 2018-05-23 13:18 | RAD ---
Date of service: 05/23/2018 HISTORY: SOB COMPARISON: Portable chest 05/21/2018. FINDINGS: LUNGS: Medial basilar airspace disease not excluded bilaterally which may reflect atelectasis. No additional potential alveolitis bilaterally. PLEURA: No significant pleural effusion identified, no pneumothorax apparent. CARDIOVASCULAR: Cardiomegaly unchanged. Nasogastric tube apparently removed. Right PICC unchanged. OSSEOUS STRUCTURES: No significant abnormalities. VISUALIZED UPPER ABDOMEN: Normal. OTHER FINDINGS: None. IMPRESSION: Stable cardiomegaly. Likely medial bibasilar atelectasis though underlying airspace disease not excluded. Apparent prior removal of nasogastric tube with right PICC unchanged.
--- NOTE | 2018-05-23 13:21 | CP.PCM.PN ---
Subjective - Date & Time of Evaluation Date of Evaluation: 05/23/18 Time of Evaluation: 13:00 - Subjective Subjective: Feels weak for platelet transfusion Objective - Vital Signs/Intake and Output Vital Signs (last 24 hours): Temp Pulse Resp BP Pulse Ox 97.7 F 129 H 35 H 97/59 L 93 L 05/23/18 09:31 05/23/18 11:52 05/23/18 11:52 05/23/18 11:52 05/23/18 11:52 Intake and Output: 05/23/18 05/23/18 06:59 18:59 Intake Total 200 447 Output Total 980 150 Balance -780 297 - Medications Medications: Current Medications Acetaminophen (Tylenol 325mg Tab) 650 mg PO Q6 PRN PRN Reason: Fever >100.4 F Last Admin: 05/19/18 19:00 Dose: 650 mg Albuterol/Ipratropium (Duoneb 3 Mg/0.5 Mg (3 Ml) Ud) 3 ml INH RQ6 [facility] Last Admin: 05/23/18 08:31 Dose: Not Given Enoxaparin Sodium (Lovenox) 30 mg SC DAILY [facility] Last Admin: 05/21/18 10:40 Dose: 30 mg Epoetin Koby (Procrit) 8,000 unit SC TTS [facility] Last Admin: 05/22/18 13:46 Dose: 8,000 unit Ergocalciferol (Drisdol 50,000 Intl Units Cap) 1 cap PO Q7D [facility] Last Admin: 05/21/18 11:56 Dose: 1 cap Ferrous Gluconate (Fergon) 324 mg PO TID [facility] Last Admin: 05/23/18 09:47 Dose: 324 mg Hydroxyurea (Hydrea) 500 mg PO BID [facility] Last Admin: 05/15/18 10:00 Dose: 500 mg Ceftazidime/Avibactam 0.94 gm/ (Sodium Chloride) 100 mls @ 50 mls/hr IV Q12H [facility]; Protocol Last Admin: 05/23/18 05:35 Dose: 50 mls/hr Metronidazole (Flagyl) 500 mg in 100 mls @ 100 mls/hr IVPB Q8H [facility]; Protocol Last Admin: 05/23/18 09:13 Dose: 100 mls/hr Metoprolol Tartrate (Lopressor) 5 mg IVP Q6H [facility] Pantoprazole Sodium (Protonix Ec Tab) 40 mg PO DAILY [facility] Last Admin: 05/23/18 09:49 Dose: 40 mg Sodium Bicarbonate (Sodium Bicarbonate Tab) 1,300 mg PO BID [facility] Last Admin: 05/23/18 09:47 Dose: 1,300 mg Tramadol HCl (Ultram) 25 mg NG TID PRN PRN Reason: Pain, severe (8-10) Last Admin: 05/22/18 07:47 Dose: 25 mg Vitamin B Complex/Vit C/Folic Acid (Nephro-Charlie) 1 tab PO 0800 [facility] Last Admin: 05/23/18 08:05 Dose: 1 tab - Labs Labs: 05/23/18 06:21 05/23/18 06:19 PT 19.5 SECONDS (9.7-12.2) H 05/21/18 09:52 INR 1.8 05/21/18 09:52 APTT 34 SECONDS (21-34) 05/21/18 09:52 - Head Exam Head Exam: ATRAUMATIC - Eye Exam Eye Exam: Normal appearance - ENT Exam ENT Exam: Mucous Membranes Dry - Respiratory Exam Respiratory Exam: NORMAL BREATHING PATTERN - Cardiovascular Exam Cardiovascular Exam: +S1, +S2 - GI/Abdominal Exam GI & Abdominal Exam: Normal Bowel Sounds Assessment and Plan (1) Thrombocytopenia Assessment & Plan: secondary to myelofibrosis splenic sequestration from splenomegaly transfusion support for plt > 20,000 Status: Acute (2) Leucocytosis Assessment & Plan: on antibiotics element from myelofibrosis Status: Acute (3) Anemia Assessment & Plan: chronic disease, anemia of CKD - on SOFIA splenic sequestration possible hemorrhage into infarcted spleen Status: Acute (4) DVT (deep venous thrombosis) Assessment & Plan: anticoagulation held for possible bleeding Status: Acute (5) Myelofibrosis Assessment & Plan: restart Jakafi and Hydrea once infection clears Status: Acute
--- NOTE | 2018-05-23 14:45 | CP.PCM.PN ---
Subjective - Date & Time of Evaluation Date of Evaluation: 05/23/18 Time of Evaluation: 14:42 - Subjective Subjective: Nephrology Consultation Note: Assessment: critical Acute Kidney Injury (N17.9) likely due to ATN/sepsis with UTI, low BP, pre-renal state Metabolic acidosis, Hyponatremia Hypertensive Chronic Kidney Disease (I12.9) Chronic Kidney Disease (N18.3) Stage 3 with ? mg proteinuria myelofibrosis with hepatosplenomegaly and extensive varices, anemia/thrombocytopenia atrial fibrillation, right lower extremity DVT on anticoagulant developed Splenic hemorrhage s/p splenic artery embolization now with splenic infarction right hydronephrosis/pyelonephritis and Ureteral stricture s/p stent A fib with RVR Plan No acute need for renal replacement therapy at this time. Maintain hemodynamics stable. Avoid hypotension. Patient not on ACEI/ARB due to recent SOFIA Monitor Input/Output, daily weights and renal function with basic metabolic panel continue with sodium bicarb 1300 mg bid IV albumin 100 gram given bladder pressure: 16 cm H2O anemia management as per heme: started iron and MVI. PRBC 2 unit 05/21/18. added epogen as well as d/w heme started weekly ergocalciferol consider gentle IVF such as D5NS @ 50-60 ml/hr surgery, ID and heme following work up ordered as: urine analysis, spot protein/creatinine, albumin/creatinine ratio, urine Na/K/Cl, Osmol, serum Osmol C3, C4, ANCA (MPO and OK-3), HIV serology, IgG4 25-OH vitamin D, iPTH, phosphorus level. Dose meds/antibiotics for reduced GFR. Avoid fleets enema/magnesium based lax atives. Avoid nephrotoxins/NSAIDs/ iodinated contrast (unless needed emergently) Glycemic control Further work up/management as per primary team Thanks for allowing me to participate in care of your patient. Will follow patient with you. Please call if any Qs. d/w team and family bedside Dr Espinoza Wylie Office: [phone] Chief Complaint; pain abdomen Reason for consult: Acute Kidney Injury HPI: Pt is a 67 F with hx of HTN,myelofibrosis admitted recently in april with right flank pain, right hydronephrosis/pyelonephritis and Ureteral stricture s/p stent, hospital course was complicated by atrial fibrillation, right lower extremity DVT on anticoagulant developed Splenic hemorrhage s/p splenic artery embolization, hence systemic a/c was stopped. pt also with hepatosplenomegaly and extensive varices, anemia/thrombocytopenia admitted with sepsis with kelbsiella due to UTI pt also with CKD stage 3 with baseline cr 1.8-2.0 since hospitalization with AKIs Denies OTC/herbal meds or NSAIDs No recent iodinated contrast exposure. Noted obvious episodes of low BP. son bedside and helped in interpretations pt not good historian. ROS: limited ROS. pt with poor oral intake. s/p platelet transfusion family bedside Physical Examination: General Appearance: comfortable, in no acute respiratory distress, co-operative . ill appearing Vitals reviewed and noted as below Head; Atraumatic, normocephalic ENT: no ulcers no thrush. Tongue is midline. Oropharynx: no rash or ulcers. EYES: Pupils are equal, round and reactive to light accommodation. Eye muscles and extraocular movement intact. Sclera is anicteric. Neck; supple no lymphadenopathy, no thyromegaly or bruit Lungs: Increased respiratory rate/effort. Breath sounds bilateral equal and few rales + Heart: Increased rate. s1s2 normal. No rub or gallop. Extremities: no edema. No varicose veins Neurological: Patient is sleeping Skin: Warm and dry. Normal turgor. No rash. Palpitation: Normal elasticity for age Abdomen: Abdomen is soft. Bowel sounds +. There is improved abdominal tenderness without guarding no rigidity no organomegaly Psych: limited insight and normal affect/mood MSK: no joint tenderness or swelling. Digits and nails normal, no deformity : kidney or bladder not palpable Labs/imaging reviewed. Past medical history, past surgical history, family history, social history, allergy reviewed and noted as below Family hx: no hx of CKD. Rest non-contributory echo moderate pHTN, normal LVEF UA 2+ protein 3+ blood TRACEY and Hep B/C neg Fena 0.5% Objective - Vital Signs/Intake and Output Vital Signs (last 24 hours): Temp Pulse Resp BP Pulse Ox 97.3 F L 128 H 40 H 93/57 L 87 L 05/23/18 12:00 05/23/18 13:25 05/23/18 13:00 05/23/18 14:42 05/23/18 13:00 Intake and Output: 05/23/18 05/23/18 06:59 18:59 Intake Total 200 844 Output Total 368 290 Balance -780 554 - Medications Medications: Current Medications Acetaminophen (Tylenol 325mg Tab) 650 mg PO Q6 PRN PRN Reason: Fever >100.4 F Last Admin: 05/19/18 19:00 Dose: 650 mg Albuterol/Ipratropium (Duoneb 3 Mg/0.5 Mg (3 Ml) Ud) 3 ml INH RQ6 [facility] Last Admin: 05/23/18 13:27 Dose: Not Given Enoxaparin Sodium (Lovenox) 30 mg SC DAILY [facility] Last Admin: 05/21/18 10:40 Dose: 30 mg Epoetin Koby (Procrit) 8,000 unit SC TTS [facility] Last Admin: 05/22/18 13:46 Dose: 8,000 unit Ergocalciferol (Drisdol 50,000 Intl Units Cap) 1 cap PO Q7D [facility] Last Admin: 05/21/18 11:56 Dose: 1 cap Ferrous Gluconate (Fergon) 324 mg PO TID [facility] Last Admin: 05/23/18 14:38 Dose: 324 mg Furosemide (Lasix) 40 mg IVP DAILY [facility] Last Admin: 05/23/18 14:42 Dose: 40 mg Hydroxyurea (Hydrea) 500 mg PO BID [facility] Last Admin: 05/15/18 10:00 Dose: 500 mg Ceftazidime/Avibactam 0.94 gm/ (Sodium Chloride) 100 mls @ 50 mls/hr IV Q12H [facility]; Protocol Last Admin: 05/23/18 05:35 Dose: 50 mls/hr Metronidazole (Flagyl) 500 mg in 100 mls @ 100 mls/hr IVPB Q8H [facility]; Protocol Last Admin: 05/23/18 09:13 Dose: 100 mls/hr Metoprolol Tartrate (Lopressor) 5 mg IVP Q6H [facility] Last Admin: 05/23/18 13:56 Dose: Not Given Metoprolol Tartrate (Lopressor) 5 mg IVP Q6 [facility] Pantoprazole Sodium (Protonix Ec Tab) 40 mg PO DAILY [facility] Last Admin: 05/23/18 09:49 Dose: 40 mg Sodium Bicarbonate (Sodium Bicarbonate Tab) 1,300 mg PO BID [facility] Last Admin: 05/23/18 09:47 Dose: 1,300 mg Tramadol HCl (Ultram) 25 mg NG TID PRN PRN Reason: Pain, severe (8-10) Last Admin: 05/22/18 07:47 Dose: 25 mg Vitamin B Complex/Vit C/Folic Acid (Nephro-Charlie) 1 tab PO 0800 [facility] Last Admin: 05/23/18 08:05 Dose: 1 tab - Labs Labs: 05/23/18 06:21 05/23/18 06:19 PT 19.5 SECONDS (9.7-12.2) H 05/21/18 09:52 INR 1.8 05/21/18 09:52 APTT 34 SECONDS (21-34) 05/21/18 09:52
--- NOTE | 2018-05-23 15:00 | CP.PCM.PN ---
Subjective - Date & Time of Evaluation Date of Evaluation: 05/23/18 Time of Evaluation: 12:30 - Subjective Subjective: clinically same Objective - Vital Signs/Intake and Output Vital Signs (last 24 hours): Temp Pulse Resp BP Pulse Ox 97.3 F L 128 H 40 H 93/57 L 87 L 05/23/18 12:00 05/23/18 13:25 05/23/18 13:00 05/23/18 14:42 05/23/18 13:00 Intake and Output: 05/23/18 05/23/18 06:59 18:59 Intake Total 200 844 Output Total 980 290 Balance -780 554 - Medications Medications: Current Medications Acetaminophen (Tylenol 325mg Tab) 650 mg PO Q6 PRN PRN Reason: Fever >100.4 F Last Admin: 05/19/18 19:00 Dose: 650 mg Albuterol/Ipratropium (Duoneb 3 Mg/0.5 Mg (3 Ml) Ud) 3 ml INH RQ6 [facility] Last Admin: 05/23/18 13:27 Dose: Not Given Enoxaparin Sodium (Lovenox) 30 mg SC DAILY [facility] Last Admin: 05/21/18 10:40 Dose: 30 mg Epoetin Koby (Procrit) 8,000 unit SC TTS [facility] [place] Last Admin: 05/22/18 13:46 Dose: 8,000 unit Ergocalciferol (Drisdol 50,000 Intl Units Cap) 1 cap PO Q7D [facility] Last Admin: 05/21/18 11:56 Dose: 1 cap Ferrous Gluconate (Fergon) 324 mg PO TID [facility] [place] Last Admin: 05/23/18 14:38 Dose: 324 mg Furosemide (Lasix) 40 mg IVP DAILY [facility] [place] Last Admin: 05/23/18 14:42 Dose: 40 mg Hydroxyurea (Hydrea) 500 mg PO BID [facility] [place] Last Admin: 05/15/18 10:00 Dose: 500 mg Ceftazidime/Avibactam 0.94 gm/ (Sodium Chloride) 100 mls @ 50 mls/hr IV Q12H [facility]; Protocol Last Admin: 05/23/18 05:35 Dose: 50 mls/hr Metronidazole (Flagyl) 500 mg in 100 mls @ 100 mls/hr IVPB Q8H [facility] [place]; Protocol Last Admin: 10/05/18 09:13 Dose: 100 mls/hr Metoprolol Tartrate (Lopressor) 5 mg IVP Q6H [facility] [place] Last Admin: 05/23/18 13:56 Dose: Not Given Metoprolol Tartrate (Lopressor) 5 mg IVP Q6 [facility] [place] Pantoprazole Sodium (Protonix Ec Tab) 40 mg PO DAILY [facility] Last Admin: 05/23/18 09:49 Dose: 40 mg Sodium Bicarbonate (Sodium Bicarbonate Tab) 1,300 mg PO BID [facility] Last Admin: 05/23/18 09:47 Dose: 1,300 mg Tramadol HCl (Ultram) 25 mg NG TID PRN PRN Reason: Pain, severe (8-10) Last Admin: 05/22/18 07:47 Dose: 25 mg Vitamin B Complex/Vit C/Folic Acid (Nephro-Charlie) 1 tab PO 0800 [facility] Last Admin: 05/23/18 08:05 Dose: 1 tab - Labs Labs: 05/23/18 06:21 05/23/18 06:19 PT 19.5 SECONDS (9.7-12.2) H 05/21/18 09:52 INR 1.8 05/21/18 09:52 APTT 34 SECONDS (21-34) 05/21/18 09:52 - Constitutional Appears: Well - Head Exam Head Exam: ATRAUMATIC, NORMAL INSPECTION, NORMOCEPHALIC - Eye Exam Eye Exam: EOMI, Normal appearance, PERRL Pupil Exam: NORMAL ACCOMODATION, PERRL - ENT Exam ENT Exam: Mucous Membranes Moist, Normal Exam - Neck Exam Neck Exam: Full ROM, Normal Inspection. absent: Lymphadenopathy - Respiratory Exam Respiratory Exam: Decreased Breath Sounds - Cardiovascular Exam Cardiovascular Exam: REGULAR RHYTHM, +S1, +S2 - GI/Abdominal Exam GI & Abdominal Exam: Soft, Diminished Bowel Sounds - Rectal Exam Rectal Exam: Deferred Assessment and Plan (1) Abdominal pain Status: Acute (2) Anemia Status: Acute (3) Atrial fibrillation, new onset Status: Acute (4) CHF (congestive heart failure) Status: Acute (5) DVT (deep venous thrombosis) Status: Acute (6) Elevated brain natriuretic peptide (BNP) level Status: Acute (7) Hepatosplenomegaly Status: Acute (8) Hydronephrosis, right Status: Acute (9) Leucocytosis Status: Acute (10) Myelofibrosis Status: Acute (11) Portal vein thrombosis Status: Acute (12) Prophylactic measure Status: Acute (13) Pyelonephritis Status: Acute (14) Pyelonephritis due to Escherichia coli Status: Acute (15) Renal insufficiency Status: Acute (16) Spleen hematoma Status: Acute (17) Splenic hemorrhage Status: Acute (18) Thrombocytopenia Status: Acute (19) UTI (urinary tract infection) Status: Acute (20) Varices of other sites Status: Acute - Assessment and Plan (Free Text) Plan: Patient seen and examined at bedside Overnight events noted Labs reviewed CT abdomen noted Guarded prognosis Prognosis explained to son Transfusion as needed DVT/GI prophylaxis
[2018-05-23 15:19] LABS: BASO # 0.1 K/uL (0.0-0.2); BASO % 0.7 % (0.0-2.0); EOS # 0.2 K/uL (0.0-0.7); EOS % 1.4 % (0.0-4.0); HEMOGLOBIN 10.1 g/dL (11.0-16.0); LYMPH # 0.5 K/uL (1.0-4.3); LYMPH % 3.7 % (20.0-40.0); MEAN CELL VOLUME 89.6 fL (81.0-99.0); MEAN CORPUSCULAR HEMOGLOBIN 28.9 pg (27.0-31.0); MEAN CORPUSCULAR HGB CONC 32.3 g/dL (33.0-37.0); MONO # 0.8 K/uL (0.0-0.8); MONO % 5.7 % (0.0-10.0); NEUT # 12.9 K/uL (1.8-7.0); NEUT % 88.5 % (50.0-75.0); NRBC % 8.3 % (0.0-2.0); RBC 3.51 Mil/uL (3.80-5.20); RED CELL DISTRIBUTION WIDTH 19.1 % (11.5-14.5); WHITE BLOOD COUNT 14.5 K/uL (4.8-10.8)
[2018-05-23 15:22] LABS: PLATELET COUNT 37 K/uL (130-400)
[2018-05-23 15:38] LABS: BANDS 8 % (0-2); LYMPHOCYTE 6 % (20-40); METAMYELOCYTE 2 % (0-0); MONOCYTE 12 % (0-10); MYELOCYTE 1 % (0-0); NEUTROPHIL 71 % (50-75); NUCLEATED RED BLOOD CELL 20 % (0-0); TOTAL CELLS COUNTED 100
[2018-05-23 15:39] LABS: ANISOCYTOSIS SLIGHT; HYPOCHROMIC SLIGHT; PLATELET ESTIMATE DECREASED (NORMAL); POLYCHROMIC SLIGHT
[2018-05-23] MEDS ORDERED: Digoxin 500 mcg/2ml (0.5 mg/2ml) Inj IVP ONE (15:39)
--- NOTE | 2018-05-23 19:02 | CP.PCM.PN ---
Subjective - Date & Time of Evaluation Date of Evaluation: 05/23/18 Time of Evaluation: 18:58 - Subjective Subjective: INFECTIOUS DISEASE ICU #2 PROGRESS NOTES 05/22-12/2017 COMPUTER DOWN LAST NIGHT JANY PATTERSON MD, FACP CHART REVIEWED PT EXAMINED CASE DISCUSSED CLINICALLY APPEARS SOB AND TACHYCARDIA, LESS NOW THAN BEFORE-EARLIER. LUNGS CONGESTED COR TACHYCARDIA ABD LUQ PAIN ON PALPATION EXT 3-4+EDEMA ANTICANCER DRUGS ON HOLD ON AVYCAZ AND FLAGYL FINDINGS ON CT OF ABD NOTED PROGNOSIS IS GUARDED JANY PATTERSON MD, FACP - Head Exam Head Exam: ATRAUMATIC - Eye Exam Eye Exam: Normal appearance - ENT Exam ENT Exam: Mucous Membranes Dry - Respiratory Exam Respiratory Exam: NORMAL BREATHING PATTERN - Cardiovascular Exam Cardiovascular Exam: +S1, +S2 - GI/Abdominal Exam GI & Abdominal Exam: Normal Bowel Sounds Assessment and Plan (1) Thrombocytopenia Assessment & Plan: secondary to myelofibrosis splenic sequestration from splenomegaly transfusion support for plt > 20,000 Status: Acute (2) Leucocytosis Assessment & Plan: on antibiotics element from myelofibrosis Status: Acute (3) Anemia Assessment & Plan: chronic disease, anemia of CKD - on SOFIA splenic sequestration possible hemorrhage into infarcted spleen Status: Acute (4) DVT (deep venous thrombosis) Assessment & Plan: anticoagulation held for possible bleeding Status: Acute (5) Myelofibrosis Assessment & Plan: restart Jakafi and Hydrea once infection clears Status: Acute Objective - Vital Signs/Intake and Output Vital Signs (last 24 hours): Temp Pulse Resp BP Pulse Ox 98.6 F 116 H 31 H 109/62 96 05/23/18 16:00 05/23/18 18:00 05/23/18 18:00 05/23/18 17:52 05/23/18 18:00 Intake and Output: 05/23/18 05/23/18 06:59 18:59 Intake Total 200 1194 Output Total 980 625 Balance -780 569 - Medications Medications: Current Medications Acetaminophen (Tylenol 325mg Tab) 650 mg PO Q6 PRN PRN Reason: Fever >100.4 F Last Admin: 05/19/18 19:00 Dose: 650 mg Albuterol/Ipratropium (Duoneb 3 Mg/0.5 Mg (3 Ml) Ud) 3 ml INH RQ6 [facility] Last Admin: 05/23/18 13:27 Dose: Not Given Digoxin (Lanoxin) 0.25 mg IVP Q6H [facility] Stop: 05/24/18 04:01 Enoxaparin Sodium (Lovenox) 30 mg SC DAILY [facility] Last Admin: 05/21/18 10:40 Dose: 30 mg Epoetin Koby (Procrit) 8,000 unit SC TTS [facility] Last Admin: 05/22/18 13:46 Dose: 8,000 unit Ergocalciferol (Drisdol 50,000 Intl Units Cap) 1 cap PO Q7D [facility] Last Admin: 05/21/18 11:56 Dose: 1 cap Ferrous Gluconate (Fergon) 324 mg PO TID [facility] Last Admin: 05/23/18 17:41 Dose: 324 mg Furosemide (Lasix) 40 mg IVP DAILY [facility] Last Admin: 05/23/18 14:42 Dose: 40 mg Hydroxyurea (Hydrea) 500 mg PO BID [facility] Last Admin: 05/15/18 10:00 Dose: 500 mg Ceftazidime/Avibactam 0.94 gm/ (Sodium Chloride) 100 mls @ 50 mls/hr IV Q12H [facility]; Protocol Last Admin: 05/23/18 17:42 Dose: 50 mls/hr Metronidazole (Flagyl) 500 mg in 100 mls @ 100 mls/hr IVPB Q8H [facility]; Protocol Last Admin: 05/23/18 17:41 Dose: 100 mls/hr Pantoprazole Sodium (Protonix Ec Tab) 40 mg PO DAILY [facility] Last Admin: 05/23/18 09:49 Dose: 40 mg Sodium Bicarbonate (Sodium Bicarbonate Tab) 1,300 mg PO BID [facility] Last Admin: 05/23/18 17:42 Dose: 1,300 mg Tramadol HCl (Ultram) 25 mg NG TID PRN PRN Reason: Pain, severe (8-10) Last Admin: 05/22/18 07:47 Dose: 25 mg Vitamin B Complex/Vit C/Folic Acid (Nephro-Charlie) 1 tab PO 0800 [facility] Last Admin: 05/23/18 08:05 Dose: 1 tab - Labs Labs: 05/23/18 15:08 05/23/18 06:19 PT 19.5 SECONDS (9.7-12.2) H 05/21/18 09:52 INR 1.8 05/21/18 09:52 APTT 34 SECONDS (21-34) 05/21/18 09:52
[2018-05-23] MEDS ORDERED: Digoxin 500 mcg/2ml (0.5 mg/2ml) Inj IVP SCH (22:00)
[2018-05-24] MEDS ORDERED: DiphenhydrAMINE 50 mg/ml Inj IVP STA (00:41)
[2018-05-24 01:04] LABS: VENOUS BLOOD GAS BASE EXCESS -7.7 mmol/L (0.0-2.0); VENOUS BLOOD GAS PCO2 38 mmHg (40-60); VENOUS BLOOD GAS PO2 41 mm/Hg (30-55); VENOUS BLOOD PH 7.29 (7.32-7.43)
[2018-05-24] MEDS: metroNIDAZOLE IV 500 mg/100 ml 500 MG/100 ML BAG IVPB SCH ×4 (01:22→23:45)
[2018-05-24] MEDS: Albuterol-Ipratrop 3 mg / 0.5 (3 ml) UD INH SCH ×3 (01:24→20:04)
[2018-05-24 04:16] LABS: BASO # 0.4 K/uL (0.0-0.2); EOS # 0.1 K/uL (0.0-0.7); EOS % 0.8 % (0.0-4.0); HEMOGLOBIN 10.8 g/dL (11.0-16.0); LYMPH # 0.5 K/uL (1.0-4.3); LYMPH % 2.7 % (20.0-40.0); MEAN CELL VOLUME 90.8 fL (81.0-99.0); MEAN CORPUSCULAR HEMOGLOBIN 28.8 pg (27.0-31.0); MEAN CORPUSCULAR HGB CONC 31.7 g/dL (33.0-37.0); MEAN PLATELET VOLUME 9.8 fL (7.2-11.7); MONO # 0.7 K/uL (0.0-0.8); MONO % 3.9 % (0.0-10.0); NEUT # 17.2 K/uL (1.8-7.0); NEUT % 90.6 % (50.0-75.0); RBC 3.74 Mil/uL (3.80-5.20); RED CELL DISTRIBUTION WIDTH 19.2 % (11.5-14.5)
[2018-05-24 04:17] LABS: PLATELET COUNT 16 K/uL (130-400)
[2018-05-24 04:35] LABS: ALBUMIN 2.7 g/dL (3.5-5.0); CALCIUM 8.6 mg/dl (8.6-10.4)
[2018-05-24 05:22] LABS: ANISOCYTOSIS SLIGHT; BANDS 6 % (0-2); LYMPHOCYTE 2 % (20-40); METAMYELOCYTE 3 % (0-0); MONOCYTE 15 % (0-10); NEUTROPHIL 74 % (50-75); NUCLEATED RED BLOOD CELL 19 % (0-0); PLATELET ESTIMATE MARKEDLY DECREASED (NORMAL); POIKILOCYTOSIS SLIGHT; TOTAL CELLS COUNTED 100
[2018-05-24] MEDS: Multivitamin Vitamin B Complex (Nephro-Vite) Tab PO SCH (08:11)
--- NOTE | 2018-05-24 08:28 | CP.PCM.PN ---
Subjective - Date & Time of Evaluation Date of Evaluation: 05/24/18 Time of Evaluation: 08:00 - Subjective Subjective: General Surgery Pt seen and examined. Denies pain. Platelets is 16 this AM. Had Platelet transfusion yesterday with a brief rise. Discussed case with ICU team and family. Objective - Vital Signs/Intake and Output Vital Signs (last 24 hours): Temp Pulse Resp BP Pulse Ox 98.9 F 127 H 29 H 104/52 L 100 05/24/18 04:00 05/24/18 07:45 05/24/18 07:00 05/24/18 06:53 05/24/18 07:00 Intake and Output: 05/24/18 05/24/18 06:59 18:59 Intake Total 100 100 Output Total 760 100 Balance -660 0 - Medications Medications: Current Medications Acetaminophen (Tylenol 325mg Tab) 650 mg PO Q6 PRN PRN Reason: Fever >100.4 F Last Admin: 05/19/18 19:00 Dose: 650 mg Albuterol/Ipratropium (Duoneb 3 Mg/0.5 Mg (3 Ml) Ud) 3 ml INH RQ6 [facility] Last Admin: 05/24/18 07:44 Dose: Not Given Enoxaparin Sodium (Lovenox) 30 mg SC DAILY [facility] Last Admin: 05/21/18 10:40 Dose: 30 mg Epoetin Koby (Procrit) 8,000 unit SC TTS [facility] Last Admin: 05/22/18 13:46 Dose: 8,000 unit Ergocalciferol (Drisdol 50,000 Intl Units Cap) 1 cap PO Q7D [facility] Last Admin: 05/21/18 11:56 Dose: 1 cap Ferrous Gluconate (Fergon) 324 mg PO TID [facility] Last Admin: 05/23/18 17:41 Dose: 324 mg Furosemide (Lasix) 40 mg IVP DAILY [facility] Last Admin: 05/23/18 14:42 Dose: 40 mg Hydroxyurea (Hydrea) 500 mg PO BID [facility] Last Admin: 05/15/18 10:00 Dose: 500 mg Ceftazidime/Avibactam 0.94 gm/ (Sodium Chloride) 100 mls @ 50 mls/hr IV Q12H [facility]; Protocol Last Admin: 05/24/18 05:54 Dose: 50 mls/hr Metronidazole (Flagyl) 500 mg in 100 mls @ 100 mls/hr IVPB Q8H [facility]; Protocol Last Admin: 05/24/18 08:11 Dose: 100 mls/hr Pantoprazole Sodium (Protonix Ec Tab) 40 mg PO DAILY [facility] Last Admin: 05/23/18 09:49 Dose: 40 mg Sodium Bicarbonate (Sodium Bicarbonate Tab) 1,300 mg PO BID [facility] Last Admin: 05/23/18 17:42 Dose: 1,300 mg Tramadol HCl (Ultram) 25 mg NG TID PRN PRN Reason: Pain, severe (8-10) Last Admin: 05/22/18 07:47 Dose: 25 mg Verapamil HCl (Verapamil Inj) 2.5 mg IVP Q4H PRN PRN Reason: Heart rate Vitamin B Complex/Vit C/Folic Acid (Nephro-Charlie) 1 tab PO 0800 [facility] Last Admin: 05/24/18 08:11 Dose: 1 tab - Labs Labs: 05/24/18 03:58 05/24/18 03:58 PT 19.5 SECONDS (9.7-12.2) H 05/21/18 09:52 INR 1.8 05/21/18 09:52 APTT 34 SECONDS (21-34) 05/21/18 09:52 - Constitutional Appears: Non-toxic, No Acute Distress (on BIPAP), Chronically Ill - Head Exam Head Exam: ATRAUMATIC, NORMOCEPHALIC - Eye Exam Eye Exam: EOMI, PERRL - Respiratory Exam Respiratory Exam: NORMAL BREATHING PATTERN. absent: Respiratory Distress (on BIPAP) - Cardiovascular Exam Cardiovascular Exam: Tachycardia, +S1, +S2 - GI/Abdominal Exam GI & Abdominal Exam: Soft, Organomegaly (spleen). absent: Distended, Firm, Guarding, Rigid, Tenderness, Rebound - Extremities Exam Extremities Exam: Pedal Edema (trace). absent: Calf Tenderness - Back Exam Back Exam: absent: CVA tenderness (L), CVA tenderness (R) - Neurological Exam Neurological Exam: Alert, Awake - Skin Skin Exam: Dry, Warm Assessment and Plan - Assessment and Plan (Free Text) Assessment: 67F with splenomegaly, thrombocytopenia, and anemia s/p IR embolization Plan: Condition not improving at this time. Case discussed with family member and ICU team. Family is considering DNR/DNI and comfort care options, and will discuss possible splenectomy. Transfuse PRN Will D/W Dr James Núñez [id number]
[2018-05-24] MEDS ORDERED: Albumin Human 5% (12.5 gm/250 ml) IV ONE (09:28)
[2018-05-24] MEDS: Pantoprazole 40 mg EC Tab PO SCH (10:12)
[2018-05-24] MEDS: Epoetin Alfa 10,000 unit/ml Dialysis SC SCH (10:12)
--- NOTE | 2018-05-24 10:32 | CP.PCM.PN ---
Subjective - Date & Time of Evaluation Date of Evaluation: 05/24/18 Time of Evaluation: 10:29 - Subjective Subjective: Nephrology Consultation Note: Assessment: critical Acute Kidney Injury (N17.9) likely due to ATN/sepsis with UTI, low BP, pre-renal state Metabolic acidosis, Hyponatremia Hypertensive Chronic Kidney Disease (I12.9) Chronic Kidney Disease (N18.3) Stage 3 with ? mg proteinuria myelofibrosis with hepatosplenomegaly and extensive varices, anemia/thrombocytopenia atrial fibrillation, right lower extremity DVT on anticoagulant developed Splenic hemorrhage s/p splenic artery embolization now with splenic infarction right hydronephrosis/pyelonephritis and Ureteral stricture s/p stent A fib with RVR Plan No emergent need for renal replacement therapy at this time but starting to develop some soft indications - discussed w/ family howevr at this time given concern for risk of infection/bleeding - want to hold off unless emergent as pt currently dose not want Maintain hemodynamics stable. Avoid hypotension. Patient not on ACEI/ARB due to recent SOFIA Monitor Input/Output, daily weights and renal function with basic metabolic panel saenz bicarb supplment to tid to help w/ mobilizing fluids - continue diuretic but albumin as well - discussed w/ student teacher anemia management as per heme: started iron and MVI. PRBC 2 unit 05/21/18. added epogen as well as d/w heme Dose meds/antibiotics for reduced GFR. Avoid fleets enema/magnesium based laxatives. Avoid nephrotoxins/NSAIDs/ iodinated contrast (unless needed emergently) Glycemic control Further work up/management as per primary team S: seen and examined feels fatigued and sob Physical Examination: General Appearance: comfortable, in no acute respiratory distress, co-operative . ill appearing Vitals reviewed and noted as below Head; Atraumatic, normocephalic ENT: no ulcers no thrush. Tongue is midline. Oropharynx: no rash or ulcers. EYES: Pupils are equal, round and reactive to light accommodation. Eye muscles and extraocular movement intact. Sclera is anicteric. Neck; supple no lymphadenopathy, no thyromegaly or bruit Lungs: Increased respiratory rate/effort. Breath sounds bilateral equal and few rales + Heart: Increased rate. s1s2 normal. No rub or gallop. Extremities: no edema. No varicose veins Neurological: Patient is sleeping Skin: Warm and dry. Normal turgor. No rash. Palpitation: Normal elasticity for age Abdomen: Abdomen is soft. Bowel sounds +. There is improved abdominal tenderness without guarding no rigidity no organomegaly Psych: limited insight and normal affect/mood MSK: no joint tenderness or swelling. Digits and nails normal, no deformity : kidney or bladder not palpable Labs/imaging reviewed. Past medical history, past surgical history, family history, social history, allergy reviewed and noted as below Family hx: no hx of CKD. Rest non-contributory echo moderate pHTN, normal LVEF UA 2+ protein 3+ blood TRACEY and Hep B/C neg Fena 0.5% Objective - Vital Signs/Intake and Output Vital Signs (last 24 hours): Temp Pulse Resp BP Pulse Ox 98.4 F 111 H 29 H 114/65 94 L 05/24/18 10:11 05/24/18 10:11 05/24/18 10:11 05/24/18 10:12 05/24/18 08:00 Intake and Output: 05/24/18 05/24/18 06:59 18:59 Intake Total 100 200 Output Total 760 175 Balance -660 25 - Medications Medications: Current Medications Acetaminophen (Tylenol 325mg Tab) 650 mg PO Q6 PRN PRN Reason: Fever >100.4 F Last Admin: 05/19/18 19:00 Dose: 650 mg Albuterol/Ipratropium (Duoneb 3 Mg/0.5 Mg (3 Ml) Ud) 3 ml INH RQ6 [facility] Last Admin: 05/24/18 07:44 Dose: Not Given Enoxaparin Sodium (Lovenox) 30 mg SC DAILY [facility] Last Admin: 05/21/18 10:40 Dose: 30 mg Epoetin Koby (Procrit) 8,000 unit SC TTS [facility] Last Admin: 05/24/18 10:12 Dose: 8,000 unit Ergocalciferol (Drisdol 50,000 Intl Units Cap) 1 cap PO Q7D [facility] Last Admin: 05/21/18 11:56 Dose: 1 cap Ferrous Gluconate (Fergon) 324 mg PO TID [facility] Last Admin: 05/24/18 10:11 Dose: 324 mg Furosemide (Lasix) 40 mg IVP DAILY [facility] Last Admin: 05/24/18 10:12 Dose: 40 mg Hydroxyurea (Hydrea) 500 mg PO BID [facility] Last Admin: 05/15/18 10:00 Dose: 500 mg Ceftazidime/Avibactam 0.94 gm/ (Sodium Chloride) 100 mls @ 50 mls/hr IV Q12H [facility]; Protocol Last Admin: 05/24/18 05:54 Dose: 50 mls/hr Pantoprazole Sodium (Protonix Ec Tab) 40 mg PO DAILY [facility] Last Admin: 05/24/18 10:12 Dose: 40 mg Sodium Bicarbonate (Sodium Bicarbonate Tab) 1,300 mg PO BID [facility] Last Admin: 05/24/18 10:16 Dose: 1,300 mg Tramadol HCl (Ultram) 25 mg NG TID PRN PRN Reason: Pain, severe (8-10) Last Admin: 05/22/18 07:47 Dose: 25 mg Verapamil HCl (Verapamil Inj) 2.5 mg IVP Q4H PRN PRN Reason: Heart rate Vitamin B Complex/Vit C/Folic Acid (Nephro-Charlie) 1 tab PO 0800 [facility] Last Admin: 05/24/18 08:11 Dose: 1 tab - Labs Labs: 05/24/18 03:58 05/24/18 03:58 PT 19.5 SECONDS (9.7-12.2) H 05/21/18 09:52 INR 1.8 05/21/18 09:52 APTT 34 SECONDS (21-34) 05/21/18 09:52
[2018-05-24] MEDS: MethylPREDNISolone 40 mg Vial IV SCH ×2 (12:43→21:10)
--- NOTE | 2018-05-24 15:38 | CP.PCM.PN ---
Subjective - Date & Time of Evaluation Date of Evaluation: 05/24/18 Time of Evaluation: 12:15 - Subjective Subjective: clinically same Objective - Vital Signs/Intake and Output Vital Signs (last 24 hours): Temp Pulse Resp BP Pulse Ox 97.8 F 118 H 25 H 132/79 93 L 05/24/18 12:00 05/24/18 14:15 05/24/18 14:15 05/24/18 14:15 05/24/18 14:15 Intake and Output: 05/24/18 05/24/18 06:59 18:59 Intake Total 100 406 Output Total 760 175 Balance -660 231 - Medications Medications: Current Medications Acetaminophen (Tylenol 325mg Tab) 650 mg PO Q6 PRN PRN Reason: Fever >100.4 F Last Admin: 05/19/18 19:00 Dose: 650 mg Albuterol/Ipratropium (Duoneb 3 Mg/0.5 Mg (3 Ml) Ud) 3 ml INH RQ6 [facility] Last Admin: 05/24/18 07:44 Dose: Not Given Bumetanide (Bumex) 2 mg PO BID [facility] Enoxaparin Sodium (Lovenox) 30 mg SC DAILY [facility] Last Admin: 05/21/18 10:40 Dose: 30 mg Epoetin Koby (Procrit) 8,000 unit SC TTS [facility] Last Admin: 05/24/18 10:12 Dose: 8,000 unit Ergocalciferol (Drisdol 50,000 Intl Units Cap) 1 cap PO Q7D [facility] Last Admin: 05/21/18 11:56 Dose: 1 cap Ferrous Gluconate (Fergon) 324 mg PO TID [facility] Last Admin: 05/24/18 14:18 Dose: Not Given Hydroxyurea (Hydrea) 500 mg PO BID [facility] Last Admin: 05/15/18 10:00 Dose: 500 mg Ceftazidime/Avibactam 0.94 gm/ (Sodium Chloride) 100 mls @ 50 mls/hr IV Q12H [facility]; Protocol Last Admin: 05/24/18 05:54 Dose: 50 mls/hr Methylprednisolone (Solu-Medrol) 30 mg IV Q8H [facility] Last Admin: 05/24/18 12:43 Dose: 30 mg Pantoprazole Sodium (Protonix Ec Tab) 40 mg PO DAILY [facility] Last Admin: 05/24/18 10:12 Dose: 40 mg Sodium Bicarbonate (Sodium Bicarbonate Tab) 1,300 mg PO TID [facility] Last Admin: 05/24/18 14:16 Dose: 1,300 mg Tramadol HCl (Ultram) 25 mg NG TID PRN PRN Reason: Pain, severe (8-10) Last Admin: 05/22/18 07:47 Dose: 25 mg Verapamil HCl (Verapamil Inj) 2.5 mg IVP Q4H PRN PRN Reason: Heart rate Vitamin B Complex/Vit C/Folic Acid (Nephro-Charlie) 1 tab PO 0800 [facility] Last Admin: 05/24/18 08:11 Dose: 1 tab - Labs Labs: 05/24/18 03:58 05/24/18 03:58 PT 19.5 SECONDS (9.7-12.2) H 05/21/18 09:52 INR 1.8 05/21/18 09:52 APTT 34 SECONDS (21-34) 05/21/18 09:52 - Constitutional Appears: Well - Head Exam Head Exam: ATRAUMATIC, NORMAL INSPECTION, NORMOCEPHALIC - Eye Exam Eye Exam: EOMI, Normal appearance, PERRL Pupil Exam: NORMAL ACCOMODATION, PERRL - ENT Exam ENT Exam: Mucous Membranes Moist, Normal Exam - Neck Exam Neck Exam: Full ROM, Normal Inspection. absent: Lymphadenopathy - Respiratory Exam Respiratory Exam: Decreased Breath Sounds - Cardiovascular Exam Cardiovascular Exam: REGULAR RHYTHM, +S1, +S2 - GI/Abdominal Exam GI & Abdominal Exam: Soft, Diminished Bowel Sounds - Rectal Exam Rectal Exam: Deferred Assessment and Plan (1) Abdominal pain Status: Acute (2) Anemia Status: Acute (3) Atrial fibrillation, new onset Status: Acute (4) CHF (congestive heart failure) Status: Acute (5) DVT (deep venous thrombosis) Status: Acute (6) Elevated brain natriuretic peptide (BNP) level Status: Acute (7) Hepatosplenomegaly Status: Acute (8) Hydronephrosis, right Status: Acute (9) Leucocytosis Status: Acute (10) Myelofibrosis Status: Acute (11) Portal vein thrombosis Status: Acute (12) Prophylactic measure Status: Acute (13) Pyelonephritis Status: Acute (14) Pyelonephritis due to Escherichia coli Status: Acute (15) Renal insufficiency Status: Acute (16) Spleen hematoma Status: Acute (17) Splenic hemorrhage Status: Acute (18) Thrombocytopenia Status: Acute (19) UTI (urinary tract infection) Status: Acute (20) Varices of other sites Status: Acute - Assessment and Plan (Free Text) Plan: Patient seen and examined at bedside Labs and meds reviewed Overnight events noted Discussed with family Family wishes for DNR Transfusion as needed Monitor input and output
--- NOTE | 2018-05-24 15:43 | CP.CCUPN ---
<Haley Meza L - Last Filed: 05/24/18 15:56> CCU Subjective - Physician Review Subjective (Free Text): Resident Critical Care Progress Note Patient examined at bedside. 1 unit of plateletpheresis given. Offers no complaints, but appears weak. Denies fever, chills, chest pain, shortness of breath. Family requests comfort measures and also for pressors to be started if blood pressure decreases. Solu-medrol 30 mg IV Q8H added to medication regimen. Critical Care Time Spent (in minutes): 35 CCU Objective - Vital Signs / Intake & Output Vital Signs (Last 4 hours): Vital Signs Temp Pulse Resp BP Pulse Ox 05/24/18 14:15 118 H 25 H 132/79 93 L 05/24/18 14:00 116 H 25 H 124/71 94 L 05/24/18 13:45 123 H 21 123/66 94 L 05/24/18 13:30 115 H 22 114/64 94 L 05/24/18 13:15 113 H 30 H 117/60 94 L 05/24/18 13:00 125 H 30 H 111/70 92 L 05/24/18 12:45 118 H 21 113/64 96 05/24/18 12:30 125 H 18 115/65 95 05/24/18 12:15 115 H 22 123/63 95 05/24/18 12:00 97.8 F 120 H 28 H 114/65 96 05/24/18 11:45 118 H 31 H 126/62 93 L Intake and Output (Last 8hrs): Intake & Output 05/24/18 05/24/18 05/24/18 06:59 14:59 22:59 Intake Total 100 406 Output Total 400 175 Balance -300 231 Weight 195 lb 4.8 oz Intake: Intake, IV Amount 100 200 Right Distal Port PICC 100 200 Blood Product 206 Apheresis Plts Acda Lr 206 Irr 3rd Unit [id number] Output: Urine 400 175 Urethral (Addison) 400 175 - Physical Exam Head: Positive for: Atraumatic, Normocephalic Pupils: Positive for: PERRL Extroacular Muscles: Positive for: EOMI Conjunctiva: Positive for: Normal Ears: Positive for: Normal Mouth: Positive for: Moist Mucous Membranes Nose (External): Positive for: Atraumatic Neck: Positive for: Normal Range of Motion Respiratory/Chest: Positive for: Good Air Exchange, Rhonchi. Negative for: Respiratory Distress Cardiovascular: Positive for: Regular Rate and Rhythm, Normal S1, S2, Tachycardic Abdomen: Positive for: Tenderness (diffuse ), Distention. Negative for: Peritoneal Signs, Rebound Upper Extremity: Positive for: Normal Inspection. Negative for: Cyanosis, Edema Lower Extremity: Positive for: Normal Inspection, Edema. Negative for: CALF TENDERNESS Neurological: Positive for: GCS=15, CN II-XII Intact, Speech Normal Skin: Positive for: Dry, Normal Color. Negative for: Rashes Psychiatric: Positive for: Alert, Oriented x 3, Anxious - Medications Active Medications: Active Medications Generic Name Dose Route Start Last Admin Trade Name Freq PRN Reason Stop Dose Admin Acetaminophen 650 mg 05/15/18 08:56 05/19/18 19:00 Tylenol 325mg Tab PO 650 mg Q6 PRN Administration Fever >100.4 F Albuterol/Ipratropium 3 ml 05/15/18 12:00 05/24/18 07:44 Duoneb 3 Mg/0.5 Mg (3 Ml) Ud INH Not Given RQ6 NAN Bumetanide 2 mg 05/24/18 18:00 Bumex PO BID NAN Enoxaparin Sodium 30 mg 05/15/18 10:00 05/21/18 10:40 Lovenox SC 30 mg DAILY NAN Administration Epoetin Koby 8,000 unit 05/22/18 10:00 05/24/18 10:12 Procrit SC 8,000 unit TTS NAN Administration Ergocalciferol 1 cap 05/21/18 11:00 05/21/18 11:56 Drisdol 50,000 Intl Units Cap PO 1 cap Q7D NAN Administration Ferrous Gluconate 324 mg 05/21/18 14:00 05/24/18 14:18 Fergon PO Not Given TID NAN Hydroxyurea 500 mg 05/15/18 10:00 05/15/18 10:00 Hydrea PO 500 mg BID NAN Administration Ceftazidime/Avibactam 0.94 gm/ 100 mls @ 50 mls/hr 05/21/18 06:00 05/24/18 05:54 Sodium Chloride IV 50 mls/hr Q12H NAN Administration Protocol Methylprednisolone 30 mg 05/24/18 12:15 05/24/18 12:43 Solu-Medrol IV 30 mg Q8H NAN Administration Pantoprazole Sodium 40 mg 05/23/18 10:00 05/24/18 10:12 Protonix Ec Tab PO 40 mg DAILY NAN Administration Sodium Bicarbonate 1,300 mg 05/24/18 14:00 05/24/18 14:16 Sodium Bicarbonate Tab PO 1,300 mg TID NAN Administration Tramadol HCl 25 mg 05/22/18 07:16 05/22/18 07:47 Ultram NG 25 mg TID PRN Administration Pain, severe (8-10) Verapamil HCl 2.5 mg 05/24/18 07:25 Verapamil Inj IVP Q4H PRN Heart rate Vitamin B Complex/Vit C/Folic Acid 1 tab 05/22/18 08:00 05/24/18 08:11 Nephro-Charlie PO 1 tab 0800 NAN Administration - Patient Studies Lab Studies: Lab Studies 05/24/18 05/24/18 05/24/18 Range/Units 03:58 03:58 03:58 WBC 19.0 H (4.8-10.8) K/uL RBC 3.74 L (3.80-5.20) Mil/uL Hgb 10.8 L (11.0-16.0) g/dL Hct 34.0 (34.0-47.0) % MCV 90.8 (81.0-99.0) fL MCH 28.8 (27.0-31.0) pg MCHC 31.7 L (33.0-37.0) g/dL RDW 19.2 H (11.5-14.5) % Plt Count 16 L* D (130-400) K/uL MPV 9.8 (7.2-11.7) fL Neut % (Auto) 90.6 H (50.0-75.0) % Lymph % (Auto) 2.7 L (20.0-40.0) % [place] % (Auto) 3.9 (0.0-10.0) % Eos % (Auto) 0.8 (0.0-4.0) % Baso % (Auto) 2.0 (0.0-2.0) % Neut # (Auto) 17.2 H (1.8-7.0) K/uL Lymph # (Auto) 0.5 L (1.0-4.3) K/uL [place] # (Auto) 0.7 (0.0-0.8) K/uL Eos # (Auto) 0.1 (0.0-0.7) K/uL Baso # (Auto) 0.4 H (0.0-0.2) K/uL Neutrophils % (Manual) 74 (50-75) % Band Neutrophils % 6 H (0-2) % Lymphocytes % (Manual) 2 L (20-40) % Monocytes % (Manual) 15 H (0-10) % Metamyelocytes % 3 H (0-0) % Myelocytes % (0-0) % Nucleated RBC % 19 H (0-0) % Platelet Estimate Markedly decreased L (NORMAL) Polychromasia Hypochromasia (manual) Poikilocytosis (manual Slight Anisocytosis (manual) Slight Fibrinogen 428 H (200-400) mg/dL pO2 (30-55) mm/Hg VBG pH (7.32-7.43) VBG pCO2 (40-60) mmHg VBG HCO3 mmol/L VBG Total CO2 (22-28) mmol/L VBG O2 Sat (Calc) (40-65) % VBG Base Excess (0.0-2.0) mmol/L VBG Potassium (3.6-5.2) mmol/L Sodium 139 (132-148) mmol/l Chloride 109 H (98-107) mmol/L Glucose (65-105) mg/dl Lactate (0.7-2.1) mmol/L Potassium 4.3 (3.6-5.2) mmol/L Carbon Dioxide 15 L (22-30) mmol/L Anion Gap 19 (10-20) BUN 106 H* (7-17) mg/dL Creatinine 2.7 H (0.7-1.2) mg/dL Est GFR ( Amer) 21 Est GFR (Non-Af Amer) 18 Random Glucose 116 H (65-105) mg/dL Calcium 8.6 (8.6-10.4) mg/dl Phosphorus 4.4 (2.5-4.5) mg/dL Magnesium 2.2 (1.6-2.3) mg/dL Total Bilirubin 0.8 (0.2-1.3) mg/dL AST 8 L (14-36) U/L ALT 26 (9-52) U/L Alkaline Phosphatase 92 (38-126) U/L Total Protein 5.5 L (6.3-8.3) g/dL Albumin 2.7 L (3.5-5.0) g/dL Globulin 2.8 (2.2-3.9) gm/dL Albumin/Globulin Ratio 1.0 (1.0-2.1) Plasma Cortisol PM (1.7-14.1) ug/dL Venous Blood Potassium (3.6-5.2) mmol/L 05/24/18 05/23/18 05/23/18 Range/Units 01:00 15:08 15:08 WBC (4.8-10.8) K/uL RBC (3.80-5.20) Mil/uL Hgb (11.0-16.0) g/dL Hct (34.0-47.0) % MCV (81.0-99.0) fL MCH (27.0-31.0) pg MCHC (33.0-37.0) g/dL RDW (11.5-14.5) % Plt Count (130-400) K/uL MPV (7.2-11.7) fL Neut % (Auto) (50.0-75.0) % Lymph % (Auto) (20.0-40.0) % [place] % (Auto) (0.0-10.0) % Eos % (Auto) (0.0-4.0) % Baso % (Auto) (0.0-2.0) % Neut # (Auto) (1.8-7.0) K/uL Lymph # (Auto) (1.0-4.3) K/uL [place] # (Auto) (0.0-0.8) K/uL Eos # (Auto) (0.0-0.7) K/uL Baso # (Auto) (0.0-0.2) K/uL Neutrophils % (Manual) 71 (50-75) % Band Neutrophils % 8 H (0-2) % Lymphocytes % (Manual) 6 L (20-40) % Monocytes % (Manual) 12 H (0-10) % Metamyelocytes % 2 H (0-0) % Myelocytes % 1 H (0-0) % Nucleated RBC % 20 H (0-0) % Platelet Estimate Decreased L (NORMAL) Polychromasia Slight Hypochromasia (manual) Slight Poikilocytosis (manual Anisocytosis (manual) Slight Fibrinogen (200-400) mg/dL pO2 41 (30-55) mm/Hg VBG pH 7.29 L (7.32-7.43) VBG pCO2 38 L (40-60) mmHg VBG HCO3 18.2 mmol/L VBG Total CO2 19.5 L (22-28) mmol/L VBG O2 Sat (Calc) 78.6 H (40-65) % VBG Base Excess -7.7 L (0.0-2.0) mmol/L VBG Potassium 4.1 (3.6-5.2) mmol/L Sodium 135.0 (132-148) mmol/l Chloride 110.0 H (98-107) mmol/L Glucose 115 H (65-105) mg/dl Lactate 0.9 (0.7-2.1) mmol/L Potassium (3.6-5.2) mmol/L Carbon Dioxide (22-30) mmol/L Anion Gap (10-20) BUN (7-17) mg/dL Creatinine (0.7-1.2) mg/dL Est GFR ( Amer) Est GFR (Non-Af Amer) Random Glucose (65-105) mg/dL Calcium (8.6-10.4) mg/dl Phosphorus (2.5-4.5) mg/dL Magnesium (1.6-2.3) mg/dL Total Bilirubin (0.2-1.3) mg/dL AST (14-36) U/L ALT (9-52) U/L Alkaline Phosphatase (38-126) U/L Total Protein (6.3-8.3) g/dL Albumin (3.5-5.0) g/dL Globulin (2.2-3.9) gm/dL Albumin/Globulin Ratio (1.0-2.1) Plasma Cortisol PM 39.9 H (1.7-14.1) ug/dL Venous Blood Potassium 4.1 (3.6-5.2) mmol/L Laboratory Results - last 24 hr 05/23/18 05/23/18 05/24/18 15:08 15:08 01:00 WBC RBC Hgb Hct MCV MCH MCHC RDW Plt Count MPV Neut % (Auto) Lymph % (Auto) [place] % (Auto) Eos % (Auto) Baso % (Auto) Neut # (Auto) Lymph # (Auto) [place] # (Auto) Eos # (Auto) Baso # (Auto) Neutrophils % (Manual) 71 Band Neutrophils % 8 H Lymphocytes % (Manual) 6 L Monocytes % (Manual) 12 H Metamyelocytes % 2 H Myelocytes % 1 H Nucleated RBC % 20 H Platelet Estimate Decreased L Polychromasia Slight Hypochromasia (manual) Slight Poikilocytosis (manual Anisocytosis (manual) Slight Fibrinogen pO2 41 VBG pH 7.29 L VBG pCO2 38 L VBG HCO3 18.2 VBG Total CO2 19.5 L VBG O2 Sat (Calc) 78.6 H VBG Base Excess -7.7 L VBG Potassium 4.1 Sodium 135.0 Chloride 110.0 H Glucose 115 H Lactate 0.9 Potassium Carbon Dioxide Anion Gap BUN Creatinine Est GFR ( Amer) Est GFR (Non-Af Amer) Random Glucose Calcium Phosphorus Magnesium Total Bilirubin AST ALT Alkaline Phosphatase Total Protein Albumin Globulin Albumin/Globulin Ratio Plasma Cortisol PM 39.9 H Venous Blood Potassium 4.1 05/24/18 05/24/18 05/24/18 03:58 03:58 03:58 WBC 19.0 H RBC 3.74 L Hgb 10.8 L Hct 34.0 MCV 90.8 MCH 28.8 MCHC 31.7 L RDW 19.2 H Plt Count 16 L* D MPV 9.8 Neut % (Auto) 90.6 H Lymph % (Auto) 2.7 L [place] % (Auto) 3.9 Eos % (Auto) 0.8 Baso % (Auto) 2.0 Neut # (Auto) 17.2 H Lymph # (Auto) 0.5 L [place] # (Auto) 0.7 Eos # (Auto) 0.1 Baso # (Auto) 0.4 H Neutrophils % (Manual) 74 Band Neutrophils % 6 H Lymphocytes % (Manual) 2 L Monocytes % (Manual) 15 H Metamyelocytes % 3 H Myelocytes % Nucleated RBC % 19 H Platelet Estimate Markedly decreased L Polychromasia Hypochromasia (manual) Poikilocytosis (manual Slight Anisocytosis (manual) Slight Fibrinogen 428 H pO2 VBG pH VBG pCO2 VBG HCO3 VBG Total CO2 VBG O2 Sat (Calc) VBG Base Excess VBG Potassium Sodium 139 Chloride 109 H Glucose Lactate Potassium 4.3 Carbon Dioxide 15 L Anion Gap 19 BUN 106 H* Creatinine 2.7 H Est GFR ( Amer) 21 Est GFR (Non-Af Amer) 18 Random Glucose 116 H Calcium 8.6 Phosphorus 4.4 Magnesium 2.2 Total Bilirubin 0.8 AST 8 L ALT 26 Alkaline Phosphatase 92 Total Protein 5.5 L Albumin 2.7 L Globulin 2.8 Albumin/Globulin Ratio 1.0 Plasma Cortisol PM Venous Blood Potassium Review of Systems - Review of Systems All systems: reviewed and no additional remarkable complaints except (as stated in HPI) Critical Care Progress Note - Nutrition Nutrition: Nutrition Category Date Time Status Mechanically altered [Dysphagia/Modified Consistency Diets 05/22/18 Lunch Active Diet] [DIET] Assessment/Plan - Assessment and Plan (Free Text) Assessment: 67 year old female with a PMHx of myelofibrosis, HTN, renal insufficiency admitt ed with fever and UTI. 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 On previous admission patient had splenic embolization. Plan: Neuro: - AAO x3 Pulm: - nasal cannula as tolerated - maintain SPO2 > 92% - Duonebs 3 ml INH RQ6 CV: - Eliquis held 09/20 acute hemorrhagic process emanating from the spleen - ECHO 05/21 shows LVEF 62%, small pericardial effusion inferior to LV, mild AR, paradoxical septal motion - Dopplers showed acute thrombosis of right gastrocnemius vein with severe reduction of venous return. - Abd/pelvis CT shows small left pleural effusion, minimal pericardial effusion - Persistent tachycardia GI: - s/p IR splenic artery embolization - 05/[address] shows large infarcted spleen predominantly liquified with gas and fluid. Suspicion for hemorrhage into infarcted spleen. - Pepcid 20mg PO daily - advanced to soft diet - solu-medrol IV 30 mg Q8H - Surgery consulted for possible splenectomy. Appreciate recs. Renal: - SOFIA - UA shows 2+ protein, 3+ blood - monitor I and O - Replete electrolytes as needed - Urology Dr Flor Irvin consulted. Appreciate recs. - Nephrology Dr. Wylie consulted. Recs appreciated. ID: - 05/17 BCx show NG after 4 days - Tygacil 100 mg given - ID Dr. Jackson consulted. Recs appreciated. - Avycaz 0.94 g IV q12h (started 05/15) - metronidazole 500 mg IV Q8H (started 05/21) Heme/Onc - Hx of myelofibrosis with chronic leukocytosis - Dr. Mcbride consulted. Recs appreciated. - Holding Hydrea, Jakafi - 1 unit platelets given today - Ferrous gluconate 324 mg PO TID Endo: - Maintain euglycemia PPX: Pepcid 20 mg PO daily, Lovenox 30 mg SC daily Case and plan was reviewed and discussed with Dr. Fouzia Meza PGY-1 - Date & Time Date: 05/24/18 Time: 08:00 <Terrance Fragoso - Last Filed: 05/24/18 17:07> CCU Objective - Vital Signs / Intake & Output Vital Signs (Last 4 hours): Vital Signs Temp Pulse Resp BP Pulse Ox 05/24/18 16:00 97.2 F L 117 H 27 H 93 L 05/24/18 15:24 122/82 05/24/18 15:00 117 H 27 H 92 L 05/24/18 14:15 118 H 25 H 132/79 93 L 05/24/18 14:00 116 H 25 H 124/71 94 L 05/24/18 13:45 123 H 21 123/66 94 L 05/24/18 13:30 115 H 22 114/64 94 L 05/24/18 13:15 113 H 30 H 117/60 94 L Intake and Output (Last 8hrs): Intake & Output 05/24/18 05/24/18 05/24/18 06:59 14:59 22:59 Intake Total 100 641 50 Output Total 400 435 100 Balance -300 206 -50 Weight 195 lb 4.8 oz Intake: Intake, IV Amount 100 275 50 Right Distal Port PICC 100 275 50 Oral 160 Blood Product 206 Apheresis Plts Acda Lr 206 Irr 3rd Unit [id number] Output: Urine 400 435 100 Urethral (Addison) 400 435 100 Other: # Bowel Movements 1 - Medications Active Medications: Active Medications Generic Name Dose Route Start Last Admin Trade Name Freq PRN Reason Stop Dose Admin Acetaminophen 650 mg 05/15/18 08:56 05/19/18 19:00 Tylenol 325mg Tab PO 650 mg Q6 PRN Administration Fever >100.4 F Albuterol/Ipratropium 3 ml 05/15/18 12:00 05/24/18 07:44 Duoneb 3 Mg/0.5 Mg (3 Ml) Ud INH Not Given RQ6 NAN Bumetanide 2 mg 05/24/18 18:00 Bumex PO BID NAN Enoxaparin Sodium 30 mg 05/15/18 10:00 05/21/18 10:40 Lovenox SC 30 mg DAILY NAN Administration Epoetin Koby 8,000 unit 05/22/18 10:00 05/24/18 10:12 Procrit SC 8,000 unit TTS NAN Administration Ergocalciferol 1 cap 05/21/18 11:00 05/21/18 11:56 Drisdol 50,000 Intl Units Cap PO 1 cap Q7D NAN Administration Ferrous Gluconate 324 mg 05/21/18 14:00 05/24/18 14:18 Fergon PO Not Given TID [facility] Hydroxyurea 500 mg 05/15/18 10:00 05/15/18 10:00 Hydrea PO 500 mg BID NAN Administration Ceftazidime/Avibactam 0.94 gm/ 100 mls @ 50 mls/hr 05/21/18 06:00 05/24/18 05:54 Sodium Chloride IV 50 mls/hr Q12H NAN Administration Protocol Metronidazole 500 mg in 100 mls @ 100 mls/hr 05/24/18 16:00 05/24/18 16:37 Flagyl IVPB 100 mls/hr Q8H NAN Administration Protocol Methylprednisolone 30 mg 05/24/18 12:15 05/24/18 12:43 Solu-Medrol IV 30 mg Q8H NAN Administration Pantoprazole Sodium 40 mg 05/23/18 10:00 05/24/18 10:12 Protonix Ec Tab PO 40 mg DAILY NAN Administration Sodium Bicarbonate 1,300 mg 05/24/18 14:00 05/24/18 14:16 Sodium Bicarbonate Tab PO 1,300 mg TID NAN Administration Tramadol HCl 25 mg 05/22/18 07:16 05/22/18 07:47 Ultram NG 25 mg TID PRN Administration Pain, severe (8-10) Verapamil HCl 2.5 mg 05/24/18 07:25 Verapamil Inj IVP Q4H PRN Heart rate Vitamin B Complex/Vit C/Folic Acid 1 tab 05/22/18 08:00 05/24/18 08:11 Nephro-Charlie PO 1 tab 0800 NAN Administration - Patient Studies Lab Studies: Lab Studies 05/24/18 05/24/18 05/24/18 Range/Units 03:58 03:58 03:58 WBC 19.0 H (4.8-10.8) K/uL RBC 3.74 L (3.80-5.20) Mil/uL Hgb 10.8 L (11.0-16.0) g/dL Hct 34.0 (34.0-47.0) % MCV 90.8 (81.0-99.0) fL MCH 28.8 (27.0-31.0) pg MCHC 31.7 L (33.0-37.0) g/dL RDW 19.2 H (11.5-14.5) % Plt Count 16 L* D (130-400) K/uL MPV 9.8 (7.2-11.7) fL Neut % (Auto) 90.6 H (50.0-75.0) % Lymph % (Auto) 2.7 L (20.0-40.0) % [place] % (Auto) 3.9 (0.0-10.0) % Eos % (Auto) 0.8 (0.0-4.0) % Baso % (Auto) 2.0 (0.0-2.0) % Neut # (Auto) 17.2 H (1.8-7.0) K/uL Lymph # (Auto) 0.5 L (1.0-4.3) K/uL [place] # (Auto) 0.7 (0.0-0.8) K/uL Eos # (Auto) 0.1 (0.0-0.7) K/uL Baso # (Auto) 0.4 H (0.0-0.2) K/uL Neutrophils % (Manual) 74 (50-75) % Band Neutrophils % 6 H (0-2) % Lymphocytes % (Manual) 2 L (20-40) % Monocytes % (Manual) 15 H (0-10) % Metamyelocytes % 3 H (0-0) % Nucleated RBC % 19 H (0-0) % Platelet Estimate Markedly decreased L (NORMAL) Poikilocytosis (manual Slight Anisocytosis (manual) Slight Fibrinogen 428 H (200-400) mg/dL pO2 (30-55) mm/Hg VBG pH (7.32-7.43) VBG pCO2 (40-60) mmHg VBG HCO3 mmol/L VBG Total CO2 (22-28) mmol/L VBG O2 Sat (Calc) (40-65) % VBG Base Excess (0.0-2.0) mmol/L VBG Potassium (3.6-5.2) mmol/L Sodium 139 (132-148) mmol/l Chloride 109 H (98-107) mmol/L Glucose (65-105) mg/dl Lactate (0.7-2.1) mmol/L Potassium 4.3 (3.6-5.2) mmol/L Carbon Dioxide 15 L (22-30) mmol/L Anion Gap 19 (10-20) BUN 106 H* (7-17) mg/dL Creatinine 2.7 H (0.7-1.2) mg/dL Est GFR ( Amer) 21 Est GFR (Non-Af Amer) 18 Random Glucose 116 H (65-105) mg/dL Calcium 8.6 (8.6-10.4) mg/dl Phosphorus 4.4 (2.5-4.5) mg/dL Magnesium 2.2 (1.6-2.3) mg/dL Total Bilirubin 0.8 (0.2-1.3) mg/dL AST 8 L (14-36) U/L ALT 26 (9-52) U/L Alkaline Phosphatase 92 (38-126) U/L Total Protein 5.5 L (6.3-8.3) g/dL Albumin 2.7 L (3.5-5.0) g/dL Globulin 2.8 (2.2-3.9) gm/dL Albumin/Globulin Ratio 1.0 (1.0-2.1) Venous Blood Potassium (3.6-5.2) mmol/L 05/24/18 Range/Units 01:00 WBC (4.8-10.8) K/uL RBC (3.80-5.20) Mil/uL Hgb (11.0-16.0) g/dL Hct (34.0-47.0) % MCV (81.0-99.0) fL MCH (27.0-31.0) pg MCHC (33.0-37.0) g/dL RDW (11.5-14.5) % Plt Count (130-400) K/uL MPV (7.2-11.7) fL Neut % (Auto) (50.0-75.0) % Lymph % (Auto) (20.0-40.0) % [place] % (Auto) (0.0-10.0) % Eos % (Auto) (0.0-4.0) % Baso % (Auto) (0.0-2.0) % Neut # (Auto) (1.8-7.0) K/uL Lymph # (Auto) (1.0-4.3) K/uL [place] # (Auto) (0.0-0.8) K/uL Eos # (Auto) (0.0-0.7) K/uL Baso # (Auto) (0.0-0.2) K/uL Neutrophils % (Manual) (50-75) % Band Neutrophils % (0-2) % Lymphocytes % (Manual) (20-40) % Monocytes % (Manual) (0-10) % Metamyelocytes % (0-0) % Nucleated RBC % (0-0) % Platelet Estimate (NORMAL) Poikilocytosis (manual Anisocytosis (manual) Fibrinogen (200-400) mg/dL pO2 41 (30-55) mm/Hg VBG pH 7.29 L (7.32-7.43) VBG pCO2 38 L (40-60) mmHg VBG HCO3 18.2 mmol/L VBG Total CO2 19.5 L (22-28) mmol/L VBG O2 Sat (Calc) 78.6 H (40-65) % VBG Base Excess -7.7 L (0.0-2.0) mmol/L VBG Potassium 4.1 (3.6-5.2) mmol/L Sodium 135.0 (132-148) mmol/l Chloride 110.0 H (98-107) mmol/L Glucose 115 H (65-105) mg/dl Lactate 0.9 (0.7-2.1) mmol/L Potassium (3.6-5.2) mmol/L Carbon Dioxide (22-30) mmol/L Anion Gap (10-20) BUN (7-17) mg/dL Creatinine (0.7-1.2) mg/dL Est GFR ( Amer) Est GFR (Non-Af Amer) Random Glucose (65-105) mg/dL Calcium (8.6-10.4) mg/dl Phosphorus (2.5-4.5) mg/dL Magnesium (1.6-2.3) mg/dL Total Bilirubin (0.2-1.3) mg/dL AST (14-36) U/L ALT (9-52) U/L Alkaline Phosphatase (38-126) U/L Total Protein (6.3-8.3) g/dL Albumin (3.5-5.0) g/dL Globulin (2.2-3.9) gm/dL Albumin/Globulin Ratio (1.0-2.1) Venous Blood Potassium 4.1 (3.6-5.2) mmol/L Laboratory Results - last 24 hr 05/24/18 05/24/18 05/24/18 01:00 03:58 03:58 WBC 19.0 H RBC 3.74 L Hgb 10.8 L Hct 34.0 MCV 90.8 MCH 28.8 MCHC 31.7 L RDW 19.2 H Plt Count 16 L* D MPV 9.8 Neut % (Auto) 90.6 H Lymph % (Auto) 2.7 L [place] % (Auto) 3.9 Eos % (Auto) 0.8 Baso % (Auto) 2.0 Neut # (Auto) 17.2 H Lymph # (Auto) 0.5 L [place] # (Auto) 0.7 Eos # (Auto) 0.1 Baso # (Auto) 0.4 H Neutrophils % (Manual) 74 Band Neutrophils % 6 H Lymphocytes % (Manual) 2 L Monocytes % (Manual) 15 H Metamyelocytes % 3 H Nucleated RBC % 19 H Platelet Estimate Markedly decreased L Poikilocytosis (manual Slight Anisocytosis (manual) Slight Fibrinogen 428 H pO2 41 VBG pH 7.29 L VBG pCO2 38 L VBG HCO3 18.2 VBG Total CO2 19.5 L VBG O2 Sat (Calc) 78.6 H VBG Base Excess -7.7 L VBG Potassium 4.1 Sodium 135.0 Chloride 110.0 H Glucose 115 H Lactate 0.9 Potassium Carbon Dioxide Anion Gap BUN Creatinine Est GFR ( Amer) Est GFR (Non-Af Amer) Random Glucose Calcium Phosphorus Magnesium Total Bilirubin AST ALT Alkaline Phosphatase Total Protein Albumin Globulin Albumin/Globulin Ratio Venous Blood Potassium 4.1 05/24/18 03:58 WBC RBC Hgb Hct MCV MCH MCHC RDW Plt Count MPV Neut % (Auto) Lymph % (Auto) [place] % (Auto) Eos % (Auto) Baso % (Auto) Neut # (Auto) Lymph # (Auto) [place] # (Auto) Eos # (Auto) Baso # (Auto) Neutrophils % (Manual) Band Neutrophils % Lymphocytes % (Manual) Monocytes % (Manual) Metamyelocytes % Nucleated RBC % Platelet Estimate Poikilocytosis (manual Anisocytosis (manual) Fibrinogen pO2 VBG pH VBG pCO2 VBG HCO3 VBG Total CO2 VBG O2 Sat (Calc) VBG Base Excess VBG Potassium Sodium 139 Chloride 109 H Glucose Lactate Potassium 4.3 Carbon Dioxide 15 L Anion Gap 19 BUN 106 H* Creatinine 2.7 H Est GFR ( Amer) 21 Est GFR (Non-Af Amer) 18 Random Glucose 116 H Calcium 8.6 Phosphorus 4.4 Magnesium 2.2 Total Bilirubin 0.8 AST 8 L ALT 26 Alkaline Phosphatase 92 Total Protein 5.5 L Albumin 2.7 L Globulin 2.8 Albumin/Globulin Ratio 1.0 Venous Blood Potassium Critical Care Progress Note - Nutrition Nutrition: Nutrition Category Date Time Status Mechanically altered [Dysphagia/Modified Consistency Diets 05/22/18 Lunch Active Diet] [DIET] Attending/Attestation - Attestation I have personally seen and examined this patient.: Yes I have fully participated in the care of the patient.: Yes I have reviewed all pertinent clinical information: Yes Notes (Text): 05/24/18 17:05 I have seen and examined the patient. Medical records, lab studies, and imaging were reviewed by me and a management plan was formulated on multidisciplinary rounds with resident Dr. De Leon. I agree with their documented assessment and p ned. Patient in inflammatory state, c/b pulmonary edema, worsening oliguric renal failure, and refractory afib. Continue Verapamil for rate control. Started steroids for anti-inflammatory treatment. Family currently does not want surgery or dialysis. Critical Care Time 35 minutes. Multi-disciplinary rounds were performed with house staff, nursing, speech therapy, respiratory therapy, pharmacy and nutrition with integrated input from the primary team/attending and other consulting services. The documented time is cumulative and includes review of patient data/exams/labs/chart review and examination of the patient on rounds and throughout the day; time is exclusive of any procedures or teaching time.
--- NOTE | 2018-05-24 15:59 | CP.PCM.PN ---
Subjective - Date & Time of Evaluation Date of Evaluation: 05/24/18 Time of Evaluation: 15:55 - Subjective Subjective: INFECTIOUS DISEASE ICU#2 PROGRESS NOTES JANY PATTERSON MD, FACP 05/24/2018 CHART REVIEWED PT EXAMINED CASE DISCUSSED CASE DISCUSSED WITH MEDICAL STAFF AND SATELLITE PROJECT SITE MONITOR ALSO TACHYCARDIC AND SOB ABD DISTENDED WITH LEFT UPPER QUADRANT PAIN SINCE SPLENIC ARTERY THROMBOSIS EXT 3+EDEMA-CHRONIC NOW PLEASE CONTINUE AVYCAZ AND FLAGYL-NO CHANGES WITHOUT MY KNOWLEDGE Objective - Vital Signs/Intake and Output Vital Signs (last 24 hours): Temp Pulse Resp BP Pulse Ox 97.8 F 118 H 25 H 132/79 93 L 05/24/18 12:00 05/24/18 14:15 05/24/18 14:15 05/24/18 14:15 05/24/18 14:15 Intake and Output: 05/24/18 05/24/18 06:59 18:59 Intake Total 100 406 Output Total 760 175 Balance -660 231 - Medications Medications: Current Medications Acetaminophen (Tylenol 325mg Tab) 650 mg PO Q6 PRN PRN Reason: Fever >100.4 F Last Admin: 05/19/18 19:00 Dose: 650 mg Albuterol/Ipratropium (Duoneb 3 Mg/0.5 Mg (3 Ml) Ud) 3 ml INH RQ6 NAN Last Admin: 05/24/18 07:44 Dose: Not Given Bumetanide (Bumex) 2 mg PO BID NAN Enoxaparin Sodium (Lovenox) 30 mg SC DAILY [facility] Last Admin: 05/21/18 10:40 Dose: 30 mg Epoetin Koby (Procrit) 8,000 unit SC TTS NAN Last Admin: 05/24/18 10:12 Dose: 8,000 unit Ergocalciferol (Drisdol 50,000 Intl Units Cap) 1 cap PO Q7D NAN Last Admin: 05/21/18 11:56 Dose: 1 cap Ferrous Gluconate (Fergon) 324 mg PO TID NAN Last Admin: 05/24/18 14:18 Dose: Not Given Hydroxyurea (Hydrea) 500 mg PO BID [facility] Last Admin: 05/15/18 10:00 Dose: 500 mg Ceftazidime/Avibactam 0.94 gm/ (Sodium Chloride) 100 mls @ 50 mls/hr IV Q12H [facility]; Protocol Last Admin: 05/24/18 05:54 Dose: 50 mls/hr Metronidazole (Flagyl) 500 mg in 100 mls @ 100 mls/hr IVPB Q8H [facility]; Protocol Methylprednisolone (Solu-Medrol) 30 mg IV Q8H [facility] Last Admin: 05/24/18 12:43 Dose: 30 mg Pantoprazole Sodium (Protonix Ec Tab) 40 mg PO DAILY [facility] Last Admin: 05/24/18 10:12 Dose: 40 mg Sodium Bicarbonate (Sodium Bicarbonate Tab) 1,300 mg PO TID NAN Last Admin: 05/24/18 14:16 Dose: 1,300 mg Tramadol HCl (Ultram) 25 mg NG TID PRN PRN Reason: Pain, severe (8-10) Last Admin: 05/22/18 07:47 Dose: 25 mg Verapamil HCl (Verapamil Inj) 2.5 mg IVP Q4H PRN PRN Reason: Heart rate Vitamin B Complex/Vit C/Folic Acid (Nephro-Charlie) 1 tab PO 0800 [facility] Last Admin: 05/24/18 08:11 Dose: 1 tab - Labs Labs: 05/24/18 03:58 05/24/18 03:58 PT 19.5 SECONDS (9.7-12.2) H 05/21/18 09:52 INR 1.8 05/21/18 09:52 APTT 34 SECONDS (21-34) 05/21/18 09:52
--- NOTE | 2018-05-24 16:18 | RAD ---
Date of service: 05/24/2018 HISTORY: eval pulm congestion COMPARISON: Comparison chest 05/23/2018 is is FINDINGS: No change right-sided PICC line LUNGS: Mild diffuse increased vascularity suggesting mild chronic compensated pulmonary vascular congestion. Bilateral lower lobe alveolar-type infiltrates and bilateral effusions. PLEURA: As above. No pneumothorax apparent. CARDIOVASCULAR: Cardiomegaly. OSSEOUS STRUCTURES: No significant abnormalities. VISUALIZED UPPER ABDOMEN: Normal. OTHER FINDINGS: None. IMPRESSION: Mild diffuse increased vascularity suggesting mild chronic compensated pulmonary vascular congestion. Bilateral lower lobe alveolar-type infiltrates and bilateral effusions.
[2018-05-24 18:12] LABS: ANCA SCREEN NEGATIVE (NEGATIVE)
--- NOTE | 2018-05-24 22:30 | CP.PCM.PN ---
Subjective - Date & Time of Evaluation Date of Evaluation: 05/23/18 Time of Evaluation: 19:20 - Subjective Subjective: Patient seen and evaluated Weak and c/o dyspnea Objective - Vital Signs/Intake and Output Vital Signs (last 24 hours): Temp Pulse Resp BP Pulse Ox 97.2 F L 108 H 36 H 135/75 92 L 05/24/18 16:00 05/24/18 19:23 05/24/18 19:23 05/24/18 19:23 05/24/18 19:23 Intake and Output: 05/24/18 05/25/18 18:59 06:59 Intake Total 791 175 Output Total 700 50 Balance 91 125 - Medications Medications: Current Medications Acetaminophen (Tylenol 325mg Tab) 650 mg PO Q6 PRN PRN Reason: Fever >100.4 F Last Admin: 05/19/18 19:00 Dose: 650 mg Albuterol/Ipratropium (Duoneb 3 Mg/0.5 Mg (3 Ml) Ud) 3 ml INH RQ6 [facility] Last Admin: 05/24/18 20:04 Dose: Not Given Bumetanide (Bumex) 2 mg PO BID [facility] Last Admin: 05/24/18 19:03 Dose: 2 mg Enoxaparin Sodium (Lovenox) 30 mg SC DAILY [facility] Last Admin: 05/21/18 10:40 Dose: 30 mg Epoetin Koby (Procrit) 8,000 unit SC TTS [facility] Last Admin: 05/24/18 10:12 Dose: 8,000 unit Ergocalciferol (Drisdol 50,000 Intl Units Cap) 1 cap PO Q7D [facility] Last Admin: 05/21/18 11:56 Dose: 1 cap Ferrous Gluconate (Fergon) 324 mg PO TID [facility] Last Admin: 05/24/18 18:32 Dose: 324 mg Hydroxyurea (Hydrea) 500 mg PO BID [facility] Last Admin: 05/15/18 10:00 Dose: 500 mg Ceftazidime/Avibactam 0.94 gm/ (Sodium Chloride) 100 mls @ 50 mls/hr IV Q12H [facility]; Protocol Last Admin: 05/24/18 18:31 Dose: 50 mls/hr Metronidazole (Flagyl) 500 mg in 100 mls @ 100 mls/hr IVPB Q8H [facility]; Protocol Last Admin: 05/24/18 16:37 Dose: 100 mls/hr Methylprednisolone (Solu-Medrol) 30 mg IV Q8H [facility] Last Admin: 05/24/18 21:10 Dose: 30 mg Pantoprazole Sodium (Protonix Ec Tab) 40 mg PO DAILY [facility] Last Admin: 05/24/18 10:12 Dose: 40 mg Sodium Bicarbonate (Sodium Bicarbonate Tab) 1,300 mg PO TID [facility] Last Admin: 05/24/18 18:32 Dose: 1,300 mg Tramadol HCl (Ultram) 25 mg NG TID PRN PRN Reason: Pain, severe (8-10) Last Admin: 05/22/18 07:47 Dose: 25 mg Verapamil HCl (Verapamil Inj) 2.5 mg IVP Q4H PRN PRN Reason: Heart rate Vitamin B Complex/Vit C/Folic Acid (Nephro-Charlie) 1 tab PO 0800 [facility] Last Admin: 05/24/18 08:11 Dose: 1 tab - Labs Labs: 05/24/18 03:58 05/24/18 03:58 PT 19.5 SECONDS (9.7-12.2) H 05/21/18 09:52 INR 1.8 05/21/18 09:52 APTT 34 SECONDS (21-34) 05/21/18 09:52
--- NOTE | 2018-05-24 22:32 | CP.PCM.PN ---
Subjective - Date & Time of Evaluation Date of Evaluation: 05/24/18 Time of Evaluation: 16:20 - Subjective Subjective: Pt seen and examined. Denies pain. Platelets is 16 this AM. Had Platelet transfusion yesterday with a brief rise. Discussed case with ICU team and family. Objective - Vital Signs/Intake and Output Vital Signs (last 24 hours): Temp Pulse Resp BP Pulse Ox 98.9 F 127 H 29 H 104/52 L 100 05/24/18 04:00 05/24/18 07:45 05/24/18 07:00 05/24/18 06:53 05/24/18 07:00 Intake and Output: 05/24/18 05/24/18 06:59 18:59 Intake Total 100 100 Output Total 760 100 Balance -660 0 - Medications Medications: Current Medications Acetaminophen (Tylenol 325mg Tab) 650 mg PO Q6 PRN PRN Reason: Fever >100.4 F Last Admin: 05/19/18 19:00 Dose: 650 mg Albuterol/Ipratropium (Duoneb 3 Mg/0.5 Mg (3 Ml) Ud) 3 ml INH RQ6 [facility] Last Admin: 05/24/18 07:44 Dose: Not Given Enoxaparin Sodium (Lovenox) 30 mg SC DAILY [facility] Last Admin: 05/21/18 10:40 Dose: 30 mg Epoetin Koby (Procrit) 8,000 unit SC TTS [facility] Last Admin: 05/22/18 13:46 Dose: 8,000 unit Ergocalciferol (Drisdol 50,000 Intl Units Cap) 1 cap PO Q7D [facility] Last Admin: 05/21/18 11:56 Dose: 1 cap Ferrous Gluconate (Fergon) 324 mg PO TID [facility] Last Admin: 05/23/18 17:41 Dose: 324 mg Furosemide (Lasix) 40 mg IVP DAILY [facility] Last Admin: 05/23/18 14:42 Dose: 40 mg Hydroxyurea (Hydrea) 500 mg PO BID [facility] Last Admin: 05/15/18 10:00 Dose: 500 mg Ceftazidime/Avibactam 0.94 gm/ (Sodium Chloride) 100 mls @ 50 mls/hr IV Q12H [facility]; Protocol Last Admin: 05/24/18 05:54 Dose: 50 mls/hr Metronidazole (Flagyl) 500 mg in 100 mls @ 100 mls/hr IVPB Q8H [facility]; Protocol Last Admin: 05/24/18 08:11 Dose: 100 mls/hr Pantoprazole Sodium (Protonix Ec Tab) 40 mg PO DAILY [facility] Last Admin: 05/23/18 09:49 Dose: 40 mg Sodium Bicarbonate (Sodium Bicarbonate Tab) 1,300 mg PO BID [facility] Last Admin: 05/23/18 17:42 Dose: 1,300 mg Tramadol HCl (Ultram) 25 mg NG TID PRN PRN Reason: Pain, severe (8-10) Last Admin: 05/22/18 07:47 Dose: 25 mg Verapamil HCl (Verapamil Inj) 2.5 mg IVP Q4H PRN PRN Reason: Heart rate Vitamin B Complex/Vit C/Folic Acid (Nephro-Charlie) 1 tab PO 0800 [facility] Last Admin: 05/24/18 08:11 Dose: 1 tab - Labs Labs: 05/24/18 03:58 05/24/18 03:58 PT 19.5 SECONDS (9.7-12.2) H 05/21/18 09:52 INR 1.8 05/21/18 09:52 APTT 34 SECONDS (21-34) 05/21/18 09:52 - Constitutional Appears: Non-toxic, No Acute Distress (on BIPAP), Chronically Ill - Head Exam Head Exam: ATRAUMATIC, NORMOCEPHALIC - Eye Exam Eye Exam: EOMI, PERRL - Respiratory Exam Respiratory Exam: NORMAL BREATHING PATTERN. absent: Respiratory Distress (on BIPAP) - Cardiovascular Exam Cardiovascular Exam: Tachycardia, +S1, +S2 - GI/Abdominal Exam GI & Abdominal Exam: Soft, Organomegaly (spleen). absent: Distended, Firm, Guarding, Rigid, Tenderness, Rebound - Extremities Exam Extremities Exam: Pedal Edema (trace). absent: Calf Tenderness - Back Exam Back Exam: absent: CVA tenderness (L), CVA tenderness (R) - Neurological Exam Neurological Exam: Alert, Awake - Skin Skin Exam: Dry, Warm Assessment and Plan - Assessment and Plan (Free Text) Assessment: 67F with splenomegaly, thrombocytopenia, and anemia s/p IR embolization Plan: Condition not improving at this time. Patient DNR/DNI Objective - Vital Signs/Intake and Output Vital Signs (last 24 hours): Temp Pulse Resp BP Pulse Ox 97.2 F L 108 H 36 H 135/75 92 L 05/24/18 16:00 05/24/18 19:23 05/24/18 19:23 05/24/18 19:23 05/24/18 19:23 Intake and Output: 05/24/18 05/25/18 18:59 06:59 Intake Total 791 175 Output Total 700 50 Balance 91 125 - Medications Medications: Current Medications Acetaminophen (Tylenol 325mg Tab) 650 mg PO Q6 PRN PRN Reason: Fever >100.4 F Last Admin: 05/19/18 19:00 Dose: 650 mg Albuterol/Ipratropium (Duoneb 3 Mg/0.5 Mg (3 Ml) Ud) 3 ml INH RQ6 [facility] Last Admin: 05/24/18 20:04 Dose: Not Given Bumetanide (Bumex) 2 mg PO BID [facility] Last Admin: 05/24/18 19:03 Dose: 2 mg Enoxaparin Sodium (Lovenox) 30 mg SC DAILY [facility] Last Admin: 05/21/18 10:40 Dose: 30 mg Epoetin Koby (Procrit) 8,000 unit SC TTS [facility] Last Admin: 05/24/18 10:12 Dose: 8,000 unit Ergocalciferol (Drisdol 50,000 Intl Units Cap) 1 cap PO Q7D [facility] Last Admin: 05/21/18 11:56 Dose: 1 cap Ferrous Gluconate (Fergon) 324 mg PO TID [facility] Last Admin: 05/24/18 18:32 Dose: 324 mg Hydroxyurea (Hydrea) 500 mg PO BID [facility] Last Admin: 05/15/18 10:00 Dose: 500 mg Ceftazidime/Avibactam 0.94 gm/ (Sodium Chloride) 100 mls @ 50 mls/hr IV Q12H [facility]; Protocol Last Admin: 05/24/18 18:31 Dose: 50 mls/hr Metronidazole (Flagyl) 500 mg in 100 mls @ 100 mls/hr IVPB Q8H [facility]; Protocol Last Admin: 05/24/18 16:37 Dose: 100 mls/hr Methylprednisolone (Solu-Medrol) 30 mg IV Q8H [facility] Last Admin: 05/24/18 21:10 Dose: 30 mg Pantoprazole Sodium (Protonix Ec Tab) 40 mg PO DAILY [facility] Last Admin: 05/24/18 10:12 Dose: 40 mg Sodium Bicarbonate (Sodium Bicarbonate Tab) 1,300 mg PO TID [facility] Last Admin: 05/24/18 18:32 Dose: 1,300 mg Tramadol HCl (Ultram) 25 mg NG TID PRN PRN Reason: Pain, severe (8-10) Last Admin: 05/22/18 07:47 Dose: 25 mg Verapamil HCl (Verapamil Inj) 2.5 mg IVP Q4H PRN PRN Reason: Heart rate Vitamin B Complex/Vit C/Folic Acid (Nephro-Charlie) 1 tab PO 0800 [facility] Last Admin: 05/24/18 08:11 Dose: 1 tab - Labs Labs: 05/24/18 03:58 05/24/18 03:58 PT 19.5 SECONDS (9.7-12.2) H 05/21/18 09:52 INR 1.8 05/21/18 09:52 APTT 34 SECONDS (21-34) 05/21/18 09:52
[2018-05-25] MEDS: MethylPREDNISolone 40 mg Vial IV SCH ×3 (04:10→21:00)
[2018-05-25] MEDS: Albuterol-Ipratrop 3 mg / 0.5 (3 ml) UD INH SCH ×3 (06:00→12:59)
[2018-05-25 06:43] LABS: BASO # 0.2 K/uL (0.0-0.2); BASO % 0.5 % (0.0-2.0); EOS % 0.1 % (0.0-4.0); LYMPH # 0.4 K/uL (1.0-4.3); LYMPH % 1.3 % (20.0-40.0); MEAN CELL VOLUME 91.3 fL (81.0-99.0); MEAN CORPUSCULAR HGB CONC 31.8 g/dL (33.0-37.0); MEAN PLATELET VOLUME 8.4 fL (7.2-11.7); MONO % 3.5 % (0.0-10.0); NEUT # 27.2 K/uL (1.8-7.0); NEUT % 94.6 % (50.0-75.0); NRBC % 9.6 % (0.0-2.0); RED CELL DISTRIBUTION WIDTH 19.8 % (11.5-14.5); WHITE BLOOD COUNT 28.8 K/uL (4.8-10.8)
[2018-05-25 06:57] LABS: PLATELET COUNT 21 K/uL (130-400)
[2018-05-25 07:04] LABS: ALB/GLOB RATIO 0.9 (1.0-2.1); ALBUMIN 2.6 g/dL (3.5-5.0); CALCIUM 8.8 mg/dl (8.6-10.4)
[2018-05-25] MEDS: Multivitamin Vitamin B Complex (Nephro-Vite) Tab PO SCH ×2 (07:47→08:00)
[2018-05-25] MEDS: metroNIDAZOLE IV 500 mg/100 ml 500 MG/100 ML BAG IVPB SCH ×3 (07:47→23:43)
[2018-05-25 08:43] LABS: BANDS 20 % (0-2); LYMPHOCYTE 2 % (20-40); METAMYELOCYTE 6 % (0-0); MONOCYTE 10 % (0-10); MYELOCYTE 1 % (0-0); NEUTROPHIL 61 % (50-75); NUCLEATED RED BLOOD CELL 12 % (0-0); PLATELET ESTIMATE MARKEDLY DECREASED (NORMAL); TOTAL CELLS COUNTED 100
[2018-05-25 08:44] LABS: BURR CELLS SLIGHT; POIKILOCYTOSIS SLIGHT
[2018-05-25 08:46] LABS: OVALOCYTES SLIGHT
[2018-05-25 08:47] LABS: GIANT PLATELETS PRESENT; HYPOCHROMIC SLIGHT; LARGE PLATELETS PRESENT; POLYCHROMIC SLIGHT
[2018-05-25 08:48] LABS: ANISOCYTOSIS MARKED; SCHISTOCYTES SLIGHT
[2018-05-25 08:49] LABS: TARGET CELLS SLIGHT
[2018-05-25] MEDS: Pantoprazole 40 mg EC Tab PO SCH (10:45)
--- NOTE | 2018-05-25 10:59 | CP.PCM.PN ---
Subjective - Date & Time of Evaluation Date of Evaluation: 05/25/18 Time of Evaluation: 10:55 - Subjective Subjective: Nephrology Consultation Note: Assessment: critical Acute Kidney Injury (N17.9) likely due to ATN/sepsis with UTI, low BP, pre-renal state Metabolic acidosis, Hyponatremia Hypertensive Chronic Kidney Disease (I12.9) Chronic Kidney Disease (N18.3) Stage 3 with ? 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 [employer] could likely help w/ volume overload but given concerns family re: infection/bleeding w/ cathether and pt not wanting hd still holding. Discussed w/ daugther at bedside that if respiratory status worsens would attempt to try to convince for HD. Maintain hemodynamics stable. Avoid hypotension. Patient not on ACEI/ARB due to recent SOFIA Monitor Input/Output, daily weights and renal function with basic metabolic panel continue bicarb to help w/ mobilizing fluids - continue bumex w/ albumin anemia management as per heme: started iron and MVI. PRBC 2 unit 05/21/18. added epogen as well as d/w heme Dose meds/antibiotics for reduced GFR. Avoid fleets enema/magnesium based laxatives. Avoid nephrotoxins/NSAIDs/ iodinated contrast (unless needed emergently) Glycemic control Further work up/management as per primary team S: seen and examined feels fatigued but no n/v. Physical Examination: General Appearance: comfortable, in no acute respiratory distress, co-operative . ill appearing Vitals reviewed and noted as below Head; Atraumatic, normocephalic ENT: no ulcers no thrush. Tongue is midline. Oropharynx: no rash or ulcers. EYES: Pupils are equal, round and reactive to light accommodation. Eye muscles and extraocular movement intact. Sclera is anicteric. Neck; supple no lymphadenopathy, no thyromegaly or bruit Lungs: Increased respiratory rate/effort. Breath sounds bilateral equal and few rales + Heart: Increased rate. s1s2 normal. No rub or gallop. Extremities: no edema. No varicose veins Neurological: Patient is sleeping Skin: Warm and dry. Normal turgor. No rash. Palpitation: Normal elasticity for age Abdomen: Abdomen is soft. Bowel sounds +. There is improved abdominal tenderness without guarding no rigidity no organomegaly Psych: limited insight and normal affect/mood MSK: no joint tenderness or swelling. Digits and nails normal, no deformity : kidney or bladder not palpable Labs/imaging reviewed. Past medical history, past surgical history, family history, social history, allergy reviewed and noted as below Family hx: no hx of CKD. Rest non-contributory echo moderate pHTN, normal LVEF UA 2+ protein 3+ blood TRACEY and Hep B/C neg Fena 0.5% Objective - Vital Signs/Intake and Output Vital Signs (last 24 hours): Temp Pulse Resp BP Pulse Ox 97 F L 87 18 135/81 91 L 05/25/18 08:00 05/25/18 08:23 05/25/18 08:23 05/25/18 08:23 05/25/18 08:23 Intake and Output: 05/25/18 05/25/18 06:59 18:59 Intake Total 475 150 Output Total 555 100 Balance -80 50 - Medications Medications: Current Medications Acetaminophen (Tylenol 325mg Tab) 650 mg PO Q6 PRN PRN Reason: Fever >100.4 F Last Admin: 05/19/18 19:00 Dose: 650 mg Albuterol/Ipratropium (Duoneb 3 Mg/0.5 Mg (3 Ml) Ud) 3 ml INH RQ6 [facility] Last Admin: 05/25/18 08:18 Dose: Not Given Bumetanide (Bumex) 2 mg PO BID [facility] Last Admin: 05/25/18 10:45 Dose: 2 mg Enoxaparin Sodium (Lovenox) 30 mg SC DAILY [facility] Last Admin: 05/21/18 10:40 Dose: 30 mg Epoetin Koby (Procrit) 8,000 unit SC TTS [facility] Last Admin: 05/24/18 10:12 Dose: 8,000 unit Ergocalciferol (Drisdol 50,000 Intl Units Cap) 1 cap PO Q7D [facility] Last Admin: 05/21/18 11:56 Dose: 1 cap Ferrous Gluconate (Fergon) 324 mg PO TID [facility] Last Admin: 05/25/18 10:44 Dose: 324 mg Hydroxyurea (Hydrea) 500 mg PO BID [facility] Last Admin: 05/15/18 10:00 Dose: 500 mg Ceftazidime/Avibactam 0.94 gm/ (Sodium Chloride) 100 mls @ 50 mls/hr IV Q12H [facility]; Protocol Last Admin: 05/25/18 05:30 Dose: 50 mls/hr Metronidazole (Flagyl) 500 mg in 100 mls @ 100 mls/hr IVPB Q8H [facility]; Protocol Last Admin: 05/25/18 07:47 Dose: 100 mls/hr Methylprednisolone (Solu-Medrol) 30 mg IV Q8H [facility] Last Admin: 05/25/18 04:10 Dose: 30 mg Pantoprazole Sodium (Protonix Ec Tab) 40 mg PO DAILY [facility] Last Admin: 05/25/18 10:45 Dose: 40 mg Sodium Bicarbonate (Sodium Bicarbonate Tab) 1,300 mg PO TID [facility] Last Admin: 05/25/18 10:45 Dose: 1,300 mg Tramadol HCl (Ultram) 25 mg NG TID PRN PRN Reason: Pain, severe (8-10) Last Admin: 05/22/18 07:47 Dose: 25 mg Verapamil HCl (Verapamil Inj) 2.5 mg IVP Q4H PRN PRN Reason: Heart rate Vitamin B Complex/Vit C/Folic Acid (Nephro-Charlie) 1 tab PO 0800 [facility] Last Admin: 05/25/18 07:47 Dose: 1 tab - Labs Labs: 05/25/18 06:35 05/25/18 06:35 PT 19.5 SECONDS (9.7-12.2) H 05/21/18 09:52 INR 1.8 05/21/18 09:52 APTT 34 SECONDS (21-34) 05/21/18 09:52
--- NOTE | 2018-05-25 13:23 | CP.CCUPN ---
CCU Subjective - Physician Review Events Since Last Encounter (Free Text): 05/25/18 13:23 patient refusing bipap. CCU Objective - Vital Signs / Intake & Output Vital Signs (Last 4 hours): Vital Signs Pulse Resp BP Pulse Ox 05/25/18 12:00 95 H 19 94 L 05/25/18 11:23 97 H 32 H 130/77 90 L 05/25/18 10:23 74 18 140/81 91 L 05/25/18 10:00 93 H 23 92 L 05/25/18 09:23 97 H 26 H 140/79 91 L Intake and Output (Last 8hrs): Intake & Output 05/24/18 05/25/18 05/25/18 22:59 06:59 14:59 Intake Total 550 175 450 Output Total 385 370 280 Balance 165 -195 170 Weight 195 lb Intake: Intake, IV Amount 400 175 150 Right Distal Port PICC 200 25 Right Proximal Port PICC 200 150 150 Oral 150 300 Output: Urine 385 370 280 Urethral (Addison) 385 370 280 Other: # Bowel Movements 1 1 - Physical Exam Head: Positive for: Atraumatic, Normocephalic Pupils: Positive for: PERRL Extroacular Muscles: Positive for: EOMI Conjunctiva: Positive for: Normal Ears: Positive for: Normal Mouth: Positive for: Moist Mucous Membranes Nose (External): Positive for: Atraumatic Neck: Positive for: Normal Range of Motion Respiratory/Chest: Positive for: Good Air Exchange, Rhonchi. Negative for: Respiratory Distress Cardiovascular: Positive for: Regular Rate and Rhythm, Normal S1, S2, Tachycardic Abdomen: Positive for: Tenderness (diffuse ), Distention. Negative for: Peritoneal Signs, Rebound Upper Extremity: Positive for: Normal Inspection. Negative for: Cyanosis, Edema Lower Extremity: Positive for: Normal Inspection, Edema. Negative for: CALF TENDERNESS Neurological: Positive for: GCS=15, CN II-XII Intact, Speech Normal Skin: Positive for: Dry, Normal Color. Negative for: Rashes Psychiatric: Positive for: Alert, Oriented x 3, Anxious - Medications Active Medications: Active Medications Generic Name Dose Route Start Last Admin Trade Name Freq PRN Reason Stop Dose Admin Acetaminophen 650 mg 05/15/18 08:56 05/19/18 19:00 Tylenol 325mg Tab PO 650 mg Q6 PRN Administration Fever >100.4 F Albuterol/Ipratropium 3 ml 05/15/18 12:00 05/25/18 12:59 Duoneb 3 Mg/0.5 Mg (3 Ml) Ud INH Not Given RQ6 NAN Bumetanide 2 mg 05/24/18 18:00 05/25/18 10:45 Bumex PO 2 mg BID NAN Administration Enoxaparin Sodium 30 mg 05/15/18 10:00 05/21/18 10:40 Lovenox SC 30 mg DAILY NAN Administration Epoetin Koby 8,000 unit 05/22/18 10:00 05/24/18 10:12 Procrit SC 8,000 unit TTS NAN Administration Ergocalciferol 1 cap 05/21/18 11:00 05/21/18 11:56 Drisdol 50,000 Intl Units Cap PO 1 cap Q7D NAN Administration Ferrous Gluconate 324 mg 05/21/18 14:00 05/25/18 10:44 Fergon PO 324 mg TID NAN Administration Hydroxyurea 500 mg 05/15/18 10:00 05/15/18 10:00 Hydrea PO 500 mg BID NAN Administration Ceftazidime/Avibactam 0.94 gm/ 100 mls @ 50 mls/hr 05/21/18 06:00 05/25/18 05:30 Sodium Chloride IV 50 mls/hr Q12H NAN Administration Protocol Metronidazole 500 mg in 100 mls @ 100 mls/hr 05/24/18 16:00 05/25/18 07:47 Flagyl IVPB 100 mls/hr Q8H NAN Administration Protocol Methylprednisolone 30 mg 05/24/18 12:15 05/25/18 11:56 Solu-Medrol IV 30 mg Q8H NAN Administration Pantoprazole Sodium 40 mg 05/23/18 10:00 05/25/18 10:45 Protonix Ec Tab PO 40 mg DAILY NAN Administration Sodium Bicarbonate 1,300 mg 05/24/18 14:00 05/25/18 10:45 Sodium Bicarbonate Tab PO 1,300 mg TID NAN Administration Tramadol HCl 25 mg 05/22/18 07:16 05/22/18 07:47 Ultram NG 25 mg TID PRN Administration Pain, severe (8-10) Verapamil HCl 2.5 mg 05/24/18 07:25 Verapamil Inj IVP Q4H PRN Heart rate Vitamin B Complex/Vit C/Folic Acid 1 tab 05/22/18 08:00 05/25/18 07:47 Nephro-Charlie PO 1 tab 0800 NAN Administration - Patient Studies Lab Studies: Lab Studies 05/25/18 05/25/18 05/25/18 Range/Units 07:53 06:35 06:35 WBC 28.8 H D (4.8-10.8) K/uL RBC 3.80 (3.80-5.20) Mil/uL Hgb 11.0 (11.0-16.0) g/dL Hct 34.7 (34.0-47.0) % MCV 91.3 (81.0-99.0) fL MCH 29.0 (27.0-31.0) pg MCHC 31.8 L (33.0-37.0) g/dL RDW 19.8 H (11.5-14.5) % Plt Count 21 L* (130-400) K/uL MPV 8.4 (7.2-11.7) fL Neut % (Auto) 94.6 H (50.0-75.0) % Lymph % (Auto) 1.3 L (20.0-40.0) % Emery % (Auto) 3.5 (0.0-10.0) % Eos % (Auto) 0.1 (0.0-4.0) % Baso % (Auto) 0.5 (0.0-2.0) % Neut # (Auto) 27.2 H (1.8-7.0) K/uL Lymph # (Auto) 0.4 L (1.0-4.3) K/uL Emery # (Auto) 1.0 H (0.0-0.8) K/uL Eos # (Auto) 0.0 (0.0-0.7) K/uL Baso # (Auto) 0.2 (0.0-0.2) K/uL Neutrophils % (Manual) 61 (50-75) % Band Neutrophils % 20 H* (0-2) % Lymphocytes % (Manual) 2 L (20-40) % Monocytes % (Manual) 10 (0-10) % Metamyelocytes % 6 H (0-0) % Myelocytes % 1 H (0-0) % Nucleated RBC % 12 H (0-0) % Platelet Estimate Markedly decreased L (NORMAL) Large Platelets Present Giant Platelets Present Polychromasia Slight Hypochromasia (manual) Slight Poikilocytosis (manual Slight Anisocytosis (manual) Marked Macrocytosis (manual) Moderate Target Cells Slight Ovalocytes Slight Fatmata Cells Slight Schistocytes Slight Fibrinogen 297 D (200-400) mg/dL Sodium 140 (132-148) mmol/L Potassium 4.3 (3.6-5.2) mmol/L Chloride 108 H (98-107) mmol/L Carbon Dioxide 19 L (22-30) mmol/L Anion Gap 17 (10-20) BUN 119 H* (7-17) mg/dL Creatinine 2.5 H (0.7-1.2) mg/dL Est GFR ( Amer) 23 Est GFR (Non-Af Amer) 19 Random Glucose 153 H (65-105) mg/dL Calcium 8.8 (8.6-10.4) mg/dl Phosphorus 5.2 H (2.5-4.5) mg/dL Magnesium 2.3 (1.6-2.3) mg/dL Total Bilirubin 0.8 (0.2-1.3) mg/dL AST 13 L D (14-36) U/L ALT 23 (9-52) U/L Alkaline Phosphatase 71 (38-126) U/L Total Protein 5.5 L (6.3-8.3) g/dL Albumin 2.6 L (3.5-5.0) g/dL Globulin 2.8 (2.2-3.9) gm/dL Albumin/Globulin Ratio 0.9 L (1.0-2.1) Stool Occult Blood (NEGATIVE) ANCA Screen (NEGATIVE) Proteinase 3 (PR3) (<1.0) AI Myeloperoxidase Ab (<1.0) AI 05/24/18 05/21/18 Range/Units 17:08 08:13 WBC (4.8-10.8) K/uL RBC (3.80-5.20) Mil/uL Hgb (11.0-16.0) g/dL Hct (34.0-47.0) % MCV (81.0-99.0) fL MCH (27.0-31.0) pg MCHC (33.0-37.0) g/dL RDW (11.5-14.5) % Plt Count (130-400) K/uL MPV (7.2-11.7) fL Neut % (Auto) (50.0-75.0) % Lymph % (Auto) (20.0-40.0) % Emery % (Auto) (0.0-10.0) % Eos % (Auto) (0.0-4.0) % Baso % (Auto) (0.0-2.0) % Neut # (Auto) (1.8-7.0) K/uL Lymph # (Auto) (1.0-4.3) K/uL Emery # (Auto) (0.0-0.8) K/uL Eos # (Auto) (0.0-0.7) K/uL Baso # (Auto) (0.0-0.2) K/uL Neutrophils % (Manual) (50-75) % Band Neutrophils % (0-2) % Lymphocytes % (Manual) (20-40) % Monocytes % (Manual) (0-10) % Metamyelocytes % (0-0) % Myelocytes % (0-0) % Nucleated RBC % (0-0) % Platelet Estimate (NORMAL) Large Platelets Giant Platelets Polychromasia Hypochromasia (manual) Poikilocytosis (manual Anisocytosis (manual) Macrocytosis (manual) Target Cells Ovalocytes Fatmata Cells Schistocytes Fibrinogen (200-400) mg/dL Sodium (132-148) mmol/L Potassium (3.6-5.2) mmol/L Chloride (98-107) mmol/L Carbon Dioxide (22-30) mmol/L Anion Gap (10-20) BUN (7-17) mg/dL Creatinine (0.7-1.2) mg/dL Est GFR ( Amer) Est GFR (Non-Af Amer) Random Glucose (65-105) mg/dL Calcium (8.6-10.4) mg/dl Phosphorus (2.5-4.5) mg/dL Magnesium (1.6-2.3) mg/dL Total Bilirubin (0.2-1.3) mg/dL AST (14-36) U/L ALT (9-52) U/L Alkaline Phosphatase (38-126) U/L Total Protein (6.3-8.3) g/dL Albumin (3.5-5.0) g/dL Globulin (2.2-3.9) gm/dL Albumin/Globulin Ratio (1.0-2.1) Stool Occult Blood Negative (NEGATIVE) ANCA Screen Negative (NEGATIVE) Proteinase 3 (PR3) <1.0 (<1.0) AI Myeloperoxidase Ab <1.0 (<1.0) AI Laboratory Results - last 24 hr 05/21/18 05/24/18 05/25/18 08:13 17:08 06:35 WBC 28.8 H D RBC 3.80 Hgb 11.0 Hct 34.7 MCV 91.3 MCH 29.0 MCHC 31.8 L RDW 19.8 H Plt Count 21 L* MPV 8.4 Neut % (Auto) 94.6 H Lymph % (Auto) 1.3 L Emery % (Auto) 3.5 Eos % (Auto) 0.1 Baso % (Auto) 0.5 Neut # (Auto) 27.2 H Lymph # (Auto) 0.4 L Emery # (Auto) 1.0 H Eos # (Auto) 0.0 Baso # (Auto) 0.2 Neutrophils % (Manual) 61 Band Neutrophils % 20 H* Lymphocytes % (Manual) 2 L Monocytes % (Manual) 10 Metamyelocytes % 6 H Myelocytes % 1 H Nucleated RBC % 12 H Platelet Estimate Markedly decreased L Large Platelets Present Giant Platelets Present Polychromasia Slight Hypochromasia (manual) Slight Poikilocytosis (manual Slight Anisocytosis (manual) Marked Macrocytosis (manual) Moderate Target Cells Slight Ovalocytes Slight [place] Cells Slight Schistocytes Slight Fibrinogen Sodium Potassium Chloride Carbon Dioxide Anion Gap BUN Creatinine Est GFR ( Amer) Est GFR (Non-Af Amer) Random Glucose Calcium Phosphorus Magnesium Total Bilirubin AST ALT Alkaline Phosphatase Total Protein Albumin Globulin Albumin/Globulin Ratio Stool Occult Blood Negative ANCA Screen Negative Proteinase 3 (PR3) <1.0 Myeloperoxidase Ab <1.0 05/25/18 05/25/18 06:35 07:53 WBC RBC Hgb Hct MCV MCH MCHC RDW Plt Count MPV Neut % (Auto) Lymph % (Auto) Emery % (Auto) Eos % (Auto) Baso % (Auto) Neut # (Auto) Lymph # (Auto) Emery # (Auto) Eos # (Auto) Baso # (Auto) Neutrophils % (Manual) Band Neutrophils % Lymphocytes % (Manual) Monocytes % (Manual) Metamyelocytes % Myelocytes % Nucleated RBC % Platelet Estimate Large Platelets Giant Platelets Polychromasia Hypochromasia (manual) Poikilocytosis (manual Anisocytosis (manual) Macrocytosis (manual) Target Cells Ovalocytes Fatmata Cells Schistocytes Fibrinogen 297 D Sodium 140 Potassium 4.3 Chloride 108 H Carbon Dioxide 19 L Anion Gap 17 BUN 119 H* Creatinine 2.5 H Est GFR ( Amer) 23 Est GFR (Non-Af Amer) 19 Random Glucose 153 H Calcium 8.8 Phosphorus 5.2 H Magnesium 2.3 Total Bilirubin 0.8 AST 13 L D ALT 23 Alkaline Phosphatase 71 Total Protein 5.5 L Albumin 2.6 L Globulin 2.8 Albumin/Globulin Ratio 0.9 L Stool Occult Blood ANCA Screen Proteinase 3 (PR3) Myeloperoxidase Ab Review of Systems - Review of Systems All systems: reviewed and no additional remarkable complaints except - Respiratory Respiratory: Wheezing Critical Care Progress Note - Nutrition Nutrition: Nutrition Category Date Time Status Mechanically altered [Dysphagia/Modified Consistency Diets 05/22/18 Lunch Active Diet] [DIET] Assessment/Plan (1) Renal insufficiency Assessment and plan: 67 year old female with a PMHx of myelofibrosis, HTN, renal insufficiency admitted with fever and UTI. 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 On previous admission patient had splenic embolization. Neuro: - AAO x3 Pulm: - nasal cannula as tolerated - maintain SPO2 > 92% - Duonebs 3 ml INH RQ6 CV: - currently hemodynamically stable - Eliquis held 2/ acute hemorrhagic process emanating from the spleen - ECHO 05/21 shows LVEF 62%, small pericardial effusion inferior to LV, mild AR, paradoxical septal motion GI: - s/p IR splenic artery embolization, now with inflammatory infarcting spleen. Morbidity is now high. family does not want splenectomy - Pepcid 20mg PO daily - advanced to soft diet Renal: - SOFIA, oliguria Family does not want dialysis - Nephrology Dr. Wylie consulted. Recs appreciated. ID: - ID Dr. Jackson consulted. Recs appreciated. - Avycaz 0.94 g IV q12h (started 05/15) for MDR Klebsiella Heme/Onc - Hx of myelofibrosis with chronic leukocytosis - Dr. Mcbride consulted. Recs appreciated. - Holding Hydrea, Jakafi - Ferrous gluconate 324 mg PO TID Endo: - Maintain euglycemia PPX: Pepcid 20 mg PO daily, Lovenox 30 mg SC daily Critical Care Time spent 35 minutes Multi-disciplinary rounds were performed with house staff, nursing, speech therapy, respiratory therapy, pharmacy and nutrition with integrated input from the primary team/attending and other consulting services. The documented time is cumulative and includes review of patient data/exams/labs/chart review and examination of the patient on rounds and throughout the day; time is exclusive of any procedures or teaching time. Current Visit: Yes Status: Acute
--- NOTE | 2018-05-25 14:40 | CP.PCM.PN ---
Subjective - Date & Time of Evaluation Date of Evaluation: 05/25/18 Time of Evaluation: 11:00 - Subjective Subjective: clinically same Objective - Vital Signs/Intake and Output Vital Signs (last 24 hours): Temp Pulse Resp BP Pulse Ox 97 F L 96 H 32 H 148/89 91 L 05/25/18 08:00 05/25/18 13:00 05/25/18 13:00 05/25/18 13:23 05/25/18 13:00 Intake and Output: 05/25/18 05/25/18 06:59 18:59 Intake Total 475 450 Output Total 555 280 Balance -80 170 - Medications Medications: Current Medications Acetaminophen (Tylenol 325mg Tab) 650 mg PO Q6 PRN PRN Reason: Fever >100.4 F Last Admin: 05/19/18 19:00 Dose: 650 mg Albuterol/Ipratropium (Duoneb 3 Mg/0.5 Mg (3 Ml) Ud) 3 ml INH RQ6 [facility] Last Admin: 05/25/18 12:59 Dose: Not Given Bumetanide (Bumex) 2 mg PO BID [facility] Last Admin: 05/25/18 10:45 Dose: 2 mg Enoxaparin Sodium (Lovenox) 30 mg SC DAILY [facility] Last Admin: 05/21/18 10:40 Dose: 30 mg Epoetin Koby (Procrit) 8,000 unit SC TTS [facility] Last Admin: 05/24/18 10:12 Dose: 8,000 unit Ergocalciferol (Drisdol 50,000 Intl Units Cap) 1 cap PO Q7D [facility] Last Admin: 05/21/18 11:56 Dose: 1 cap Ferrous Gluconate (Fergon) 324 mg PO TID [facility] Last Admin: 05/25/18 13:46 Dose: 324 mg Hydroxyurea (Hydrea) 500 mg PO BID [facility] Last Admin: 05/15/18 10:00 Dose: 500 mg Ceftazidime/Avibactam 0.94 gm/ (Sodium Chloride) 100 mls @ 50 mls/hr IV Q12H [facility]; Protocol Last Admin: 05/25/18 05:30 Dose: 50 mls/hr Metronidazole (Flagyl) 500 mg in 100 mls @ 100 mls/hr IVPB Q8H [facility]; Protocol Last Admin: 05/25/18 07:47 Dose: 100 mls/hr Methylprednisolone (Solu-Medrol) 30 mg IV Q8H [facility] Last Admin: 05/25/18 11:56 Dose: 30 mg Pantoprazole Sodium (Protonix Ec Tab) 40 mg PO DAILY [facility] Last Admin: 05/25/18 10:45 Dose: 40 mg Sodium Bicarbonate (Sodium Bicarbonate Tab) 1,300 mg PO TID [facility] Last Admin: 05/25/18 13:49 Dose: 1,300 mg Tramadol HCl (Ultram) 25 mg NG TID PRN PRN Reason: Pain, severe (8-10) Last Admin: 05/22/18 07:47 Dose: 25 mg Verapamil HCl (Verapamil Inj) 2.5 mg IVP Q4H PRN PRN Reason: Heart rate Vitamin B Complex/Vit C/Folic Acid (Nephro-Charlie) 1 tab PO 0800 [facility] Last Admin: 05/25/18 07:47 Dose: 1 tab - Labs Labs: 05/25/18 06:35 05/25/18 06:35 PT 19.5 SECONDS (9.7-12.2) H 05/21/18 09:52 INR 1.8 05/21/18 09:52 APTT 34 SECONDS (21-34) 05/21/18 09:52 - Constitutional Appears: Well - Head Exam Head Exam: ATRAUMATIC, NORMAL INSPECTION, NORMOCEPHALIC - Eye Exam Eye Exam: EOMI, Normal appearance, PERRL Pupil Exam: NORMAL ACCOMODATION, PERRL - ENT Exam ENT Exam: Mucous Membranes Moist, Normal Exam - Neck Exam Neck Exam: Full ROM, Normal Inspection. absent: Lymphadenopathy - Respiratory Exam Respiratory Exam: Decreased Breath Sounds - Cardiovascular Exam Cardiovascular Exam: REGULAR RHYTHM, +S1, +S2 - GI/Abdominal Exam GI & Abdominal Exam: Soft, Diminished Bowel Sounds - Rectal Exam Rectal Exam: Deferred Assessment and Plan (1) Abdominal pain Status: Acute (2) Anemia Status: Acute (3) Atrial fibrillation, new onset Status: Acute (4) CHF (congestive heart failure) Status: Acute (5) DVT (deep venous thrombosis) Status: Acute (6) Elevated brain natriuretic peptide (BNP) level Status: Acute (7) Hepatosplenomegaly Status: Acute (8) Hydronephrosis, right Status: Acute (9) Leucocytosis Status: Acute (10) Myelofibrosis Status: Acute (11) Portal vein thrombosis Status: Acute (12) Prophylactic measure Status: Acute (13) Pyelonephritis Status: Acute (14) Pyelonephritis due to Escherichia coli Status: Acute (15) Renal insufficiency Status: Acute (16) Spleen hematoma Status: Acute (17) Splenic hemorrhage Status: Acute (18) Thrombocytopenia Status: Acute (19) UTI (urinary tract infection) Status: Acute (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
--- NOTE | 2018-05-25 20:13 | CP.PCM.PN ---
Subjective - Date & Time of Evaluation Date of Evaluation: 05/25/18 Time of Evaluation: 16:00 - Subjective Subjective: No new Cardiac events noted Physical Examination - Constitutional Appears: Non-toxic, No Acute Distress (on BIPAP), Chronically Ill - Head Exam Head Exam: ATRAUMATIC, NORMOCEPHALIC - Eye Exam Eye Exam: EOMI, PERRL - Respiratory Exam Respiratory Exam: NORMAL BREATHING PATTERN. absent: Respiratory Distress (on BIPAP) - Cardiovascular Exam Cardiovascular Exam: Tachycardia, +S1, +S2 - GI/Abdominal Exam GI & Abdominal Exam: Soft, Organomegaly (spleen). absent: Distended, Firm, Guarding, Rigid, Tenderness, Rebound - Extremities Exam Extremities Exam: Pedal Edema (trace). absent: Calf Tenderness - Back Exam Back Exam: absent: CVA tenderness (L), CVA tenderness (R) - Neurological Exam Neurological Exam: Alert, Awake - Skin Skin Exam: Dry, Warm Assessment and Plan - Assessment and Plan (Free Text) Assessment: 67F with splenomegaly, thrombocytopenia, and anemia s/p IR embolization Plan: Conservative medical management with comfort care Patient DNR/DNI Objective - Vital Signs/Intake and Output Vital Signs (last 24 hours): Temp Pulse Resp BP Pulse Ox 97.1 F L 92 H 21 142/82 92 L 05/25/18 16:00 05/25/18 19:23 05/25/18 19:23 05/25/18 19:23 05/25/18 19:23 Intake and Output: 05/25/18 05/26/18 18:59 06:59 Intake Total 720 50 Output Total 595 40 Balance 125 10 - Medications Medications: Current Medications Acetaminophen (Tylenol 325mg Tab) 650 mg PO Q6 PRN PRN Reason: Fever >100.4 F Last Admin: 05/19/18 19:00 Dose: 650 mg Albuterol/Ipratropium (Duoneb 3 Mg/0.5 Mg (3 Ml) Ud) 3 ml INH RQ6 [facility] Last Admin: 05/25/18 12:59 Dose: Not Given Bumetanide (Bumex) 2 mg PO BID [facility] Last Admin: 05/25/18 17:38 Dose: 2 mg Enoxaparin Sodium (Lovenox) 30 mg SC DAILY [facility] Last Admin: 05/21/18 10:40 Dose: 30 mg Epoetin Koby (Procrit) 8,000 unit SC TTS [facility] Last Admin: 05/24/18 10:12 Dose: 8,000 unit Ergocalciferol (Drisdol 50,000 Intl Units Cap) 1 cap PO Q7D [facility] Last Admin: 05/21/18 11:56 Dose: 1 cap Ferrous Gluconate (Fergon) 324 mg PO TID [facility] Last Admin: 05/25/18 17:38 Dose: 324 mg Hydroxyurea (Hydrea) 500 mg PO BID [facility] Last Admin: 05/15/18 10:00 Dose: 500 mg Metronidazole (Flagyl) 500 mg in 100 mls @ 100 mls/hr IVPB Q8H [facility]; Protocol Last Admin: 05/25/18 15:46 Dose: 100 mls/hr Ceftazidime/Avibactam 0.94 gm/ (Sodium Chloride) 100 mls @ 50 mls/hr IV Q12H [facility]; Protocol Stop: 05/26/18 18:00 Methylprednisolone (Solu-Medrol) 30 mg IV Q8H [facility] Last Admin: 05/25/18 11:56 Dose: 30 mg Pantoprazole Sodium (Protonix Ec Tab) 40 mg PO DAILY [facility] Last Admin: 05/25/18 10:45 Dose: 40 mg Sodium Bicarbonate (Sodium Bicarbonate Tab) 1,300 mg PO TID [facility] Last Admin: 05/25/18 17:38 Dose: 1,300 mg Tramadol HCl (Ultram) 25 mg NG TID PRN PRN Reason: Pain, severe (8-10) Last Admin: 05/22/18 07:47 Dose: 25 mg Verapamil HCl (Verapamil Inj) 2.5 mg IVP Q4H PRN PRN Reason: Heart rate Vitamin B Complex/Vit C/Folic Acid (Nephro-Charlie) 1 tab PO 0800 [facility] Last Admin: 05/25/18 08:00 Dose: Not Given - Labs Labs: 05/25/18 06:35 05/25/18 06:35 PT 19.5 SECONDS (9.7-12.2) H 05/21/18 09:52 INR 1.8 05/21/18 09:52 APTT 34 SECONDS (21-34) 05/21/18 09:52
--- NOTE | 2018-05-25 22:02 | CP.PCM.PN ---
Subjective - Date & Time of Evaluation Date of Evaluation: 05/24/18 Time of Evaluation: 18:00 - Subjective Subjective: Weak Had at length conversation with patients family, they wish DNR/DNI Objective - Vital Signs/Intake and Output Vital Signs (last 24 hours): Temp Pulse Resp BP Pulse Ox 97.1 F L 92 H 21 142/82 92 L 05/25/18 16:00 05/25/18 19:23 05/25/18 19:23 05/25/18 19:23 05/25/18 19:23 Intake and Output: 05/25/18 05/26/18 18:59 06:59 Intake Total 720 50 Output Total 595 40 Balance 125 10 - Medications Medications: Current Medications Acetaminophen (Tylenol 325mg Tab) 650 mg PO Q6 PRN PRN Reason: Fever >100.4 F Last Admin: 05/19/18 19:00 Dose: 650 mg Albuterol/Ipratropium (Duoneb 3 Mg/0.5 Mg (3 Ml) Ud) 3 ml INH RQ6 [facility] Last Admin: 05/25/18 12:59 Dose: Not Given Bumetanide (Bumex) 2 mg PO BID [facility] Last Admin: 05/25/18 17:38 Dose: 2 mg Enoxaparin Sodium (Lovenox) 30 mg SC DAILY [facility] Last Admin: 05/21/18 10:40 Dose: 30 mg Epoetin Koby (Procrit) 8,000 unit SC TTS [facility] Last Admin: 05/24/18 10:12 Dose: 8,000 unit Ergocalciferol (Drisdol 50,000 Intl Units Cap) 1 cap PO Q7D [facility] Last Admin: 05/21/18 11:56 Dose: 1 cap Ferrous Gluconate (Fergon) 324 mg PO TID [facility] Last Admin: 05/25/18 17:38 Dose: 324 mg Hydroxyurea (Hydrea) 500 mg PO BID [facility] Last Admin: 05/15/18 10:00 Dose: 500 mg Metronidazole (Flagyl) 500 mg in 100 mls @ 100 mls/hr IVPB Q8H [facility]; Protocol Last Admin: 05/25/18 15:46 Dose: 100 mls/hr Ceftazidime/Avibactam 0.94 gm/ (Sodium Chloride) 100 mls @ 50 mls/hr IV Q12H [facility]; Protocol Stop: 05/26/18 18:00 Methylprednisolone (Solu-Medrol) 30 mg IV Q8H [facility] Last Admin: 05/25/18 21:00 Dose: 30 mg Pantoprazole Sodium (Protonix Ec Tab) 40 mg PO DAILY [facility] Last Admin: 05/25/18 10:45 Dose: 40 mg Sodium Bicarbonate (Sodium Bicarbonate Tab) 1,300 mg PO TID [facility] Last Admin: 05/25/18 17:38 Dose: 1,300 mg Tramadol HCl (Ultram) 25 mg NG TID PRN PRN Reason: Pain, severe (8-10) Last Admin: 05/22/18 07:47 Dose: 25 mg Verapamil HCl (Verapamil Inj) 2.5 mg IVP Q4H PRN PRN Reason: Heart rate Vitamin B Complex/Vit C/Folic Acid (Nephro-Charlie) 1 tab PO 0800 [facility] Last Admin: 05/25/18 08:00 Dose: Not Given - Labs Labs: 05/25/18 06:35 05/25/18 06:35 PT 19.5 SECONDS (9.7-12.2) H 05/21/18 09:52 INR 1.8 05/21/18 09:52 APTT 34 SECONDS (21-34) 05/21/18 09:52 - Head Exam Head Exam: ATRAUMATIC - Eye Exam Eye Exam: Normal appearance - ENT Exam ENT Exam: Mucous Membranes Dry - Respiratory Exam Respiratory Exam: NORMAL BREATHING PATTERN - Cardiovascular Exam Cardiovascular Exam: +S1, +S2 - GI/Abdominal Exam GI & Abdominal Exam: Normal Bowel Sounds Assessment and Plan (1) Thrombocytopenia Assessment & Plan: 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
--- NOTE | 2018-05-25 22:03 | CP.PCM.PN ---
Subjective - Date & Time of Evaluation Date of Evaluation: 05/25/18 Time of Evaluation: 19:00 - Subjective Subjective: Feels weak Objective - Vital Signs/Intake and Output Vital Signs (last 24 hours): Temp Pulse Resp BP Pulse Ox 97.1 F L 92 H 21 142/82 92 L 05/25/18 16:00 05/25/18 19:23 05/25/18 19:23 05/25/18 19:23 05/25/18 19:23 Intake and Output: 05/25/18 05/26/18 18:59 06:59 Intake Total 720 50 Output Total 595 40 Balance 125 10 - Medications Medications: Current Medications Acetaminophen (Tylenol 325mg Tab) 650 mg PO Q6 PRN PRN Reason: Fever >100.4 F Last Admin: 05/19/18 19:00 Dose: 650 mg Albuterol/Ipratropium (Duoneb 3 Mg/0.5 Mg (3 Ml) Ud) 3 ml INH RQ6 [facility] Last Admin: 05/25/18 12:59 Dose: Not Given Bumetanide (Bumex) 2 mg PO BID [facility] Last Admin: 05/25/18 17:38 Dose: 2 mg Enoxaparin Sodium (Lovenox) 30 mg SC DAILY [facility] Last Admin: 05/21/18 10:40 Dose: 30 mg Epoetin Koby (Procrit) 8,000 unit SC TTS [facility] Last Admin: 05/24/18 10:12 Dose: 8,000 unit Ergocalciferol (Drisdol 50,000 Intl Units Cap) 1 cap PO Q7D [facility] Last Admin: 05/21/18 11:56 Dose: 1 cap Ferrous Gluconate (Fergon) 324 mg PO TID [facility] Last Admin: 05/25/18 17:38 Dose: 324 mg Hydroxyurea (Hydrea) 500 mg PO BID [facility] Last Admin: 05/15/18 10:00 Dose: 500 mg Metronidazole (Flagyl) 500 mg in 100 mls @ 100 mls/hr IVPB Q8H [facility]; Protocol Last Admin: 05/25/18 15:46 Dose: 100 mls/hr Ceftazidime/Avibactam 0.94 gm/ (Sodium Chloride) 100 mls @ 50 mls/hr IV Q12H [facility]; Protocol Stop: 05/26/18 18:00 Methylprednisolone (Solu-Medrol) 30 mg IV Q8H [facility] Last Admin: 05/25/18 21:00 Dose: 30 mg Pantoprazole Sodium (Protonix Ec Tab) 40 mg PO DAILY [facility] Last Admin: 05/25/18 10:45 Dose: 40 mg Sodium Bicarbonate (Sodium Bicarbonate Tab) 1,300 mg PO TID [facility] Last Admin: 05/25/18 17:38 Dose: 1,300 mg Tramadol HCl (Ultram) 25 mg NG TID PRN PRN Reason: Pain, severe (8-10) Last Admin: 05/22/18 07:47 Dose: 25 mg Verapamil HCl (Verapamil Inj) 2.5 mg IVP Q4H PRN PRN Reason: Heart rate Vitamin B Complex/Vit C/Folic Acid (Nephro-Charlie) 1 tab PO 0800 [facility] Last Admin: 05/25/18 08:00 Dose: Not Given - Labs Labs: 05/25/18 06:35 05/25/18 06:35 PT 19.5 SECONDS (9.7-12.2) H 05/21/18 09:52 INR 1.8 05/21/18 09:52 APTT 34 SECONDS (21-34) 05/21/18 09:52 - Head Exam Head Exam: ATRAUMATIC - Eye Exam Eye Exam: Normal appearance - ENT Exam ENT Exam: Mucous Membranes Dry - Respiratory Exam Respiratory Exam: NORMAL BREATHING PATTERN - Cardiovascular Exam Cardiovascular Exam: +S1, +S2 - GI/Abdominal Exam GI & Abdominal Exam: Normal Bowel Sounds - Extremities Exam Extremities Exam: Pedal Edema Assessment and Plan (1) Thrombocytopenia Assessment & Plan: 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
[2018-05-26] MEDS: MethylPREDNISolone 40 mg Vial IV SCH ×3 (05:07→21:13)
[2018-05-26 07:05] LABS: BASO # 0.1 K/uL (0.0-0.2); BASO % 0.2 % (0.0-2.0); HEMOGLOBIN 11.9 g/dL (11.0-16.0); LYMPH % 2.2 % (20.0-40.0); MEAN CELL VOLUME 92.3 fL (81.0-99.0); MEAN CORPUSCULAR HEMOGLOBIN 29.2 pg (27.0-31.0); MEAN CORPUSCULAR HGB CONC 31.7 g/dL (33.0-37.0); MEAN PLATELET VOLUME 12.7 fL (7.2-11.7); MONO # 1.5 K/uL (0.0-0.8); MONO % 3.4 % (0.0-10.0); NEUT # 41.6 K/uL (1.8-7.0); NEUT % 94.2 % (50.0-75.0); NRBC % 16.1 % (0.0-2.0); RBC 4.09 Mil/uL (3.80-5.20); RED CELL DISTRIBUTION WIDTH 19.1 % (11.5-14.5)
[2018-05-26 07:18] LABS: PLATELET COUNT 15 K/uL (130-400); WHITE BLOOD COUNT 44.2 K/uL (4.8-10.8)
[2018-05-26 07:41] LABS: ALB/GLOB RATIO 0.9 (1.0-2.1); ALBUMIN 2.6 g/dL (3.5-5.0)
[2018-05-26] MEDS: Albuterol-Ipratrop 3 mg / 0.5 (3 ml) UD INH SCH ×3 (08:25→21:00)
[2018-05-26 08:36] LABS: BANDS 25 % (0-2); LYMPHOCYTE 3 % (20-40); MONOCYTE 5 % (0-10); NEUTROPHIL 67 % (50-75); NUCLEATED RED BLOOD CELL 31 % (0-0); TOTAL CELLS COUNTED 100
[2018-05-26 08:37] LABS: ANISOCYTOSIS SLIGHT; PLATELET ESTIMATE MARKEDLY DECREASED (NORMAL); POLYCHROMIC SLIGHT; TARGET CELLS SLIGHT
[2018-05-26 08:38] LABS: HYPOCHROMIC SLIGHT
--- NOTE | 2018-05-26 09:09 | PCM.FALL ---
Post Fall Progress Note - Post Fall Fall Date: 05/26/18 Description of Fall: Patient was being helped from bed when began to feel dizzy and slowly fell to the floor on her knees with assistance of the nurse. No trauma to the head. - Post Fall Exam Vital Sign: Temp Pulse Resp BP Pulse Ox 98.1 F 93 H 25 H 141/87 91 L 05/26/18 04:00 05/26/18 07:00 05/26/18 07:00 05/26/18 06:23 05/26/18 07:00 Eye Exam: Positive for: Pupils equal, Pupils reactive Ear Exam: Negative for: Discharge, Bleeding Nose Exam: Negative for: Discharge, Bleeding Skin Exam: Negative for: Colour, Lacerations, Grazes, Bruising Mouth Exam: Negative for: Tongue bitten, Teeth dislodge Neck Exam: Negative for: Tenderness, Tingling Spinal Exam: Negative for: Tenderness, Tingling Chest Exam: Negative for: Difficulty breathing, Tenderness in collar bones Abdomen Exam: Negative for: Tenderness Pelvic Exam: Negative for: Tenderness Arm Exam: Negative for: Deformity Leg Exam: Negative for: Deformity Impression/Plan: Plan: Passive ROM and Active ROM WNL Negative Anterior/ Posterior Drawer Test Negative Varus/Valgus No further imaging at this time needed.
[2018-05-26] MEDS: Pantoprazole 40 mg EC Tab PO SCH (10:07)
[2018-05-26] MEDS: Multivitamin Vitamin B Complex (Nephro-Vite) Tab PO SCH (10:07)
[2018-05-26] MEDS: metroNIDAZOLE IV 500 mg/100 ml 500 MG/100 ML BAG IVPB SCH ×2 (10:08→15:43)
--- NOTE | 2018-05-26 10:56 | CARD ---
APPROVED REPORT Date of service: 05/23/2018 EKG Measurement Heart [id number] <Conclusion> Atrial fibrillation with premature ventricular or aberrantly conducted complexes Nonspecific ST and T wave abnormality Abnormal ECG
--- NOTE | 2018-05-26 12:02 | RAD ---
Date of service: 05/26/2018 HISTORY: Evaluate effusions COMPARISON: No prior. FINDINGS: In situ right-sided PICC line again noted with LUNGS: Mild pulmonary venous congestive changes with bilateral lower lobe alveolar-type infiltrates and bilateral effusions left larger than right. PLEURA: No significant pleural effusion identified, no pneumothorax apparent. CARDIOVASCULAR: Tip in the SVC. Heart remains enlarged. OSSEOUS STRUCTURES: No significant abnormalities. VISUALIZED UPPER ABDOMEN: Normal. OTHER FINDINGS: None. IMPRESSION: Cardiomegaly with pulmonary venous congestive changes bilateral lower lobe alveolar-type infiltrates and bilateral effusions. No change right-sided PICC line.
--- NOTE | 2018-05-26 12:03 | CP.CCUPN ---
CCU Subjective - Physician Review Subjective (Free Text): Resident Critical Care Progress Note Patient examined at bedside. Had a fall episode and so code star was called. However it was a guided fall and patient did not sustain any head trauma. Patient is stable now and resting in bed. Appears weak and does not offer any complaints. Critical Care Time Spent (in minutes): 35 CCU Objective - Vital Signs / Intake & Output Intake and Output (Last 8hrs): Intake & Output 05/25/18 05/26/18 05/26/18 22:59 06:59 14:59 Intake Total 250 200 0 Output Total 335 260 35 Balance -85 -60 -35 Weight 195 lb Intake: Intake, IV Amount 200 200 0 Right Proximal Port PICC 200 200 0 Oral 50 Output: Urine 335 260 35 Urethral (Addison) 335 260 35 Other: # Bowel Movements 1 - Physical Exam Head: Positive for: Atraumatic, Normocephalic Pupils: Positive for: PERRL Extroacular Muscles: Positive for: EOMI Conjunctiva: Positive for: Normal Ears: Positive for: Normal Mouth: Positive for: Moist Mucous Membranes Nose (External): Positive for: Atraumatic Neck: Positive for: Normal Range of Motion Respiratory/Chest: Positive for: Good Air Exchange, Rhonchi. Negative for: Respiratory Distress Cardiovascular: Positive for: Regular Rate and Rhythm, Normal S1, S2, Tachycardic Abdomen: Positive for: Tenderness (diffuse ), Distention. Negative for: Peritoneal Signs, Rebound Upper Extremity: Positive for: Normal Inspection. Negative for: Cyanosis, Edema Lower Extremity: Positive for: Normal Inspection, Edema. Negative for: CALF TENDERNESS Neurological: Positive for: GCS=15, CN II-XII Intact, Speech Normal Skin: Positive for: Dry, Normal Color. Negative for: Rashes Psychiatric: Positive for: Alert, Oriented x 3, Anxious - Medications Active Medications: Active Medications Generic Name Dose Route Start Last Admin Trade Name Freq PRN Reason Stop Dose Admin Acetaminophen 650 mg 05/15/18 08:56 05/19/18 19:00 Tylenol 325mg Tab PO 650 mg Q6 PRN Administration Fever >100.4 F Albuterol/Ipratropium 3 ml 05/15/18 12:00 05/26/18 08:25 Duoneb 3 Mg/0.5 Mg (3 Ml) Ud INH Not Given RQ6 NAN Bumetanide 2 mg 05/24/18 18:00 05/26/18 10:07 Bumex PO 2 mg BID NAN Administration Enoxaparin Sodium 30 mg 05/15/18 10:00 05/21/18 10:40 Lovenox SC 30 mg DAILY NAN Administration Ergocalciferol 1 cap 05/21/18 11:00 05/21/18 11:56 Drisdol 50,000 Intl Units Cap PO 1 cap Q7D NAN Administration Ferrous Gluconate 324 mg 05/21/18 14:00 05/26/18 10:07 Fergon PO 324 mg TID NAN Administration Hydroxyurea 500 mg 05/15/18 10:00 05/15/18 10:00 Hydrea PO 500 mg BID NAN Administration Metronidazole 500 mg in 100 mls @ 100 mls/hr 05/24/18 16:00 05/26/18 10:08 Flagyl IVPB 100 mls/hr Q8H NAN Administration Protocol Ceftazidime/Avibactam 0.94 gm/ 100 mls @ 50 mls/hr 05/26/18 06:00 05/26/18 06:00 Sodium Chloride IV 05/26/18 18:00 50 mls/hr Q12H NAN Administration Protocol Methylprednisolone 30 mg 05/24/18 12:15 05/26/18 05:07 Solu-Medrol IV 30 mg Q8H NAN Administration Pantoprazole Sodium 40 mg 05/23/18 10:00 05/26/18 10:07 Protonix Ec Tab PO 40 mg DAILY NAN Administration Sodium Bicarbonate 1,300 mg 05/24/18 14:00 05/26/18 10:07 Sodium Bicarbonate Tab PO 1,300 mg TID NAN Administration Tramadol HCl 25 mg 05/22/18 07:16 05/22/18 07:47 Ultram NG 25 mg TID PRN Administration Pain, severe (8-10) Verapamil HCl 2.5 mg 05/24/18 07:25 Verapamil Inj IVP Q4H PRN Heart rate Vitamin B Complex/Vit C/Folic Acid 1 tab 05/22/18 08:00 05/26/18 10:07 Nephro-Charlie PO 1 tab 0800 NAN Administration - Patient Studies Lab Studies: Lab Studies 05/26/18 05/26/18 05/26/18 Range/Units 06:54 06:52 06:52 WBC 44.2 H* D (4.8-10.8) K/uL RBC 4.09 (3.80-5.20) Mil/uL Hgb 11.9 (11.0-16.0) g/dL Hct 37.7 (34.0-47.0) % MCV 92.3 (81.0-99.0) fL MCH 29.2 (27.0-31.0) pg MCHC 31.7 L (33.0-37.0) g/dL RDW 19.1 H (11.5-14.5) % Plt Count 15 L* D (130-400) K/uL MPV 12.7 H (7.2-11.7) fL Neut % (Auto) 94.2 H (50.0-75.0) % Lymph % (Auto) 2.2 L (20.0-40.0) % Harnett % (Auto) 3.4 (0.0-10.0) % Eos % (Auto) 0.0 (0.0-4.0) % Baso % (Auto) 0.2 (0.0-2.0) % Neut # (Auto) 41.6 H (1.8-7.0) K/uL Lymph # (Auto) 1.0 (1.0-4.3) K/uL Harnett # (Auto) 1.5 H (0.0-0.8) K/uL Eos # (Auto) 0.0 (0.0-0.7) K/uL Baso # (Auto) 0.1 (0.0-0.2) K/uL Neutrophils % (Manual) 67 (50-75) % Band Neutrophils % 25 H* (0-2) % Lymphocytes % (Manual) 3 L (20-40) % Monocytes % (Manual) 5 (0-10) % Nucleated RBC % 31 H (0-0) % Platelet Estimate Markedly decreased L (NORMAL) Polychromasia Slight Hypochromasia (manual) Slight Anisocytosis (manual) Slight Macrocytosis (manual) Slight Target Cells Slight Fibrinogen 232 (200-400) mg/dL Sodium 140 (132-148) mmol/L Potassium 4.0 (3.6-5.2) mmol/L Chloride 106 (98-107) mmol/L Carbon Dioxide 19 L (22-30) mmol/L Anion Gap 20 (10-20) BUN 131 H* (7-17) mg/dL Creatinine 2.6 H (0.7-1.2) mg/dL Est GFR ( Amer) 22 Est GFR (Non-Af Amer) 18 Random Glucose 147 H (65-105) mg/dL Calcium 9.0 (8.6-10.4) mg/dl Phosphorus 4.8 H (2.5-4.5) mg/dL Magnesium 2.3 (1.6-2.3) mg/dL Total Bilirubin 0.8 (0.2-1.3) mg/dL AST 12 L (14-36) U/L ALT 18 (9-52) U/L Alkaline Phosphatase 80 (38-126) U/L Total Protein 5.3 L (6.3-8.3) g/dL Albumin 2.6 L (3.5-5.0) g/dL Globulin 2.8 (2.2-3.9) gm/dL Albumin/Globulin Ratio 0.9 L (1.0-2.1) Laboratory Results - last 24 hr 05/26/18 05/26/18 05/26/18 06:52 06:52 06:54 WBC 44.2 H* D RBC 4.09 Hgb 11.9 Hct 37.7 MCV 92.3 MCH 29.2 MCHC 31.7 L RDW 19.1 H Plt Count 15 L* D MPV 12.7 H Neut % (Auto) 94.2 H Lymph % (Auto) 2.2 L Harnett % (Auto) 3.4 Eos % (Auto) 0.0 Baso % (Auto) 0.2 Neut # (Auto) 41.6 H Lymph # (Auto) 1.0 Harnett # (Auto) 1.5 H Eos # (Auto) 0.0 Baso # (Auto) 0.1 Neutrophils % (Manual) 67 Band Neutrophils % 25 H* Lymphocytes % (Manual) 3 L Monocytes % (Manual) 5 Nucleated RBC % 31 H Platelet Estimate Markedly decreased L Polychromasia Slight Hypochromasia (manual) Slight Anisocytosis (manual) Slight Macrocytosis (manual) Slight Target Cells Slight Fibrinogen 232 Sodium 140 Potassium 4.0 Chloride 106 Carbon Dioxide 19 L Anion Gap 20 BUN 131 H* Creatinine 2.6 H Est GFR ( Amer) 22 Est GFR (Non-Af Amer) 18 Random Glucose 147 H Calcium 9.0 Phosphorus 4.8 H Magnesium 2.3 Total Bilirubin 0.8 AST 12 L ALT 18 Alkaline Phosphatase 80 Total Protein 5.3 L Albumin 2.6 L Globulin 2.8 Albumin/Globulin Ratio 0.9 L Review of Systems - Review of Systems All systems: reviewed and no additional remarkable complaints except (mentioned in HPI) Critical Care Progress Note - Nutrition Nutrition: Nutrition Category Date Time Status Mechanically altered [Dysphagia/Modified Consistency Diets 05/22/18 Lunch Active Diet] [DIET] Assessment/Plan - Assessment and Plan (Free Text) Assessment: 67 year old female with a PMHx of myelofibrosis, HTN, renal insufficiency admitted with fever and UTI. 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 On previous admission patient had splenic embolization. Plan: Neuro: - AAO x3 Pulm: - nasal cannula as tolerated - maintain SPO2 > 92% - Duonebs 3 ml INH RQ6 CV: - currently hemodynamically stable - Eliquis held 2/ acute hemorrhagic process emanating from the spleen - ECHO 05/21 shows LVEF 62%, small pericardial effusion inferior to LV, mild AR, paradoxical septal motion GI: - s/p IR splenic artery embolization, now with inflammatory infarcting spleen. Morbidity is now high. family does not want splenectomy - Pepcid 20mg PO daily - advanced to soft diet Renal: - SOFIA, oliguria Family does not want dialysis - Nephrology Dr. Wylie consulted. Recs appreciated. ID: - ID Dr. Jackson consulted. Recs appreciated. - Avycaz 0.94 g IV q12h (started 05/15) for MDR Klebsiella - Metronidazole 500 mg Q8H - discontinue antibiotics after today Heme/Onc - Hx of myelofibrosis with chronic leukocytosis - Dr. Mcbride consulted. Recs appreciated. - Holding Hydrea, Jakafi - Ferrous gluconate 324 mg PO TID Endo: - Maintain euglycemia PPX: Pepcid 20 mg PO daily, Lovenox 30 mg SC daily Case and plan was reviewed and discussed with Dr. Baljinder Meza PGY-1 - Date & Time Date: 05/26/18 Time: 12:03
--- NOTE | 2018-05-26 14:45 | CP.PCM.PN ---
Subjective - Date & Time of Evaluation Date of Evaluation: 05/26/18 Time of Evaluation: 14:42 - Subjective Subjective: Nephrology Consultation Note: Assessment: critical Non-oliguric Acute Kidney Injury (N17.9) likely due to ATN/sepsis with UTI, low BP, pre-renal state Metabolic acidosis, Hyponatremia Hypertensive Chronic Kidney Disease (I12.9) Chronic Kidney Disease (N18.3) Stage 3 with ? mg proteinuria myelofibrosis with hepatosplenomegaly and extensive varices, anemia/thrombocytopenia atrial fibrillation, right lower extremity DVT on anticoagulant developed Splenic hemorrhage s/p splenic artery embolization now with splenic infarction right hydronephrosis/pyelonephritis and Ureteral stricture s/p stent A fib with RVR Plan Likely will need renal replacement therapy soon, however family so far hasn't agreed for it yet. called [phone] to discuss about it but no answer Maintain hemodynamics stable. Avoid hypotension. Patient not on ACEI/ARB due to recent SOFIA Monitor Input/Output, daily weights and renal function with basic metabolic panel continue with sodium bicarb 1300 mg tid IV albumin 100 gram given bladder pressure: 16 cm H2O anemia management as per heme: started iron and MVI. PRBC 2 unit 05/21/18. hold epogen as Hb 11.9 started weekly ergocalciferol continue with bumex surgery, ID and heme following Dose meds/antibiotics for reduced GFR. Avoid fleets enema/magnesium based laxatives. Avoid nephrotoxins/NSAIDs/ iodinated contrast (unless needed emergently) Glycemic control Further work up/management as per primary team Thanks for allowing me to participate in care of your patient. Will follow patient with you. Please call if any Qs. d/w team Dr Espinoza Wylie Office: [phone] Chief Complaint; pain abdomen Reason for consult: Acute Kidney Injury HPI: Pt is a 67 F with hx of HTN,myelofibrosis admitted recently in april with right flank pain, right hydronephrosis/pyelonephritis and Ureteral stricture s/p stent, hospital course was complicated by atrial fibrillation, right lower extremity DVT on anticoagulant developed Splenic hemorrhage s/p splenic artery embolization, hence systemic a/c was stopped. pt also with hepatosplenomegaly and extensive varices, anemia/thrombocytopenia admitted with sepsis with kelbsiella due to UTI pt also with CKD stage 3 with baseline cr 1.8-2.0 since hospitalization with AKIs Denies OTC/herbal meds or NSAIDs No recent iodinated contrast exposure. Noted obvious episodes of low BP. son bedside and helped in interpretations pt not good historian. ROS: limited ROS. pt with poor oral intake. s/p platelet transfusion but Plat counts keep going down Physical Examination: General Appearance: comfortable, in no acute respiratory distress, co-operative . ill appearing Vitals reviewed and noted as below Head; Atraumatic, normocephalic ENT: no ulcers no thrush. Tongue is midline. Oropharynx: no rash or ulcers. EYES: Pupils are equal, round and reactive to light accommodation. Eye muscles and extraocular movement intact. Sclera is anicteric. Neck; supple no lymphadenopathy, no thyromegaly or bruit Lungs: normal respiratory rate/effort. Breath sounds bilateral equal and few rales + Heart: Normal rate. s1s2 normal. No rub or gallop. Extremities: 2+ edema. No varicose veins Neurological: Patient is sleeping Skin: Warm and dry. Normal turgor. No rash. Palpitation: Normal elasticity for age Abdomen: Abdomen is soft. Bowel sounds +. There is improved abdominal tenderness without guarding no rigidity no organomegaly Psych: limited insight and normal affect/mood MSK: no joint tenderness or swelling. Digits and nails normal, no deformity : kidney or bladder not palpable Labs/imaging reviewed. Past medical history, past surgical history, family history, social history, allergy reviewed and noted as below Family hx: no hx of CKD. Rest non-contributory echo moderate pHTN, normal LVEF UA 2+ protein 3+ blood TRACEY/ANCA and Hep B/C neg Fena 0.5% Objective - Vital Signs/Intake and Output Vital Signs (last 24 hours): Temp Pulse Resp BP Pulse Ox 98.1 F 93 H 25 H 141/87 91 L 05/26/18 04:00 05/26/18 07:00 05/26/18 07:00 05/26/18 06:23 05/26/18 07:00 Intake and Output: 05/26/18 05/26/18 06:59 18:59 Intake Total 300 0 Output Total 395 35 Balance -95 -35 - Medications Medications: Current Medications Acetaminophen (Tylenol 325mg Tab) 650 mg PO Q6 PRN PRN Reason: Fever >100.4 F Last Admin: 05/19/18 19:00 Dose: 650 mg Albuterol/Ipratropium (Duoneb 3 Mg/0.5 Mg (3 Ml) Ud) 3 ml INH RQ6 [facility] Last Admin: 05/26/18 13:39 Dose: Not Given Bumetanide (Bumex) 2 mg PO BID [facility] Last Admin: 05/26/18 10:07 Dose: 2 mg Enoxaparin Sodium (Lovenox) 30 mg SC DAILY [facility] Last Admin: 05/21/18 10:40 Dose: 30 mg Ergocalciferol (Drisdol 50,000 Intl Units Cap) 1 cap PO Q7D [facility] Last Admin: 05/21/18 11:56 Dose: 1 cap Ferrous Gluconate (Fergon) 324 mg PO TID [facility] Last Admin: 05/26/18 10:07 Dose: 324 mg Hydroxyurea (Hydrea) 500 mg PO BID [facility] Last Admin: 05/15/18 10:00 Dose: 500 mg Metronidazole (Flagyl) 500 mg in 100 mls @ 100 mls/hr IVPB Q8H [facility]; Protocol Last Admin: 05/26/18 10:08 Dose: 100 mls/hr Ceftazidime/Avibactam 0.94 gm/ (Sodium Chloride) 100 mls @ 50 mls/hr IV Q12H [facility]; Protocol Stop: 05/26/18 18:00 Last Admin: 05/26/18 06:00 Dose: 50 mls/hr Methylprednisolone (Solu-Medrol) 30 mg IV Q8H [facility] Last Admin: 05/26/18 05:07 Dose: 30 mg Pantoprazole Sodium (Protonix Ec Tab) 40 mg PO DAILY [facility] Last Admin: 05/26/18 10:07 Dose: 40 mg Sodium Bicarbonate (Sodium Bicarbonate Tab) 1,300 mg PO TID [facility] Last Admin: 05/26/18 10:07 Dose: 1,300 mg Tramadol HCl (Ultram) 25 mg NG TID PRN PRN Reason: Pain, severe (8-10) Last Admin: 05/22/18 07:47 Dose: 25 mg Verapamil HCl (Verapamil Inj) 2.5 mg IVP Q4H PRN PRN Reason: Heart rate Vitamin B Complex/Vit C/Folic Acid (Nephro-Charlie) 1 tab PO 0800 [facility] Last Admin: 05/26/18 10:07 Dose: 1 tab - Labs Labs: 05/26/18 06:52 05/26/18 06:54 PT 19.5 SECONDS (9.7-12.2) H 05/21/18 09:52 INR 1.8 05/21/18 09:52 APTT 34 SECONDS (21-34) 05/21/18 09:52
--- NOTE | 2018-05-26 17:01 | CP.PCM.PN ---
Subjective - Date & Time of Evaluation Date of Evaluation: 05/26/18 Time of Evaluation: 16:59 - Subjective Subjective: INFECTIOUS DISEASE ICU#2 PROGRESS NOTES JANY JACKSON MD, FACP 05/26/2018 CHART REVIEWD PT EXAMINED CASE DISCUSSED Patient examined at bedside. Had a fall episode and so code star was called. However it was a guided fall and patient did not sustain any head trauma. Patient is stable now and resting in bed. Appears weak and does not offer any complaints. PT WITH HER DAUGHTER PRESENT NOW. HAVE RESPIRATORY DIFFICULTY, RETRACTING-POOR PROGNOSIS WBC ELEVATED WITH BANDS, BUT ON STEROIDS ALSO Patient examined at bedside. Had a fall episode and so code star was called. However it was a guided fall and patient did not sustain any head trauma. Patient is stable now and resting in bed. Appears weak and does not offer any complaints. Critical Care Time Spent (in minutes): 35 CCU Objective - Vital Signs / Intake & Output Intake and Output (Last 8hrs): Intake & Output 05/25/18 05/26/18 05/26/18 22:59 06:59 14:59 Intake Total 250 200 0 Output Total 335 260 35 Balance -85 -60 -35 Weight 195 lb Intake: Intake, IV Amount 200 200 0 Right Proximal Port PICC 200 200 0 Oral 50 Output: Urine 335 260 35 Urethral (Addison) 335 260 35 Other: # Bowel Movements 1 - Physical Exam Head: Positive for: Atraumatic, Normocephalic Pupils: Positive for: PERRL Extroacular Muscles: Positive for: EOMI Conjunctiva: Positive for: Normal Ears: Positive for: Normal Mouth: Positive for: Moist Mucous Membranes Nose (External): Positive for: Atraumatic Neck: Positive for: Normal Range of Motion Cardiovascular: Positive for: Regular Rate and Rhythm, Normal S1, S2, Tachycardic Abdomen: Positive for: Tenderness (diffuse ), Distention. Negative for: Peritoneal Signs, Rebound Upper Extremity: Positive for: Normal Inspection. Negative for: Cyanosis, Edema Lower Extremity: Positive for: Normal Inspection, Edema. Negative for: CALF TENDERNESS Neurological: Positive for: GCS=15, CN II-XII Intact, Speech Normal Skin: Positive for: Dry, Normal Color. Negative for: Rashes Psychiatric: Positive for: Alert, Oriented x 3, Anxious - Medications Active Medications: Active Medications Generic Name Dose Route Start Last Admin Trade Name Freq PRN Reason Stop Dose Admin Acetaminophen 650 mg 05/15/18 08:56 05/19/18 19:00 Tylenol 325mg Tab PO 650 mg Q6 PRN Administration Fever >100.4 F Albuterol/Ipratropium 3 ml 05/15/18 12:00 05/26/18 08:25 Duoneb 3 Mg/0.5 Mg (3 Ml) Ud INH Not Given RQ6 NAN Bumetanide 2 mg 05/24/18 18:00 05/26/18 10:07 Bumex PO 2 mg BID NAN Administration Enoxaparin Sodium 30 mg 05/15/18 10:00 05/21/18 10:40 Lovenox SC 30 mg DAILY NAN Administration Ergocalciferol 1 cap 05/21/18 11:00 05/21/18 11:56 Drisdol 50,000 Intl Units Cap PO 1 cap Q7D NAN Administration Ferrous Gluconate 324 mg 05/21/18 14:00 05/26/18 10:07 Fergon PO 324 mg TID NAN Administration Hydroxyurea 500 mg 05/15/18 10:00 05/15/18 10:00 Hydrea PO 500 mg BID NAN Administration Metronidazole 500 mg in 100 mls @ 100 mls/hr 05/24/18 16:00 05/26/18 10:08 Flagyl IVPB 100 mls/hr Q8H NAN Administration Protocol Ceftazidime/Avibactam 0.94 gm/ 100 mls @ 50 mls/hr 05/26/18 06:00 05/26/18 06:00 Sodium Chloride IV 05/26/18 18:00 50 mls/hr Q12H NAN Administration Protocol Methylprednisolone 30 mg 05/24/18 12:15 05/26/18 05:07 Solu-Medrol IV 30 mg Q8H NAN Administration Pantoprazole Sodium 40 mg 05/23/18 10:00 05/26/18 10:07 Protonix Ec Tab PO 40 mg DAILY NAN Administration Sodium Bicarbonate 1,300 mg 05/24/18 14:00 05/26/18 10:07 Sodium Bicarbonate Tab PO 1,300 mg TID NAN Administration Tramadol HCl 25 mg 05/22/18 07:16 05/22/18 07:47 Ultram NG 25 mg TID PRN Administration Pain, severe (8-10) Verapamil HCl 2.5 mg 05/24/18 07:25 Verapamil Inj IVP Q4H PRN Heart rate Vitamin B Complex/Vit C/Folic Acid 1 tab 05/22/18 08:00 05/26/18 10:07 Nephro-Charlie PO 1 tab 0800 NAN Administration - Patient Studies Lab Studies: Lab Studies 05/26/18 05/26/18 05/26/18 Range/Units 06:54 06:52 06:52 WBC 44.2 H* D (4.8-10.8) K/uL RBC 4.09 (3.80-5.20) Mil/uL Hgb 11.9 (11.0-16.0) g/dL Hct 37.7 (34.0-47.0) % MCV 92.3 (81.0-99.0) fL MCH 29.2 (27.0-31.0) pg MCHC 31.7 L (33.0-37.0) g/dL RDW 19.1 H (11.5-14.5) % Plt Count 15 L* D (130-400) K/uL MPV 12.7 H (7.2-11.7) fL Neut % (Auto) 94.2 H (50.0-75.0) % Lymph % (Auto) 2.2 L (20.0-40.0) % [place] % (Auto) 3.4 (0.0-10.0) % Eos % (Auto) 0.0 (0.0-4.0) % Baso % (Auto) 0.2 (0.0-2.0) % Neut # (Auto) 41.6 H (1.8-7.0) K/uL Lymph # (Auto) 1.0 (1.0-4.3) K/uL [place] # (Auto) 1.5 H (0.0-0.8) K/uL Eos # (Auto) 0.0 (0.0-0.7) K/uL Baso # (Auto) 0.1 (0.0-0.2) K/uL Neutrophils % (Manual) 67 (50-75) % Band Neutrophils % 25 H* (0-2) % Lymphocytes % (Manual) 3 L (20-40) % Monocytes % (Manual) 5 (0-10) % Nucleated RBC % 31 H (0-0) % Platelet Estimate Markedly decreased L (NORMAL) Polychromasia Slight Hypochromasia (manual) Slight Anisocytosis (manual) Slight Macrocytosis (manual) Slight Target Cells Slight Fibrinogen 232 (200-400) mg/dL Sodium 140 (132-148) mmol/L Potassium 4.0 (3.6-5.2) mmol/L Chloride 106 (98-107) mmol/L Carbon Dioxide 19 L (22-30) mmol/L Anion Gap 20 (10-20) BUN 131 H* (7-17) mg/dL Creatinine 2.6 H (0.7-1.2) mg/dL Est GFR ( Amer) 22 Est GFR (Non-Af Amer) 18 Random Glucose 147 H (65-105) mg/dL Calcium 9.0 (8.6-10.4) mg/dl Phosphorus 4.8 H (2.5-4.5) mg/dL Magnesium 2.3 (1.6-2.3) mg/dL Total Bilirubin 0.8 (0.2-1.3) mg/dL AST 12 L (14-36) U/L ALT 18 (9-52) U/L Alkaline Phosphatase 80 (38-126) U/L Total Protein 5.3 L (6.3-8.3) g/dL Albumin 2.6 L (3.5-5.0) g/dL Globulin 2.8 (2.2-3.9) gm/dL Albumin/Globulin Ratio 0.9 L (1.0-2.1) Laboratory Results - last 24 hr 05/26/18 05/26/18 05/26/18 06:52 06:52 06:54 WBC 44.2 H* D RBC 4.09 Hgb 11.9 Hct 37.7 MCV 92.3 MCH 29.2 MCHC 31.7 L RDW 19.1 H Plt Count 15 L* D MPV 12.7 H Neut % (Auto) 94.2 H Lymph % (Auto) 2.2 L [place] % (Auto) 3.4 Eos % (Auto) 0.0 Baso % (Auto) 0.2 Neut # (Auto) 41.6 H Lymph # (Auto) 1.0 [place] # (Auto) 1.5 H Eos # (Auto) 0.0 Baso # (Auto) 0.1 Neutrophils % (Manual) 67 Band Neutrophils % 25 H* Lymphocytes % (Manual) 3 L Monocytes % (Manual) 5 Nucleated RBC % 31 H Platelet Estimate Markedly decreased L Polychromasia Slight Hypochromasia (manual) Slight Anisocytosis (manual) Slight Macrocytosis (manual) Slight Target Cells Slight Fibrinogen 232 Sodium 140 Potassium 4.0 Chloride 106 Carbon Dioxide 19 L Anion Gap 20 BUN 131 H* Creatinine 2.6 H Est GFR ( Amer) 22 Est GFR (Non-Af Amer) 18 Random Glucose 147 H Calcium 9.0 Phosphorus 4.8 H Magnesium 2.3 Total Bilirubin 0.8 AST 12 L ALT 18 Alkaline Phosphatase 80 Total Protein 5.3 L Albumin 2.6 L Globulin 2.8 Albumin/Globulin Ratio 0.9 L Review of Systems - Review of Systems All systems: reviewed and no additional remarkable complaints except (mentioned in HPI) Critical Care Progress Note - Nutrition Nutrition: Nutrition Category Date Time Status Mechanically altered [Dysphagia/Modified Consistency Diets 05/22/18 Lunch Active Diet] [DIET] Assessment/Plan - Assessment and Plan (Free Text) Assessment: 67 year old female with a PMHx of myelofibrosis, HTN, renal insufficiency admitted with fever and UTI. 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 On previous admission patient had splenic embolization. Plan: Neuro: - AAO x3 Pulm: - nasal cannula as tolerated - maintain SPO2 > 92% - Duonebs 3 ml INH RQ6 CV: - currently hemodynamically stable - Eliquis held 2/ acute hemorrhagic process emanating from the spleen - ECHO 05/21 shows LVEF 62%, small pericardial effusion inferior to LV, mild AR, paradoxical septal motion GI: - s/p IR splenic artery embolization, now with inflammatory infarcting spleen. Morbidity is now high. family does not want splenectomy - Pepcid 20mg PO daily - advanced to soft diet Renal: - SOFIA, oliguria Family does not want dialysis - Nephrology Dr. Wylie consulted. Recs appreciated. ID: - ID Dr. Jackson consulted. Recs appreciated. - Avycaz 0.94 g IV q12h (started 05/15) for MDR Klebsiella - Metronidazole 500 mg Q8H - discontinue antibiotics after today Heme/Onc - Hx of myelofibrosis with chronic leukocytosis - Dr. Mcbride consulted. Recs appreciated. - Holding Hydrea, Jakafi - Ferrous gluconate 324 mg PO TID Endo: - Maintain euglycemia PPX: Pepcid 20 mg PO daily, Lovenox 30 mg SC daily Objective - Vital Signs/Intake and Output Vital Signs (last 24 hours): Temp Pulse Resp BP Pulse Ox 98.1 F 101 H 32 H 123/76 91 L 05/26/18 04:00 05/26/18 16:24 05/26/18 16:24 05/26/18 16:24 05/26/18 16:24 Intake and Output: 05/26/18 05/26/18 06:59 18:59 Intake Total 300 225 Output Total 395 350 Balance -95 -125 - Medications Medications: Current Medications Acetaminophen (Tylenol 325mg Tab) 650 mg PO Q6 PRN PRN Reason: Fever >100.4 F Last Admin: 05/19/18 19:00 Dose: 650 mg Albuterol/Ipratropium (Duoneb 3 Mg/0.5 Mg (3 Ml) Ud) 3 ml INH RQ6 [facility] Last Admin: 05/26/18 13:39 Dose: Not Given Bumetanide (Bumex) 2 mg PO BID [facility] Last Admin: 05/26/18 10:07 Dose: 2 mg Enoxaparin Sodium (Lovenox) 30 mg SC DAILY [facility] Last Admin: 05/21/18 10:40 Dose: 30 mg Ergocalciferol (Drisdol 50,000 Intl Units Cap) 1 cap PO Q7D [facility] Last Admin: 05/21/18 11:56 Dose: 1 cap Ferrous Gluconate (Fergon) 324 mg PO TID [facility] Last Admin: 05/26/18 15:06 Dose: 324 mg Hydroxyurea (Hydrea) 500 mg PO BID [facility] Last Admin: 05/15/18 10:00 Dose: 500 mg Metronidazole (Flagyl) 500 mg in 100 mls @ 100 mls/hr IVPB Q8H NAN; Protocol Last Admin: 05/26/18 10:08 Dose: 100 mls/hr Ceftazidime/Avibactam 0.94 gm/ (Sodium Chloride) 100 mls @ 50 mls/hr IV Q12H [facility]; Protocol Stop: 05/26/18 18:00 Last Admin: 05/26/18 06:00 Dose: 50 mls/hr Methylprednisolone (Solu-Medrol) 30 mg IV Q8H [facility] Last Admin: 05/26/18 13:15 Dose: 30 mg Pantoprazole Sodium (Protonix Ec Tab) 40 mg PO DAILY [facility] Last Admin: 05/26/18 10:07 Dose: 40 mg Sodium Bicarbonate (Sodium Bicarbonate Tab) 1,300 mg PO TID [facility] Last Admin: 05/26/18 15:06 Dose: 1,300 mg Tramadol HCl (Ultram) 25 mg NG TID PRN PRN Reason: Pain, severe (8-10) Last Admin: 05/22/18 07:47 Dose: 25 mg Verapamil HCl (Verapamil Inj) 2.5 mg IVP Q4H PRN PRN Reason: Heart rate Vitamin B Complex/Vit C/Folic Acid (Nephro-Charlie) 1 tab PO 0800 [facility] Last Admin: 05/26/18 10:07 Dose: 1 tab - Labs Labs: 05/26/18 06:52 05/26/18 06:54 PT 19.5 SECONDS (9.7-12.2) H 05/21/18 09:52 INR 1.8 05/21/18 09:52 APTT 34 SECONDS (21-34) 05/21/18 09:52
--- NOTE | 2018-05-26 18:27 | CP.PCM.PN ---
Subjective - Date & Time of Evaluation Date of Evaluation: 05/26/18 Time of Evaluation: 10:15 - Subjective Subjective: clinically same Objective - Vital Signs/Intake and Output Vital Signs (last 24 hours): Temp Pulse Resp BP Pulse Ox 98.9 F 98 H 34 H 130/80 89 L 05/26/18 16:00 05/26/18 18:23 05/26/18 18:23 05/26/18 18:23 05/26/18 18:23 Intake and Output: 05/26/18 05/26/18 06:59 18:59 Intake Total 300 240 Output Total 395 395 Balance -95 -155 - Medications Medications: Current Medications Acetaminophen (Tylenol 325mg Tab) 650 mg PO Q6 PRN PRN Reason: Fever >100.4 F Last Admin: 05/19/18 19:00 Dose: 650 mg Albuterol/Ipratropium (Duoneb 3 Mg/0.5 Mg (3 Ml) Ud) 3 ml INH RQ6 [facility] Last Admin: 05/26/18 13:39 Dose: Not Given Bumetanide (Bumex) 2 mg PO BID [facility] Last Admin: 05/26/18 10:07 Dose: 2 mg Enoxaparin Sodium (Lovenox) 30 mg SC DAILY [facility] Last Admin: 05/21/18 10:40 Dose: 30 mg Ergocalciferol (Drisdol 50,000 Intl Units Cap) 1 cap PO Q7D [facility] Last Admin: 05/21/18 11:56 Dose: 1 cap Ferrous Gluconate (Fergon) 324 mg PO TID [facility] Last Admin: 05/26/18 15:06 Dose: 324 mg Hydroxyurea (Hydrea) 500 mg PO BID [facility] Last Admin: 05/15/18 10:00 Dose: 500 mg Metronidazole (Flagyl) 500 mg in 100 mls @ 100 mls/hr IVPB Q8H [facility]; Protocol Last Admin: 05/26/18 10:08 Dose: 100 mls/hr Methylprednisolone (Solu-Medrol) 30 mg IV Q8H [facility] Last Admin: 05/26/18 13:15 Dose: 30 mg Pantoprazole Sodium (Protonix Ec Tab) 40 mg PO DAILY [facility] Last Admin: 05/26/18 10:07 Dose: 40 mg Sodium Bicarbonate (Sodium Bicarbonate Tab) 1,300 mg PO TID [facility] Last Admin: 05/26/18 15:06 Dose: 1,300 mg Tramadol HCl (Ultram) 25 mg NG TID PRN PRN Reason: Pain, severe (8-10) Last Admin: 05/22/18 07:47 Dose: 25 mg Verapamil HCl (Verapamil Inj) 2.5 mg IVP Q4H PRN PRN Reason: Heart rate Vitamin B Complex/Vit C/Folic Acid (Nephro-Charlie) 1 tab PO 0800 [facility] Last Admin: 05/26/18 10:07 Dose: 1 tab - Labs Labs: 05/26/18 06:52 05/26/18 06:54 PT 19.5 SECONDS (9.7-12.2) H 05/21/18 09:52 INR 1.8 05/21/18 09:52 APTT 34 SECONDS (21-34) 05/21/18 09:52 - Constitutional Appears: Non-toxic, Chronically Ill - Head Exam Head Exam: ATRAUMATIC - Eye Exam Eye Exam: EOMI, Normal appearance - ENT Exam ENT Exam: Mucous Membranes Moist - Neck Exam Neck Exam: Normal Inspection - Respiratory Exam Respiratory Exam: Decreased Breath Sounds - Cardiovascular Exam Cardiovascular Exam: +S1, +S2 - GI/Abdominal Exam GI & Abdominal Exam: Diminished Bowel Sounds - Rectal Exam Rectal Exam: Deferred Assessment and Plan (1) Abdominal pain Status: Acute (2) Anemia Status: Acute (3) Atrial fibrillation, new onset Status: Acute (4) CHF (congestive heart failure) Status: Acute (5) DVT (deep venous thrombosis) Status: Acute (6) Elevated brain natriuretic peptide (BNP) level Status: Acute (7) Hepatosplenomegaly Status: Acute (8) Hydronephrosis, right Status: Acute (9) Leucocytosis Status: Acute (10) Myelofibrosis Status: Acute (11) Portal vein thrombosis Status: Acute (12) Prophylactic measure Status: Acute (13) Pyelonephritis Status: Acute (14) Pyelonephritis due to Escherichia coli Status: Acute (15) Renal insufficiency Status: Acute (16) Spleen hematoma Status: Acute (17) Splenic hemorrhage Status: Acute (18) Thrombocytopenia Status: Acute (19) UTI (urinary tract infection) Status: Acute (20) Varices of other sites Status: Acute - Assessment and Plan (Free Text) Plan: Patient seen and examined at bedside Labs and meds reviewed Events noted Monitor input and output The patient DNR/DNI Supportive care Transfuse as needed
[2018-05-27] MEDS: metroNIDAZOLE IV 500 mg/100 ml 500 MG/100 ML BAG IVPB SCH ×2 (00:26→08:59)
[2018-05-27] MEDS: Albuterol-Ipratrop 3 mg / 0.5 (3 ml) UD INH SCH ×4 (02:50→20:28)
[2018-05-27] MEDS: MethylPREDNISolone 40 mg Vial IV SCH ×3 (04:22→20:55)
[2018-05-27 04:39] LABS: EOS # 0.1 K/uL (0.0-0.7); EOS % 0.1 % (0.0-4.0); HEMOGLOBIN 12.9 g/dL (11.0-16.0)
[2018-05-27 04:57] LABS: BASO # 0.2 K/uL (0.0-0.2); BASO % 0.3 % (0.0-2.0); LYMPH # 1.5 K/uL (1.0-4.3); LYMPH % 2.4 % (20.0-40.0); MEAN CELL VOLUME 93.2 fL (81.0-99.0); MEAN CORPUSCULAR HEMOGLOBIN 29.2 pg (27.0-31.0); MEAN CORPUSCULAR HGB CONC 31.3 g/dL (33.0-37.0); MEAN PLATELET VOLUME 11.9 fL (7.2-11.7); MONO # 1.6 K/uL (0.0-0.8); MONO % 2.6 % (0.0-10.0); NEUT # 58.3 K/uL (1.8-7.0); NEUT % 94.6 % (50.0-75.0); NRBC % 30.3 % (0.0-2.0); RBC 4.42 Mil/uL (3.80-5.20)
[2018-05-27 05:00] LABS: PLATELET COUNT 12 K/uL (130-400); WHITE BLOOD COUNT 61.6 K/uL (4.8-10.8)
[2018-05-27 05:04] LABS: ALBUMIN 2.8 g/dL (3.5-5.0); CALCIUM 8.9 mg/dl (8.6-10.4)
[2018-05-27 06:11] LABS: BANDS 9 % (0-2); LYMPHOCYTE 1 % (20-40); METAMYELOCYTE 3 % (0-0); MONOCYTE 3 % (0-10); MYELOCYTE 2 % (0-0); NEUTROPHIL 82 % (50-75); NUCLEATED RED BLOOD CELL 45 % (0-0); PLATELET ESTIMATE MARKEDLY DECREASED (NORMAL); TOTAL CELLS COUNTED 100
[2018-05-27 06:12] LABS: ANISOCYTOSIS MODERATE; POLYCHROMIC MODERATE
[2018-05-27 06:13] LABS: HOWELL JOLLY BODIES SLIGHT; OVALOCYTES SLIGHT
[2018-05-27 06:15] LABS: LARGE PLATELETS PRESENT
--- NOTE | 2018-05-27 06:52 | CP.PCM.PN ---
Subjective - Date & Time of Evaluation Date of Evaluation: 05/26/18 Time of Evaluation: 18:35 - Subjective Subjective: No new Cardiac events noted Physical Examination - Constitutional Appears: Non-toxic, No Acute Distress (on BIPAP), Chronically Ill - Head Exam Head Exam: ATRAUMATIC, NORMOCEPHALIC - Eye Exam Eye Exam: EOMI, PERRL - Respiratory Exam Respiratory Exam: NORMAL BREATHING PATTERN. absent: Respiratory Distress (on BIPAP) - Cardiovascular Exam Cardiovascular Exam: Tachycardia, +S1, +S2 - GI/Abdominal Exam GI & Abdominal Exam: Soft, Organomegaly (spleen). absent: Distended, Firm, Guarding, Rigid, Tenderness, Rebound - Extremities Exam Extremities Exam: Pedal Edema (trace). absent: Calf Tenderness - Back Exam Back Exam: absent: CVA tenderness (L), CVA tenderness (R) - Neurological Exam Neurological Exam: Alert, Awake - Skin Skin Exam: Dry, Warm Assessment and Plan - Assessment and Plan (Free Text) Assessment: 67F with splenomegaly, thrombocytopenia, and anemia s/p IR embolization Plan: Conservative medical management with comfort care Patient DNR/DNI Objective - Vital Signs/Intake and Output Vital Signs (last 24 hours): Temp Pulse Resp BP Pulse Ox 97.9 F 92 H 22 131/78 93 L 05/27/18 04:00 05/27/18 06:00 05/27/18 06:00 05/27/18 05:23 05/27/18 06:00 Intake and Output: 05/26/18 05/27/18 18:59 06:59 Intake Total 240 530 Output Total 395 290 Balance -155 240 - Medications Medications: Current Medications Acetaminophen (Tylenol 325mg Tab) 650 mg PO Q6 PRN PRN Reason: Fever >100.4 F Last Admin: 05/19/18 19:00 Dose: 650 mg Albuterol/Ipratropium (Duoneb 3 Mg/0.5 Mg (3 Ml) Ud) 3 ml INH RQ6 [facility] Last Admin: 05/27/18 02:50 Dose: Not Given Bumetanide (Bumex) 2 mg PO BID [facility] Last Admin: 05/26/18 18:44 Dose: 2 mg Enoxaparin Sodium (Lovenox) 30 mg SC DAILY [facility] Last Admin: 05/21/18 10:40 Dose: 30 mg Ergocalciferol (Drisdol 50,000 Intl Units Cap) 1 cap PO Q7D [facility] Last Admin: 05/21/18 11:56 Dose: 1 cap Ferrous Gluconate (Fergon) 324 mg PO TID [facility] Last Admin: 05/26/18 18:44 Dose: 324 mg Hydroxyurea (Hydrea) 500 mg PO BID [facility] Last Admin: 05/15/18 10:00 Dose: 500 mg Metronidazole (Flagyl) 500 mg in 100 mls @ 100 mls/hr IVPB Q8H [facility]; Protocol Last Admin: 05/27/18 00:26 Dose: 100 mls/hr Methylprednisolone (Solu-Medrol) 30 mg IV Q8H [facility] Last Admin: 05/27/18 04:22 Dose: 30 mg Pantoprazole Sodium (Protonix Ec Tab) 40 mg PO DAILY [facility] Last Admin: 05/26/18 10:07 Dose: 40 mg Sodium Bicarbonate (Sodium Bicarbonate Tab) 1,300 mg PO TID [facility] Last Admin: 05/26/18 18:44 Dose: 1,300 mg Tramadol HCl (Ultram) 25 mg NG TID PRN PRN Reason: Pain, severe (8-10) Last Admin: 05/22/18 07:47 Dose: 25 mg Verapamil HCl (Verapamil Inj) 2.5 mg IVP Q4H PRN PRN Reason: Heart rate Vitamin B Complex/Vit C/Folic Acid (Nephro-Charlie) 1 tab PO 0800 [facility] Last Admin: 05/26/18 10:07 Dose: 1 tab - Labs Labs: 05/27/18 04:31 05/27/18 04:31 PT 19.5 SECONDS (9.7-12.2) H 05/21/18 09:52 INR 1.8 05/21/18 09:52 APTT 34 SECONDS (21-34) 05/21/18 09:52
--- NOTE | 2018-05-27 08:48 | PCM.URO ---
Urology Progress Note - General General: Tolerating Diet - Subjective Abdominal Pain: Yes (LESS, LUQ) Flank Pain: No Voiding Well: Yes Dysuria: No Hematuria: No Dsypnea: No Chest Pain: No - Objective Lab Studies: Reviewed Lab Results Last 24 Hours: Laboratory Results - last 24 hr 05/27/18 05/27/18 04:31 04:31 WBC 61.6 H* RBC 4.42 Hgb 12.9 Hct 41.2 MCV 93.2 MCH 29.2 MCHC 31.3 L RDW 20.0 H Plt Count 12 L* MPV 11.9 H Neut % (Auto) 94.6 H Lymph % (Auto) 2.4 L [facility] % (Auto) 2.6 Eos % (Auto) 0.1 Baso % (Auto) 0.3 Neut # (Auto) 58.3 H Lymph # (Auto) 1.5 [facility] # (Auto) 1.6 H Eos # (Auto) 0.1 Baso # (Auto) 0.2 Neutrophils % (Manual) 82 H Band Neutrophils % 9 H Lymphocytes % (Manual) 1 L Monocytes % (Manual) 3 Metamyelocytes % 3 H Myelocytes % 2 H Nucleated RBC % 45 H Platelet Estimate Markedly decreased L Large Platelets Present Polychromasia Moderate Anisocytosis (manual) Moderate Macrocytosis (manual) Moderate Ovalocytes Slight [place] Bodies Slight Sodium 140 Potassium 4.5 Chloride 108 H Carbon Dioxide 18 L Anion Gap 19 BUN 147 H* Creatinine 2.9 H Est GFR ( Amer) 20 Est GFR (Non-Af Amer) 16 Random Glucose 156 H Calcium 8.9 Phosphorus 5.3 H Magnesium 2.3 Total Bilirubin 0.9 AST 12 L ALT 34 Alkaline Phosphatase 74 Total Protein 5.5 L Albumin 2.8 L Globulin 2.7 Albumin/Globulin Ratio 1.0 Intake & Output: Intake & Output 05/26/18 05/27/18 05/27/18 18:59 06:59 18:59 Intake Total 240 530 200 Output Total 395 290 Balance -155 240 200 Intake: Intake, IV Amount 100 100 Right Distal Port PICC 0 100 Right Proximal Port PICC 100 Oral 140 430 200 Output: Urine 395 290 Urethral (Addison) 395 290 Vital Signs: Vital Signs - 24 hr 05/26/18 05/26/18 05/26/18 09:00 09:23 10:00 Temperature Pulse Rate 89 87 100 H Respiratory 24 16 34 H Rate Blood Pressure 139/84 O2 Sat by Pulse 91 L 92 L 91 L Oximetry 05/26/18 05/26/18 05/26/18 10:24 11:00 11:24 Temperature Pulse Rate 82 87 81 Respiratory 22 33 H 19 Rate Blood Pressure 136/80 143/81 O2 Sat by Pulse 92 L 91 L 93 L Oximetry 05/26/18 05/26/18 05/26/18 12:00 12:24 13:00 Temperature 97.9 F Pulse Rate 87 93 H 83 Respiratory 31 H 34 H 25 H Rate Blood Pressure 138/85 O2 Sat by Pulse 91 L 92 L 92 L Oximetry 05/26/18 05/26/18 05/26/18 13:23 14:00 14:23 Temperature Pulse Rate 90 92 H 91 H Respiratory 22 21 31 H Rate Blood Pressure 138/82 137/81 O2 Sat by Pulse 92 L 94 L 90 L Oximetry 05/26/18 05/26/18 05/26/18 15:00 15:23 16:00 Temperature 98.9 F Pulse Rate 90 81 98 H Respiratory 31 H 18 33 H Rate Blood Pressure 144/84 O2 Sat by Pulse 92 L 94 L 93 L Oximetry 05/26/18 05/26/18 05/26/18 16:24 17:00 17:23 Temperature Pulse Rate 101 H 97 H 87 Respiratory 32 H 30 H 19 Rate Blood Pressure 123/76 134/76 O2 Sat by Pulse 91 L 91 L 92 L Oximetry 05/26/18 05/26/18 05/26/18 18:00 18:23 19:00 Temperature Pulse Rate 90 98 H 96 H Respiratory 22 34 H 31 H Rate Blood Pressure 130/80 O2 Sat by Pulse 93 L 89 L 92 L Oximetry 05/26/18 05/26/18 05/26/18 19:23 20:00 20:23 Temperature 98.2 F Pulse Rate 85 83 83 Respiratory 21 23 21 Rate Blood Pressure 133/80 136/80 O2 Sat by Pulse 93 L 92 L 93 L Oximetry 05/26/18 05/26/18 05/26/18 21:00 21:24 22:00 Temperature Pulse Rate 100 H 92 H 90 Respiratory 30 H 26 H 20 Rate Blood Pressure 137/74 O2 Sat by Pulse 93 L 93 L 90 L Oximetry 05/26/18 05/26/1818 22:23 23:00 23:24 Temperature Pulse Rate 93 H 83 92 H Respiratory 22 20 23 Rate Blood Pressure 132/78 125/75 O2 Sat by Pulse 90 L 94 L 93 L Oximetry 05/27/18 05/27/18 05/27/18 00:00 00:20 00:23 Temperature 97.1 F L Pulse Rate 89 92 H 93 H Respiratory 25 H 25 H 22 Rate Blood Pressure 135/81 O2 Sat by Pulse 95 95 95 Oximetry 05/27/18 05/27/18 05/27/18 01:00 01:24 02:00 Temperature Pulse Rate 90 90 81 Respiratory 20 17 21 Rate Blood Pressure 127/73 O2 Sat by Pulse 97 96 96 Oximetry 05/27/18 05/27/18 05/27/18 02:23 03:00 03:23 Temperature Pulse Rate 83 84 84 Respiratory 22 24 20 Rate Blood Pressure 135/79 136/83 O2 Sat by Pulse 97 96 96 Oximetry 05/27/18 05/27/18 05/27/18 04:00 04:24 05:00 Temperature 97.9 F Pulse Rate 95 H 96 H 95 H Respiratory 31 H 40 H 34 H Rate Blood Pressure 126/78 O2 Sat by Pulse 95 85 L 95 Oximetry 05/27/18 05/27/18 05/27/18 05:23 06:00 07:00 Temperature Pulse Rate 99 H 92 H 98 H Respiratory 32 H 22 17 Rate Blood Pressure 131/78 O2 Sat by Pulse 92 L 93 L 94 L Oximetry - Physical Exam Abdominal Exam: Soft, Non-Distended. absent: Non-Tender Bowel Sounds: Normal Back: No CVA Tenderness - Plan Additional Information: IMP: uti. R ureteral stent in place for hydronephrosis secondary to distal ureteral obstruction. Rec/P;. as per icu care. antibiotic rx. ID and hematologic care. Discussed with pt and daughter - Date & Time of Note Date: 05/17/18 Time: 19:20
[2018-05-27] MEDS: Multivitamin Vitamin B Complex (Nephro-Vite) Tab PO SCH (08:52)
[2018-05-27] MEDS: Tramadol 25 mg NG PRN (08:53)
[2018-05-27] MEDS: Pantoprazole 40 mg EC Tab PO SCH (09:02)
[2018-05-27] MEDS ORDERED: Metoprolol 1 mg/ml Inj IVP ONE (10:21)
[2018-05-27] MEDS ORDERED: SODIUM CHLORIDE 0.9% IVPB ONE (10:45)
[2018-05-27] MEDS ORDERED: METOPROLOL IVPB ONE (10:45)
--- NOTE | 2018-05-27 13:26 | CP.PCM.CON ---
History of Present Illness - History of Present Illness History of Present Illness: Palliative consult requested by Fab HEMPHILL for goals of care discussion patient is a 67 o female admitted from home with fever of 103.0. Patient was just discharged from the hospital a day prior this admission where she was treated for UTI for 3 weeks. Patient found to have Enterococus in the urine. ID called on consult. Patient is receiving Flagyl IV. Patient was recently diagnosed with Myelofybrosis and Doctor Rae placed her on jakofi and Hydrea. Those meds are on hold now while at hospital. Prognosis is seen as guarded and Palliative care was called to assist in process. PMH: Myelofibrosis, UTI, HTN, splenic hemorrhages, S/P splenic artery embolization Soc, Hx: , lives at [facility], one daughter works here at [facility]. Hx:denied Review of Systems - Constitutional Constitutional: Fatigue, Weakness - EENT Eyes: absent: As Per HPI, Blind Spots, Blurred Vision, Change in Vision, Decr eased Night Vision, Diplopia, Discharge, Dry Eye, Exophthalmos, Floaters, Irritation, Itchy Eyes, Loss of Peripheral Vision, Pain, Photophobia, Requires Corrective Lenses, Sees Flashes, Spots in Vision, Tunnel Vision, Other Visual Disturbances, Loss of Vision, Other Ears: absent: As Per HPI, Decreased Hearing, Ear Discharge, Ear Pain, Tinnitus, Abnormal Hearing, Disequilibrium, Dizziness, Other Nose/Mouth/Throat: absent: As Per HPI, Epistaxis, Nasal Congestion, Nasal Discharge, Nasal Obstruction, Nasal Trauma, Nose Pain, Post Nasal Drip, Sinus Pain, Sinus Pressure, Bleeding Gums, Change in Voice, Dental Pain, Dry Mouth, Dysphagia, Halitosis, Hoarsness, Lip Swelling, Mouth Lesions, Mouth Pain, Odynophagia, Sore Throat, Throat Swelling, Tongue Swelling, Facial Pain, Neck Pain, Neck Mass, Other - Breasts Breasts: absent: As Per HPI, Change in Shape, Mass, Pain, Nipple Discharge, Nipple Inversion, Skin Changes, Swelling, Other - Cardiovascular Cardiovascular: Dyspnea, Pedal Edema - Respiratory Respiratory: Dyspnea, Dyspnea on Exertion - Gastrointestinal Gastrointestinal: absent: As Per HPI, Abdominal Pain, Belching, Bloating, Change in Bowel Habits, Change in Stool Character, Coffee Ground Emesis, Constipation, Cramping, Diarrhea, Dyspepsia, Dysphagia, Early Satiety, Excessive Flatus, Fecal Incontinence, Heartburn, Hematemesis, Hematochezia, Loose Stools, Melena, Nausea, Odynophagia, Temesmus, Vomiting, Other - Genitourinary Genitourinary: absent: As Per HPI, Change in Urinary Stream, Difficulty Urinating, Dysuria, Flank Pain, Hematuria, Pyuria, Nocturia, Urinary Incontinence, Urinary Frequency, Urinary Hesitance, Urinary Urgency, Voiding Freq/Small Amts, Freq UTI, Hx Renal/Bladder Calculi, Hx /Renal Surgery, Bladder Distension, Other - Reproductive: Female Reproductive:Female: Post Menopausal - Menstruation Menstruation: Post Menopausal - Musculoskeletal Musculoskeletal: Muscle Weakness, Myalgias - Integumentary Integumentary: absent: As Per HPI, Acne, Alopecia, Bleeding Lesions, Change in Hair, Change in Nails, Change in Pigmentation, Changing Lesions, Dry Skin, Erythema, Furuncle, Hirsutism, Lesions, New Lesions, Non-Healing Lesions, Photosensitivity, Pruritus, Rash, Skin Pain, Skin Ulcer, Sores, Striae, Swelling, Unusual Bruising, Wounds, Jaundice, Other - Neurological Neurological: Focal Weakness, Weakness - Psychiatric Psychiatric: Anxiety - Endocrine Endocrine: Change in Libido Past Patient History - Infectious Disease Hx of Infectious Diseases: None - Past Medical History & Family History Past Medical History?: Yes - Past Social History Smoking Status: Never Smoked - CARDIAC Hx Cardiac Disorders: Yes Hx Congestive Heart Failure: Yes (Diastolic heart failure) Hx Hypercholesterolemia: No Hx Hypertension: Yes - PULMONARY Hx Chronic Obstructive Pulmonary Disease (COPD): No - NEUROLOGICAL HX Cerebrovascular Accident: No - HEENT Hx HEENT Problems: Yes Hx Blind: No Hx Cataracts: Yes Hx Deafness: No Hx Difficulty Chewing: No Hx Epistaxis: No Hx Glaucoma: Yes Hx Macular Degeneration: No Hx Sinusitis: No Other/Comment: Hx of eye surgery for repair - RENAL Hx Renal Failure: Yes - ENDOCRINE/METABOLIC Hx Diabetes Mellitus Type 1: No Hx Diabetes Mellitus Type 2: No Hx Hypothyroidism: No - HEMATOLOGICAL/ONCOLOGICAL Hx Blood Disorders: Yes Hx AIDS: No Hx Anemia: Yes Hx Blood Transfusions: Yes Hx Blood Transfusion Reaction: No Hx Bruising: No Hx Cancer: No Hx Chemotherapy: No Hx Cirrhosis: No Hx Gum Bleeding: No Hx Hemophilia: No Hx Hepatitis A: No Hx Hepatitis B: No Hx Hepatitis C: No Hx Human Immunodeficiency Virus (HIV): No Hx Leukemia: No Hx Metastesis: No Hx Shingles: No Hx Sickle Cell Disease: No Hx Unexplained Bleeding: No Hx von Willebrand's Disease: No Other/Comment: Myelofibrosis, Myelodysplasia - INTEGUMENTARY Hx Dermatological Problems: No Hx Basil Cell: No Hx Bryant: No Hx Cellulitis: No Hx Eczema: No Hx Melanoma: No Hx Psoriasis: No Hx Squamous Cell: No - MUSCULOSKELETAL/RHEUMATOLOGICAL Hx Arthritis: Yes Hx Rheumatoid Arthritis: No - GASTROINTESTINAL Hx Gastrointestinal Disorders: No Hx Bowel Surgery: No Hx Clostridium Difficile: No Hx Colitis: No Hx Colostomy: No Hx Constipation: No Hx Crohn's Disease: No Hx Diarrhea: No Hx Diverticulitis: No Hx Esophageal Varices: No Hx Fatty Liver Disease: No Hx Gall Bladder Disease: No Hx Gastritis: No Hx Gastroesophageal Reflux: No Hx Hemorrhoids: No Hx Ileostomy: No Hx Irritable Bowel: No Hx Liver Failure: No Hx Nausea: No Hx Pancreatitis: No HX Swallowing Problems: No Hx Ulcer: No Hx Vomiting: No Other/Comment: Hx of hepatospleenomegaly and spleenic embolization - GENITOURINARY/GYNECOLOGICAL Hx Genitourinary Disorders: Yes Hx Bladder Cancer: No Hx Bladder Stone: Yes Hx Cervical Cancer: No Hx Hematuria: No Hx Incontinence: No Hx Ovarian Cancer: No Hx Postmenopausal Bleeding: No Hx Reproductive Disorders: No Hx Sexually Transmitted Disorders: No Hx Uterine Cancer: No Hx Urinary Tract Infection: Yes Other/Comment: urethral strictor, - PSYCHIATRIC Hx Psychophysiologic Disorder: No Hx Anxiety: No Hx Bipolar Disorder: No Hx Depression: No Hx Emotional Abuse: No Hx Hallucinations: No Hx Panic Symptoms: No Hx Paranoia: No Hx Post Traumatic Stress Disorder: No Hx Psychosis: No Hx Physical Abuse: No Hx Schizophrenia: No Hx Sexual Abuse: No Hx Substance Use: No - SURGICAL HISTORY Hx Surgeries: Yes Hx Abdominal Aortic Aneurysm Repair: No Hx Amputation: No Hx Angiogram: No Hx Angioplasty: No Hx Appendectomy: No Hx Arteriovenous Shunt: No Hx Arthroscopy: No Hx Bile Duct Stent: No Hx Breast Biopsy: No Hx Cataract Extraction: No Hx Cardiac Catheterization: No Hx Carotid Endarterectomy: No Hx Section: No Hx Cholecystectomy: No Hx Coronary Artery Bypass Graft: No Hx Coronary Stent: No Hx Dilation and Curettage: No Hx Eye Surgery: Yes Hx Femoral-Popliteal Bypass Graft: No Hx Gastric Bypass Surgery: No Hx Herniorrhaphy: No Hx Hysterectomy: No Hx Joint Replacement: No Hx Kidney Transplant: No Hx Liver Transplant: No Hx Mastectomy: No Hx Musculoskeletal Surgery: No Hx Open Heart Surgery: No Hx Open Reduction Internal Fixation: No Hx Orthopedic Surgery: No Hx Parathyroidectomy: No Hx Penile Implant: No Hx Pulmonary Surgery: No Hx Splenectomy: No (spleenic embolization) Hx Thyroidectomy: No Hx Tonsillectomy: No Hx Tubal Ligation: No Hx Valve Replacement: No Hx Vascular Surgery: No Hx Vascular Access Device: No Other/Comment: embolization of spleen/ - ANESTHESIA Hx Anesthesia: Yes Hx Anesthesia Reactions: No Hx Malignant Hyperthermia: No Has any member of the family had a problem w/ anesthesia?: No Meds Allergies/Adverse Reactions: Allergies Allergy/AdvReac Type Severity Reaction Status Date / Time ciprofloxacin [From Cipro] AdvReac Verified 05/14/18 20:54 - Medications Medications: Current Medications Acetaminophen (Tylenol 325mg Tab) 650 mg PO Q6 PRN PRN Reason: Fever >100.4 F Last Admin: 05/19/18 19:00 Dose: 650 mg Albuterol/Ipratropium (Duoneb 3 Mg/0.5 Mg (3 Ml) Ud) 3 ml INH RQ6 [facility] Last Admin: 05/27/18 08:32 Dose: Not Given Bumetanide (Bumex) 2 mg PO BID [facility] Last Admin: 05/27/18 09:23 Dose: 2 mg Enoxaparin Sodium (Lovenox) 30 mg SC DAILY [facility] Last Admin: 05/21/18 10:40 Dose: 30 mg Ergocalciferol (Drisdol 50,000 Intl Units Cap) 1 cap PO Q7D [facility] Last Admin: 05/21/18 11:56 Dose: 1 cap Ferrous Gluconate (Fergon) 324 mg PO TID [facility] Last Admin: 05/27/18 09:13 Dose: 324 mg Hydroxyurea (Hydrea) 500 mg PO BID [facility] Last Admin: 05/15/18 10:00 Dose: 500 mg Metronidazole (Flagyl) 500 mg in 100 mls @ 100 mls/hr IVPB Q8H [facility]; Protocol Last Admin: 05/27/18 08:59 Dose: 100 mls/hr Methylprednisolone (Solu-Medrol) 30 mg IV Q8H [facility] Last Admin: 05/27/18 12:17 Dose: 30 mg Pantoprazole Sodium (Protonix Ec Tab) 40 mg PO DAILY [facility] Last Admin: 05/27/18 09:02 Dose: 40 mg Sodium Bicarbonate (Sodium Bicarbonate Tab) 1,300 mg PO TID [facility] Last Admin: 05/27/18 09:01 Dose: 1,300 mg Tramadol HCl (Ultram) 25 mg NG TID PRN PRN Reason: Pain, severe (8-10) Last Admin: 05/27/18 08:53 Dose: 25 mg Verapamil HCl (Verapamil Inj) 2.5 mg IVP Q4H PRN PRN Reason: Heart rate Last Admin: 05/27/18 09:06 Dose: 2.5 mg Vitamin B Complex/Vit C/Folic Acid (Nephro-Charlie) 1 tab PO 0800 [facility] Last Admin: 05/27/18 08:52 Dose: 1 tab Physical Exam - Constitutional Appears: Chronically Ill - Head Exam Head Exam: ATRAUMATIC, NORMAL INSPECTION, NORMOCEPHALIC - Eye Exam Eye Exam: EOMI, Normal appearance, PERRL Pupil Exam: NORMAL ACCOMODATION, PERRL - ENT Exam ENT Exam: Mucous Membranes Moist, Normal Exam - Neck Exam Neck exam: Positive for: Normal Inspection - Respiratory Exam Respiratory Exam: Decreased Breath Sounds - Cardiovascular Exam Cardiovascular Exam: Tachycardia, REGULAR RHYTHM - GI/Abdominal Exam GI & Abdominal Exam: Hypoactive Bowel Sounds - Rectal Exam Rectal Exam: Deferred - Extremities Exam Extremities exam: Positive for: pedal edema - Back Exam Back exam: muscle spasm - Neurological Exam Neurological exam: Motor Sensory Deficit - Psychiatric Exam Psychiatric exam: Depressed - Skin Skin Exam: Dry, Intact, Normal Color, Warm Results - Vital Signs Recent Vital Signs: Last Vital Signs Temp 97.9 F 05/27/18 04:00 Pulse 98 H 05/27/18 07:00 Resp 17 05/27/18 07:00 BP 131/78 05/27/18 05:23 Pulse Ox 94 L 05/27/18 07:00 - Labs Result Diagrams: 05/27/18 04:31 05/27/18 04:31 Labs: Laboratory Results - last 24 hr 05/27/18 05/27/18 04:31 04:31 WBC 61.6 H* RBC 4.42 Hgb 12.9 Hct 41.2 MCV 93.2 MCH 29.2 MCHC 31.3 L RDW 20.0 H Plt Count 12 L* MPV 11.9 H Neut % (Auto) 94.6 H Lymph % (Auto) 2.4 L [place] % (Auto) 2.6 Eos % (Auto) 0.1 Baso % (Auto) 0.3 Neut # (Auto) 58.3 H Lymph # (Auto) 1.5 [place] # (Auto) 1.6 H Eos # (Auto) 0.1 Baso # (Auto) 0.2 Neutrophils % (Manual) 82 H Band Neutrophils % 9 H Lymphocytes % (Manual) 1 L Monocytes % (Manual) 3 Metamyelocytes % 3 H Myelocytes % 2 H Nucleated RBC % 45 H Platelet Estimate Markedly decreased L Large Platelets Present Polychromasia Moderate Anisocytosis (manual) Moderate Macrocytosis (manual) Moderate Ovalocytes Slight Nath-Sunfield Bodies Slight Sodium 140 Potassium 4.5 Chloride 108 H Carbon Dioxide 18 L Anion Gap 19 BUN 147 H* Creatinine 2.9 H Est GFR ( Amer) 20 Est GFR (Non-Af Amer) 16 Random Glucose 156 H Calcium 8.9 Phosphorus 5.3 H Magnesium 2.3 Total Bilirubin 0.9 AST 12 L ALT 34 Alkaline Phosphatase 74 Total Protein 5.5 L Albumin 2.8 L Globulin 2.7 Albumin/Globulin Ratio 1.0 Assessment & Plan - Assessment and Plan (Free Text) Assessment: Palliative consult DNR/DNI, Advance directive on chart I reviewed Medical records, all diagnostic studies, examined patient in the bed. Patient is alert, oriented X 3. Patient does not speak Spanish. One of her 4 children is at bed side , translating. Breathing id diminished, patient is given O2 via mask. Patient does not like using Bi Pap as is " too heavy for her'. Abdomen soft, active bowel sounds. Patient reports poor appetite due to dislike of hospital's food. There is decreased active ROM to upper and lower extremities. Mild edema to hands and feet. Patient has been bed ridden for while, for couple of months. BP 131/78, HR 98, O2Sat 93 % on O2 WBC 44.2, Hb 11.9, Plat 15 Neutrophils elevated at 25.0 Patient's daughter cheryl, who is an ICU nurse is coming this afternoon and I will discuss goals of care with her. 2 pm Talked to patient's daughter Cheryl. She understands that her mother condition is terminal. Cheryl reports discussing hospice care with [facility]. Plan is to transfer patient [facility]. Impression * Myelofibrosis * Thrombocytopenia * Neutropenia * general weakness * bed ridden * Family concerned with comfort and quality of life Suggestions * Promote comfort * Offer comfort food as tolerated * Agree with Hospice care * DNR/DNI Advance care discussion 30 min
--- NOTE | 2018-05-27 15:17 | CP.CCUPN ---
<Haley Meza L - Last Filed: 05/27/18 15:14> CCU Subjective - Physician Review Subjective (Free Text): Resident Critical Care Progress Note Patient examined at bedside. No acute events overnight. Palliative consult today for discussion of goals of care for patient. Critical Care Time Spent (in minutes): 35 CCU Objective - Vital Signs / Intake & Output Vital Signs (Last 4 hours): Vital Signs Temp Pulse Resp BP Pulse Ox 05/27/18 13:24 107 H 24 114/74 93 L 05/27/18 12:23 113 H 29 H 117/76 91 L 05/27/18 12:00 97.5 F L 93 L 05/27/18 11:23 110 H 20 115/80 93 L Intake and Output (Last 8hrs): Intake & Output 05/27/18 05/27/18 05/27/18 06:59 14:59 22:59 Intake Total 500 800 Output Total 200 100 Balance 300 700 Intake: Intake, IV Amount 100 200 Right Distal Port PICC 100 Right Proximal Port PICC 200 Oral 400 600 Output: Urine 200 100 Urethral ([place]) 200 100 - Physical Exam Head: Positive for: Atraumatic, Normocephalic Pupils: Positive for: PERRL Extroacular Muscles: Positive for: EOMI Conjunctiva: Positive for: Normal Ears: Positive for: Normal Mouth: Positive for: Moist Mucous Membranes Nose (External): Positive for: Atraumatic Neck: Positive for: Normal Range of Motion Respiratory/Chest: Positive for: Good Air Exchange, Rhonchi. Negative for: Respiratory Distress Cardiovascular: Positive for: Regular Rate and Rhythm, Normal S1, S2, Tachycardic Abdomen: Positive for: Tenderness (diffuse ), Distention. Negative for: Peritoneal Signs, Rebound Upper Extremity: Positive for: Normal Inspection. Negative for: Cyanosis, Edema Lower Extremity: Positive for: Normal Inspection, Edema. Negative for: CALF TENDERNESS Neurological: Positive for: GCS=15, CN II-XII Intact, Speech Normal Skin: Positive for: Dry, Normal Color. Negative for: Rashes Psychiatric: Positive for: Alert, Oriented x 3, Anxious - Medications Active Medications: Active Medications Generic Name Dose Route Start Last Admin Trade Name Freq PRN Reason Stop Dose Admin Acetaminophen 650 mg 05/15/18 08:56 05/19/18 19:00 Tylenol 325mg Tab PO 650 mg Q6 PRN Administration Fever >100.4 F Albuterol/Ipratropium 3 ml 05/15/18 12:00 05/27/18 14:07 Duoneb 3 Mg/0.5 Mg (3 Ml) Ud INH Not Given RQ6 NAN Bumetanide 2 mg 05/24/18 18:00 05/27/18 09:23 Bumex PO 2 mg BID NAN Administration Enoxaparin Sodium 30 mg 05/15/18 10:00 05/21/18 10:40 Lovenox SC 30 mg DAILY ANN Administration Ergocalciferol 1 cap 05/21/18 11:00 05/21/18 11:56 Drisdol 50,000 Intl Units Cap PO 1 cap Q7D NAN Administration Ferrous Gluconate 324 mg 05/21/18 14:00 05/27/18 13:54 Fergon PO 324 mg TID NAN Administration Hydroxyurea 500 mg 05/15/18 10:00 05/15/18 10:00 Hydrea PO 500 mg BID NAN Administration Metronidazole 500 mg in 100 mls @ 100 mls/hr 05/24/18 16:00 05/27/18 08:59 Flagyl IVPB 100 mls/hr Q8H NAN Administration Protocol Methylprednisolone 30 mg 05/24/18 12:15 05/27/18 12:17 Solu-Medrol IV 30 mg Q8H NAN Administration Pantoprazole Sodium 40 mg 05/23/18 10:00 05/27/18 09:02 Protonix Ec Tab PO 40 mg DAILY NNA Administration Sodium Bicarbonate 1,300 mg 05/24/18 14:00 05/27/18 13:54 Sodium Bicarbonate Tab PO 1,300 mg TID NAN Administration Tramadol HCl 25 mg 05/22/18 07:16 05/27/18 08:53 Ultram NG 25 mg TID PRN Administration Pain, severe (8-10) Verapamil HCl 2.5 mg 05/24/18 07:25 05/27/18 09:06 Verapamil Inj IVP 2.5 mg Q4H PRN Administration Heart rate Vitamin B Complex/Vit C/Folic Acid 1 tab 05/22/18 08:00 05/27/18 08:52 Nephro-Charlie PO 1 tab 0800 NAN Administration - Patient Studies Lab Studies: Lab Studies 10/09/18 10/09/18 Range/Units 04:31 04:31 WBC 61.6 H* (4.8-10.8) K/uL RBC 4.42 (3.80-5.20) Mil/uL Hgb 12.9 (11.0-16.0) g/dL Hct 41.2 (34.0-47.0) % MCV 93.2 (81.0-99.0) fL MCH 29.2 (27.0-31.0) pg MCHC 31.3 L (33.0-37.0) g/dL RDW 20.0 H (11.5-14.5) % Plt Count 12 L* (130-400) K/uL MPV 11.9 H (7.2-11.7) fL Neut % (Auto) 94.6 H (50.0-75.0) % Lymph % (Auto) 2.4 L (20.0-40.0) % [place] % (Auto) 2.6 (0.0-10.0) % Eos % (Auto) 0.1 (0.0-4.0) % Baso % (Auto) 0.3 (0.0-2.0) % Neut # (Auto) 58.3 H (1.8-7.0) K/uL Lymph # (Auto) 1.5 (1.0-4.3) K/uL [place] # (Auto) 1.6 H (0.0-0.8) K/uL Eos # (Auto) 0.1 (0.0-0.7) K/uL Baso # (Auto) 0.2 (0.0-0.2) K/uL Neutrophils % (Manual) 82 H (50-75) % Band Neutrophils % 9 H (0-2) % Lymphocytes % (Manual) 1 L (20-40) % Monocytes % (Manual) 3 (0-10) % Metamyelocytes % 3 H (0-0) % Myelocytes % 2 H (0-0) % Nucleated RBC % 45 H (0-0) % Platelet Estimate Markedly decreased L (NORMAL) Large Platelets Present Polychromasia Moderate Anisocytosis (manual) Moderate Macrocytosis (manual) Moderate Ovalocytes Slight [place] Bodies Slight Sodium 140 (132-148) mmol/L Potassium 4.5 (3.6-5.2) mmol/L Chloride 108 H (98-107) mmol/L Carbon Dioxide 18 L (22-30) mmol/L Anion Gap 19 (10-20) BUN 147 H* (7-17) mg/dL Creatinine 2.9 H (0.7-1.2) mg/dL Est GFR ( Amer) 20 Est GFR (Non-Af Amer) 16 Random Glucose 156 H (65-105) mg/dL Calcium 8.9 (8.6-10.4) mg/dl Phosphorus 5.3 H (2.5-4.5) mg/dL Magnesium 2.3 (1.6-2.3) mg/dL Total Bilirubin 0.9 (0.2-1.3) mg/dL AST 12 L (14-36) U/L ALT 34 (9-52) U/L Alkaline Phosphatase 74 (38-126) U/L Total Protein 5.5 L (6.3-8.3) g/dL Albumin 2.8 L (3.5-5.0) g/dL Globulin 2.7 (2.2-3.9) gm/dL Albumin/Globulin Ratio 1.0 (1.0-2.1) Laboratory Results - last 24 hr 05/27/18 05/27/18 04:31 04:31 WBC 61.6 H* RBC 4.42 Hgb 12.9 Hct 41.2 MCV 93.2 MCH 29.2 MCHC 31.3 L RDW 20.0 H Plt Count 12 L* MPV 11.9 H Neut % (Auto) 94.6 H Lymph % (Auto) 2.4 L [place] % (Auto) 2.6 Eos % (Auto) 0.1 Baso % (Auto) 0.3 Neut # (Auto) 58.3 H Lymph # (Auto) 1.5 [place] # (Auto) 1.6 H Eos # (Auto) 0.1 Baso # (Auto) 0.2 Neutrophils % (Manual) 82 H Band Neutrophils % 9 H Lymphocytes % (Manual) 1 L Monocytes % (Manual) 3 Metamyelocytes % 3 H Myelocytes % 2 H Nucleated RBC % 45 H Platelet Estimate Markedly decreased L Large Platelets Present Polychromasia Moderate Anisocytosis (manual) Moderate Macrocytosis (manual) Moderate Ovalocytes Slight [place] Bodies Slight Sodium 140 Potassium 4.5 Chloride 108 H Carbon Dioxide 18 L Anion Gap 19 BUN 147 H* Creatinine 2.9 H Est GFR ( Amer) 20 Est GFR (Non-Af Amer) 16 Random Glucose 156 H Calcium 8.9 Phosphorus 5.3 H Magnesium 2.3 Total Bilirubin 0.9 AST 12 L ALT 34 Alkaline Phosphatase 74 Total Protein 5.5 L Albumin 2.8 L Globulin 2.7 Albumin/Globulin Ratio 1.0 Review of Systems - Review of Systems All systems: reviewed and no additional remarkable complaints except (as stated in HPI) Critical Care Progress Note - Nutrition Nutrition: Nutrition Category Date Time Status Mechanically altered [Dysphagia/Modified Consistency Diets 05/22/18 Lunch Active Diet] [DIET] Assessment/Plan - Assessment and Plan (Free Text) Assessment: 67 year old female with a PMHx of myelofibrosis, HTN, renal insufficiency admitted with fever and UTI. 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 On previous admission patient had splenic embolization. Plan: Neuro: - AAO x3 Pulm: - nasal cannula as tolerated - maintain SPO2 > 92% - Duonebs 3 ml INH RQ6 CV: - currently hemodynamically stable - Eliquis held 2/2 acute hemorrhagic process emanating from the spleen - Verapamil 2.5 mg IV Q4H PRN GI: - s/p IR splenic artery embolization, now with inflammatory infarcting spleen. Morbidity is now high. family does not want splenectomy - Pepcid 20mg PO daily - methylprednisolone 30 mg IV Q8H Renal: - SOFIA, oliguria - Family does not want dialysis - Nephrology Dr. Wylie consulted. Recs appreciated. - Bumex 2 mg PO BID ID: - ID Dr. Jackson consulted. Recs appreciated. - Was on Avycaz and metronidazole Heme/Onc - Hx of myelofibrosis with chronic leukocytosis - Dr. Mcbride consulted. Recs appreciated. - Holding Hydrea, Jakafi - Ferrous gluconate 324 mg PO TID Endo: - Maintain euglycemia PPX: Protonix 40 mg PO daily, Lovenox 30 mg SC daily held Case and plan was reviewed and discussed with Dr. Fouzia Meza PGY-1 - Date & Time Date: 05/27/18 Time: 08:00 <Terrance Fragoso - Last Filed: 05/27/18 16:37> CCU Objective - Vital Signs / Intake & Output Vital Signs (Last 4 hours): Vital Signs Pulse Resp BP Pulse Ox 05/27/18 13:24 107 H 24 114/74 93 L Intake and Output (Last 8hrs): Intake & Output 05/27/18 05/27/18 05/27/18 06:59 14:59 22:59 Intake Total 500 800 Output Total 200 100 Balance 300 700 Intake: Intake, IV Amount 100 200 Right Distal Port PICC 100 Right Proximal Port PICC 200 Oral 400 600 Output: Urine 200 100 Urethral ([place]) 200 100 - Medications Active Medications: Active Medications Generic Name Dose Route Start Last Admin Trade Name Freq PRN Reason Stop Dose Admin Acetaminophen 650 mg 05/15/18 08:56 05/19/18 19:00 Tylenol 325mg Tab PO 650 mg Q6 PRN Administration Fever >100.4 F Albuterol/Ipratropium 3 ml 05/15/18 12:00 05/27/18 14:07 Duoneb 3 Mg/0.5 Mg (3 Ml) Ud INH Not Given RQ6 NAN Bumetanide 2 mg 05/24/18 18:00 05/27/18 09:23 Bumex PO 2 mg BID NAN Administration Enoxaparin Sodium 30 mg 05/15/18 10:00 05/21/18 10:40 Lovenox SC 30 mg DAILY NAN Administration Ergocalciferol 1 cap 05/21/18 11:00 05/21/18 11:56 Drisdol 50,000 Intl Units Cap PO 1 cap Q7D NAN Administration Ferrous Gluconate 324 mg 05/21/18 14:00 05/27/18 13:54 Fergon PO 324 mg TID NAN Administration Hydroxyurea 500 mg 05/15/18 10:00 05/15/18 10:00 Hydrea PO 500 mg BID NAN Administration Methylprednisolone 30 mg 05/24/18 12:15 05/27/18 12:17 Solu-Medrol IV 30 mg Q8H NAN Administration Pantoprazole Sodium 40 mg 05/23/18 10:00 05/27/18 09:02 Protonix Ec Tab PO 40 mg DAILY NAN Administration Sodium Bicarbonate 1,300 mg 05/24/18 14:00 05/27/18 13:54 Sodium Bicarbonate Tab PO 1,300 mg TID NAN Administration Tramadol HCl 25 mg 10/04/18 07:16 05/27/18 08:53 Ultram NG 25 mg TID PRN Administration Pain, severe (8-10) Verapamil HCl 2.5 mg 05/24/18 07:25 05/27/18 09:06 Verapamil Inj IVP 2.5 mg Q4H PRN Administration Heart rate Vitamin B Complex/Vit C/Folic Acid 1 tab 05/22/18 08:00 05/27/18 08:52 Nephro-Charlie PO 1 tab 0800 NAN Administration - Patient Studies Lab Studies: Lab Studies 05/27/18 05/27/18 Range/Units 04:31 04:31 WBC 61.6 H* (4.8-10.8) K/uL RBC 4.42 (3.80-5.20) Mil/uL Hgb 12.9 (11.0-16.0) g/dL Hct 41.2 (34.0-47.0) % MCV 93.2 (81.0-99.0) fL MCH 29.2 (27.0-31.0) pg MCHC 31.3 L (33.0-37.0) g/dL RDW 20.0 H (11.5-14.5) % Plt Count 12 L* (130-400) K/uL MPV 11.9 H (7.2-11.7) fL Neut % (Auto) 94.6 H (50.0-75.0) % Lymph % (Auto) 2.4 L (20.0-40.0) % [place] % (Auto) 2.6 (0.0-10.0) % Eos % (Auto) 0.1 (0.0-4.0) % Baso % (Auto) 0.3 (0.0-2.0) % Neut # (Auto) 58.3 H (1.8-7.0) K/uL Lymph # (Auto) 1.5 (1.0-4.3) K/uL [place] # (Auto) 1.6 H (0.0-0.8) K/uL Eos # (Auto) 0.1 (0.0-0.7) K/uL Baso # (Auto) 0.2 (0.0-0.2) K/uL Neutrophils % (Manual) 82 H (50-75) % Band Neutrophils % 9 H (0-2) % Lymphocytes % (Manual) 1 L (20-40) % Monocytes % (Manual) 3 (0-10) % Metamyelocytes % 3 H (0-0) % Myelocytes % 2 H (0-0) % Nucleated RBC % 45 H (0-0) % Platelet Estimate Markedly decreased L (NORMAL) Large Platelets Present Polychromasia Moderate Anisocytosis (manual) Moderate Macrocytosis (manual) Moderate Ovalocytes Slight [place] Bodies Slight Sodium 140 (132-148) mmol/L Potassium 4.5 (3.6-5.2) mmol/L Chloride 108 H (98-107) mmol/L Carbon Dioxide 18 L (22-30) mmol/L Anion Gap 19 (10-20) BUN 147 H* (7-17) mg/dL Creatinine 2.9 H (0.7-1.2) mg/dL Est GFR ( Amer) 20 Est GFR (Non-Af Amer) 16 Random Glucose 156 H (65-105) mg/dL Calcium 8.9 (8.6-10.4) mg/dl Phosphorus 5.3 H (2.5-4.5) mg/dL Magnesium 2.3 (1.6-2.3) mg/dL Total Bilirubin 0.9 (0.2-1.3) mg/dL AST 12 L (14-36) U/L ALT 34 (9-52) U/L Alkaline Phosphatase 74 (38-126) U/L Total Protein 5.5 L (6.3-8.3) g/dL Albumin 2.8 L (3.5-5.0) g/dL Globulin 2.7 (2.2-3.9) gm/dL Albumin/Globulin Ratio 1.0 (1.0-2.1) Laboratory Results - last 24 hr 05/27/18 05/27/18 04:31 04:31 WBC 61.6 H* RBC 4.42 Hgb 12.9 Hct 41.2 MCV 93.2 MCH 29.2 MCHC 31.3 L RDW 20.0 H Plt Count 12 L* MPV 11.9 H Neut % (Auto) 94.6 H Lymph % (Auto) 2.4 L [place] % (Auto) 2.6 Eos % (Auto) 0.1 Baso % (Auto) 0.3 Neut # (Auto) 58.3 H Lymph # (Auto) 1.5 [place] # (Auto) 1.6 H Eos # (Auto) 0.1 Baso # (Auto) 0.2 Neutrophils % (Manual) 82 H Band Neutrophils % 9 H Lymphocytes % (Manual) 1 L Monocytes % (Manual) 3 Metamyelocytes % 3 H Myelocytes % 2 H Nucleated RBC % 45 H Platelet Estimate Markedly decreased L Large Platelets Present Polychromasia Moderate Anisocytosis (manual) Moderate Macrocytosis (manual) Moderate Ovalocytes Slight [place] Bodies Slight Sodium 140 Potassium 4.5 Chloride 108 H Carbon Dioxide 18 L Anion Gap 19 BUN 147 H* Creatinine 2.9 H Est GFR ( Amer) 20 Est GFR (Non-Af Amer) 16 Random Glucose 156 H Calcium 8.9 Phosphorus 5.3 H Magnesium 2.3 Total Bilirubin 0.9 AST 12 L ALT 34 Alkaline Phosphatase 74 Total Protein 5.5 L Albumin 2.8 L Globulin 2.7 Albumin/Globulin Ratio 1.0 Critical Care Progress Note - Nutrition Nutrition: Nutrition Category Date Time Status Mechanically altered [Dysphagia/Modified Consistency Diets 05/22/18 Lunch Active Diet] [DIET] Assessment/Plan (1) Renal insufficiency Current Visit: Yes Status: Acute Attending/Attestation - Attestation I have personally seen and examined this patient.: Yes I have fully participated in the care of the patient.: Yes I have reviewed all pertinent clinical information: Yes Notes (Text): 05/27/18 16:33 I have seen and examined the patient. Medical records, lab studies, and imaging were reviewed by me and a management plan was formulated on multidisciplinary rounds with resident Dr. Meza. I agree with their documented assessment and plan. Patient may benefit from dialysis, to remove fluid to improve breathing. This dialysis should be temporary and for management. She is making urine, just not enough to reduce pulmonary edema. She seems to be getting better with steroids to reduce inflammation. Her infection appears to have stabilized. She will be restarted on her meds for myelofibrosis once this all stabilizes. Family to make a decision. Critical Care Time 35 minutes. Multi-disciplinary rounds were performed with house staff, nursing, speech therapy, respiratory therapy, pharmacy and nutrition with integrated input from the primary team/attending and other consulting services. The documented time is cumulative and includes review of patient data/exams/labs/chart review and examination of the patient on rounds and throughout the day; time is exclusive of any procedures or teaching time.
--- NOTE | 2018-05-27 15:23 | CP.PCM.PN ---
Subjective - Date & Time of Evaluation Date of Evaluation: 05/27/18 Time of Evaluation: 11:30 - Subjective Subjective: clinically same Objective - Vital Signs/Intake and Output Vital Signs (last 24 hours): Temp Pulse Resp BP Pulse Ox 97.5 F L 107 H 24 114/74 93 L 05/27/18 12:00 05/27/18 13:24 05/27/18 13:24 05/27/18 13:24 05/27/18 13:24 Intake and Output: 05/27/18 05/27/18 06:59 18:59 Intake Total 530 800 Output Total 290 100 Balance 240 700 - Medications Medications: Current Medications Acetaminophen (Tylenol 325mg Tab) 650 mg PO Q6 PRN PRN Reason: Fever >100.4 F Last Admin: 05/19/18 19:00 Dose: 650 mg Albuterol/Ipratropium (Duoneb 3 Mg/0.5 Mg (3 Ml) Ud) 3 ml INH RQ6 [facility] Last Admin: 05/27/18 14:07 Dose: Not Given Bumetanide (Bumex) 2 mg PO BID [facility] Last Admin: 05/27/18 09:23 Dose: 2 mg Enoxaparin Sodium (Lovenox) 30 mg SC DAILY [facility] Last Admin: 05/21/18 10:40 Dose: 30 mg Ergocalciferol (Drisdol 50,000 Intl Units Cap) 1 cap PO Q7D [facility] Last Admin: 05/21/18 11:56 Dose: 1 cap Ferrous Gluconate (Fergon) 324 mg PO TID [facility] Last Admin: 05/27/18 13:54 Dose: 324 mg Hydroxyurea (Hydrea) 500 mg PO BID [facility] Last Admin: 05/15/18 10:00 Dose: 500 mg Methylprednisolone (Solu-Medrol) 30 mg IV Q8H [facility] Last Admin: 05/27/18 12:17 Dose: 30 mg Pantoprazole Sodium (Protonix Ec Tab) 40 mg PO DAILY [facility] Last Admin: 05/27/18 09:02 Dose: 40 mg Sodium Bicarbonate (Sodium Bicarbonate Tab) 1,300 mg PO TID [facility] Last Admin: 05/27/18 13:54 Dose: 1,300 mg Tramadol HCl (Ultram) 25 mg NG TID PRN PRN Reason: Pain, severe (8-10) Last Admin: 05/27/18 08:53 Dose: 25 mg Verapamil HCl (Verapamil Inj) 2.5 mg IVP Q4H PRN PRN Reason: Heart rate Last Admin: 05/27/18 09:06 Dose: 2.5 mg Vitamin B Complex/Vit C/Folic Acid (Nephro-Charlie) 1 tab PO 0800 NAN Last Admin: 05/27/18 08:52 Dose: 1 tab - Labs Labs: 05/27/18 04:31 05/27/18 04:31 PT 19.5 SECONDS (9.7-12.2) H 05/21/18 09:52 INR 1.8 05/21/18 09:52 APTT 34 SECONDS (21-34) 05/21/18 09:52 - Constitutional Appears: Well - Head Exam Head Exam: ATRAUMATIC, NORMAL INSPECTION, NORMOCEPHALIC - Eye Exam Eye Exam: EOMI, Normal appearance, PERRL Pupil Exam: NORMAL ACCOMODATION, PERRL - ENT Exam ENT Exam: Mucous Membranes Moist, Normal Exam - Neck Exam Neck Exam: Full ROM, Normal Inspection. absent: Lymphadenopathy - Respiratory Exam Respiratory Exam: Decreased Breath Sounds - Cardiovascular Exam Cardiovascular Exam: REGULAR RHYTHM, +S1, +S2 - GI/Abdominal Exam GI & Abdominal Exam: Soft, Diminished Bowel Sounds - Rectal Exam Rectal Exam: Deferred Assessment and Plan (1) Abdominal pain Status: Acute (2) Anemia Status: Acute (3) Atrial fibrillation, new onset Status: Acute (4) CHF (congestive heart failure) Status: Acute (5) DVT (deep venous thrombosis) Status: Acute (6) Elevated brain natriuretic peptide (BNP) level Status: Acute (7) Hepatosplenomegaly Status: Acute (8) Hydronephrosis, right Status: Acute (9) Leucocytosis Status: Acute (10) Myelofibrosis Status: Acute (11) Portal vein thrombosis Status: Acute (12) Prophylactic measure Status: Acute (13) Pyelonephritis Status: Acute (14) Pyelonephritis due to Escherichia coli Status: Acute (15) Renal insufficiency Status: Acute (16) Spleen hematoma Status: Acute (17) Splenic hemorrhage Status: Acute (18) Thrombocytopenia Status: Acute (19) UTI (urinary tract infection) Status: Acute (20) Varices of other sites Status: Acute - Assessment and Plan (Free Text) Plan: Patient seen and examined at bedside Lethargic Events noted Multiple consults on board Labs ordered Transfusion as needed DNR/DNI Discussed with family Monitor input and output
--- NOTE | 2018-05-27 15:58 | CP.PCM.PN ---
Subjective - Date & Time of Evaluation Date of Evaluation: 05/27/18 Time of Evaluation: 15:56 - Subjective Subjective: Nephrology Consultation Note: Assessment: critical Non-oliguric Acute Kidney Injury (N17.9) likely due to ATN/sepsis with UTI, low BP, pre-renal state Metabolic acidosis, Hyponatremia Hypertensive Chronic Kidney Disease (I12.9) Chronic Kidney Disease (N18.3) Stage 3 with ? mg proteinuria myelofibrosis with hepatosplenomegaly and extensive varices, anemia/thrombocytopenia atrial fibrillation, right lower extremity DVT on anticoagulant developed Splenic hemorrhage s/p splenic artery embolization now with splenic infarction right hydronephrosis/pyelonephritis and Ureteral stricture s/p stent A fib with RVR Plan family bedside including daughter. explained need for dialysis initiation, pro/cons of HD, she declined dialysis and said that family had opted for comfort care and hospice. palliative care evaluating today Maintain hemodynamics stable. Avoid hypotension. Patient not on ACEI/ARB due to recent SOFIA Monitor Input/Output, daily weights and renal function with basic metabolic panel continue with sodium bicarb 1300 mg tid IV albumin 100 gram given bladder pressure: 16 cm H2O anemia management as per heme: started iron and MVI. PRBC 2 unit 05/21/18. hold epogen as Hb 11.9 started weekly ergocalciferol continue with bumex surgery, ID and heme following Dose meds/antibiotics for reduced GFR. Avoid fleets enema/magnesium based laxatives. Avoid nephrotoxins/NSAIDs/ iodinated contrast (unless needed emergently) Glycemic control Further work up/management as per primary team Thanks for allowing me to participate in care of your patient. Will follow patient with you. Please call if any Qs. d/w team and family Dr Espinoza Wylie Office: [phone] Chief Complaint; pain abdomen Reason for consult: Acute Kidney Injury HPI: Pt is a 67 F with hx of HTN,myelofibrosis admitted recently in april with right flank pain, right hydronephrosis/pyelonephritis and Ureteral strictur e s/p stent, hospital course was complicated by atrial fibrillation, right lower extremity DVT on anticoagulant developed Splenic hemorrhage s/p splenic artery embolization, hence systemic a/c was stopped. pt also with hepatosplenomegaly and extensive varices, anemia/thrombocytopenia admitted with sepsis with kelbsiella due to UTI pt also with CKD stage 3 with baseline cr 1.8-2.0 since hospitalization with AKIs Denies OTC/herbal meds or NSAIDs No recent iodinated contrast exposure. Noted obvious episodes of low BP. son bedside and helped in interpretations pt not good historian. ROS: limited ROS. pt with poor oral intake. s/p platelet transfusion but Plat counts keep going down Physical Examination: General Appearance: comfortable, in no acute respiratory distress, co-operative . ill appearing Vitals reviewed and noted as below Head; Atraumatic, normocephalic ENT: no ulcers no thrush. Tongue is midline. Oropharynx: no rash or ulcers. EYES: Pupils are equal, round and reactive to light accommodation. Eye muscles and extraocular movement intact. Sclera is anicteric. Neck; supple no lymphadenopathy, no thyromegaly or bruit Lungs: normal respiratory rate/effort. Breath sounds bilateral equal and few rales + Heart: Normal rate. s1s2 normal. No rub or gallop. Extremities: 2+ edema. No varicose veins Neurological: Patient is sleeping Skin: Warm and dry. Normal turgor. No rash. Palpitation: Normal elasticity for age Abdomen: Abdomen is soft. Bowel sounds +. There is improved abdominal tenderness without guarding no rigidity no organomegaly Psych: limited insight and normal affect/mood MSK: no joint tenderness or swelling. Digits and nails normal, no deformity : kidney or bladder not palpable Labs/imaging reviewed. Past medical history, past surgical history, family history, social history, allergy reviewed and noted as below Family hx: no hx of CKD. Rest non-contributory echo moderate pHTN, normal LVEF UA 2+ protein 3+ blood TRACEY/ANCA and Hep B/C neg Fena 0.5% Objective - Vital Signs/Intake and Output Vital Signs (last 24 hours): Temp Pulse Resp BP Pulse Ox 97.5 F L 107 H 24 114/74 93 L 05/27/18 12:00 05/27/18 13:24 05/27/18 13:24 05/27/18 13:24 05/27/18 13:24 Intake and Output: 05/27/18 05/27/18 06:59 18:59 Intake Total 530 800 Output Total 290 100 Balance 240 700 - Medications Medications: Current Medications Acetaminophen (Tylenol 325mg Tab) 650 mg PO Q6 PRN PRN Reason: Fever >100.4 F Last Admin: 05/19/18 19:00 Dose: 650 mg Albuterol/Ipratropium (Duoneb 3 Mg/0.5 Mg (3 Ml) Ud) 3 ml INH RQ6 [facility] Last Admin: 05/27/18 14:07 Dose: Not Given Bumetanide (Bumex) 2 mg PO BID [facility] Last Admin: 05/27/18 09:23 Dose: 2 mg Enoxaparin Sodium (Lovenox) 30 mg SC DAILY [facility] Last Admin: 05/21/18 10:40 Dose: 30 mg Ergocalciferol (Drisdol 50,000 Intl Units Cap) 1 cap PO Q7D [facility] Last Admin: 05/21/18 11:56 Dose: 1 cap Ferrous Gluconate (Fergon) 324 mg PO TID [facility] Last Admin: 05/27/18 13:54 Dose: 324 mg Hydroxyurea (Hydrea) 500 mg PO BID [facility] Last Admin: 05/15/18 10:00 Dose: 500 mg Methylprednisolone (Solu-Medrol) 30 mg IV Q8H [facility] Last Admin: 05/27/18 12:17 Dose: 30 mg Pantoprazole Sodium (Protonix Ec Tab) 40 mg PO DAILY [facility] Last Admin: 05/27/18 09:02 Dose: 40 mg Sodium Bicarbonate (Sodium Bicarbonate Tab) 1,300 mg PO TID [facility] Last Admin: 05/27/18 13:54 Dose: 1,300 mg Tramadol HCl (Ultram) 25 mg NG TID PRN PRN Reason: Pain, severe (8-10) Last Admin: 05/27/18 08:53 Dose: 25 mg Verapamil HCl (Verapamil Inj) 2.5 mg IVP Q4H PRN PRN Reason: Heart rate Last Admin: 05/27/18 09:06 Dose: 2.5 mg Vitamin B Complex/Vit C/Folic Acid (Nephro-Charlie) 1 tab PO 0800 [facility] Last Admin: 05/27/18 08:52 Dose: 1 tab - Labs Labs: 05/27/18 04:31 05/27/18 04:31 PT 19.5 SECONDS (9.7-12.2) H 05/21/18 09:52 INR 1.8 05/21/18 09:52 APTT 34 SECONDS (21-34) 05/21/18 09:52
--- NOTE | 2018-05-27 19:41 | CP.PCM.PN ---
Subjective - Date & Time of Evaluation Date of Evaluation: 05/26/18 Time of Evaluation: 19:00 - Subjective Subjective: Tired, fatigued. Family at bedside. Objective - Vital Signs/Intake and Output Vital Signs (last 24 hours): Temp Pulse Resp BP Pulse Ox 97.7 F 89 26 H 122/69 91 L 05/27/18 16:00 05/27/18 19:24 05/27/18 19:24 05/27/18 19:24 05/27/18 19:24 Intake and Output: 05/27/18 05/28/18 18:59 06:59 Intake Total 1000 Output Total 246 20 Balance 754 -20 - Medications Medications: Current Medications Acetaminophen (Tylenol 325mg Tab) 650 mg PO Q6 PRN PRN Reason: Fever >100.4 F Last Admin: 05/19/18 19:00 Dose: 650 mg Albuterol/Ipratropium (Duoneb 3 Mg/0.5 Mg (3 Ml) Ud) 3 ml INH RQ6 [facility] Last Admin: 05/27/18 14:07 Dose: Not Given Bumetanide (Bumex) 2 mg PO BID [facility] Last Admin: 05/27/18 18:08 Dose: 2 mg Enoxaparin Sodium (Lovenox) 30 mg SC DAILY [facility] Last Admin: 05/21/18 10:40 Dose: 30 mg Ergocalciferol (Drisdol 50,000 Intl Units Cap) 1 cap PO Q7D [facility] Last Admin: 05/21/18 11:56 Dose: 1 cap Ferrous Gluconate (Fergon) 324 mg PO TID [facility] Last Admin: 05/27/18 18:08 Dose: 324 mg Hydroxyurea (Hydrea) 500 mg PO BID [facility] Last Admin: 05/15/18 10:00 Dose: 500 mg Methylprednisolone (Solu-Medrol) 30 mg IV Q8H [facility] Last Admin: 05/27/18 12:17 Dose: 30 mg Pantoprazole Sodium (Protonix Ec Tab) 40 mg PO DAILY [facility] Last Admin: 05/27/18 09:02 Dose: 40 mg Sodium Bicarbonate (Sodium Bicarbonate Tab) 1,300 mg PO TID [facility] Last Admin: 05/27/18 18:08 Dose: 1,300 mg Tramadol HCl (Ultram) 25 mg NG TID PRN PRN Reason: Pain, severe (8-10) Last Admin: 05/27/18 08:53 Dose: 25 mg Verapamil HCl (Verapamil Inj) 2.5 mg IVP Q4H PRN PRN Reason: Heart rate Last Admin: 05/27/18 09:06 Dose: 2.5 mg Vitamin B Complex/Vit C/Folic Acid (Nephro-Charlie) 1 tab PO 0800 [facility] Last Admin: 05/27/18 08:52 Dose: 1 tab - Labs Labs: 05/27/18 04:31 05/27/18 04:31 PT 19.5 SECONDS (9.7-12.2) H 05/21/18 09:52 INR 1.8 05/21/18 09:52 APTT 34 SECONDS (21-34) 05/21/18 09:52 - Head Exam Head Exam: ATRAUMATIC - Eye Exam Eye Exam: Normal appearance - ENT Exam ENT Exam: Mucous Membranes Dry - Respiratory Exam Respiratory Exam: Decreased Breath Sounds - Cardiovascular Exam Cardiovascular Exam: +S1, +S2 - GI/Abdominal Exam GI & Abdominal Exam: Normal Bowel Sounds - Extremities Exam Extremities Exam: Pedal Edema Assessment and Plan (1) Thrombocytopenia Assessment & Plan: 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
--- NOTE | 2018-05-27 19:43 | CP.PCM.PN ---
Subjective - Date & Time of Evaluation Date of Evaluation: 05/27/18 Time of Evaluation: 17:00 - Subjective Subjective: Fatigued, family at bedside Objective - Vital Signs/Intake and Output Vital Signs (last 24 hours): Temp Pulse Resp BP Pulse Ox 97.7 F 89 26 H 122/69 91 L 05/27/18 16:00 05/27/18 19:24 05/27/18 19:24 05/27/18 19:24 05/27/18 19:24 Intake and Output: 05/27/18 05/28/18 18:59 06:59 Intake Total 1000 Output Total 246 20 Balance 754 -20 - Medications Medications: Current Medications Acetaminophen (Tylenol 325mg Tab) 650 mg PO Q6 PRN PRN Reason: Fever >100.4 F Last Admin: 05/19/18 19:00 Dose: 650 mg Albuterol/Ipratropium (Duoneb 3 Mg/0.5 Mg (3 Ml) Ud) 3 ml INH RQ6 [facility] Last Admin: 05/27/18 14:07 Dose: Not Given Bumetanide (Bumex) 2 mg PO BID [facility] Last Admin: 05/27/18 18:08 Dose: 2 mg Enoxaparin Sodium (Lovenox) 30 mg SC DAILY [facility] Last Admin: 05/21/18 10:40 Dose: 30 mg Ergocalciferol (Drisdol 50,000 Intl Units Cap) 1 cap PO Q7D [facility] Last Admin: 05/21/18 11:56 Dose: 1 cap Ferrous Gluconate (Fergon) 324 mg PO TID [facility] Last Admin: 05/27/18 18:08 Dose: 324 mg Hydroxyurea (Hydrea) 500 mg PO BID [facility] Last Admin: 05/15/18 10:00 Dose: 500 mg Methylprednisolone (Solu-Medrol) 30 mg IV Q8H [facility] Last Admin: 05/27/18 12:17 Dose: 30 mg Pantoprazole Sodium (Protonix Ec Tab) 40 mg PO DAILY [facility] Last Admin: 05/27/18 09:02 Dose: 40 mg Sodium Bicarbonate (Sodium Bicarbonate Tab) 1,300 mg PO TID [facility] Last Admin: 05/27/18 18:08 Dose: 1,300 mg Tramadol HCl (Ultram) 25 mg NG TID PRN PRN Reason: Pain, severe (8-10) Last Admin: 05/27/18 08:53 Dose: 25 mg Verapamil HCl (Verapamil Inj) 2.5 mg IVP Q4H PRN PRN Reason: Heart rate Last Admin: 05/27/18 09:06 Dose: 2.5 mg Vitamin B Complex/Vit C/Folic Acid (Nephro-Charlie) 1 tab PO 0800 [facility] Last Admin: 05/27/18 08:52 Dose: 1 tab - Labs Labs: 05/27/18 04:31 05/27/18 04:31 PT 19.5 SECONDS (9.7-12.2) H 05/21/18 09:52 INR 1.8 05/21/18 09:52 APTT 34 SECONDS (21-34) 05/21/18 09:52 - Head Exam Head Exam: ATRAUMATIC - Eye Exam Eye Exam: Normal appearance - ENT Exam ENT Exam: Mucous Membranes Dry - Respiratory Exam Respiratory Exam: Decreased Breath Sounds - Cardiovascular Exam Cardiovascular Exam: +S1, +S2 - GI/Abdominal Exam GI & Abdominal Exam: Normal Bowel Sounds - Extremities Exam Extremities Exam: Pedal Edema Assessment and Plan (1) Thrombocytopenia Assessment & Plan: 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
--- NOTE | 2018-05-27 19:46 | CON ---
DATE: 05/16/2018 Urology consultation is requested by Dr. Clif Gutiérrez and Dr. Elena Gale. Urology consultation filled by Dr. Flor Irvin. REASON FOR CONSULTATION: Urinary tract infection. HISTORY: The patient is a 67-year-old female admitted with urinary tract infection. The patient was previously hospitalized with hydronephrosis and urinary tract infection. The patient was recently discharged; however, she was readmitted with fever and rigors. The patient was found to have urinary tract infection with bacteremia. The patient also had abdominal pain. The abdominal pain is located in the left upper quadrant, this is due to her splenic disease. The patient has history of right hydronephrosis. She earlier this month underwent cystoscopy and insertion of right ureteral stent. The patient has history of deep vein thrombosis. She had been on anticoagulation. The patient also had a episode of atrial fibrillation during the previous hospitalization. The patient reports that she voids with good urinary stream with good control. No recent hematuria or dysuria. The patient presented to the emergency room with fever. She was admitted to the ICU. Maximum temperature was 103 degrees Fahrenheit. The patient has history of myelodysplastic disease. During previous admission, she was found to have marked leukocytosis. 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 PHYSICAL EXAMINATION: GENERAL: The patient is well-developed, well-nourished middle-aged female. The patient is awake, alert. The patient reports that she is feeling better. ABDOMEN: Soft. There was moderate left-sided tenderness. Nondistended. BACK: No CVA tenderness. LABORATORY DATA: White blood count 15,000, hematocrit 31, platelet count is 106,000. BUN 80, creatinine 2.1. See further laboratory reports including urinalysis. IMPRESSION: Urinary tract infection, indwelling right ureteral stent. Right hydronephrosis. Myelodysplastic disease. Previous leukemoid reaction. RECOMMENDATIONS AND PLAN: As per ICU care. As per Infectious Disease. Continue antibiotic therapy. Further therapy to follow according to the patient's clinical course. The patient will need will need further urologic care including cystoscopy and retrograde pyelogram and possible ureteroscopy. Thank you for recommending the patient for urology consultation. Flor Irvin MD [facility] # [id number]
--- NOTE | 2018-05-27 21:30 | CP.PCM.PN ---
Subjective - Date & Time of Evaluation Date of Evaluation: 05/27/18 Time of Evaluation: 14:05 - Subjective Subjective: No new Cardiac events noted Physical Examination - Constitutional Appears: Non-toxic, No Acute Distress (on BIPAP), Chronically Ill - Head Exam Head Exam: ATRAUMATIC, NORMOCEPHALIC - Eye Exam Eye Exam: EOMI, PERRL - Respiratory Exam Respiratory Exam: NORMAL BREATHING PATTERN. absent: Respiratory Distress (on BIPAP) - Cardiovascular Exam Cardiovascular Exam: Tachycardia, +S1, +S2 - GI/Abdominal Exam GI & Abdominal Exam: Soft, Organomegaly (spleen). absent: Distended, Firm, Guarding, Rigid, Tenderness, Rebound - Extremities Exam Extremities Exam: Pedal Edema (trace). absent: Calf Tenderness - Back Exam Back Exam: absent: CVA tenderness (L), CVA tenderness (R) - Neurological Exam Neurological Exam: Alert, Awake - Skin Skin Exam: Dry, Warm Assessment and Plan - Assessment and Plan (Free Text) Assessment: 67F with splenomegaly, thrombocytopenia, and anemia s/p IR embolization Plan: Conservative medical management with comfort care Patient DNR/DNI Objective - Vital Signs/Intake and Output Vital Signs (last 24 hours): Temp Pulse Resp BP Pulse Ox 98.3 F 95 H 23 121/74 90 L 05/27/18 20:00 05/27/18 20:23 05/27/18 20:28 05/27/18 20:23 05/27/18 20:23 Intake and Output: 05/27/18 05/28/18 18:59 06:59 Intake Total 1000 100 Output Total 246 20 Balance 754 80 - Medications Medications: Current Medications Acetaminophen (Tylenol 325mg Tab) 650 mg PO Q6 PRN PRN Reason: Fever >100.4 F Last Admin: 05/19/18 19:00 Dose: 650 mg Albuterol/Ipratropium (Duoneb 3 Mg/0.5 Mg (3 Ml) Ud) 3 ml INH RQ6 [facility] Last Admin: 05/27/18 20:28 Dose: Not Given Bumetanide (Bumex) 2 mg PO BID [facility] Last Admin: 05/27/18 18:08 Dose: 2 mg Enoxaparin Sodium (Lovenox) 30 mg SC DAILY [facility] Last Admin: 05/21/18 10:40 Dose: 30 mg Ergocalciferol (Drisdol 50,000 Intl Units Cap) 1 cap PO Q7D [facility] Last Admin: 05/21/18 11:56 Dose: 1 cap Ferrous Gluconate (Fergon) 324 mg PO TID [facility] Last Admin: 05/27/18 18:08 Dose: 324 mg Hydroxyurea (Hydrea) 500 mg PO BID [facility] Last Admin: 05/15/18 10:00 Dose: 500 mg Methylprednisolone (Solu-Medrol) 30 mg IV Q8H [facility] Last Admin: 05/27/18 20:55 Dose: 30 mg Pantoprazole Sodium (Protonix Ec Tab) 40 mg PO DAILY [facility] Last Admin: 05/27/18 09:02 Dose: 40 mg Sodium Bicarbonate (Sodium Bicarbonate Tab) 1,300 mg PO TID [facility] Last Admin: 05/27/18 18:08 Dose: 1,300 mg Tramadol HCl (Ultram) 25 mg NG TID PRN PRN Reason: Pain, severe (8-10) Last Admin: 05/27/18 08:53 Dose: 25 mg Verapamil HCl (Verapamil Inj) 2.5 mg IVP Q4H PRN PRN Reason: Heart rate Last Admin: 05/27/18 09:06 Dose: 2.5 mg Vitamin B Complex/Vit C/Folic Acid (Nephro-Charlie) 1 tab PO 0800 [facility] Last Admin: 05/27/18 08:52 Dose: 1 tab - Labs Labs: 05/27/18 04:31 05/27/18 04:31 PT 19.5 SECONDS (9.7-12.2) H 05/21/18 09:52 INR 1.8 05/21/18 09:52 APTT 34 SECONDS (21-34) 05/21/18 09:52
[2018-05-28] MEDS: Albuterol-Ipratrop 3 mg / 0.5 (3 ml) UD INH SCH ×4 (01:16→19:00)
[2018-05-28] MEDS: MethylPREDNISolone 40 mg Vial IV SCH ×3 (03:44→20:30)
[2018-05-28 04:04] LABS: BASO # 0.9 K/uL (0.0-0.2); BASO % 1.2 % (0.0-2.0); EOS # 0.2 K/uL (0.0-0.7); EOS % 0.2 % (0.0-4.0); HEMOGLOBIN 12.8 g/dL (11.0-16.0); LYMPH # 2.1 K/uL (1.0-4.3); LYMPH % 2.7 % (20.0-40.0); MEAN CELL VOLUME 94.7 fL (81.0-99.0); MEAN CORPUSCULAR HEMOGLOBIN 29.1 pg (27.0-31.0); MEAN CORPUSCULAR HGB CONC 30.7 g/dL (33.0-37.0); MEAN PLATELET VOLUME 9.1 fL (7.2-11.7); MONO # 3.3 K/uL (0.0-0.8); MONO % 4.2 % (0.0-10.0); NEUT % 91.7 % (50.0-75.0); NRBC % 29.2 % (0.0-2.0); RBC 4.39 Mil/uL (3.80-5.20); RED CELL DISTRIBUTION WIDTH 19.3 % (11.5-14.5)
[2018-05-28 04:13] LABS: INR 2.1; PROTHROMBIN TIME 23.4 SECONDS (9.7-12.2)
[2018-05-28 04:18] LABS: PLATELET COUNT 17 K/uL (130-400); WHITE BLOOD COUNT 77.5 K/uL (4.8-10.8)
[2018-05-28 04:40] LABS: ALBUMIN 2.7 g/dL (3.5-5.0); CALCIUM 8.7 mg/dl (8.6-10.4)
[2018-05-28 07:53] LABS: BANDS 9 % (0-2); LYMPHOCYTE 2 % (20-40); METAMYELOCYTE 2 % (0-0); MONOCYTE 2 % (0-10); MYELOCYTE 1 % (0-0); NEUTROPHIL 84 % (50-75); NUCLEATED RED BLOOD CELL 76 % (0-0); TOTAL CELLS COUNTED 100
[2018-05-28 07:54] LABS: ANISOCYTOSIS SLIGHT; PLATELET ESTIMATE MARKEDLY DECREASED (NORMAL); POLYCHROMIC MODERATE
[2018-05-28 07:55] LABS: LARGE PLATELETS PRESENT
[2018-05-28] MEDS: Pantoprazole 40 mg EC Tab PO SCH (09:56)
[2018-05-28] MEDS: Multivitamin Vitamin B Complex (Nephro-Vite) Tab PO SCH (09:56)
[2018-05-28] MEDS: Ergocalciferol 50,000 Intl Units Cap PO SCH (11:00)
--- NOTE | 2018-05-28 12:50 | CP.PCM.PN ---
Subjective - Date & Time of Evaluation Date of Evaluation: 05/27/18 Time of Evaluation: 12:00 Objective - Vital Signs/Intake and Output Vital Signs (last 24 hours): Temp Pulse Resp BP Pulse Ox 96.1 F L 91 H 29 H 147/80 93 L 05/28/18 11:00 05/28/18 11:00 05/28/18 11:00 05/28/18 11:00 05/28/18 09:22 Intake and Output: 05/28/18 05/28/18 06:59 18:59 Intake Total 399 339 Output Total 160 40 Balance 239 299 - Medications Medications: Current Medications Acetaminophen (Tylenol 325mg Tab) 650 mg PO Q6 PRN PRN Reason: Fever >100.4 F Last Admin: 05/19/18 19:00 Dose: 650 mg Albuterol/Ipratropium (Duoneb 3 Mg/0.5 Mg (3 Ml) Ud) 3 ml INH RQ6 [facility] Last Admin: 05/28/18 08:25 Dose: Not Given Bumetanide (Bumex) 2 mg PO BID [facility] Last Admin: 05/28/18 09:57 Dose: 2 mg Enoxaparin Sodium (Lovenox) 30 mg SC DAILY [facility] Last Admin: 05/21/18 10:40 Dose: 30 mg Ergocalciferol (Drisdol 50,000 Intl Units Cap) 1 cap PO Q7D [facility] Last Admin: 05/21/18 11:56 Dose: 1 cap Ferrous Gluconate (Fergon) 324 mg PO TID [facility] Last Admin: 05/28/18 09:57 Dose: 324 mg Hydroxyurea (Hydrea) 500 mg PO BID [facility] Last Admin: 05/15/18 10:00 Dose: 500 mg Methylprednisolone (Solu-Medrol) 30 mg IV Q8H [facility] Last Admin: 05/28/18 03:44 Dose: 30 mg Pantoprazole Sodium (Protonix Ec Tab) 40 mg PO DAILY [facility] Last Admin: 05/28/18 09:56 Dose: 40 mg Sodium Bicarbonate (Sodium Bicarbonate Tab) 1,300 mg PO TID [facility] Last Admin: 05/28/18 09:56 Dose: 1,300 mg Tramadol HCl (Ultram) 25 mg NG TID PRN PRN Reason: Pain, severe (8-10) Last Admin: 05/27/18 08:53 Dose: 25 mg Verapamil HCl (Verapamil Inj) 2.5 mg IVP Q4H PRN PRN Reason: Heart rate Last Admin: 05/27/18 09:06 Dose: 2.5 mg Vitamin B Complex/Vit C/Folic Acid (Nephro-Charlie) 1 tab PO 0800 [facility] Last Admin: 05/28/18 09:56 Dose: 1 tab - Labs Labs: 05/28/18 03:58 05/28/18 03:58 PT 23.4 SECONDS (9.7-12.2) H 05/28/18 03:58 INR 2.1 05/28/18 03:58 APTT 38 SECONDS (21-34) H 05/28/18 03:58
--- NOTE | 2018-05-28 12:57 | CP.PCM.PN ---
Subjective - Date & Time of Evaluation Date of Evaluation: 05/27/18 Time of Evaluation: 16:00 - Subjective Subjective: Resident Progress Note for Dr. Jackson INFECTIOUS DISEASE ICU#2 PROGRESS NOTES JANY JACKSON MD, FACP 05/27/2018 CHART REVIEWD PT EXAMINED CASE DISCUSSED Patient examined at bedside. Patient's condition appears unchanged from day prior. Discussed with patient's daughter concerning placement of dialysis catheter and hemodialysis, including risks and benefits. Patient's daughter expressed understanding. Avycaz and flagyl have been discontinued. Objective - Vital Signs/Intake and Output Vital Signs (last 24 hours): Temp Pulse Resp BP Pulse Ox 96.1 F L 91 H 29 H 147/80 93 L 05/28/18 11:00 05/28/18 11:00 05/28/18 11:00 05/28/18 11:00 05/28/18 09:22 Intake and Output: 05/28/18 05/28/18 06:59 18:59 Intake Total 399 339 Output Total 160 40 Balance 239 299 - Medications Medications: Current Medications Acetaminophen (Tylenol 325mg Tab) 650 mg PO Q6 PRN PRN Reason: Fever >100.4 F Last Admin: 05/19/18 19:00 Dose: 650 mg Albuterol/Ipratropium (Duoneb 3 Mg/0.5 Mg (3 Ml) Ud) 3 ml INH RQ6 [facility] Last Admin: 05/28/18 08:25 Dose: Not Given Bumetanide (Bumex) 2 mg PO BID [facility] Last Admin: 05/28/18 09:57 Dose: 2 mg Enoxaparin Sodium (Lovenox) 30 mg SC DAILY [facility] Last Admin: 05/21/18 10:40 Dose: 30 mg Ergocalciferol (Drisdol 50,000 Intl Units Cap) 1 cap PO Q7D [facility] Last Admin: 05/21/18 11:56 Dose: 1 cap Ferrous Gluconate (Fergon) 324 mg PO TID [facility] Last Admin: 05/28/18 09:57 Dose: 324 mg Hydroxyurea (Hydrea) 500 mg PO BID [facility] Last Admin: 05/15/18 10:00 Dose: 500 mg Methylprednisolone (Solu-Medrol) 30 mg IV Q8H [facility] Last Admin: 05/28/18 03:44 Dose: 30 mg Pantoprazole Sodium (Protonix Ec Tab) 40 mg PO DAILY [facility] Last Admin: 05/28/18 09:56 Dose: 40 mg Sodium Bicarbonate (Sodium Bicarbonate Tab) 1,300 mg PO TID [facility] Last Admin: 05/28/18 09:56 Dose: 1,300 mg Tramadol HCl (Ultram) 25 mg NG TID PRN PRN Reason: Pain, severe (8-10) Last Admin: 05/27/18 08:53 Dose: 25 mg Verapamil HCl (Verapamil Inj) 2.5 mg IVP Q4H PRN PRN Reason: Heart rate Last Admin: 05/27/18 09:06 Dose: 2.5 mg Vitamin B Complex/Vit C/Folic Acid (Nephro-Charlie) 1 tab PO 0800 [facility] Last Admin: 05/28/18 09:56 Dose: 1 tab - Labs Labs: 05/28/18 03:58 05/28/18 03:58 PT 23.4 SECONDS (9.7-12.2) H 05/28/18 03:58 INR 2.1 05/28/18 03:58 APTT 38 SECONDS (21-34) H 05/28/18 03:58 - Head Exam Head Exam: ATRAUMATIC, NORMAL INSPECTION - Eye Exam Eye Exam: EOMI, PERRL - ENT Exam ENT Exam: Mucous Membranes Moist - Neck Exam Neck Exam: Normal Inspection - Respiratory Exam Respiratory Exam: NORMAL BREATHING PATTERN - Cardiovascular Exam Cardiovascular Exam: Tachycardia, RRR, +S1, +S2 - GI/Abdominal Exam GI & Abdominal Exam: Distended, Tenderness (diffuse) - Extremities Exam Extremities Exam: Normal Inspection, Pedal Edema - Neurological Exam Neurological Exam: Alert, Awake, Oriented x3 - Psychiatric Exam Psychiatric exam: Anxious - Skin Skin Exam: Dry, Intact
--- NOTE | 2018-05-28 13:16 | CP.CCUPN ---
<Haley Meza L - Last Filed: 05/28/18 13:17> CCU Subjective - Physician Review Subjective (Free Text): Resident Critical Care Progress Note Patient examined at bedside. No acute events overnight. Patient to receive permacath placement and hemodialysis after platelet transfusion. Critical Care Time Spent (in minutes): 35 CCU Objective - Vital Signs / Intake & Output Vital Signs (Last 4 hours): Vital Signs Temp Pulse Resp BP Pulse Ox 05/28/18 11:00 96.1 F L 91 H 29 H 147/80 05/28/18 10:30 96.6 F L 90 28 H 143/83 05/28/18 10:00 96.6 F L 91 H 31 H 156/80 H 05/28/18 09:28 96.4 F L 94 H 31 H 138/79 05/28/18 09:22 98 H 28 H 145/78 93 L 05/28/18 09:15 96 H 19 92 L Intake and Output (Last 8hrs): Intake & Output 05/27/18 05/28/18 05/28/18 22:59 06:59 14:59 Intake Total 499 100 339 Output Total 170 100 40 Balance 329 0 299 Intake: Oral 300 100 60 Blood Product 199 279 Apheresis Plts Acda Lr 199 1st Con Unit [id number] Apheresis Plts Acda Lr 199 Irr 3rd Unit [id number] Output: Urine 170 100 40 Urethral (Addison) 170 100 40 Emesis 0 Other: # Bowel Movements 1 0 - Physical Exam Head: Positive for: Atraumatic, Normocephalic Pupils: Positive for: PERRL Extroacular Muscles: Positive for: EOMI Conjunctiva: Positive for: Normal Ears: Positive for: Normal Mouth: Positive for: Moist Mucous Membranes Nose (External): Positive for: Atraumatic Neck: Positive for: Normal Range of Motion Respiratory/Chest: Positive for: Good Air Exchange, Rhonchi. Negative for: Respiratory Distress Cardiovascular: Positive for: Regular Rate and Rhythm, Normal S1, S2, Tachycardic Abdomen: Positive for: Tenderness (diffuse ), Distention. Negative for: Peritoneal Signs, Rebound Upper Extremity: Positive for: Normal Inspection. Negative for: Cyanosis, Edema Lower Extremity: Positive for: Normal Inspection, Edema. Negative for: CALF TENDERNESS Neurological: Positive for: GCS=15, CN II-XII Intact, Speech Normal Skin: Positive for: Dry, Normal Color. Negative for: Rashes Psychiatric: Positive for: Alert, Oriented x 3, Anxious - Medications Active Medications: Active Medications Generic Name Dose Route Start Last Admin Trade Name Freq PRN Reason Stop Dose Admin Acetaminophen 650 mg 05/15/18 08:56 05/19/18 19:00 Tylenol 325mg Tab PO 650 mg Q6 PRN Administration Fever >100.4 F Albuterol/Ipratropium 3 ml 05/15/18 12:00 05/28/18 08:25 Duoneb 3 Mg/0.5 Mg (3 Ml) Ud INH Not Given RQ6 NAN Bumetanide 2 mg 05/24/18 18:00 05/28/18 09:57 Bumex PO 2 mg BID NAN Administration Enoxaparin Sodium 30 mg 05/15/18 10:00 05/21/18 10:40 Lovenox SC 30 mg DAILY NAN Administration Ergocalciferol 1 cap 05/21/18 11:00 05/21/18 11:56 Drisdol 50,000 Intl Units Cap PO 1 cap Q7D NAN Administration Ferrous Gluconate 324 mg 05/21/18 14:00 05/28/18 09:57 Fergon PO 324 mg TID NAN Administration Hydroxyurea 500 mg 05/15/18 10:00 05/15/18 10:00 Hydrea PO 500 mg BID NAN Administration Methylprednisolone 30 mg 05/24/18 12:15 05/28/18 03:44 Solu-Medrol IV 30 mg Q8H NAN Administration Pantoprazole Sodium 40 mg 05/23/18 10:00 05/28/18 09:56 Protonix Ec Tab PO 40 mg DAILY NAN Administration Sodium Bicarbonate 1,300 mg 05/24/18 14:00 05/28/18 09:56 Sodium Bicarbonate Tab PO 1,300 mg TID NAN Administration Tramadol HCl 25 mg 05/22/18 07:16 05/27/18 08:53 Ultram NG 25 mg TID PRN Administration Pain, severe (8-10) Verapamil HCl 2.5 mg 05/24/18 07:25 05/27/18 09:06 Verapamil Inj IVP 2.5 mg Q4H PRN Administration Heart rate Vitamin B Complex/Vit C/Folic Acid 1 tab 05/22/18 08:00 05/28/18 09:56 Nephro-Charlie PO 1 tab 0800 NAN Administration - Patient Studies Lab Studies: Lab Studies 05/28/18 05/28/18 05/28/18 Range/Units 03:58 03:58 03:58 WBC 77.5 H* (4.8-10.8) K/uL RBC 4.39 (3.80-5.20) Mil/uL Hgb 12.8 (11.0-16.0) g/dL Hct 41.6 (34.0-47.0) % MCV 94.7 (81.0-99.0) fL MCH 29.1 (27.0-31.0) pg MCHC 30.7 L (33.0-37.0) g/dL RDW 19.3 H (11.5-14.5) % Plt Count 17 L* D (130-400) K/uL MPV 9.1 (7.2-11.7) fL Neut % (Auto) 91.7 H (50.0-75.0) % Lymph % (Auto) 2.7 L (20.0-40.0) % Dare % (Auto) 4.2 (0.0-10.0) % Eos % (Auto) 0.2 (0.0-4.0) % Baso % (Auto) 1.2 (0.0-2.0) % Neut # (Auto) 71.0 H (1.8-7.0) K/uL Lymph # (Auto) 2.1 (1.0-4.3) K/uL Dare # (Auto) 3.3 H (0.0-0.8) K/uL Eos # (Auto) 0.2 (0.0-0.7) K/uL Baso # (Auto) 0.9 H (0.0-0.2) K/uL Neutrophils % (Manual) 84 H (50-75) % Band Neutrophils % 9 H (0-2) % Lymphocytes % (Manual) 2 L (20-40) % Monocytes % (Manual) 2 (0-10) % Metamyelocytes % 2 H (0-0) % Myelocytes % 1 H (0-0) % Nucleated RBC % 76 H (0-0) % Platelet Estimate Markedly decreased L (NORMAL) Large Platelets Present Polychromasia Moderate Anisocytosis (manual) Slight Macrocytosis (manual) Moderate PT 23.4 H (9.7-12.2) SECONDS INR 2.1 APTT 38 H (21-34) SECONDS Sodium 140 (132-148) mmol/L Potassium 4.4 (3.6-5.2) mmol/L Chloride 105 (98-107) mmol/L Carbon Dioxide 17 L (22-30) mmol/L Anion Gap 22 H (10-20) BUN 153 H* (7-17) mg/dL Creatinine 2.9 H (0.7-1.2) mg/dL Est GFR ( Amer) 20 Est GFR (Non-Af Amer) 16 Random Glucose 164 H (65-105) mg/dL Calcium 8.7 (8.6-10.4) mg/dl Phosphorus 5.4 H (2.5-4.5) mg/dL Magnesium 2.2 (1.6-2.3) mg/dL Total Bilirubin 1.4 H (0.2-1.3) mg/dL AST 19 (14-36) U/L ALT 30 (9-52) U/L Alkaline Phosphatase 78 (38-126) U/L Total Protein 5.5 L (6.3-8.3) g/dL Albumin 2.7 L (3.5-5.0) g/dL Globulin 2.8 (2.2-3.9) gm/dL Albumin/Globulin Ratio 1.0 (1.0-2.1) Laboratory Results - last 24 hr 05/28/18 05/28/18 05/28/18 03:58 03:58 03:58 WBC 77.5 H* RBC 4.39 Hgb 12.8 Hct 41.6 MCV 94.7 MCH 29.1 MCHC 30.7 L RDW 19.3 H Plt Count 17 L* D MPV 9.1 Neut % (Auto) 91.7 H Lymph % (Auto) 2.7 L Dare % (Auto) 4.2 Eos % (Auto) 0.2 Baso % (Auto) 1.2 Neut # (Auto) 71.0 H Lymph # (Auto) 2.1 Dare # (Auto) 3.3 H Eos # (Auto) 0.2 Baso # (Auto) 0.9 H Neutrophils % (Manual) 84 H Band Neutrophils % 9 H Lymphocytes % (Manual) 2 L Monocytes % (Manual) 2 Metamyelocytes % 2 H Myelocytes % 1 H Nucleated RBC % 76 H Platelet Estimate Markedly decreased L Large Platelets Present Polychromasia Moderate Anisocytosis (manual) Slight Macrocytosis (manual) Moderate PT 23.4 H INR 2.1 APTT 38 H Sodium 140 Potassium 4.4 Chloride 105 Carbon Dioxide 17 L Anion Gap 22 H BUN 153 H* Creatinine 2.9 H Est GFR ( Amer) 20 Est GFR (Non-Af Amer) 16 Random Glucose 164 H Calcium 8.7 Phosphorus 5.4 H Magnesium 2.2 Total Bilirubin 1.4 H AST 19 ALT 30 Alkaline Phosphatase 78 Total Protein 5.5 L Albumin 2.7 L Globulin 2.8 Albumin/Globulin Ratio 1.0 Critical Care Progress Note - Nutrition Nutrition: Nutrition Category Date Time Status NPO Diet [DIET] Diets 05/28/18 Lunch Active Assessment/Plan - Assessment and Plan (Free Text) Assessment: 67 year old female with a PMHx of myelofibrosis, HTN, renal insufficiency admitted with fever and UTI. 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 On previous admission patient had splenic embolization. Plan: Neuro: - AAO x3 Pulm: - nasal cannula as tolerated - Duonebs 3 ml INH RQ6 CV: - currently hemodynamically stable - Verapamil 2.5 mg IV Q4H PRN GI: - s/p IR splenic artery embolization, now with inflammatory infarcting spleen. Morbidity is now high. family does not want splenectomy - Pepcid 20mg PO daily - methylprednisolone 30 mg IV Q8H Renal: - SOFIA, oliguria - Nephrology Dr. Wylie consulted. Recs appreciated. - Bumex 2 mg PO BID ID: - ID Dr. Jackson consulted. Recs appreciated. - Was on Avycaz and metronidazole Heme/Onc - Hx of myelofibrosis with chronic leukocytosis - Dr. Mcbride consulted. Recs appreciated. - Holding Hydrea, Jakafi - Ferrous gluconate 324 mg PO TID Endo: - Maintain euglycemia PPX: Protonix 40 mg PO daily, Lovenox 30 mg SC daily held Case and plan was reviewed and discussed with Dr. Kareem Meza PGY-1 - Date & Time Date: 05/28/18 Time: 08:00 <Kareem,Enmanuel S - Last Filed: 05/28/18 18:35> CCU Objective - Vital Signs / Intake & Output Vital Signs (Last 4 hours): Vital Signs Temp Pulse Pulse Resp BP BP Pulse Ox 05/28/18 18:15 96/57 L 05/28/18 17:45 93/59 L 05/28/18 17:32 96 H 31 H 158/85 H 05/28/18 17:30 92/56 L 05/28/18 17:15 104/66 05/28/18 17:02 101 H 37 H 96/65 L 91 L 05/28/18 17:00 103 H 34 H 117/73 91 L 05/28/18 16:58 102 H 36 H 117/73 92 L 05/28/18 16:45 97.5 F L 87 96 H 26 H 159/77 H 92 L 05/28/18 16:43 91 H 27 H 159/77 H 91 L 05/28/18 16:30 97.5 F L 93 H 31 H 158/85 H 92 L 05/28/18 16:28 94 H 29 H 158/85 H 92 L 05/28/18 16:15 95 H 32 H 91 L 05/28/18 16:13 89 30 H 149/78 92 L 05/28/18 16:00 96.6 F L 92 H 30 H 93 L 05/28/18 15:45 96 H 29 H 93 L 05/28/18 15:30 91 H 28 H 93 L 05/28/18 15:15 95 H 35 H 92 L 05/28/18 15:12 140/82 05/28/18 15:00 90 32 H 92 L 05/28/18 14:45 94 H 31 H 92 L Intake and Output (Last 8hrs): Intake & Output 05/28/18 05/28/18 05/28/18 06:59 14:59 22:59 Intake Total 100 559 40 Output Total 100 85 50 Balance 0 474 -10 Weight 88 lb 14.4 oz Intake: Oral 100 160 40 Blood Product 399 Apheresis Plts Acda Lr 199 1st Con Unit [id number] Output: Urine 100 85 50 Urethral (Addison) 100 85 50 Emesis 0 0 Other: # Bowel Movements 1 0 0 - Medications Active Medications: Active Medications Generic Name Dose Route Start Last Admin Trade Name Freq PRN Reason Stop Dose Admin Acetaminophen 650 mg 05/15/18 08:56 05/19/18 19:00 Tylenol 325mg Tab PO 650 mg Q6 PRN Administration Fever >100.4 F Albuterol/Ipratropium 3 ml 05/15/18 12:00 05/28/18 13:48 Duoneb 3 Mg/0.5 Mg (3 Ml) Ud INH Not Given RQ6 NAN Enoxaparin Sodium 30 mg 05/15/18 10:00 05/21/18 10:40 Lovenox SC 30 mg DAILY NAN Administration Ergocalciferol 1 cap 05/21/18 11:00 05/21/18 11:56 Drisdol 50,000 Intl Units Cap PO 1 cap Q7D NAN Administration Ferrous Gluconate 324 mg 05/21/18 14:00 05/28/18 13:05 Fergon PO Not Given TID NAN Hydroxyurea 500 mg 05/15/18 10:00 05/15/18 10:00 Hydrea PO 500 mg BID NAN Administration Methylprednisolone 30 mg 05/24/18 12:15 05/28/18 14:24 Solu-Medrol IV 30 mg Q8H NAN Administration Pantoprazole Sodium 40 mg 05/23/18 10:00 05/28/18 09:56 Protonix Ec Tab PO 40 mg DAILY NAN Administration Tramadol HCl 25 mg 05/22/18 07:16 05/27/18 08:53 Ultram NG 25 mg TID PRN Administration Pain, severe (8-10) Verapamil HCl 2.5 mg 05/24/18 07:25 05/27/18 09:06 Verapamil Inj IVP 2.5 mg Q4H PRN Administration Heart rate Vitamin B Complex/Vit C/Folic Acid 1 tab 05/22/18 08:00 05/28/18 09:56 Nephro-Charlie PO 1 tab 0800 NAN Administration - Patient Studies Lab Studies: Lab Studies 05/28/18 05/28/18 05/28/18 Range/Units 17:03 03:58 03:58 WBC (4.8-10.8) K/uL RBC (3.80-5.20) Mil/uL Hgb (11.0-16.0) g/dL Hct (34.0-47.0) % MCV (81.0-99.0) fL MCH (27.0-31.0) pg MCHC (33.0-37.0) g/dL RDW (11.5-14.5) % Plt Count (130-400) K/uL MPV (7.2-11.7) fL Neut % (Auto) (50.0-75.0) % Lymph % (Auto) (20.0-40.0) % Dare % (Auto) (0.0-10.0) % Eos % (Auto) (0.0-4.0) % Baso % (Auto) (0.0-2.0) % Neut # (Auto) (1.8-7.0) K/uL Lymph # (Auto) (1.0-4.3) K/uL Dare # (Auto) (0.0-0.8) K/uL Eos # (Auto) (0.0-0.7) K/uL Baso # (Auto) (0.0-0.2) K/uL Neutrophils % (Manual) (50-75) % Band Neutrophils % (0-2) % Lymphocytes % (Manual) (20-40) % Monocytes % (Manual) (0-10) % Metamyelocytes % (0-0) % Myelocytes % (0-0) % Nucleated RBC % (0-0) % Platelet Estimate (NORMAL) Large Platelets Polychromasia Anisocytosis (manual) Macrocytosis (manual) PT 23.4 H (9.7-12.2) SECONDS INR 2.1 APTT 38 H (21-34) SECONDS Sodium 140 (132-148) mmol/L Potassium 4.4 (3.6-5.2) mmol/L Chloride 105 (98-107) mmol/L Carbon Dioxide 17 L (22-30) mmol/L Anion Gap 22 H (10-20) BUN 153 H* (7-17) mg/dL Creatinine 2.9 H (0.7-1.2) mg/dL Est GFR ( Amer) 20 Est GFR (Non-Af Amer) 16 Random Glucose 164 H (65-105) mg/dL Calcium 8.7 (8.6-10.4) mg/dl Phosphorus 5.4 H (2.5-4.5) mg/dL Magnesium 2.2 (1.6-2.3) mg/dL Total Bilirubin 1.4 H (0.2-1.3) mg/dL AST 19 (14-36) U/L ALT 30 (9-52) U/L Alkaline Phosphatase 78 (38-126) U/L Total Protein 5.5 L (6.3-8.3) g/dL Albumin 2.7 L (3.5-5.0) g/dL Globulin 2.8 (2.2-3.9) gm/dL Albumin/Globulin Ratio 1.0 (1.0-2.1) Hep Bs Antigen Negative (NEGATIVE) Hep B Core IgM Ab Negative (NEGATIVE) Hepatitis C Antibody Negative (NEGATIVE) 05/28/18 Range/Units 03:58 WBC 77.5 H* (4.8-10.8) K/uL RBC 4.39 (3.80-5.20) Mil/uL Hgb 12.8 (11.0-16.0) g/dL Hct 41.6 (34.0-47.0) % MCV 94.7 (81.0-99.0) fL MCH 29.1 (27.0-31.0) pg MCHC 30.7 L (33.0-37.0) g/dL RDW 19.3 H (11.5-14.5) % Plt Count 17 L* D (130-400) K/uL MPV 9.1 (7.2-11.7) fL Neut % (Auto) 91.7 H (50.0-75.0) % Lymph % (Auto) 2.7 L (20.0-40.0) % Dare % (Auto) 4.2 (0.0-10.0) % Eos % (Auto) 0.2 (0.0-4.0) % Baso % (Auto) 1.2 (0.0-2.0) % Neut # (Auto) 71.0 H (1.8-7.0) K/uL Lymph # (Auto) 2.1 (1.0-4.3) K/uL Dare # (Auto) 3.3 H (0.0-0.8) K/uL Eos # (Auto) 0.2 (0.0-0.7) K/uL Baso # (Auto) 0.9 H (0.0-0.2) K/uL Neutrophils % (Manual) 84 H (50-75) % Band Neutrophils % 9 H (0-2) % Lymphocytes % (Manual) 2 L (20-40) % Monocytes % (Manual) 2 (0-10) % Metamyelocytes % 2 H (0-0) % Myelocytes % 1 H (0-0) % Nucleated RBC % 76 H (0-0) % Platelet Estimate Markedly decreased L (NORMAL) Large Platelets Present Polychromasia Moderate Anisocytosis (manual) Slight Macrocytosis (manual) Moderate PT (9.7-12.2) SECONDS INR APTT (21-34) SECONDS Sodium (132-148) mmol/L Potassium (3.6-5.2) mmol/L Chloride (98-107) mmol/L Carbon Dioxide (22-30) mmol/L Anion Gap (10-20) BUN (7-17) mg/dL Creatinine (0.7-1.2) mg/dL Est GFR ( Amer) Est GFR (Non-Af Amer) Random Glucose (65-105) mg/dL Calcium (8.6-10.4) mg/dl Phosphorus (2.5-4.5) mg/dL Magnesium (1.6-2.3) mg/dL Total Bilirubin (0.2-1.3) mg/dL AST (14-36) U/L ALT (9-52) U/L Alkaline Phosphatase (38-126) U/L Total Protein (6.3-8.3) g/dL Albumin (3.5-5.0) g/dL Globulin (2.2-3.9) gm/dL Albumin/Globulin Ratio (1.0-2.1) Hep Bs Antigen (NEGATIVE) Hep B Core IgM Ab (NEGATIVE) Hepatitis C Antibody (NEGATIVE) Laboratory Results - last 24 hr 05/28/18 05/28/18 05/28/18 03:58 03:58 03:58 WBC 77.5 H* RBC 4.39 Hgb 12.8 Hct 41.6 MCV 94.7 MCH 29.1 MCHC 30.7 L RDW 19.3 H Plt Count 17 L* D MPV 9.1 Neut % (Auto) 91.7 H Lymph % (Auto) 2.7 L Dare % (Auto) 4.2 Eos % (Auto) 0.2 Baso % (Auto) 1.2 Neut # (Auto) 71.0 H Lymph # (Auto) 2.1 Dare # (Auto) 3.3 H Eos # (Auto) 0.2 Baso # (Auto) 0.9 H Neutrophils % (Manual) 84 H Band Neutrophils % 9 H Lymphocytes % (Manual) 2 L Monocytes % (Manual) 2 Metamyelocytes % 2 H Myelocytes % 1 H Nucleated RBC % 76 H Platelet Estimate Markedly decreased L Large Platelets Present Polychromasia Moderate Anisocytosis (manual) Slight Macrocytosis (manual) Moderate PT 23.4 H INR 2.1 APTT 38 H Sodium 140 Potassium 4.4 Chloride 105 Carbon Dioxide 17 L Anion Gap 22 H BUN 153 H* Creatinine 2.9 H Est GFR ( Amer) 20 Est GFR (Non-Af Amer) 16 Random Glucose 164 H Calcium 8.7 Phosphorus 5.4 H Magnesium 2.2 Total Bilirubin 1.4 H AST 19 ALT 30 Alkaline Phosphatase 78 Total Protein 5.5 L Albumin 2.7 L Globulin 2.8 Albumin/Globulin Ratio 1.0 Hep Bs Antigen Hep B Core IgM Ab Hepatitis C Antibody 05/28/18 17:03 WBC RBC Hgb Hct MCV MCH MCHC RDW Plt Count MPV Neut % (Auto) Lymph % (Auto) Dare % (Auto) Eos % (Auto) Baso % (Auto) Neut # (Auto) Lymph # (Auto) Dare # (Auto) Eos # (Auto) Baso # (Auto) Neutrophils % (Manual) Band Neutrophils % Lymphocytes % (Manual) Monocytes % (Manual) Metamyelocytes % Myelocytes % Nucleated RBC % Platelet Estimate Large Platelets Polychromasia Anisocytosis (manual) Macrocytosis (manual) PT INR APTT Sodium Potassium Chloride Carbon Dioxide Anion Gap BUN Creatinine Est GFR ( Amer) Est GFR (Non-Af Amer) Random Glucose Calcium Phosphorus Magnesium Total Bilirubin AST ALT Alkaline Phosphatase Total Protein Albumin Globulin Albumin/Globulin Ratio Hep Bs Antigen Negative Hep B Core IgM Ab Negative Hepatitis C Antibody Negative Critical Care Progress Note - Nutrition Nutrition: Nutrition Category Date Time Status NPO Diet [DIET] Diets 05/28/18 Lunch Active Attending/Attestation - Attestation I have personally seen and examined this patient.: Yes I have fully participated in the care of the patient.: Yes I have reviewed all pertinent clinical information: Yes Notes (Text): 05/28/18 18:35 patient seen and examined in the intensive care unit Transfuse platelets Hemodialysis Continue present treatment
--- NOTE | 2018-05-28 13:53 | PCM.SURG1 ---
Surgeon's Initial Post Op Note - Surgeon's Notes Surgeon: citlaly Curriculum Facilitator: severiano alatorre Type of Anesthesia: Local Anesthesia Administered By: me Pre-Operative Diagnosis: same Operative Findings: renal failure Post-Operative Diagnosis: same Operation Performed: right femoral uldall with micropuncture and us guidance Specimen/Specimens Removed: - Estimated Blood Loss: EBL {In ML}: 5 Blood Products Given: N/A Drains Used: No Drains Post-Op Condition: Good Date of Surgery/Procedure: 05/28/18 Time of Surgery/Procedure: 13:52
--- NOTE | 2018-05-28 15:03 | CP.PCM.PN ---
Subjective - Date & Time of Evaluation Date of Evaluation: 05/28/18 Time of Evaluation: 15:02 - Subjective Subjective: Nephrology Consultation Note: Assessment: critical Non-oliguric Acute Kidney Injury (N17.9) likely due to ATN/sepsis with UTI, low BP, pre-renal state Metabolic acidosis, Hyponatremia Hypertensive Chronic Kidney Disease (I12.9) Chronic Kidney Disease (N18.3) Stage 3 with ? mg proteinuria myelofibrosis with hepatosplenomegaly and extensive varices, anemia/thrombocytopenia atrial fibrillation, right lower extremity DVT on anticoagulant developed Splenic hemorrhage s/p splenic artery embolization now with splenic infarction right hydronephrosis/pyelonephritis and Ureteral stricture s/p stent A fib with RVR Plan d/w family including daughter. explained need for dialysis initiation, pro/cons of HD, family agreed for dialysis. plan for HD initiation once dialysis access in place Maintain hemodynamics stable. Avoid hypotension. Patient not on ACEI/ARB due to recent SOFIA Monitor Input/Output, daily weights and renal function with basic metabolic panel d/c sodium bicarb IV albumin 100 gram given bladder pressure: 16 cm H2O anemia management as per heme: started iron and MVI. PRBC 2 unit 05/21/18. hold epogen as Hb 11.9 started weekly ergocalciferol d/c bumex surgery, ID and heme following Dose meds/antibiotics for reduced GFR. Avoid fleets enema/magnesium based laxatives. Avoid nephrotoxins/NSAIDs/ iodinated contrast (unless needed emergently) Glycemic control Further work up/management as per primary team Thanks for allowing me to participate in care of your patient. Will follow patient with you. Please call if any Qs. d/w team and family Dr Espinoza Wylie Office: [phone] Chief Complaint; pain abdomen Reason for consult: Acute Kidney Injury HPI: Pt is a 67 F with hx of HTN,myelofibrosis admitted recently in april with right flank pain, right hydronephrosis/pyelonephritis and Ureteral stricture s/p stent, hospital course was complicated by atrial fibrillation, r ight lower extremity DVT on anticoagulant developed Splenic hemorrhage s/p splenic artery embolization, hence systemic a/c was stopped. pt also with hepatosplenomegaly and extensive varices, anemia/thrombocytopenia admitted with sepsis with kelbsiella due to UTI pt also with CKD stage 3 with baseline cr 1.8-2.0 since hospitalization with AKIs Denies OTC/herbal meds or NSAIDs No recent iodinated contrast exposure. Noted obvious episodes of low BP. son bedside and helped in interpretations pt not good historian. ROS: limited ROS. pt with poor oral intake. s/p platelet transfusion but Plat counts keep going down Physical Examination: General Appearance: comfortable, in no acute respiratory distress, co-operative . ill appearing Vitals reviewed and noted as below Head; Atraumatic, normocephalic ENT: no ulcers no thrush. Tongue is midline. Oropharynx: no rash or ulcers. EYES: Pupils are equal, round and reactive to light accommodation. Eye muscles and extraocular movement intact. Sclera is anicteric. Neck; supple no lymphadenopathy, no thyromegaly or bruit Lungs: normal respiratory rate/effort. Breath sounds bilateral equal and few rales + Heart: Normal rate. s1s2 normal. No rub or gallop. Extremities: 2+ edema. No varicose veins Neurological: Patient is sleeping Skin: Warm and dry. Normal turgor. No rash. Palpitation: Normal elasticity for age Abdomen: Abdomen is soft. Bowel sounds +. There is improved abdominal tenderness without guarding no rigidity no organomegaly Psych: limited insight and normal affect/mood MSK: no joint tenderness or swelling. Digits and nails normal, no deformity : kidney or bladder not palpable Labs/imaging reviewed. Past medical history, past surgical history, family history, social history, allergy reviewed and noted as below Family hx: no hx of CKD. Rest non-contributory echo moderate pHTN, normal LVEF UA 2+ protein 3+ blood TRACEY/ANCA and Hep B/C neg Fena 0.5% Objective - Vital Signs/Intake and Output Vital Signs (last 24 hours): Temp Pulse Resp BP Pulse Ox 96.6 F L 99 H 36 H 152/80 H 92 L 05/28/18 12:00 05/28/18 14:30 05/28/18 14:30 05/28/18 14:13 05/28/18 14:30 Intake and Output: 05/28/18 05/28/18 06:59 18:59 Intake Total 399 559 Output Total 160 85 Balance 239 474 - Medications Medications: Current Medications Acetaminophen (Tylenol 325mg Tab) 650 mg PO Q6 PRN PRN Reason: Fever >100.4 F Last Admin: 05/19/18 19:00 Dose: 650 mg Albuterol/Ipratropium (Duoneb 3 Mg/0.5 Mg (3 Ml) Ud) 3 ml INH RQ6 [facility] Last Admin: 05/28/18 13:48 Dose: Not Given Bumetanide (Bumex) 2 mg PO BID [facility] Last Admin: 05/28/18 09:57 Dose: 2 mg Enoxaparin Sodium (Lovenox) 30 mg SC DAILY [facility] Last Admin: 05/21/18 10:40 Dose: 30 mg Ergocalciferol (Drisdol 50,000 Intl Units Cap) 1 cap PO Q7D [facility] Last Admin: 05/21/18 11:56 Dose: 1 cap Ferrous Gluconate (Fergon) 324 mg PO TID [facility] Last Admin: 05/28/18 13:05 Dose: Not Given Hydroxyurea (Hydrea) 500 mg PO BID [facility] Last Admin: 05/15/18 10:00 Dose: 500 mg Methylprednisolone (Solu-Medrol) 30 mg IV Q8H [facility] Last Admin: 05/28/18 14:24 Dose: 30 mg Pantoprazole Sodium (Protonix Ec Tab) 40 mg PO DAILY [facility] Last Admin: 05/28/18 09:56 Dose: 40 mg Sodium Bicarbonate (Sodium Bicarbonate Tab) 1,300 mg PO TID [facility] Last Admin: 05/28/18 13:05 Dose: Not Given Tramadol HCl (Ultram) 25 mg NG TID PRN PRN Reason: Pain, severe (8-10) Last Admin: 05/27/18 08:53 Dose: 25 mg Verapamil HCl (Verapamil Inj) 2.5 mg IVP Q4H PRN PRN Reason: Heart rate Last Admin: 05/27/18 09:06 Dose: 2.5 mg Vitamin B Complex/Vit C/Folic Acid (Nephro-Charlie) 1 tab PO 0800 [facility] Last Admin: 05/28/18 09:56 Dose: 1 tab - Labs Labs: 05/28/18 03:58 05/28/18 03:58 PT 23.4 SECONDS (9.7-12.2) H 05/28/18 03:58 INR 2.1 05/28/18 03:58 APTT 38 SECONDS (21-34) H 05/28/18 03:58
[2018-05-28 18:01] LABS: HEPATITIS B SURFACE AG Negative (NEGATIVE)
[2018-05-28 18:06] LABS: HEPATITIS B CORE AB NEGATIVE (NEGATIVE)
[2018-05-28 18:18] LABS: HEPATITIS C ANTIBODY NEGATIVE (NEGATIVE)
--- NOTE | 2018-05-28 18:21 | CP.PCM.PN ---
Subjective - Date & Time of Evaluation Date of Evaluation: 05/28/18 Time of Evaluation: 11:00 - Subjective Subjective: clinically same Objective - Vital Signs/Intake and Output Vital Signs (last 24 hours): Temp Pulse Resp BP Pulse Ox 97.5 F L 96 H 31 H 93/59 L 91 L 05/28/18 16:45 05/28/18 17:32 05/28/18 17:32 05/28/18 17:45 05/28/18 17:02 Intake and Output: 05/28/18 05/28/18 06:59 18:59 Intake Total 399 599 Output Total 160 135 Balance 239 464 - Medications Medications: Current Medications Acetaminophen (Tylenol 325mg Tab) 650 mg PO Q6 PRN PRN Reason: Fever >100.4 F Last Admin: 05/19/18 19:00 Dose: 650 mg Albuterol/Ipratropium (Duoneb 3 Mg/0.5 Mg (3 Ml) Ud) 3 ml INH RQ6 [facility] Last Admin: 05/28/18 13:48 Dose: Not Given Enoxaparin Sodium (Lovenox) 30 mg SC DAILY [facility] Last Admin: 05/21/18 10:40 Dose: 30 mg Ergocalciferol (Drisdol 50,000 Intl Units Cap) 1 cap PO Q7D [facility] Last Admin: 05/21/18 11:56 Dose: 1 cap Ferrous Gluconate (Fergon) 324 mg PO TID [facility] Last Admin: 05/28/18 13:05 Dose: Not Given Hydroxyurea (Hydrea) 500 mg PO BID [facility] Last Admin: 05/15/18 10:00 Dose: 500 mg Methylprednisolone (Solu-Medrol) 30 mg IV Q8H [facility] Last Admin: 05/28/18 14:24 Dose: 30 mg Pantoprazole Sodium (Protonix Ec Tab) 40 mg PO DAILY [facility] Last Admin: 05/28/18 09:56 Dose: 40 mg Tramadol HCl (Ultram) 25 mg NG TID PRN PRN Reason: Pain, severe (8-10) Last Admin: 05/27/18 08:53 Dose: 25 mg Verapamil HCl (Verapamil Inj) 2.5 mg IVP Q4H PRN PRN Reason: Heart rate Last Admin: 05/27/18 09:06 Dose: 2.5 mg Vitamin B Complex/Vit C/Folic Acid (Nephro-Charlie) 1 tab PO 0800 NAN Last Admin: 05/28/18 09:56 Dose: 1 tab - Labs Labs: 05/28/18 03:58 05/28/18 03:58 PT 23.4 SECONDS (9.7-12.2) H 05/28/18 03:58 INR 2.1 05/28/18 03:58 APTT 38 SECONDS (21-34) H 05/28/18 03:58 - Constitutional Appears: Well - Head Exam Head Exam: ATRAUMATIC, NORMAL INSPECTION, NORMOCEPHALIC - Eye Exam Eye Exam: EOMI, Normal appearance, PERRL Pupil Exam: NORMAL ACCOMODATION, PERRL - ENT Exam ENT Exam: Mucous Membranes Moist, Normal Exam - Neck Exam Neck Exam: Full ROM, Normal Inspection. absent: Lymphadenopathy - Respiratory Exam Respiratory Exam: Decreased Breath Sounds - Cardiovascular Exam Cardiovascular Exam: REGULAR RHYTHM, +S1, +S2 - GI/Abdominal Exam GI & Abdominal Exam: Soft, Diminished Bowel Sounds - Rectal Exam Rectal Exam: Deferred Assessment and Plan (1) Abdominal pain Status: Acute (2) Anemia Status: Acute (3) Atrial fibrillation, new onset Status: Acute (4) CHF (congestive heart failure) Status: Acute (5) DVT (deep venous thrombosis) Status: Acute (6) Elevated brain natriuretic peptide (BNP) level Status: Acute (7) Hepatosplenomegaly Status: Acute (8) Hydronephrosis, right Status: Acute (9) Leucocytosis Status: Acute (10) Myelofibrosis Status: Acute (11) Portal vein thrombosis Status: Acute (12) Prophylactic measure Status: Acute (13) Pyelonephritis Status: Acute (14) Pyelonephritis due to Escherichia coli Status: Acute (15) Renal insufficiency Status: Acute (16) Spleen hematoma Status: Acute (17) Splenic hemorrhage Status: Acute (18) Thrombocytopenia Status: Acute (19) UTI (urinary tract infection) Status: Acute (20) Varices of other sites Status: Acute - Assessment and Plan (Free Text) Plan: Patient seen and examined at bedside Poor prognosis Events noted Needs dialysis as per nephro ID and hematology following Surgery follow-up Plan discussed with family Follow clinical course Supportive care
--- NOTE | 2018-05-28 19:20 | CP.PCM.PN ---
Subjective - Date & Time of Evaluation Date of Evaluation: 05/28/18 Time of Evaluation: 19:16 - Subjective Subjective: JANY PATTERSON MD, FACP INFECTIOUS DISEASE PROGRESS NOTE ICU#2 05/28/2018 CHART REVIEWED PT EXAMINED CASE DISCUSSED CLINICALLY DID NOT TOLERATE IST HEMODIALYSIS, ONLY ABLE TO REMOVE 500CC FLUID BEFORE BECOMING SWEATY,TIRED, LETHARGIC AFEBRILE AROUSABLE NO SIGNS OF SEPSIS OFF IV ANTIBIOTICS OBSERVE TO SEE AND REDISCUSS I DID YESTERDAY WITH THE FAMILY. JANY PATTERSON MD, FACP Objective - Vital Signs/Intake and Output Vital Signs (last 24 hours): Temp Pulse Resp BP Pulse Ox 97.8 F 87 18 92/56 L 93 L 05/28/18 18:45 05/28/18 18:45 05/28/18 18:45 05/28/18 18:45 05/28/18 18:45 Intake and Output: 05/28/18 05/29/18 18:59 06:59 Intake Total 679 Output Total 135 Balance 544 - Medications Medications: Current Medications Acetaminophen (Tylenol 325mg Tab) 650 mg PO Q6 PRN PRN Reason: Fever >100.4 F Last Admin: 05/19/18 19:00 Dose: 650 mg Albuterol/Ipratropium (Duoneb 3 Mg/0.5 Mg (3 Ml) Ud) 3 ml INH RQ6 [facility] Last Admin: 05/28/18 13:48 Dose: Not Given Enoxaparin Sodium (Lovenox) 30 mg SC DAILY [facility] Last Admin: 05/21/18 10:40 Dose: 30 mg Ergocalciferol (Drisdol 50,000 Intl Units Cap) 1 cap PO Q7D [facility] Last Admin: 05/28/18 11:00 Dose: 1 cap Ferrous Gluconate (Fergon) 324 mg PO TID [facility] Last Admin: 05/28/18 18:00 Dose: Not Given Hydroxyurea (Hydrea) 500 mg PO BID [facility] Last Admin: 05/15/18 10:00 Dose: 500 mg Methylprednisolone (Solu-Medrol) 30 mg IV Q8H [facility] Last Admin: 05/28/18 14:24 Dose: 30 mg Pantoprazole Sodium (Protonix Ec Tab) 40 mg PO DAILY [facility] Last Admin: 05/28/18 09:56 Dose: 40 mg Tramadol HCl (Ultram) 25 mg NG TID PRN PRN Reason: Pain, severe (8-10) Last Admin: 05/27/18 08:53 Dose: 25 mg Verapamil HCl (Verapamil Inj) 2.5 mg IVP Q4H PRN PRN Reason: Heart rate Last Admin: 05/27/18 09:06 Dose: 2.5 mg Vitamin B Complex/Vit C/Folic Acid (Nephro-Charlie) 1 tab PO 0800 NAN Last Admin: 05/28/18 09:56 Dose: 1 tab - Labs Labs: 05/28/18 03:58 05/28/18 03:58 PT 23.4 SECONDS (9.7-12.2) H 05/28/18 03:58 INR 2.1 05/28/18 03:58 APTT 38 SECONDS (21-34) H 05/28/18 03:58
[2018-05-29] MEDS: Albuterol-Ipratrop 3 mg / 0.5 (3 ml) UD INH SCH ×4 (01:27→19:49)
[2018-05-29] MEDS: MethylPREDNISolone 40 mg Vial IV SCH ×3 (05:30→19:46)
[2018-05-29 06:47] LABS: BASO # 0.6 K/uL (0.0-0.2); BASO % 0.7 % (0.0-2.0); EOS # 0.1 K/uL (0.0-0.7); EOS % 0.1 % (0.0-4.0); HEMOGLOBIN 12.1 g/dL (11.0-16.0); LYMPH % 2.4 % (20.0-40.0); MEAN CELL VOLUME 96.8 fL (81.0-99.0); MEAN CORPUSCULAR HEMOGLOBIN 29.6 pg (27.0-31.0); MEAN CORPUSCULAR HGB CONC 30.6 g/dL (33.0-37.0); MEAN PLATELET VOLUME 9.3 fL (7.2-11.7); MONO # 6.7 K/uL (0.0-0.8); MONO % 8.1 % (0.0-10.0); NEUT # 73.8 K/uL (1.8-7.0); NEUT % 88.7 % (50.0-75.0); NRBC % 41.9 % (0.0-2.0); RBC 4.07 Mil/uL (3.80-5.20); RED CELL DISTRIBUTION WIDTH 19.7 % (11.5-14.5)
[2018-05-29 06:57] LABS: PLATELET COUNT 27 K/uL (130-400)
[2018-05-29 07:32] LABS: ALBUMIN 2.8 g/dL (3.5-5.0); CALCIUM 8.2 mg/dl (8.6-10.4)
[2018-05-29] MEDS: Multivitamin Vitamin B Complex (Nephro-Vite) Tab PO SCH (08:35)
[2018-05-29] MEDS ORDERED: Digoxin 500 mcg/2ml (0.5 mg/2ml) Inj IVP ONE (08:44)
[2018-05-29] MEDS ORDERED: Albumin Human 25% (12.5 gm/50 ml) IV ONE (08:46)
[2018-05-29 08:52] LABS: ANISOCYTOSIS SLIGHT; BANDS 12 % (0-2); HYPOCHROMIC SLIGHT; LYMPHOCYTE 5 % (20-40); METAMYELOCYTE 1 % (0-0); MONOCYTE 4 % (0-10); MYELOCYTE 2 % (0-0); NEUTROPHIL 76 % (50-75); NUCLEATED RED BLOOD CELL 80 % (0-0); PLATELET ESTIMATE MARKEDLY DECREASED (NORMAL); POLYCHROMIC SLIGHT; TARGET CELLS SLIGHT; TOTAL CELLS COUNTED 100
[2018-05-29 08:53] LABS: SMUDGE CELLS PRESENT
[2018-05-29 09:05] VITALS: PULSE 142
--- NOTE | 2018-05-29 09:54 | RAD ---
Date of service: 05/29/2018 HISTORY: tachycardia COMPARISON: 05/26/2018. FINDINGS: The right PICC line terminates in the SVC. LUNGS: The lungs are clear. There is interval improved aeration in the lungs. PLEURA: No significant pleural effusion identified, no pneumothorax apparent. CARDIOVASCULAR: There is mild cardiomegaly. OSSEOUS STRUCTURES: No significant abnormalities. VISUALIZED UPPER ABDOMEN: Normal. OTHER FINDINGS: None. IMPRESSION: Right PICC line terminates in the SVC. No acute findings.
[2018-05-29] MEDS: Pantoprazole 40 mg EC Tab PO SCH (09:59)
[2018-05-29] MEDS ORDERED: HYDROmorphone 0.5 mg/0.5 ml ISec IVP ONE (10:45)
--- NOTE | 2018-05-29 13:28 | CP.PCM.PN ---
Subjective - Date & Time of Evaluation Date of Evaluation: 05/29/18 Time of Evaluation: 13:23 - Subjective Subjective: Nephrology Consultation Note: Assessment: critical oliguric Acute Kidney Injury (N17.9) likely due to ATN/sepsis with UTI, low BP, pre-renal state started dialysis 05/29/18 Metabolic acidosis, Hyponatremia Hypertensive Chronic Kidney Disease (I12.9) Chronic Kidney Disease (N18.3) Stage 3 with ? mg proteinuria myelofibrosis with hepatosplenomegaly and extensive varices, anemia/thrombocytopenia atrial fibrillation, right lower extremity DVT on anticoagulant developed Splenic hemorrhage s/p splenic artery embolization now with splenic infarction right hydronephrosis/pyelonephritis and Ureteral stricture s/p stent A fib with RVR Plan HD 1st session 05/28/18. had low BP during HD. will attempt 2nd session today with reduced UF goals Maintain hemodynamics stable. Avoid hypotension. Patient not on ACEI/ARB due to recent SOFIA Monitor Input/Output, daily weights and renal function with basic metabolic panel IV albumin prn anemia management as per heme: started iron and MVI. PRBC 2 unit 05/21/18. hold epogen as Hb 11.9 started weekly ergocalciferol Dose meds/antibiotics for reduced GFR. Avoid fleets enema/magnesium based laxat maddy. Avoid nephrotoxins/NSAIDs/ iodinated contrast (unless needed emergently) Glycemic control Further work up/management as per primary team Thanks for allowing me to participate in care of your patient. Will follow patient with you. Please call if any Qs. d/w team and family Dr Espinoza Wylie Office: [phone] Chief Complaint; pain abdomen Reason for consult: Acute Kidney Injury HPI: Pt is a 67 F with hx of HTN,myelofibrosis admitted recently in april with right flank pain, right hydronephrosis/pyelonephritis and Ureteral stricture s/p stent, hospital course was complicated by atrial fibrillation, right lower extremity DVT on anticoagulant developed Splenic hemorrhage s/p splenic artery embolization, hence systemic a/c was stopped. pt also with hepatosplenomegaly and extensive varices, anemia/thrombocytopenia admitted with sepsis with kelbsiella due to UTI pt also with CKD stage 3 with baseline cr 1.8-2.0 since hospitalization with AKIs Denies OTC/herbal meds or NSAIDs No recent iodinated contrast exposure. Noted obvious episodes of low BP. son bedside and helped in interpretations pt not good historian. ROS: limited ROS. pt with poor oral intake. s/p platelet transfusion but Plat counts keep going down lethargic today. Physical Examination: General Appearance: lethargic co-operative . ill appearing Vitals reviewed and noted as below Head; Atraumatic, normocephalic ENT: no ulcers no thrush. Tongue is midline. Oropharynx: no rash or ulcers. EYES: Pupils are equal, round and reactive to light accommodation. Eye muscles and extraocular movement intact. Sclera is anicteric. Neck; supple no lymphadenopathy, no thyromegaly or bruit Lungs: Increased respiratory rate/effort. Breath sounds bilateral equal and few rales + Heart: Increased rate. s1s2 normal. No rub or gallop. A fib + Extremities: 2+ edema. No varicose veins Neurological: Patient is lethargic today Skin: Warm and dry. Normal turgor. No rash. Palpitation: Normal elasticity for age Abdomen: Abdomen is soft. Bowel sounds +. There is improved abdominal tenderness without guarding no rigidity no organomegaly Psych: limited insight and normal affect/mood MSK: no joint tenderness or swelling. Digits and nails normal, no deformity : kidney or bladder not palpable Labs/imaging reviewed. Past medical history, past surgical history, family history, social history, allergy reviewed and noted as below Family hx: no hx of CKD. Rest non-contributory echo moderate pHTN, normal LVEF UA 2+ protein 3+ blood TRACEY/ANCA and Hep B/C neg Fena 0.5% Objective - Vital Signs/Intake and Output Vital Signs (last 24 hours): Temp Pulse Resp BP Pulse Ox 98.0 F 106 H 21 94/52 L 92 L 05/29/18 12:00 05/29/18 12:35 05/29/18 12:35 05/29/18 12:35 05/29/18 12:35 Intake and Output: 05/29/18 05/29/18 06:59 18:59 Intake Total 596 250 Output Total 80 140 Balance 516 110 - Medications Medications: Current Medications Acetaminophen (Tylenol 325mg Tab) 650 mg PO Q6 PRN PRN Reason: Fever >100.4 F Last Admin: 05/19/18 19:00 Dose: 650 mg Albuterol/Ipratropium (Duoneb 3 Mg/0.5 Mg (3 Ml) Ud) 3 ml INH RQ6 [facility] Last Admin: 05/29/18 08:08 Dose: Not Given Enoxaparin Sodium (Lovenox) 30 mg SC DAILY [facility] Last Admin: 05/21/18 10:40 Dose: 30 mg Ergocalciferol (Drisdol 50,000 Intl Units Cap) 1 cap PO Q7D [facility] Last Admin: 05/28/18 11:00 Dose: 1 cap Ferrous Gluconate (Fergon) 324 mg PO TID [facility] Last Admin: 05/29/18 13:12 Dose: 324 mg Hydroxyurea (Hydrea) 500 mg PO BID [facility] Last Admin: 05/15/18 10:00 Dose: 500 mg Phenylephrine HCl 30 mg/ (Sodium Chloride) 250 mls @ 10 mls/hr IV .Q24H PRN; Protocol PRN Reason: TITRATE PER MD ORDER Methylprednisolone (Solu-Medrol) 30 mg IV Q8H [facility] Last Admin: 05/29/18 11:27 Dose: 30 mg Pantoprazole Sodium (Protonix Ec Tab) 40 mg PO DAILY [facility] Last Admin: 05/29/18 09:59 Dose: 40 mg Tramadol HCl (Ultram) 25 mg NG TID PRN PRN Reason: Pain, severe (8-10) Last Admin: 05/27/18 08:53 Dose: 25 mg Verapamil HCl (Verapamil Inj) 2.5 mg IVP Q4H PRN PRN Reason: Heart rate Last Admin: 05/27/18 09:06 Dose: 2.5 mg Vitamin B Complex/Vit C/Folic Acid (Nephro-Charlie) 1 tab PO 0800 [facility] Last Admin: 05/29/18 08:35 Dose: 1 tab - Labs Labs: 05/29/18 06:30 05/29/18 06:30 PT 23.4 SECONDS (9.7-12.2) H 05/28/18 03:58 INR 2.1 05/28/18 03:58 APTT 38 SECONDS (21-34) H 05/28/18 03:58
[2018-05-29] MEDS ORDERED: Albumin Human 25% (12.5 gm/50 ml) IV PRN (13:29)
--- NOTE | 2018-05-29 14:08 | CP.CCUPN ---
<Haley Meza L - Last Filed: 05/29/18 14:21> CCU Subjective - Physician Review Subjective (Free Text): Resident Critical Care Progress Note Patient examined at bedside. No acute events overnight. Patient appears very weak, does not offer any complaints. Noted to have abdominal pain this morning and was given dilaudid. Critical Care Time Spent (in minutes): 35 CCU Objective - Vital Signs / Intake & Output Vital Signs (Last 4 hours): Vital Signs Temp Pulse Resp BP Pulse Ox 05/29/18 12:35 106 H 21 94/52 L 92 L 05/29/18 12:00 98.0 F 110 H 22 91 L 05/29/18 11:35 111 H 26 H 105/59 L 91 L 05/29/18 11:03 91 H 19 107/60 92 L 05/29/18 11:00 91 H 19 92 L 05/29/18 10:35 110 H 31 H 114/65 91 L 05/29/18 10:17 114 H 24 116/74 91 L 05/29/18 10:00 113 H 32 H 92 L 05/29/18 09:46 120 H 33 H 104/74 91 L Intake and Output (Last 8hrs): Intake & Output 05/28/18 05/29/18 05/29/18 22:59 06:59 14:59 Intake Total 120 596 250 Output Total 560 60 140 Balance -440 536 110 Weight 88 lb 14.4 oz 195 lb Intake: Intake, IV Amount 150 Right Distal Port PICC 50 Right Proximal Port PICC 100 Oral 120 0 100 Blood Product 0 596 Apheresis Plts Acda Lr 0 298 Irr Unit [id number] Output: Urine 60 60 140 Urethral (Addison) 60 60 140 Emesis 0 Other 500 Other: # Bowel Movements 0 0 - Physical Exam Head: Positive for: Atraumatic, Normocephalic Pupils: Positive for: PERRL Extroacular Muscles: Positive for: EOMI Conjunctiva: Positive for: Normal Ears: Positive for: Normal Mouth: Positive for: Moist Mucous Membranes Nose (External): Positive for: Atraumatic Neck: Positive for: Normal Range of Motion Respiratory/Chest: Positive for: Good Air Exchange, Rhonchi. Negative for: Respiratory Distress Cardiovascular: Positive for: Regular Rate and Rhythm, Normal S1, S2, Tachycardic Abdomen: Positive for: Tenderness (diffuse ), Distention. Negative for: Peritoneal Signs, Rebound Upper Extremity: Positive for: Normal Inspection. Negative for: Cyanosis, Edema Lower Extremity: Positive for: Normal Inspection, Edema. Negative for: CALF TENDERNESS Neurological: Positive for: GCS=15, CN II-XII Intact, Speech Normal Skin: Positive for: Dry, Normal Color. Negative for: Rashes Psychiatric: Positive for: Alert, Oriented x 3, Anxious - Medications Active Medications: Active Medications Generic Name Dose Route Start Last Admin Trade Name Freq PRN Reason Stop Dose Admin Acetaminophen 650 mg 05/15/18 08:56 05/19/18 19:00 Tylenol 325mg Tab PO 650 mg Q6 PRN Administration Fever >100.4 F Albumin Human 25 gm 05/29/18 13:29 Albumin Human 25% (12.5 Gm/50 Ml) IV DAILY PRN WITH HD IF BP BELOW 90/50 Albuterol/Ipratropium 3 ml 05/15/18 12:00 05/29/18 13:43 Duoneb 3 Mg/0.5 Mg (3 Ml) Ud INH Not Given RQ6 NAN Enoxaparin Sodium 30 mg 05/15/18 10:00 05/21/18 10:40 Lovenox SC 30 mg DAILY NAN Administration Ergocalciferol 1 cap 05/21/18 11:00 05/28/18 11:00 Drisdol 50,000 Intl Units Cap PO 1 cap Q7D NAN Administration Ferrous Gluconate 324 mg 05/21/18 14:00 05/29/18 13:12 Fergon PO 324 mg TID NAN Administration Hydroxyurea 500 mg 05/15/18 10:00 05/15/18 10:00 Hydrea PO 500 mg BID NAN Administration Phenylephrine HCl 30 mg/ 250 mls @ 10 mls/hr 05/29/18 09:30 Sodium Chloride IV .Q24H PRN TITRATE PER MD ORDER Protocol 20 MCG/MIN Methylprednisolone 30 mg 05/24/18 12:15 05/29/18 11:27 Solu-Medrol IV 30 mg Q8H NAN Administration Pantoprazole Sodium 40 mg 05/23/18 10:00 05/29/18 09:59 Protonix Ec Tab PO 40 mg DAILY NAN Administration Tramadol HCl 25 mg 05/22/18 07:16 05/27/18 08:53 Ultram NG 25 mg TID PRN Administration Pain, severe (8-10) Verapamil HCl 2.5 mg 05/24/18 07:25 05/27/18 09:06 Verapamil Inj IVP 2.5 mg Q4H PRN Administration Heart rate Vitamin B Complex/Vit C/Folic Acid 1 tab 05/22/18 08:00 05/29/18 08:35 Nephro-Charlie PO 1 tab 0800 NAN Administration - Patient Studies Lab Studies: Microbiology Studies 05/27/18 21:16 Urine Culture - Final Urine No Growth (<1,000 CFU/ML) 05/27/18 20:03 Blood Culture - Preliminary Blood NO GROWTH AFTER 24 HOURS 05/27/18 20:03 Blood Culture - Preliminary Blood NO GROWTH AFTER 24 HOURS Lab Studies 05/29/18 05/29/18 05/28/18 Range/Units 06:30 06:30 17:03 WBC 83.3 H* (4.8-10.8) K/uL RBC 4.07 (3.80-5.20) Mil/uL Hgb 12.1 (11.0-16.0) g/dL Hct 39.4 (34.0-47.0) % MCV 96.8 D (81.0-99.0) fL MCH 29.6 (27.0-31.0) pg MCHC 30.6 L (33.0-37.0) g/dL RDW 19.7 H (11.5-14.5) % Plt Count 27 L* D (130-400) K/uL MPV 9.3 (7.2-11.7) fL Neut % (Auto) 88.7 H (50.0-75.0) % Lymph % (Auto) 2.4 L (20.0-40.0) % Kimball % (Auto) 8.1 (0.0-10.0) % Eos % (Auto) 0.1 (0.0-4.0) % Baso % (Auto) 0.7 (0.0-2.0) % Neut # (Auto) 73.8 H (1.8-7.0) K/uL Lymph # (Auto) 2.0 (1.0-4.3) K/uL Kimball # (Auto) 6.7 H (0.0-0.8) K/uL Eos # (Auto) 0.1 (0.0-0.7) K/uL Baso # (Auto) 0.6 H (0.0-0.2) K/uL Neutrophils % (Manual) 76 H (50-75) % Band Neutrophils % 12 H* (0-2) % Lymphocytes % (Manual) 5 L (20-40) % Monocytes % (Manual) 4 (0-10) % Metamyelocytes % 1 H (0-0) % Myelocytes % 2 H (0-0) % Nucleated RBC % 80 H (0-0) % Smudge Cells Present Platelet Estimate Markedly decreased L (NORMAL) Polychromasia Slight Hypochromasia (manual) Slight Anisocytosis (manual) Slight Macrocytosis (manual) Slight Target Cells Slight Sodium 140 (132-148) mmol/L Potassium 4.4 (3.6-5.2) mmol/L Chloride 102 (98-107) mmol/L Carbon Dioxide 19 L (22-30) mmol/L Anion Gap 24 H (10-20) BUN 129 H* (7-17) mg/dL Creatinine 2.9 H (0.7-1.2) mg/dL Est GFR ( Amer) 20 Est GFR (Non-Af Amer) 16 Random Glucose 140 H (65-105) mg/dL Calcium 8.2 L (8.6-10.4) mg/dl Phosphorus 5.6 H (2.5-4.5) mg/dL Magnesium 2.2 (1.6-2.3) mg/dL Total Bilirubin 2.3 H (0.2-1.3) mg/dL AST 31 (14-36) U/L ALT 27 (9-52) U/L Alkaline Phosphatase 92 (38-126) U/L Total Protein 5.5 L (6.3-8.3) g/dL Albumin 2.8 L (3.5-5.0) g/dL Globulin 2.7 (2.2-3.9) gm/dL Albumin/Globulin Ratio 1.0 (1.0-2.1) Hep Bs Antigen (NEGATIVE) Hep Bs Antibody Indeterminate (NEGATIVE) Hep B Core IgM Ab (NEGATIVE) Hepatitis C Antibody (NEGATIVE) 05/28/18 Range/Units 17:03 WBC (4.8-10.8) K/uL RBC (3.80-5.20) Mil/uL Hgb (11.0-16.0) g/dL Hct (34.0-47.0) % MCV (81.0-99.0) fL MCH (27.0-31.0) pg MCHC (33.0-37.0) g/dL RDW (11.5-14.5) % Plt Count (130-400) K/uL MPV (7.2-11.7) fL Neut % (Auto) (50.0-75.0) % Lymph % (Auto) (20.0-40.0) % Kimball % (Auto) (0.0-10.0) % Eos % (Auto) (0.0-4.0) % Baso % (Auto) (0.0-2.0) % Neut # (Auto) (1.8-7.0) K/uL Lymph # (Auto) (1.0-4.3) K/uL Kimball # (Auto) (0.0-0.8) K/uL Eos # (Auto) (0.0-0.7) K/uL Baso # (Auto) (0.0-0.2) K/uL Neutrophils % (Manual) (50-75) % Band Neutrophils % (0-2) % Lymphocytes % (Manual) (20-40) % Monocytes % (Manual) (0-10) % Metamyelocytes % (0-0) % Myelocytes % (0-0) % Nucleated RBC % (0-0) % Smudge Cells Platelet Estimate (NORMAL) Polychromasia Hypochromasia (manual) Anisocytosis (manual) Macrocytosis (manual) Target Cells Sodium (132-148) mmol/L Potassium (3.6-5.2) mmol/L Chloride (98-107) mmol/L Carbon Dioxide (22-30) mmol/L Anion Gap (10-20) BUN (7-17) mg/dL Creatinine (0.7-1.2) mg/dL Est GFR ( Amer) Est GFR (Non-Af Amer) Random Glucose (65-105) mg/dL Calcium (8.6-10.4) mg/dl Phosphorus (2.5-4.5) mg/dL Magnesium (1.6-2.3) mg/dL Total Bilirubin (0.2-1.3) mg/dL AST (14-36) U/L ALT (9-52) U/L Alkaline Phosphatase (38-126) U/L Total Protein (6.3-8.3) g/dL Albumin (3.5-5.0) g/dL Globulin (2.2-3.9) gm/dL Albumin/Globulin Ratio (1.0-2.1) Hep Bs Antigen Negative (NEGATIVE) Hep Bs Antibody (NEGATIVE) Hep B Core IgM Ab Negative (NEGATIVE) Hepatitis C Antibody Negative (NEGATIVE) Laboratory Results - last 24 hr 05/28/18 05/28/18 05/29/18 17:03 17:03 06:30 WBC 83.3 H* RBC 4.07 Hgb 12.1 Hct 39.4 MCV 96.8 D MCH 29.6 MCHC 30.6 L RDW 19.7 H Plt Count 27 L* D MPV 9.3 Neut % (Auto) 88.7 H Lymph % (Auto) 2.4 L Kimball % (Auto) 8.1 Eos % (Auto) 0.1 Baso % (Auto) 0.7 Neut # (Auto) 73.8 H Lymph # (Auto) 2.0 Kimball # (Auto) 6.7 H Eos # (Auto) 0.1 Baso # (Auto) 0.6 H Neutrophils % (Manual) 76 H Band Neutrophils % 12 H* Lymphocytes % (Manual) 5 L Monocytes % (Manual) 4 Metamyelocytes % 1 H Myelocytes % 2 H Nucleated RBC % 80 H Smudge Cells Present Platelet Estimate Markedly decreased L Polychromasia Slight Hypochromasia (manual) Slight Anisocytosis (manual) Slight Macrocytosis (manual) Slight Target Cells Slight Sodium Potassium Chloride Carbon Dioxide Anion Gap BUN Creatinine Est GFR ( Amer) Est GFR (Non-Af Amer) Random Glucose Calcium Phosphorus Magnesium Total Bilirubin AST ALT Alkaline Phosphatase Total Protein Albumin Globulin Albumin/Globulin Ratio Hep Bs Antigen Negative Hep Bs Antibody Indeterminate Hep B Core IgM Ab Negative Hepatitis C Antibody Negative 05/29/18 06:30 WBC RBC Hgb Hct MCV MCH MCHC RDW Plt Count MPV Neut % (Auto) Lymph % (Auto) Kimball % (Auto) Eos % (Auto) Baso % (Auto) Neut # (Auto) Lymph # (Auto) Kimball # (Auto) Eos # (Auto) Baso # (Auto) Neutrophils % (Manual) Band Neutrophils % Lymphocytes % (Manual) Monocytes % (Manual) Metamyelocytes % Myelocytes % Nucleated RBC % Smudge Cells Platelet Estimate Polychromasia Hypochromasia (manual) Anisocytosis (manual) Macrocytosis (manual) Target Cells Sodium 140 Potassium 4.4 Chloride 102 Carbon Dioxide 19 L Anion Gap 24 H BUN 129 H* Creatinine 2.9 H Est GFR ( Amer) 20 Est GFR (Non-Af Amer) 16 Random Glucose 140 H Calcium 8.2 L Phosphorus 5.6 H Magnesium 2.2 Total Bilirubin 2.3 H AST 31 ALT 27 Alkaline Phosphatase 92 Total Protein 5.5 L Albumin 2.8 L Globulin 2.7 Albumin/Globulin Ratio 1.0 Hep Bs Antigen Hep Bs Antibody Hep B Core IgM Ab Hepatitis C Antibody Review of Systems - Review of Systems All systems: reviewed and no additional remarkable complaints except (as stated in HPI) Critical Care Progress Note - Nutrition Nutrition: Nutrition Category Date Time Status Renal Diet [DIET] Diets 05/29/18 Lunch Active Assessment/Plan - Assessment and Plan (Free Text) Assessment: 67 year old female with a PMHx of myelofibrosis, HTN, renal insufficiency admitted with fever and UTI. 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 On previous admission patient had splenic embolization. Plan: Neuro: - AAO x3 Pulm: - nasal cannula as tolerated - Duonebs 3 ml INH RQ6 CV: - currently hemodynamically stable, however having continuous episodes of tachycardia - Verapamil 2.5 mg IV Q4H PRN - Digoxin 0.5 mg IVP given once GI: - s/p IR splenic artery embolization, now with inflammatory infarcting spleen. Morbidity is now high. family does not want splenectomy - methylprednisolone 30 mg IV Q8H - Protonix 40 mg PO daily Renal: - SOFIA, oliguria - Nephrology Dr. Wylie consulted. Recs appreciated. - s/p dialysis cath placement yesterday - First HD session yesterday, plan for second HD today ID: - ID Dr. Jackson consulted. Recs appreciated. - Was on Avycaz and metronidazole Heme/Onc - Hx of myelofibrosis with chronic leukocytosis - Dr. Mcbride consulted. Recs appreciated. - Holding Hydrea, Jakafi - Ferrous gluconate 324 mg PO TID - 21 mcg desmopressin administered for thrombocytopenia Endo: - Maintain euglycemia PPX: Protonix 40 mg PO daily, Lovenox 30 mg SC daily held Case and plan was reviewed and discussed with Dr. Gutiérrez - Date & Time Date: 05/29/18 Time: 08:00 <Pennie Gutiérrez - Last Filed: 05/29/18 18:13> CCU Objective - Vital Signs / Intake & Output Vital Signs (Last 4 hours): Vital Signs Temp Pulse Pulse Resp BP BP Pulse Ox 05/29/18 17:00 127 H 138 H 28 H 101/59 L 95 05/29/18 16:58 120 H 31 H 116/69 96 05/29/18 16:50 128 H 32 H 101/59 L 95 05/29/18 16:40 115 H 20 98/56 L 96 05/29/18 16:35 118 H 25 H 98/56 L 96 05/29/18 16:20 108 H 102 H 19 93/55 L 98/59 L 96 05/29/18 16:07 105 H 19 98/59 L 94 L 05/29/18 16:00 97.7 F 109 H 105 H 33 H 115/64 94 L 05/29/18 15:55 113 H 33 H 90/52 L 95 05/29/18 15:50 111 H 24 88/55 L 95 05/29/18 15:35 96 H 21 115/64 95 05/29/18 15:30 97.7 F 100 H 100 H 20 116/65 116/65 95 05/29/18 15:27 106 H 24 116/65 94 L 05/29/18 15:20 107 H 25 H 98/57 L 94 L 05/29/18 15:15 113 H 26 H 97/52 L 93 L 05/29/18 15:14 98 H 23 97/52 L 93 L 05/29/18 15:05 114 H 30 H 83/50 L 92 L 05/29/18 15:00 110 H 31 H 93 L 05/29/18 14:42 112 H 24 81/46 L 93 L 05/29/18 14:35 125 H 26 H 87/48 L 93 L Intake and Output (Last 8hrs): Intake & Output 05/29/18 05/29/18 05/29/18 06:59 14:59 22:59 Intake Total 596 300 210 Output Total 60 100 5 Balance 536 200 205 Weight 195 lb Intake: IV 70 Intake, IV Amount 150 140 Right Distal Port PICC 50 40 Right Proximal Port PICC 100 100 Oral 0 150 0 Blood Product 596 Apheresis Plts Acda Lr 298 Irr Unit [id number] Output: Urine 60 100 5 Urethral (Addison) 60 100 5 Other: # Bowel Movements 0 0 - Medications Active Medications: Active Medications Generic Name Dose Route Start Last Admin Trade Name Freq PRN Reason Stop Dose Admin Acetaminophen 650 mg 05/15/18 08:56 05/19/18 19:00 Tylenol 325mg Tab PO 650 mg Q6 PRN Administration Fever >100.4 F Albumin Human 25 gm 05/29/18 13:29 05/29/18 14:46 Albumin Human 25% (12.5 Gm/50 Ml) IV 25 gm DAILY PRN Administration WITH HD IF BP BELOW 90/50 Albuterol/Ipratropium 3 ml 05/15/18 12:00 05/29/18 13:43 Duoneb 3 Mg/0.5 Mg (3 Ml) Ud INH Not Given RQ6 NAN Enoxaparin Sodium 30 mg 05/15/18 10:00 05/21/18 10:40 Lovenox SC 30 mg DAILY NAN Administration Ergocalciferol 1 cap 05/21/18 11:00 05/28/18 11:00 Drisdol 50,000 Intl Units Cap PO 1 cap Q7D NAN Administration Ferrous Gluconate 324 mg 05/21/18 14:00 05/29/18 17:04 Fergon PO Not Given TID NAN Hydroxyurea 500 mg 05/15/18 10:00 05/15/18 10:00 Hydrea PO 500 mg BID NAN Administration Phenylephrine HCl 30 mg/ 250 mls @ 10 mls/hr 05/29/18 09:30 05/29/18 17:31 Sodium Chloride IV 20 mcg/min .Q24H PRN 10 mls/hr TITRATE PER MD ORDER Titration Protocol 20 MCG/MIN Methylprednisolone 30 mg 05/24/18 12:15 05/29/18 11:27 Solu-Medrol IV 30 mg Q8H NAN Administration Pantoprazole Sodium 40 mg 05/23/18 10:00 05/29/18 09:59 Protonix Ec Tab PO 40 mg DAILY NAN Administration Tramadol HCl 25 mg 05/22/18 07:16 05/27/18 08:53 Ultram NG 25 mg TID PRN Administration Pain, severe (8-10) Verapamil HCl 2.5 mg 05/24/18 07:25 05/27/18 09:06 Verapamil Inj IVP 2.5 mg Q4H PRN Administration Heart rate Vitamin B Complex/Vit C/Folic Acid 1 tab 05/22/18 08:00 05/29/18 08:35 Nephro-Charlie PO 1 tab 0800 NAN Administration - Patient Studies Lab Studies: Microbiology Studies 05/27/18 21:16 Urine Culture - Final Urine No Growth (<1,000 CFU/ML) 05/27/18 20:03 Blood Culture - Preliminary Blood NO GROWTH AFTER 24 HOURS 05/27/18 20:03 Blood Culture - Preliminary Blood NO GROWTH AFTER 24 HOURS Lab Studies 05/29/18 05/29/18 05/28/18 Range/Units 06:30 06:30 17:03 WBC 83.3 H* (4.8-10.8) K/uL RBC 4.07 (3.80-5.20) Mil/uL Hgb 12.1 (11.0-16.0) g/dL Hct 39.4 (34.0-47.0) % MCV 96.8 D (81.0-99.0) fL MCH 29.6 (27.0-31.0) pg MCHC 30.6 L (33.0-37.0) g/dL RDW 19.7 H (11.5-14.5) % Plt Count 27 L* D (130-400) K/uL MPV 9.3 (7.2-11.7) fL Neut % (Auto) 88.7 H (50.0-75.0) % Lymph % (Auto) 2.4 L (20.0-40.0) % Kimball % (Auto) 8.1 (0.0-10.0) % Eos % (Auto) 0.1 (0.0-4.0) % Baso % (Auto) 0.7 (0.0-2.0) % Neut # (Auto) 73.8 H (1.8-7.0) K/uL Lymph # (Auto) 2.0 (1.0-4.3) K/uL Kimball # (Auto) 6.7 H (0.0-0.8) K/uL Eos # (Auto) 0.1 (0.0-0.7) K/uL Baso # (Auto) 0.6 H (0.0-0.2) K/uL Neutrophils % (Manual) 76 H (50-75) % Band Neutrophils % 12 H* (0-2) % Lymphocytes % (Manual) 5 L (20-40) % Monocytes % (Manual) 4 (0-10) % Metamyelocytes % 1 H (0-0) % Myelocytes % 2 H (0-0) % Nucleated RBC % 80 H (0-0) % Smudge Cells Present Platelet Estimate Markedly decreased L (NORMAL) Polychromasia Slight Hypochromasia (manual) Slight Anisocytosis (manual) Slight Macrocytosis (manual) Slight Target Cells Slight Sodium 140 (132-148) mmol/L Potassium 4.4 (3.6-5.2) mmol/L Chloride 102 (98-107) mmol/L Carbon Dioxide 19 L (22-30) mmol/L Anion Gap 24 H (10-20) BUN 129 H* (7-17) mg/dL Creatinine 2.9 H (0.7-1.2) mg/dL Est GFR ( Amer) 20 Est GFR (Non-Af Amer) 16 Random Glucose 140 H (65-105) mg/dL Calcium 8.2 L (8.6-10.4) mg/dl Phosphorus 5.6 H (2.5-4.5) mg/dL Magnesium 2.2 (1.6-2.3) mg/dL Total Bilirubin 2.3 H (0.2-1.3) mg/dL AST 31 (14-36) U/L ALT 27 (9-52) U/L Alkaline Phosphatase 92 (38-126) U/L Total Protein 5.5 L (6.3-8.3) g/dL Albumin 2.8 L (3.5-5.0) g/dL Globulin 2.7 (2.2-3.9) gm/dL Albumin/Globulin Ratio 1.0 (1.0-2.1) Hep Bs Antibody Indeterminate (NEGATIVE) Hep B Core IgM Ab (NEGATIVE) Hepatitis C Antibody (NEGATIVE) 10/10/18 Range/Units 17:03 WBC (4.8-10.8) K/uL RBC (3.80-5.20) Mil/uL Hgb (11.0-16.0) g/dL Hct (34.0-47.0) % MCV (81.0-99.0) fL MCH (27.0-31.0) pg MCHC (33.0-37.0) g/dL RDW (11.5-14.5) % Plt Count (130-400) K/uL MPV (7.2-11.7) fL Neut % (Auto) (50.0-75.0) % Lymph % (Auto) (20.0-40.0) % Kimball % (Auto) (0.0-10.0) % Eos % (Auto) (0.0-4.0) % Baso % (Auto) (0.0-2.0) % Neut # (Auto) (1.8-7.0) K/uL Lymph # (Auto) (1.0-4.3) K/uL Kimball # (Auto) (0.0-0.8) K/uL Eos # (Auto) (0.0-0.7) K/uL Baso # (Auto) (0.0-0.2) K/uL Neutrophils % (Manual) (50-75) % Band Neutrophils % (0-2) % Lymphocytes % (Manual) (20-40) % Monocytes % (Manual) (0-10) % Metamyelocytes % (0-0) % Myelocytes % (0-0) % Nucleated RBC % (0-0) % Smudge Cells Platelet Estimate (NORMAL) Polychromasia Hypochromasia (manual) Anisocytosis (manual) Macrocytosis (manual) Target Cells Sodium (132-148) mmol/L Potassium (3.6-5.2) mmol/L Chloride (98-107) mmol/L Carbon Dioxide (22-30) mmol/L Anion Gap (10-20) BUN (7-17) mg/dL Creatinine (0.7-1.2) mg/dL Est GFR ( Amer) Est GFR (Non-Af Amer) Random Glucose (65-105) mg/dL Calcium (8.6-10.4) mg/dl Phosphorus (2.5-4.5) mg/dL Magnesium (1.6-2.3) mg/dL Total Bilirubin (0.2-1.3) mg/dL AST (14-36) U/L ALT (9-52) U/L Alkaline Phosphatase (38-126) U/L Total Protein (6.3-8.3) g/dL Albumin (3.5-5.0) g/dL Globulin (2.2-3.9) gm/dL Albumin/Globulin Ratio (1.0-2.1) Hep Bs Antibody (NEGATIVE) Hep B Core IgM Ab Negative (NEGATIVE) Hepatitis C Antibody Negative (NEGATIVE) Laboratory Results - last 24 hr 05/28/18 05/28/18 05/29/18 17:03 17:03 06:30 WBC 83.3 H* RBC 4.07 Hgb 12.1 Hct 39.4 MCV 96.8 D MCH 29.6 MCHC 30.6 L RDW 19.7 H Plt Count 27 L* D MPV 9.3 Neut % (Auto) 88.7 H Lymph % (Auto) 2.4 L Kimball % (Auto) 8.1 Eos % (Auto) 0.1 Baso % (Auto) 0.7 Neut # (Auto) 73.8 H Lymph # (Auto) 2.0 Kimball # (Auto) 6.7 H Eos # (Auto) 0.1 Baso # (Auto) 0.6 H Neutrophils % (Manual) 76 H Band Neutrophils % 12 H* Lymphocytes % (Manual) 5 L Monocytes % (Manual) 4 Metamyelocytes % 1 H Myelocytes % 2 H Nucleated RBC % 80 H Smudge Cells Present Platelet Estimate Markedly decreased L Polychromasia Slight Hypochromasia (manual) Slight Anisocytosis (manual) Slight Macrocytosis (manual) Slight Target Cells Slight Sodium Potassium Chloride Carbon Dioxide Anion Gap BUN Creatinine Est GFR ( Amer) Est GFR (Non-Af Amer) Random Glucose Calcium Phosphorus Magnesium Total Bilirubin AST ALT Alkaline Phosphatase Total Protein Albumin Globulin Albumin/Globulin Ratio Hep Bs Antibody Indeterminate Hep B Core IgM Ab Negative Hepatitis C Antibody Negative 05/29/18 06:30 WBC RBC Hgb Hct MCV MCH MCHC RDW Plt Count MPV Neut % (Auto) Lymph % (Auto) Kimball % (Auto) Eos % (Auto) Baso % (Auto) Neut # (Auto) Lymph # (Auto) Kimball # (Auto) Eos # (Auto) Baso # (Auto) Neutrophils % (Manual) Band Neutrophils % Lymphocytes % (Manual) Monocytes % (Manual) Metamyelocytes % Myelocytes % Nucleated RBC % Smudge Cells Platelet Estimate Polychromasia Hypochromasia (manual) Anisocytosis (manual) Macrocytosis (manual) Target Cells Sodium 140 Potassium 4.4 Chloride 102 Carbon Dioxide 19 L Anion Gap 24 H BUN 129 H* Creatinine 2.9 H Est GFR ( Amer) 20 Est GFR (Non-Af Amer) 16 Random Glucose 140 H Calcium 8.2 L Phosphorus 5.6 H Magnesium 2.2 Total Bilirubin 2.3 H AST 31 ALT 27 Alkaline Phosphatase 92 Total Protein 5.5 L Albumin 2.8 L Globulin 2.7 Albumin/Globulin Ratio 1.0 Hep Bs Antibody Hep B Core IgM Ab Hepatitis C Antibody Critical Care Progress Note - Nutrition Nutrition: Nutrition Category Date Time Status Renal Diet [DIET] Diets 05/29/18 Lunch Active Assessment/Plan - Assessment and Plan (Free Text) Plan: Patient seen and examined at bedside. Patient with h/o myelofibrosis, h/o A-fib on anticoagulation, h/o bleeding (requiring PRBC) now DNR/DNI being evaluated in ICU for HD via right femoral central line. -Tachycardia/A-fib: suspect 2nd A-fib being rx with dig and verapamil PRN -at times shock with BP low: on low dose phenylephrine and albumin 25 mg once today -Pain: rx with dilaudid -Leukocytosis/mylofibrosis: will benefit from hydroxyurea, heme.onc input appreciated -Sepsis: h/o UTI with MRDO s/p completion of ABX, ID follow up -CKD stage III: will benefit from HD as per renal -DVT ppx scds -PUD ppx protonix Goals of care: DNR/DNI as per family wishes, consider active palliative eval. -patient being managed by multiple services including Heme/onc, ID, pulmonary and surgery. -continue to monitor Prognosis guarded
[2018-05-29] MEDS: Phenylephrine 30 MG in Sodium Chloride 0.9% 247 ML IV PRN (15:15)
[2018-05-29 15:35] LABS: WHITE BLOOD COUNT 83.3 K/uL (4.8-10.8)
[2018-05-29] MEDS ORDERED: HYDROmorphone 0.5 mg/0.5 ml ISec IVP STA (17:58)
--- NOTE | 2018-05-29 18:30 | CP.PCM.PN ---
Subjective - Date & Time of Evaluation Date of Evaluation: 05/29/18 Time of Evaluation: 18:27 - Subjective Subjective: INFECTIOUS DISEASE ICU#2 PROGRESS NOTES JANY PATTERSON MD, FACP ICU #2 05/29/2018 CHART REVIEWED EXAMINE NOTED CASE DISCUSSED WITH DRUM DRIER RAPID ATRIAL FIB ON DIG NOW LETHARGIC/DIALYSIS LASTED ONLY 1 1/2 HOURS REQUIRING VASOPRESSORS AND PAIN MEDS PT DNR/DNI OBSERVE OFF ANTIBIOTICS, REC/S NEEDED AND ALERT ME TO SAME. JANY PATTERSON MD, FACP Objective - Vital Signs/Intake and Output Vital Signs (last 24 hours): Temp Pulse Resp BP Pulse Ox 97.7 F 138 H 20 101/59 L 96 05/29/18 16:00 05/29/18 17:00 05/29/18 17:00 05/29/18 17:00 05/29/18 17:00 Intake and Output: 05/29/18 05/29/18 06:59 18:59 Intake Total 596 510 Output Total 80 105 Balance 516 405 - Medications Medications: Current Medications Acetaminophen (Tylenol 325mg Tab) 650 mg PO Q6 PRN PRN Reason: Fever >100.4 F Last Admin: 05/19/18 19:00 Dose: 650 mg Albumin Human (Albumin Human 25% (12.5 Gm/50 Ml)) 25 gm IV DAILY PRN PRN Reason: WITH HD IF BP BELOW 90/50 Last Admin: 05/29/18 14:46 Dose: 25 gm Albuterol/Ipratropium (Duoneb 3 Mg/0.5 Mg (3 Ml) Ud) 3 ml INH RQ6 [facility] Last Admin: 05/29/18 13:43 Dose: Not Given Enoxaparin Sodium (Lovenox) 30 mg SC DAILY [facility] Last Admin: 05/21/18 10:40 Dose: 30 mg Ergocalciferol (Drisdol 50,000 Intl Units Cap) 1 cap PO Q7D [facility] Last Admin: 05/28/18 11:00 Dose: 1 cap Ferrous Gluconate (Fergon) 324 mg PO TID [facility] Last Admin: 05/29/18 17:04 Dose: Not Given Hydroxyurea (Hydrea) 500 mg PO BID [facility] Last Admin: 05/15/18 10:00 Dose: 500 mg Phenylephrine HCl 30 mg/ (Sodium Chloride) 250 mls @ 10 mls/hr IV .Q24H PRN; Protocol PRN Reason: TITRATE PER MD ORDER Last Titration: 05/29/18 17:31 Dose: 20 mcg/min, 10 mls/hr Methylprednisolone (Solu-Medrol) 30 mg IV Q8H [facility] Last Admin: 05/29/18 11:27 Dose: 30 mg Pantoprazole Sodium (Protonix Ec Tab) 40 mg PO DAILY [facility] Last Admin: 05/29/18 09:59 Dose: 40 mg Tramadol HCl (Ultram) 25 mg NG TID PRN PRN Reason: Pain, severe (8-10) Last Admin: 05/27/18 08:53 Dose: 25 mg Verapamil HCl (Verapamil Inj) 2.5 mg IVP Q4H PRN PRN Reason: Heart rate Last Admin: 05/27/18 09:06 Dose: 2.5 mg Vitamin B Complex/Vit C/Folic Acid (Nephro-Charlie) 1 tab PO 0800 [facility] Last Admin: 05/29/18 08:35 Dose: 1 tab - Labs Labs: 05/29/18 06:30 05/29/18 06:30 PT 23.4 SECONDS (9.7-12.2) H 05/28/18 03:58 INR 2.1 05/28/18 03:58 APTT 38 SECONDS (21-34) H 05/28/18 03:58
--- NOTE | 2018-05-29 22:11 | CP.PCM.PN ---
Subjective - Date & Time of Evaluation Date of Evaluation: 05/29/18 Time of Evaluation: 11:30 - Subjective Subjective: clinically same Objective - Vital Signs/Intake and Output Vital Signs (last 24 hours): Temp Pulse Resp BP Pulse Ox 99.1 F 100 H 20 94/55 L 92 L 05/29/18 20:00 05/29/18 21:39 05/29/18 21:39 05/29/18 21:39 05/29/18 21:39 Intake and Output: 05/29/18 05/30/18 18:59 06:59 Intake Total 540 80 Output Total 90 10 Balance 450 70 - Medications Medications: Current Medications Acetaminophen (Tylenol 325mg Tab) 650 mg PO Q6 PRN PRN Reason: Fever >100.4 F Last Admin: 05/19/18 19:00 Dose: 650 mg Albumin Human (Albumin Human 25% (12.5 Gm/50 Ml)) 25 gm IV DAILY PRN PRN Reason: WITH HD IF BP BELOW 90/50 Last Admin: 05/29/18 14:46 Dose: 25 gm Albuterol/Ipratropium (Duoneb 3 Mg/0.5 Mg (3 Ml) Ud) 3 ml INH RQ6 [facility] Last Admin: 05/29/18 19:49 Dose: Not Given Enoxaparin Sodium (Lovenox) 30 mg SC DAILY [facility] Last Admin: 05/21/18 10:40 Dose: 30 mg Ergocalciferol (Drisdol 50,000 Intl Units Cap) 1 cap PO Q7D [facility] Last Admin: 05/28/18 11:00 Dose: 1 cap Ferrous Gluconate (Fergon) 324 mg PO TID [facility] Last Admin: 05/29/18 17:04 Dose: Not Given Hydroxyurea (Hydrea) 500 mg PO BID [facility] Last Admin: 05/15/18 10:00 Dose: 500 mg Phenylephrine HCl 30 mg/ (Sodium Chloride) 250 mls @ 10 mls/hr IV .Q24H PRN; Protocol PRN Reason: TITRATE PER MD ORDER Last Titration: 05/29/18 18:58 Dose: 40 mcg/min, 20 mls/hr Methylprednisolone (Solu-Medrol) 30 mg IV Q8H [facility] Last Admin: 05/29/18 19:46 Dose: 30 mg Pantoprazole Sodium (Protonix Ec Tab) 40 mg PO DAILY [facility] Last Admin: 05/29/18 09:59 Dose: 40 mg Tramadol HCl (Ultram) 25 mg NG TID PRN PRN Reason: Pain, severe (8-10) Last Admin: 05/27/18 08:53 Dose: 25 mg Verapamil HCl (Verapamil Inj) 2.5 mg IVP Q4H PRN PRN Reason: Heart rate Last Admin: 05/27/18 09:06 Dose: 2.5 mg Vitamin B Complex/Vit C/Folic Acid (Nephro-Charlie) 1 tab PO 0800 [facility] Last Admin: 05/29/18 08:35 Dose: 1 tab - Labs Labs: 05/29/18 06:30 05/29/18 06:30 PT 23.4 SECONDS (9.7-12.2) H 05/28/18 03:58 INR 2.1 05/28/18 03:58 APTT 38 SECONDS (21-34) H 05/28/18 03:58 - Constitutional Appears: Non-toxic, Chronically Ill - Head Exam Head Exam: ATRAUMATIC, NORMAL INSPECTION - Eye Exam Eye Exam: EOMI, Normal appearance - ENT Exam ENT Exam: Mucous Membranes Moist - Neck Exam Neck Exam: Normal Inspection - Respiratory Exam Respiratory Exam: Decreased Breath Sounds - Cardiovascular Exam Cardiovascular Exam: +S1, +S2 - GI/Abdominal Exam GI & Abdominal Exam: Diminished Bowel Sounds - Rectal Exam Rectal Exam: Deferred Assessment and Plan (1) Abdominal pain Status: Acute (2) Anemia Status: Acute (3) Atrial fibrillation, new onset Status: Acute (4) CHF (congestive heart failure) Status: Acute (5) DVT (deep venous thrombosis) Status: Acute (6) Elevated brain natriuretic peptide (BNP) level Status: Acute (7) Hepatosplenomegaly Status: Acute (8) Hydronephrosis, right Status: Acute (9) Leucocytosis Status: Acute (10) Myelofibrosis Status: Acute (11) Portal vein thrombosis Status: Acute (12) Prophylactic measure Status: Acute (13) Pyelonephritis Status: Acute (14) Pyelonephritis due to Escherichia coli Status: Acute (15) Renal insufficiency Status: Acute (16) Spleen hematoma Status: Acute (17) Splenic hemorrhage Status: Acute (18) Thrombocytopenia Status: Acute (19) UTI (urinary tract infection) Status: Acute (20) Varices of other sites Status: Acute - Assessment and Plan (Free Text) Plan: Patient seen and examined at bedside Lethargic S/P hemodialysis Very poor prognosis Discussed with family Off antibiotics Monitor input and output Comfort care DNR/DNI
--- NOTE | 2018-05-29 23:17 | CP.PCM.PN ---
Subjective - Date & Time of Evaluation Date of Evaluation: 05/28/18 Time of Evaluation: 16:10 - Subjective Subjective: Patient seen and evaluated Denies chest pain and dyspnea Objective - Vital Signs/Intake and Output Vital Signs (last 24 hours): Temp Pulse Resp BP Pulse Ox 99.1 F 99 H 22 104/61 92 L 05/29/18 20:00 05/29/18 22:08 05/29/18 22:08 05/29/18 22:08 05/29/18 22:08 Intake and Output: 05/29/18 05/30/18 18:59 06:59 Intake Total 540 80 Output Total 90 10 Balance 450 70 - Medications Medications: Current Medications Acetaminophen (Tylenol 325mg Tab) 650 mg PO Q6 PRN PRN Reason: Fever >100.4 F Last Admin: 05/19/18 19:00 Dose: 650 mg Albumin Human (Albumin Human 25% (12.5 Gm/50 Ml)) 25 gm IV DAILY PRN PRN Reason: WITH HD IF BP BELOW 90/50 Last Admin: 05/29/18 14:46 Dose: 25 gm Albuterol/Ipratropium (Duoneb 3 Mg/0.5 Mg (3 Ml) Ud) 3 ml INH RQ6 [facility] Last Admin: 05/29/18 19:49 Dose: Not Given Enoxaparin Sodium (Lovenox) 30 mg SC DAILY [facility] Last Admin: 05/21/18 10:40 Dose: 30 mg Ergocalciferol (Drisdol 50,000 Intl Units Cap) 1 cap PO Q7D [facility] Last Admin: 05/28/18 11:00 Dose: 1 cap Ferrous Gluconate (Fergon) 324 mg PO TID [facility] Last Admin: 05/29/18 17:04 Dose: Not Given Hydroxyurea (Hydrea) 500 mg PO BID [facility] Last Admin: 05/15/18 10:00 Dose: 500 mg Phenylephrine HCl 30 mg/ (Sodium Chloride) 250 mls @ 10 mls/hr IV .Q24H PRN; Protocol PRN Reason: TITRATE PER MD ORDER Last Titration: 05/29/18 18:58 Dose: 40 mcg/min, 20 mls/hr Methylprednisolone (Solu-Medrol) 30 mg IV Q8H [facility] Last Admin: 05/29/18 19:46 Dose: 30 mg Pantoprazole Sodium (Protonix Ec Tab) 40 mg PO DAILY [facility] Last Admin: 05/29/18 09:59 Dose: 40 mg Tramadol HCl (Ultram) 25 mg NG TID PRN PRN Reason: Pain, severe (8-10) Last Admin: 05/27/18 08:53 Dose: 25 mg Verapamil HCl (Verapamil Inj) 2.5 mg IVP Q4H PRN PRN Reason: Heart rate Last Admin: 05/27/18 09:06 Dose: 2.5 mg Vitamin B Complex/Vit C/Folic Acid (Nephro-Charlie) 1 tab PO 0800 [facility] Last Admin: 05/29/18 08:35 Dose: 1 tab - Labs Labs: 05/29/18 06:30 05/29/18 06:30 PT 23.4 SECONDS (9.7-12.2) H 05/28/18 03:58 INR 2.1 05/28/18 03:58 APTT 38 SECONDS (21-34) H 05/28/18 03:58
--- NOTE | 2018-05-29 23:18 | CP.PCM.PN ---
Subjective - Date & Time of Evaluation Date of Evaluation: 05/29/18 Time of Evaluation: 16:15 - Subjective Subjective: Patient seen and evaluated Not in distress supportive care Objective - Vital Signs/Intake and Output Vital Signs (last 24 hours): Temp Pulse Resp BP Pulse Ox 99.1 F 99 H 22 104/61 92 L 05/29/18 20:00 05/29/18 22:08 05/29/18 22:08 05/29/18 22:08 05/29/18 22:08 Intake and Output: 05/29/18 05/30/18 18:59 06:59 Intake Total 540 80 Output Total 90 10 Balance 450 70 - Medications Medications: Current Medications Acetaminophen (Tylenol 325mg Tab) 650 mg PO Q6 PRN PRN Reason: Fever >100.4 F Last Admin: 05/19/18 19:00 Dose: 650 mg Albumin Human (Albumin Human 25% (12.5 Gm/50 Ml)) 25 gm IV DAILY PRN PRN Reason: WITH HD IF BP BELOW 90/50 Last Admin: 05/29/18 14:46 Dose: 25 gm Albuterol/Ipratropium (Duoneb 3 Mg/0.5 Mg (3 Ml) Ud) 3 ml INH RQ6 [facility] Last Admin: 05/29/18 19:49 Dose: Not Given Enoxaparin Sodium (Lovenox) 30 mg SC DAILY [facility] Last Admin: 05/21/18 10:40 Dose: 30 mg Ergocalciferol (Drisdol 50,000 Intl Units Cap) 1 cap PO Q7D [facility] Last Admin: 05/28/18 11:00 Dose: 1 cap Ferrous Gluconate (Fergon) 324 mg PO TID [facility] Last Admin: 05/29/18 17:04 Dose: Not Given Hydroxyurea (Hydrea) 500 mg PO BID [facility] Last Admin: 05/15/18 10:00 Dose: 500 mg Phenylephrine HCl 30 mg/ (Sodium Chloride) 250 mls @ 10 mls/hr IV .Q24H PRN; Protocol PRN Reason: TITRATE PER MD ORDER Last Titration: 05/29/18 18:58 Dose: 40 mcg/min, 20 mls/hr Methylprednisolone (Solu-Medrol) 30 mg IV Q8H [facility] Last Admin: 05/29/18 19:46 Dose: 30 mg Pantoprazole Sodium (Protonix Ec Tab) 40 mg PO DAILY [facility] Last Admin: 05/29/18 09:59 Dose: 40 mg Tramadol HCl (Ultram) 25 mg NG TID PRN PRN Reason: Pain, severe (8-10) Last Admin: 05/27/18 08:53 Dose: 25 mg Verapamil HCl (Verapamil Inj) 2.5 mg IVP Q4H PRN PRN Reason: Heart rate Last Admin: 05/27/18 09:06 Dose: 2.5 mg Vitamin B Complex/Vit C/Folic Acid (Nephro-Charlie) 1 tab PO 0800 [facility] Last Admin: 05/29/18 08:35 Dose: 1 tab - Labs Labs: 05/29/18 06:30 05/29/18 06:30 PT 23.4 SECONDS (9.7-12.2) H 05/28/18 03:58 INR 2.1 05/28/18 03:58 APTT 38 SECONDS (21-34) H 05/28/18 03:58
[2018-05-30] MEDS ORDERED: HYDROmorphone 0.5 mg/0.5 ml ISec IVP STA (01:06)
[2018-05-30] MEDS: Albuterol-Ipratrop 3 mg / 0.5 (3 ml) UD INH SCH ×2 (01:09→08:19)
[2018-05-30] MEDS: Phenylephrine 30 MG in Sodium Chloride 0.9% 247 ML IV PRN ×2 (03:36→08:06)
[2018-05-30] MEDS: MethylPREDNISolone 40 mg Vial IV SCH (05:44)
[2018-05-30 06:38] LABS: BASO # 0.6 K/uL (0.0-0.2); BASO % 0.8 % (0.0-2.0); EOS # 0.1 K/uL (0.0-0.7); EOS % 0.2 % (0.0-4.0); LYMPH # 1.8 K/uL (1.0-4.3); LYMPH % 2.5 % (20.0-40.0); MEAN CELL VOLUME 101.2 fL (81.0-99.0); MEAN CORPUSCULAR HEMOGLOBIN 30.2 pg (27.0-31.0); MEAN CORPUSCULAR HGB CONC 29.8 g/dL (33.0-37.0); MEAN PLATELET VOLUME 11.7 fL (7.2-11.7); MONO # 8.6 K/uL (0.0-0.8); MONO % 12.2 % (0.0-10.0); NEUT # 59.4 K/uL (1.8-7.0); NEUT % 84.3 % (50.0-75.0); NRBC % 62.7 % (0.0-2.0); RED CELL DISTRIBUTION WIDTH 20.5 % (11.5-14.5)
[2018-05-30 06:49] LABS: WHITE BLOOD COUNT 70.4 K/uL (4.8-10.8)
[2018-05-30 06:50] LABS: PLATELET COUNT 11 K/uL (130-400)
[2018-05-30 06:59] LABS: ALB/GLOB RATIO 1.1 (1.0-2.1); ALBUMIN 2.8 g/dL (3.5-5.0); CALCIUM 8.1 mg/dl (8.6-10.4)
[2018-05-30] MEDS: Multivitamin Vitamin B Complex (Nephro-Vite) Tab PO SCH (07:42)
[2018-05-30] MEDS ORDERED: Acetaminophen IV 1,000 MG in Premixed IV 1 EA IV ONE (08:00)
[2018-05-30] MEDS ORDERED: Dextrose 50% SYRINGE Inj (50 ml) IV STA (09:07)
[2018-05-30] MEDS ORDERED: (Novolog) Insulin Aspart, Recombinant 100 u/ml 10 ml vial SC STA (09:08)
[2018-05-30] MEDS ORDERED: HYDROmorphone 0.5 mg/0.5 ml ISec IVP PRN (09:09)
[2018-05-30] MEDS ORDERED: (Novolin R) Insulin Human Regular 100 units/ml vial IVP ONE (09:16)
[2018-05-30 09:23] LABS: ANISOCYTOSIS MODERATE; BANDS 12 % (0-2); HYPOCHROMIC SLIGHT; LYMPHOCYTE 1 % (20-40); MONOCYTE 32 % (0-10); NEUTROPHIL 55 % (50-75); NUCLEATED RED BLOOD CELL 118 % (0-0); PLATELET ESTIMATE MARKEDLY DECREASED (NORMAL); POLYCHROMIC SLIGHT; TOTAL CELLS COUNTED 100
[2018-05-30 09:25] LABS: TOXIC GRANULATION PRESENT
[2018-05-30 10:17] VITALS: TEMP 99.8
--- NOTE | 2018-05-30 10:32 | CP.CCUPN ---
CCU Subjective - Physician Review Subjective (Free Text): Resident Critical Care Progress Note Patient examined at bedside. Patient resting in bed with nonrebreather mask. Patient's son and daughter were informed of patient's condition and prognosis. They expressed understanding and requested comfort care measures. Critical Care Time Spent (in minutes): 35 CCU Objective - Vital Signs / Intake & Output Vital Signs (Last 4 hours): Vital Signs Temp Pulse Resp BP Pulse Ox 05/30/18 10:00 104 H 24 94 L 05/30/18 09:58 101 H 23 83/41 L 94 L 05/30/18 09:28 102 H 21 85/39 L 94 L 05/30/18 09:00 99.8 F H 103 H 23 94 L 05/30/18 08:58 104 H 23 87/37 L 95 05/30/18 08:28 105 H 24 91/44 L 94 L 05/30/18 08:06 105 H 26 H 88/43 L 90 L 05/30/18 08:00 101.6 F H 105 H 27 H 89 L 05/30/18 07:55 107 H 26 H 88/43 L 97 05/30/18 07:53 105 H 27 H 95 05/30/18 07:38 109 H 32 H 95/49 L 81 L 05/30/18 07:08 108 H 39 H 98/46 L 93 L 05/30/18 07:00 109 H 32 H 95 05/30/18 06:53 110 H 35 H 99/49 L 93 L 05/30/18 06:38 109 H 35 H 95/46 L 98 Intake and Output (Last 8hrs): Intake & Output 05/29/18 05/30/18 05/30/18 22:59 06:59 14:59 Intake Total 320 477.6 625.4 Output Total 20 5 0 Balance 300 472.6 625.4 Weight 200 lb Intake: IV 90 234.6 275.4 Intake, IV Amount 230 243 350 Right Distal Port PICC 130 243 250 Right Proximal Port PICC 100 0 100 Oral 0 0 0 Output: Urine 20 5 0 Urethral (Addison) 20 5 0 Other: # Bowel Movements 0 0 0 - Physical Exam Head: Positive for: Atraumatic, Normocephalic Pupils: Positive for: PERRL Extroacular Muscles: Positive for: EOMI Conjunctiva: Positive for: Normal Ears: Positive for: Normal Mouth: Positive for: Moist Mucous Membranes Nose (External): Positive for: Atraumatic Neck: Positive for: Normal Range of Motion Respiratory/Chest: Positive for: Good Air Exchange, Rhonchi. Negative for: Respiratory Distress Cardiovascular: Positive for: Regular Rate and Rhythm, Normal S1, S2, Tachycardic Abdomen: Positive for: Tenderness (diffuse ), Distention. Negative for: Peritoneal Signs, Rebound Upper Extremity: Positive for: Normal Inspection. Negative for: Cyanosis, Edema Lower Extremity: Positive for: Normal Inspection, Edema. Negative for: CALF TENDERNESS Neurological: Positive for: GCS=15, CN II-XII Intact, Speech Normal Skin: Positive for: Dry, Normal Color. Negative for: Rashes Psychiatric: Positive for: Alert, Oriented x 3 - Medications Active Medications: Active Medications Generic Name Dose Route Start Last Admin Trade Name Freq PRN Reason Stop Dose Admin Hydromorphone HCl 0.5 mg 05/30/18 09:09 Dilaudid IVP Q4H PRN Pain, severe (8-10) - Patient Studies Lab Studies: Microbiology Studies 05/27/18 20:03 Blood Culture - Preliminary Blood NO GROWTH AFTER 48 HOURS 05/27/18 20:03 Blood Culture - Preliminary Blood NO GROWTH AFTER 48 HOURS 05/27/18 21:16 Urine Culture - Final Urine No Growth (<1,000 CFU/ML) Lab Studies 05/30/18 05/30/18 05/29/18 Range/Units 06:32 06:31 06:30 WBC 70.4 H* 83.3 H* (4.8-10.8) K/uL RBC 4.30 (3.80-5.20) Mil/uL Hgb 13.0 (11.0-16.0) g/dL Hct 43.6 (34.0-47.0) % MCV 101.2 H D (81.0-99.0) fL MCH 30.2 (27.0-31.0) pg MCHC 29.8 L (33.0-37.0) g/dL RDW 20.5 H (11.5-14.5) % Plt Count 11 L* D (130-400) K/uL MPV 11.7 (7.2-11.7) fL Neut % (Auto) 84.3 H (50.0-75.0) % Lymph % (Auto) 2.5 L (20.0-40.0) % Mercer % (Auto) 12.2 H (0.0-10.0) % Eos % (Auto) 0.2 (0.0-4.0) % Baso % (Auto) 0.8 (0.0-2.0) % Neut # (Auto) 59.4 H (1.8-7.0) K/uL Lymph # (Auto) 1.8 (1.0-4.3) K/uL Mercer # (Auto) 8.6 H (0.0-0.8) K/uL Eos # (Auto) 0.1 (0.0-0.7) K/uL Baso # (Auto) 0.6 H (0.0-0.2) K/uL Neutrophils % (Manual) 55 (50-75) % Band Neutrophils % 12 H* (0-2) % Lymphocytes % (Manual) 1 L (20-40) % Monocytes % (Manual) 32 H (0-10) % Nucleated RBC % 118 H (0-0) % Toxic Granulation Present Platelet Estimate Markedly decreased L (NORMAL) Polychromasia Slight Hypochromasia (manual) Slight Anisocytosis (manual) Moderate Macrocytosis (manual) Moderate Sodium 139 (132-148) mmol/L Potassium 5.7 H (3.6-5.2) mmol/L Chloride 103 (98-107) mmol/L Carbon Dioxide 16 L (22-30) mmol/L Anion Gap 26 H (10-20) BUN 115 H* (7-17) mg/dL Creatinine 3.2 H (0.7-1.2) mg/dL Est GFR ( Amer) 17 Est GFR (Non-Af Amer) 14 Random Glucose 134 H (65-105) mg/dL Calcium 8.1 L (8.6-10.4) mg/dl Phosphorus 7.1 H (2.5-4.5) mg/dL Magnesium 2.2 (1.6-2.3) mg/dL Total Bilirubin 4.8 H (0.2-1.3) mg/dL AST 42 H D (14-36) U/L ALT 27 (9-52) U/L Alkaline Phosphatase 86 (38-126) U/L Total Protein 5.4 L (6.3-8.3) g/dL Albumin 2.8 L (3.5-5.0) g/dL Globulin 2.6 (2.2-3.9) gm/dL Albumin/Globulin Ratio 1.1 (1.0-2.1) Laboratory Results - last 24 hr 05/29/18 05/30/18 05/30/18 06:30 06:31 06:32 WBC 83.3 H* 70.4 H* RBC 4.30 Hgb 13.0 Hct 43.6 MCV 101.2 H D MCH 30.2 MCHC 29.8 L RDW 20.5 H Plt Count 11 L* D MPV 11.7 Neut % (Auto) 84.3 H Lymph % (Auto) 2.5 L Mercer % (Auto) 12.2 H Eos % (Auto) 0.2 Baso % (Auto) 0.8 Neut # (Auto) 59.4 H Lymph # (Auto) 1.8 Mercer # (Auto) 8.6 H Eos # (Auto) 0.1 Baso # (Auto) 0.6 H Neutrophils % (Manual) 55 Band Neutrophils % 12 H* Lymphocytes % (Manual) 1 L Monocytes % (Manual) 32 H Nucleated RBC % 118 H Toxic Granulation Present Platelet Estimate Markedly decreased L Polychromasia Slight Hypochromasia (manual) Slight Anisocytosis (manual) Moderate Macrocytosis (manual) Moderate Sodium 139 Potassium 5.7 H Chloride 103 Carbon Dioxide 16 L Anion Gap 26 H BUN 115 H* Creatinine 3.2 H Est GFR ( Amer) 17 Est GFR (Non-Af Amer) 14 Random Glucose 134 H Calcium 8.1 L Phosphorus 7.1 H Magnesium 2.2 Total Bilirubin 4.8 H AST 42 H D ALT 27 Alkaline Phosphatase 86 Total Protein 5.4 L Albumin 2.8 L Globulin 2.6 Albumin/Globulin Ratio 1.1 Review of Systems - Review of Systems All systems: reviewed and no additional remarkable complaints except (as stated in HPI) Critical Care Progress Note - Nutrition Nutrition: Nutrition Category Date Time Status Renal Diet [DIET] Diets 05/29/18 Lunch Active Assessment/Plan - Date & Time Date: 05/30/18 Time: 08:00
[2018-05-30 12:12] VITALS: BP 56/25
--- NOTE | 2018-05-30 12:18 | CP.PCM.PN ---
Subjective - Date & Time of Evaluation Date of Evaluation: 05/30/18 Time of Evaluation: 10:00 - Subjective Subjective: Palliative care progress note Patient remains in bed, alert, looking very ill. SBP in low 80' , despite 2 pressors already on board. Fingers and nail beds are becoming cyanotic. WBC in 70's, BUN/Sap [employer] elevated. Urine output 185 cc yesterday. PO intake poor. Patient's son at bed side. I reviewed patient's condition with him and suggested that his mother's condition was worsening despite all aggressive interventions applied. Comfort measures discussed. I offered a lot of information about comfort care. The son said he had agreed with his sister Sadiq ( the ICU nurse), That they would want us to promote natural for their mother. Son said " we do not want her to suffer any more". I explained that we were to stop pressors w hat will cause BP o drop and may occur. he stated understanding asking again for peaceful . This was shared with Doctor Kareem, [employer] [place] and nursing. Orders for comfort care placed in. Impression * Chronically ill lady approaching end of her life * Severe Leucocytosis * Anemia * Hypotension Suggestion * Would stop all pressors * Comfort measures only * Morphine Iv PRN respiratory distress * Promote peaceful Advance care planing 30 min Objective - Vital Signs/Intake and Output Vital Signs (last 24 hours): Temp Pulse Resp BP Pulse Ox 99.8 F H 86 13 56/25 L 79 L 05/30/18 09:00 05/30/18 12:00 05/30/18 12:00 05/30/18 11:58 05/30/18 12:00 Intake and Output: 05/30/18 05/30/18 06:59 18:59 Intake Total 557.6 765.4 Output Total 15 0 Balance 542.6 765.4 - Medications Medications: Current Medications Hydromorphone HCl (Dilaudid) 0.5 mg IVP Q4H PRN PRN Reason: Pain, severe (8-10) - Labs Labs: 05/30/18 06:31 05/30/18 06:32 PT 23.4 SECONDS (9.7-12.2) H 05/28/18 03:58 INR 2.1 05/28/18 03:58 APTT 38 SECONDS (21-34) H 05/28/18 03:58
--- NOTE | 2018-05-30 12:22 | CP.PCM.PN ---
Subjective - Date & Time of Evaluation Date of Evaluation: 05/28/18 Time of Evaluation: 20:00 - Subjective Subjective: Fatigued, initiated on dialysis Objective - Vital Signs/Intake and Output Vital Signs (last 24 hours): Temp Pulse Resp BP Pulse Ox 99.8 F H 86 13 56/25 L 79 L 05/30/18 09:00 05/30/18 12:00 05/30/18 12:00 05/30/18 11:58 05/30/18 12:00 Intake and Output: 05/30/18 05/30/18 06:59 18:59 Intake Total 557.6 765.4 Output Total 15 0 Balance 542.6 765.4 - Medications Medications: Current Medications Hydromorphone HCl (Dilaudid) 0.5 mg IVP Q4H PRN PRN Reason: Pain, severe (8-10) - Labs Labs: 05/30/18 06:31 05/30/18 06:32 PT 23.4 SECONDS (9.7-12.2) H 05/28/18 03:58 INR 2.1 05/28/18 03:58 APTT 38 SECONDS (21-34) H 05/28/18 03:58 - Head Exam Head Exam: ATRAUMATIC - Eye Exam Eye Exam: Normal appearance - ENT Exam ENT Exam: Mucous Membranes Dry - Respiratory Exam Respiratory Exam: Decreased Breath Sounds - Cardiovascular Exam Cardiovascular Exam: +S1, +S2 - GI/Abdominal Exam GI & Abdominal Exam: Normal Bowel Sounds - Extremities Exam Extremities Exam: Pedal Edema Assessment and Plan (1) Thrombocytopenia Assessment & Plan: 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
--- NOTE | 2018-05-30 12:23 | CP.PCM.PN ---
Subjective - Date & Time of Evaluation Date of Evaluation: 05/29/18 Time of Evaluation: 20:00 - Subjective Subjective: Fatigued Objective - Vital Signs/Intake and Output Vital Signs (last 24 hours): Temp Pulse Resp BP Pulse Ox 99.8 F H 86 13 56/25 L 79 L 05/30/18 09:00 05/30/18 12:00 05/30/18 12:00 05/30/18 11:58 05/30/18 12:00 Intake and Output: 05/30/18 05/30/18 06:59 18:59 Intake Total 557.6 765.4 Output Total 15 0 Balance 542.6 765.4 - Medications Medications: Current Medications Hydromorphone HCl (Dilaudid) 0.5 mg IVP Q4H PRN PRN Reason: Pain, severe (8-10) - Labs Labs: 05/30/18 06:31 05/30/18 06:32 PT 23.4 SECONDS (9.7-12.2) H 05/28/18 03:58 INR 2.1 05/28/18 03:58 APTT 38 SECONDS (21-34) H 05/28/18 03:58 - Head Exam Head Exam: ATRAUMATIC - Eye Exam Eye Exam: Normal appearance - ENT Exam ENT Exam: Mucous Membranes Dry - Respiratory Exam Respiratory Exam: NORMAL BREATHING PATTERN - Cardiovascular Exam Cardiovascular Exam: +S1, +S2 - GI/Abdominal Exam GI & Abdominal Exam: Normal Bowel Sounds - Extremities Exam Extremities Exam: Pedal Edema Assessment and Plan (1) Thrombocytopenia Assessment & Plan: 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
--- NOTE | 2018-05-30 12:25 | CP.PCM.PN ---
Subjective - Date & Time of Evaluation Date of Evaluation: 05/30/18 Time of Evaluation: 12:15 - Subjective Subjective: fatigued, on pressors Objective - Vital Signs/Intake and Output Vital Signs (last 24 hours): Temp Pulse Resp BP Pulse Ox 99.8 F H 86 13 56/25 L 79 L 05/30/18 09:00 05/30/18 12:00 05/30/18 12:00 05/30/18 11:58 05/30/18 12:00 Intake and Output: 05/30/18 05/30/18 06:59 18:59 Intake Total 557.6 765.4 Output Total 15 0 Balance 542.6 765.4 - Medications Medications: Current Medications Hydromorphone HCl (Dilaudid) 0.5 mg IVP Q4H PRN PRN Reason: Pain, severe (8-10) - Labs Labs: 05/30/18 06:31 05/30/18 06:32 PT 23.4 SECONDS (9.7-12.2) H 05/28/18 03:58 INR 2.1 05/28/18 03:58 APTT 38 SECONDS (21-34) H 05/28/18 03:58 - Head Exam Head Exam: ATRAUMATIC - Eye Exam Eye Exam: Normal appearance - ENT Exam ENT Exam: Mucous Membranes Dry - Respiratory Exam Respiratory Exam: NORMAL BREATHING PATTERN - Cardiovascular Exam Cardiovascular Exam: +S1, +S2 - GI/Abdominal Exam GI & Abdominal Exam: Normal Bowel Sounds - Extremities Exam Extremities Exam: Pedal Edema Assessment and Plan (1) Thrombocytopenia Assessment & Plan: secondary to myelofibrosis splenic sequestration from splenomegaly transfusion support for plt > 20,000 Status: Acute (2) Leucocytosis Assessment & Plan: from myelofibrosis s/p steroids and ABX Status: Acute (3) Anemia Assessment & Plan: chronic disease, anemia of CKD - SOFIA on hold splenic sequestration possible hemorrhage into infarcted spleen Status: Acute (4) DVT (deep venous thrombosis) Assessment & Plan: anticoagulation held for possible bleeding Status: Acute (5) Myelofibrosis Assessment & Plan: Jakafi and hydrea on hold Status: Acute
--- NOTE | 2018-05-30 13:11 | CP.PCM.PN ---
Subjective - Date & Time of Evaluation Date of Evaluation: 05/30/18 Time of Evaluation: 13:10 - Subjective Subjective: Nephrology Consultation Note: Assessment: terminal oliguric Acute Kidney Injury (N17.9) likely due to ATN/sepsis with UTI, low BP, pre-renal state started dialysis 05/29/18 Metabolic acidosis, Hyponatremia Hypertensive Chronic Kidney Disease (I12.9) Chronic Kidney Disease (N18.3) Stage 3 with ? 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 Please call if any Qs. d/w team and family Dr Espinoza Wylie Office: [phone] Chief Complaint; pain abdomen Reason for consult: Acute Kidney Injury HPI: Pt is a 67 F with hx of HTN,myelofibrosis admitted recently in april with right flank pain, right hydronephrosis/pyelonephritis and Ureteral stricture s/p stent, hospital course was complicated by atrial fibrillation, right lower extremity DVT on anticoagulant developed Splenic hemorrhage s/p splenic artery embolization, hence systemic a/c was stopped. pt also with hepatosplenomegaly and extensive varices, anemia/thrombocytopenia admitted with sepsis with kelbsiella due to UTI pt also with CKD stage 3 with baseline cr 1.8-2.0 since hospitalization with AKIs Denies OTC/herbal meds or NSAIDs No recent iodinated contrast exposure. Noted obvious episodes of low BP. son bedside and helped in interpretations pt not good historian. ROS: pt terminal and on comfort measures only Physical Examination: appears terminal. family bedside intermittently gasping for air BP low Labs/imaging reviewed. Past medical history, past surgical history, family history, social history, allergy reviewed and noted as below Family hx: no hx of CKD. Rest non-contributory echo moderate pHTN, normal LVEF UA 2+ protein 3+ blood TRACEY/ANCA and Hep B/C neg Fena 0.5% Objective - Vital Signs/Intake and Output Vital Signs (last 24 hours): Temp Pulse Resp BP Pulse Ox 99.8 F H 86 13 56/25 L 79 L 05/30/18 09:00 05/30/18 12:00 05/30/18 12:00 05/30/18 11:58 05/30/18 12:00 Intake and Output: 05/30/18 05/30/18 06:59 18:59 Intake Total 557.6 765.4 Output Total 15 0 Balance 542.6 765.4 - Medications Medications: Current Medications Hydromorphone HCl (Dilaudid) 0.5 mg IVP Q4H PRN PRN Reason: Pain, severe (8-10) - Labs Labs: 05/30/18 06:31 05/30/18 06:32 PT 23.4 SECONDS (9.7-12.2) H 05/28/18 03:58 INR 2.1 05/28/18 03:58 APTT 38 SECONDS (21-34) H 05/28/18 03:58
--- NOTE | 2018-05-30 13:25 | CP.CCUPN ---
CCU Subjective - Physician Review Subjective (Free Text): Resident Critical Care Progress Note Patient examined at bedside. Patient resting in bed with nonrebreather mask. Patient's son and daughter were informed of patient's condition and prognosis. They expressed understanding and requested comfort care measures. Patient at 13:12. Critical Care Time Spent (in minutes): 35 CCU Objective - Vital Signs / Intake & Output Vital Signs (Last 4 hours): Vital Signs Pulse Resp BP Pulse Ox 05/30/18 12:00 86 13 79 L 05/30/18 11:58 87 13 56/25 L 77 L 05/30/18 11:28 101 H 23 76/34 L 93 L 05/30/18 11:00 103 H 23 93 L 05/30/18 10:58 101 H 23 80/39 L 93 L 05/30/18 10:28 102 H 22 81/36 L 93 L 05/30/18 10:00 104 H 24 94 L 05/30/18 09:58 101 H 23 83/41 L 94 L 05/30/18 09:28 102 H 21 85/39 L 94 L Intake and Output (Last 8hrs): Intake & Output 05/29/18 05/30/18 05/30/18 22:59 06:59 14:59 Intake Total 320 477.6 765.4 Output Total 20 5 0 Balance 300 472.6 765.4 Weight 200 lb Intake: IV 90 234.6 325.4 Intake, IV Amount 230 243 440 Right Distal Port PICC 130 243 340 Right Proximal Port PICC 100 0 100 Oral 0 0 0 Output: Urine 20 5 0 Urethral (Addison) 20 5 0 Other: # Bowel Movements 0 0 0 - Physical Exam Head: Positive for: Atraumatic, Normocephalic Pupils: Positive for: PERRL Extroacular Muscles: Positive for: EOMI Conjunctiva: Positive for: Normal Ears: Positive for: Normal Mouth: Positive for: Moist Mucous Membranes Nose (External): Positive for: Atraumatic Neck: Positive for: Normal Range of Motion Respiratory/Chest: Positive for: Good Air Exchange, Rhonchi. Negative for: Resp iratory Distress Cardiovascular: Positive for: Regular Rate and Rhythm, Normal S1, S2, Tachycardic Abdomen: Positive for: Tenderness (diffuse ), Distention. Negative for: Peritoneal Signs, Rebound Upper Extremity: Positive for: Normal Inspection. Negative for: Cyanosis, Edema Lower Extremity: Positive for: Normal Inspection, Edema. Negative for: CALF TENDERNESS Neurological: Positive for: GCS=15, CN II-XII Intact, Speech Normal Skin: Positive for: Dry, Normal Color. Negative for: Rashes Psychiatric: Positive for: Alert, Oriented x 3 - Medications Active Medications: Active Medications Generic Name Dose Route Start Last Admin Trade Name Freq PRN Reason Stop Dose Admin Hydromorphone HCl 0.5 mg 05/30/18 09:09 Dilaudid IVP Q4H PRN Pain, severe (8-10) - Patient Studies Lab Studies: Microbiology Studies 05/27/18 20:03 Blood Culture - Preliminary Blood NO GROWTH AFTER 48 HOURS 05/27/18 20:03 Blood Culture - Preliminary Blood NO GROWTH AFTER 48 HOURS Lab Studies 05/30/18 05/30/18 05/29/18 Range/Units 06:32 06:31 06:30 WBC 70.4 H* 83.3 H* (4.8-10.8) K/uL RBC 4.30 (3.80-5.20) Mil/uL Hgb 13.0 (11.0-16.0) g/dL Hct 43.6 (34.0-47.0) % MCV 101.2 H D (81.0-99.0) fL MCH 30.2 (27.0-31.0) pg MCHC 29.8 L (33.0-37.0) g/dL RDW 20.5 H (11.5-14.5) % Plt Count 11 L* D (130-400) K/uL MPV 11.7 (7.2-11.7) fL Neut % (Auto) 84.3 H (50.0-75.0) % Lymph % (Auto) 2.5 L (20.0-40.0) % Cochran % (Auto) 12.2 H (0.0-10.0) % Eos % (Auto) 0.2 (0.0-4.0) % Baso % (Auto) 0.8 (0.0-2.0) % Neut # (Auto) 59.4 H (1.8-7.0) K/uL Lymph # (Auto) 1.8 (1.0-4.3) K/uL Cochran # (Auto) 8.6 H (0.0-0.8) K/uL Eos # (Auto) 0.1 (0.0-0.7) K/uL Baso # (Auto) 0.6 H (0.0-0.2) K/uL Neutrophils % (Manual) 55 (50-75) % Band Neutrophils % 12 H* (0-2) % Lymphocytes % (Manual) 1 L (20-40) % Monocytes % (Manual) 32 H (0-10) % Nucleated RBC % 118 H (0-0) % Toxic Granulation Present Platelet Estimate Markedly decreased L (NORMAL) Polychromasia Slight Hypochromasia (manual) Slight Anisocytosis (manual) Moderate Macrocytosis (manual) Moderate Sodium 139 (132-148) mmol/L Potassium 5.7 H (3.6-5.2) mmol/L Chloride 103 (98-107) mmol/L Carbon Dioxide 16 L (22-30) mmol/L Anion Gap 26 H (10-20) BUN 115 H* (7-17) mg/dL Creatinine 3.2 H (0.7-1.2) mg/dL Est GFR ( Amer) 17 Est GFR (Non-Af Amer) 14 Random Glucose 134 H (65-105) mg/dL Calcium 8.1 L (8.6-10.4) mg/dl Phosphorus 7.1 H (2.5-4.5) mg/dL Magnesium 2.2 (1.6-2.3) mg/dL Total Bilirubin 4.8 H (0.2-1.3) mg/dL AST 42 H D (14-36) U/L ALT 27 (9-52) U/L Alkaline Phosphatase 86 (38-126) U/L Total Protein 5.4 L (6.3-8.3) g/dL Albumin 2.8 L (3.5-5.0) g/dL Globulin 2.6 (2.2-3.9) gm/dL Albumin/Globulin Ratio 1.1 (1.0-2.1) Laboratory Results - last 24 hr 05/29/18 05/30/18 05/30/18 06:30 06:31 06:32 WBC 83.3 H* 70.4 H* RBC 4.30 Hgb 13.0 Hct 43.6 MCV 101.2 H D MCH 30.2 MCHC 29.8 L RDW 20.5 H Plt Count 11 L* D MPV 11.7 Neut % (Auto) 84.3 H Lymph % (Auto) 2.5 L Cochran % (Auto) 12.2 H Eos % (Auto) 0.2 Baso % (Auto) 0.8 Neut # (Auto) 59.4 H Lymph # (Auto) 1.8 Cochran # (Auto) 8.6 H Eos # (Auto) 0.1 Baso # (Auto) 0.6 H Neutrophils % (Manual) 55 Band Neutrophils % 12 H* Lymphocytes % (Manual) 1 L Monocytes % (Manual) 32 H Nucleated RBC % 118 H Toxic Granulation Present Platelet Estimate Markedly decreased L Polychromasia Slight Hypochromasia (manual) Slight Anisocytosis (manual) Moderate Macrocytosis (manual) Moderate Sodium 139 Potassium 5.7 H Chloride 103 Carbon Dioxide 16 L Anion Gap 26 H BUN 115 H* Creatinine 3.2 H Est GFR ( Amer) 17 Est GFR (Non-Af Amer) 14 Random Glucose 134 H Calcium 8.1 L Phosphorus 7.1 H Magnesium 2.2 Total Bilirubin 4.8 H AST 42 H D ALT 27 Alkaline Phosphatase 86 Total Protein 5.4 L Albumin 2.8 L Globulin 2.6 Albumin/Globulin Ratio 1.1 Review of Systems - Review of Systems All systems: reviewed and no additional remarkable complaints except (as stated in HPI) Critical Care Progress Note - Nutrition Nutrition: Nutrition Category Date Time Status Renal Diet [DIET] Diets 05/29/18 Lunch Active Assessment/Plan - Assessment and Plan (Free Text) Assessment: 67 year old female with a PMHx of myelofibrosis, HTN, renal insufficiency admitted with fever and UTI. Urine culture from 05/11/18 grew Enterococcus f aecalis and Klebsiella pneumoniae, found to have large infarcted spleen. On previous admission patient had splenic embolization. Plan: Neuro: - AAO x3 Pulm: - nasal cannula as tolerated - Duonebs 3 ml INH RQ6 CV: - currently hemodynamically stable, however having continuous episodes of tachycardia - Verapamil 2.5 mg IV Q4H PRN - Digoxin 0.5 mg IVP given once GI: - s/p IR splenic artery embolization, now with inflammatory infarcting spleen. Morbidity is now high. family does not want splenectomy - methylprednisolone 30 mg IV Q8H - Protonix 40 mg PO daily Renal: - SOFIA, oliguria - Nephrology Dr. Wylie consulted. Recs appreciated. - s/p dialysis cath placement yesterday - pt could not tolerate second HD due to tachycardia ID: - ID Dr. Jackson consulted. Recs appreciated. - Was on Avycaz and metronidazole Heme/Onc - Hx of myelofibrosis with chronic leukocytosis - Dr. Mcbride consulted. Recs appreciated. - Holding Hydrea Jakafi - Ferrous gluconate 324 mg PO TID - 21 mcg desmopressin administered for thrombocytopenia Endo: - Maintain euglycemia PPX: Protonix 40 mg PO daily, Lovenox 30 mg SC daily held Case and plan was reviewed and discussed with Dr. Kareem Meza PGY-1 - Date & Time Date: 05/30/18 Time: 08:00
[2018-05-30 13:36] VITALS: PULSE 59; RESP 7; O2SAT 89
--- NOTE | 2018-06-04 00:21 | OP ---
PROCEDURE DATE: 05/28/2018 PREOPERATIVE DIAGNOSIS: Renal failure. POSTOPERATIVE DIAGNOSIS: Renal failure. PROCEDURE CARRIED OUT: Placement of right femoral ULDALL catheter with micropuncture technique and ultrasound guidance. DESCRIPTION OF PROCEDURE: The patient was given local anesthesia. Using ultrasound guidance and micropuncture technique, the right common femoral vein was punctured. The catheter was then advanced centrally. It was secured to the skin, flushed with heparinized saline with good return. Blood loss during the procedure was 10 mL. Operation carried out, placement of right femoral ULDALL catheter with micropuncture technique and ultrasound guidance. Aidan Ramirez Jr., MD MTDD
== END 2018-05-30 14:00 | DRG 720 ==
LOC: C.ER 20:40 → C.9I 21:54
PROVIDERS: ADMIT Internal Medicine Nephrology; ATTEND Internal Medicine Nephrology
PROC: 02HV33Z Insertion of Infusion Device into Superior Vena Cava, Percutaneous Approach (ICD-10-PCS; 2018-05-21)
PROC: 30233N1 Transfusion of Nonautologous Red Blood Cells into Peripheral Vein, Percutaneous Approach (ICD-10-PCS; 2018-05-22)
PROC: 30233R1 Transfusion of Nonautologous Platelets into Peripheral Vein, Percutaneous Approach (ICD-10-PCS; 2018-05-28)
PROC: 05HY33Z Insertion of Infusion Device into Upper Vein, Percutaneous Approach (ICD-10-PCS; 2018-05-28)
PROC: 3E033XZ Introduction of Vasopressor into Peripheral Vein, Percutaneous Approach (ICD-10-PCS; principal; 2018-05-29)
PROC: 5A1D70Z Performance of Urinary Filtration, Intermittent, Less than 6 Hours Per Day (ICD-10-PCS; 2018-05-29)
DX: A41.89 Other specified sepsis (principal); N17.0 Acute kidney failure with tubular necrosis; R65.21 Severe sepsis with septic shock; I13.2 Hypertensive heart and chronic kidney disease with heart failure and with stage 5 chronic kidney disease, or end stage renal disease; D61.818 Other pancytopenia; E87.2 Acidosis; N18.6 End stage renal disease; I31.3 Pericardial effusion (noninflammatory); I50.32 Chronic diastolic (congestive) heart failure; I82.401 Acute embolism and thrombosis of unspecified deep veins of right lower extremity; E87.1 Hypo-osmolality and hyponatremia; I13.0 Hypertensive heart and chronic kidney disease with heart failure and stage 1 through stage 4 chronic kidney disease, or unspecified chronic kidney disease; E11.22 Type 2 diabetes mellitus with diabetic chronic kidney disease; N11.1 Chronic obstructive pyelonephritis; D75.81 Myelofibrosis; D63.1 Anemia in chronic kidney disease; D73.5 Infarction of spleen; I48.0 Paroxysmal atrial fibrillation; Z51.5 Encounter for palliative care; Z66 Do not resuscitate; Z99.2 Dependence on renal dialysis